=== PATIENT | female | born 1990 | race Caucasian/White ===

== ENCOUNTER 2022-01-14 00:55 | Emergency (ER) | payer BC, SELFPAY ==
[2022-01-14 01:13] VITALS: BP 129/81; PULSE 94; RESP 18; TEMP 36.3; O2SAT 99
--- NOTE | 2022-01-14 01:33 | ED_ITS ---
HPI - General Adult General Date Seen: 01/14/22 Chief complaint: Laceration/Wound Stated complaint: Infected incision post Time Seen by Provider: 01/14/22 01:17 Source: patient History of Present Illness HPI narrative: Patient is a 31-year-old woman who had a baby on December 31 at [facility]. She had a . She comes in because of concerns about her incision, which seems like it has been a little bit red on 1 and. She says it has been improving, she has been trying to take extra good care, but she wanted to make sure it looked okay. She also says that she had an IUD placed after her delivery, which she says came out when she was straining to have a bowel movement. She also has rash on her face. She also has had hives which are now improved. She also thinks the urinary catheter which was placed was removed without the balloon completely lowered because she has had urethral pain since it was removed. She denies symptoms of a bladder infection. She has not had fevers. Related Data Home Medications Medication Instructions Recorded Confirmed albuterol sulfate 90 mcg/actuation inhalation 01/14/22 aerosol inhaler (Ventolin HFA) bisacodyl 10 mg rectal suppository mg ME 01/14/22 Allergies Allergy/AdvReac Type Severity Reaction Status Date / Time Sulfa (Sulfonamide Allergy Verified 01/14/22 01:12 Antibiotics) Review of Systems Status of ROS: Reports: 10 or more systems reviewed and unremarkable except as noted in History and below [facility] Social History Smoking Status: Unknown if ever smoked Do you use any of these nicotine containing products: None Second hand tobacco smoke exposure: No Non-prescribed substance use: denies use Exam Narrative: Exam Narrative: Vital signs as noted above. In general, an alert, well-appearing patient. Head: Normocephalic, atraumatic. Eyes: Pupils are equal reactive. Extraocular movements are full. Conjunctivae are normal. ENT: Mucous membranes are moist. Throat is normal. Neck: Supple without lymphadenopathy. Heart: Regular rate and rhythm. No murmur or rub. Lungs: Clear bilaterally. No increased work of breathing, crackles or wheezes. Abdomen: Soft and nontender. scar is well healed. On the left end there is a small stitch abscess. No surrounding cellulitis. Extremities: Well perfused. No edema. No calf tenderness. Pulses intact. Neurologic: Patient is alert and oriented to person and place. Speech is fluent. Face is symmetric. Moves all extremities equally. Affect: Normal. Skin: Warm and dry. Well perfused. I do not see any hives at this time. On her face she has several scattered patches of erythematous and crusted lesions consistent with impetigo. Const: Vital Signs, click to edit/add: Vital Signs - 24 hr 01/14/22 01:13 Temperature 97.3 F L Pulse Rate [Right Pulse Oximeter] 94 Respiratory Rate 18 Blood Pressure [Le ft Upper Arm] 129/81 Pulse Oximetry 99 Oxygen Delivery Me thod Room Air Documenting provider has reviewed patient's vital signs: yes Course Course Hospital Course: She declines urinalysis today, she says her symptoms do not feel consistent with a urinary tract infection, she thinks it is related to the catheter. With regard to her IUD, I have asked her to follow that up with her OB Gyne. I think her incision looks fine, I think that the little stitch abscess looks like it is opened and healing fine. No evidence of other infection, seroma or other concerning findings with her incision. She does appear to have some impetigo on her face which we will treat with Keflex. Hives seem to have resolved. She has not previously been on antibiotics. Encouraged her to follow up with her Ob for care as planned, sooner for any worsening symptoms. Vital Signs Vital signs: Initial Vital Signs Temperature 97.3 F L 01/14/22 01:13 Temperature Source Temporal Artery Scan 01/14/22 01:13 Pulse Rate 94 01/14/22 01:13 Pulse Rhythm 01/14/22 01:13 Respiratory Rate 18 01/14/22 01:13 Blood Pressure 129/81 01/14/22 01:13 Blood Pressure Mean 97 01/14/22 01:13 Blood Pressure Position Semi-Fowlers 01/14/22 01:13 Pulse Oximetry 99 01/14/22 01:13 Oxygen Delivery Method 01/14/22 01:13 Vital Signs Temperature 97.3 F L 01/14/22 01:13 Pulse Rate 94 01/14/22 01:13 Respiratory Rate 18 01/14/22 01:13 Blood Pressure 129/81 01/14/22 01:13 Pulse Oximetry 99 01/14/22 01:13 Oxygen Delivery Method 01/14/22 01:13 Temperature 97.3 F L 01/14/22 01:13 Pulse Rate 94 01/14/22 01:13 Respiratory Rate 18 01/14/22 01:13 Blood Pressure 129/81 01/14/22 01:13 Pulse Oximetry 99 01/14/22 01:13 Oxygen Delivery Method 01/14/22 01:13 Discharge Plan Discharge Clinical Impression: Encounter for postoperative wound check, Impetigo Patient Disposition: Home, Self-Care Condition: Stable Instructions: Impetigo (ED) Additional Instructions: Antibiotic as prescribed for impetigo. Follow-up with your OB as planned for care. Concerns at that time. If you feel your incision is worsening in terms of redness, swelling, pain, follow up sooner. Prescriptions: No Action bisacodyl 10 mg suppository ME Label Comments: UNWRAP AND INSERT 1 SUPPOSITORY RECTALLY EVERY DAY NEEDED albuterol sulfate [Ventolin HFA] 90 mcg/actuation HFA aerosol inhaler INHALATION Label Comments: INHALE 2 PUFFS BY MOUTH EVERY 4 HOURS NEEDED FOR WHEEZING OR SHORTNESS OF BREATH Stand Alone Forms: [facility] Info Instructions
--- OUTSIDE RECORDS SUMMARY | 2022-01-14 01:41 | XMS_ITS | Encounter Summary ---
:1990 Author Organization [facility] Address [address] [place] [id number] Phone Care Team Providers Name Role Phone Pcp, No Primary Care Provider Unavailable Encounter Details Date Type Department Care Team Description 08/17/2019 Travel Social History Tobacco Use Types Packs/Day Years Used Date Smoking Tobacco: Never Alcohol Use Standard Drinks/Week Comments No 0 (1 standard drink = 0.6 oz pure alcoho l) 12/01/11 denies Sex Assigned at Date Recorded Not on file COVID-19 Exposure Response Date Recorded In the last month, have you been in contact Unable to assess 08/17/2019 3:06 PM CDT with someone who was confirmed or suspected to have Coronavirus / COVID-19? 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
--- OUTSIDE RECORDS SUMMARY | 2022-01-14 01:41 | XMS_ITS | Encounter Summary ---
:1990 Author Organization [facility] Address [address] [place] [address] Phone Care Team Providers Name Role Phone Pcp, No Primary Care Provider Unavailable Reason for Visit Auth/Cert (Routine) Specialty Diagnoses / Procedures Referred By Contact Refer red To Contact NURSE MIDWIFERY Neha Hodges MD Thread Tool Grinder Set Up Operator [id number] [place] [address] Phone: Fax: Referral ID Status Reason Start Date Expiration Date Visits Requ ested Visits Authorized [id number] 11/26/2021 1 1 Encounter Details Date Type Department Care Team Description 11/26/2021 - Hospital Encounter [facility] Neha Hodges MD [address] [id number] Antepartum 11/30/2021 701 Maria Del Carmen Steele MD [address] [id number] complication of [address] [place], [place] [address] Social History Tobacco Use Types Packs/Day Years Used Date Smoking Tobacco: Never Alcohol Use Standard Drinks/Week Comments No 0 (1 standard drink = 0.6 oz pure alcoho l) 12/01/11 denies Sex Assigned at Date Recorded Not on file documented as of this encounter Last Filed Vital Signs Vital Sign Reading Time Taken Comments Blood Pressure 118/67 11/30/2021 9:41 AM CDT Pulse 77 11/30/2021 9:42 AM CDT Temperature 36.4 ??C (97.5 ??F) 11/30/2021 9:41 AM CDT Respiratory Rate 18 11/30/2021 9:41 AM CDT Oxygen Saturation 98% 11/30/2021 9:42 AM CDT Inhaled Oxygen Concentration - - Weight - - Height - - Body Mass Index - - documented in this encounter Discharge Summaries Maria Del Carmen Bravo MD - 11/30/2021 2:38 PM CDT Images from the original note were not included. ANTEPARTUM DISCHARGE - PGY 4 Anjali Hoang : 1990 Sex: female Admit Date: 11/26/2021 Admit Provider: Neha Hodges MD Discharge Date: 11/30/21 Discharge Provider: Maria Del Carmen Bravo MD Admission Diagnosis: - IUP at 32w0d - Severe opiate use disorder - Hx prior x1 (high transverse) - Yeast vaginitis - MDD/EVAN - ADHD - Hx Hep C infection, resolved - Mild intermittent asthma, albuterol prn - GHTN, FGR in prior preg - H/o cerebral arterial malformation Discharge Diagnosis: - IUP at 32w4d - Gestational diabetes Procedures performed: - GCT - TDAP Admission History: Anjali Hoang is a 31 y.o. at 32w0d by LMP c/w 7w US who presents today for MAT. Her main complaints today include ongoing painful susi horses in her legs, fatigue and vaginal itching/discharge that seems like yeast. She has a longstanding h/o drug use starting at the age of 20. Her last use was 11/25. She has recently used herion, fentanyl which is sometimes laced with methamphetamines. She has previously been on MAT with [employer]. She is not currently having withdrawal symptoms but was told to come in today to start MAT. She was previously receiving care at [facility] and [facility], but was told there may be more support for her here at [facility]. She was last seen in clinic on 09/08/2021 by M at 20w5d who recommended delivery between 37 and 38 weeks via repeat CS. She is planning to have a BTL with this procedure. During this discussion, UDS at time of delivery and assessment of meconium for screening for baby was recommended and she agreed. G iven prior h/o ASD/PFO, echocardiogram was recommended as well. Discussed patient's history of cerebral arterial malformation and that it should not affect the . Her last delivery was 14 months ago at [facility]. She was admitted for Subutex reinitiation. Hospitalization Course: Anjali previously had severe precipitated withdrawal while starting Subutex therapy and hopes to avoid this. Her last use was the morning of her admission. This was discussed with addiction medicine, and decision was made to do a micro- induction in order to avoid precipitated withdrawal. Even so, Anjali was very hesitant to start Subutex out of fear of precipitated withdrawal, but eventually agreed to proceed. On HD#1 she was started on a 0.5 mg dose which was then increased to a 1 mg dose. She tolerated this well without symptoms of precipitated withdrawal. On HD#2 she was then transitioned to thestandard induction dose of 2 mg followed by 6 mg 30 minutes later, followed a second dose 8 mg laterthat night. On HD#3 she was continued on an 8mg BID dose. On HD#4 she was transitioned back to her home dose of 8 mg AM, 8 mg PM, and 2 mg qHS. She continued to have withdrawal symptoms at this dose and we discussed increasing the dose but she did not want to increase the dose. During her stay she was given standard adjuvant medications to help with withdrawal symptoms. She found gabapentin to be this most helpful medication. She was discharged with a 30 day supply of Gabapentin at the recommendation of addiction medicine. Her withdrawal symptoms gradually improved as her induction progressed. She will discharge to home with plans to restart treatment in her prior outpatient MAT treatment program in [facility]. During her stay she only rarely allowed monitoring. She completed a GCT which was elevated at 203 indicating a diagnosis of GDM. Blood glucoses were monitored in house. She was not interested in monitoring blood glucose levels at home. She stopped her Wellbutrin, Buspar, and Vyvanse when she started using again in the 2.5 weeks prior to admission. She was restarted on Wellbutrin and Buspar for MDD/EVAN. Her Vyvanse was not restarted. She has a history GHTN. Her HELLP labs were normal, and BP were normotensive. She was diagnosed with yeast on admit and was given Diflucan. She is considering having a tubal ligation after delivery. She signed FTP paperwork on 11/27. She plans to transfer her care to [facility] and was set up with this for discharge. Follow-Up: - She is to return to the [facility] clinic on 12/15/21 for a visit and a growth US - She will follow up with her MAT provider, Dr. Carroll, as scheduled She is to call or return to clinic immediately for temperature greater than 101 degrees F, vaginal bleeding, contractions, decreased movement and pain not controlled with prescribed medications. She was given prescriptions for Medication List START taking these medications * GABApentin 300 mg Capsule Commonly known as: NEURONTIN Take 1 capsule (300 mg) by mouth twice daily. * GABApentin 600 mg Tabs Commonly known as: NEURONTIN Take 1 tablet (600 mg) by mouth at bedtime. Senexon-S 8.6-50 mg tablet Generic drug: sennosides-docusate sodium Take 1-2 tablets by mouth twice daily as needed for Constipation. * This list has 2 medication(s) that are the same as other medications prescribed for you. Read thedirections carefully, and ask your doctor or other care provider to review them with you. CHANGE how you take these medications hydrOXYzine 25 mg tablet Commonly known as: ATARAX;VISTARIL Take 1-2 tablets (25-50 mg) by mouth every 6 hours as needed for Anxiety. What changed: medication strength how much to take how to take this when to take this reasons to take this STOP taking these medications cloNIDine 0.1 mg Tabs Commonly known as: CATAPRES Where to Get Your Medications These medications were sent to [facility] [place] [id number] Hours: 01/11 GABApentin 300 mg Capsule GABApentin 600 mg Tabs hydrOXYzine 25 mg tablet Senexon-S 8.6-50 mg tablet Attending for the discharge: Pace. Jose Gonzalze MD MPH STONE TRIMMER PGY-4 DISCHARGE FACULTY NOTE On the date of the resident's note, I personally participated in the final examination and review ofhospitalization and concur with the discharge plans and follow-up as outlined. I discussed with the resident and agree with the resident???s findings and plan documented in the resident???s note from above. Any revisions by me are documented. The discharge process has taken: greater than 30 minutes Maria Del Carmen Bravo MD, 12/09/2021 1:43 AM documented in this encounter Medications at Time of Discharge Medication Sig Dispensed Refills Start Date End Date sennosides-docusate Take 1-2 tablets by 60 tablet 3 022 sodium (STOOL mouth twice daily as SOFTENER/LAXATIVE) 8.6-50 needed for mg oral tablet Constipation. hydrOXYzine Take 1-2 tablets 120 tablet 0 11/30/2021 (ATARAX;VISTARIL) 25 mg (25-50 mg) by mouth oral tablet every 6 hours as needed for Anxiety. GABApentin (NEURONTIN) Take 1 capsule (300 120 capsule 2 300 mg oral capsule mg) by mouth twice daily. GABApentin (NEURONTIN) Take 1 tablet (600 105 tablet 2 11/30 600 mg oral TABS mg) by mouth at bedtime. documented as of this encounter Progress Notes Maria Del Carmen Bravo MD - 11/30/2021 2:38 PM CDT [facility] Antepartum Progress Note PGY-4 S: Irritable this morning, and really wants to be discharged. Is OK staying at her prior dose of buprenorphine. States she feels like her prior dose will keep her safe even though she relapsed on that dose before. Also wants nicotine replacement; her vape is out of solution. O: Patient Vitals for the past 24 hrs: BP Temp Temp src Pulse Resp SpO2 11/30/21 0942 -- -- -- 77 -- 98 % 11/30/21 0941 118/67 36.4 ??C (97.5 ??F) Tympanic -- 18 -- 11/30/21 0013 120/73 36.7 ??C (98.1 ??F) Tympanic 84 17 -- Gen: alert, appears mildly restless, NAD CV: regular rate Resp: non-labored breathing on room air Abd: gravid Ext: no edema, calves non-tender Declined monitoring today, last 11/26 BL 140, mod shayla, +accels, no decels, no ctx on toco A/P: Anjali Hoang is a 31 y.o. at 32w4d now HD#5 admitted for resumptions of MAT for OUD. notable for: Opioid use disorder restarting MAT, MDD, EVAN, ADHD, mild- intermittent asthma,class I obesity, hx HTCS, hx FGR in prior preg, scant PNC # Opioid use disorder - MAT therapy resumed this admission. S/p 2D of Subutex 8 mg BID > D#1 of 11/16, 2 qHS (home regimen). PM dose to be given at 1700 rather than 2000; which is what she takes at home.>D#2 11/16, 2Qhs - Continue COWS score q4h - Continue adjunctive agents for management of withdrawal symptoms including clonidine, Vistaril, gabapentin, Flexeril, Imodium, melatonin, Tylenol, antiemetics. - Gabapentin scheduled as this has been very helpful - current dose 300/300/400 (higher dose at night due to symptoms in early AM) - Has Subutex available at home for discharge - s/p addiction medicine consult. They will see her today. She plans to discharge to previous outpatient program. Of note, her partner with home she lives ([facility]) is currently using. - UDS on admission positive for Fentanyl, oxycodone, amphetamines - Infectious work up including HIV, Hep C PCR, Hep B negative # MDD # EVAN # ADHD - Continue BANDMILL OPERATOR Wellbutrin, Buspar - Holding BANDMILL OPERATOR Vyvanse # Mild intermittent asthma - Continue PRN albuterol # Chronic constipation - PRN Dulcolax 10 mg suppository daily-- this is patient's preferred method of constipation management. - Continue BANDMILL OPERATOR Senokot, milk of magnesia # Normocytic anemia - PO ferrous sulfate every other day; held inpatient due to general discomfort - Consider iron studies prior to discharge, or when patient more accepting of lab draws # Left carotid arterial malformation - s/p MFM, no intervention indicated and no affect on current # Hx FGR - Plan for growth US in third trimester # Hx GHTN - Baseline HELLP labs and UPC wnl. BPs wnl. # well being - FHT appropriate for gestational age when last assessed 11/26. - Continue TID monitoring when allowed by patient # PNC - Rh pos, GBS pos, other PNL wnl - GCT today - TDAP today # Delivery planning - Scheduled repeat section at 37 weeks given hx HTCS Ppx: SCDs for DVT ppx Maria Del Carmen Bravo MD, 11/30/2021 5:07 PM Judie Matos RN - 11/30/2021 2:36 PM CDT DISCHARGE NOTE D: Patient has been discharged. A: (As documented in the Discharge Planning Flowsheet) Discharge Instructions (AVS): AVS given Discharge clothing/valuables: has adequate clothing Discharge medications: patient received medications (including gabapentin) Home equipment status: no equipment needed Home equipment/supplies recommended: none Final discharge destination: Home or self care R: The patient understood the AVS. Patient felt safe to discharge and all questions were answered prior to leaving. P: Support patient if they call back with questions. Judie Matos RN, 11/30/2021 2:36 PM Neha Hodges MD - 11/29/2021 12:54 PM CDT [facility] Antepartum Progress Note PGY-4 S: Feeling a little better this morning. Still has muscle cramping; massage and baths have helped. Denies contractions, leaking fluid, vaginal bleeding. Endorses normal movement. O: Patient Vitals for the past 24 hrs: BP Temp Temp src Pulse Resp SpO2 11/29/21 0800 128/77 36.2 ??C (97.2 ??F) Tympanic 99 17 98 % 11/28/21 1955 123/89 36.7 ??C (98.1 ??F) -- 109 -- 100 % 11/28/21 1618 130/72 36.5 ??C (97.7 ??F) -- 97 -- 98 % Gen: alert, appears mildly restless, NAD CV: regular rate Resp: non-labored breathing on room air Abd: gravid Ext: no edema, calves non-tender Declined monitoring today, last 11/26 BL 140, mod shayla, +accels, no decels, no ctx on toco A/P: Anjali Hoang is a 31 y.o. at 32w3d now HD#4 admitted for resumptions of MAT for OUD. notable for: Opioid use disorder restarting MAT, MDD, EVAN, ADHD, mild- intermittent asthma,class I obesity, hx HTCS, hx FGR in prior preg, scant PNC # Opioid use disorder - MAT therapy resumed this admission. S/p 2D of Subutex 8 mg BID > D#1 of 11/16, 2 qHS (home regimen). PM dose to be given at 1700 rather than 2000; which is what she takes at home. - Continue COWS score q4h - Continue adjunctive agents for management of withdrawal symptoms including clonidine, Vistaril, gabapentin, Flexeril, Imodium, melatonin, Tylenol, antiemetics. - Gabapentin scheduled as this has been very helpful - current dose 300/300/400 (higher dose at night due to symptoms in early AM) - Has Subutex available at home for discharge - s/p addiction medicine consult. Will have them follow-up with her on Tuesday. She plans to discharge to previous outpatient program. Of note, her partner with home she lives (FOB) is currently using. - UDS on admission positive for Fentanyl, oxycodone, amphetamines - Infectious work up including HIV, Hep C PCR, Hep B negative # MDD # EVAN # ADHD - Continue BANDMILL OPERATOR Wellbutrin, Buspar - Holding BANDMILL OPERATOR Vyvanse # Mild intermittent asthma - Continue PRN albuterol # Chronic constipation - Begin PRN Dulcolax 10 mg suppository daily-- this is patient's preferred method of constipation management. - Continue BANDMILL OPERATOR Senokot, milk of magnesia # Normocytic anemia - PO ferrous sulfate every other day; held inpatient due to general discomfort - Consider iron studies prior to discharge, or when patient more accepting of lab draws # Left carotid arterial malformation - s/p MFM, no intervention indicated and no affect on current # Hx FGR - Plan for growth US in third trimester # Hx GHTN - Baseline HELLP labs and UPC wnl. BPs wnl. # well being - FHT appropriate for gestational age when last assessed 11/26. - Continue TID monitoring when allowed by patient # PNC - Rh pos, GBS pos, other PNL wnl - GCT today - TDAP today # Delivery planning - Scheduled repeat section at 37 weeks given hx HTCS Ppx: SCDs for DVT ppx Jose Gonzalez MD MPH STONE TRIMMER PGY-4 11/29/2021 12:54 FACULTY NOTE I saw and evaluated the patient with the resident on 11/29/2021. I discussed and agree with findings and plan documented in Dr. Gonzalez's note dated 11/29/2021. Any revisions by me are documented. Neha Hodges MD, 11/29/2021 2:27 PM Chela Barakat MD - 11/28/2021 11:16 AM CDT [facility] Antepartum Progress Note PGY-4 S: Reports generally feeling unwell without specific bothersome symptoms. Denies contractions, leaking fluid, vaginal bleeding. Endorses normal movement. Denies dysuria, cramping. O: Patient Vitals for the past 24 hrs: BP Temp Temp src Pulse Resp SpO2 11/28/21 0800 126/69 36.7 ??C (98.1 ??F) Tympanic 93 16 98 % 11/27/212020 124/78 37 ??C (98.6 ??F) Tympanic 97 18 98 % Gen: alert, appears mildly restless, NAD CV: regular rate Resp: non-labored breathing on room air Abd: gravid Ext: no edema, calves non-tender Membranes: Intact Declined monitoring today, last 11/26 BL 140, mod shayla, +accels, no decels, no ctx on toco A/P: Anjali Hoang is a 31 y.o. at 32w2d now HD#3 admitted for resumptions of MAT for OUD. notable for: Opioid use disorder restarting MAT, MDD, EVAN, ADHD, mild- intermittent asthma,class I obesity, hx HTCS, hx FGR in prior preg, scant PNC # Opioid use disorder - MAT therapy resumed this admission. Continue Subutex 8 mg BID. - Continue COWS score q4h - Continue adjunctive agents for management of withdrawal symptoms including clonidine, Vistaril, gabapentin, Flexeril, Imodium, melatonin, Tylenol, antiemetics - UDS on admission positive for Fentanyl, oxycodone, amphetamines - Infectious work up including HIV, Hep C PCR, Hep B negative # MDD # EVAN # ADHD - Continue BANDMILL OPERATOR Wellbutrin, Buspar - Holding BANDMILL OPERATOR Vyvanse # Mild intermittent asthma - Continue PRN albuterol # Chronic constipation - Begin PRN Dulcolax 10 mg suppository daily-- this is patient's preferred method of constipation management. - Continue BANDMILL OPERATOR Senokot, milk of magnesia # Normocytic anemia - Begin PO ferrous sulfate every other day - Consider iron studies prior to discharge, or when patient more accepting of lab draws # Left carotid arterial malformation - s/p MFM, no intervention indicated and no affect on current # Hx FGR - Plan for growth US in third trimester # Hx GHTN - Baseline HELLP labs and UPC wnl. BPs wnl. # well being - FHT appropriate for gestational age when last assessed 11/26 - Continue TID monitoring when allowed by patient # PNC - Rh pos, GBS pos, no GCT, other PNL wnl # Delivery planning - Scheduled repeat section at 37 weeks given hx HTCS Ppx: SCDs for DVT ppx Jamison Carcamo MD STONE TRIMMER Resident PGY-4 11/28/2021 11:38 FACULTY NOTE I saw and evaluated the patient Today, 11/28/2021. I discussed with the resident and agree with the resident???s findings and plan documented in the resident???s note from above. Any revisions by me aredocumented. Chela Barakat MD, 11/28/2021 5:07 PM Niesha Mcguire MD - 11/27/2021 1:22 PM CDT Antepartum Progress Note S: Patient feeling unwell today. She has complaints of feeling hot and back pain. She is very concernedabout going into precipitated withdrawal because this has happened to her in the past. Denies contractions, leakage of fluid or vaginal bleeding. She does not feel like she would be able to go home tomorrow as she thinks she won't be ready. She states that she needs more time. Does not feel like she would be able to tolerate a growth US today. Patient states she will likely go home at the time of discharge. She would need her boyfriend to pick her up. However, her boyfriend also uses drugs. He has previously been in MAT but is not currently. notable for: - Opioid use disorder, restarting MAT - MDD/EVAN, ADHD - H/o Hep C infection, resolved - Mild intermittent asthma - H/o gHTN in prior - H/o high transverse CS - H/o FGR in prior - BMI 31 - H/o cerebral arterial malformation O: Patient Vitals for the past 24 hrs: BP Temp Temp src Pulse Resp SpO2 11/27/21 0820 -- -- -- 78 -- -- 11/27/21 0400 111/57 36.7 ??C (98.1 ??F) -- 77 -- -- 11/27/21 0357 111/57 36.7 ??C (98.1 ??F) Tympanic 77 18 95 % 11/26/21 2357 118/72 36.8 ??C (98.3 ??F) Tympanic 65 18 97 % Gen: Resting comfortably, NAD CV: RR, well perfused PULM: Non-labored breathing on RA Abd: Gravid, nontender, non-distended Ext: Trace edema b/l FHT: Patient declines monitoring today. Labs: Lab Results Component Value Date/Time WBC 9.99 11/26/2021 1130 RBC 3.31 (L) 11/26/2021 1130 HGB 9.8 (L) 11/26/2021 1130 HCT 29.4 (L) 11/26/2021 1130 PLT 249 11/26/2021 1130 MCV 88.8 11/26/2021 1130 MCH 29.6 11/26/2021 1130 MCHC 33.3 11/26/2021 1130 RDW 12.9 11/26/2021 1130 MPV 10.4 11/26/2021 1130 Lab Results Component Value Date/Time NA 138 11/26/2021 1101 K 3.4 (L) 11/26/2021 1101 CHLORIDE 105 11/26/2021 1101 CO2 21 (L) 11/26/2021 1101 GLU 135 (H) 11/26/2021 1101 UN 8 11/26/2021 1101 CR 0.53 11/26/2021 1130 CA 8.9 11/26/2021 1101 Lab Results Component Value Date/Time ACETUR NEG 11/26/2021 1400 AMPHETAMINE POS (A) 11/26/2021 1400 BARBITURATE NEG 11/26/2021 1400 BENZUR NEG 11/26/2021 1400 COCAINEUR NEG 11/26/2021 1400 COMMENTUR 11/26/2021 1400 [id number], Amphetamine, Methamphetamine, Codeine, Fentanyl, Norfentanyl, Morphine, Tramadol, and Tramadol metabolite present. LSDUR NEG 11/26/2021 1400 METHUR NEG 11/26/2021 1400 OPIUR POS (A) 11/26/2021 1400 PCPUR NEG 11/26/2021 1400 PROPOX NEG 11/26/2021 1400 SALUR NEG 11/26/2021 1400 A/P: Anjali Hoang is a 31 y.o. at 32w1d by LMP c/w 7wk US, HD#2 admitted for antepartum concerns regarding MAT and opioid withdrawal. # Opioid use disorder - Previously on MAT with Subutex. Now undergoing microdosing induction. - COWS scoring Q4H. UDS positive fentanyl, oxycodone, opiate, amphetamine. - Infectious labs reassuring with HIV, Hep C PCR, Hep B sAg nonreactive. Hep B sAb reactive. - Addiction medicine consulted, appreciate recommendations. # MDD/EVAN, ADHD - BANDMILL OPERATOR wellbutrin, buspar restarted in house - Plan to discuss plans for Vyvanz in at a later time # H/o Hep C infection, resolved - PCR previously negative this - Repeat PCR in house negative and LFTs normal # Mild intermittent asthma - No issues currently, PRN albuterol # H/o gHTN in prior - Baseline HELLP labs today nl, UPC 0.12 - Serial BP monitoring # H/o cerebral arterial malformation # Headaches - Per MFM note, not currently impacting . - Tylenol PRN. # FWB - Previously category I, reactive and reassuring. Currently refusing additional monitoring. Pending course, will offer monitoring again later today. # PNC - Rh positive, antibody negative, rubella immune, GBS positive - Third trimester labs Hgb 9.8, RPR nonreactive - Previously agreeable to Tdap PTD, ordered. - HbA1c 5.3% in , GCT not yet performed - Infectious labs previously nonreactive; Ucx no growth - growth US to be ordered likely outpatient per prior MFM recommendation given patient's preference. - Contraception: Undecided but considering BTL, FTP to be signed while in house if possible. Delivery Plan: Given h/o high transverse CS, plans for repeat CS between 37 and 38 weeks gestation. Dispo: Possible discharge to home tomorrow pending course. Patient seen and care plan discussed with Dr. Mcguire. Gigi Ellis MD, MPH Criminal Psychologist PGY-2 11/27/2021 13:22 FACULTY NOTE I saw and evaluated the patient Today, 11/27/2021. I discussed with the resident and agree with the resident???s findings and plan documented in the resident???s note from above. Any revisions by me aredocumented. Niesha Mcguire MD, 11/27/2021 10:03 PM Dennis Barraza RN - 11/26/2021 12:30 PM CDT 0945 pt presents to triage to withdrawal in an inpatient setting. Pt reports that she is about 32 weeks , is an IV drug user (heroin that is often mixed with fentanyl and sometimes meth) and was previously on suboxone but had missed about 2 weeks of doses. She states she was prescribed 8mg BIDand 2mg HS. Pt states that the last time she had a relapse and restarted suboxone she went into an acute withdrawal and is hoping to avoid this this time. Pt reports feeling embarrassed and guilty for her use. RN provided support and reassurance to pt that she is doing the right thing by seeking treatment and that no one here is judging her or is here to make her feel guilty. Commended pt for seeking treatment. OB team notified of pt arrival. Pt also presented with her community living instructor-our SW was notified of pt and handoff completed. RN discussed resources available to pt including but not limited to mother baby program, [facility], [facility] and SW. Pt states interest in possible transferring care from [place]. 1115 NST completed. Pt reporting no s/s of withdrawal at this time. Will notify RN as needed. 1400 pt sleeping soundly Jazzy Montelongo LICSW - 11/26/2021 11:32 AM CDT Inpatient Social Work Note Patient Name: Anjali Hoang Date of : 1990 Age: 31 y.o. MR: [id number] Insurance: [facility] Summary: SW met with patient and patient's [facility] chemical health worker Charisma Mike. SW obtained RUDOLPH tospeak with [facility] and patient's on-going marriage and family social worker. Patient reports that she would like to detox here and then return home to her outpatient treatment. Patient is feeling guilt and shame around her relapse. Patient states that she has had CPS involvement in the past and that she has her oldest son, 8 years old, that is living with his grandparents. Patient reports that her younger son is being cared for right now by her boyfriends mom. Patient states that she and her boyfriend are on good terms and that the only support they would need is therapy and she can get that through [facility]. SW informed that she is here if patient needs/wants to talk more. Jazzy Montelongo LICSW, 11/26/2021 11:39 AM Jazzy Montelongo LICSW, 11/26/2021 11:32 AM documented in this encounter H&P Notes Fiest, Neha K, MD - 11/26/2021 10:31 AM CDT OB HISTORY AND PHYSICAL Anjali Hoang Date of : 1990 HPI: Anjali Hoang is a 31 y.o. at 32w0d by LMP c/w 7w US who presents today for MAT. She denies contractions, leaking fluid, vaginal bleeding. + movement. She also denies headaches, vision changes, SOB, chest pain, nausea/vomiting, fevers/chills, dysuria, and foul-odor discharge. Her main complaints today include ongoing painful susi horses in her legs, fatigue and vaginal itching/discharge that seems like yeast. notable for: - Opioid use disorder - MDD/EVAN, ADHD - H/o Hep C infection, resolved - Mild intermittent asthma - H/o gHTN in prior - H/o high transverse CS - H/o FGR in prior - BMI 31 - Desires permanent sterilization - H/o cerebral arterial malformation She has a longstanding h/o drug use starting at the age of 20. Her last use was 11/25. She has recently used herion, fentanyl which is sometimes laced with methamphetamines. She has previously been on MAT with [facility]. She is not currently having withdrawal symptoms but was told to come in today to start MAT. She was previously receiving care at [facility] and [facility], but was told there may be more support for her here at [facility]. She was last seen in clinic on 09/08/2021 by MFM at 20w5d who recommended delivery between 37 and 38 weeks via repeat CS. She is planning to have a BTL with this procedure. During this discussion, UDS at time of delivery and assessment of meconium for screening for baby was recommended and she agreed. Daniela mina prior h/o ASD/PFO, echocardiogram was recommended as well. Discussed patient's history of cerebral arterial malformation and that it should not affect the . Her last delivery was 14 months ago at [facility]. OBGYN History: - - Last Pap: Not on file, due PP - Sexually active: One partner Lab Results: Lab Results Component Value Date/Time ABORHG B POS 11/26/2021 1130 HCT 29.4 (L) 11/26/2021 1130 HGB 9.8 (L) 11/26/2021 1130 HBSAG Nonreactive 11/26/2021 1130 HIVANTIGABY Nonreactive 11/26/2021 1130 GLU 135 (H) 11/26/2021 1101 Patient Active Problem List Diagnosis Date Noted Antepartum complication of 11/26/2021 Opioid use disorder, moderate, dependence () 08/17/2019 HISTORY No past medical history on file. No past surgical history on file. No family history on file. Social History Tobacco Use Smoking status: Never Substance Use Topics Alcohol use: No Comment: 12/01/11 denies Drug use: Yes Types: Heroin Comment: 12/01/11 current heroin use Medications Prior to Admission Medication Sig Dispense Refill cloNIDine (CATAPRES) 0.1 mg oral tablet hydrOXYzine (ATARAX;VISTARIL) 50 mg oral tablet Allergies Allergen Reactions Sulfa Antibiotics Unknown REVIEW OF SYSTEMS: A 10 point review of systems was completed and was negative other than as noted in the HPI. PHYSICAL EXAM BP 123/78 Pulse 98 Temp 36.4 ??C (97.5 ??F) (Tympanic) LMP 04/16/2021 (Approximate) Gen: NAD CV: Regular rate, rhythm Lungs: CTAB, non-labored breathing Abd: Gravid, non-tender, non-distended Ext: Trace peripheral extremity edema FHT: Baseline 125 bpm; moderate variability; accels present; absent decelerations TOCO 0 contractions in 10 minutes Studies: T&S, CBC, BMP, RPR, HELLP labs, UPC, GC/Chlam/Trich, GBS, wet prep, HIV, Hep B sAg, HepB sAb, Hep C PCR, UDS Assessment & Plan: Anjali Hoang is a 31 y.o. at 32w0d by LMP c/w 7w US who presents today for MAT. # Opioid use disorder - Previously on MAT with Subutex. - Over last two weeks, not able to fill prescription and started using again. - Hoping to restart Subutex in controlled environment. - Planning to manage with [facility] protocol Opioid inpatient withdrawal Guidelines. - COWS scoring Q4H - Discusses case with addiction medicine who would be available to meet with patient tomorrow. Appreciate recommendations. 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 - Tylenol PRN. # FWB - Category I, reactive and reassuring # PNC - Reviewed outside records today. - Rh positive, antibody negative, rubella immune - HbA1c 5.3%, GCT not yet performed - Infectious labs previously nonreactive; Ucx no growth - Repeat labs ordered today including T&S, CBC, RPR, Hep B sAg, Hep C PCR, HIV - growth US to be ordered in house vs outpatient per prior MFM recommendation - MOD: Repeat CS at 37-38w - Contraception: Undecided but considering BTL, FTP to be signed while in house # FWB: Cat I tracing, no interventions at this time - TID Monitoring Patient seen and discussed with Dr. Hodges. Gigi Ellis MD, MPH STONE TRIMMER PGY-2 11/26/2021 18:03 FACULTY NOTE I saw and evaluated the patient on 11/26/2021. I discussed and agree with findings and plan documented in Dr. Ellis's note dated 11/26/2021. Any revisions by me are documented. Neha Hodges MD, 11/26/2021 9:06 PM documented in this encounter Consult Notes Nikki Schulz APRN, E/M ENGINEER - 11/27/2021 12:33 PM CDTAssociated Order(s): CONSULT TO ADDICTION MEDICINE PHYSICIAN/ADVANCED PRACTICE PROVIDER Addiction consult completed on 11/27/2021 Nikki Schulz APRN, E/M ENGINEER, 11/27/2021 12:33 PM documented in this encounter Miscellaneous Notes Restricted notes were excluded Addiction Medicine Consult - Yuni Barakat PA-C - 11/30/2021 12:52 PM CDT ADDICTION MEDICINE PROVIDER follow up Anjali Hoang : 1990 Sex: female DISCLOSURE OF THIS MATERIAL IS PROHIBITED BY LAW. Do not copy this information into the medical record. REASON FOR CONSULT: I was asked to see Anjali Hoang by Neha Hodges regarding Induction onto buprenorphine. S: Patient ready to discharge, has a follow up with her provider tomorrow, 12/01. She feels the subutex dose is going well and she thinks she will stay at this dose. She finds gabapentin helpful for back pain and is interested in continuing it. Addiction Medicine Problem List: Opioid use disorder, severe- Return to the use of fentanyl the last 2 weeks , 32 weeks Hx Mood disorders including MDD,/EVAN, ADHD Recommendations: Okay to send with 30-day prescription of gabapentin 300 mg bid plus 600 mg at bedtime. Bridge script of subutex at previously stable dose 8 BID and 2mg HS x 7 days sent to discharge pharmacy. Patient should follow up with Dr. Carroll for ongoing management. Physical Exam: BP 118/67 (Cuff Location: Right Arm) Pulse 77 Temp 36.4 ??C (97.5 ??F) (Tympanic) Resp 18 LMP 04/16/2021 (Approximate) SpO2 98% There is no height or weight on file to calculate BMI. Physical Exam Constitutional: General: She is sleeping. Appearance: Normal appearance. HENT: Head: Normocephalic. Eyes: Conjunctiva/sclera: Conjunctivae normal. Right eye: Right conjunctiva is not injected. Left eye: Left conjunctiva is not injected. Comments: Pupils moderately dilated Pulmonary: Effort: Pulmonary effort is normal. Abdominal: Comments: Visibly Skin: General: Skin is moist. Neurological: Mental Status: She is oriented to person, place, and time. Psychiatric: Mood and Affect: Mood normal. Speech: Speech normal. Behavior: Behavior normal. Thought Content: Thought content normal. Other Diagnostic Studies: Primary care physician: No PCP I have spent 15 minutes with this patient today in which greater than 50% of this time was spent incounseling/coordination of care regarding OUD. Yuni Barakat PA-C 11/30/2021 12:52 DISCLOSURE OF THIS MATERIAL IS PROHIBITED BY LAW. 42 CFR part 2 prohibits disclosure of these records. This section of the Code of Federal Regulation prohibits you from making disclosure of this information unless disclosure is expressly permitted by the written consent of the person to whom it pertains or has otherwise permitted by 42 CFR, Part 2. A general authorization for the release of medical or other information is NOT sufficient for this purpose. 42 CFR , Part 2 restricts any use of the information to criminally investigate or prosecute any alcohol and/or drug abuse by the client. Nursing Assessment - Judie Matos RN - 11/30/2021 10:19 AM CDT Nursing Assessment Head to Toe Head to Toe Assessment Shift Summary Shift Summary Patient is very irritable this afternoon and not easy to redirect. She has been calling out with call light saying she needs to go. Awaiting d/c orders to print paperwork and meds to arrive from pharmacy. Judie Matos RN, 11/30/2021 2:22 PM Neurologic/Cognitive Within Defined Limits HEENT Within Defined Limits Cardiac Within Defined Limits Respiratory Within defined limits Neurovascular Within Defined Limits Gastrointestinal Within Defined Limits Abdominal appearance: Comments: Currently 32+4 weeks . Denies any leaking fluid, bleeding or contractions. Endorses +FM. Genitourinary Within Defined Limits Musculoskeletal Within Defined Limits Integumentary Within Defined Limits Patient Lines/Drains/Airways Status Active LDAs None Psychosocial Within Defined Limits Comments: No visitors at bedside. Judie Matos RN, 11/30/2021 10:25 AM Nursing Assessment - Savana Mcdonald RN - 11/30/2021 1:02 AM CDT Nursing Assessment Head to Toe Head to Toe Assessment Shift Summary Shift Summary Neurologic/Cognitive Within Defined Limits HEENT Within Defined Limits Cardiac Within Defined Limits Respiratory Within defined limits Neurovascular Within Defined Limits Gastrointestinal Within Defined Limits Genitourinary Within Defined Limits Musculoskeletal Within Defined Limits Integumentary Within Defined Limits Patient Lines/Drains/Airways Status Active LDAs None Psychosocial Within Defined Limits Nursing Assessment - Evelia Rodriguez RN - 11/29/2021 5:06 PM CDT Nursing OB Assessment Head to Toe Head to Toe Shift Summary D: 32+3 week antepartum pt here for withdrawal management. COWS scores of 6 and 4, respectively. GCTcompleted. Complains mostly of tightness/achiness of hips and abdomen and generalized anxiety. Subutex and Gabapentin were very effective for her symptoms. Endorses movement. Denies contractions,vaginal bleeding, or LOF. Consents to EFM. A: Placed pt on monitor from 2039 to 2109. R: FHR baseline 135, moderate variability, accelerations present, no decelerations. No contractions noted. Paged Gigi Ellis, OB G2 to review strip. P: Continue current plan of care. Monitor TID. Evelia Rodriguez RN, 11/29/2021 10:03 PM Neurologic/Cognitive Within Defined Limits HEENT Within Defined Limits Cardiac Within Defined Limits Respiratory Within defined limits Neurovascular Within Defined Limits Gastrointestinal Assessment Within Defined Limits except for: Additional GI Signs/Symptoms: abdominal discomfort and constipation Genitourinary Within Defined Limits Reproductive Perineum Assessment: Within Defined Limits Breast Assessment: Within Defined Limits Nipples Assessment: Within Definied Limits Musculoskeletal Assessment Within Defined Limits except for: Comments: Generalized tightness/achiness Integumentary Within Defined Limits No annotated images are attached to the encounter. Psychosocial Within Defined Limits Nursing Assessment - Savana Pete RN - 11/29/2021 11:06 AM CDT Nursing OB Assessment Head to Toe Head to Toe Shift Summary Pt is 32w3d. VSS. Reports feeling baby move and no vaginal leakage. Experiencing aching in hips and having nausea. Feels most relief from gabapentin. Did not sleep well last night. RN massaged hips, lowered blinds, and reduced temp of room; pt appreciated comfort measures. As of this morning, she is unsure if she'd like to discharge today. Reinforced that her team wants her to stay as long as she needs to feel supported. 1330 - no plans to discharge today. Preferred PRN meds: gabapentin (see updated order in JUN), acetaminophen, hydroxyzine, ondansetron when nauseous. Requested to delay OGTT until dinner time. Declineduse of SCDs but agreed to flex/point feet in bed for thrombosis prevention. Started Aqua-K pad for hip pain relief AndSavana busby, RN, 11/29/2021 11:13 AM Within Defined Limits HEENT Within Defined Limits Cardiac Within Defined Limits Respiratory Within defined limits Neurovascular Within Defined Limits Gastrointestinal Within Defined Limits Abdominal appearance: Genitourinary Within Defined Limits Reproductive Perineum Assessment: Within Defined Limits Breast Assessment: Within Defined Limits Nipples Assessment: Within Definied Limits Musculoskeletal Within Defined Limits Integumentary Within Defined Limits No annotated images are attached to the encounter. Psychosocial Within Defined Limits Psychosocial Assessment: Observed Patient Behaviors: Flat affect and quiet/withdrawn Verbalized Emotional State: Acceptance Family Behavior: not present Nursing Assessment - Savana Mcdonald RN - 11/28/2021 11:54 PM CDT Nursing OB Assessment Head to Toe Head to Toe Shift Summary Shift Summary Neurologic/Cognitive Within Defined Limits HEENT Within Defined Limits Cardiac Within Defined Limits Respiratory Within defined limits Neurovascular Within Defined Limits Gastrointestinal Within Defined Limits Genitourinary Within Defined Limits Reproductive Reproductive Musculoskeletal Assessment Within Defined Limits except for: Comments: Back pain Integumentary Within Defined Limits No annotated images are attached to the encounter. Psychosocial Within Defined Limits Nursing Assessment - Jannet Taylor RN - 11/28/2021 5:25 PM CDT Nursing OB Assessment Head to Toe Head to Toe Shift Summary Shift Summary Shift: (1530_1700) Vital signs stable, room air. COWS score of 3, pt appears to be resting comfortably in bed. C/o ongoing low back pain 5/10, refused pain meds. Requested anti anxiety meds, hydroxyzine given. Wants Gabapentin at bedtime. Endorses movement, denies any contraction, leaking fluid or vaginal bleeding. Unable to do monitoring, pt wants to rest and wants to do it later. SCD in room, pt refused to wear. BP 130/72 Pulse 97 Temp 36.5 ??C (97.7 ??F) Resp 16 LMP 04/16/2021 (Approximate) SpO2 98% Neurologic/Cognitive Assessment Within Defined Limits except for: Neurologic/Cognitive Assessment: Mood/Behavior: Anxious and flat affect HEENT Within Defined Limits Cardiac Within Defined Limits Respiratory Within defined limits Neurovascular Within Defined Limits Gastrointestinal Within Defined Limits Genitourinary Within Defined Limits Reproductive Reproductive Musculoskeletal Within Defined Limits Integumentary Within Defined Limits No annotated images are attached to the encounter. Psychosocial Assessment Within Defined Limits except for: Psychosocial Assessment: Observed Patient Behaviors: Flat affect Family Behavior: not present Nursing Assessment - Savana Pete RN - 11/28/2021 9:57 AM CDT Nursing OB Assessment Head to Toe Head to Toe Shift Summary Pt is 32w2d. Admitted for medical detox. Her biggest concern today was that she swallowed her subutex last night (instead of taking sublingual) and that she will have withdrawal repercussions from that. RN offered hydroxyzine but pt declined. She expressed concern that she was being forced out of the hospital; RN let her know that we want her to stay here until she is comfortable discharging. She wasopen to vitals being measured and is open to FHR monitoring later today. Her face appeared moist with sweat and her feet were fidgeting but she was calm overall and cooperative with plan of care. Savana Pete RN, 11/28/2021 10:04 AM Neurologic/Cognitive Within Defined Limits HEENT Within Defined Limits Cardiac Within Defined Limits Respiratory Within defined limits Neurovascular Within Defined Limits Gastrointestinal Abdominal appearance: Comments: No BM during admission (~48 hours); pt not concerned and declined meds Genitourinary Within Defined Limits Voiding: Voiding without difficulty Reproductive Perineum Assessment: Within Defined Limits Breast Assessment: Within Defined Limits Nipples Assessment: Within Definied Limits Musculoskeletal Within Defined Limits Integumentary Skin Assessment Color/Characteristics - shiny Moisture - diaphoretic No annotated images are attached to the encounter. Psychosocial Within Defined Limits Psychosocial Assessment: Observed Patient Behaviors: Quiet/withdrawn and pleasant Verbalized Emotional State: Anxiety Family Behavior: not present Nursing Assessment - Savana Mcdonald RN - 11/27/2021 11:41 PM CDT Nursing OB Assessment Head to Toe Head to Toe Shift Summary Pt withdrawn, making needs known and requesting medication as needed. Pt did swallow subutex insteadof MD ANDREAS notified and pharmacist states no additional doses can be given. Pt has been intermittently sleeping, though has been restless in bed, reports back pain -offered heat/ice/pillows-declines. states gabapentin helpful. Pt verbally agreed to EFM this am but is now refusing. Neurologic/Cognitive Within Defined Limits HEENT Within Defined Limits Cardiac Within Defined Limits Respiratory Within defined limits Neurovascular Within Defined Limits Gastrointestinal Within Defined Limits Genitourinary Within Defined Limits Reproductive Reproductive Musculoskeletal Within Defined Limits Integumentary Within Defined Limits No annotated images are attached to the encounter. Psychosocial Assessment Within Defined Limits except for: Psychosocial Assessment: Observed Patient Behaviors: Flat affect, restless and quiet/withdrawn Verbalized Emotional State: Acceptance Addiction Medicine Consult - Nikki Schulz APRN, MIK - 11/27/2021 9:55 AM CDT ADDICTION MEDICINE PROVIDER CONSULT Anjali Hoang : 1990 Sex: female DISCLOSURE OF THIS MATERIAL IS PROHIBITED BY LAW. Do not copy this information into the medical record. REASON FOR CONSULT: I was asked to see Anjali Hoang by Neha Hodges regarding Induction onto buprenorphine. Addiction Medicine Problem List: Opioid use disorder, severe- Return to the use of fentanyl the last 2 weeks , 32 weeks Hx Mood disorders including MDD,/EVAN, ADHD Recommendations: Continue induction onto buprenorphine. Last COWS score of 10 indicates it is safe to start full induction. To induct the patient onto buprenorphine: Give 2mg /0.5mg buprenorphine-naloxone sublingual tablet x one when clinical opioid withdrawal scoreis 8 or more Make sure that precipitated withdrawal does not occur by monitoring for sudden worsening opioid withdrawal symptoms over 30 minutes (stomach cramps, nausea, muscle aches, yawning, stuffy nose) If opioid withdrawal remains the same or even improves slightly, give additional total 6 mg buprenorphine-naloxone sublingual (three 2mg/0.5 mg tablets) Prior to discharge can give a full 8mg of buprenophine. Hold for sedation While inpatient, medications for symptom management can include: On the first 1-2 days of induction onto buprenorphine, can continue these prn's Clonidine 0.1mg q4hr prn withdrawal symptoms, hold for systolic bp <100, pulse <65 Gabapentin 400mg-600mg q6 hr prn Consider olanzapine 5mg IV or 10mg PO q8hr prn Acetaminophen prn immodium for loose stools Antiemetics for nausea Bridge script of subutex at previously stable dose 8 BID and 2mg HS x 7 days sent to discharge pharmacy. Patient should follow up with Dr. Carroll for ongoing management. 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 Managed by Dr. Carroll previously on stable dose of buprenorphine mono product dose of 18mg. Last prescription written for two weeks on 10/16/2021. Also has short rx for 2mg buprenorphine on 11/10/2021 UDS positive for amphetamines and methamphetamines, fentanyl, oxycodone, and 6 acetyl-morphine consistent with heroin. HPI: Patient is a 31 y.o. female admitted on 11/26/2021 for medically supervised induction onto buprenorphine. Patient brought [place] [facility] yesterday and admitted to OB unit for supervised induction onto buprenorphine. 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 She has tried initiation of subutex at home and had precipitated wi thdrawals and returned to use of fentanyl. She is concerned about having precipitated withdrawals again and has hx of withdrawal seizure in the setting of benzodiazapine withdrawals. She reports using fentanyl, smoked, with last use 03/27/22 evening/night. On day of admission this writing spoke with OB team about options for induction onto buprenorphine and it was decided to start with a micro induction with 0.5mg buprenoprhine every 2hours x 4 and then 1mg buprenorphine every 2hour x 4 and then 2mgbuprenoprhine every 2 hours x 4. During this micro induction her COWS score has increased to 8 and 11 per nursing assessment. She has thus far had total of 6mg buprenorphine over the last 8 hours thus recommend starting standard initiation of buprenorphine. Patient received several PRN medications for agitation related to withdrawals this morning and declined to discuss full hx. She was arousable to voice but resting in bed with eyes closed DSM-5 criteria for substance use disorder: Meets at least 2 of the 11 criteria in the past 12 monthsincluding but not limited to Continuing to use substance despite consequences Unable to carry out major obligations due to use Recurrent use of substance in physically hazardous situations Continued use despite personal problems exacerbated substance use Tolerance Withdrawal Using greater amounts or longer than intended Desire or unsuccessful efforts to cut down use Time spent on activities related to use Reduction of activities due to substance use Use despite acknowledgment of physical or psychological difficulties from using substance Craving or a strong desire to use substance Substance-related Medications: Current: withdrawal management medications of gabapentin, hydroxyzine, clonidine, zofran Previous: subutex 18mg Review of systems: (1 = problem pertinent; 2-9 = extended; 10 or more = complete) Unable to obtain review of systems information from family/other source and the patient condition: mental status change. Medical/Surgical History: No past medical history on file. No past surgical history on file. Family History: No family history on file. Family history of seizures: unsure Family history of substance use disorders unknown COWS Resting Pulse: 1 pt: 81-100 Sweatin pts: flushed/observable moistness on face Restlessness: 0 pts: able to sit still Pupils: 2 pts: Moderately Dilated, Aches/pains: 1 pts: Mild diffuse discomfort Runny Nose/Tearin pts: Not Present GI upset last 1/2 hr: 0 pts: No GI symptoms Tremor Outstretched hands: 1 pts: Tremor can be felt, not observed Yawning (Observed): 0 pts: No Yawning Anxiety/Irritability: 1 pts: Patient reports increasing irritability or anxiousness Gooseflesh Skin: 0 pts: None, skin is smooth Total Score: 8 Mild Withdrawal Physical Exam: BP 111/57 Pulse 78 Comment: manual Temp 36.7 ??C (98.1 ??F) Resp 18 LMP 04/16/2021 (Approximate) SpO2 95% There is no height or weight on file to calculate BMI. Physical Exam Constitutional: General: She is sleeping. Appearance: Normal appearance. HENT: Head: Normocephalic. Eyes: Conjunctiva/sclera: Conjunctivae normal. Right eye: Right conjunctiva is not injected. Left eye: Left conjunctiva is not injected. Comments: Pupils moderately dilated Pulmonary: Effort: Pulmonary effort is normal. Abdominal: Comments: Visibly Skin: General: Skin is moist. Neurological: Mental Status: She is oriented to person, place, and time. Psychiatric: Mood and Affect: Mood normal. Speech: Speech normal. Behavior: Behavior normal. Thought Content: Thought content normal. Labs: I have reviewed the admission and today's laboratory results in the EPIC record. CMP Lab Results Component Value Date/Time NA 138 11/26/2021 1101 K 3.4 (L) 11/26/2021 1101 CHLORIDE 105 11/26/2021 1101 CO2 21 (L) 11/26/2021 1101 GLU 135 (H) 11/26/2021 1101 UN 8 11/26/2021 1101 CR 0.53 11/26/2021 1130 CA 8.9 11/26/2021 1101 ALT 25 11/26/2021 1130 AST 25 11/26/2021 1130 Urine Drug Screen Lab Results Component Value Date/Time ACETUR NEG 11/26/2021 1400 AMPHETAMINE POS (A) 11/26/2021 1400 BARBITURATE NEG 11/26/2021 1400 BENZUR NEG 11/26/2021 1400 COCAINEUR NEG 11/26/2021 1400 COMMENTUR 11/26/2021 1400 1-Mkhakd-Ackefbgl, Amphetamine, Methamphetamine, Codeine, Fentanyl, Norfentanyl, Morphine, Tramadol, and Tramadol metabolite present. LSDUR NEG 11/26/2021 1400 METHUR NEG 11/26/2021 1400 OPIUR POS (A) 11/26/2021 1400 OXYCODUR POS (A) 11/26/2021 1400 PCPUR NEG 11/26/2021 1400 PROPOX NEG 11/26/2021 1400 SALUR NEG 11/26/2021 1400 Other Diagnostic Studies: Primary care physician: No PCP Nikki Schulz APRN, MIK 11/27/2021 09:55 DISCLOSURE OF THIS MATERIAL IS PROHIBITED BY LAW. 42 CFR part 2 prohibits disclosure of these records. This section of the Code of Federal Regulation prohibits you from making disclosure of this information unless disclosure is expressly permitted by the written consent of the person to whom it pertains or has otherwise permitted by 42 CFR, Part 2. A general authorization for the release of medical or other information is NOT sufficient for this purpose. 42 CFR , Part 2 restricts any use of the information to criminally investigate or prosecute any alcohol and/or drug abuse by the client. Nursing Assessment - Dennis Barraza RN - 11/27/2021 8:25 AM CDT Nursing Assessment Head to Toe Head to Toe Assessment Shift Summary 0750 pt sleeping soundly 0810 pt awake and medication given. Pt reports feeling terrible but declines additional medication or interventions at this time. Does NOT want to increase subutex at this time. Knows it is an option. 0830 vistiril and clonidine given early-ok per dr. Mcguire. Pt requesting nausea meds and gabapentinas well (requested from pharmacy). Pt declines monitoring and VS. 0840 pt yelling out and irritable. RN offered pt additional comfort measures (fan, heating pad, hydrotherapy, ice packs etc), declines all at this time. Has beverages at bedside and knows she can ask for comfort measures/food/drinks etc as desired. Pharmacy called to expedite gabapentin. 904 G4 called to room. Pt states I can't do this when RN asked pt to clarify she stated I need to be knocked out. G4 [place] called to come discuss options with pt. Pt currently declining trazadone 1340 pt called out reporting that I am crawling out of my skin. Pt unable to state anything that may help. Pt reluctantly agrees to take the 6mg subutex at this time. Pt agitated and irritable, continues to be restless and report nausea. No longer sweating profusely. Pt continues to decline monitoring and VS (allows manual check of pulse). OB team updated. 1420 pt sleeping 1600 pt has not called out. RN has checked on pt frequently without waking patient. Has call light at bedside and can make needs known. 1845 pt appears to be sleeping soundly. Did not stir when RN opened the door to check on pt. RN did not wake pt at this time. Continue to monitor pt closely and provided medications and interventions as needed. Plan to continue with 8mg subutex this evening. 1930 pt reports she is doing alright continues to endorse withdrawal symptoms but coping ok at this time. Report to Savana CARTER. Neurologic/Cognitive Within Defined Limits HEENT Within Defined Limits Cardiac Within Defined Limits Respiratory Within defined limits Neurovascular Within Defined Limits Gastrointestinal Assessment Within Defined Limits except for: Abdominal appearance: Comments: 32weeks 1 day, reporting some nausea-declines interventions Genitourinary Within Defined Limits Musculoskeletal Within Defined Limits Integumentary Assessment Within Defined Limits except for: Patient Lines/Drains/Airways Status Active LDAs None Psychosocial Within Defined Limits Psychosocial Assessment: Observed Patient Behaviors: Irritable and frustrated Nursing Assessment - Jess King RN - 11/27/2021 12:35 AM CDT Nursing Assessment Head to Toe Head to Toe Assessment Shift Summary 6367 Pt's VSS in room air.Pt is cooperative with assessments and care at this time.Pt reported ongoing irritated.COWS score is 4 at this time.Positive movements,denies LOF,vaginal bleeding. 2357 Given Subutex 0.5 mg per order,called pharmacy to double checked with dose and more instructions before administration of dose. 0150 Given Subutex 0.5 mg and Buspar per order and mar.Pt is agreeable to collect urine sample,sample cup in BR. 0422 Pt called for pain medication and increased signs of withdrawal.Pt had chronic back rates 08/18. 0429 Given tylenol,Gabapentin 200 mg,Vistaril for pain and anxiety,Maalox for GI Upset.Will wait for40 minutes and give clonidine if symptom continue.COWS score is 8.Upon reassessment pt sleeping comfortable.Did not give Clonidine. 0551 Given Subutex 1 mg per new order. 06 Pt declined EFM.Notified to OB Resident at nurse's station. Jess King, RN, 11/27/2021 6:04 AM Neurologic/Cognitive Within Defined Limits HEENT Within Defined Limits Cardiac Within Defined Limits Respiratory Within defined limits Neurovascular Within Defined Limits Gastrointestinal Assessment Within Defined Limits except for: Abdominal appearance: Comments: 32weeks 1 day Genitourinary Within Defined Limits Musculoskeletal Within Defined Limits Integumentary Within Defined Limits Patient Lines/Drains/Airways Status Active LDAs None Psychosocial Within Defined Limits Psychosocial Assessment: Observed Patient Behaviors: Irritable and frustrated Interval Note Provider - Hali Miranda MD - 11/26/2021 11:21 PM CDT Brief progress note Went to assess patient per RN request. Anjali is feeling irritable and that we are doing nothing for her here. Her most bothersome symptom right now is anxiety, most helpful in the past has been has been valium. We reviewed that options foranxiety include vistaril, clonidine, gabapentin. Discussed teratogenic effects of benzodiazepines and highly addictive potential. I also offered to give another 0.5mg subutex at this time. She has chosen to proceed with micro-dosing protocol given concerns for precipitating withdrawal, but made it clear she can choose to switch to regular protocol at any time. She chooses to stick with micro-dosing protocol. She expresses concern for having a seizure given a prior seizure in the setting of withdrawal in 2016. On further discussion these were in the setting of withdrawal from alcohol and benzodiazepines. Reviewed that seizures are a known danger in withdrawing from these substances, but not in withdrawing from opiates. Encouraged her to notify her RN if she is having symptoms concerning for having seizureactivity, as she has been able to predict these in the past. She feels frustrated by poor management of her anxiety while here so far. If I were anywhere else, they would be giving me valium. I informed her that this is false, as starting benzodiazepines are contra-indicated in aside from treating seizures. She states I'm better off going and getting meds off the street. I encouraged her to stay in treatment and work with us on symptom control, but that she is here on her own free will. Patient did agree that ordering her home anxiety meds (buspar) may be helpful. She has not taken this or buproprion or vyvance in the past week. Plan: - will order her home buspar and buproprion; will defer vyvance for further discussion in AM - will continue with current micro-dosing protocol and PRN meds for withdrawal symptoms Hali Miranda MD MSc [employer] PGY-4 11/26/2021, 23:21 Interval Note Provider - Feng Gonzalez MD - 11/26/2021 6:48 PM CDT Brief Progress Note Patient previously on Subutex 8 mg AM, 8 mg PM, and 2 mg qHS. She has not been taking this for about2.5 weeks and wants to restart. During this time she has been using. Her last use was this morning around 0300. She has previously had severe precipitated withdrawal while starting Subutex therapy and hopes to avoid this. Spoke to addiction medicine Nikki Schulz, MSN, E/M ENGINEER about how to start treatment in light ofthe above and she recommends a micro-dose induction protocol, to begin before patient has symptoms of withdrawal, with goal of avoiding withdrawal symptoms. We discussed the micro-dose induction protocol with Anjali. Anjali does not want to start the protocol until she starts to have withdrawal symptoms. She is very concerned about going into precipitated withdrawal. She prefers to start the protocol when she begins to have withdrawal symptoms, and will let us know when these symptoms begin. We will follow the below protocol, with plan to have a formal addiction medicine consult tomorrow. 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 Subutex micro-dose protocol: - Start with 0.5 mg Subutex (quarter of 2 mg tab) SL every 2 hours x 4 - Then 1 mg Subutex (half of a 2 mg tab) SL every 2 hours x 4 - Then 2 mg Subutex (full tab) SL every 2 hours x 4 - Check COWS with each administration (every 2 hours). If at any point COWS is 8 or greater can switch over to the standard [facility] [place]ut[place] dosing orderset - 2 mg Subutex SL - Make sure that precipitate withdrawal does not occur by monitoring for sudden worsening opioid withdrawal symptoms over 30 minutes (stomach cramps, nausea, muscle aches, yawning, stuffy nose) - If opioid withdrawal remains the same or even improves slightly, take additional 6 mg Subutex tablets SL - The next day start total 8 mg - 12 mg Subutex daily in the AM - If patient begins to have severe precipitated withdrawal symptoms Subutex dosing can be increased The following adjuvant medications will be available as well for withdrawal symptoms: - Clonidine 0.1 mg PO q6h PRN for COWS score >5; Hold if BP <90/60 mmHg or HR <60 bpm - - Acetaminophen 650mg PO q4h PRN for Mild pain (use first); Max 4g daily - Loperamide 2mg PO QID PRN for loose stool, Max 16mg in 24 h period - Hydroxyzine 50 mg PO QID PRN for anxiety - Ondansetron 4 mg PO/ODT q6h PRN for nausea and vomiting - Gabapentin 200 mg PO TID PRN for anxiety, pain' - Trazadone 50 mg PO QHS PRN for insomnia - Melatonin 3 mg PO QHS PRN for insomnia Jose Gonzalez MD MPH [employer] PGY-4 11/26/2021 19:31 Nursing Assessment - Irma Mayer RN - 11/26/2021 3:24 PM CDT Nursing OB Assessment Head to Toe Head to Toe Shift Summary Shift Summary Neurologic/Cognitive Within Defined Limits HEENT Within Defined Limits Cardiac Within Defined Limits Respiratory Within defined limits Neurovascular Within Defined Limits Gastrointestinal Within Defined Limits Genitourinary Within Defined Limits Reproductive Reproductive Musculoskeletal Within Defined Limits Integumentary Within Defined Limits No annotated images are attached to the encounter. Psychosocial Within Defined Limits documented in this encounter Plan of Treatment Scheduled Orders Name Type Priority Associated Diagnoses Order S chedule OBTU ULTRASOUND OR OBTU Ultrasound Routine Opiate use Expected: WELLBEING Antepartum 12/15/2021, ASSESSMENT REQUEST complication of s: 09/30/2022 documented as of this encounter Procedures Procedure Name Priority Date/Time Associated Comments Diagnosis POC GLUCOSE Routine 11/30/2021 11:44 Results for this AM CDT procedure are i n the results section. POC GLUCOSE Routine 11/30/2021 6:26 AM Results f or this CDT procedure are i n the results section. PC GLUCOSE CHALLENGE Routine 11/29/2021 9:32 PM R esults for this TEST CDT procedure are i n the results section. POC GLUCOSE Routine 11/29/2021 9:16 PM Results f or this CDT procedure are i n the results section. CARE EVERYWHERE 11/27/2021 1:54 PM Result s for this AUTHORIZATION CDT procedure are in the results section. PC PROTEIN TOTAL Routine 11/26/2021 2:00 PM Resul ts for this CDT procedure are i n the results section. URINE DRUG SCREEN Routine 11/26/2021 2:00 PM Resu lts for this CDT procedure are i n the results section. PC HIV-1 AG W/HIV-1 & STAT 11/26/2021 11:30 Re sults for this HIV-2 AB AM CDT procedure are i n the results section. TC LAB BLOOD DRAW BY STAT 11/26/2021 11:30 Res ults for this VENIPUNCTURE AM CDT procedure are i n the results section. PC LAB HEPATITIS C PCR Routine 11/26/2021 11:30 R esults for this AM CDT procedure are i n the results section. HEPATITIS B SURFACE STAT 11/26/2021 11:30 Resu lts for this ANTIGEN AM CDT procedure are i n the results section. HEPATITIS B SURFACE Routine 11/26/2021 11:30 Resu lts for this ANTIBODY AM CDT procedure are i n the results section. CREATININE, SERUM Routine 11/26/2021 11:30 Result s for this AM CDT procedure are i n the results section. PC LAB CBC/PLT STAT 11/26/2021 11:30 Results f or this AM CDT procedure are i n the results section. AST (SGOT) Routine 11/26/2021 11:30 Results for this AM CDT procedure are i n the results section. PC ANTIBODY Routine 11/26/2021 11:30 Results for this SCREEN,RBC,EACH SERUM AM CDT proced ure are in TECHNIQUE the results section. ALT (SGPT) Routine 11/26/2021 11:30 Results for this AM CDT procedure are i n the results section. PC LAB RH TYPE GEL Routine 11/26/2021 11:30 Resul ts for this AM CDT procedure are i n the results section. PC LAB WET PREP Routine 11/26/2021 11:21 Results for this AM CDT procedure are i n the results section. PC NEISSERIA GONORRHEA Routine 11/26/2021 11:01 R esults for this AMPLIFIED PROBE AM CDT procedure ar e in TECHNIQUE the results section. PC LAB TRICHOMONAS Routine 11/26/2021 11:01 Resul ts for this VAGINALIS BY AMPLIFIES AM CDT proce dure are in DETECTION, GENITAL the resul ts SPECIMEN section. PANEL BASIC METABOLIC Routine 11/26/2021 11:01 Re sults for this (BMP) AM CDT procedure are i n the results section. PC LAB CERVICAL Routine 11/26/2021 11:01 Results for this CULTURE- B STREP AM CDT procedure a re in the results section. documented in this encounter Results (ABNORMAL) POC GLUCOSE (11/30/2021 11:44 AM CDT) P athologist Signature POC Glucose 101 (H) 70 - 100 [facility] mg/dL CAMPUS - POINT OF CARE Specimen (Source) Anatomical Collection Method Collection Time Re ceived Time Location / / Volume Laterality Blood 11/30/2021 11:44 AM CDT Neha Hodges MD LABORATORY Performing Organization Address City/State/ZIP Code Phon e Number [facility] - POINT OF CARE [address] [place] [address] POC GLUCOSE (11/30/2021 6:26 AM CDT) athologist Signature POC Glucose 97 70 - 100 [facility] mg/dL CAMPUS - POINT OF CARE Specimen (Source) Anatomical Collection Method Collection Time Re ceived Time Location / / Volume Laterality Blood 11/30/2021 6:26 AM CDT Neha Hodges MD LABORATORY Performing Organization Address City/[facility]/ZIP Code Phon e Number [facility] POINT OF [address] [address] (ABNORMAL) GLUCOSE CHALLENGE-1 HR (11/29/2021 9:32 PM CDT) athologist Signature GCT 1HR 203 (H) <=134 mg/dL [facility] Specimen Anatomical Collection Method Collection Time Receive d Time (Source) Location / / Volume Laterality Blood 11/29/2021 9:32 PM 2 CDT 10:04 PM CDT Narrative [facility] - 11/29/2021 10:28 PM CDT Was the glucose drink given in clinic? If so please put the time the drink was given in the question below.->No will be given inpatient Neha Hodges MD LABORATORY Performing Organization Address City/[facility]/ZIP Code Phon e Number [facility] [place] [address] (ABNORMAL) POC GLUCOSE (11/29/2021 9:16 PM CDT) athologist Signature POC Glucose 188 (H) 70 - 100 [facility] mg/dL CAMPUS - POINT OF CARE Specimen (Source) Anatomical Collection Method Collection Time Re ceived Time Location / / Volume Laterality Blood 11/29/2021 9:16 PM CDT Neha Hodges MD LABORATORY Performing Organization Address City/[facility]/ZIP Code Phon e Number [facility] POINT OF [address] [address] CARE EVERYWHERE AUTHORIZATION (11/27/2021 1:54 PM CDT) Narrative This result has an attachment that is no t available. Him Provider SCANNED CONSENTS (ABNORMAL) URINE DRUG SCREEN (11/26/2021 2:00 PM CDT) [facility] gist Method Time Signature Acetaminophen Ur NEG <=10 [facility] mcg/mL Amphetamine Ur POS (A) <=500 [facility] ng/mL Comment: Urine Amphetamine and Methamphetamine pr esent by Mass Spectrometry. Corrected from pending ng/mL [NA] on 18:50:44 CDT by Jarred Alex. Barbiturate Ur NEG <=200 ng/mL [facility] Benzodiazipine NEG <=100 ng/mL [facility] Buprenorphine Ur NEG <=5 ng/mL [facility] Cocaine Metab Ur NEG <=300 ng/mL [facility] Fentanyl, Urine POS (A) <=4 ng/mL [facility] LSD Ur NEG <=500 pg/mL [facility] Comment: Corrected from pending pg/mL [N A] on 11/26/21 18:50:44 CDT by Jarred Alex. Methadone Ur NEG <=300 ng/mL [facility] Opiate Ur POS (A) <=300 ng/mL [facility] Oxycodone Ur POS (A) <=100 ng/mL [facility] PCP Urine NEG <=25 ng/mL [facility] Propox Ur NEG <=300 ng/mL [facility] Salicylate Ur NEG <=10 mg/dL [facility] Creat Urine 254 >=20 mg/dL [facility] Mass Spectrometry Urine 3-[id number], Amphetami ne, Methamphetamine, Codeine, Fentanyl, Norfentanyl, Morphine, Tramadol, [facility] and Tramadol metabolite present. Specimen Anatomical Collection Method Collection Time Receive d Time (Source) Location / / Volume Laterality Urine 11/26/2021 2:00 PM 2 2:46 CDT PM CDT Neha Hodges MD LABORATORY Performing Organization Address City/State/ZIP Code Phon e Number [facility] [place], [place] [id number] [place] [address] (ABNORMAL) PROTEIN TO CREAT RATIO,URINE (11/26/2021 2:00 PM CDT) athologist Signature TPU 32 (H) 0 - 11 [facility] mg/dL Creat Urine 273 (H) 30 - 125 [facility] mg/dL Protein to 0.12 (H) 0.00 - [facility] Creat Ratio, 0.10 mg/mg Ur Specimen Anatomical Collection Method Collection Time Receive d Time (Source) Location / / Volume Laterality Urine 11/26/2021 2:00 PM 8:43 CDT AM CDT Neha Hodges MD LABORATORY Performing Organization Address City/[facility]/ZIP Code Phon e Number [facility] [place] [address] HEPATITIS B SURFACE ANTIBODY (11/26/2021 11:30 AM CDT) athologist Signature HBV Surface Reactive [facility] [place] Comment: Reactive implies immunity. Specimen Anatomical Collection Method Collection Time Receive d Time (Source) Location / / Volume Laterality Blood 11/26/2021 11:30 11/26/2021 AM CDT 12:09 PM CDT Neha Hodges MD LABORATORY Performing Organization Address [facility]/ZIP Code Phon e Number [facility] [place] [address] ALT (SGPT) (11/26/2021 11:30 AM CDT) athologist Signature ALT (SGPT) 25 <=33 IU/L [facility] Specimen Anatomical Collection Method Collection Time Receive d Time (Source) Location / / Volume Laterality Blood 11/26/2021 11:30 11/26/2021 AM CDT 12:10 PM CDT Neha Hodges MD LABORATORY Performing Organization Address City/[facility]/ZIP Code Phon e Number [facility] [place] [address] AST (SGOT) (11/26/2021 11:30 AM CDT) athologist Signature AST(SGOT) 25 5 - 40 IU/L [facility] Specimen Anatomical Collection Method Collection Time Receive d Time (Source) Location / / Volume Laterality Blood 11/26/2021 11:30 11/26/2021 AM CDT 12:10 PM CDT Neha Hodges MD LABORATORY Performing Organization Address City/[facility]/ZIP Code Phon e Number [facility] [place] [address] CREATININE, SERUM (11/26/2021 11:30 AM CDT) athologist Signature Creatinine 0.53 0.50 - 1.00 [facility] mg/dL eGFR, High >120 >=60 [facility] ml/min/1.73m 2 Comment: Calculated using CKD-EPI equati on eGFR, Low >120 >=60 ml/min/1.73m2 [facility] Comment: Calculated using CKD-EPI equati on Specimen Anatomical Collection Method Collection Time Receive d Time (Source) Location / / Volume Laterality Blood 11/26/2021 11:30 11/26/2021 AM CDT 12:10 PM CDT Neha Hodges MD LABORATORY Performing Organization Address City/[facility]/ZIP Code Phon e Number [facility] [place] [address] HEPATITIS B SURFACE ANTIGEN (11/26/2021 11:30 AM CDT) [facility] Method Time Signature HBV Surface Nonreactive Nonreactive [facility] Ag Specimen Anatomical Collection Method Collection Time Receive d Time (Source) Location / / Volume Laterality Blood 11/26/2021 11:30 11/26/2021 AM CDT 12:24 PM CDT Neha Hodges MD LABORATORY Performing Organization Address City/[facility]/ZIP Code Phon e Number [facility] [place] [address] HEPATITIS C PCR (11/26/2021 11:30 AM CDT) athologist Signature Hep C PCR Not Detected [facility] Comment: Assay methodology is FDA approv ed RT-PCR nucleic acid amplification using the Carine MARV 6800 HCV Test. Hep C PCR Qnt <15 IU/mL [facility] Comment: Linear range: 15 - 100,000,000 IU/mL Hep C PCR Log <1.18 [facility] Specimen Anatomical Collection Method Collection Time Receive d Time (Source) Location / / Volume Laterality Serum 11/26/2021 11:30 11/27/2021 7:33 AM CDT AM CDT Neha Hodges MD LABORATORY Performing Organization Address City/State/ZIP Code Phon e Number [facility] [place] [address] HIV COMBO (11/26/2021 11:30 AM CDT) Patholo gist Method Time Signature HIV Nonreactive Nonreactive [facility] Antigen-Antib alexa Comment: Performance characteristics hav e not been established with this test on patients less than 2 years of age. Specimen Anatomical Collection Method Collection Time Receive d Time (Source) Location / / Volume Laterality Blood 11/26/2021 11:30 11/26/2021 AM CDT 12:08 PM CDT Neha Hodges MD LABORATORY Performing Organization Address City/[facility]/ZIP Code Phon e Number [facility] [place] [address] RPR SYPHILIS SCREEN (11/26/2021 11:30 AM CDT) Analysis Performed At Patho logist Time Signature RPR Screen Non-Reactive Non-Reacti [facility] ve RPR Titer Not Reflexed [facility] Specimen Anatomical Collection Method Collection Time Receive d Time (Source) Location / / Volume Laterality Blood 11/26/2021 11:30 11/26/2021 AM CDT 12:24 PM CDT Neha Hodges MD LABORATORY Performing Organization Address City/[facility] Code Phon e Number [facility] [place] [address] (ABNORMAL) CBC WITH PLATELET (11/26/2021 11:30 AM CDT) P athologist Signature WBC 9.99 4.00 - [facility] 10.00 k/cmm RBC 3.31 (L) 3.90 - 5.20 [facility] m/cmm Hgb 9.8 (L) 11.5 - 15.7 [facility] g/dL Hematocrit 29.4 (L) 34.0 - 45.0 [facility] % MCV 88.8 80.0 - [facility] 100.0 fL MCH 29.6 25.0 - 32.0 [facility] pg MCHC 33.3 31.0 - 36.0 [facility] g/dL RDW 12.9 11.5 - 14.5 [facility] % Plt 249 150 - 400 [facility] k/cmm MPV 10.4 6.5 - 12.5 [facility] fL Specimen Anatomical Collection Method Collection Time Receive d Time (Source) Location / / Volume Laterality Blood 11/26/2021 11:30 11/26/2021 AM CDT 12:07 PM CDT Neha Hodges MD LABORATORY Performing Organization Address City/[facility]/ZIP Code Phon e Number [facility] [place] [address] ANTIBODY SCREEN (11/26/2021 11:30 AM CDT) P athologist Signature Florencia Screen Negative [facility] Specimen Anatomical Collection Method Collection Time Receive d Time (Source) Location / / Volume Laterality Blood 11/26/2021 11:30 11/26/2021 AM CDT 12:05 PM CDT Neha Hodges MD LAB TRANSFUSION SERVICES Performing Organization Address [facility]/ZIP Code Phon e Number [facility] [place] [address] BLOOD TYPING-ABO/RH (11/26/2021 11:30 AM CDT) athologist Signature ABORHG B POS [facility] Specimen Anatomical Collection Method Collection Time Receive d Time (Source) Location / / Volume Laterality Blood 11/26/2021 11:30 11/26/2021 AM CDT 12:05 PM CDT Neha Hodges MD LAB TRANSFUSION SERVICES Performing Organization Address City/[facility]/ZIP Code Phon e Number [facility] [place] [address] (ABNORMAL) WET PREP (11/26/2021 11:21 AM CDT) [facility] Method Time Signature Epithelial Present [facility] Cells WP WBC WP Present Absent [facility] Trichomonas WP Absent Absent [facility] Yeast WP Present (A) Absent [facility] Clue Cells WP Absent [facility] Wet Prep [facility] LAB Performed At Specimen Anatomical Collection Method Collection Time Receive d Time (Source) Location / / Volume Laterality Vaginal Spec 11/26/2021 11:21 11/26/2021 AM CDT 12:59 PM CDT Neha Hodges MD LABORATORY Performing Organization Address City/State/ZIP Code Phon e Number [facility] [place] [address] (ABNORMAL) PANEL BASIC METABOLIC (BMP) (11/26/2021 11:01 AM CDT) P athologist Signature Sodium 138 135 - 148 [facility] mEq/L Potassium 3.4 (L) 3.5 - 5.3 [facility] mEq/L Chloride 105 92 - 108 [facility] mEq/L CO2 21 (L) 22 - 30 [facility] mEq/L AnGap 12 8 - 16 [facility] mEq/L Glucose 135 (H) 70 - 100 [facility] mg/dL BUN 8 6 - 20 [facility] mg/dL Creatinine 0.53 0.50 - 1.00 [facility] mg/dL Calcium 8.9 8.6 - 10.0 [facility] mg/dL eGFR, High >120 >=60 [facility] ml/min/1.73 m2 Comment: Calculated using CKD-EPI equati on eGFR, Low >120 >=60 ml/min/1.73m2 [facility] Comment: Calculated using CKD-EPI equati on Specimen Anatomical Collection Method Collection Time Receive d Time (Source) Location / / Volume Laterality Blood 11/26/2021 11:01 11/26/2021 AM CDT 12:10 PM CDT Neha Hodges MD LABORATORY Performing Organization Address City/State/ZIP Code Phon e Number [facility] [place] [address] TRICHOMONAS VAGINALIS BY AMPLIFIED DETECTION-GENITAL SPECIMEN (11/26/2021 11:01 AM CDT) Patholo gist Method Time Signature Trichomonas Negative Negative [facility] Vaginalis Amp-Genital Comment: Test performed by gas system operator mediated amplification and is FDA approved for genital and urine specimens. ??The U.S. Food and Drug Administration has not cleared or approved the use of this assay for urine collections. The test is used for clinical purposes and should not be regarded as i nvestigational or for research. ??This assay has been validated for urines by the [facility]. ??The laboratory is certified under the Clinical Labor atory Improvement Amendments of 1988 as qualified to perform high complexity clinical laborat ory testing. Specimen Anatomical Collection Method Collection Time Receive d Time (Source) Location / / Volume Laterality Genital Spec 11/26/2021 11:01 11/26/2021 AM CDT 12:20 PM CDT Neha Hodges MD LABORATORY Performing Organization Address City/[facility]/ZIP Code Phon e Number [facility] [place] [address] GENITAL CHLAMYDIA AND NEISSERIAE GONORRHOEAE AMPLIFICATION (11/26/2021 11:01 AM CDT) [facility] [employer] Method Time Signature Chlamydia Negative Negative [facility] Amplification - Genital Comment: Test performed by gas system operator mediated amplification and is FDA approved for genital and urine specimens. N. Gonorrhea Amplification - Genital Negative Negative [facility] Comment: Test performed by gas system operator mediated amplification and is FDA approved for genital and urine specimens. Specimen Anatomical Collection Method Collection Time Receive d Time (Source) Location / / Volume Laterality Genital Spec 11/26/2021 11:01 11/26/2021 AM CDT 12:20 PM CDT Neha Hodges MD LABORATORY Performing Organization Address City/[facility]/ZIP Code Phon e Number [facility] [place] [address] (ABNORMAL) BETA STREP CULTURE, VAG/RECT (11/26/2021 11:01 AM CDT) [facility] [employer] Method Time Signature Genital B Group B beta [facility] Strep hemolytic Streptococcus isolated. (POS) Organism GROUP B BETA [facility] HEMOLYTIC STREPTOCOCCUS (POS) Specimen Anatomical Collection Method Collection Time Receive d Time (Source) Location / / Volume Laterality Swab 11/26/2021 11:01 11/26/2021 (Vaginal/Rectal) AM CDT 12:21 PM CD T Narrative [facility] - 11/27/2021 9:43 AM CDT Perform susceptibility testing due to al lergy to penicillin or cephalosporin: No Neha Hodges MD LAB MICROBIOLOGY Performing Organization Address City/[facility]/ZIP Code Phon e Number [facility] [place] [address] documented in this encounter Visit Diagnoses Diagnosis Opiate use - Primary Opioid abuse, unspecified Antepartum complication of Unspecified complication of , a ntepartum Opioid use disorder, moderate, dependenc e () documented in this encounter Administered Medications Inactive Administered Medications - up to 3 most recent administrations Medication Order MAR Action Action Date Dose Rate Site acetaminophen tablet 650 mg Given 11/29/2021 8:13 PM CDT 650 mg 650 mg, Oral, Q4H PRN, Starting on Tue11/26/21 at 1756, Until Tue11/30/21 at 1738, Temp > 38.6 C, Mild Pain (Use First) Given 11/29/2021 1:24 PM CDT 650 mg Given 11/29/2021 7:59 AM CDT 650 mg alum & mag hydroxide-simeth (MAALOX PLUS) Given 11/27/2021 4:29 AM CDT 30 mL suspension 30 mL 30 mL, Oral, TID PRN, Starting on Tue11/26/21 at 1756, Until Tue11/30/21 at 1738, GI Upset bisacodyl (DULCOLAX) suppository 10 mg 10 mg, Rectal, DAILY PRN, Starting on 11/28/21 at 1 139, Until Tue11/30/21 at 1738, Constipation (Use First) buprenorphine (SUBUTEX) sublingual 0.5mg = Given 11/27/2021 3:53 AM CDT 0.5 mg 1/4 of 2 mg tablet. 1 mg, Sublingual, Q2H, 4 doses, First dose on Tue11/26/21 at 2005, Last dose on Tue11/27/21 at 0205 Given 11/27/2021 1:50 AM CDT 0.5 mg Given 11/26/2021 11:57 PM CDT 0.5 mg buprenorphine (SUBUTEX) sublingual table t 1 mg Given 11/27/2021 10:11 AM CDT 1 mg 1 mg, Sublingual, Q2H, 4 doses, First dose on Tue11/27/21 at 0550, Last dose on Tue11/27/21 at 1150 Given 11/27/2021 8:10 AM CDT 1 mg Given 11/27/2021 5:51 AM CDT 1 mg buprenorphine (SUBUTEX) sublingual table t 2 mg Given 11/27/2021 12:17 PM CDT 2 mg 2 mg, Sublingual, Q2H, 4 doses, First dose on Tue11/27/21 at 1350, Last dose on Tue11/27/21 at 1950 buprenorphine (SUBUTEX) sublingual table t 2 mg Given 11/29/2021 9:05 PM CDT 2 mg 2 mg, Sublingual, BEDTIME, First dose on 11/29/21 at 2000, Until Discontinued buprenorphine (SUBUTEX) sublingual table t 6 mg Given 11/27/2021 1:41 PM CDT 6 mg 6 mg, Sublingual, ONE TIME, 1 dose, On Tue11/27/21 at 1250 buprenorphine (SUBUTEX) sublingual table t 8 mg Given 11/27/2021 8:01 PM CDT 8 mg 8 mg, Sublingual, ONE TIME, 1 dose, On Tue11/27/21 at 2000 buprenorphine (SUBUTEX) sublingual table t 8 mg Given 11/28/2021 8:04 AM CDT 8 mg 8 mg, Sublingual, ONE TIME, 1 dose, On 11/28/21 at 0800 buprenorphine (SUBUTEX) sublingual table t 8 mg Given 11/29/2021 8:10 AM CDT 8 mg 8 mg, Sublingual, BID, First dose on Tue11/29/21 at 0800, Until Discontinued buprenorphine (SUBUTEX) sublingual table t 8 mg Given 11/28/2021 7:54 PM CDT 8 mg 8 mg, Sublingual, ONE TIME, 1 dose, On 11/28/21 at 2000 buprenorphine (SUBUTEX) sublingual table t 8 mg Given 11/30/2021 8:43 AM CDT 8 mg 8 mg, Sublingual, BID, First dose (after last modification) on Tue11/29/21 at 1700, Until Discontinued Given 11/29/2021 4:56 PM CDT 8 mg buPROPion (WELLBUTRIN XL) XL tablet 150 mg Given 11/30/2021 8:43 AM CDT 150 mg 150 mg, Oral, DAILY, First dose on Tue11/27/21 at 0800, Until Discontinued Given 11/29/2021 7:58 AM CDT 150 mg Given 11/28/2021 8:04 AM CDT 150 mg busPIRone (BUSPAR) tablet 10 mg Given 11/30/2021 8:43 AM CDT 10 mg 10 mg, Oral, BID, First dose on Tue11/27/21 at 0000, Until Discontinued Given 11/29/2021 8:13 PM CDT 10 mg Given 11/29/2021 7:58 AM CDT 10 mg cloNIDine (CATAPRES) tablet 0.1 mg Given 11/27/2021 8:31 AM CDT 0.1 mg 0.1 mg, Oral, Q6H PRN, Starting on Tue11/26/21 at 1920, Until Tue11/27/21 at 1301, COWS score >5; Hold if BP <90/60 or HR <60 BPM cloNIDine (CATAPRES) tablet 0.1 mg Given 11/30/2021 5:25 AM CDT 0.1 mg 0.1 mg, Oral, Q4H PRN, Starting on Tue11/27/21 at 1305, Until Tue11/30/21 at 1738, COWS score >5; Hold if BP <90/60 or HR <60 BPM Given 11/29/2021 4:30 PM CDT 0.1 mg Given 11/29/2021 12:56 AM CDT 0.1 mg cyclobenzaprine (FLEXERIL) tablet 10 mg Given 11/27/2021 1:19 PM CDT 10 mg 10 mg, Oral, ONE TIME, 1 dose, On Tue11/27/21 at 1305 ferrous sulfate tablet 325 mg 325 mg, Oral, Q48 HOURS, First dose (after last modifi cation) on Tue11/29/21 at 0800, Until Discontinued flucONAZOLE (DIFLUCAN) tablet 100 mg Given 11/26/2021 9:50 PM CDT 100 mg 100 mg, Indication (Select One): Infection - Confirmed, SITE (Select all that apply): Genitourinary, Cultures Ordered? No, Oral, ONE TIME, 1 dose, On Tue11/26/21 at 2045 GABApentin (NEURONTIN) capsule 100 mg Given 11/30/2021 8:43 AM CDT 100 mg 100 mg, Oral, DAILY, First dose on Tue11/29/21 at 1800, Until Discontinued Given 11/29/2021 8:14 PM CDT 100 mg GABApentin (NEURONTIN) capsule 200 mg Given 11/27/2021 8:45 AM CDT 200 mg 200 mg, Oral, TID PRN, Starting on Tue11/26/21 at 1925, Until Tue11/27/21 at 1301, Anxiety, Pain Given 11/27/2021 4:29 AM CDT 200 mg GABApentin (NEURONTIN) capsule 300 mg Given 11/29/2021 10:04 AM CDT 300 mg 300 mg, Oral, TID PRN, Starting on Tue11/27/21 at 1259, Until Tue11/29/21 at 1202, Anxiety, Pain Given 11/29/2021 2:21 AM CDT 300 mg Given 11/28/2021 6:14 PM CDT 300 mg GABApentin (NEURONTIN) capsule 300 mg Given 11/30/2021 1:45 PM CDT 300 mg 300 mg, Oral, TID, First dose (after last modification) on Tue11/29/21 at 2000, Until Discontinued Given 11/29/2021 8:13 PM CDT 300 mg glucose tolerance test (GLUTOL) liquid 5 0 g Given 11/29/2021 8:13 PM CDT 50 g 50 g, Oral, ONE TIME, 1 dose, On Tue11/29/21 at 1200 hydrOXYzine (ATARAX;VISTARIL) tablet 50 mg Given 11/27/2021 8:31 AM CDT 50 mg 50 mg, Oral, QID PRN, Starting on Tue11/26/21 at 1923, Until Tue11/27/21 at 1301, Anxiety Given 11/27/2021 4:29 AM CDT 50 mg Given 11/26/2021 9:52 PM CDT 50 mg hydrOXYzine (ATARAX;VISTARIL) tablet 50 mg Given 11/30/2021 2:18 AM CDT 50 mg 50 mg, Oral, Q4H PRN, Starting on Tue11/27/21 at 1305, Until Tue11/30/21 at 1738, Anxiety Given 11/29/2021 8:13 PM CDT 50 mg Given 11/29/2021 1:24 PM CDT 50 mg insulin ASPART (NovoLOG) FlexPen Insulin Order Mode: Fixed Dose, PRIOR to Breakfast Dos e: 0, PRIOR to Noon meal dose: 0, PRIOR to Evening meal dose: 0, Glucose 130-15 0: 0, Glucose 151-200: 2 units, Glucose 201-250: 4 units, Glucose 251-300: 6 un its, Glucose 301-350: 8 units, Glucose 351-400: 10 units, Glucos e 401-500: 12 units, Glucose GREATER THAN 501: 14 units and call provider, Subcuta neous, TID AC, First dose on Tue11/30/21 at 0730, Until Discontinued insulin ASPART (NovoLOG) FlexPen Glucose 201-250: 0 units, Glucose 251-300: 0 units, Gl ucose 301 - 350: 0 units, Glucose 351 - 400: 6 units, Glucose 401 - 450: 8 units , Glucose 451 - 500: 10 units, Glucose GREATER THAN 501: 12 unit s and call provider, Subcutaneous, BEDTIME MAY REPEAT ONCE, First dose on Tue11/30/21 at 2100, Un til Discontinued loperamide (IMODIUM) capsule 2 mg 2 mg, Oral, QID PRN, Starting on Aniya 11/09 11/30 at 1921, Until Tue11/30/21 at 1738, Other (specify), Loose stool. Max 16 mg in 24H period melatonin tablet 3 mg Given 11/30/2021 2:18 AM CDT 3 mg 3 mg, Oral, BEDTIME PRN, Starting on Aniya 11/26/21 at 1929, Until Tue11/30/21 at 1738, Insomnia Given 11/29/2021 12:56 AM CDT 3 mg Given 11/28/2021 12:52 AM CDT 3 mg nicotine polacrilex (NICORELIEF) gum 2 m g 2 mg, Gum, Q1H PRN, Starting on 11/29/21 at 2138, U ntil Tue11/30/21 at 1738, Nicotine Craving (Use First) ondansetron (ZOFRAN) tablet 4 mg Given 11/29/2021 7:59 AM CDT 4 mg 4 mg, Oral, Q6H PRN, Starting on Aniya 11/26/21 at 1924, Until Tue11/30/21 at 1738, Nausea/Vomiting (Use First), Use if patient able to tolerate oral tablet. May substitute ODT Zofran. Given 11/27/2021 1:18 PM CDT 4 mg Given 11/27/2021 8:34 AM CDT 4 mg sennosides (SENOKOT) tablet 8.6 mg 8.6 mg, Oral, BID PRN, Starting on Sat at 1143, Until Tue11/30/21 at 1738, Constipation (Use Second) traZODone (DESYREL) tablet 50 mg 50 mg, Oral, BEDTIME PRN, Starting on Aniya 11/26/21 at 1 928, Until 11/30/21 at 1738, Insomnia VTE - Low Risk Low Risk Reason: Fully ambulatory, Does not apply, PRO TOCOL, Starting on Aniya 11/26/21 at 1756, Until 11/30/21 at 1738 documented in this encounter Active and Recently Administered Medications Times are shown in CDT. Scheduled Medication Order 11/28/2021 11/29/2021 11/30/2021 buprenorphine (SUBUTEX) sublingual tablet 2 mg 2104 (Given - Provider: Evelia Rodriguez RN) 2 mg, Sublingual, BEDTIME, First dose on 11/29/21 at 2000, Until Discontinued buprenorphine (SUBUTEX) sublingual tablet 8 mg (COMPLE STARR) 803 (Given - Provider: Savana Pete RN) 8 mg, Sublingual, ONE TIME, 1 dose, On 11/28/21 at 0800 buprenorphine (SUBUTEX) sublingual tablet 8 mg (CANCELED) 809 (Given - Provider: Savana Pete RN) 8 mg, Sublingual, BID, First dose on 11/29/21 at 0800, Until Discontinued buprenorphine (SUBUTEX) sublingual tablet 8 mg (COMPLE STARR) 1953 (Given - Provider: Savana Mcdonald RN) 8 mg, Sublingual, ONE TIME, 1 dose, On 11/28/21 at 2000 buprenorphine (SUBUTEX) sublingual tablet 8 mg 1655 (Given - Provider: Evelia Rodriguez RN) 0843 (Given - Provider: Branden Medina) 8 mg, Sublingual, BID, First dose (after last modification) on 11/29/21 at 1700, Until Discontinued buPROPion (WELLBUTRIN XL) XL tablet 150 mg 803 (Given - Provider: Savana Pete RN) 0758 (Given - Provider: Savana Pete RN) 0843 ( Given - Provider: Noelle Gregory RN) 150 mg, Oral, DAILY, First dose on Tue11/27/21 at 0800, Until Di scontinued busPIRone (BUSPAR) tablet 10 mg 08 (Given - Provider : Savana Pete RN)1953 (Given - Provider: Savana Mcdonald RN) 075 (Given - Provider: Savana Pete RN)2012 (Given - Provider: Evelia Rodriguez RN) 0843 (Given - Provider: Noelle Gregory RN) 10 mg, Oral, BID, First dose on Tue11/27/21 at 0000, Until Disco ntinued ferrous sulfate tablet 325 mg 0820 (Not Given (removes Due time) - Provider: Savana Pete RN - Reason: Held per nurse - Comment: pt has not had BM and has discomfort)0821 (Canceled Entry - Provider: Savana Pete RN - Comment: delaying as pt has not had BM) 325 mg, Oral, Q48 HOURS, First dose (aft er last modification) on 11/29/21 at 0800, Until Discontinued GABApentin (NEURONTIN) capsule 100 mg 20 14 (Given - Provider: Evelia Rodriguez RN) 08 (Given - Provider: Branden Medina) 100 mg, Oral, DAILY, First dose on 11/29/21 at 1800, Until Di scontinued GABApentin (NEURONTIN) capsule 200 mg 1100 (Due)1235 (Delayed (keeps Due time) - Provider: Judie Matos RN - Reason: Medication unavailable) 200 mg, Oral, ONE TIME, 1 dose, On 11/30/21 at 1100 GABApentin (NEURONTIN) capsule 300 mg 20 13 (Given - Provider: Evelia Rodriguez RN) 0800 (Due)1345 (Given - Provider: Judie Matos RN) 300 mg, Oral, TID, First dose (after las t modification) on 11/29/21 at 2000, Until Discontinued glucose tolerance test (GLUTOL) liquid 50 g (COMPLETED) 2012 (Given - Provider: Evelia Rodriguez RN) 50 g, Oral, ONE TIME, 1 dose, On 11/29/21 at 1200 insulin ASPART (NovoLOG) FlexPen 0718 (Not Given (removes Due time) - Provider: Judie Matos RN - Reason: Held per order)1227 (Not Given (removes Due time) - Provider: Judie Matos RN - Reason: Held per nurse) Insulin Order Mode: Fixed Dose, PRIOR to Breakfast Dose: 0, PRIOR to Noon meal dose: 0, PRIOR to Evening meal dose: 0, Glucose 130-150: 0, Glucose 151-200: 2 units, Glucose 201-250: 4 units, Glucose 251 -300: 6 units, Glucose 301-350: 8 units, Glucose 351-400: 10 units, Glucose 401- 500: 12 units, Glucose GREATER THAN 501: 14 units and call provider, Subcutaneous, TID AC, First dose on Tue11/30/21 at 0730, Until Discontinued insulin ASPART (NovoLOG) FlexPen Glucose 201-250: 0 units, Glucose 251-30 0: 0 units, Glucose 301 - 350: 0 units, Glucose 351 - 400: 6 units, Glucose 401 - 450: 8 units, Glucose 451 - 500: 10 units, Glucose GREATER THAN 501: 12 units an d call provider, Subcutaneous, BEDTIME M AY REPEAT ONCE, First dose on Tue11/30/21 at 2100, Until Discontinued VTE - Low Risk(Linked Group 1) Low Risk Reason: Fully ambulatory, Does not apply, PROTOCOL, Starting on Tue11/26/21 at 1756, Until Tue11/30/21 at 1738 PRN Medication Order 11/28/2021 11/29/2021 11/30/2021 acetaminophen tablet 650 mg 0048 (Given - Provider: Linda Mcdonald RN)1206 (Given - Provider: Savana Pete RN)1814 (Given - Provider: Jannet Taylor RN) 0056 (Given - Provider: Savana Mcdonald RN)0759 (Given - Provider: Savana Pete RN)1324 (Given - Provider: Savana Pete, RAUL)2013 (Given - Provider: Evelia Rodriguez RN) 0408 (Canceled Entry - Provider: Savana Mcdonald RN) 650 mg, Oral, Q4H PRN, Starting on Tue at 1756, Until Tue11/30/21 at 1738, Temp > 38.6 C, Mild Pain (Use First) alum & mag hydroxide-simeth (MAALOX PLUS) suspension 30 mL 30 mL, Oral, TID PRN, Starting on Tue at 1756, Until 11/30/21 at 1738, GI Upset bisacodyl (DULCOLAX) suppository 10 mg 1212 (Not Given (removes Due time) - Provider: Savana Pete RN - Reason: Patient refused) 10 mg, Rectal, DAILY PRN, Starting on Sa t 11/28/21 at 1139, Until 11/30/21 at 1738, Constipation (Use First) cloNIDine (CATAPRES) tablet 0.1 mg 0056 (Given - Provider: Savana Mcdonald RN)1630 (Given - Provider: Evelia Rodriguez, RN) 0525 (Given - Provider: Savana Mcdonald RN) 0.1 mg, Oral, Q4H PRN, Starting on Tue at 1305, Until 11/30/21 at 1738, COWS score >5; Hold if BP <90/60 or HR <60 BPM GABApentin (NEURONTIN) capsule 300 mg (CANCELED) 0543 (Given - Provider: Savana Mcdonald RN)1206 (Given - Provider: Savana Pete RN)1814 (Given - Provider: Jannet Taylro, RAUL) 0221 (Given - Provider: Savana Mcdonald RN)1004 (Given - Provider: Savana Pete RN) 300 mg, Oral, TID PRN, Starting on Tue at 1259, Until Tue11/29/21 at 1202, Anxiety, Pain hydrOXYzine (ATARAX;VISTARIL) tablet 50 mg 0048 (Given - Provider: Savana Mcdonald RN)0800 (Not Given (removes Due time) - Provider: Savana Pete RN - Reason: Patient refused)1206 (Given - Provider: Savana Pete RN)1615 (Given - Provider: Jannet Taylor RN) 0056 (Given - Provider: Savana Mcdonald RN)0758 (Given - Provider: Savana Pete RN)1324 (Given - Provider: Savana Pete RN)2012 (Given - Provider: Evelia Rodriguez, RAUL) 0218 (Given - Provider: Savana Mcdonald RN)0626 (Canceled Entry - Provider: Savana Mcdonald RN - Comment: pt sleeping) 50 mg, Oral, Q4H PRN, Starting on Tue at 1305, Until Tue11/30/21 at 1738, Anxiety loperamide (IMODIUM) capsule 2 mg 2 mg, Oral, QID PRN, Starting on Aniya 11/09 11/30 at 1921, Until Tue11/30/21 at 1738, Other (specify), Loose stool. Max 16 mg in 24H period melatonin tablet 3 mg 0052 (Given - Provider: Savana Mcdonald RN) 0056 (Given - Provider: Savana Mcdonald RN) 0218 (Given - Provider: Savana Mcdonald RN) 3 mg, Oral, BEDTIME PRN, Starting on Aniya 11/26/21 at 1929, Until Tue11/30/21 at 1738, Insomnia milk of magnesia 400 mg/5 mL suspension 30 mL 30 mL, Oral, DAILY PRN, Starting on Aniya 11/26/21 at 1756, Until Tue11/30/21 at 1738, Other (specify), As Needed for Constipation. Use if senna not effective, or for patient preference nicotine polacrilex (NICORELIEF) gum 2 mg 2 mg, Gum, Q1H PRN, Starting on 11/29 at 2138, Until Tue11/30/21 at 1738, Nicotine Craving (Use First) ondansetron (ZOFRAN) tablet 4 mg 0759 (G iven - Provider: Savana Pete RN) 4 mg, Oral, Q6H PRN, Starting on Aniya 11/09 11/30 at 1924, Until Tue11/30/21 at 1738, Nausea/Vomiting (Use First), Use if patient able to tolerate oral tablet. May substitute ODT Zofran. sennosides (SENOKOT) tablet 8.6 mg 8.6 mg, Oral, BID PRN, Starting on Sat at 1143, Until 11/30/21 at 1738, Constipation (Use Second) traZODone (DESYREL) tablet 50 mg 53 (Due) 50 mg, Oral, BEDTIME PRN, Starting on Th u 11/26/21 at 1928, Until 11/30/21 at 1738, Insomnia Linked Groups Order Group 1: VTE - Low RiskJump to med Low Risk Reason: Fully ambulatory
Souza s not apply, PROTOCOL, Starting on Aniya 11/26/21 at 1756, Until 11/30/21 at 1738 And VTE - Low Risk Communication (CANCELED) ONCE, On Aniya 11/26/21 at 1800, For 1 occu rrence
Low Risk Reason: Fully ambulatory
Patient at low risk for VTE; neither mechanical nor chemical prophylaxis is required documented in this encounter Care Teams Control Electrician Relationship Specialty Start Date End Date Pcp, No PCP - General 01/04/12 [facility] [place] [id number] documented as of this encounter
--- OUTSIDE RECORDS SUMMARY | 2022-01-14 01:41 | XMS_ITS | Encounter Summary ---
:1990 Author Organization [facility] Address [address] [place] [address] Phone Care Team Providers Name Role Phone Pcp, No Primary Care Provider Unavailable Reason for Visit Reason Onset Date Comments Prior Authorization For Medications 03/24/2020 Subo xone Film Encounter Details Date Type Department Care Team Description 03/24/2020 Pharmacy Prior [facility] Kesha, Authorization [address] Lynn Ervin MD [id number] [address] [place], [place] [address] [address] [place] [address] Social History Tobacco Use Types Packs/Day Years Used Date Smoking Tobacco: Never Alcohol Use Standard Drinks/Week Comments No 0 (1 standard drink = 0.6 oz pure alcoho l) 12/01/11 denies Sex Assigned at Date Recorded Not on file COVID-19 Exposure Response Date Recorded In the last month, have you been in contact Unable to assess 03/05/2020 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 documented as of this encounter Progress Notes Hallie Anne - 03/24/2020 1:49 PM CST Prior authorization request: Suboxone Film Per Kourtney, patient picked up the brand Suboxone Film on 03/19/2020 with a co pay of $3. No further action is required. 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
--- OUTSIDE RECORDS SUMMARY | 2022-01-14 01:41 | XMS_ITS | Encounter Summary ---
:1990 Author Organization [facility] Address [address] [place] [address] Phone Care Team Providers Name Role Phone Pcp, No Primary Care Provider Unavailable Encounter Details Date Type Department Care Team Description 08/04/2020 Orders Only [facility] Shawn Austin MD [place] [address] [facility] [address] [place] [address] [place], [place] [address] [phone] Social History Tobacco Use Types Packs/Day Years Used Date Smoking Tobacco: Never Alcohol Use Standard Drinks/Week Comments No 0 (1 standard drink = 0.6 oz pure alcoho l) 12/01/11 denies Sex Assigned at Date Recorded Not on file documented as of this encounter Plan of Treatment Not on filedocumented as of this encounter Visit Diagnoses Not on filedocumented in this encounter Care Teams Mechanical Ordnance Assembler Relationship Specialty Start Date End Date Pcp, No PCP - General 01/04/12 [facility] [place] [address] documented as of this encounter
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
--- OUTSIDE RECORDS SUMMARY | 2022-01-14 01:41 | XMS_ITS | Encounter Summary ---
:1990 Author Organization [facility] Address [address] [place] [address] Phone Care Team Providers Name Role Phone Pcp, No Primary Care Provider Unavailable Encounter Details Date Type Department Care Team Description 08/20/2019 Travel Social History Tobacco Use Types Packs/Day Years Used Date Smoking Tobacco: Never Alcohol Use Standard Drinks/Week Comments No 0 (1 standard drink = 0.6 oz pure alcoho l) 12/01/11 denies Sex Assigned at Date Recorded Not on file COVID-19 Exposure Response Date Recorded In the last month, have you been in contact Unable to assess 08/20/2019 9:35 AM CDT with someone who was confirmed or suspected to have Coronavirus / COVID-19? documented as of this encounter Plan of Treatment Not on filedocumented as of this encounter Visit Diagnoses Not on filedocumented in this encounter Care Teams Commercial Production Editor Relationship Specialty Start Date End Date Pcp, No PCP - General 01/04/12 [facility] [place] [address] documented as of this encounter
--- OUTSIDE RECORDS SUMMARY | 2022-01-14 01:41 | XMS_ITS | Encounter Summary ---
:1990 Author Organization [facility] Address [address] [place] [id number] Phone Care Team Providers Name Role Phone Pcp, No Primary Care Provider Unavailable Encounter Details Date Type Department Care Team Description 09/11/2019 Travel Social History Tobacco Use Types Packs/Day Years Used Date Smoking Tobacco: Never Alcohol Use Standard Drinks/Week Comments No 0 (1 standard drink = 0.6 oz pure alcoho l) 12/01/11 denies Sex Assigned at Date Recorded Not on file COVID-19 Exposure Response Date Recorded In the last month, have you been in contact Unable to assess 09/11/2019 2:02 PM CDT with someone who was confirmed or suspected to have Coronavirus / COVID-19? documented as of this encounter Plan of Treatment Not on filedocumented as of this encounter Visit Diagnoses Not on filedocumented in this encounter Care Teams Engrosser Relationship Specialty Start Date End Date Pcp, No PCP - General 01/04/12 [facility] [place] [address] documented as of this encounter
--- OUTSIDE RECORDS SUMMARY | 2022-01-14 01:41 | XMS_ITS | Encounter Summary ---
:1990 Author Organization [facility] Address [address] [place] [phone] Phone Care Team Providers Name Role Phone Pcp, No Primary Care Provider Unavailable Encounter Details Date Type Department Care Team Description 12/20/2019 Travel Social History Tobacco Use Types Packs/Day Years Used Date Smoking Tobacco: Never Alcohol Use Standard Drinks/Week Comments No 0 (1 standard drink = 0.6 oz pure alcoho l) 12/01/11 denies Sex Assigned at Date Recorded Not on file COVID-19 Exposure Response Date Recorded In the last month, have you been in contact with No / Unsure 12/20/2019 2:29 PM CDT someone who was confirmed or suspected to have Coronavirus / COVID-19? documented as of this encounter Plan of Treatment Not on filedocumented as of this encounter Visit Diagnoses Not on filedocumented in this encounter Care Teams Nuclear Engineering Technician Relationship Specialty Start Date End Date Pcp, No PCP - General 01/04/12 [facility] [place] [address] documented as of this encounter
--- OUTSIDE RECORDS SUMMARY | 2022-01-14 01:41 | XMS_ITS | Encounter Summary ---
:1990 Author Organization [facility] Address [address] [place] [phone] Phone Care Team Providers Name Role Phone Pcp, No Primary Care Provider Unavailable Encounter Details Date Type Department Care Team Description 01/15/2020 Travel Social History Tobacco Use Types Packs/Day Years Used Date Smoking Tobacco: Never Alcohol Use Standard Drinks/Week Comments No 0 (1 standard drink = 0.6 oz pure alcoho l) 12/01/11 denies Sex Assigned at Date Recorded Not on file COVID-19 Exposure Response Date Recorded In the last month, have you been in contact Unable to assess 01/15/2020 1:40 PM CDT with someone who was confirmed or suspected to have Coronavirus / COVID-19? documented as of this encounter Plan of Treatment Not on filedocumented as of this encounter Visit Diagnoses Not on filedocumented in this encounter Care Teams Fire Boss Relationship Specialty Start Date End Date Pcp, No PCP - General 01/04/12 [facility] [place] [address] documented as of this encounter
--- OUTSIDE RECORDS SUMMARY | 2022-01-14 01:41 | XMS_ITS | Encounter Summary ---
:1990 Author Organization [facility] Address [address] [place] [phone] Phone Care Team Providers Name Role Phone Pcp, No Primary Care Provider Unavailable Encounter Details Date Type Department Care Team Description 08/13/2019 Travel Social History Tobacco Use Types Packs/Day [...] on filedocumented in this encounter Care Teams Funeral Car Driver Relationship Specialty Start Date End Date Pcp, No PCP - General 01/04/12 [facility] [place] [address] documented as of this encounter
--- OUTSIDE RECORDS SUMMARY | 2022-01-14 01:41 | XMS_ITS | Encounter Summary ---
:1990 Author Organization [facility] Address [address] [place] [phone] Phone Care Team Providers Name Role Phone Pcp, No Primary Care Provider Unavailable Encounter Details Date Type Department Care Team Description 10/29/2019 Travel Social History Tobacco Use Types Packs/Day Years Used Date Smoking Tobacco: Never Alcohol Use Standard Drinks/Week Comments No 0 (1 standard drink = 0.6 oz pure alcoho l) 12/01/11 denies Sex Assigned at Date Recorded Not on file COVID-19 Exposure Response Date Recorded In the last month, have you been in contact Unable to assess 10/29/2019 12:44 PM CDT with someone who was confirmed or suspected to have Coronavirus / COVID-19? documented as of this encounter Plan of Treatment Not on filedocumented as of this encounter Visit Diagnoses Not on filedocumented in this encounter Care Teams Street Light Lamp Cleaner Relationship Specialty Start Date End Date Pcp, No PCP - General 01/04/12 [facility] [place] [address] documented as of this encounter
--- OUTSIDE RECORDS SUMMARY | 2022-01-14 01:41 | XMS_ITS | Encounter Summary ---
:[address] [facility] Address [address] [place] [phone] Phone Care Team Providers Name Role Phone Pcp, No Primary Care Provider Unavailable Encounter Details Date Type Department Care Team Description 08/24/2019 Travel Social History Tobacco Use Types Packs/Day Years Used Date Smoking Tobacco: Never Alcohol Use Standard Drinks/Week Comments No 0 (1 standard drink = 0.6 oz pure alcoho l) 12/01/11 denies Sex Assigned at Date Recorded Not on file COVID-19 Exposure Response Date Recorded In the last month, have you been in contact with No / Unsure 08/24/2019 4:25 PM CDT someone who was confirmed or suspected to have Coronavirus / COVID-19? documented as of this encounter Plan of Treatment Not on filedocumented as of this encounter Visit Diagnoses Not on filedocumented in this encounter Care Teams Pile Driver Operator Helper Relationship Specialty Start Date End Date Pcp, No PCP - General 01/04/12 [facility] [place] [address] documented as of this encounter
--- OUTSIDE RECORDS SUMMARY | 2022-01-14 01:41 | XMS_ITS | Encounter Summary ---
:1990 Author Organization [facility] Address [address] [place] [address] Phone Care Team Providers Name Role Phone Pcp, No Primary Care Provider Unavailable Encounter Details Date Type Department Care Team Description 03/05/2020 Travel Social History Tobacco Use Types Packs/Day Years Used Date Smoking Tobacco: Never Alcohol Use Standard Drinks/Week Comments No 0 (1 standard drink = 0.6 oz pure alcoho l) 12/01/11 denies Sex Assigned at Date Recorded Not on file COVID-19 Exposure Response Date Recorded In the last month, have you been in contact Unable to assess 03/05/2020 2:47 PM IT SUPPORT SPECIALIST with someone who was confirmed or suspected to have Coronavirus / COVID-19? documented as of this encounter Plan of Treatment Not on filedocumented as of this encounter Visit Diagnoses Not on filedocumented in this encounter Care Teams Clinical Pharmacy Specialist Relationship Specialty Start Date End Date Pcp, No PCP - General 01/04/12 [facility] [place] [address] documented as of this encounter
--- OUTSIDE RECORDS SUMMARY | 2022-01-14 01:41 | XMS_ITS | Clinical Summary ---
:1990 Author Organization [employer] Address [address] [place], [place] [address], [place] [address] Phone Care Team Providers Name Role Phone Pcp, No Primary Care Provider Unavailable Source Comments [employer] is fully rolled out on [employer]. Last update 09/13/08[facility] Allergies Active Allergy Reactions Severity Noted Date Comments Sulfa Antibiotics Unknown 12/02/2011 Medications Be aware that medications may not be up to date as of this document. Always verify current medications with patient. Medication Sig Dispensed Refills Start Date End Date Status sennosides-docusate Take 1-2 tablets 60 tablet 3 11/30/2021 Active sodium (STOOL by mouth twice SOFTENER/LAXATIVE) daily as needed 8.6-50 mg oral tablet for Constipation. hydrOXYzine Take 1-2 tablets 120 tablet 0 11/30/2021 Active (ATARAX;VISTARIL) 25 (25-50 mg) by mg oral tablet mouth every 6 hours as needed for Anxiety. GABApentin Take 1 capsule 120 capsule 2 11/30/2021 A ctive (NEURONTIN) 300 mg (300 mg) by mouth oral capsule twice daily. GABApentin Take 1 tablet 105 tablet 2 11/30/2021 Act nadia (NEURONTIN) 600 mg (600 mg) by mouth oral TABS at bedtime. Active Problems Problem Noted Date Antepartum complication of 11/26/2021 Opioid use disorder, moderate, dependence 08/17/2019 Estimated Date of Delivery Comments Yes 01/21/2022 Based on last menstr ual period of 04/16/2021 (Approximate) Encounters Date Type Specialty Care Team Description 11/26/2021 - Hospital Encounter CARDIOLOGY SPECIALIST Neha Hodges Antepar jose 11/30/2021 MD Jody complication of Maria Del Carmen Bravo MD Anabel 11/26/2021 Emergency EMERGENCY MEDICINE from Last 3 Months Immunizations Name Administration Dates Next Due Tetanus Toxoid, Reduced Diphtheroid Toxoid Acellular 022, 12/02/2011 Pertussis Social History Tobacco Use Types Packs/Day Years Used Date Smoking Tobacco: Never Alcohol Use Standard Drinks/Week Comments No 0 (1 standard drink = 0.6 oz pure alcoho l) 12/01/11 denies Estimated Date of Delivery Comments Yes 01/21/2022 Based on last menstr ual period of 04/16/2021 (Approximate) Sex Assigned at Date Recorded Not on file Last Filed Vital Signs Vital Sign Reading Time Taken Comments Blood Pressure 118/67 11/30/2021 9:41 AM CDT Pulse 77 11/30/2021 9:42 AM CDT Temperature 36.4 ??C (97.5 ??F) 11/30/2021 9:41 AM CDT Respiratory Rate 18 11/30/2021 9:41 AM CDT Oxygen Saturation 98% 11/30/2021 9:42 AM CDT Inhaled Oxygen Concentration - - Weight - - Height - - Body Mass Index - - Plan of Treatment Health Maintenance Due Date Last Done Comments Dental Oral Exam 1989 Dental Prophylaxis 1989 Dental X-Ray: Bitewings 1989 Depression Management 1989 COVID-19 Vaccine (#1) 1989 Periodontal Maintenance 2003 PREVENTATIVE VISIT 2007 HEALTH MAINTENANCE PROTOCOL 2008 INFLUENZA VACCINE 12/10/2021 04/27/2021, 06/17/2018, 05/26/2012, Additional history exists Cervical Cancer Screening 12/21/2021 Age 30-65 TD/TDAP ADULTS 11/30/2031 11/29/2021, 07/10/2020, 07/22/2019, Additional history exists HIV Screening Completed 11/26/2021 HIB Aged Out No longer deena daniels based on patient 's age to complete this topic Procedures Procedure Name Priority Date/Time Associated Comments [...] CDT procedure are in the results section. URINE DRUG SCREEN Routine 11/26/2021 2:00 PM Resu lts for this CDT procedure are i n the results section. PC PROTEIN TOTAL Routine 11/26/2021 2:00 PM Resul ts for this CDT procedure are i n the results section. PC LAB HEPATITIS C PCR Routine 11/26/2021 11:30 R esults for this AM CDT procedure are i n the results section. HEPATITIS B SURFACE Routine 11/26/2021 11:30 Resu lts for this ANTIBODY AM CDT procedure are i n the results section. ALT (SGPT) Routine 11/26/2021 [...] ure are in TECHNIQUE the results section. PC LAB RH TYPE GEL Routine 11/26/2021 11:30 Resul ts for this AM CDT procedure are i n the results section. PC LAB WET PREP Routine 11/26/2021 11:21 Results for this AM CDT procedure are i n the results section. PC LAB TRICHOMONAS Routine 11/26/2021 11:01 Resul ts for this VAGINALIS BY AMPLIFIES AM CDT proce dure are in DETECTION, GENITAL the resul ts SPECIMEN section. PC NEISSERIA GONORRHEA Routine 11/26/2021 11:01 R esults for this AMPLIFIED PROBE AM CDT procedure ar e in TECHNIQUE the results section. PC LAB CERVICAL Routine 11/26/2021 11:01 Results for this CULTURE- B STREP AM CDT procedure a re in the results section. PANEL BASIC METABOLIC Routine 11/26/2021 11:01 Re sults for this (BMP) AM CDT procedure are i n the results section. from Last 3 Months Results (ABNORMAL) POC GLUCOSE (11/30/2021 11:44 AM CDT)Only the most recent of3 results within the time period is included. athologist Signature POC Glucose 101 (H) 70 - 100 [facility] mg/dL CAMPUS - POINT OF CARE Specimen (Source) Anatomical Collection Method Collection Time Re ceived Time Location / / Volume Laterality Blood 11/30/2021 11:44 AM CDT Neha Hodges MD LABORATORY Performing Organization Address City/[facility]/ZIP Code Phon e Number [facility] - POINT OF CARE [address] [place] [id number] (ABNORMAL) GLUCOSE CHALLENGE-1 HR (11/29/2021 9:32 PM CDT) athologist Signature GCT 1HR 203 (H) <=134 mg/dL [facility] Specimen Anatomical Collection Method Collection Time Receive d Time (Source) Location / / Volume Laterality Blood 11/29/2021 9:32 PM 2 CDT 10:04 PM CDT Narrative [facility] - 11/29/2021 10:28 PM CDT Was the glucose drink given in clinic? If so please put the time the drink was given in the question below.->No will be given inpatient Neha Hodges MD LABORATORY Performing Organization Address City/[facility]/ZIP Code Phon e Number [facility] [place] [address] CARE EVERYWHERE AUTHORIZATION (11/27/2021 1:54 PM CDT) Narrative This result has an attachment that is no t available. Him Provider SCANNED CONSENTS (ABNORMAL) PROTEIN TO CREAT RATIO,URINE (11/26/2021 2:00 PM CDT) athologist Signature TPU 32 (H) 0 - 11 [facility] mg/dL Creat Urine 273 (H) 30 - 125 [facility] mg/dL Protein to 0.12 (H) 0.00 - [facility] Creat Ratio, 0.10 mg/mg Ur Specimen Anatomical Collection Method Collection Time Receive d Time (Source) Location / / Volume Laterality Urine 11/26/2021 2:00 PM 8:43 CDT AM CDT Neha Hodges MD LABORATORY Performing Organization Address City/State/ZIP Code Phon e Number [facility] [place] [address] (ABNORMAL) URINE DRUG SCREEN (11/26/2021 2:00 PM CDT) [facility] gist Method Time Signature Acetaminophen Ur NEG <=10 [facility] mcg/mL Amphetamine Ur POS (A) <=500 [facility] ng/mL Comment: Urine Amphetamine and Methamphetamine pr esent by Mass Spectrometry. Corrected from pending ng/mL [NA] on 18:50:44 CDT by Jarred Alex. Barbiturate Ur NEG <=200 ng/mL [facility] Benzodiazipine NEG <=100 ng/mL [facility] Buprenorphine Ur NEG <=5 ng/mL [facility] Cocaine Metab Ur NEG <=300 ng/mL [facility] Fentanyl, Urine POS (A) <=4 ng/mL [facility] LSD Ur NEG <=500 pg/mL [facility] Comment: Corrected from pending pg/mL [N A] on 11/26/21 18:50:44 CDT by Jarred Alex. Methadone Ur NEG <=300 ng/mL [facility] Opiate Ur POS (A) <=300 ng/mL [facility] Oxycodone Ur POS (A) <=100 ng/mL [facility] PCP Urine NEG <=25 ng/mL [facility] Propox Ur NEG <=300 ng/mL [facility] Salicylate Ur NEG <=10 mg/dL [facility] Creat Urine 254 >=20 mg/dL [facility] Mass Spectrometry Urine 2-[id number], Amphetami ne, Methamphetamine, Codeine, Fentanyl, Norfentanyl, Morphine, Tramadol, [facility] and Tramadol metabolite present. Specimen Anatomical Collection Method Collection Time Receive d Time (Source) Location / / Volume Laterality Urine 11/26/2021 2:00 PM 2:46 CDT PM CDT Neha Hodges MD LABORATORY Performing Organization Address City/[facility]/ZIP Code Phon e Number [facility] [place] [address] HIV COMBO (11/26/2021 11:30 AM CDT) Patholo gist Method Time Signature HIV Nonreactive Nonreactive [facility] Antigen-Antib alexa Comment: Performance characteristics hav e not been established with this test on patients less than 2 years of age. Specimen Anatomical Collection Method Collection Time Receive d Time (Source) Location / / Volume Laterality Blood 11/26/2021 11:30 11/26/2021 AM CDT 12:08 PM CDT Neha Hodges MD LABORATORY Performing Organization Address City/[facility]/ZIP Code Phon e Number [facility] [place] [address] RPR SYPHILIS SCREEN (11/26/2021 11:30 AM CDT) Analysis Performed At Patho logist Time Signature RPR Screen Non-Reactive Non-Reacti [facility] ve RPR Titer Not Reflexed [facility] Specimen Anatomical Collection Method Collection Time Receive d Time (Source) Location / / Volume Laterality Blood 11/26/2021 11:30 11/26/2021 AM CDT 12:24 PM CDT Neha Hodges MD LABORATORY Performing Organization Address City/[facility]/ZIP Code Phon e Number [facility] [place] [address] HEPATITIS C PCR (11/26/2021 11:30 AM CDT) P athologist Signature Hep C PCR Not Detected [facility] Comment: Assay methodology is FDA approv ed RT-PCR nucleic acid amplification using the Carine MARV 6800 HCV Test. Hep C PCR Qnt <15 IU/mL [facility] Comment: Linear range: 15 - 100,000,000 IU/mL Hep C PCR Log <1.18 [facility] Specimen Anatomical Collection Method Collection Time Receive d Time (Source) Location / / Volume Laterality Serum 11/26/2021 11:30 11/27/2021 7:33 AM CDT AM CDT Neha Hodges MD LABORATORY Performing Organization Address City/[facility] Code Phon e Number [facility] [place] [address] HEPATITIS B SURFACE ANTIGEN (11/26/2021 11:30 AM CDT) Patholo gist Method Time Signature HBV Surface Nonreactive Nonreactive [facility] Ag Specimen Anatomical Collection Method Collection Time Receive d Time (Source) Location / / Volume Laterality Blood 11/26/2021 11:30 11/26/2021 AM CDT 12:24 PM CDT Neha Hodges MD LABORATORY Performing Organization Address City/[facility] Code Phon e Number [facility] [place] [address] HEPATITIS B SURFACE ANTIBODY (11/26/2021 11:30 AM CDT) P athologist Signature HBV Surface Reactive [facility] [place] Comment: Reactive implies immunity. Specimen Anatomical Collection Method Collection Time Receive d Time (Source) Location / / Volume Laterality Blood 11/26/2021 11:30 11/26/2021 AM CDT 12:09 PM CDT Neha Hodges MD LABORATORY Performing Organization Address [facility] Phon e Number [facility] [place] [address] CREATININE, SERUM (11/26/2021 11:30 AM CDT) P athologist Signature Creatinine 0.53 0.50 - 1.00 [facility] mg/dL eGFR, High >120 >=60 [facility] ml/min/1.73m 2 Comment: Calculated using CKD-EPI equati on eGFR, Low >120 >=60 ml/min/1.73m2 [facility] Comment: Calculated using CKD-EPI equati on Specimen Anatomical Collection Method Collection Time Receive d Time (Source) Location / / Volume Laterality Blood 11/26/2021 11:30 11/26/2021 AM CDT 12:10 PM CDT Neha Hodges MD LABORATORY Performing Organization Address City/State/ZIP Code Phon e Number [facility] [place] [address] (ABNORMAL) CBC WITH PLATELET (11/26/2021 11:30 AM CDT) athologist Signature WBC 9.99 4.00 - [facility] 10.00 k/cmm RBC 3.31 (L) 3.90 - 5.20 [facility] m/cmm Hgb 9.8 (L) 11.5 - 15.7 [facility] g/dL Hematocrit 29.4 (L) 34.0 - 45.0 [facility] % MCV 88.8 80.0 - [facility] 100.0 fL MCH 29.6 25.0 - 32.0 [facility] pg MCHC 33.3 31.0 - 36.0 [facility] g/dL RDW 12.9 11.5 - 14.5 [facility] % Plt 249 150 - 400 [facility] k/cmm MPV 10.4 6.5 - 12.5 [facility] fL Specimen Anatomical Collection Method Collection Time Receive d Time (Source) Location / / Volume Laterality Blood 11/26/2021 11:30 11/26/2021 AM CDT 12:07 PM CDT Neha Hodges MD LABORATORY Performing Organization Address City/State/ZIP Code Phon e Number [facility] [place] [address] AST (SGOT) (11/26/2021 11:30 AM CDT) athologist Signature AST(SGOT) 25 5 - 40 IU/L [facility] Specimen Anatomical Collection Method Collection Time Receive d Time (Source) Location / / Volume Laterality Blood 11/26/2021 11:30 11/26/2021 AM CDT 12:10 PM CDT Neha Hodges MD LABORATORY Performing Organization Address City/State/ZIP Code Phon e Number [facility] [place] [address] ANTIBODY SCREEN (11/26/2021 11:30 AM CDT) athologist Signature Florencia Screen Negative [facility] Specimen Anatomical Collection Method Collection Time Receive d Time (Source) Location / / Volume Laterality Blood 11/26/2021 11:30 11/26/2021 AM CDT 12:05 PM CDT Neha Hodges MD LAB TRANSFUSION SERVICES Performing Organization Address City/[facility]/ZIP Code Phon e Number [facility] [place] [address] ALT (SGPT) (11/26/2021 11:30 AM CDT) athologist Signature ALT (SGPT) 25 <=33 IU/L [facility] Specimen Anatomical Collection Method Collection Time Receive d Time (Source) Location / / Volume Laterality Blood 11/26/2021 11:30 11/26/2021 AM CDT 12:10 PM CDT Neha Hodges MD LABORATORY Performing Organization Address City/[facility]/ZIP Code Phon e Number [facility] [place] [address] BLOOD TYPING-ABO/RH (11/26/2021 11:30 AM CDT) athologist Signature ABORHG B POS [facility] Specimen Anatomical Collection Method Collection Time Receive d Time (Source) Location / / Volume Laterality Blood 11/26/2021 11:30 11/26/2021 AM CDT 12:05 PM CDT Neha Hodges MD LAB TRANSFUSION SERVICES Performing Organization Address City/[facility]/ZIP Code Phon e Number [facility] [place] [address] (ABNORMAL) WET PREP (11/26/2021 11:21 AM CDT) [facility] gist Method Time Signature Epithelial Present [facility] Cells WP WBC WP Present Absent [facility] Trichomonas WP Absent Absent [facility] Yeast WP Present (A) Absent [facility] Clue Cells WP Absent [facility] Wet [facility] Specimen Anatomical Collection Method Collection Time Receive d Time (Source) Location / / Volume Laterality Vaginal Spec 11/26/2021 11:21 11/26/2021 AM CDT 12:59 PM CDT Neha Hodges MD LABORATORY Performing Organization Address City/[facility]/ZIP Code Phon e Number [facility] [place] [address] GENITAL CHLAMYDIA AND NEISSERIAE GONORRHOEAE AMPLIFICATION (11/26/2021 11:01 AM CDT) [facility] Method Time Signature Chlamydia Negative Negative [facility] Amplification - Genital Comment: Test performed by layboy operator mediated amplification and is FDA approved for genital and urine specimens. N. Gonorrhea Amplification - Genital Negative Negative [facility] Comment: Test performed by layboy operator mediated amplification and is FDA approved for genital and urine specimens. Specimen Anatomical Collection Method Collection Time Receive d Time (Source) Location / / Volume Laterality Genital Spec 11/26/2021 11:01 11/26/2021 AM CDT 12:20 PM CDT Neha Hodges MD LABORATORY Performing Organization Address City/[facility]/ZIP Code Phon e Number [facility] [place] [address] TRICHOMONAS VAGINALIS BY AMPLIFIED DETECTION-GENITAL SPECIMEN (11/26/2021 11:01 AM CDT) [employer] Method Time Signature Trichomonas Negative Negative [facility] Vaginalis Amp-Genital Comment: Test performed by layboy operator mediated amplification and is FDA approved for genital and urine specimens. ??The U.S. Food and Drug Administration has not cleared or approved the use of this assay for urine collections. The test is used for clinical purposes and should not be regarded as i nvestigational or for research. ??This assay has been validated for urines by the [facility]. ??The laboratory is certified under the Clinical Labor atory Improvement Amendments of 1988 as qualified to perform high complexity clinical laborat ory testing. Specimen Anatomical Collection Method Collection Time Receive d Time (Source) Location / / Volume Laterality Genital Spec 11/26/2021 11:01 11/26/2021 AM CDT 12:20 PM CDT Neha Hodges MD LABORATORY Performing Organization Address City/[facility]/ZIP Code Phon e Number [facility] [place] [address] (ABNORMAL) PANEL BASIC METABOLIC (BMP) (11/26/2021 11:01 AM CDT) P athologist Signature Sodium 138 135 - 148 [facility] mEq/L Potassium 3.4 (L) 3.5 - 5.3 [facility] mEq/L Chloride 105 92 - 108 [facility] mEq/L CO2 21 (L) 22 - 30 [facility] mEq/L AnGap 12 8 - 16 [facility] mEq/L Glucose 135 (H) 70 - 100 [facility] mg/dL BUN 8 6 - 20 [facility] mg/dL Creatinine 0.53 0.50 - 1.00 [facility] mg/dL Calcium 8.9 8.6 - 10.0 [facility] mg/dL eGFR, High >120 >=60 [facility] ml/min/1.73 m2 Comment: Calculated using CKD-EPI equati on eGFR, Low >120 >=60 ml/min/1.73m2 [facility] Comment: Calculated using CKD-EPI equati on Specimen Anatomical Collection Method Collection Time Receive d Time (Source) Location / / Volume Laterality Blood 11/26/2021 11:01 11/26/2021 AM CDT 12:10 PM CDT Neha Hodges MD LABORATORY Performing Organization Address City/[facility]/ZIP Code Phon e Number [facility] [place] [address] (ABNORMAL) BETA STREP CULTURE, VAG/RECT (11/26/2021 11:01 AM CDT) Patholo gist Method Time Signature Genital B Group B beta [facility] Strep hemolytic Streptococcus isolated. (POS) Organism GROUP B BETA [facility] HEMOLYTIC STREPTOCOCCUS (POS) Specimen Anatomical Collection Method Collection Time Receive d Time (Source) Location / / Volume Laterality Swab 11/26/2021 11:01 11/26/2021 (Vaginal/Rectal) AM CDT 12:21 PM CD T Narrative [facility] - 11/27/2021 9:43 AM CDT Perform susceptibility testing due to al lergy to penicillin or cephalosporin: No Neha Hodges MD LAB MICROBIOLOGY Performing Organization Address City/[facility]/ZIP Code Phon e Number [facility] [place], [place] [phone] [place] [address] from Last 3 Months Insurance Payer Benefit Plan Subscriber ID Effective Dates Phone Address Type / Group BLUE CROSS BCBS BLUE [id number] 2019-Presen [address] [address] [place] [facility] [place] [place] [address] [address] Debbie (Home) [address] [place] [address] CORPORATE, Corporate Other 04/11/2006 none karene shakir [employer] (Home) [place] [address] Advance Directives For more information, please contact: [phone] Latest Code Status on FileFull Code Date Activated Date Inactivated Comments 11/26/2021 5:57 PM 11/30/2021 5:38 PM Question Answer Comments Does the Patient have preferences regarding life sustaining No measures (these options only apply when the patient has a pulse): Discussed Code Status With Whom? Not discussed Care Teams Senior Systems Developer Relationship Specialty Start Date End Date Pcp, No PCP - General 01/04/12 [facility] [place] [address]
--- OUTSIDE RECORDS SUMMARY | 2022-01-14 01:41 | XMS_ITS | Encounter Summary ---
:1990 Author Organization [facility] Address [address] [place] [id number] Phone Care Team Providers Name Role Phone Pcp, No Primary Care Provider Unavailable Encounter Details Date Type Department Care Team Description 09/12/2019 Travel Social History Tobacco Use Types Packs/Day Years Used Date Smoking Tobacco: Never Alcohol Use Standard Drinks/Week Comments No 0 (1 standard drink = 0.6 oz pure alcoho l) 12/01/11 denies Sex Assigned at Date Recorded Not on file COVID-19 Exposure Response Date Recorded In the last month, have you been in contact with No / Unsure 09/12/2019 8:34 AM CDT someone who was confirmed or suspected to have Coronavirus / COVID-19? documented as of this encounter Plan of Treatment Not on filedocumented as of this encounter Visit Diagnoses Not on filedocumented in this encounter Care Teams Meat Press Operator Relationship Specialty Start Date End Date Pcp, No PCP - General 01/04/12 [facility] [place] [address] documented as of this encounter
--- OUTSIDE RECORDS SUMMARY | 2022-01-14 01:41 | XMS_ITS | Encounter Summary ---
:1990 Author Organization [facility] Address [address] [facility], [place] [address] Phone Care Team Providers Name Role Phone Pcp, No Primary Care Provider Unavailable Reason for Visit Reason Comments Engagement Call Unable to reach member by ph one for Welcome Call no phone number listed Encounter Details Date Type Department Care Team Description 02/29/2012 Telephone [facility] Radha Anderson Engagement Call (Unable [employer] [address] SU[address] to reach member by [address], [facility] phone for [facility] [address] [facility] [facility] Call no phone number [place] [address] [place] listed) [phone] (Wo rk) Social History Tobacco Use Types Packs/Day Years Used Date Smoking Tobacco: Never Alcohol Use Standard Drinks/Week Comments No 0 (1 standard drink = 0.6 oz pure alcoho l) 12/01/11 denies Sex Assigned at Date Recorded Not on file documented as of this encounter Miscellaneous Notes Telephone Encounter - Radha Anderson - 02/29/2012 1:22 PM CST Unable to reach member by phone for Welcome Call no phone number listed TRAILER FILLER documented in this encounter Plan of Treatment Not on filedocumented as of this encounter Visit Diagnoses Not on filedocumented in this encounter Care Teams Supervisor Asphalt Paving Relationship Specialty Start Date End Date Pcp, No PCP - General 01/04/12 [facility] [place] [address] documented as of this encounter
--- OUTSIDE RECORDS SUMMARY | 2022-01-14 01:41 | XMS_ITS | Encounter Summary ---
:1990 Author Organization [facility] Address [address] [place] [address] Phone Care Team Providers Name Role Phone Pcp, No Primary Care Provider Unavailable Reason for Visit Auth/Cert (Routine) Specialty Diagnoses / Procedures Referred By Contact Refer red To Contact NURSE [place] Neha Hodges MD Package Dyeing Machine Operator [address] [facility] [address] [place], [place] [address] 5 [address] [place] [address] Phone: Fax: Referral ID Status Reason Start Date Expiration Date Visits Requ ested Visits Authorized [id number] 11/26/2021 1 1 Encounter Details Date Type Department Care Team Description 11/26/2021 Emergency [facility] Emergency Depar tment [address] [facility] [address] [place], [place] [address] Social History Tobacco Use Types Packs/Day Years Used Date Smoking Tobacco: Never Alcohol Use Standard Drinks/Week Comments No 0 (1 standard drink = 0.6 oz pure alcoho l) 12/01/11 denies Sex Assigned at Date Recorded Not on file documented as of this encounter Medications at Time of Discharge Medication Sig Dispensed Refills Start Date End Date sennosides-docusate Take 1-2 tablets by 60 tablet 3 022 sodium (STOOL mouth twice daily SOFTENER/LAXATIVE) as needed for 8.6-50 mg oral tablet Constipation. hydrOXYzine Take 1-2 [...] oral TABS mg) by mouth at bedtime. cloNIDine (CATAPRES) 0.1 0 11/30/2021 mg oral tablet hydrOXYzine 0 11/30/2021 (ATARAX;VISTARIL) 50 mg oral tablet documented as of this encounter ED Notes Farheen Iraheta RN - 11/26/2021 9:38 AM CDT Pt dismissed to L and D documented in this encounter Plan of Treatment Not on filedocumented as of this encounter Visit Diagnoses Not on filedocumented in this encounter Care Teams Innersole Maker Relationship Specialty Start Date End Date Pcp, No PCP - General 01/04/12 [facility] [place] [address] documented as of this encounter
--- OUTSIDE RECORDS SUMMARY | 2022-01-14 01:42 | XMS_ITS | Encounter Summary ---
:1990 Author Organization [facility] Address [address] [place] [address] Phone Care Team Providers Name Role Phone Unavailable Primary Care Provider Unavailable Reason for Visit Reason Comments Legal Blood Draw Encounter Details Date Type Department Care Team Description 12/02/2011 Hospital Encounter Legal Evidence Uday Hess legal e vidence Collection W, collection [place] Social History Tobacco Use Types Packs/Day Years Used Date Smoking Tobacco: Never Alcohol Use Standard Drinks/Week Comments No 0 (1 standard drink = 0.6 oz pure alcoho l) 12/01/11 denies Sex Assigned at Date Recorded Not on file documented as of this encounter Plan of Treatment Not on filedocumented as of this encounter Visit Diagnoses Diagnosis Examination for medicolegal reason - Bonita person documented in this encounter
--- OUTSIDE RECORDS SUMMARY | 2022-01-14 01:42 | XMS_ITS | Encounter Summary ---
:1990 Author Organization [facility] Address [address] [place] [address] Care Team Providers Name Role Phone None, Pcp Primary Care Provider Unavailable Reason for Visit Reason Onset Date Comments [id number] Results 06/30/2021 Encounter Details Date Type Department Care Team Description 06/30/2021 Telephone [facility] Pia Delgado MD [id number] Results [facility] Ob /Small Products I Assembler [address] [facility] [address] [place] [address] [place], [place] [phone] ( rk) Social History Tobacco Use Types Packs/Day Years Used Date Former Smoker Cigarettes 1 Quit: 03/2020 Smokeless Tobacco: Never Used Alcohol Use Standard Drinks/Week Comments Not Currently 0 (1 standard drink = 0.6 oz pure alcoho l) Sober since 2014 Alcohol Habits Answer Date Recorded How often do you have a drink containing alcohol? Monthly or less 05/26/2021 How many drinks containing alcohol do you have on a 1 or 2 05/26/2021 typical day when you are drinking? How often do you have six or more drinks on one Never 05/26/2021 occasion? Comment: Sober since 201403/21/2020 Social Isolation Answer Date Recorded In a typical week, how many times do you talk on Not asked 03/21/2020 the phone with family, friends, or neighbors? How often do you get together with friends or Not asked 03/21/2020 relatives? How often do you attend rastafarian or adventism Not asked 03/21/2020 services? Do you belong to any clubs or organizations such as Argelia schilling 03/21/2020 rastafarian groups, unions, fraternal or athletic groups, or school groups? How often do you attend meetings of the clubs or Not asked 03/21/2020 organizations you belong to? Are you now , , , , Living wi partner 05/26/2021 never or living with a partner? Physical Activity Answer Date Recorded On average, how many days per week do you engage in moderate to 4 days 05/26/2021 strenuous exercise (like walking fast, running, jogging, dancing, swimming, biking, or other activities that cause a light or heavy sweat)? On average, how many minutes do you engage in exercise at is 20 min 05/26/2021 level? Stress Answer Date Recorded Do you feel stress - tense, restless, nervous, or anxious, N ot at all 05/26/2021 or unable to sleep at night because your mind is troubled all the time - these days? Financial Resource Strain Answer Date Recorded How hard is it for you to pay for the very basics like Not v shahida hard 05/26/2021 food, housing, medical care, and heating? Intimate Partner Violence Answer Date Recorded Within the last year, have you been afraid of your partner o r No 05/26/2021 ex-partner? Within the last year, have you been humiliated or emotionall y No 05/26/2021 abused in other ways by your partner or ex-partner? Within the last year, have you been kicked, hit, slapped, or No 05/26/2021 otherwise physically hurt by your partner or ex-partner? Within the last year, have you been raped or forced to have any No 05/26/2021 kind of sexual activity by your partner or ex-partner? Food Insecurity Answer Date Recorded Within the past 12 months, you worried that your food would Never true 07/10/2020 run out before you got money to buy more. Within the past 12 months, the food you bought just didn't N ever true 07/10/2020 last and you didn't have money to get more. Transportation Needs Answer Date Recorded In the past 12 months, has lack of transportation kept you f rom No 05/26/2021 medical appointments or from getting medications? In the past 12 months, has lack of transportation kept you f rom No 05/26/2021 meetings, work, or getting things needed for daily living? Housing Stability Answer Date Recorded In the last 12 months, was there a time when you were not ab le No 05/26/2021 to pay the mortgage or rent on time? In the last 12 months, how many places have you lived? 3 05/26/2021 In the last 12 months, was there a time when you did not hav e a No 05/26/[address] or slept in a usp (including now)? Education Answer Date Recorded What is the highest level of school you have High school gra duate 03/21/2020 completed or the highest degree you have received? Sex Assigned at Date Recorded Not on file documented as of this encounter Miscellaneous Notes Telephone Encounter - Jolanta Manjarrez RN - 06/30/2021 8:02 AM CDT [id number] results given. Gender requested, given. No further questions or concerns. documented in this encounter Plan of Treatment Not on filedocumented as of this encounter Goals Goal Patient Goal Associated Recent Patient-Stated? Author Type Problems Progress secure housing General Yes Melissa Coronado, DNP, SPLICING MACHINE OPERATOR, ASSISTANT HEAD CASHIER Note: Formatting of this note might be d ifferent from the original. - has applied for several housing lists; waiting to hear back, wants to be near family Quit using tobacco (cigarettes, Tobacco Use No Melissa Coronado, DNP, SPLICING MACHINE OPERATOR, smokeless, etc) ASSISTANT HEAD CASHIER Note: Formatting of this note might be d ifferent from the original. Will use nicorette gum in case of breakt hrough craving. Will find some candy or suckers to use d uring group to occupy her hands/oral fixation documented as of this encounter Visit Diagnoses Not on filedocumented in this encounter Care Teams Fortune Cookie Maker Relationship Specialty Start Date End Date None, Pcp PCP - General Stoneworking Sander 02/06/19 [address] [place] [address] documented as of this encounter
--- OUTSIDE RECORDS SUMMARY | 2022-01-14 01:42 | XMS_ITS | Encounter Summary ---
:1990 Author Organization [facility] Address [address] [place] [address] Care Team Providers Name Role Phone None, Pcp Primary Care Provider Unavailable Encounter Details Date Type Department Care Team Description 08/24/2021 Lab [facility] 18 weeks gestation of pregna ncy; [address] Supervision of high risk pre gnancy, [place] [address] Social History Tobacco Use Types Packs/Day Years [...] 03/21/2020 relatives? How often do you attend anabaptist or latter day Not asked 03/21/2020 services? Do you belong to any clubs or organizations such as Argelia schilling 03/21/2020 anabaptist groups, unions, fraternal or athletic groups, or school groups? How often do you attend meetings of the clubs or Not asked 03/21/2020 organizations you belong to? Are you now , , , , Living wi th partner 05/26/2021 never or living with a [...] place to sleep or slept in a long term (including now)? Education Answer Date Recorded What [...] secure housing General Yes Melissa Coronado, DNP, PIGMENT PUSHER, FISH SEINER Note: Formatting of this note might be d ifferent from the original. - has applied for several housing lists; waiting to hear back, wants to be near family Quit using tobacco (cigarettes, Tobacco Use No Melissa Coronado, JUAN DIEGO, PIGMENT PUSHER, smokeless, etc) FISH SEINER Note: Formatting of this note might be d ifferent from the original. Will use nicorette gum in case of breakt hrough craving. Will find some candy or suckers to use d uring group to occupy her hands/oral fixation documented as of this encounter Procedures Procedure Name Priority Date/Time Associated Comments Diagnosis BUPRENORPHINE Routine 08/24/2021 4:09 PM 18 weeks gestation Re sults for this CONFIRMATION CDT of procedure are in [facility] lts risk , section. antepartum RAPID DRUG SCREEN, Routine 08/24/2021 4:09 PM 18 weeks gestati on Results for this URINE CDT of procedure are in Supervision of [facility] lts risk , section. antepartum documented in this encounter Results Buprenorphine conf. (08/24/2021 4:09 PM CDT) [facility] gist Method Time Signature Buprenorphine see below 09/07/2021 [facility] 11:17 AM CDT LABORATORIES Comment: See scanned [facility] Report. Specimen Anatomical Collection Method Collection Time Receive d Time (Source) Location / / Volume Laterality 08/24/2021 4:09 PM 2 4:35 CDT PM CDT Lisa Prasad MD LAB URINE ORDERABLES Performing Organization Address City/State/ZIP Code Phon e Number [facility] [address] [place] [address] (ABNORMAL) Rapid drug screen, urine (lab staff release/collect) (08/24/2021 4:09 PM CDT) P athologist Signature Rapid Urine ----- 08/24/2021 [facility] Drug Screen 4:09 PM T CENTER LAB[facility]ORY Comment: This is a screening test. ??Positive res ults should be considered presumptive and are sent to [facility] for confirmation. This test is not for legal purposes - on medical. Tetrahydrocannabinol NOT DETECTED Not Detected 08/24/2021 4: 54 [facility] Phencyclidine, Mec NOT DETECTED Not Detected 08/24/2021 4:54 [facility] Cocaine NOT DETECTED Not Detected 08/24/2021 4:54 [facility] Methamphetamine NOT DETECTED Not Detected 08/24/2021 4:54 [facility] Opiates NOT DETECTED Not Detected 08/24/2021 4:54 [facility] Amphetamines NOT DETECTED Not Detected 08/24/2021 4:54 [facility] Benzodiazepines NOT DETECTED Not Detected 08/24/2021 4:54 [facility] TCA, Urine NOT DETECTED Not Detected 08/24/2021 4:54 [facility] Methadone NOT DETECTED Not Detected 08/24/2021 4:54 [facility] Barbiturates NOT DETECTED Not Detected 08/24/2021 4:54 [facility] Oxycodone NOT DETECTED Not Detected 08/24/2021 4:54 [facility] Propoxyphene NOT DETECTED Not Detected 08/24/2021 4:54 [facility] Buprenorphine DETECTED (A) Not Detected 08/24/2021 4:54 [facility] Comment: [facility]. Detectable Levels ----- 08/24/2021 4:09 PM CDT [facility] Comment: Amphetamines ?500 ng/ mL Barbiturates ?200 ng/ mL Buprenorphine ? 10 ??ng/ ml Benzodiazepines ? 150 ng/mL Cocaine ? 150 n g/mL Methamphetamine ? 500 ng/mL Methadone ? 200 ng /mL Opiates ? 100 n g/mL Oxycodone ? 100 ng /mL Phencyclidine ? 25 ng/mL Propoxyphene ?300 ng/ mL Tetrahydrocannabinol ?50 ng/mL Tricyclic Antidepressant ??300 ng/mL Specimen Anatomical Collection Method Collection Time Receive d Time (Source) Location / / Volume Laterality Urine (Urine, 08/24/2021 4:09 PM 08/25/19 4:35 Clean Catch) CDT PM CDT Lisa Prasad MD LAB URINE ORDERABLES Performing Organization Address City/State/ZIP Code Phon e Number [facility] [address] [place] [address] documented in this encounter Visit Diagnoses Diagnosis 18 weeks gestation of Supervision of high risk , ante documented in this encounter Care Teams Assistant Center Manager Relationship Specialty Start Date End Date None, Pcp PCP - General Sampler And Test Preparer 02/06/[address] [place] [address] documented as of this encounter
--- OUTSIDE RECORDS SUMMARY | 2022-01-14 01:42 | XMS_ITS | Encounter Summary ---
:1990 Author Organization [facility] Address [address] [place] [address] Care Team Providers Name Role Phone None, Pcp Primary Care Provider Unavailable Reason for Visit Reason Onset Date Comments resched CAITLIN/US 11/03/2021 Encounter Details Date Type Department Care Team Description 11/03/2021 Telephone [facility] Sonia Valencia , CANINE SERVICE INSTRUCTOR TRAINER, resched [facility] Hospital Glass Cutter Hand DIAMOND SORTER [address] [facility] [address] [place] [address] [place], [place] [phone] (Wo rk) Social History Tobacco Use Types [...] 03/21/2020 relatives? How often do you attend cheondoism or restorationism Not asked 03/21/2020 services? Do you belong to any clubs or organizations such as Argelia schilling 03/21/2020 cheondoism groups, unions, fraternal or athletic groups, or [...] place to sleep or slept in a fdc (including now)? Education Answer Date Recorded What is the highest level of school you have High school gra duate 03/21/2020 completed or the highest degree you have received? Sex Assigned at Date Recorded Not on file documented as of this encounter Miscellaneous Notes Telephone Encounter - Maria Del Carmen Ellis - 11/06/2021 8:38 AM CDT LMTRC Telephone Encounter - Maria Del Carmen Ellis - 11/05/2021 8:25 AM CDT [facility]TR[facility] Telephone Encounter - Maria Del Carmen Ellis - 11/04/2021 8:15 AM CDT [facility] Telephone Encounter - Maria Del Carmen Ellis - 11/04/2021 7:00 AM CDT Pt missed tummy check with MDs. No US missed/no order placed. Telephone Encounter - Majo Cates - 11/03/2021 5:27 PM CDT Reschedule CAITLIN and US documented in this encounter Plan of Treatment Not on filedocumented as of this encounter Goals Goal Patient Goal Associated Recent Patient-Stated? Author Type Problems Progress secure housing General Yes Melissa Coronado, JUAN DIEGO, CANINE SERVICE INSTRUCTOR TRAINER, DIAMOND SORTER Note: Formatting of this note might be d ifferent from the original. - has applied for several housing lists; waiting to hear back, wants to be near family Quit using tobacco (cigarettes, Tobacco Use No Melissa Coronado, JUAN DIEGO, CANINE SERVICE INSTRUCTOR TRAINER, smokeless, etc) DIAMOND SORTER Note: Formatting of this note might be d ifferent from the original. Will use nicorette gum in case of breakt hrough craving. Will find some candy or suckers to use d uring group to occupy her hands/oral fixation documented as of this encounter Visit Diagnoses Not on filedocumented in this encounter Care Teams Ironworker Apprentice Relationship Specialty Start Date End Date None, Pcp PCP - General Floor Molder 02/06/19 [address] [place] [address] documented as of this encounter
--- OUTSIDE RECORDS SUMMARY | 2022-01-14 01:42 | XMS_ITS | Encounter Summary ---
:1990 Author Organization [facility] Address [address] [place] [address] Care Team Providers Name Role Phone None, Pcp Primary Care Provider Unavailable Encounter Details Date Type Department Care Team Description 09/30/2021 Telephone [facility] Women's Health Molly Esparza MD [facility] Fiberglass Boat Assembly Supervisor [address] [facility] [address] [place] [phone] [place], [place] [address] [phone] Social History Tobacco Use Types Packs/Day Years [...] 03/21/2020 relatives? How often do you attend gnosticist or sabianism Not asked 03/21/2020 services? Do you belong to any clubs or organizations such as Argelia schilling 03/21/2020 gnosticist groups, unions, fraternal or athletic groups, or [...] place to sleep or slept in a fpc (including now)? Education Answer Date Recorded What is the highest level of school you have High school gra dumohamud 03/21/2020 completed or the highest degree you have received? Sex Assigned at Date Recorded Not on file documented as of this encounter Miscellaneous Notes Telephone Encounter - Pinky Edmond RN - 10/14/2021 9:47 AM CDT Patient is scheduled today for a tummy check with notify nurse. Telephone Encounter - Pinky Edmond RN - 10/09/2021 1:29 PM CDT LMTCB Telephone Encounter - Karla Davila - 10/09/2021 9:53 AM CDT LMTRC Telephone Encounter - Pinky Edmond RN - 10/07/2021 9:14 AM CDT LMTCB Telephone Encounter - Pinky Edmond RN - 10/06/2021 9:41 AM CDT Nurse tried calling the patient and her partner answered he will relay the message to have Anjali call [facility] back. Telephone Encounter - Karla Davila - 10/02/2021 9:07 AM CDT LMTRC Telephone Encounter - Pinky Edmond RN - 09/30/2021 2:51 PM CDT Patient was supposed to have a echo today and no showed her appointment. [facility] staff called over to let nursing know she has until 4 pm on 10/01 to call back to reschedule otherwise a new order will need to be placed. Nurse attempted to call the patient and left a message to call back. The patient has an upcoming appointment on 10/05. documented in this encounter Plan of Treatment Not on filedocumented as of this encounter Goals Goal Patient Goal Associated Recent Patient-Stated? Author Type Problems Progress secure housing General Yes Melissa Coronado, DNP, CARTON FORMING MACHINE TENDER, RICE DRYER MECHANIC Note: Formatting of this note might be d ifferent from the original. - has applied for several housing lists; waiting to hear back, wants to be near family Quit using tobacco (cigarettes, Tobacco Use No Melissa Coronado, DNP, CARTON FORMING MACHINE TENDER, smokeless, etc) RICE DRYER MECHANIC Note: Formatting of this note might be d ifferent from the original. Will use nicorette gum in case of breakt hrough craving. Will find some candy or suckers to use d uring group to occupy her hands/oral fixation documented as of this encounter Visit Diagnoses Not on filedocumented in this encounter Care Teams Vacuum Cleaner Repairer Relationship Specialty Start Date End Date None, Pcp PCP - General Corporate Recruiter 02/06/[address] [place] [phone] documented as of this encounter
--- OUTSIDE RECORDS SUMMARY | 2022-01-14 01:42 | XMS_ITS | Clinical Summary ---
:1990 Author Organization [facility] Address [address] [place] [address] Care Team Providers Name Role Phone None, Pcp Primary Care Provider Unavailable Allergies Active Allergy Reactions Severity Noted Date Comments Dog Epithelium Allergy Other (see comments) 12/13/2015 Watering eyes Skin Test Dust Mite Extract Other (see comments) 12/29/2011 Wa tering eyes, sneezing Ragweed Other (see comments) 12/13/2015 Water e yes, sneezing Sulfa Antibiotics Other (see comments) 04/12/2013 Medications Medication Sig Dispensed Refills Start Date End Date Status acetaminophen Take 1,000 mg by 0 Active (TYLENOL) 500 MG mouth every 6 tablet (six) hours if needed for mild pain aspirin EC 81 MG EC Take 81 mg by 0 06/20/2020 Active tablet mouth daily bisacodyl INSERT ONE 30 suppository 3 05/06/2021 Act nadia (DULCOLAX) 10 MG SUPPOSITORY INTO suppositoryIndicati THE RECTUM ONCE ons: Other DAILY PRN constipation albuterol HFA Inhale 2 puffs 18 g 1 05/14/2021 Active (Ventolin HFA) 108 every 4 (four) (90 Base) MCG/ACT hours if needed inhalerIndications: for wheezing or Cough shortness of breath Additional Information Patient not taking. Reported on 05/26/2021 Vit-Fe Fumarate-FA (KP Take by mouth 0 Active MULTIVITAMINS PO) DULoxetine (CYMBALTA) [address] Take 40 mg by mouth 1 (one) 0 Active capsule time each day Do not crush or chew. Vyvanse 30 MG capsule Take by mouth 1 (one) time 0 0 05/20/2021 Active each day buprenorphine (SUBUTEX) 8 MG 16 mg 0 05/20/2021 Active buPROPion XL (WELLBUTRIN XL) 150 Take 150 mg by mouth 1 0 07/20/2021 Active MG 24 hr tablet (one) time each day busPIRone (BUSPAR) 10 MG tablet Take 10 mg by mouth 2 (two) 0 07/20/2021 Active times a day buprenorphine (SUBUTEX) [address] 2 mg under the tongue 0 08/12/2021 Active once folic acid (FOLVITE) 400 MCG Take 800 mcg by mouth 1 0 Active tablet (one) time each day Active Problems Problem Noted Date History of poor growth 08/24/2021 Overview: @ end of 2nd growth plateau -- > but not SGA Plan 30 and 36 week growth. Unwanted fertility 08/24/2021 Overview: Desires sterilization Episode of recurrent major depressive disorder 022 Overview: 07-27-2021: Currently on multiple medicat ions. Currently stable and under the care of an outside psychiatrist (records requested). [facility] Attention deficit hyperactivity disorder (ADHD), combi ellis type 07/29/2021 Overview: 07-27-2021: Currently under medical treat ment. [facility] History of section, classical 10/02/2020 Overview: 09/08/2021 MFM I reviewed with the patient that with a prior section with extension, she is not a candidate for trial of labor after . She has an anterior placenta but it appears normal without eviden ce of accreta. She will need to have a d elivery between 37 and 0 and 38 and 0. She is wanting to wait as long as possible. I stated we can use cervical dilation and contraction frequency around the time of the planned delivery to help guide h er in this window. Family history of congenital anomaly of cardiovascular system 07/10/2020 Overview: Formatting of this note is dif ferent from the original. First child - with complex cardiac defec t, no surgeries or meds for this. 2nd child was fine. [ ] 24 week echo Patient TORRES ([facility]) 06/19/2020: Final Impressions 1. Normal cardiac valves. ??Trileaflet a ortic valve. 2. Normal left ventricular chamber size. ??Calculated ejection fraction 62%. 3. No regional wall motion abnormalities . 4. Normal left ventricular diastolic fun ction. 5. Normal right ventricular chamber size and systolic function. 6. Estimated right ventricular systolic pressure 28 mmHg (systolic blood pressure 120 mmHg). 7. Normal ascending aorta diameter. 8. No pericardial effusion. History of gestational hypertension 06/20/2020 Overview: @ end of first Opioid use disorder, moderate, in early remission, on maintenance therapy 04/17/2020 Overview: Sober since fall, last use 01/2021. Rela pse with depression prescriber - Tone Carroll - [facility]. subutex - 8 in Am, 8 in evening, has a 2 for if needed. 09.08.21 MFM 09.08.21 MFM Drug dependence, opioid use disorder in early remission ADD On maintenance therapy HPI: Longstanding drug use since age 20. Drugs of choice- methamphetamines heroin and cocaine. Positive history of IV drug use. last use February 2020 then a few weeks after last delivery. No w on buprenorphine/Subutex 18 mg daily, prescribed by addiction physician at [facility]. No involuntary termination of parental rights. On Vyvanse. Last Assessment & Plan: It was a pleasure to visit with Ms. Teddy thompson. She is maintained at stable dose of 20 mg Subutex daily. She delivered a healthy baby boy via and is adjusting to life with the again. Concerns: nicotine dependence; emotional health, relationship with child's father Last UDS results: as expected Today's Plan: Continue Subutex 20 mg trisha ly with follow-up in 4 weeks , supervision, high-risk, third trimester 02/2020 Overview: Formatting of this note is dif ferent from the original. 03.20.20 triage intake Last menstrual period: no idea, I have very irregular periods. I had an ultrasound at [facility] - unknown Positive test date: 02/09/2020 Does the patient have nausea or vomiting ? 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 Had been smoking cigarettes. Per [facility] Monthly Prescribing Reference Buprenorphine Sublingual Tablets Warning s/Precautions: Abuse potential (monitor). Risk of signi ficant respiratory depression; monitor. Compromised respiratory function (eg, COPD, cor pulmonale, decreased respiratory reserve, hypoxia, hypercapnia, pre-existi ng respiratory depression). Sleep-relate d breathing disorders (including central sleep apnea (CSA), sleep-related hypoxemia); consider dose reduction if CSA develops. Accidental exposure may cause fatal overdose (tracee. in children). Adrenal in sufficiency. Obtain LFTs at baseline then monitor periodically; evaluate if hepatic event is suspected. Opioid- na??ve. Elevated CSF pressure (eg, head injury, int racranial lesions). Biliary tract dysfun ction. Acute abdomen. ACCOUNT CONSULTANT depression. Moderate and severe hepatic impairment. Drug abusers. Reevaluate periodically. Avoid abrupt cessation. Elderly. Labor & delivery: may need additional analgesia. /: may need dose adjustments; monitor closely for withdrawal. Potential opioid withdrawal syndrome during prolonged use. 1.16.20 [facility] RPR- Rubella i HIV ?? -/- HepB sAg- Hgb 12.6 g/dL Plt 282K B+ Ab- RUDS Buprenorphine, U+ UCx mixed lisa Pap HPV- wnl GC/Chlam -/- 12.17.20 [id number] wnl XX 28 Week Labs Lab Results Component Value Date HGB 11.6 (L) 07/10/2020 PLT 300 07/10/2020 GLUT1 112 07/10/2020 RPR NON-REACTIVE 07/10/2020 09/08/2021 MFM ?? Weight gain should be determined by p repregnancy BMI (usually up to 15 lbs). ?? Perform an early assessment for GDM a nd repeat glucola at 28 weeks. ?? US for growth at 30-32 weeks ?? No need for antepartum surveillance f or the indication of opioid dependence on maintenance therapy unless currently using ?? Ongoing drug screening per protocol a nd maternal drug screening and meconium screening at delivery ?? Patient may continue ADD medicines if she feels the benefits outweigh the risks ?? echo for history of CHD prior b enio ?? 09/30/2021 Patient was supposed to hav e a echo today and no showed her appointment. ?? Plan section at 37 and 0 thr ough 38 and 0 ?? with tubal ligation ?? sign tubal papers later in ?? Follow for peripartum mood disorder ?? At risk for relapse after delivery gi linnette history ?? Follow asthma, headaches though these are not current issues ?? Patient is made aware of increased ce sarean risk. ?? If is needed, consider incre ased doses (cefazolin 3 grams for women ?120 kg) and/or broad spectrum antibiotics (addition of azithromycin 500 mg if in labor) ?? Recommend SCDs and consider prophylac tic heparin until discharge --Consider anesthesia consult in third t as pain management can be difficult --Patient is aware that risk of abstinence is present and may require transfer of care to [facility] NICU Alteration in parenting 03/21/2020 Overview: 02.25.20 NOB @[facility] Patient is engaged and has a 5yo son who resides with his paternal grandmother. She feels he is safe. Patient resides with grandparents, father, sister, and sister's girlfriend. Thursday March 26, 2020 12w4d States she and her son's FOB have frequent contact with him. Irritable bowel syndrome with constipation 08/01/2019 Overview: Long-standing Has taken amitiza No stool unless uses a suppository or an enema. 09/08/2021 [facility] IBS symptoms Constipation predominant and dependent u edd Dulcolax suppositories for bowel movements since childhood; not been seen yet by GI medicine due to Covid -->still ongoing; her eval was cancelled due to covid; will pursue pp Disorder of arteries and arterioles 02/01/2019 Overview: Formatting of this note is dif ferent from the original. 04.23.19 entry Patient also was admitted to [place] with strokelike symptoms February 01 and . 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 Has been maintained on aspirin. No further symptoms. 02.01.19 [facility] Result Impression 1. No acute intracranial findings. 2. 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 Other Result Information This result has an attachment that is no t available. Result Narrative EXAM: CT HEAD WITHOUT IV CONTRAST, CT HE AD NECK ANGIOGRAM WITH IV CONTRAST COMPARISON: None FINDINGS: HEAD CT: No acute intracranial hemorrhag e, mass effect, extra-axial fluid collection, or acute infarction. Paranas al sinuses and mastoid air cells are well aerated. Deviated nasal septum. HEAD/NECK CTA: Conventional anatomy of t he aortic arch. Thin smooth membrane-like intraluminal filling defec t on the posterior wall of the left carotid bulb (series 7, image [id number]). Findings are consistent with a carotid web. The remainder of the bilateral carotid arteries are patent. Vertebral arteries are patent without hemodynamically sign ificant stenosis, occlusion, or dissecti on. Conventional anatomy of the patent [place] of [place] and vertebrobasilar system without hemodynamically significant stenosis, occlusion, or aneurysm. Major dural venous sinuses are patent. Findings discussed with Dr. Mirza (pa michelle [id number]) at 4:30 AM on 02/01/2019. 04.26.19 Neuro Anjali Hoang is a 29 y.o. female refe rred by Dr. 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 In January 2019, the patient began to ex perience left face/jaw pain. In the course of her work-up, she was found to have a left carotid artery web (vs less likely dissection), which is an incidental fin ding. An MRI brain and MRA head/neck did not find any abnormalities. It was determined that her pain was likely due to poor dentition, and it was recommended that she see a dentist for the pain. For com pleteness' sake, the [facility] recommended repeat CTA imaging of the neck after 3 months to confirm the diagnosis of carotid web. The patient reports that her pain in the face is significantly improved. She has not yet gone to the dentist. ?? Circulatory ?? Carotid artery disorder (HCC) - Prima ry ?? Relevant Orders ?? CT neck angio ?? CTA of the neck has been ordered, per [facility]'s recommendations. If this shows continued evidence of carotid web, her aspirin can be discontinued. No follow-up will be scheduled at this leena e; I will contact her with the results b y telephone. She has a copy of my business card if needed. She has no further questions or concerns, and is pleased with this plan. ?? History of hepatitis C virus infection 06/24/2017 Overview: Formatting of this note is dif ferent from the original. Spontaneously resolved Lab Results Component Value Date HAV see below 03/26/2019 HEPBCAB see below 03/26/2019 HEPCAB REACTIVE (AA) 03/26/2020 Component Latest Ref Rng & Units 06/25/2021 HCV RNA Detect/Quant, S Undetected IU/mL Undetected Lab Results Component Value Date ALT 19 03/26/2020 AST 36 03/26/2020 ALKPHOS 85 04/18/2019 BILITOT <0.7 04/18/2019 Anxiety 12/27/2014 Overview: wellbutrin and buspar doing very well. NO longer on cymbalta Mild intermittent asthma 07/01/2014 Overview: Never using inhaler No h/o hospitalization Nicotine dependence 04/02/2011 Overview: vaping Estimated Date of Delivery Comments Yes 01/21/2022 Based on last menstr ual period of 04/16/2021 (Within Days) Resolved Problems Problem Noted Date Resolved Date Encounter for care and examination of lactating mother 10/0308/24/2021 Drug dependence affecting , childbirth, or 06/21/1911/21/2020 [place] Weight gain 04/25/2020 08/24/2021 Overview: 04/25/20 Pain at 16-week visit. Patient noted an increase in weight gain when she became and also quit using drugs. We will continue to monitor closely to see if this is an ongoing trend.-MSR Other constipation 04/23/2020 04/23/2020 Overview: 04/23/20 Chronic issue. Was supposed to have scop es prior to cancelled due to COVID-19. Daily suppositories-MSR Unsure of last menstrual period as reason for ultrasound sca n 03/21/2020 04/14/2020 Overview: Dating by 02.25.20 8+2 -> EDC 10.04.20 @ [facility] Combined drug dependence, continuous abuse 02/25/2020 11/21/2020 Overview: Formatting of this note is dif ferent from the original. As of 04.23.19 [facility] Per 02.25.20 NOB @[facility]: ? ? Drug use: Yes Types: Methamphetamines, Heroin, Cocaine Comment: Last use yesterday 01/30/2020 ( Tuesday) heroin, methamphetamin (Tuesday01/29/2020) 02.25.20 RUDS - Buprenorphine, U+ only #2 Dependence Polysubstance Continuous ( HCC) The patient is followed by her addiction physician, Dr. Anthony Rebolledo ([phone]) and has an appointment with him scheduled on Tuesday. Of note, she would like to enroll in inpatient rehabilitati on through [facility] ([phone]) and we will address this later this week. A urine drug screen will be obtained today, and the patient has been counseled regarding the risks associated with drug use during the . 03.21.20 [facility] NO[facility] Phone Call RN completed NOB phone call. MODERATE-HI GH RISK: (Pt answered 'yes' to Past, 'yes' to , and/or 'yes' to > 2 Ps): The patient was given the 4 Ps screening tool and the score placed the patien t into the moderate-high risk zone of us e. The positive screening result was forwarded to the provider. Patient reports heroin use up until 03/01/20. Currently on Subutex. Anjali is currently in treatme nt at [facility] and pl ans to be there for another 45 days. She has been sober for about three weeks for now. LOPEZ is currently in senior living and they are both working on themselves right now and not together. He has a history of drug and alcohol use as well. Both of Anjali's parents and grandparents also have had drug and alcohol abuse issues. She hopes to be accepted into [facility] upon release from her current inpatient program. [place] , amphetamines and heroin, t he latter her DOC. 2.3.21 [facility] Drug dependence, opioid use disorder in early remission On maintenance therapy HPI: Longstanding drug use since age 20. Drugs of choice- methamphetamines heroin and cocaine. Positive history of IV drug use. last use February 2020. Now on buprenorphine/Subutex 20 mg daily, prescrib ed by addiction physician at [facility]. In [facility] at [place] [facility] --> recent [facility] to [facility] [place]. In intensiv e therapy 5 days a week. Father of the b enio incarcerated/history of drug and alcohol use but plans to reunite under 1 roof. No involuntary termination of parental r ights. 07/07/20 Referred to [facility] given use of S uboxone and possibility of ERIS in [facility] consult with Ultrasound at [facility] on - Delivery planned at [facility], but would li ke to continue care at [facility] until 36 weeks, then transfer over. Opioid dependence in remission 08/01/2019 0 Peripheral vascular disease 04/26/2019 03/21/2020 Migraine headache 05/18/2017 11/21/2020 Overview: WITH aura, Vision starts going, tunnel vision. Unspecified viral hepatitis C without hepatic coma 8 08/29/2020 Chronic pain syndrome 05/31/2016 03/21/2020 Other [facility] (current) drug therapy 04/05/2016 0 08/24/2021 Overview: Formatting of this note might be differe nt from the original. Buprenorphine for history of opioid use disorder. Encounters Date Type Specialty Care Team Description 11/03/2021 Routine Obstetrics and Sonia Ashley, Preg[place] cy, supervision, high-risk, third trimester (Primary Dx); Gynecology SUBSTANCE ABUSE NURSE, CLASSROOM INSTRUCTIONAL AIDE 28 weeks gestat ion of ; 30 weeks gestat ion of 11/03/2021 Telephone Obstetrics and Sonia Ashley, resched CAITLIN /US Gynecology SUBSTANCE ABUSE NURSE, CLASSROOM INSTRUCTIONAL AIDE 10/14/2021 Routine Obstetrics and Monica Delgado on deficit Gynecology MD Junior hyperactivity d isorder (ADHD), combine d type (Primary Dx) from Last 3 Months Immunizations Name Administration Dates Next Due Influenza 6mo-49yrs Quad Preservative Free IM 04/27/2021, Influenza TIV (IM) 05/26/2012, 01/17/2012 Pneumococcal Polysaccharide 05/27/2012 TD Preservative Free 07/22/2019 Tdap 07/10/2020, 06/26/2013 Family History Medical History Relation Comments Alcohol abuse Brother Alcohol abuse Father Drug abuse Father Alcohol abuse Maternal Grandfather Cancer Maternal Grandfather Drug abuse Maternal Grandfather Alcohol abuse Maternal Grandmother Drug abuse Maternal Grandmother Heart disease Maternal Grandmother Alcohol abuse Mother Drug abuse Mother Alcohol abuse Paternal Grandfather Diabetes Paternal Grandfather Heart disease Paternal Grandfather Arthritis Paternal Grandmother Alcohol abuse Sister Drug abuse Sister Migraines Sister Heart defect Son Relation Status Comments Brother Father Maternal Grandfather Maternal Grandmother Mother Paternal Grandfather Paternal Grandmother Sister Son Social History Tobacco Use Types Packs/Day Years [...] 03/21/2020 relatives? How often do you attend denominational or religion Not asked 03/21/2020 services? Do you belong to any clubs or organizations such as Argelia schilling 03/21/2020 denominational groups, unions, fraternal or athletic groups, or [...] minutes do you engage in exercise at th is 20 min 05/26/2021 level? Stress Answer [...] place to sleep or slept in a custodial (including now)? Education Answer Date Recorded What is the highest level of school you have High school [employer] 03/21/2020 completed or the highest degree you have received? Estimated Date of Delivery Comments Yes 01/21/2022 Based on last menstr ual period of 04/16/2021 (Within Days) Sex Assigned at Date Recorded Not on file Last Filed Vital Signs Vital Sign Reading Time Taken Comments Blood Pressure 118/68 09/08/2021 1:48 PM CDT Pulse 102 05/06/2021 4:33 PM ELEMENTARY SCHOOL TEACHER'S AIDE Temperature 37.3 ??C (99.2 ??F) 05/06/2021 4:33 PM ELEMENTARY SCHOOL TEACHER'S AIDE Respiratory Rate 16 05/06/2021 4:33 PM ELEMENTARY SCHOOL TEACHER'S AIDE Oxygen Saturation 99% 10/27/2020 3:32 PM CDT Inhaled Oxygen Concentration - - Weight 85.3 kg (188 lb 1.6 oz) 09/08/2021 1:48 PM CDT Height 165 cm (5' 4.96) 05/26/2021 12:43 PM ELEMENTARY SCHOOL TEACHER'S AIDE Body Mass Index 31.34 05/26/2021 12:43 PM ELEMENTARY SCHOOL TEACHER'S AIDE Plan of Treatment Health Maintenance Due Date Last Done Comments Pap Smear 1989 COVID-19 Vaccine (#1) 1989 Asthma Action Plan 1994 Asthma Control Test 05/06/2022 05/06/2021 Pneumococcal Vaccine: Pediatrics Aged Out 05/27/2012 No longer eligible based on (0 to 5 Years) and At-Risk patie nt's age to complete Patients (6 to 64 Years) this to pic HPV Vaccines Aged Out No longer eligib le based on patient's age to complete this topic Goals Goal Patient Goal Associated Recent Patient-Stated? Author Type Problems Progress secure housing General Yes Melissa Coronado, [place], SUBSTANCE ABUSE NURSE, CLASSROOM INSTRUCTIONAL AIDE Note: Formatting of this note might be d ifferent from the original. - has applied for several housing lists; waiting to hear back, wants to be near family Quit using tobacco (cigarettes, Tobacco Use No Melissa Coronado, [place], SUBSTANCE ABUSE NURSE, smokeless, etc) CLASSROOM INSTRUCTIONAL AIDE Note: Formatting of this note might be d ifferent from the original. Will use nicorette gum in case of breakt hrough craving. Will find some candy or suckers to use d uring group to occupy her hands/oral fixation Insurance Payer Benefit Plan / Subscriber ID Effective Dates Phone Addre ss Type Group BCBS [place] [facility] [id number] 2018-Present [address] [address] [place] [address] Care Teams Concrete Journeyman Relationship Specialty Start Date End Date None, Pcp PCP - General Pit Slagman 02/06/19 [address] [place] [address]
--- OUTSIDE RECORDS SUMMARY | 2022-01-14 01:42 | XMS_ITS | Encounter Summary ---
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 Do you belong [...] on file documented as of this encounter Patient Instructions Patient InstructionsWicho Escoto LPN - 10/14/2021 11:56 AM CDT OB25 GCT Glucose Challenge Test We will check for gestational diabetes at your next visit. Please plan to be at this appointment forat least one hour. When you check in for your appointment, staff will give you a bottle of Glucola (a sugary drink). You can eat normally BEFORE your appointment, however eating sugary foods just before the testing isn't a good idea. You will not be able to drink, eat, or chew gum once you drink the Glucola, until after your blood is drawn. You should rest quietly in the lab area during the test. [facility] will call you at the correct time to have your blood drawn, one hour after drinking the Glucola. If your result is not normal, a nurse will call you about more testing. OB10 Results IF you had lab tests today, or an ultrasound, we will talk about your results with you at your next routine OB visit and/or they will be sent to you on [employer]. We will let you know if any of the results are abnormal, or more testing is needed. Who to Call Please call the OBGYN department at [phone] if you have vaginal bleeding, vaginal spotting, abnormal vaginal discharge, or have any questions/concerns. OB Concerns [facility] Center: [phone]. Because of COVID19, you MUST call before coming to the Center. CALL - When you have painful, regular contractions every 5 minutes for at least 1 hour without stopping. You may have been given instructions on when you should call based on how often you are having contractions. In general, we are looking for contractions that are every 3-4 minutes, from the start of one contraction to the start of the next contraction. They will usually last 45-60 seconds. CALL - If your bag of water breaks. Sometimes there is a big gush of fluid, and sometimes it is sophia little bit that comes out constantly. Don't wait for contractions to start before you call. CALL - If you have vaginal bleeding that is continuous and as heavy as a period. It is normal to pass some blood with mucus before you go into labor. This is called bloody show orthe mucus plug. You do not need to call for this. CALL - If your baby moves much less one day than it did the day before. Before you call, try eating something or drinking something sweet, like fruit juice. You should lie on your left side and count each movement for 1 hour. Call if there are less than 4 movements in 1 hour. CALL - If you are having bad abdominal pain. Kick Counts You should begin performing regular kick counts starting at 28 weeks. Take 1 hour out of the day when your baby is normally moving and concentrate on your baby's movement. You should feel at least 4 movements in one hour. Movements can include a kick, rub, hiccup, push, tap, or position change. If you don't feel at least 4 movements, try eating something or drinking something sweet, like fruitjuice. Lie on your left side and feel for your baby again. If you still don't feel at least 4 movements in that hour, please contact the OBGYN clinic at [phone] during business hours (Tuesday-Tuesday, 8-5pm) or the Center at [phone] after business hours. Classes and Preparation -- Classes fill up fast! We suggest that you register around 24 weeks of . [place] online for in-person group classes: https://www.CrayonPixeled.org/classes-events/search-results/?[email or web address] --One-to-one classes, instruction with only you, your partner or family member or members, and the educator, are available. If you are interested, please ask your provider about ordering this for you. -- [employer] offers anytime, anywhere, parent education designed to give you convenient access to valuable, research-based information on care, labor and , care, , and care, including lots of videos! [employer] can also provide you with unique tools like a kick counter, contraction timer, personal journal, and more. How to get access to [employer]: [place] for the program by going to: [email or web address]/[email or web address] HospitalProNerveOhioHealth Van Wert HospitalMaternityApp _[email or web address] You will then receive an email from [email or web address] providing you with your login and password information. Please note: The email will come from [facility] and not [facility]. If you do not receive a confirmation, be sure to check your email's [employer] folder. After you have created your account, you can access [employer] in 2 ways: Download the free mobile talia from your talia store. Search ???[employer].?? or Login on the [employer] website: [email or web address]. --In-person Center tours are on hold due to the pandemic. Here is a link to a short YouTube video tour of our beautiful Center: [email or web address]://[email or web address]/[email or web address] Get the COVID-19 vaccine! COVID in can cause serious, even life-threatening, complications for you and your . Millions of people have now been vaccinated, and there's no sign of danger to people or to their babies. When you, your partner, and other family members get the vaccine, you are protecting not only yourselves, but the baby as well. In October 2020, The [employer] (ACOG) released recommendations that ALL eligible persons, including people and people who are breast feeding, receive a COVID-19 vaccine or vaccine series: https://www.acog.org/womens-health/faqs/yfegpmfkelf-dmikh-21-hizvzhqrf-osl-uiauw tfeeding?utm_source=redirect&utm_medium=web&utm_campaign=int For more technical information on that recommendation: https://www.acog.org/clinical/clinical-guidance/practice-advisory/articles//uqzmy-17-pbfkjbmbjsd-rxfsvalxqdtnxc-liv-yekczlkyy-gynecologic-care Looking for even more information on the COVID vaccine in ?: [employer] https://www.Medical Referral Source/?mc_cid=[id number]&mc_eid=544m9c9811 [facility] YouTOonair Channel https://[email or web address]-[email or web address] The [facility] https://www.cdc.gov/coronavirus/2019-ncov/vaccines/recommendations/.htm l The Society for Maternal Medicine https://www.highriskpregnancyinfo.org/covid-19 [facility] COVID-19 Vaccine Information https://www.olmmed.org/autqx-70-ssdzejownje/qencm-17-kvcyoiu-information - For information on other COVID vaccination options in [facility]: Https://www.[facility]/covid/vaccine GENERAL COVID-19 RECOMMENDATIONS Wear a surgical mask. Masks should be worn inside in public places. Wash your hands often with soap and water for at least 20 seconds. If you can't use soap and water, please use alcohol-based hand digital performance analyst, like Purell. Cough into your elbow, NOT your hands. Avoid touching your eyes, nose, and mouth. Avoid being around people who are sick. If you are sick, please stay home from school, work, and other activities. If you are sick or have had contact with a person who has COVID-19: Call the LOG LOADER HELPER Nurse Triage line at [phone] during normal clinic hours. If need immediate emergency care (for example: shortness of breath) after clinic hours: Use the [facility] Emergency Room. COVID Testing Starting 05.11.21 ALL patients will be screened for COVID-19. Testing will usually happen around 38 weeks gestation - about 2 weeks before your due date. The only patients who do not need this testing are those who have had COVID in the last 3 months. COVID testing may occur earlier if we are planning an earlier delivery. COVID testing for planned sections will happen 3-5 days before delivery. VISITOR POLICY for manager life Patients Your visitors/support people cannot be currently in quarantine or isolation. This is defined by the CDC guidelines COVID-19 Quarantine and Isolation CDC https://www.cdc.gov/coronavirus/2019-ncov/your-health/quarantine-isolation.html BirthCenter TWO adults may be with you for your stay on Labor and Delivery. These two people MUST be the SAME two people all through your stay. The names of these two people will be given to Center security so that they can be checked in and out by them. After you deliver, ONE person may stay with you overnight on the BirthCenter after visiting hours are over. Your second person is welcome to return during visiting hours. A Certified Accounting Systems Manager may also be with you during your labor and delivery on the Center, however they must leave after the delivery. Clinic visits TWO people may come with you for your clinic appointments. ONE adult may come with you for your anatomy ultrasound at around 20 weeks of . NO children under 12 years old permitted at clinic visits. Your baby can come with you to appointments in the clinic with the [] consultants. Up to TWO adults may come with you for one-to-one classes. Instructions for your Clinic Visits: If you have a fever, cough, body aches, a hard time catching your breath, or have been around someone who has COVID-19, and have not yet been COVID tested: Call us before you come to the clinic at [phone]. DO NOT COME to the clinic until you call, even if you have an appointment. Surgical masks must be worn while inside the [facility]. If you don't have one, don't worry! We'll give you one at the door. If you have tested positive for COVID: Call us before you come to the clinic at [phone]. Please understand that we may reschedule your clinic visit to another time. Instructions for your BirthCenter (Labor and Delivery) Care: Call us first before coming to the hospital - [phone]. DO NOT come to the BirthCenter without calling. IF you have COVID and need to come to the Center: Remind staff of your positive COVID-19 test when you call before you come. Come in the [facility] doors, like you do for appointments. DO NOT come into the building through the Emergency Room. Both you and the people who come with you are required to wear a surgical face mask when you come [facility]. It is a requirement to wear a surgical mask outside of your Center room. All of the people in your room are required to wear a surgical mask whenever staff are present. BRING everything with you when you come in, including: Your infant car seat. [place] for meals for the people who come with you, and for other needs. Personal items. Your inhaler, like Albuterol/Ventolin/Proventil, if you use one for asthma or allergies. Please note: Per [facility] policy, we do not allow videotaping of deliveries or resuscitations. documented in this encounter Plan of Treatment Not on filedocumented as of this encounter Goals Goal Patient Goal Associated Recent Patient-Stated? Author Type Problems Progress secure housing General Yes Melissa Coronado, DNP, COCKTAIL SERVER, TESTING DIRECTOR Note: Formatting of this note might be d ifferent from the original. - has applied for several housing lists; waiting to hear back, wants to be near family Quit using tobacco (cigarettes, Tobacco Use No Melissa Coronado, JUAN [place]IEGO, COCKTAIL SERVER, smokeless, etc) TESTING DIRECTOR Note: Formatting of this note might be d ifferent from the original. Will use nicorette gum in case of breakt hrough craving. Will find some candy or suckers to use d uring group to occupy her hands/oral fixation documented as of this encounter Visit Diagnoses Diagnosis Attention deficit hyperactivity disorder (ADHD), combined type - Primary documented in this encounter Care Teams Instructional Support Technician Relationship Specialty Start Date End Date None, Pcp PCP - General Green Ware Caster [birth year][address] [place] [id number] documented as of this encounter
--- OUTSIDE RECORDS SUMMARY | 2022-01-14 01:42 | XMS_ITS | Encounter Summary ---
:1990 Author Organization [facility] Address [address] [place] [address] Care Team Providers Name Role Phone None, Pcp Primary Care Provider Unavailable Encounter Details Date Type Department Care Team Description 06/25/2021 Lab [facility] 10 weeks gestation of pregna ncy; [address] Supervision of high risk pre gnancy, antepartum; [place] [address] History of hepatitis C; [phone] Opioid use diso rder, moderate, in early remission, on maintenance therapy (HCC) Social History Tobacco Use Types Packs/Day Years [...] 03/21/2020 relatives? How often do you attend voodoo or islam Not asked 03/21/2020 services? Do you belong to any clubs or organizations such as Argelia schilling 03/21/2020 voodoo groups, unions, fraternal or athletic groups, or [...] place to sleep or slept in a care home (including now)? Education Answer Date Recorded What is the highest level of school you have High school gra [employer] 03/21/2020 completed or the highest degree you have received? Sex Assigned at Date Recorded Not on file COVID-19 Exposure Response Date Recorded In the last month, have you been in contact with No / Unsure 05/26/2021 1:11 PM FEED MANAGEMENT ADVISOR someone who was confirmed or suspected to have Coronavirus / COVID-19? documented as of this encounter Plan of Treatment Not on filedocumented as of this encounter Goals Goal Patient Goal Associated Recent Patient-Stated? Author Type Problems Progress secure housing General Yes Melissa Coronado, DNP, MENTAL HEALTH PRACTITIONER, LOAN ASSISTANT Note: Formatting of this note might be d ifferent from the original. - has applied for several housing lists; waiting to hear back, wants to be near family Quit using tobacco (cigarettes, Tobacco Use No Melissa Coronado, DNP, MENTAL HEALTH PRACTITIONER, smokeless, etc) LOAN ASSISTANT Note: Formatting of this note might be d ifferent from the original. Will use nicorette gum in case of breakt hrough craving. Will find some candy or suckers to use d uring group to occupy her hands/oral fixation documented as of this encounter Procedures Procedure Name Priority Date/Time Associated Comments Diagnosis BUPRENORPHINE Routine 06/25/2021 4:05 PM Opioid use Results for this CONFIRMATION CDT disorder, moderate, procedur e are in in early remission, the resu lts on maintenance section. therapy (HCC) AMPHETAMINE CONF Routine 06/25/2021 4:05 PM Opioid use Resul ts for this CDT disorder, moderate, procedur e are in in early remission, the resu lts on maintenance section. therapy (HCC) URINE SCREEN Routine 06/25/2021 4:05 PM 10 weeks gestation Res ults for this CDT of procedure are i n the results section. RAPID DRUG SCREEN, Routine 06/25/2021 4:05 PM Opioid use Res ults for this URINE CDT disorder, moderate, procedur e are in in early remission, the resu lts on maintenance section. therapy (HCC) ANTIBODY SCREEN (GEL) Routine 06/25/2021 3:54 PM 10 weeks gest ation Results for this CDT of procedure are i n the results section. [id number] Routine 06/25/2021 3:54 PM 10 weeks gestation Res ults for this CDT of procedure are in Supervision of high the resu lts risk , section. antepartum HCV RNA DETECT/QUANT, Routine 06/25/2021 3:54 PM 10 weeks gest ation Results for this S CDT of procedure are in History of the results hepatitis C section. RUBELLA ANTIBODY, IGG Routine 06/25/2021 3:54 PM 10 weeks gest ation Results for this CDT of procedure are i n the results section. RPR Routine 06/25/2021 3:54 PM 10 weeks gestation Res ults for this CDT of procedure are i n the results section. HIV-1 AND HIV-2 Routine 06/25/2021 3:54 PM 10 weeks gestation Results for this ANTIBODIES CDT of procedure are i n the results section. HEPATITIS B SURFACE Routine 06/25/2021 3:54 PM 10 weeks gestat ion Results for this ANTIGEN CDT of procedure are i n the results section. CBC Routine 06/25/2021 3:54 PM 10 weeks gestation Res ults for this CDT of procedure are i n the results section. HEMOGLOBIN A1C Routine 06/25/2021 3:54 PM 10 weeks gestation R esults for this CDT of procedure are i n the results section. documented in this encounter Results Buprenorphine conf. (06/25/2021 4:05 PM CDT) [facility] gist Method Time Signature Buprenorphine see below 07/06/2021 [facility] 1:55 PM [facility] Comment: See scanned [facility] Report. Specimen Anatomical Collection Method Collection Time Receive d Time (Source) Location / / Volume Laterality 06/25/2021 4:05 PM 5:05 CDT PM CDT Emmanuel Damon MD LAB URINE ORDERABLES Performing Organization Address City/State/ZIP Code Phon e Number [facility] [address] [place] [address] Amphetamine Conf (06/25/2021 4:05 PM CDT) Patholo gist Method Time Signature Amphetamine see below 07/06/2021 [facility] Conf 1:55 PM [facility] Comment: See scanned [facility] Report. Specimen Anatomical Collection Method Collection Time Receive d Time (Source) Location / / Volume Laterality 06/25/2021 4:05 PM 5:05 CDT PM CDT Emmanuel Damon MD LAB URINE ORDERABLES Performing Organization Address City/State/ZIP Code Phon e Number [facility] [address] [place] [address] Urine Screen (06/25/2021 4:05 PM CDT) Analysis Performed At Patho logist Time Signature Urine Screen No Growth 06/27/2021 [facility] 6:23 AM [facility] Specimen Anatomical Collection Method Collection Time Receive d Time (Source) Location / / Volume Laterality Urine (Urine, 06/25/2021 4:05 PM 06/26/19 22 5:05 Clean Catch) CDT PM CDT Comment: Urine Screen Narrative [facility] - 06/09 6:23 AM CDT Patient does not have an Amoxicillin or PCN allergy Emmanuel Damon MD LAB MICROBIOLOGY - GENERAL O RDERABLES Performing Organization Address City/State/ZIP Code Phon e Number [facility] [address] [place] [address] (ABNORMAL) Rapid drug screen, urine (lab staff release/collect) (06/25/2021 4:05 PM CDT) athologist Signature Rapid Urine ----- 06/25/2021 [facility] Drug Screen 4:08 PM [facility]T [facility] Comment: This is a screening test. ??Positive res ults should be considered presumptive and [facility]. This test is not for legal purposes - on medical. Tetrahydrocannabinol NOT DETECTED Not Detected 06/25/2021 7: 10 [facility]T [facility] Phencyclidine, Mec NOT DETECTED Not Detected 06/25/2021 7:10 [facility] Cocaine NOT DETECTED Not Detected 06/25/2021 7:10 [facility] Methamphetamine NOT DETECTED Not Detected 06/25/2021 7:10 [facility] Opiates NOT DETECTED Not Detected 06/25/2021 7:10 [facility] Amphetamines DETECTED (A) Not Detected 06/25/2021 7:10 [facility] Comment: Sent to [facility] for GC/MS confirmation. Benzodiazepines NOT DETECTED Not Detected 06/25/2021 7:10 PM [facility] TCA, Urine NOT DETECTED Not Detected 06/25/2021 7:10 PM [facility] Methadone NOT DETECTED Not Detected 06/25/2021 7:10 PM [facility] Barbiturates NOT DETECTED Not Detected 06/25/2021 7:10 PM [facility] Oxycodone NOT DETECTED Not Detected 06/25/2021 7:10 PM [facility] Propoxyphene NOT DETECTED Not Detected 06/25/2021 7:10 PM [facility] Buprenorphine DETECTED (A) Not Detected 06/25/2021 7:10 PM [facility] Comment: Sent to [facility] for GC/MS confirmation. Detectable Levels ----- 06/25/2021 4:08 PM [facility] Comment: Amphetamines ?500 ng/ mL Barbiturates [...] Location / / Volume Laterality Urine (Urine, 06/25/2021 4:05 PM 06/26/19 22 5:05 Clean Catch) CDT PM CDT Emmanuel Damon MD LAB URINE ORDERABLES Performing Organization Address City/[facility]/ZIP Code Phon e Number [facility] [address] [place] [phone] Antibody Screen (Gel) (06/25/2021 3:54 PM CDT) P athologist Signature Antibody NEG 06/25/2021 [facility] Screen 6:23 PM CDT [facility] Specimen Anatomical Collection Method Collection Time Receive d Time (Source) Location / / Volume Laterality Blood (Blood, 06/25/2021 3:54 PM 06/26/19 22 5:05 Venous) CDT PM CDT Emmanuel Damon MD LAB BLOOD BANK TEST ORDERABL ES Performing Organization Address City/State/ZIP Code Phon e Number [facility] [address] [place] [phone] CBC ([facility]) (06/25/2021 3:54 PM CDT) P athologist Signature WBC 5.6 3.5 - 10.5 06/25/2021 [facility] K/uL 5:57 PM CDT [facility] RBC 4.37 3.90 - 06/25/2021 [facility] 5.00 M/uL 5:57 PM [facility] Hemoglobin 12.6 12.0 - 06/25/2021 [facility] 15.5 g/dL 5:57 PM [facility] Hematocrit 38.0 35.0 - 06/25/2021 [facility] 44.0 % 5:57 PM [facility] Platelets 242 150 - 450 06/25/2021 [facility] K/uL 5:57 PM [facility] MCV 87.0 81.6 - 06/25/2021 [facility] 98.3 fL 5:57 PM [facility]T [facility] MCH 28.8 26.0 - 06/25/2021 [facility] 32.0 pg 5:57 PM CDT [facility] MCHC 33.2 32.0 - 06/25/2021 [facility] 36.0 g/dL 5:57 PM [facility] RDW 13.2 11.9 - 06/25/2021 [facility] 15.5 % 5:57 PM [facility] NRBC %, 0 % 06/25/2021 [facility] Automated 5:57 PM [facility] Comment: . NRBC Absolute, Autmated 0.00 06/25/2021 5:57 PM CDT [facility] Comment: 0-4 Days Ref Range ?? 0.01 -0.02 K/uL >=5 Days Ref Range ?? 0.00 K/uL Specimen Anatomical Collection Method Collection Time Receive d Time (Source) Location / / Volume Laterality Blood (Blood, 06/25/2021 3:54 PM 06/26/19 22 5:05 Venous) CDT PM CDT Emmanuel Damon MD LAB BLOOD ORDERABLES Performing Organization Address City/State/ZIP Code Phon e Number [facility] [address] [place] [phone] Rubella antibody, IgG (06/25/2021 3:54 PM CDT) P athologist Signature Rubella IgG REACTIVE SEE BELOW 06/25/2021 [facility] 7:24 PM [facility] Comment: A reactive result indicates either prior exposure to the virus or response to vaccination. The presence of rubella IgG suggests immunity against rubella. The results from this or any other diagn ostic test should be used and interpreted only in the context of the overall clinical picture. Heterophilic antibodies in serum or plas ma samples may cause interference in immunoassays. ??Exposure to animal antigens, either in the environment or as part of treatment or imaging procedures, may have circulating anti-an imal antibodies present. These antibodies may interfere with the assay reagents to produce unreliable results. ??Results which are inconsistent with clinical observations indicate the need for additional testing. Specimen Anatomical Collection Method Collection Time Receive d Time (Source) Location / / Volume Laterality Blood (Blood, 06/25/2021 3:54 PM 06/26/19 22 5:05 Venous) CDT PM CDT Emmanuel Damon MD LAB BLOOD ORDERABLES Performing Organization Address City/State/ZIP Code Phon e Number [facility] [address] [place] [address] RPR (06/25/2021 3:54 PM CDT) athologist Signature RPR NON-REACTI Non-reacti 06/25/2021 [facility] VE ve 6:36 PM CDT [facility] Specimen Anatomical Collection Method Collection Time Receive d Time (Source) Location / / Volume Laterality Blood (Blood, 06/25/2021 3:54 PM 06/26/19 22 5:05 Venous) CDT PM CDT Emmanuel Damon MD LAB BLOOD ORDERABLES Performing Organization Address City/[facility] Code Phon e Number [facility] [address] [place] [address] HIV-1 and HIV-2 antibodies (06/25/2021 3:54 PM CDT) athologist Signature HIV-1/HIV-2 NON-REACTI Non-Reacti 06/25/2021 [facility] VE ve 7:24 PM CDT [facility] Comment: The results from this or any other diagn ostic test should be used and interpreted only in the context of the overall clinical picture. Heterophilic antibodies in serum or plas ma samples may cause interference in immunoassays. ??Exposure to animal antigens, either in the environment or as part of treatment or imaging procedures, may have circulating anti-an imal antibodies present. These antibodies may interfere with the assay reagents to produce unreliable results. ??Results which are inconsistent with clinical observations indicate the need for additional testing. Specimen Anatomical Collection Method Collection Time Receive d Time (Source) Location / / Volume Laterality Blood (Blood, 06/25/2021 3:54 PM 06/26/19 22 5:05 Venous) CDT PM CDT Emmanuel Damon MD LAB BLOOD ORDERABLES Performing Organization Address City/[facility]/ZIP Code Phon e Number [facility] [address] [place] [address] Hepatitis B surface antigen (06/25/2021 3:54 PM CDT) Patholo gist Method Time Signature Hep. Bs NON-REACTI Non-Reacti 06/25/2021 [facility] Antigen VE ve 7:24 PM CDT [facility] (HBsAg) [facility] Comment: The results from this or any other diagn ostic test should be used and interpreted only in the context of the overall clinical picture. Heterophilic antibodies in serum or plas ma samples may cause interference in immunoassays. ??Exposure to animal antigens, either in the environment or as part of treatment or imaging procedures, may have circulating anti-an imal antibodies present. These antibodies may interfere with the assay reagents to produce unreliable results. ??Results which are inconsistent with clinical observations indicate the need for additional testing. Specimen Anatomical Collection Method Collection Time Receive d Time (Source) Location / / Volume Laterality Blood 06/25/2021 3:54 PM 5:05 CDT PM CDT Emmanuel Damon MD LAB BLOOD ORDERABLES Performing Organization Address City/State/ZIP Code Phon e Number [facility] [address] [place] [address] Hemoglobin A1c (06/25/2021 3:54 PM CDT) P athologist Signature Hemoglobin A1C 5.3 4.0 - 5.6 06/25/2021 [facility] % A1C 6:27 PM CDT [facility] Comment: Reference Range 4.0-5.6% is for non-preg nant adults >=18 yrs <5.6% ? Non-Diabetic 5.7-6.4% ??Increased risk of Diabetes >=6.5% ?Indicative of Diabetes <7.0% ? ADA goal for glycemic contro l Methodology may not detect all hemoglobi n variants which can affect A1c results. Method certified by National Glycohemoglobin Standardization Program. Specimen Anatomical Collection Method Collection Time Receive d Time (Source) Location / / Volume Laterality Blood (Blood, 06/25/2021 3:54 PM 06/26/19 5:05 Venous) CDT PM CDT Emmanuel Damon MD LAB BLOOD ORDERABLES Performing Organization Address City/State/ZIP Code Phon e Number [facility] [address] [place] [address] HCV RNA detect/quant, serum (06/25/2021 3:54 PM CDT) [facility] gist Method Time Signature HCV RNA Undetected Undetected 06/26/2021 [facility] Detect/Quant IU/mL 7:51 PM [facility]T [facility] , S Comment: Result in log IU/mL is Undetected. ADDITIONAL INFORMATIO N The quantification range of this assay i s 15 to 100,000,000 IU/mL (1.18 log to 8.00 log IU/mL). Test ing was performed using the seth HCV test ([employer] with the seth 6800 System. Test Performed by: [facility] [address] [place] [address] Office Support Associate: Benigno Selby M.D. Ph. D.; CLIA# [id number] Specimen Anatomical Collection Method Collection Time Receive d Time (Source) Location / / Volume Laterality Blood (Blood, 06/25/2021 3:54 PM 06/26/19 22 8:37 Venous) CDT PM CDT Emmanuel Damon MD LAB BLOOD ORDERABLES Performing Organization Address [facility]/ZIP Code Phon e Number [facility] see result attachment for specific address [id number] (06/25/2021 3:54 PM CDT) athologist Signature [id number] see below 06/30/2021 [facility] 12:26 AM CDT [facility] Comment: ? See scanned report Specimen Anatomical Collection Method Collection Time Receive d Time (Source) Location / / Volume Laterality Blood (Blood, 06/25/2021 3:54 PM 06/26/19 22 5:05 Venous) CDT PM CDT Emmanuel Damon MD LAB BLOOD ORDERABLES Performing Organization Address City/[facility]/ZIP Code Phon e Number [facility] [address] [place] [address] documented in this encounter Visit Diagnoses Diagnosis 10 weeks gestation of Supervision of high risk , ante History of hepatitis C Personal history of other infectious and parasitic disease Opioid use disorder, moderate, in early remission, on maintenance therapy (HCC) documented in this encounter Care Teams Table Tender Relationship Specialty Start Date End Date None, Pcp PCP - General Correctional Supervisor 02/06/19 [address] [place] [address] documented as of this encounter
--- OUTSIDE RECORDS SUMMARY | 2022-01-14 01:42 | XMS_ITS | Encounter Summary ---
:1990 Author Organization [facility] Address [address] [place] [id number] Care Team Providers Name Role Phone None, Pcp Primary Care Provider Unavailable Reason for Visit Reason Comments Routine Visit Encounter Details Date Type Department Care Team Description 07/23/2021 Routine [facility] Emmanuel Damon, 14 weeks gestation of [facility] (Primary Test Tech [address]) [address] [place] [address] [place], [place] [phone] [id number] Social History Tobacco Use Types Packs/Day Years [...] 03/21/2020 relatives? How often do you attend orthodox or jewish Not asked 03/21/2020 services? Do you belong to any clubs or organizations such as Argelia schilling 03/21/2020 orthodox groups, unions, fraternal or athletic groups, or [...] place to sleep or slept in a skilled nursing (including now)? Education Answer Date Recorded What is the highest level of school you have High school gra duate 03/21/2020 completed or the highest degree you have received? Sex Assigned at Date Recorded Not on file documented as of this encounter Patient Instructions Patient InstructionsChristie Avery LPN - 07/23/2021 2:00 PM CDT OB14 Results IF you had lab tests today, or an ultrasound, we will talk about your results with you at your next routine OB visit and/or they will be sent to you on [employer]. We will let you know if any of the results are abnormal, or more testing is needed. Who to Call Please call the OBGYN department at [phone] if you have vaginal bleeding, vaginal spotting, abnormal vaginal discharge, or have any questions/concerns. OB Concerns [facility] [place]: [phone]. Because of COVID19, you MUST call before [...] hour, please contact the OBGYN clinic at [phone] during business hours (Tuesday-Tuesday, 8-5pm) or the Center at [phone] after business hours. Classes and Preparation -- Classes fill up fast! We suggest that you register around 24 weeks of . [place] online for in-person group classes: [email or web address]/search-[email or web address] --One-to-one classes, instruction with only you, your partner or family member or members, and the educator, are available. If you are interested, please ask your provider about ordering this for you. -- Beat[employer] offers anytime, anywhere, parent education designed to give you convenient access to valuable, research-based information on care, labor and , care, , and care, including lots of videos! Beat[employer] can also provide you with unique tools like a kick counter, contraction timer, personal journal, and more. How to get access to Beat[employer]: [place] for the program by going to: [email or web address] [email or web address] [email or web address] _[email or web address] You will then receive an email from [email or web address] providing you with your login and password information. Please note: The email will come from [employer] and not [facility]. If you do not receive a confirmation, be sure to check your email's [employer] folder. After you have created your account, you can access Beat[employer] in 2 ways: Download the free mobile talia from your talia store. Search ???Beatrobo.?? or Login on the Beat[employer] website: [email or web address]. --In-person Center tours are on hold due to the pandemic. Here is a link to a short YouTube video tour of our beautiful Center: Https://www.youDocDoc.com/watch?v=[email or web address] ??? Get the COVID-19 vaccine! - COVID in can cause serious, even life-threatening, complications for you and your infant. - Millions of people have now been vaccinated, and there's no sign of danger to people or to their babies. - When you, your partner, and other family members get the vaccine, you are protecting not only yourselves, but the baby as well. - In October 2020, The [employer] College of Obstetricians and Gynecologists (ACOG) released recommendations that ALL eligible persons, including people and people who are breast feeding, receive aCOVID-19 vaccine or vaccine series: - https://www.acog.org/womens-health/faqs/cqqwjlxupyn-qtpyb-94-wjokkthtc-cxu-hwfea tfeeding?utm_source=redirect&utm_medium=web&utm_campaign=int - For more technical information on that recommendation: - https://www.acog.org/clinical/clinical-guidance/practice-advisory/articles//aoduc-11-txbhaofmkmn-aqyszglovxktla-igj-sncmscwze-gynecologic-care - Looking for even more information on the COVID vaccine in ?: - [place] ? ? https://www.TapDog.[employer]/?mc_cid=[email or web address]&mc_eid=[email or web address] - [facility] YouTube Channel ??? https://Busy Moosu.be/XC-bxarLQek - The [facility] ??? https://www.cdc.gov/coronavirus/2019-ncov/vaccines/recommendations/.htm l - The Society for Maternal Medicine ??? https://www.highriskpregnancyinfo.org/covid-19 - [facility] COVID-19 Vaccine Information ??? https://www.[facility].org/hfmyo-60-dcxdrwbcqxg/kltyg-03-fybeqog-information - For information on other COVID vaccination options in [facility]: ??? Https://www.[facility]/covid/vaccine ??? GENERAL COVID-19 RECOMMENDATIONS - Wear a surgical mask. Masks should be worn inside in public places. - Wash your hands often with soap and water for at least 20 seconds. If you can't use soap and water, please use alcohol-based hand wrapper off, like Purell. - Cough into your elbow, NOT your hands. - Avoid touching your eyes, nose, and mouth. - Avoid being around people who are sick. - If you are sick, please stay home from school, work, and other activities. - If you are sick or have had contact with a person who has COVID-19: - Call the HOTEL MANAGER Nurse Triage line at [phone] during normal clinic hours. - If need immediate emergency care (for example: shortness of breath) after clinic hours: - Use the [facility] Emergency Room. ??? COVID Testing - Starting 05.11.21 ALL patients will be screened for COVID-19. - Testing will usually happen around 38 weeks gestation - about 2 weeks before your due date. ??? The only patients who do not need this testing are those who have had COVID in the last 3 months. - COVID testing may occur earlier if we are planning an earlier delivery. - COVID testing for planned sections will happen 3-5 days before delivery. ??? VISITOR POLICY for billing customer service representative Patients - Your visitors/support people cannot be currently in quarantine or isolation. - This is defined by the CDC guidelines ??? COVID-19 Quarantine and Isolation CDC https://www.cdc.gov/coronavirus/2019-ncov/your-health/quarantine-isolation.html - BirthCenter - TWO adults may be with you for your stay on Labor and Delivery. - These two people MUST be the SAME two people all through your stay. - The names of these two people will be given to Center security so that they can be checked in and out by them. - After you deliver, ONE person may stay with you overnight on the BirthCenter after visiting hours are over. ??? Your second person is welcome to return during visiting hours. - A Certified Advertising Solicitor may also be with you during your labor and delivery on the Center, howeverthey must leave after the delivery. - Clinic visits - TWO people may come with you for your clinic appointments. - ONE adult may come with you for your anatomy ultrasound at around 20 weeks of . - NO children under 12 years old permitted at clinic visits. - Your baby can come with you to appointments in the clinic with the [] consultants. - Up to TWO adults may come with you for one-to-one classes. ??? Instructions for your Clinic Visits: - If you have a fever, cough, body aches, a hard time catching your breath, or have been around someone who has COVID-19, and have not yet been COVID tested: - Call us before you come to the clinic at [phone]. - DO NOT COME to the clinic until you call, even if you have an appointment. - Surgical masks must be worn while inside the [facility]. If you don't have one, don'tworry! We'll give you one at the door. - If you have tested positive for COVID: - Call us before you come to the clinic at [phone]. - Please understand that we may reschedule your clinic visit to another time. ??? Instructions for your BirthCenter (Labor and Delivery) Care: - Call us first before coming to the hospital - [phone]. - DO NOT come to the BirthCenter without calling. - IF you have COVID and need to come to the Center: - Remind staff of your positive COVID-19 test when you call before you come. - Come in the [facility] doors, like you do for appointments. - DO NOT come into the building through the Emergency Room. - Both you and the people who come with you are required to wear a surgical face mask when you come to the hospital. - It is a requirement to wear a surgical mask outside of your Center room. - All of the people in your room are required to wear a surgical mask whenever staff are present. - BRING everything with you when you come in, including: - Your infant car seat. - [place] for meals for the people who come with you, and for other needs. - Personal items. - Your inhaler, like Albuterol/Ventolin/Proventil, if you use one for asthma or allergies. documented in this encounter Plan of Treatment Not on filedocumented as of this encounter Goals Goal Patient Goal Associated Recent Patient-Stated? Author Type Problems Progress secure housing General Yes Melissa Coronado, DNP, SUPERVISOR ASBESTOS REMOVAL, ASSISTANT CROSS COUNTRY COACH Note: Formatting of this note might be d ifferent from the original. - has applied for several housing lists; waiting to hear back, wants to be near family Quit using tobacco (cigarettes, Tobacco Use No Melissa Coronado, DNP, SUPERVISOR ASBESTOS REMOVAL, smokeless, etc) ASSISTANT CROSS COUNTRY COACH Note: Formatting of this note might be d ifferent from the original. Will use nicorette gum in case of breakt hrough craving. Will find some candy or suckers to use d uring group to occupy her hands/oral fixation documented as of this encounter Visit Diagnoses Diagnosis 14 weeks gestation of - Primar y documented in this encounter Care Teams Oracle Identity Management Consultant Relationship Specialty Start Date End Date None, Pcp PCP - General Communication Electronic Technician 02/06/19 [address] [place] [address] documented as of this encounter
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
--- OUTSIDE RECORDS SUMMARY | 2022-01-14 01:42 | XMS_ITS | Encounter Summary ---
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 How often do you attend druze or holiness Not asked 03/21/2020 services? 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 We will let you know if any of the results are abnormal, or more testing is needed. Who to Call Please call the OBGYN department at [phone] if you have vaginal bleeding, vaginal spotting, abnormal vaginal discharge, or have any questions/concerns. OB Concerns [facility] Center: [phone]. Because of COVID19, you MUST call before [...] hour, please contact the OBGYN clinic at [phone] during business hours (Tuesday-Tuesday, 8-5pm) or the Center at [phone] after business hours. Classes and Preparation -- Classes fill up fast! We suggest that you register around 24 weeks of . Howard online for in-person group classes: [email or web address].Carmineed.org/classes-events/search-results/?[email or web address] --One-to-one classes, instruction with only you, your partner or family member or members, and the educator, are available. If you are interested, please ask your provider about ordering this for you. -- [employer] offers anytime, anywhere, parent education designed to give you convenient access to valuable, research-based information on care, labor and , care, , and care, including lots of videos! [employer] can also provide you with unique tools like a kick counter, contraction timer, personal journal, and more. How to get access to [employer]: Howard for the program by going to: [email or web address] [email or web address] [email or web address] _[email or web address] You will then receive an email from [email or web address] providing you with your login and password information. Please note: The email will come from [employer] and not [facility]. If you do not receive a confirmation, be sure to check your email's Prim Laundry folder. After you have created your account, you can access [employer] in 2 ways: Download the free mobile talia from your talia store. Search ???[employer]?? or Login on the [employer] website: [email or web address]. --In-person Center tours are on hold due to the pandemic. Here is a link to a short YouTube video tour of our beautiful Center: Https://www.youYoomlyube.com/watch?v=[email or web address] ??? Get the COVID-19 vaccine! - COVID [...] as well. - In October 2020, The [place] College [employer]st[employer] and Gynecologists (ACOG) released recommendations that ALL eligible persons, including people and people who are breast feeding, receive aCOVID-19 vaccine or vaccine series: - https://www.acog.org/womens-health/faqs/nohwzpbgwgj-fqyrg-83-ideisqjqu-xfc-tbyxl tfeeding?utm_source=redirect&utm_medium=web&rim_campaign=int - For more technical information on that recommendation: - https://www.acog.org/clinical/clinical-guidance/practice-advisory/articles//okcma-57-rhtkvjtbvzz-fqkimpakgdqpml-dfz-vrlbtvrnh-gynecologic-care - Looking for even more information on the COVID vaccine in ?: - Netshow.me ? ? https://www.Simmery/?mc_cid=189319oe99&mc_eid=011n8y8936 - [facility] [facility] ??? https://Cleartrip/XC-bxarLQek - The [facility] ??? https://www.cdc.gov/coronavirus/2019-ncov/vaccines/recommendations/.htm l - The Society for Maternal Medicine ??? https://www.highriskpregnancyinfo.org/covid-19 - [facility] COVID-19 Vaccine Information ??? https://www.oled.org/wtsso-34-oblztehajbd/pvklt-43-llryhbw-information - For information on other COVID vaccination options in [facility]: ??? Https://www.[facility].gov/covid/vaccine ??? GENERAL COVID-19 RECOMMENDATIONS - Wear a surgical mask. Masks should be worn inside in public places. - Wash your hands often with soap and water for at least 20 seconds. If you can't use soap and water, please use alcohol-based hand front sight attacher, like Purell. - Cough into your elbow, NOT your hands. - Avoid touching your eyes, nose, and mouth. - Avoid being around people who are sick. - If you are sick, please stay home from school, work, and other activities. - If you are sick or have had contact with a person who has COVID-19: - Call the [facility] Nurse Triage line at [phone] during normal clinic hours. - If need immediate emergency care (for example: shortness of breath) after clinic hours: - Use the [facility] Emergency Room. ??? COVID Testing - Starting [...] days before delivery. ??? VISITOR POLICY for credit resolution representative Patients - Your visitors/support people cannot be currently in quarantine or isolation. - This is defined by the CDC guidelines ??? COVID-19 Quarantine and Isolation [facility] https://www.cdc.gov/coronavirus/2019-ncov/your-health/quarantine-isolation.html - BirthCenter - TWO adults may [...] return during visiting hours. - A Certified Flower Grower may also be with you during your [...] before you come to the clinic at [phone]. - DO NOT COME to the clinic until you call, even if you have an appointment. - Surgical masks must be worn while inside the [facility]. If you don't have one, don'tworry! We'll give you one at the door. - If you have tested positive for COVID: - Call us before you come to the clinic at [phone]. - Please understand that we may reschedule your clinic visit to another time. ??? Instructions for your BirthCenter (Labor and Delivery) Care: - Call us first before coming to the hospital - [phone]. - DO NOT come to the BirthCenter [...] for asthma or allergies. Please note: Per [facility] policy, we do not allow videotaping of deliveries or resuscitations. I completed your Workforce form recommending that you should not be required to work or seek employment during the time frame. documented in this encounter Progress Notes Joseph Hernandez DO - 07/27/2021 4:45 PM CDT 14w4d Patient's complicated history is reviewed. A proof of letter is provided. A letter to her psychiatrist is provided allowing her to continue her complicated medication regimen. Perinatology (Dr. Shea) is scheduled. Patient asked to be excused from Workforce given the complexity of her , and other complicated medical issues. The excuse is provided. Patient will continue all her current medications for opoid addiction, ADHD and depression. She is actively under the care of a psychiatrist. Bedside US confirms a viable IUP. documented in this encounter Plan of Treatment Not on filedocumented as of this encounter Goals Goal Patient Goal Associated Recent Patient-Stated? Author Type Problems Progress secure housing General Yes Melissa Coronado, JUAN DIEGO, DESIGN PRINTING MACHINE SET UP OPERATOR, MANAGER SERVICES Note: Formatting of this note might be d ifferent from the original. - has applied for several housing lists; waiting to hear back, wants to be near family Quit using tobacco (cigarettes, Tobacco Use No Melissa Coronado, JUAN DIEGO, DESIGN PRINTING MACHINE SET UP OPERATOR, smokeless, etc) MANAGER SERVICES Note: Formatting of this note might be d ifferent from the original. Will use nicorette gum in case of breakt hrough craving. 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
--- OUTSIDE RECORDS SUMMARY | 2022-01-14 01:42 | XMS_ITS | Encounter Summary ---
:1990 Author Organization [facility] Address [address] [place] [address] Care Team Providers Name Role Phone None, Pcp Primary Care Provider Unavailable Reason for Visit Reason Onset Date Comments +MEDTOX 09/02/2021 Encounter Details Date Type Department Care Team Description 09/02/2021 Telephone [facility] Lisa Martinez MD +[facility] It Administrator [address] [facility] [address] [place] [address] [place] [address] [phone] Social History Tobacco Use Types Packs/Day Years [...] 03/21/2020 relatives? How often do you attend spiritism or baptism Not asked 03/21/2020 services? Do you belong to any clubs or organizations such as Argelia schilling 03/21/2020 spiritism groups, unions, fraternal or athletic groups, or [...] place to sleep or slept in a correction (including now)? Education Answer Date Recorded What is the highest level of school you have High school gra duate 03/21/2020 completed or the highest degree you have received? Sex Assigned at Date Recorded Not on file documented as of this encounter Miscellaneous Notes Telephone Encounter - Vanessa Yeager RN - 09/02/2021 12:58 PM CDT +Medtox confirmation for Buprenorphine and norbuprenorphine. Called [facility] child protection andreported to best worker Jana. Patient had positive medtox for Amphetamine, Buprenorphine, and Norbuprenorphine on 06/25/2021. Both reports were faxed to [facility] at [phone] Attn: Jana. No further concerns. documented in this encounter Plan of Treatment Not on filedocumented as of this encounter Goals Goal Patient Goal Associated Recent Patient-Stated? Author Type Problems Progress secure housing General Yes Melissa Coronado, DNP, PADDED PRODUCTS FINISHER, CLINICAL STATISTICS MANAGER Note: Formatting of this note might be d ifferent from the original. - has applied for several housing lists; waiting to hear back, wants to be near family Quit using tobacco (cigarettes, Tobacco Use No Melissa Coronado, DNP, PADDED PRODUCTS FINISHER, smokeless, etc) CLINICAL STATISTICS MANAGER Note: Formatting of this note might be d ifferent from the original. Will use nicorette gum in case of breakt hrough craving. Will find some candy or suckers to use d uring group to occupy her hands/oral fixation documented as of this encounter Visit Diagnoses Not on filedocumented in this encounter Care Teams Director Of Brand Marketing Relationship Specialty Start Date End Date None, Pcp PCP - General Medical Staff Manager 02/06/19 [address] [place] [address] documented as of this encounter
--- OUTSIDE RECORDS SUMMARY | 2022-01-14 01:42 | XMS_ITS | Encounter Summary ---
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 How often do you attend baptist or latter-day Not asked 03/21/2020 services? Do you belong to any clubs or organizations such as Argelia schilling 03/21/2020 baptist groups, unions, fraternal or athletic groups, or [...] place to sleep or slept in a senior care (including now)? Education Answer Date Recorded What [...] secure housing General Yes Melissa Coronado, DNP, DELINQUENCY PREVENTION SOCIAL WORKER, REJECTOR Note: Formatting of this note might be d ifferent from the original. - has applied for several housing lists; waiting to hear back, wants to be near family Quit using tobacco (cigarettes, Tobacco Use No Melissa Coronado, DNP, DELINQUENCY PREVENTION SOCIAL WORKER, smokeless, etc) REJECTOR Note: Formatting of this note might be d ifferent from the original. Will use nicorette gum in case of breakt hrough craving. Will find some candy or suckers to use d uring group to occupy her hands/oral fixation documented as of this encounter Procedures Procedure Name Priority Date/Time Associated Diagnosis Comme nts US OB DETAIL Routine 09/08/2021 1:22 PM Opioid use disor agustin, Results for this ANATOMY SINGLE OR CDT moderate, in early proc edure are in FIRST GESTATION remission, on the results maintenance therapy section. (HCC) Family history of congenital anomaly of cardiovascular system documented in this encounter Results OB US, detailed anatomy (09/08/2021 1:22 PM CDT) Anatomical Region Laterality Modality Body Ultrasound Specimen (Source) Anatomical Collection Method Collection Time Re ceived Time Location / / Volume Laterality 09/08/2021 1:22 PM CDT Impressions 09/29/2021 1:23 PM CDT IMPRESSION: Single viable intrauterine at 20 weeks and 5 days with best HAZEL January 21, 2022.. ??No apparent abnorma lities on comprehensive anatomic survey. ??Size equals dates. ??400 g. ?? 67%. ??Amniotic fluid is normal. ?? Placenta is anterior without previa. FINDINGS: Best HAZEL: 01/21/2022 Gestational age: 20w5d BIOMETRY FETUS 1 Position: Variable EFW: 400 grams ? EFW percentile by b est HAZEL: ??67 Amniotic fluid: Normal Heart Rate: 147 bpm BPD: 4.66 cm ?? 20w1d ?? 24 percent HC: 18.70 cm ?? 21w1d ?? 55 percent AC: 17.20 cm ?? 22w2d ?? 86 Percent FL: 3.20 cm ?? 20w0d ?? 18 Percent Cerebellum: 1.97 cm Cisterna Magna: 6.10 mm Nuchal Fold: 5.00 mm Lateral ventricle: 7 mm IOD: 1.51 cm OOD: 3.53 cm ??22w4d Humerus: 3.25 cm ?? 21w0d ?? 55 percent Radius: 2.94 cm ?? , Ulna: 3.02 cm 21w2d ?? 47 Percent Tibia: 2.97 cm ?57 Percent Fibula: 2.96 cm Overall composite biometry: 21w0d The following structures were seen and w ere within normal limits: Cerebellum, choroid plexus, lateral vent ricle, falx, profile, cisterna magna, nuchal fold, upper lip, CSP, orbi ts/lens, 4 chamber heart, apex left, RVOT, LVOT, 3VV, 3VTV, AO, stomach , kidneys, bladder, umbilical cord insertion, 3 vessel cord, diaphragm, dominique al arteries, cervical spine, thoracic spine, lumbar spine, sacrum, le gs, arms, hands, feet, cervix, left adnexa, and right adnexa. Gender: Male Narrative 09/29/2021 1:23 PM CDT INDICATION: Opioid use, family history of congenital anomaly EXAM DESCRIPTION: US OB ANATOMY COMPLETE TECHNIQUE: IMAGING: Transabdominal QUALITY: Satisfactory PRINCIPAL TECHNICAL WRITER: Sandy Procedure Note Molly Shea MD - 09/29/2021Formattin g of this note might be different from the original. INDICATION: Opioid use, family history of congenital anomaly EXAM DESCRIPTION: US OB ANATOMY COMPLETE TECHNIQUE: IMAGING: Transabdominal QUALITY: Satisfactory PRINCIPAL TECHNICAL WRITER: Sandy IMPRESSION: Single viable intrauterine at 20 weeks and 5 days with best HAZEL January 21, 2022.. No apparent abnormali ties on comprehensive anatomic survey. Size equals dates. 400 g. 67%. A mniotic fluid is normal. Placenta is anterior without previa. FINDINGS: Best HAZEL: 01/21/2022 Gestational age: 20w5d BIOMETRY FETUS 1 Position: Variable EFW: 400 grams EFW percentile by best ED D: 67 Amniotic fluid: Normal Heart Rate: 147 bpm BPD: 4.66 cm 20w1d 24 percent HC: 18.70 cm 21w1d 55 percent AC: 17.20 cm 22w2d 86 Percent FL: 3.20 cm 20w0d 18 Percent Cerebellum: 1.97 cm Cisterna Magna: 6.10 mm Nuchal Fold: 5.00 mm Lateral ventricle: 7 mm IOD: 1.51 cm OOD: 3.53 cm 22w4d Humerus: 3.25 cm 21w0d 55 percent Radius: 2.94 cm , Ulna: 3.02 cm 21w2d 47 Percent Tibia: 2.97 cm 57 Percent Fibula: 2.96 cm Overall composite biometry: 21w0d The following structures were seen and w ere within normal limits: Cerebellum, choroid plexus, lateral vent ricle, falx, profile, cisterna magna, nuchal fold, upper lip, CSP, orbi ts/lens, 4 chamber heart, apex left, RVOT, LVOT, 3VV, 3VTV, AO, stomach , kidneys, bladder, umbilical cord insertion, 3 vessel cord, diaphragm, dominique al arteries, cervical spine, thoracic spine, lumbar spine, sacrum, le gs, arms, hands, feet, cervix, left adnexa, and right adnexa. Gender: Male Molly Shea MD IMG OB US PROCEDURES documented in this encounter Visit Diagnoses Diagnosis Opioid use disorder, moderate, in early remission, on maintenance therapy (HCC) - Primary Family history of congenital anomaly of cardiovascular system documented in this encounter Care Teams Electric Meter Repairer Relationship Specialty Start Date End Date None, Pcp PCP - General Bmx Rider 02/06/[address] [place] [phone] documented as of this encounter
--- OUTSIDE RECORDS SUMMARY | 2022-01-14 01:42 | XMS_ITS | Encounter Summary ---
:1990 Author Organization [facility] Address [address] [place] [address] Care Team Providers Name Role Phone None, Pcp Primary Care Provider Unavailable Reason for Visit Reason Comments Routine Visit Encounter Details Date Type Department Care Team Description 08/24/2021 Routine [facility], Super vision of high risk , antepartum (Primary Dx); [facility] MD Lisa 18 weeks gestation of ; Hearing And Speech Assistant 1649 Family history of congenital anomaly of cardiovascular system; [address] [facility] History of section, classical; [place] [address] [place] History of hepatitis C virus infection; [phone] History of gestational hypertension; [phone] History of poor growth; (Work) Opioid use disorder, moderate, in early remission, on maintenance therapy (HCC); [phone] Mild intermitte nt asthma without complication; (Fax) Nicotine depend ence, uncomplicated, unspecified nicotine product type; Anxiety; Attention defic it hyperactivity disorder (ADHD), combined type; 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 Do you belong [...] place to sleep or slept in a mcc (including now)? Education Answer Date Recorded What is the highest level of school you have High school [employer] 03/21/2020 completed or the highest degree you have received? Sex Assigned at Date Recorded Not on file documented as of this encounter Last Filed Vital Signs Vital Sign Reading Time Taken Comments Blood Pressure 114/60 08/24/2021 3:11 PM CDT Pulse - - Temperature - - Respiratory Rate - - Oxygen Saturation - - Inhaled Oxygen Concentration - - Weight 85.4 kg (188 lb 3.2 oz) 08/24/2021 3:11 PM CDT Height - - Body Mass Index 31.36 05/26/2021 12:43 PM RUBBER OFF documented in this encounter Patient Instructions Patient InstructionsKristen Welch LPN - 08/24/2021 3:10 PM CDT OB18 Your Anatomy Ultrasound Your ultrasound will be performed in the Department of Radiology. Please make sure to come to this appointment 15 minutes before your scheduled time, and to have a full bladder when you come. You may have one adult come with you to your appointment. No children are allowed in the ultrasound room. Results IF you had lab tests today, or an ultrasound, we will talk about your results with you at your next routine OB visit and/or they will be sent to you on Oct[place]. We will let you know if any of the results are abnormal, or more testing is needed. Who to Call Please call the OBGYN department at [phone] if you have vaginal bleeding, vaginal spotting, abnormal vaginal discharge, or have any questions/concerns. OB Concerns [facility] Center: [phone]. Because of COVID19, you MUST call before [...] hour, please contact the OBGYN clinic at [phone] during business hours (Tuesday-Tuesday, 8-5pm) or the Center at [phone] after business hours. Classes and Preparation -- Classes fill up fast! We suggest that you register around 24 weeks of . [place] online for in-person group classes: https://www.Superfeedr/classes-events/search-results/?TermId=[email or web address]- [email or web address] --One-to-one classes, instruction with only you, your partner or family member or members, and the educator, are available. If you are interested, please ask your provider about ordering this for you. -- Me[employer]imei offers anytime, anywhere, parent education designed to give you convenient access to valuable, research-based information on care, labor and , care, , and care, including lots of videos! Me[employer] can also provide you with unique tools like a kick counter, contraction timer, personal journal, and more. How to get access to [employer]: [place] for the program by going to: [email or web address]/Q[facility]xt[facility] samaritan hospitalMaternityApp _[phone] You will then receive an email from [email or web address] providing you with your login and password information. Please note: The email will come from [facility] and not [facility]. If you do not receive a confirmation, be sure to check your email's Circle Plus [employer]ments folder. After you have created your account, you can access Meil[employer]i in 2 ways: Download the free mobile talia from your talia store. Search ???Meilimei.?? or Login on the Me[employer] website: [email or web address] --In-person Center tours are on hold due to the pandemic. Here is a link to a short YouTube video tour of our beautiful Center: Https://www.youMiyowa.com/watch?v=[email or web address] Get the COVID-19 vaccine! COVID in can cause serious, even life-threatening, complications for you and your infant. Millions of people have now been vaccinated, and there's no sign of danger to people or to their babies. When you, your partner, and other family members get the vaccine, you are protecting not only yourselves, but the baby as well. In October 2020, The [place] College of Obstetricians and Gynecologists (ACOG) released recommendations that ALL eligible persons, including people and people who are breast feeding, receive a COVID-19 vaccine or vaccine series: https://www.acog.org/womens-health/faqs/lbhpjxkngkn-obcxt-43-hblojpyzd-try-oxawj tfeeding?utm_source=redirect&utm_medium=web&utm_campaign=int For more technical information on that recommendation: https://www.acog.org/clinical/clinical-guidance/practice-advisory/articles//frfup-09-hkvlnewdawx-zpwrkzkxornfrj-mln-mnmzgndew-gynecologic-care Looking for even more information on the COVID vaccine in ?: [employer] https://www.RotaryView/?mc_cid=[email or web address]&mc_eid=[email or web address] [facility] YouTube Channel [email or web address]://[email or web address]-[email or web address] The CDC https://www.cdc.gov/coronavirus/2019-ncov/vaccines/recommendations/.htm l The Society for Maternal Medicine https://www.highriskpregnancyinfo.org/covid-19 [facility] COVID-19 Vaccine Information https://www.olmmed.org/krjhs-56-dquefayajrr/llbeb-96-pirtubq-information - For information on other COVID vaccination options in [facility]: Https://www.[facility]/covid/vaccine GENERAL COVID-19 RECOMMENDATIONS Wear a surgical mask. Masks should be worn inside in public places. Wash your hands often with soap and water for at least 20 seconds. If you can't use soap and water, please use alcohol-based hand rotary shear worker helper, like Purell. Cough into your elbow, NOT your hands. Avoid touching your eyes, nose, and mouth. Avoid being around people who are sick. If you are sick, please stay home from school, work, and other activities. If you are sick or have had contact with a person who has COVID-19: Call the [facility] Nurse Triage line at [phone] during normal clinic hours. If need immediate emergency care (for example: shortness of breath) after clinic hours: Use the [facility] Emergency Room. COVID Testing Starting 05.11.21 ALL [...] 3-5 days before delivery. VISITOR POLICY for field artillery targeting technician Patients Your visitors/support people cannot be currently [...] to return during visiting hours. A Certified Supervisor [employer] may also be with you during your [...] before you come to the clinic at [phone]. DO NOT COME to the clinic until you call, even if you have an appointment. Surgical masks must be worn while inside the [facility]. If you don't have one, don't worry! We'll give you one at the door. If you have tested positive for COVID: Call us before you come to the clinic at [phone]. Please understand that we may reschedule your clinic visit to another time. Instructions for your BirthCenter (Labor and Delivery) Care: Call us first before coming to the hospital - [phone]. DO NOT come to the BirthCenter without calling. IF you have COVID and need to come to the Center: Remind staff of your positive COVID-19 test when you call before you come. Come in the [facility] doors, like you do for appointments. DO NOT come into the building through the Emergency Room. Both you and the people who come with you are required to wear a surgical face mask when you come [facility]. It is a requirement to wear a surgical mask outside of your Center room. All of the people in your room are required to wear a surgical mask whenever staff are present. BRING everything with you when you come in, including: Your car seat. [place] for meals for the people who come with you, and for other needs. Personal items. Your inhaler, like Albuterol/Ventolin/Proventil, if you use one for asthma or allergies. Please note: Per [facility] policy, we do not allow videotaping of deliveries or resuscitations. documented in this encounter Progress Notes Lisa Prasad MD - 08/24/2021 3:00 PM CDT 18w4d White appointment upcoming 09/08/21 Problem list updated Patient unfortunately not a TOLAC candidate - high transverse incision noted on operative note. Patient was not aware of this so is appropriately saddened. 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 Plan had been to repeat a CTA. Clearly can't happen as . Will defer to Monse lott a referral to neurology is warranted given imaging wont be possible documented in this encounter Plan of Treatment Not on filedocumented as of this encounter Goals Goal Patient Goal Associated Recent Patient-Stated? Author Type Problems Progress secure housing General Yes Melissa Coronado, DNP, CORPORATE TRAVEL EXPERT, SHOE PATTERNMAKER Note: Formatting of this note might be d ifferent from the original. - has applied for several housing lists; waiting to hear back, wants to be near family Quit using tobacco (cigarettes, Tobacco Use No Melissa Coronado, DNP, CORPORATE TRAVEL EXPERT, smokeless, etc) SHOE PATTERNMAKER Note: Formatting of this note might be d ifferent from the original. Will use nicorette gum in case of breakt hrough craving. Will find some candy or suckers to use d uring group to occupy her hands/oral fixation documented as of this encounter Results (ABNORMAL) Rapid drug screen, urine (lab staff release/collect) (08/24/2021 4:09 PM CDT) athologist Signature Rapid Urine ----- 08/24/2021 [facility] Drug Screen 4:09 PM CDT [facility] Comment: This is a screening test. ??Positive res ults should be considered presumptive and [facility]. This test is not for legal purposes - on medical. Tetrahydrocannabinol NOT DETECTED Not Detected 08/24/2021 4: 54 [facility] CDT [facility] Phencyclidine, Mec NOT DETECTED Not Detected 08/24/2021 4:54 [facility] Cocaine NOT DETECTED Not Detected 08/24/2021 4:54 [facility] Methamphetamine NOT DETECTED Not Detected 08/24/2021 4:54 [facility] Opiates NOT DETECTED Not Detected 08/24/2021 4:54 [facility] Amphetamines NOT DETECTED Not Detected 08/24/2021 4:54 [facility] Benzodiazepines NOT DETECTED Not Detected 08/24/2021 4:[facility] TCA, Urine NOT DETECTED Not Detected 08/24/2021 4:54 [facility] Methadone NOT DETECTED Not Detected 08/24/2021 4:54 [facility] Barbiturates NOT DETECTED Not Detected 08/24/2021 4:54 [facility] Oxycodone NOT DETECTED Not Detected 08/24/2021 4:54 [facility] Propoxyphene NOT DETECTED Not Detected 08/24/2021 4:54 [facility] Buprenorphine DETECTED (A) Not Detected 08/24/2021 4:54 [facility] Comment: Sent to [employer]er[employer]aver[employer] for GC/MS confirmation. Detectable Levels ----- 08/24/2021 4:09 [facility] Comment: Amphetamines ?500 ng/ mL [...] Organization Address City/State/ZIP Code Phon e Number [facility] [address] [place] [address] documented in this encounter Visit Diagnoses Diagnosis Supervision of high risk , ante - Primary 18 weeks gestation of Family history of congenital anomaly of cardiovascular system History of section, classical Other postprocedural status History of hepatitis C virus infection History of gestational hypertension History of poor growth Opioid use disorder, moderate, in early remission, on maintenance therapy (HCC) Mild intermittent asthma without complic ation Nicotine dependence, uncomplicated, unsp ecified nicotine product type Anxiety Anxiety state, unspecified Attention deficit hyperactivity disorder (ADHD), combined type Disorder of arteries and arterioles (HCC ) Unspecified disorders of arteries and ar terioles documented in this encounter Care Teams Wafer Fabrication Operator Relationship Specialty Start Date End Date None, Pcp PCP - General Re Etcher [birth year][address] [place] [address] documented as of this encounter
--- OUTSIDE RECORDS SUMMARY | 2022-01-14 01:42 | XMS_ITS | Encounter Summary ---
:1990 Author Organization [facility] Address [address] [place] [id number] Care Team Providers Name Role Phone None, Pcp Primary Care Provider Unavailable Reason for Visit Reason Comments Routine Visit Encounter Details Date Type Department Care Team Description 11/03/2021 Routine [facility] Women's Health Sonia Ashley, Pascual gnancy, supervision, high-risk, third trimester (Primary Dx); [facility] COOPERATIVE EDUCATION DIRECTOR, [facility] 28 weeks gestation of ; Stock Patcher [address] 30 weeks gestation of pregna ncy [address] [place] [address] [place], [place] [phone] [id number] Social History Tobacco Use Types Packs/Day Years [...] 03/21/2020 relatives? How often do you attend jewish or jainism Not asked 03/21/2020 services? Do you belong to any clubs or organizations such as Not chinmay d 03/21/2020 jewish groups, unions, fraternal or athletic groups, or [...] place to sleep or slept in a longterm (including now)? Education Answer Date Recorded What is the highest level of school you have High school gra duate 03/21/2020 completed or the highest degree you have received? Sex Assigned at Date Recorded Not on file documented as of this encounter Patient Instructions Patient Jose Flowers LPN - 11/03/2021 1:20 PM CDT OB28 Results IF you had lab tests today, or an ultrasound, we will talk about your results with you at your next routine OB visit and/or they will be sent to you on GigsWiz. We will let you know if any of the results are abnormal, or more testing is needed. Who to Call Please call the OBGYN department at [phone] if you have vaginal bleeding, vaginal spotting, abnormal vaginal discharge, or have any questions/concerns. OB Concerns [facility] Center: [phone]. Because of COVID19, you MUST call before [...] hour, please contact the OBGYN clinic at [phone] during business hours (Tuesday-Tuesday, 8-5pm) or the Center at [phone] after business hours. Classes and Preparation -- Classes fill up fast! We suggest that you register around 24 weeks of . [place] online for in-person group classes: https://www.Aseptia/classes-events/search-results/?TermId=[email or web address] --One-to-one classes, instruction with only you, your partner or family member or members, and the educator, are available. If you are interested, please ask your provider about ordering this for you. -- [employer] offers anytime, anywhere, parent education designed to give you convenient access to valuable, research-based information on care, labor and , care, , and care, including lots of videos! [employer] can also provide you with unique tools like a kick counter, contraction timer, personal journal, and more. How to get access to [employer]: [place] for the program by going to: [email or web address].Morningside Analytics/[facility] HospitalMaternityApp _[phone] You will then receive an email from [email or web address] providing you with your login and password information. Please note: The email will come from [facility] and not [facility]. If you do not receive a confirmation, be sure to check your email's [place] [employer] folder. After you have created your account, you can access [employer] in 2 ways: Download the free mobile talia from your talia store. Search ???[employer].?? or Login on the [employer] website: [email or web address]. --In-person Center tours are on hold due to the pandemic. Here is a link to a short YouTube video tour of our beautiful Center: Https://www.Altia.com/watch?v=qnkDH3c1qHD Get the COVID-19 vaccine! COVID in can cause serious, even life-threatening, complications for you and your infant. Millions of people have now been vaccinated, and there's no sign of danger to people or to their babies. When you, your partner, and other family members get the vaccine, you are protecting not only yourselves, but the baby as well. Since October 2020, The [place] College of Obstetricians and Gynecologists (ACOG) has recommended thatALL eligible persons, including people and people who are breast feeding, receive the COVID-19 vaccine series: https://www.acog.org/womens-health/faqs/uqjhidrtsad-ufqkk-41-cuwgdweck-olo-yuqyt tfeeding?utm_source=redirect&utm_medium=web&utm_campaign=int Looking for even more information on the COVID vaccine in ?: ACOG The [employer] College of Obstetricians and Gynecologists https://www.acog.org/womens-health/faqs/nbyxyooopyq-tjund-93-injmuodzo-dkr-kfhtv tfeeding?utm_source=redirect&utm_medium=web&utm_campaign=int [employer]ives https://www.MarketBrief.Kismet/?mc_cid=[email or web address]&mc_eid=[email or web address] [facility] YouTube Channel https://[email or web address]/XC-[email or web address] The [facility] https://www.cdc.gov/coronavirus/2019-ncov/vaccines/recommendations/.htm [facility] COVID-19 Vaccine Information https://www.[facility].org/bsxqn-17-ipvsnfwhkxk/ For information on other COVID vaccination options in [facility]: Https://www.[facility]/covid/vaccine GENERAL COVID-19 RECOMMENDATIONS Wear a surgical mask. Masks should be worn inside in public places. Wash your hands often with soap and water for at least 20 seconds. If you can't use soap and water, please use alcohol-based hand pediatrician managing partner, like Purell. Cough into your elbow, NOT your hands. Avoid touching your eyes, nose, and mouth. Avoid being around people who are sick. If you are sick, please stay home from school, work, and other activities. If you are sick or have had contact with a person who has COVID-19: Call the [facility] Nurse Triage line at [phone] during normal clinic hours. If need immediate emergency care (for example: shortness of breath) after clinic hours: Use the [facility] Emergency Room. COVID Testing Starting 05.11.21 ALL patients are being screened for COVID-19. Testing will usually happen around 38 weeks gestation - about 2 weeks before your due date. The only patients who do not need this testing are those who have had COVID in the last 3 months. IFYOU HAVE A POSITIVE COVID TEST AT HOME, you must be tested here at [place] so that we have a record of that positive. Go to https://www.[facility].org/qpjli-77-ujngdmiwysq/ to get information on how to get tested. COVID testing may occur earlier if we are planning an earlier delivery. COVID testing for planned sections will happen 3-5 days before delivery. VISITOR POLICY for pelt grader Patients Your visitors/support people cannot be currently in quarantine or isolation. This is defined by the CDC guidelines. Go to the following web site to figure out who should be in quarantine or isolation, and for how long: COVID-19 Quarantine and Isolation [facility] https://www.cdc.gov/coronavirus/2019-ncov/your-health/quarantine-isolation.html BirthCenter - Visitor Update Your support person, the person who is given your wristband with your patient information on it after delivery, may stay throughout your stay. You may have two visitors, during normal visiting hours of 6:00 AM - 9:00 PM. You may have one overnight visitor, who stays after normal visiting hours have ended at 9:00 PM. Only brothers and sisters ages 5 - 12 of the baby may visit. They must have an adult with them who is not the patient. A Certified Top And Trim Worker may also be with you during your labor and delivery on the Center, however they must leave after the delivery. The main nursery area is off limits to visitors. Parents and grandparents only of babies in the individual Nursery I and Nursery II rooms may visit, two at a time. Clinic visits TWO people may come with [...] before you come to the clinic at [phone]. DO NOT COME to the clinic until you call, even if you have an appointment. Surgical masks must be worn while inside the [facility] Pavilion. If you don't have one, don't worry! We'll give you one at the door. If you have tested positive for COVID: Call us before you come to the clinic at [phone]. Please understand that we may reschedule your clinic visit to another time. Instructions for your BirthCenter (Labor and Delivery) Care: Call us first before coming to the hospital - [phone]. DO NOT come to the BirthCenter without [...] a surgical face mask when you come [facility]. It is a requirement to wear [...] for asthma or allergies. Please note: Per [facility] policy, we do not allow videotaping of deliveries or resuscitations. documented in this encounter Progress Notes Sonia Ashley APRN, CNP - 11/03/2021 1:20 PM CDT Pt did not show for visit 11/03/2021. documented in this encounter Plan of Treatment Not on filedocumented as of this encounter Goals Goal Patient Goal Associated Recent Patient-Stated? Author Type Problems Progress secure housing General Yes Melissa Coronado DNP, COOPERATIVE EDUCATION DIRECTOR, EMPLOYMENT EVALUATOR/CASE MANAGER Note: Formatting of this note might be d ifferent from the original. - has applied for several housing lists; waiting to hear back, wants to be near family Quit using tobacco (cigarettes, Tobacco Use No Melissa Coronado DNP, COOPERATIVE EDUCATION DIRECTOR, smokeless, etc) EMPLOYMENT EVALUATOR/CASE MANAGER Note: Formatting of this note might be d ifferent from the original. Will use nicorette gum in case of breakt hrough craving. Will find some candy or suckers to use d uring group to occupy her hands/oral fixation documented as of this encounter Visit Diagnoses Diagnosis , supervision, high-risk, third trimester - Primary 28 weeks gestation of 30 weeks gestation of documented in this encounter Care Teams Data Control Clerk Relationship Specialty Start Date End Date None, Pcp PCP - General Product Engineer 02/06/[birth year] [address] [place] [address] documented as of this encounter
--- OUTSIDE RECORDS SUMMARY | 2022-01-14 01:42 | XMS_ITS | Encounter Summary ---
:1990 Author Organization [facility] Address [address] [place] [id number] Care Team Providers Name Role Phone None, Pcp Primary Care Provider Unavailable Reason for Referral Consultation (Routine) - Authorized Specialty Diagnoses / Procedures Referred By Contact Refer red To Contact Diagnoses Family history of congenital anomaly of cardiovascular system Molly Shea MD [facility] [address] [place], [place] [address] [address] [place] [address] Fax: Referral ID Status Reason Start Date Expiration Date Visits V isits Requested Authorized [id number] Authorized 09/08/2021 09/09/2022 1 1 Scheduling Instructions hazel 01/21/22 Reason for Visit Reason Comments Consult Perinatology Consultation (Routine) - Authorized Specialty Diagnoses / Procedures Referred By Contact Refer red To Contact Perinatology Diagnoses Supervision of high risk , antepartum Opioid use disorder, moderate, in early remission, on maintenance therapy (HCC) Family history of congenital anomaly of cardiovascular system Emmanuel Damon MD [facility] Perinatology [address] [place] [address] [place] [address] Referral ID Status Reason Start Expiration Visits Visits Date Date Requested Authorized [id number] Authorized Specialty 06/25/2021 06/25/2022 1 1 Services Required Encounter Details Date Type Department Care Team Description 09/08/2021 Consult [facility] Molly Shea MD Family history of congenital anomaly of cardiovascular system (Primary Dx); Perinatology [address] Nicotine dependence, uncompl icated, unspecified nicotine product type; [address] Disorder of arteries and arterioles (HCC ); [place] [address] [place] Irritable bowel syndrome wit h constipation; [phone] Unwanted fertility; [phone] History of cesa rean section, classical; (Work) History of poor growth; History o f gestational hypertension; Opioid use diso rder, moderate, in early remission, on maintenance therapy (HCC); Attention defic it hyperactivity disorder (ADHD), combined type Social History Tobacco Use Types Packs/Day Years [...] 03/21/2020 relatives? How often do you attend anglican or mormonism Not asked 03/21/2020 services? Do you belong to any clubs or organizations such as Argelia schilling 03/21/2020 anglican groups, unions, fraternal or athletic groups, or [...] place to sleep or slept in a prison (including now)? Education Answer Date Recorded What is the highest level of school you have High school [employer] 03/21/2020 completed or the highest degree you have received? 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 We will let you know if any of the results are abnormal, or more testing is needed. Who to Call Please call the OBGYN department at [phone] if you have vaginal bleeding, vaginal spotting, abnormal vaginal discharge, or have any questions/concerns. OB Concerns [facility] [place]: [phone]. Because of COVID19, you MUST call before [...] hour, please contact the OBGYN clinic at [phone] during business hours (Tuesday-Tuesday, 8-5pm) or the Center at [phone] after business hours. Classes and Preparation -- Classes fill up fast! We suggest that you register around 24 weeks of . [place] online for in-person group classes: [email or web address]/classes-[email or web address]/search-[email or web address]/?[email or web address] --One-to-one classes, instruction with only you, your partner or family member or members, and the educator, are available. If you are interested, please ask your provider about ordering this for you. -- [employer] offers anytime, anywhere, parent education designed to give you convenient access to valuable, research-based information on care, labor and , care, , and care, including lots of videos! [employer] can also provide you with unique tools like a kick counter, contraction timer, personal journal, and more. How to get access to [employer]: [place] for the program by going to: [email or web address] You will then receive an email from [email or web address] providing you with your login and password information. Please note: The email will come from [facility] and not [facility]. If you do not receive a confirmation, be sure to check your email's Orions Systems folder. After you have created your account, you can access [employer] in 2 ways: Download the free mobile talia from your talia store. Search ???Wokup.?? or Login on the [employer] website: [email or web address] --In-person Center tours are on hold due to the pandemic. Here is a link to a short YouTube video tour of our beautiful Center: Https://[email or web address]/watch?v=[email or web address] Get the COVID-19 vaccine! COVID in can cause serious, even life-threatening, complications for you and your infant. Millions of people have now been vaccinated, and there's no sign of danger to people or to their babies. When you, your partner, and other family members get the vaccine, you are protecting not only yourselves, but the baby as well. In October 2020, The [employer] College of Obstetricians and Gynecologists (ACOG) released recommendations that ALL eligible persons, including people and people who are breast feeding, receive a COVID-19 vaccine or vaccine series: https://www.acog.org/womens-health/faqs/lodnzgdelyh-iiuhv-34-pplushjai-pzh-xwfky tfeeding?utm_source=redirect&utm_medium=web&utm_campaign=int For more technical information on that recommendation: https://www.acog.org/clinical/clinical-guidance/practice-advisory/articles//ashgq-30-bekcmilxirl-rfdqcjlyejiijm-hbw-feuvzemtq-gynecologic-care Looking for even more information on the COVID vaccine in ?: Plazes https://www.VoxPop Network [employer].Qgiv/?mc_cid=[email or web address]&mc_eid=422b1q8462 [facility] YouTube Channel [email or web address]://[email or web address] The CDC https://www.cdc.gov/coronavirus/2019-ncov/vaccines/recommendations/.htm l The Society for Maternal Medicine https://www.highriskpregnancyinfo.org/covid-19 [facility] COVID-19 Vaccine Information https://www.olmmed.org/hlpbf-41-akmpfvlslck/wfitd-88-ozbltei-information - For information on other COVID vaccination options in [facility]: Https://www.[facility]/covid/vaccine GENERAL COVID-19 RECOMMENDATIONS Wear a surgical mask. Masks should be worn inside in public places. Wash your hands often with soap and water for at least 20 seconds. If you can't use soap and water, please use alcohol-based hand brass molder helper, like Purell. Cough into your elbow, NOT your hands. Avoid touching your eyes, nose, and mouth. Avoid being around people who are sick. If you are sick, please stay home from school, work, and other activities. If you are sick or have had contact with a person who has COVID-19: Call the INDUSTRIAL PRODUCTION MANAGER Nurse Triage line at [phone] during normal clinic hours. If need immediate emergency care (for example: shortness of breath) after clinic hours: Use the [facility] Emergency Room. COVID Testing Starting 05.11.21 ALL [...] 3-5 days before delivery. VISITOR POLICY for architectural sales consultant Patients Your visitors/support people cannot be currently [...] to return during visiting hours. A Certified Office Assistant Receptionist may also be with you during your [...] before you come to the clinic at [phone]. DO NOT COME to the clinic until you call, even if you have an appointment. Surgical masks must be worn while inside the [facility]. If you don't have one, don't worry! We'll give you one at the door. If you have tested positive for COVID: Call us before you come to the clinic at [phone]. Please understand that we may reschedule your clinic visit to another time. Instructions for your BirthCenter (Labor and Delivery) Care: Call us first before coming to the hospital - [phone]. DO NOT come to the BirthCenter without calling. IF you have COVID and need to come to the Center: Remind staff of your positive COVID-19 test when you call before you come. Come in the Women's [facility] doors, like you do for appointments. DO NOT come into the building through the Emergency Room. Both you and the people who come with you are required to wear a surgical face mask when you come [facility]. It is a requirement to wear a [...] or allergies. Please note: Per [facility] policy, we do not allow videotaping of deliveries or resuscitations. documented in this encounter Progress Notes Molly Shea MD - 09/08/2021 1:00 PM CDT Perinatology Consult Referring Provider: Emmanuel Damon MD Indication for consult Patient Active Problem List Diagnosis ??? Disorder of arteries and arterioles (HCC) ??? Anxiety ??? History of hepatitis C virus infection ??? Irritable bowel syndrome with constipation ??? Mild intermittent asthma ??? Nicotine dependence ??? Supervision of high risk , antepartum ??? Alteration in parenting ??? Opioid use disorder, moderate, in early remission, on maintenance therapy (HCC) ??? Family history of congenital anomaly of cardiovascular system ??? History of gestational hypertension ??? History of section, classical ??? Episode of recurrent major depressive disorder (HCC) ??? Attention deficit hyperactivity disorder (ADHD), combined type ??? History of poor growth ??? Unwanted fertility HPI 31 y.o. at 20w5d with best Estimated Date of Delivery: 01/21/22 by L = 7 We met Anjali in a prior . Prior child with congenital heart defect ASD/PFO no surgery in first pregancy Got echo last time - she would like one again Drug dependence, opioid use disorder in early remission ADD On maintenance therapy HPI: Longstanding drug use since age 20. Drugs of choice- methamphetamines heroin and cocaine. Positive history of IV drug use. last use February 2020 then a few weeks after last delivery. Now on buprenorphine/Subutex 18 mg daily, prescribed by addiction physician at [facility] clinic. No involuntary termination of parental rights. On Vyvanse. 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 IBS symptoms Constipation predominant and dependent upon Dulcolax suppositories for bowel movements since childhood; not been seen yet by GI medicine due to Covid -->still ongoing; her eval was cancelled due to covid; will pursue pp Hepatitis C infection - resolved Prior infection with no ongoing viral load in 2017 Unwanted fertility H/o 10/03/20 high transverse incision Plans repeat at 37/0 -38/0 Wants BTL Obesity, class 1 bmi 33--> 31 Routine PNC Rh pos Glucola Labs Tdap Flu GBS PPBC Review of Systems: No bleeding, no pain, no leakage of fluid Past Medical History: Diagnosis Date ??? Anxiety 12/27/2014 ??? Chronic pain syndrome 05/31/2016 ??? Combined drug dependence, continuous abuse (HCC) 02/25/2020 As of 04.23.19 [place] [employer] Per 02.25.20 NOB @[facility]: ??? Drug use: Yes Types: Methamphetamines, Heroin, Cocaine Comment: Last use yesterday 01/30/2020 heroin, methamphetamin (Tuesday01/29/2020) 02.25.20 RUDS - Buprenorphine, U+ only #2 Dependence Polysubstance Continuous (HCC) Thepatient is followed by her addiction physician, Dr. Anthony Rebolledo ([phone]) and has an ??? Disorder of arteries and arterioles (HCC) 02/01/201904.23. entry Patient also was admitted to [place] with strokelike symptoms February 01 and . 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 Has been maintained on aspirin. No further symptoms. 02.01.19 [facility] Result Impression 1. No acute intracranial findings. 2. 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 Other Result Information Result ??? Drug dependence affecting , childbirth, or puerperium 06/20/2020 ??? History of hepatitis C virus infection 06/24/2017 ??? Migraine headache 05/18/2017 ??? Mild intermittent asthma 07/01/2014 ??? Nicotine dependence 04/02/2011 ??? Peripheral vascular disease (HCC) 04/26/2019 ??? Unspecified viral hepatitis C without hepatic coma 05/18/2017 ??? Unsure of last menstrual period as reason for ultrasound scan 03/21/2020 Dating by 02.25.20 8+2 -> EDC 6 @ [facility] Past Surgical History: Procedure Laterality Date ??? SECTION, LOW TRANSVERSE ??? TONSILLECTOMY ??? WRIST SURGERY Right Cyst removal OB History Para Term AB Living 4 2 2 1 2 SAB IAB Ectopic Multiple Live Births 1 2 # Outcome Date GA Lbr Tavon/2nd Weight Sex Delivery Anes PTL Lv 4 Current 3 Term 10/03/20 39w6d 2780 g (98.1 oz) M CS-LTranv EPI GAY Complications: Intolerance 2 SAB 11/2018 1 Term 09/04/13 39w4d 3118 g (110 oz) M Vag-Spont N GAY Comments: NOT parenting. With her grandparent. Social History Tobacco Use ??? Smoking status: Former Smoker Packs/day: 1.00 Types: Cigarettes Quit date: 03/2020 Years since quittin.4 ??? Smokeless tobacco: Never Used Vaping Use ??? Vaping Use: Every day ??? Start date: 04/25/2020 ??? Substances: Nicotine Substance Use Topics ??? Alcohol use: Not Currently Comment: Sober since 2014 ??? Drug use: Not Currently Types: Amphetamines, Heroin, Marijuana, Cocaine, MDMA (ecstacy) Comment: Last used Heroin 01/29/21 (Heroin is drug of choice per Anjali) Genetic and Family History Genetic screen for aneuploidy: normal MT21 No history of recurrent stillbirth, structural anomaly, intellectual disability in her or her partner's family Current Outpatient Medications on File Prior to Visit Medication Sig Dispense Refill ??? acetaminophen (TYLENOL) 500 MG tablet Take 1,000 mg by mouth every 6 (six) hours if needed for mild pain ??? albuterol HFA (Ventolin HFA) 108 (90 Base) MCG/ACT inhaler Inhale 2 puffs every 4 (four) hours if needed for wheezing or shortness of breath (Patient not taking: Reported on 05/26/2021) 18 g 1 ??? aspirin EC 81 MG EC tablet Take 81 mg by mouth daily (Patient not taking: No sig reported) ??? bisacodyl (DULCOLAX) 10 MG suppository INSERT ONE SUPPOSITORY INTO THE RECTUM ONCE DAILY PRN 30 suppository 3 ??? buprenorphine (SUBUTEX) [address] 2 mg under the tongue once ??? buprenorphine (SUBUTEX) 8 MG 16 mg ??? buPROPion XL (WELLBUTRIN XL) 150 MG 24 hr tablet Take 150 mg by mouth 1 (one) time each day ??? busPIRone (BUSPAR) 10 MG tablet Take 10 mg by mouth 2 (two) times a day ??? DULoxetine (CYMBALTA) [address] capsule Take 40 mg by mouth 1 (one) time each day Do not crush orchew. (Patient not taking: No sig reported) ??? folic acid (FOLVITE) 400 MCG tablet Take 800 mcg by mouth 1 (one) time each day ??? Vit-Fe Fumarate-FA ( MULTIVITAMINS PO) Take by mouth (Patient not taking: Reported on 08/24/2021) ??? Vyvanse 30 MG capsule Take by mouth 1 (one) time each day No current facility-administered medications on file prior to visit. Allergies Dog epithelium allergy skin test, Dust mite extract, Ragweed, and Sulfa antibiotics Blood pressure 118/68, weight 85.3 kg (188 lb 1.6 oz), last menstrual period 04/16/2021, unknown if currently . Ultrasound: SLIUP normal tiara including heart; ant plac appears normal 400g 67% Assessment: Intrauterine at 20w5d Problem List Items Addressed This Visit Cardiac and Vasculature Disorder of arteries and arterioles (HCC) Chromosomal and Congenital Family history of congenital anomaly of cardiovascular system - Primary Relevant Orders Ambulatory External Referral Gastrointestinal and Abdominal Irritable bowel syndrome with constipation Genitourinary and Reproductive Unwanted fertility Gravid and History of gestational hypertension History of section, classical History of poor growth Mental Health Opioid use disorder, moderate, in early remission, on maintenance therapy (HCC) Attention deficit hyperactivity disorder (ADHD), combined type Tobacco Nicotine dependence Plan I reviewed with the patient and her partner that today's ultrasound shows normal anatomy and appropriate growth that matches her stated HAZEL. We reviewed the difference between a comprehensive anatomic survey and a routine anatomic survey, discussed all the structures we examined today and provided herwith pictures. I reviewed with the patient that with a prior section with extension, she is not a candidate for trial of labor after . She has an anterior placenta but it appears normal without evidence of accreta. She will need to have a delivery between 37 and 0 and 38 and 0. She is wanting to wait as long as possible. I stated we can use cervical dilation and contraction frequency around the time of the planned delivery to help guide her in this window. The patient has undesired fertility and would like a tubal ligation. We discussed that this procedure confers minimal additional risk if she is undergoing section. They will consider all options but at this time she would like to proceed with a tubal ligation and sign paperwork if necessary. Medication assisted treatment of an opioid substance use disorder with an opioid agonist or antagonist has been shown to be more effective than abstinence based treatment for many patients. Buprenorphine is safe and effective and may reduce abstinence syndrome compared with methadone. Continued use rather than weaning is recommended as outcomes are better. We do not prescribe this drug out of the OB clinic at [facility], and she will need to continue getting it from her mental health provider/addiction management provider. It is not associated with any structural defects. Use is not an indication for antepartum testing on its own. If the patient has a relapse then third trimester antepartum testing would be indicated. I recommend a growth ultrasound between 30 and 32 weeks gestation. I recommend anesthesia consultation in the third trimester as pain control can be an issue. We did discuss abstinence syndrome. This occurs more often with opioid- containing medications. It is hard to predict how many days to weeks this might require hospitalization, but theminimum period of inpatient hospitalization is 4 days. We reviewed the limitations of hospitalization at [facility] and if the baby requires ongoing pharmacologic treatment it would require transfer to [facility]. [facility] is in the process of establishing protocols to manage ERIS at this location, but these are no in effect as of now. She will have drug testing at delivery as well as meconiumscreening for the baby. is a high risk time for recurrent use due to hormone changes, discomforts and increased psychosocial stressors. I encouraged her to let us know if she was having thoughts of use. Cardiac malformations are among the most common defects, affecting approximately three per thousand live-born babies. Isolated cardiac defects are usually multifactorial in etiology; however, occasionally a cardiac anomaly may, in a given family, appear to result from a single gene. Recurrence risks for specific defects have been reported and the risk to a couple who has had a previously affected child is approximately 2-3%. This risk is up to 10% of first-degree relatives of people with bicuspid aortic valve. Heart defects, which occur with other malformations, may have a higher recurrence risk and should be evaluated more thoroughly. echocardiography is available for detection of cardiac malformations and will detect 75-80% of all major cardiac anomalies. Today's ultrasoundexamination of detailed heart views is within normal limits. 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 She was offered a echocardiogram referral to [facility] and accepted. Intrauterine exposure to medications for ADD/HD has been associated with a possible increased risk for cardiac malformations for women using methylphenidate. Studies have not demonstrated adverse impact on growth. In general due to concerns for abstinence syndrome, women are advised to discontinue or decrease dose if possible. If this negatively impacts quality of life then medication can be continued in . Nicotine abuse is associated with delivery and growth problems in the fetus. Growth problemsare particularly significant when patients are smoking/vaping more than 7 cigarettes a day. We discussed decreasing her tobacco use and ideally cessation. She is not interested in further information on tobacco cessation at this time. Constipation is a common complaint in . We discussed safe bowel regimens including avoidinglaxatives and using Colace, fiber, and MiraLAX as needed. She will pursue more evaluation . Her headaches and history of arterial malformation should not impact and are not currentlymuch of an issue. She also states her asthma symptoms are really nonexistent. Noted is a prior hepatitis C infection which has cleared. Information was given about associations between Class I obesity (or BMI > 30) and increased risks in over normal weight individuals including gestational diabetes; preeclampsia; congenital anomalies (NTD, clefting, cardiac, anorectal atresia, limb reduction); stillbirth; labor dysfunction / section; macrosomia; and complications of surgery - blood loss, anesthesia issues, infection, venous thromboembolism, etc. There is a decreased risk of idiopathic delivery, but moreindicated deliveries due to the above. Offspring risks include obesity, metabolic syndrome, asthma, and autism. Stillbirth risk is managed with antepartum testing and offering planned delivery. We discussed the patient???s personal risk assessment and the way we manage these risks. I recommended the following: - Weight gain should be determined by prepregnancy BMI (usually up to 15 lbs). - Perform an early assessment for GDM and repeat glucola at 28 weeks. - US for growth at 30-32 weeks - No need for antepartum surveillance for the indication of opioid dependence on maintenance therapyunless currently using - Ongoing drug screening per protocol and maternal drug screening and meconium screening at delivery - Patient may continue ADD medicines if she feels the benefits outweigh the risks - echo for history of CHD prior baby - Plan section at 37 and 0 through 38 and 0 - with tubal ligation - sign tubal papers later in - Follow for peripartum mood disorder - At risk for relapse after delivery given history - Follow asthma, headaches though these are not current issues - Patient is made aware of increased risk. - If is needed, consider increased doses (cefazolin 3 grams for women ?120 kg) and/or broadspectrum antibiotics (addition of azithromycin 500 mg if in labor) - Recommend SCDs and consider prophylactic heparin until discharge --Consider anesthesia consult in third trimester as pain management can be difficult --Patient is aware that risk of abstinence is present and may require [facility] This visit lasted 60 minutes which was spent preparing to see the patient by reviewing clinical notes and test results, reviewing ultrasound images, reviewing past medical history obtained by ancillarystaff, counseling extensively about the issues addressed above and documentation of the visit. This consult required 45 minutes of [id number] counseling about the above. documented in this encounter Plan of Treatment Scheduled Referrals Name Type Priority Associated Diagnoses Order S chedule Ambulatory External Outpatient Referral Routine Family history of Ordered: Referral congenital anomaly of 2021 cardiovascular system documented as of this encounter Goals Goal Patient Goal Associated Recent Patient-Stated? Author Type Problems Progress secure housing General Yes Melissa Coronado, JUAN DIEGO, COMMUNITY NURSE, MANAGER BUSINESS INTELLIGENCE Note: Formatting of this note might be d ifferent from the original. - has applied for several housing lists; waiting to hear back, wants to be near family Quit using tobacco (cigarettes, Tobacco Use No Melissa Coronado, DNP, COMMUNITY NURSE, smokeless, etc) MANAGER BUSINESS INTELLIGENCE Note: Formatting of this note might be d ifferent from the original. Will use nicorette gum in case of breakt hrough craving. Will find some candy or suckers to use d uring group to occupy her hands/oral fixation documented as of this encounter Visit Diagnoses Diagnosis Family history of congenital anomaly of cardiovascular system - Primary Nicotine dependence, uncomplicated, unsp ecified nicotine product type Disorder of arteries and arterioles (HCC ) Unspecified disorders of arteries and ar terioles Irritable bowel syndrome with constipati on Irritable bowel syndrome Unwanted fertility History of section, classical Other postprocedural status History of poor growth History of gestational hypertension Opioid use disorder, moderate, in early remission, on maintenance therapy (HCC) Attention deficit hyperactivity disorder (ADHD), combined type documented in this encounter Care Teams Escalator Attendant Relationship Specialty Start Date End Date None, Pcp PCP - General Checker Loader 02/06/19 [address] [place] [address] documented as of this encounter
--- OUTSIDE RECORDS SUMMARY | 2022-01-14 01:42 | XMS_ITS | Encounter Summary ---
:1990 Author Organization [facility] Address [address] [place] [id number] Phone Care Team Providers Name Role Phone Pcp, No Primary Care Provider Unavailable Encounter Details Date Type Department Care Team Description 12/02/2011 Documentation Only Unspecified Departme nt Unknown, Provider [place] Social History Tobacco Use Types Packs/Day Years Used Date Smoking Tobacco: Never Alcohol Use Standard Drinks/Week Comments No 0 (1 standard drink = 0.6 oz pure alcoho l) 12/01/11 denies Sex Assigned at Date Recorded Not on file documented as of this encounter Procedure Notes Unknown, Provider - 12/03/2011 2:04 PM CDTAssociated Order(s): LEGAL documented in this encounter Plan of Treatment Not on filedocumented as of this encounter Procedures Procedure Name Priority Date/Time Associated Diagnosis Comme nts LEGAL 12/03/2011 2:04 PM Results f or this CDT procedure are i n the results section . documented in this encounter Results LEGAL (12/03/2011 2:04 PM CDT) Narrative 12/03/2011 2:04 PM CDT Procedure Note Unknown, Provider - 12/03/2011 2:04 PM C DT Provider Unknown SCANNED CONSENTS documented in this encounter Visit Diagnoses Not on filedocumented in this encounter Care Teams District Court Judge Relationship Specialty Start Date End Date Pcp, No PCP - General 01/04/12 [facility] [place] [address] documented as of this encounter
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
--- OUTSIDE RECORDS SUMMARY | 2022-01-14 01:42 | XMS_ITS | Encounter Summary ---
:1990 Author Organization [facility] Address [address] [place] [address] Care Team Providers Name Role Phone None, Pcp Primary Care Provider Unavailable Encounter Details Date Type Department Care Team Description 09/08/2021 Hospital Encounter [facility] [address] [place] [address] Social History Tobacco Use Types Packs/Day Years [...] 03/21/2020 relatives? How often do you attend buddhist or voodoo Not asked 03/21/2020 services? Do you belong to any clubs or organizations such as Not chinmay schilling 03/21/2020 buddhist groups, unions, fraternal or athletic groups, or [...] to sleep or slept in a senior living (including now)? Education Answer Date Recorded What is the highest level of school you have High school gra [employer] 03/21/2020 completed or the highest degree you have received? Sex Assigned at Date Recorded Not on file documented as of this encounter Medications at Time of Discharge Medication Sig Dispensed Refills Start Date End Date acetaminophen Take 1,000 mg by 0 (TYLENOL) 500 MG mouth every 6 (six) tablet hours if needed for mild pain aspirin EC 81 MG EC Take 81 mg by mouth 0 021 tablet daily bisacodyl (DULCOLAX) INSERT ONE 30 suppository 3 05/06/2021 10 MG SUPPOSITORY INTO THE suppositoryIndications RECTUM ONCE DAILY : Other constipation PRN buprenorphine Place 2 mg under the 0 08/12/2021 (SUBUTEX) 2 MG tongue once buprenorphine 16 mg 0 05/20/2021 (SUBUTEX) 8 MG buPROPion XL Take 150 mg by mouth 0 07/20/2021 (WELLBUTRIN XL) 150 MG 1 (one) time each 24 hr tablet day busPIRone (BUSPAR) 10 Take 10 mg by mouth 0 07/20 MG tablet 2 (two) times a day DULoxetine (CYMBALTA) Take 40 mg by mouth [address] capsule 1 (one) time each day Do not crush or chew. folic acid (FOLVITE) Take 800 mcg by 0 400 MCG tablet mouth 1 (one) time each day Vit-Fe Take by mouth 0 Fumarate-FA (KP MULTIVITAMINS PO) Vyvanse 30 MG capsule Take by mouth 1 0 2 (one) time each day documented as of this encounter Plan of Treatment Not on filedocumented as of this encounter Goals Goal Patient Goal Associated Recent Patient-Stated? Author Type Problems Progress secure housing General Yes Melissa Coronado, JUAN DIEGO, LNA, FLATWORK FOLDER Note: Formatting of this note might be d ifferent from the original. - has applied for several housing lists; waiting to hear back, wants to be near family Quit using tobacco (cigarettes, Tobacco Use No Melissa Coronado, DNP, LNA, smokeless, etc) FLATWORK FOLDER Note: Formatting of this note might be [...] Placenta is anterior without previa. FINDINGS: Best HAEZL: 01/21/2022 Gestational age: 20w5d BIOMETRY FETUS 1 [...] ANATOMY COMPLETE TECHNIQUE: IMAGING: Transabdominal QUALITY: Satisfactory ELECTRICAL LINEWORKER: Sandy Procedure Note Molly Shea MD - 09/29/2021Formattin g of this note might be different from the original. INDICATION: Opioid use, family history of congenital anomaly EXAM DESCRIPTION: US OB ANATOMY COMPLETE TECHNIQUE: IMAGING: Transabdominal QUALITY: Satisfactory ELECTRICAL LINEWORKER: Sandy IMPRESSION: Single viable intrauterine at 19 [...] PROCEDURES documented in this encounter Visit Diagnoses Not on filedocumented in this encounter Care Teams Advisory Services Associate Relationship Specialty Start Date End Date None, Pcp PCP - General Hr Operations Advisor 02/06/[address] [place] [phone] documented as of this encounter
--- OUTSIDE RECORDS SUMMARY | 2022-01-14 01:43 | XMS_ITS | Encounter Summary ---
:1990 Author Organization [facility] Address [address] [place] [address] Care Team Providers Name Role Phone None, Pcp Primary Care Provider Unavailable Encounter Details Date Type Department Care Team Description 05/26/2021 Travel Social History Tobacco Use Types Packs/Day [...] 03/21/2020 relatives? How often do you attend methodist or scientologist Not asked 03/21/2020 services? Do you belong to any clubs or organizations such as Not chinmay schilling 03/21/2020 methodist groups, unions, fraternal or athletic groups, or [...] place to sleep or slept in a assisted (including now)? Education Answer Date Recorded What is the highest level of school you have High school [employer] 03/21/2020 completed or the highest degree you have received? Sex Assigned at Date Recorded Not on file COVID-19 Exposure Response Date Recorded In the last month, have you been in contact with No / Unsure 05/26/2021 1:11 PM METAL WINDOW FRAME MAKER someone who was confirmed or suspected to have Coronavirus / COVID-19? documented as of this encounter Plan of Treatment Not on filedocumented as of this encounter Goals Goal Patient Goal Associated Recent Patient-Stated? Author Type Problems Progress secure housing General Yes Melissa Coronado, DNP, CONTAINER CRANE OPERATOR, THERAPY MANAGER Note: Formatting of this note might be d ifferent from the original. - has applied for several housing lists; waiting to hear back, wants to be near family Quit using tobacco (cigarettes, Tobacco Use No Melissa Coronado, DNP, CONTAINER CRANE OPERATOR, smokeless, etc) THERAPY MANAGER Note: Formatting of this note might be d ifferent from the original. Will use nicorette gum in case of breakt hrough craving. Will find some candy or suckers to use d uring group to occupy her hands/oral fixation documented as of this encounter Visit Diagnoses Not on filedocumented in this encounter Care Teams Foreign Correspondent Relationship Specialty Start Date End Date None, Pcp PCP - General Compliance Nurse 02/06/19 [address] [place] [phone] documented as of this encounter
--- OUTSIDE RECORDS SUMMARY | 2022-01-14 01:43 | XMS_ITS | Encounter Summary ---
:1990 Author Organization [facility] Address [address] [place] [address] Care Team Providers Name Role Phone None, Pcp Primary Care Provider Unavailable Reason for Visit Reason Onset Date Comments Med PA 10/28/2020 buprenorphine (SUBUT EX) 8 MG Encounter Details Date Type Department Care Team Description 10/28/2020 Telephone SE MEDICATION ASSISTED Melissa Coronado , Med PA (buprenorphine TREATMENT DNP, COIL MACHINE SUPERVISOR, BOOK AUTHOR (SUBUTEX) 8 MG ) [address] [facility] [address] [place] [address] [place] [address] [phone] Social History Tobacco Use Types Packs/Day Years [...] 03/21/2020 relatives? How often do you attend episcopal or oriental orthodox Not asked 03/21/2020 services? Do you belong to any clubs or organizations such as Argelia schilling 03/21/2020 episcopal groups, unions, fraternal or athletic groups, or [...] place to sleep or slept in a [facility] (including now)? Education Answer Date Recorded What is the highest level of school you have High school gra duate 03/21/2020 completed or the highest degree you have received? Sex Assigned at Date Recorded Not on file documented as of this encounter Miscellaneous Notes Telephone Encounter - Rupinder Carrillo LPN - 10/28/2020 2:09 PM CDT Yes, this was sent to [facility], sorry about that! Faxed Approval to correct pharmacy as we,, Telephone Encounter - Rupinder Carrillo LPN - 10/28/2020 12:26 PM CDT NISHA approved from 10/09/20-04/30/21, Case# [id number] Faxed to pharmacy Telephone Encounter - Rupinder Carrillo LPN - 10/28/2020 8:56 AM CDT buprenorphine (SUBUTEX) 8 MG PA completed per CM, sent to insurance plan as urgent request [place]: [id number] [employer] at [phone]. ID: [id number] documented in this encounter Plan of Treatment Not on filedocumented as of this encounter Goals Goal Patient Goal Associated Recent Patient-Stated? Author Type Problems Progress secure housing General Yes Melissa Coronado, DNP, COIL MACHINE SUPERVISOR, BOOK AUTHOR Note: Formatting of this note might be d ifferent from the original. - has applied for several housing lists; waiting to hear back, wants to be near family Quit using tobacco (cigarettes, Tobacco Use No Melissa Coronado, JUAN DIEGO, COIL MACHINE SUPERVISOR, smokeless, etc) BOOK AUTHOR Note: Formatting of this note might be d ifferent from the original. Will use nicorette gum in case of breakt hrough craving. Will find some candy or suckers to use d uring group to occupy her hands/oral fixation documented as of this encounter Visit Diagnoses Not on filedocumented in this encounter Care Teams Brush Head Maker Relationship Specialty Start Date End Date None, Pcp PCP - General Law Firm Receptionist 02/06/[address] [place] [phone] documented as of this encounter
--- OUTSIDE RECORDS SUMMARY | 2022-01-14 01:43 | XMS_ITS | Encounter Summary ---
:1990 Author Organization [facility] Address [address] [place] [address] Care Team Providers Name Role Phone None, Pcp Primary Care Provider Unavailable Reason for Visit Reason Onset Date Comments Follow Up Appt 10/24/2020 Encounter Details Date Type Department Care Team Description 10/24/2020 Telephone SE MEDICATION ASSISTED Gayla Estrada, Follow Up Appt TREATMENT AGENT TELEGRAPHER [address] [facility] [address] [place] [address] [place], [place] [phone] Social History Tobacco Use Types Packs/Day Years [...] 03/21/2020 relatives? How often do you attend orthodoxy or advent Not asked 03/21/2020 services? Do you belong to any clubs or organizations such as Argelia schilling 03/21/2020 orthodoxy groups, unions, fraternal or athletic groups, or [...] this encounter Miscellaneous Notes Telephone Encounter - Gayla Estrada LPN - 10/24/2020 12:33 PM CDT Patient contacts the [facility] Clinic explaining that she is in need of rescheduling her follow up appt from today til Tuesday d/t childcare issues. Patient explains [facility] Patient was rescheduled to Tuesday at 3pm with lab prior. documented in this encounter Plan of Treatment Not on filedocumented as of this encounter Goals Goal Patient Goal Associated Recent Patient-Stated? Author Type Problems Progress secure housing General Yes Melissa Coronado, DNP, AUTOMOTIVE GENERAL SALES MANAGER, TANK FARM ATTENDANT Note: Formatting of this note might be d ifferent from the original. - has applied for several housing lists; waiting to hear back, wants to be near family Quit using tobacco (cigarettes, Tobacco Use No Melissa Coronado, DNP, AUTOMOTIVE GENERAL SALES MANAGER, smokeless, etc) TANK FARM ATTENDANT Note: Formatting of this note might be d ifferent from the original. Will use nicorette gum in case of breakt hrough craving. Will find some candy or suckers to use d uring group to occupy her hands/oral fixation documented as of this encounter Visit Diagnoses Not on filedocumented in this encounter Care Teams Director Of Retail Marketing Relationship Specialty Start Date End Date None, Pcp PCP - General Mica Spreader [birth year][address] [place] [phone] documented as of this encounter
--- OUTSIDE RECORDS SUMMARY | 2022-01-14 01:43 | XMS_ITS | Encounter Summary ---
:1990 Author Organization [facility] Address [address] [place] [address] Care Team Providers Name Role Phone None, Pcp Primary Care Provider Unavailable Reason for Visit Reason Comments MAT Clinic Follow Up Encounter Details Date Type Department Care Team Description 09/26/2020 Office Visit SE MEDICATION ASSISTED Omid Morales, Sol oid use disorder, TREATMENT PA-C moderate, in early [address] [place] remission[place] [address] [place], [place] maintenance therapy [phone] ([facility]) Social History Tobacco Use Types Packs/Day Years [...] 03/21/2020 relatives? How often do you attend congregational or shinto Not asked 03/21/2020 services? Do you belong to any clubs or organizations such as Not chinmay schilling 03/21/2020 congregational groups, unions, fraternal or athletic groups, or [...] Sign Reading Time Taken Comments Blood Pressure 126/75 09/26/2020 12:25 PM CDT other Pulse 79 09/26/2020 12:25 PM CDT Temperature 36.6 ??C (97.8 ??F) 09/26/2020 12:25 PM CDT Respiratory Rate - - Oxygen Saturation 98% 09/26/2020 12:25 PM CDT Inhaled Oxygen Concentration - - Weight - - Height - - Body Mass Index - - documented in this encounter Patient Instructions Patient InstructionsOmid Morales PA-C - 09/26/2020 1:00 PM CDT Continue Subutex 8 mg and 2 mg twice daily. Follow up on Tuesday with Omid Morales on 10/24/2020 with lab prior. Call MAT clinic at [phone] with any questions or concerns. documented in this encounter Progress Notes Omid Morales PA-C - 09/26/2020 1:00 PM CDT MAT Clinic Follow Up Note Discussion Date: 09/26/2020 1:02 PM CHIEF COMPLAINT: Anjali presents for MAT Clinic follow up visit for management of opioid use disorder. Last visit: 08/29/2020 She has been taking Suboxone as prescribed: Yes Current total daily dose is 20 mg Suboxone film/tab count is within range: Yes Stores Suboxone securely: Yes Used any mood altering drugs since last visit: No Cravings for narcotics: No Suboxone side effects: No (although had to take suboxone vs subutex and did have some edema) Urine Toxicology: Expected results Pt is a 30 yo female who presents for buprenorphine follow-up. Stable with 10 mg twice daily Subutex. No cravings, no use. Currently 38W6d with best Estimated Date of Delivery: 10/04/20 by 8-week ultrasound. She is following with [facility] and has met with anesthesia for delivery planning. She is still vaping nicotine, but less so. She relates she has moved into a new apartment and will be living by herself for now. [employer] Mood: good, excited Sleep: not discussed Appetite: normal, no concerns Employment status changes: not discussed Housing: new apartment Current life stressors: not discussed Libido: not discussed Daily Functioning/ADLs: no concerns or changes Social Support: not discussed Recovery Activities: none at this time [employer] Her leisure activities include... not discussed Her current coping skills/methods... not discussed Meaningful spiritual practices or beliefs... not discussed ASSESSMENT: Problem List Items Addressed This Visit Other Opioid use disorder, moderate, in early remission, on maintenance therapy (HCC) Overview 04/23/20 RUDS at each visit, negative 04/23/2020.-MSR Last UDS negative 05/22/2020 Transfer of care to the MAT clinic for ongoing buprenorphine therapy 04/17/2020 Currently on 20 mg Subutex daily Plan made to deliver at [place] for visits until 36 weeks, then transfered to [facility] on08/29/2020. Relevant Medications buprenorphine (SUBUTEX) 2 MG buprenorphine (SUBUTEX) 8 MG Other Relevant Orders Controlled Substance Monitoring Panel, Urine Orders Placed This Encounter Procedures ??? Controlled Substance Monitoring Panel, Urine MAT Clinic Standing Status: Future Standing Expiration Date: 09/26/2021 PLAN: Continue with MAT Clinic Treatment Program and plan of care. Patient will follow up in 4 week(s) Patient Instructions Continue Subutex 8 mg and 2 mg twice daily. Follow up on Tuesday with Omid Morales on 10/24/2020 with lab prior. Call MAT clinic at [phone] with any questions or concerns. Omid Morales PA-C documented in this encounter Plan of Treatment Not on filedocumented as of this encounter Goals Goal Patient Goal Associated Recent Patient-Stated? Author Type Problems Progress secure housing General Yes Melissa Coronado, DNP, LATHE SET UP PERSON, GLASS LATHE OPERATOR Note: Formatting of this note might be d ifferent from the original. - has applied for several housing lists; waiting to hear back, wants to be near family Quit using tobacco (cigarettes, Tobacco Use No Melissa Coronado, DNP, LATHE SET UP PERSON, smokeless, etc) GLASS LATHE OPERATOR Note: Formatting of this note might be d ifferent from the original. Will use nicorette gum in case of breakt hrough craving. Will find some candy or suckers to use d uring group to occupy her hands/oral fixation documented as of this encounter Results (ABNORMAL) Controlled Substance Monitoring Panel, Urine (10/27/2020 3:26 PM CDT) Component Value Ref Test Analysis Performed At [facility] Range Method Time Signature Barbiturates Negative Cutoff: 10/30/2020 [facility] 200 1:34 PM CDT LABORATORIES ng/mL Cocaine Negative Cutoff: 10/30/2020 [facility] 150 1:34 PM CDT LABORATORIES ng/mL Tetrahydrocannabinol Negative Cutoff: 10/30/2020 [facility] 50 ng/mL 1:34 PM CDT LABORATORIES Comment: ADDITIONAL INFORMATIO N This report is intended for use in clini iwlfred monitoring or management of patients. ??It is not inte nded for use in employment-related testing. Codeine Not Detected Cutoff: 25 ng/mL 10/30/2020 1:34 PM [facility] CDT LABORATORIES Comment: Tylenol 3 Fcqheep-6-diam-glucuronide Not Detected Cutoff: 100 10/31/19 21 [facility] ng/mL 1:34 PM CDT LABORATORIES Comment: Metabolite of codeine Morphine Urine Not Detected Cutoff: 25 10/30/2020 1:34 PM [facility] ng/mL CDT LABORATORIES Comment: Emilia Perry, MS Contin; Also a minor metabolite (10%) of codeine and can be seen in low concentra tions (<2,000 ng/mL) with poppy seed ingestion. Eeqwrvyd-0-pbsq-glucuronide Not Detected Cutoff: 100 021 [facility] ng/mL 1:34 PM CDT LABORATORIES Comment: Metabolite of morphine 6-monoacetylmorphine Not Detected Cutoff: 25 10/30/2020 1:34 [facility] ng/mL PM CDT LABORATORIES Comment: Metabolite of heroin Hydrocodone Not Detected Cutoff: 25 ng/mL 10/30/2020 1:34 PM [facility] CDT LABORATORIES Comment: Lortab, Gaffney, Vicodin; Also a very phoenix r metabolite of codeine and impurity (<1%) of oxycodone. Norhydrocodone Not Detected Cutoff: 10/30/2020 1:34 PM [facility] ng/mL CDT LABORATORIES Comment: Metabolite of hydrocodone Dihydrocodeine Not Detected Cutoff: 10/30/2020 1:34 PM [facility] ng/mL CDT LABORATORIES Comment: Metabolite of hydrocodone Hydromorphone Not Detected Cutoff: 25 ng/mL 10/30/2020 1:34 PM [facility] CDT LABORATORIES Comment: Dilaudid, Exalgo; Also a metabolite of h ydrocodone and a minor (<5%) metabolite of morphine. Nwicjgdgvyhww-5-dvdu-glucuronide Not Cutoff: 021 [facility] Detected 100 ng/mL 1:34 PM CDT LABORATORIES Comment: Metabolite of hydromorphone Oxycodone Not Detected Cutoff: 25 ng/mL 10/30/2020 1:34 PM [facility] CDT LABORATORIES Comment: Endocet, Percocet, Oxycontin Noroxycodone Not Detected Cutoff: 25 ng/mL 10/30/2020 1:34 [facility] CDT LABORATORIES Comment: Metabolite of oxycodone Oxymorphone Not Detected Cutoff: 25 ng/mL 10/30/2020 1:34 PM [facility] CDT LABORATORIES Comment: Numorphan, Opana; Also a metabolite of o xycodone. Bxpghjsveit-7-xuzz-glucuronide Not Detected Cutoff: 2020 [facility] 100 ng/mL 1:34 PM CDT LABORATORIES Comment: Metabolite of oxymorphone and/or naloxon e (nornaloxone) Noroxymorphone Not Detected Cutoff: 25 10/30/2020 1:34 PM [facility] ng/mL CDT LABORATORIES Comment: Metabolite of oxymorphone and/or naloxon e (nornaloxone) Fentanyl Not Detected Cutoff: 2 ng/mL 10/30/2020 1:34 PM [facility] CDT LABORATORIES Comment: Actiq, Duragesic, Fentora Norfentanyl Not Detected Cutoff: 2 ng/mL 10/30/2020 1:34 PM [facility] CDT LABORATORIES Comment: Metabolite of fentanyl Meperidine Not Detected Cutoff: 25 ng/mL 10/30/2020 1:34 PM [facility] CDT LABORATORIES Comment: Demerol Normeperidine Not Detected Cutoff: 25 ng/mL 10/30/2020 1:34 PM [facility] CDT LABORATORIES Comment: Metabolite of meperidine Naloxone Not Detected Cutoff: 25 ng/mL 10/30/2020 1:34 PM [facility] CDT LABORATORIES Comment: Narcan Suimokrv-8-fqfh-glucuronide Present (A) Cutoff: 100 10/31/19 21 [facility] ng/mL 1:34 PM CDT LABORATORIES Comment: Metabolite of naloxone Methadone Not Detected Cutoff: 25 ng/mL 10/30/2020 1:34 PM [facility] CDT LABORATORIES Comment: Dolophine EDDP Not Detected Cutoff: 25 ng/mL 10/30/2020 1:34 PM [facility] LAB[facility] Comment: Metabolite of methadone Propoxyphene Not Detected Cutoff: 25 ng/mL 10/30/2020 1:34 [facility] CDT LABORATORIES Comment: Darvon, Darvocet Norpropoxyphene Not Detected Cutoff: 25 10/30/2020 1:34 PM [facility] ng/mL CDT LABORATORIES Comment: Metabolite of propoxyphene Tramadol Not Detected Cutoff: 25 ng/mL 10/30/2020 1:34 PM [facility] CDT LABORATORIES Comment: Tradol, Ultram, Ultracet O-desmethyltramadol Not Detected Cutoff: 25 10/30/2020 1:34 [facility] ng/mL PM CDT LABORATORIES Comment: Metabolite of tramadol Tapentadol Not Detected Cutoff: 25 ng/mL 10/30/2020 1:34 PM [facility] CDT LABORATORIES Comment: Nucynta N-desmethyltapentadol Not Detected Cutoff: 50 10/30/2020 1:3 4 [facility] ng/mL PM CDT LABORATORIES Comment: Metabolite of tapentadol Piszckqote-iuwl-zbninjkuedg Not Detected Cutoff: 100 021 [facility] ng/mL 1:34 PM CDT LABORATORIES Comment: Metabolite of tapentadol Buprenorphine Present (A) Cutoff: 5 ng/mL 10/30/2020 1:34 PM [facility] CDT LABORATORIES Comment: Buprenex, Suboxone Norbuprenorphine Present (A) Cutoff: 5 ng/mL 10/30/2020 1:34 PM [facility] CDT LABORATORIES Comment: Metabolite of buprenorphine Norbuprenorphine Present (A) Cutoff: 20 10/30/2020 1:34 [facility] glucuronide ng/mL PM CDT LABORATORIES Comment: Metabolite of buprenorphine Opioid Interpretation - 10/30/2020 1:34 PM CDT [facility]ATORIES Comment: Test detected the presence of buprenorph ine and its metabolites (norbuprenorphine and norbup renorphine glucuronide) along with naloxone metabol ite (pqcryyck-9-dueg-glucuronide). Suspect u se of buprenorphine with naloxone (e.g. Suboxone) within the past three days. ADDITIONAL INFORMATIO N This test was developed and its performa nce characteristics determined by [facility] in a manner co nsistent with CLIA requirements. This test has not been madeleine ared or approved by the U.S. Food and Drug Administration. Creatinine, Urine 53.5 mg/dL 10/30/2020 1:34 [facility] PM CDT LABORATORIES Specific [place], 1.013 10/30/2020 1:34 [facility] Urine PM CDT LABORATORIES pH, Urine 6.2 10/30/2020 1:34 [facility] CDT LABORATORIES Oxidants Negative Cutoff: 200 10/30/2020 1:34 [facility] mg/L PM CDT LABORATORIES Comment Normal 10/30/2020 1:34 [facility] CDT LABORATORIES Alprazolam Not Detected Cutoff: 10 10/30/2020 1:34 [facility] ng/mL PM CDT LABORATORIES Comment: Xanax Alpha-Hydroxyalprazolam UR Not Detected Cutoff: [facility] ng/mL 1:34 PM CDT LABORATORIES Comment: Metabolite of Alprazolam Alpha-Hydroxyalprazolam Not Detected Cutoff: 50 10/30/2020 [facility] Glucuron[facility] ng/mL 1:34 PM CDT LABORATORIES Comment: Metabolite of Alprazolam Chlordiazepoxide Not Detected Cutoff: 10/30/2020 1:34 [facility] ng/mL PM CDT LAB[facility] Comment: Librium Clobazam Not Detected Cutoff: 10 ng/mL 10/30/2020 1:34 PM [facility] CDT LABORATORIES Comment: Frisium, Onfi N-Desmethylclobazam Not Detected Cutoff: 10/30/2020 1:34 [facility] ng/mL PM CDT LABORATORIES Comment: Metabolite of Clobazam Clonazepam Lvl Not Detected Cutoff: 10/30/2020 1:34 PM [facility] ng/mL CDT [facility] Comment: Klonopin, Rivotril 7-Aminoclonazepam Not Detected Cutoff: 10/30/2020 1:34 [facility] ng/mL PM CDT LAB[facility] Comment: Metabolite of Clonazepam Diazepam UR Not Detected Cutoff: 10/30/2020 1:34 PM [facility] Quant ng/mL CDT LABORATORIES Comment: Valium Nordiazepam Not Detected Cutoff: 10 ng/mL 10/30/2020 1:34 PM [facility] CDT LABORATORIES Comment: Metabolite of Chlordiazepoxide, Diazepam , or Prazepam. Flunitrazepam Not Detected Cutoff: 10 ng/mL 10/30/2020 1:34 PM [facility] CDT LABORATORIES Comment: Rohypnol 7-Aminoflunitrazepam Not Detected Cutoff: 10/30/2020 1:34 [facility] ng/mL PM CDT LABORATORIES Comment: Metabolite of Flunitrazepam Flurazepam Not Detected Cutoff: 10 ng/mL 10/30/2020 1:34 PM [facility] CDT LABORATORIES Comment: Dalmane 2- hydroxy ethyl Not Detected Cutoff: 10/30/2020 1:34 [facility] flurazepam ng/mL PM CDT LABORATORIES Comment: Metabolite of Flurazepam Lorazepam Not Detected Cutoff: 10 ng/mL 10/30/2020 1:34 PM [facility] CDT LABOR[facility]IES Comment: Ativan Lorazepam Not Detected Cutoff: 50 10/30/2020 1:34 [facility] Glucuronide ng/mL PM CDT LABORATORIES Comment: Metabolite of Lorazepam Midazolam Not Detected Cutoff: 10 ng/mL 10/30/2020 1:34 PM [facility] CDT LABORATORIES Comment: Versed Alpha-Hydroxy Not Detected Cutoff: 10 10/30/2020 1:34 [facility] Midazolam ng/mL PM CDT LABORATORIES Comment: Metabolite of Midazolam Oxazepam Not Detected Cutoff: 10 ng/mL 10/30/2020 1:34 PM [facility] CDT LABORATORIES Comment: Serax; Also a metabolite of Chlordiazepo xide, Diazepam, or Temazepam. Oxazepam Not Detected Cutoff: 50 10/30/2020 1:34 [facility] Glucuronide ng/mL PM CDT LABORATORIES Comment: Metabolite of Oxazepam Prazepam, urine Not Detected Cutoff: 10/30/2020 1:34 PM [facility] ng/mL CDT LABORATORIES Comment: Centrax Temazepam Not Detected Cutoff: 10 ng/mL 10/30/2020 1:34 PM [facility] CDT LABORATORIES Comment: Restoril; Also a metabolite of Diazepam. Temazepam Not Detected Cutoff: 50 10/30/2020 1:34 [facility] Glucuronide ng/mL PM CDT LABORATORIES Comment: Metabolite of Temazepam Triazolam Not Detected Cutoff: 10 ng/mL 10/30/2020 1:34 PM [facility] CDT LABORATORIES Comment: Halcion Alpha-Hydroxy Not Detected Cutoff: 10/30/2020 1:34 [facility] Triazolam ng/mL PM CDT LABORATORIES Comment: Metabolite of Triazolam Zolpidem Not Detected Cutoff: 10 ng/mL 10/30/2020 1:34 PM [facility] CDT LABORATORIES Comment: Ambien Zolpidem Not Detected Cutoff: 10/30/2020 1:34 [facility] Hmepxr-3-Eoyiigtdac acid ng/mL PM CDT LABOR ATORIES Comment: Metabolite of Zolpidem Benzodiazepine, Interp - 10/30/2020 1:34 P M CDT [facility]ATORIES Comment: No benzodiazepines were detected. The ab sence of expected drug(s) and/or drug metabolite(s) may in dicate non-compliance, altered pharmacokinetics , inappropriate timing of specimen collection relative t o drug administration, diluted/adulterated urin e, or limitations of testing. ADDITIONAL INFORMATIO N This test was developed and its performa nce characteristics determined by [facility] in a manner co nsistent with CLIA requirements. This test has not been madeleine ared or approved by the U.S. Food and Drug Administration. Methamphetamine Not Detected Cutoff: 100 10/30/2020 1:34 PM [facility] ng/mL CDT LABORATORIES Comment: Desoxyn Amphetamines Not Detected Cutoff: 10/30/2020 1:34 PM [facility] ng/mL CDT LAB[facility] Comment: Dyanavel XR, Adzenys ER, Adderall, Vyvan se; Also a metabolite of methamphetamine 3,4 Not Cutoff: 10/30/2020 [facility] Methylenedioxymethamphetamine Detected 100 ng/mL 1:34 PM CD T LABORATORIES 3,4 Not Cutoff: 10/30/2020 [facility] Hgjabfmsosdkdk-R-eymxhmrwfalajot Detected 100 ng/mL 1:34 PM CDT LABORATORIES e (MDEA) 3,4 Methylenedioxyamphetamine Not Cutoff: 10/30/2020 [facility] Detected 100 ng/mL 1:34 PM CDT LABORATORIES Comment: Also a metabolite of MDMA and/or MDEA Ephedrines Not Detected Cutoff: 100 10/30/2020 1:34 [facility] ng/mL PM CDT LABORATORIES Psuedoephederine Not Detected Cutoff: 10/30/2020 1:34 [facility] ng/mL PM CDT LABORATORIES Comment: Sudafed Phentermine Not Detected Cutoff: 100 10/30/2020 1:34 PM [facility] ng/mL CDT LABORATORIES Comment: Adipex-P, Lomaira, Qsymia Phencyclicine (PCP) Not Detected Cutoff: 10/30/2020 1:34 [facility] ng/mL PM CDT LABORATORIES Methylphenidate Not Detected Cutoff: 10/30/2020 1:34 [facility] ng/mL PM CDT LABORATORIES Comment: Ritalin, Concerta Ritalinic Acid Not Detected Cutoff: 10/30/2020 1:34 PM [facility] ng/mL CDT LABORATORIES Comment: Metabolite of methylphenidate Stimulant Interpretation - 10/30/2020 1:34 PM CDT [facility] Comment: No stimulants were detected. The absence of expected drug(s) and/or drug metabolite(s) may in dicate non-compliance, altered pharmacokinetics , inappropriate timing of specimen collection relative t o drug administration, diluted/adulterated urin e, or limitations of testing. ADDITIONAL INFORMATIO N This test was developed and its performa nce characteristics determined by [facility] in a manner co nsistent with CLIA requirements. This test has not been madeleine ared or approved by the U.S. Food and Drug Administration. Test Performed by: [facility] [address] [place] [address] 51 Customer Care Associate: Benigno Selby M.D. Ph. D.; CLIA# [id number] List patient's Not provided 10/30/2020 1:34 PM CDT [facility] LABORATORIES Comment: ADDITIONAL INFORMATIO N Accuracy and completeness of declared me dications on reports solely dependent on information submitted by client. Specimen Anatomical Collection Method Collection Time Receive d Time (Source) Location / / Volume Laterality Urine 10/27/2020 3:26 PM 3:50 CDT PM CDT Omid Morales PA-C LAB URINE ORDERABLES Performing Organization Address City/State/ZIP Code Phon e Number [facility] see result attachment for specific address documented in this encounter Visit Diagnoses Diagnosis Opioid use disorder, moderate, in early remission, on maintenance therapy (HCC) documented in this encounter Care Teams Business Development Agent Relationship Specialty Start Date End Date None, Pcp PCP - General Compressed Yeast Supervisor 02/06/19 [address] [place] [phone] documented as of this encounter
--- OUTSIDE RECORDS SUMMARY | 2022-01-14 01:43 | XMS_ITS | Encounter Summary ---
:1990 Author Organization [facility] Address [address] [place] [id number] Care Team Providers Name Role Phone None, Pcp Primary Care Provider Unavailable Reason for Visit Reason Comments NOB Phone Call Telephone Visit Encounter Details Date Type Department Care Team Description 05/26/2021 Office Visit [facility] Previous section [facility] (Primary Dx) [address] [place] [address] [id number] Social History Tobacco Use Types Packs/Day Years [...] 03/21/2020 relatives? How often do you attend jehovah's witness or jain Not asked 03/21/2020 services? Do you belong to any clubs or organizations such as Not chinmay schilling 03/21/2020 jehovah's witness groups, unions, fraternal or athletic groups, or [...] place to sleep or slept in a intermediate (including now)? Education Answer Date Recorded What is the highest level of school you have High school gra tono 03/21/2020 completed or the highest degree you have received? Sex Assigned at Date Recorded Not on file COVID-19 Exposure Response Date Recorded In the last month, have you been in contact with No / Unsure 05/26/2021 1:11 PM MECHANICAL EXPERT someone who was confirmed or suspected to have Coronavirus / COVID-19? documented as of this encounter Last Filed Vital Signs Vital Sign Reading Time Taken Comments Blood Pressure - - Pulse - - Temperature - - Respiratory Rate - - Oxygen Saturation - - Inhaled Oxygen Concentration - - Weight 90.6 kg (199 lb 11.8 oz) 05/26/2021 12:43 PM MECHANICAL EXPERT Height 165 cm (5' 4.96) 05/26/2021 12:43 PM MECHANICAL EXPERT Body Mass Index 33.28 05/26/2021 12:43 PM MECHANICAL EXPERT documented in this encounter Patient Instructions Patient InstructionsJAMEE Davison - 05/26/2021 1:00 PM CST RN completed NOB phone call. Congratulations and thank you for choosing [facility] to provide care to you and your growing family! We wanted to send you out some basic information we would like you to know before your upcoming appointments. If you experience vaginal spotting or bleeding, pain, or other urgent concerns, please call us at [phone]- DO NOT send a Tenroxhart messageas these can take 24 hours (normal business days) to get a response. Things to plan for in the coming weeks: 1. Your nurse phone call. We will go through your history, family history and screening forms. This helps get your chart ready for when you will see your OB provider! 2. Your initial new OB appointment with your provider. Start to meet your healthcare team, have a physical exam, receive education about , and plan of care and lab work. At this appointment you may also be able to hear your little one's heartbeat! 3. Here is the web address for our online education platform called [email or web address]: please use this to findfurther information: [email or web address] _[email or web address] Fish and Seafood Information Fish and seafood are great sources of healthy fats, such as [place] 3's and a lean protein. Some fish and seafood can contain higher levels of mercury, which can be harmful in large amounts. Please see the following link information for amounts and types of fish and seafood to eat during . https://extension.[facility].edu/anxzfhxuii-cuk-dsgfvhaty/otzrdw-znhudpja-fuogcvmts-fis h Listeria Listeria is a food borne illness that can be harmful for you and baby. It is typically found in foods like deli meats, uncooked hot dogs, unpasteurized milk and cheeses, baker' and salads made at the grocery store. You can still have these products, making sure your milks and cheeses have been pasteurized, hot dogs and deli meats cooked until steaming and hot, baker' and salads made at home. Please seethe following link for more information. https://www.cdc.gov/listeria/risk-groups/-women.html Toxoplasmosis: Toxoplasmosis is a parasitic infection that can cause illness in moms and their unborn babies. It is spread through contact with contaminated soil, cat litter and unwashed fruits and vegetables. Ways to prevent infection include having someone else change / clean the litter box, wearing gloves when working with soil or gardening, washing hands before eating or washing your face, and washing fruits and vegetables before eating, cutting or cooking. Please see the following link for further information: https://www.cdc.gov/parasites/toxoplasmosis/gen_info/.html Blve-hlk-Glpwwgo Medications Symptom Generic Medication Brand Name Examples Comments Headache/Fever/ Chills Acetaminophen Tylenol Do not take ibuprofen, aspirin, naprosyn Nasal/Sinus Congestion Oxymetazoline HCL Afrin Nasal [place]ix ? ? Avoid use > 3 days ??? Saline [place] Charlevoix Pseudoephedrine HCL Sudafed ??? Take immediate release product Cough Cough Drops Robitussin Guaifenesin Robitussin Guaifenesin/Dextromethorpan Robitussin DM Indigestion/ Heartburn Calcium Carbonate Maalox Tablets, Tums, Rolaids ??? Short acting - provides immediate relief ??? Magnesium Hydroxide Maalox Liquid Aluminum Hydroxide Mylanta Liquid Simethicone Gas-X Famotidine Pepcid AC ??? Long acting - provides ferry terminal agent relief ??? Cimetidine Tagamet Omeprazole Prilosec Constipation Magnesium Hydroxide Milk of Magnesia Psyllium Metamucil Fibercon Allergies Chlorpheniramine Maleate Chlor - Trimeton Diphenhydramine Benadryl Loratadine Claritin/Alavert Vaginal Yeast Infections Clotrimazole Mycelex Miconazole Nitrate Monistat Skin Itching/Hives Calamine Calamine Colloidal Oatmeal Aveeno Pramoxine HCL/Calamine Caladryl 1% Hydrocortizone cream or ointment ? ? Short term use, < 14 days ??? Vanicream Hemorrhoids Pramoxine HCL/Balsam Anusol Preparation H Stool Softener Docusate Sodium Colace Sleep Aids Doxylamine Unisom tablet Diphenhydramine Benadryl Acetaminophen and Diphenhydramine Tylenol PM Nausea Information: Many women experience nausea during their . Growing a baby is hard work! Please know that we are here to help answer questions as well, but these are some great ideas to get you feeling better. We do have a few other ideas about what you can do when you are feeling sick to your stomach during : 1. Evangelina flavored candy (like Preggie Pops), evangelina snap cookies, or evangelina antwan. 2. Quease EASE - This is a stick with essential oils in it that you smell. 3. Sea Band - A bracelet with a bead in it that presses in a special area on your wrist. 4. Vitamin B6 25mg four times a day with Unisom SLEEPTABS [doxylamine succinate], not SLEEPGELS [diphenhydramine, which is Benadryl, which won't hurt but might not help as much]: 50mg at bedtime 5. Try frequent, healthy snacking throughout the day. 6. Avoid spicy, greasy, and heavy foods. 7. Take your vitamin at the time of day when you don't feel sick to your stomach. 8. Keep dry cereal/crackers next to your bed and try those if you are feeling sick. If you are unable to keep down foods or fluids for over 24 hours, have been urinating less and the urine is dark in color you need to seek immediate medical attention. ANICAL EXPERT documented in this encounter Progress Notes JAMEE Davison - 05/26/2021 1:00 PM CST New OB Intake Phone Call Patient's last menstrual period was 04/16/2021 (within days). Positive test date: 05/22/21 Does the patient have nausea or vomiting? Yes and offered patient education Nutrition consult offered? No OB History Para Term AB Living 4 [...] GAY Comments: NOT parenting. With her grandparent. History of previous (s): Yes, location: [place] History of loss - 2nd trimester or later: No Protocol initiated: Orders Placed This Encounter Procedures ??? OB US limited Past Medical History: Thyroid Disorder: No Diabetes: No High Blood Pressure: No Low Weight: No Past Medical History: Diagnosis Date ??? Anxiety 12/27/2014 ??? Chronic pain syndrome 05/31/2016 ??? Combined drug dependence, continuous abuse (HCC) 02/25/2020 As of 04.23.19 [place] [facility] Per 02.25.20 NOB @[facility]: ??? Drug use: Yes Types: Methamphetamines, Heroin, Cocaine Comment: Last use yesterday 01/30/2020 heroin, methamphetamin (Tuesday01/29/2020) 02.25.20 RUDS - Buprenorphine, U+ only #2 Dependence Polysubstance Continuous (HCC) Thepatient is followed by her addiction physician, Dr. Anthony Rebolledo ([phone]) and has an ??? Disorder of arteries and arterioles (HCC) 02/01/2019 04.23.19 entry Patient also was admitted to [facility] with strokelike symptoms February 01 and . 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 Has been maintained on aspirin. No further symptoms. 02.01.19 [facility] Result Impression 1. No acute intracranial findings. [...] 03/21/2020 Dating by 02.25.20 8+2 -> EDC 10.04.20 @ [facility] Social History: Tobacco use: Current, vaping and declined smoking cessation referral. Alcohol use, after positive test: No. Drug use (including marijuana): No. History of substance abuse: History of cocaine, marijuana, ecstacy, and heroin use. Reports relapsing after the of her last child but has now been sober since 01/29/21. 4 Ps Questionnaire Yes No Did any of your parents have a problem with alcohol or other drug use? X Does your partner have a problem with alcohol or drug use? X In the past, have you had difficulties in your life because of alcohol or other drugs, including prescription medications? X In the past month, have you drunk any alcohol or used other drugs? X Patient risk score based on 4 Ps responses: MODERATE-HIGH RISK: (Pt answered 'yes' to Past, 'yes' toPregnancy, and/or 'yes' to >2 Ps): The patient was given the 4 Ps screening tool and the score placed them into the moderate-high risk zone of use. The positive screening result was forwarded to theprovider. Patient reports History of cocaine, marijuana, ecstacy, and heroin use. Reports relapsing after the of her last child but has now been sober since 01/29/21.Currently on Subutex. . Social History Socioeconomic History ??? Marital status: Single Spouse name: None ??? Number of children: 2 ??? Years of education: None ??? Highest education level: High school graduate Occupational History ??? Occupation: Unemployed Tobacco Use ??? Smoking status: Former Smoker Packs/day: 1.00 Types: Cigarettes Quit date: 03/2020 Years since quittin.2 ??? Smokeless tobacco: Never Used Vaping Use ??? Vaping Use: Every day ??? Start date: 04/25/2020 ??? Substances: Nicotine Substance and Sexual Activity ??? Alcohol use: Not Currently Comment: Sober since 2014 ??? Drug use: Not Currently Types: Amphetamines, Heroin, Marijuana, Cocaine, MDMA (ecstacy) Comment: Last used Heroin 01/29/21 (Heroin is drug of choice per Anjali) ??? Sexual activity: Yes Partners: Male Other Topics Concern ??? None Social History Narrative Anjali lives with her boyfriend/fob, Jonathan Ch, and their seven month old son. Her oldest son lives with his paternal grandmother and has lived there for several years now. Social Determinants of Health Financial Resource Strain: Low Risk ??? Difficulty of Paying Living Expenses: Not very hard Food Insecurity: No Food Insecurity ??? Worried About Running Out of Food in the Last Year: Never true ??? Ran Out of Food in the Last Year: Never true Transportation Needs: No Transportation Needs ??? Lack of Transportation (Medical): No ??? Lack of Transportation (Non-Medical): No Physical Activity: Insufficiently Active ??? Days of Exercise per Week: 4 days ??? Minutes of Exercise per Session: 20 min Stress: No Stress Concern Present ??? Feeling of Stress : Not at all Social Connections: Unknown ??? Frequency of Communication with Friends and Family: Not on file ??? Frequency of Social Gatherings with Friends and Family: Not on file ??? Attends Protestant Services: Not on file ??? Active Member of Clubs or Organizations: Not on file ??? Attends Club or Organization Meetings: Not on file ??? Marital Status: Living with partner Intimate Partner Violence: Not At Risk ??? Fear of Current or Ex-Partner: No ??? Emotionally Abused: No ??? Physically Abused: No ??? Sexually Abused: No Housing Stability: High Risk ??? Unable to Pay for Housing in the Last Year: No ??? Number of Places Lived in the Last Year: 3 ??? Unstable Housing in the Last Year: No Surgical History: Past Surgical History: Procedure Laterality Date ??? SECTION, LOW TRANSVERSE ??? TONSILLECTOMY ??? WRIST SURGERY Right Cyst removal Current medications Current Outpatient Medications on File Prior to Visit Medication Sig ??? acetaminophen (TYLENOL) 500 MG tablet Take 1,000 mg by mouth every 6 (six) hours if needed for mild pain ??? buprenorphine (SUBUTEX) 8 MG 16 mg ??? DULoxetine (CYMBALTA) [address] capsule Take 40 mg by mouth 1 (one) time each day Do not crush orchew. ??? Vit-Fe Fumarate-FA (KP MULTIVITAMINS PO) Take by mouth ??? Vyvanse 30 MG capsule Take by mouth 1 (one) time each day ??? albuterol HFA (Ventolin HFA) 108 (90 Base) MCG/ACT inhaler Inhale 2 puffs every 4 (four) hours if needed for wheezing or shortness of breath (Patient not taking: Reported on 05/26/2021) ??? aspirin EC 81 MG EC tablet Take 81 mg by mouth daily (Patient not taking: Reported on 05/26/2021) ??? bisacodyl (DULCOLAX) 10 MG suppository INSERT ONE SUPPOSITORY INTO THE RECTUM ONCE DAILY PRN (Patient not taking: Reported on 05/26/2021) ??? ibuprofen (ADVIL) 200 MG tablet Take 600 mg by mouth every 6 hours (Patient not taking: Reportedon 05/26/2021) ??? norethindrone-ethinyl estradiol (Loestrin 04/30, ,) 1-20 MG-MCG per tablet Take 1 tablet by mouth 1 (one) time each day (Patient not taking: Reported on 05/26/2021) ??? Suboxone 8-2 MG per SL film DISSOLVE 1 FILM UNDER THE TONGUE TWICE DAILY No current facility-administered medications on file prior to visit. Vitamins: Yes Allergies Allergies Allergen Reactions ??? Dog Epithelium Allergy Skin Test Other (see comments) Watering eyes ??? Dust Mite Extract Other (see comments) Watering eyes, sneezing ??? Ragweed Other (see comments) Water eyes, sneezing ??? Sulfa Antibiotics Other (see comments) Height: 1.65 m (5' 4.96) Weight: 90.6 kg (199 lb 11.8 oz) Body mass index is 33.28 kg/m??. Health concerns: History of , History of substance abuse, Currently on Subutex, History of Hepatitis C, Anxiety, Vaping Substance Anticipates delivery at [facility]: unknown; Anjali is unsure if she will delivery at [facility] or [facility]. May transfer care later for baby to have access to a NICU. Established [place] care in the past: Yes Preferred Provider: OB Services New OB Intake completed Next scheduled appointment at [facility] MILL PLATFORM SUPERVISOR: 06/25/2021 New OB transfer from another organization: No Has patient previously given at [facility]? No Authorizing NOB protocol provider: Dr. Gauri Bergman invitation sent: Yes * Message forwarded to OB provider on-call: Anjali scored in the high risk category on her 4 P's Questionnaire. Please advise if you would like to see her sooner than 10 weeks to discuss her current medications in . Thank you! * ANICAL EXPERT documented in this encounter Plan of Treatment Not on filedocumented as of this encounter Goals Goal Patient Goal Associated Recent Patient-Stated? Author Type Problems Progress secure housing General Yes Melissa Coronado, JUAN DIEGO, TILE TRIMMER, SHIP CAPTAIN Note: Formatting of this note might be d ifferent from the original. - has applied for several housing lists; waiting to hear back, wants to be near family Quit using tobacco (cigarettes, Tobacco Use No Melissa Coronado, JUAN DIEGO, TILE TRIMMER, smokeless, etc) SHIP CAPTAIN Note: Formatting of this note might be d ifferent from the original. Will use nicorette gum in case of breakt hrough craving. Will find some candy or suckers to use d uring group to occupy her hands/oral fixation documented as of this encounter Procedures Procedure Name Priority Date/Time Associated Comments Diagnosis US OB LESS THAN 14 Routine 06/11/2021 3:16 PM Previous cesarea n Results for this WEEKS INCLUDING MECHANICAL EXPERT section procedure ar e in TRANSVAGINAL the results section. documented in this encounter Results Ultrasound OB less than 14 weeks including transvaginal (06/11/2021 3:16 PM MECHANICAL EXPERT) Anatomical Region Laterality Modality Body Ultrasound Specimen (Source) Anatomical Collection Method Collection Time Re ceived Time Location / / Volume Laterality 06/11/2021 3:16 PM MECHANICAL EXPERT Impressions 06/11/2021 3:26 PM MECHANICAL EXPERT IMPRESSION: There is a single live ??7w6d intrauteri ne gestation as described above. Narrative 06/11/2021 3:26 PM MECHANICAL EXPERT INDICATION: History of COMPARISON: None available. FINDINGS: There is a single live intrauterine gest ation with crown-rump length of 1.50 cm 7w6d and heart rate of 150 bpm. Ultrasound HAZEL is 01/22/2022. Bilaterally the ovaries show no abnormal ity. No adnexal mass or free pelvic fluid. Uterus size: 7.9 cm x 5.5 cm x 7.5 cm Procedure Note Farheen Lou, DO - 06/11/2021F ormatting of this note might be different from the original. INDICATION: History of COMPARISON: None available. FINDINGS: There is a single live intrauterine gest ation with crown-rump length of 1.50 cm 7w6d and heart rate of 150 bpm. Ultrasound HAZEL is 01/22/2022. Bilaterally the ovaries show no abnormal ity. No adnexal mass or free pelvic fluid. Uterus size: 7.9 cm x 5.5 cm x 7.5 cm IMPRESSION: There is a single live 7w6d intrauterine gestation as described above. Pooja Astorga MD IMG OB US PROCEDURES documented in this encounter Visit Diagnoses Diagnosis Previous section - Primary Other postprocedural status documented in this encounter Care Teams Psychiatric Specialist Relationship Specialty Start Date End Date None, Pcp PCP - General [place] 02/06/[address] [place] [phone] documented as of this encounter
--- OUTSIDE RECORDS SUMMARY | 2022-01-14 01:43 | XMS_ITS | Encounter Summary ---
:1990 Author Organization [facility] Address [address] [place] [address] Care Team Providers Name Role Phone None, Pcp Primary Care Provider Unavailable Encounter Details Date Type Department Care Team Description 05/14/2021 Orders Only SE Asthma & Allergy Boby Byrne MD Cough (Primary Dx) [address] [facility] [address] [place] [address] [place], [place] [phone] (Wo rk) Social History Tobacco Use Types [...] 03/21/2020 relatives? How often do you attend muslim or baptism Not asked 03/21/2020 services? Do you belong to any clubs or organizations such as Argelia schilling 03/21/2020 muslim groups, unions, fraternal or athletic groups, or [...] housing General Yes Melissa Coronado, JUAN DIEGO, POLICYHOLDER INFORMATION CLERK, PROCESSING ARCHIVIST Note: Formatting of this note might be d ifferent from the original. - has applied for several housing lists; waiting to hear back, wants to be near family Quit using tobacco (cigarettes, Tobacco Use No Melissa Coronado, JUAN DIEGO, POLICYHOLDER INFORMATION CLERK, smokeless, etc) PROCESSING ARCHIVIST Note: Formatting of this note might be d ifferent from the original. Will use nicorette gum in case of breakt hrough craving. Will find some candy or suckers to use d uring group to occupy her hands/oral fixation documented as of this encounter Visit Diagnoses Diagnosis Cough - Primary documented in this encounter Care Teams Olive Grader Relationship Specialty Start Date End Date None, Pcp PCP - General Mechanical Engineering Technician 02/06/19 [address] [place] [phone] documented as of this encounter
--- OUTSIDE RECORDS SUMMARY | 2022-01-14 01:43 | XMS_ITS | Encounter Summary ---
:[address] [facility] Address [address] [place] [address] Care Team Providers Name Role Phone None, Pcp Primary Care Provider Unavailable Reason for Visit Reason Onset Date Comments Reschedule Appointment 10/06/2020 Encounter Details Date Type Department Care Team Description 10/06/2020 Telephone SE MEDICATION ASSISTED Gayla Estrada Reschedule Appointment TREATMENT SVanessa, ANODIZING LINE OPERATOR [address] [address] [place] [address] [place], [place] [phone] Social History Tobacco Use Types Packs/Day [...] 03/21/2020 relatives? How often do you attend oriental orthodox or anglican Not asked 03/21/2020 services? Do you belong to any clubs or organizations such as Argelia schilling 03/21/2020 oriental orthodox groups, unions, fraternal or athletic groups, [...] Telephone Encounter - Gayla Estrada LPN - 10/06/2020 12:59 PM CDT OB Resident at [place] caring for patient following her and delivery of healthy [facility] about [facility] planning for patient. Currently patient is taking dilaudid and will also be discharged home with this medication in order to control pain from her . OBResident requests we reach out to patient to plan a much sooner follow up visit with patient than her current scheduled appointment on 10/24. Attempted a call to patient, LMTCB. documented in this encounter Plan of Treatment Not on filedocumented as of this encounter Goals Goal Patient Goal Associated Recent Patient-Stated? Author Type Problems Progress secure housing General Yes Melissa Coronado, JUAN DIEGO, COIL SPRING ASSEMBLER, FOUNDER PRESIDENT AND CEO Note: Formatting of this note might be d ifferent from the original. - has applied for several housing lists; waiting to hear back, wants to be near family Quit using tobacco (cigarettes, Tobacco Use No Melissa Coronado, DNP, COIL SPRING ASSEMBLER, smokeless, etc) FOUNDER PRESIDENT AND CEO Note: Formatting of this note might be d ifferent from the original. Will use nicorette gum in case of breakt hrough craving. Will find some candy or suckers to use d uring group to occupy her hands/oral fixation documented as of this encounter Visit Diagnoses Not on filedocumented in this encounter Care Teams Seismology Technical Officer Relationship Specialty Start Date End Date None, Pcp PCP - General Dairy Manager 02/06/19 [address] [place] [phone] documented as of this encounter
--- OUTSIDE RECORDS SUMMARY | 2022-01-14 01:43 | XMS_ITS | Encounter Summary ---
:1990 Author Organization [facility] Address [address] [place] [address] Care Team Providers Name Role Phone None, Pcp Primary Care Provider Unavailable Reason for Visit Reason Onset Date Comments Missed appt 11/21/2020 Encounter Details Date Type Department Care Team Description 11/21/2020 Telephone SE MEDICATION ASSISTED Gayla Estrada, Missed appt TREATMENT HEADLIGHT ASSEMBLER [address] [facility] [address] [place] [address] [place] [address] Social History Tobacco Use Types Packs/Day [...] 03/21/2020 relatives? How often do you attend anabaptism or anabaptist Not asked 03/21/2020 services? Do you belong to any clubs or organizations such as Argelia schilling 03/21/2020 anabaptism groups, unions, fraternal or athletic groups, or [...] Telephone Encounter - Gayla Estrada LPN - 11/25/2020 12:12 PM CDT Patient returned a call to the [facility] regarding her missed appointment from 11/21. Patient explains that her and her family have been suffering from illness and did have COVID testing completed thatreturned as positive through the district clinic via [facility]. Nurse explained to patientthe process of video visits along with the required UDS completion prior, if she is able to activateher MyChart. Patient is currently under quarantine, so an extension on the UDS completion was granted until next week. Patient was given the 'Activation Code' and will return a call to our office to schedule a MyChart visit for tomorrow morning once able. Patient is out of medication at this time. Telephone Encounter - Gayla Estrada LPN - 11/21/2020 4:01 PM CDT Attempted a call to patient today regarding her missed follow up appt. LMTCB; explained the option of setting up MyChart for video visits for convenience per her provider, Melissa Coronado. Will wait fora return call to reschedule or assist in the video visit set up. documented in this encounter Plan of Treatment Not on filedocumented as of this encounter Goals Goal Patient Goal Associated Recent Patient-Stated? Author Type Problems Progress secure housing General Yes Melissa Coronado, JUAN DIEGO, LAND SURVEYOR, GEOGRAPHIC INFORMATION SYSTEMS MANAGER Note: Formatting of this note might be d ifferent from the original. - has applied for several housing lists; waiting to hear back, wants to be near family Quit using tobacco (cigarettes, Tobacco Use No Melissa Coronado, JUAN DIEGO, LAND SURVEYOR, smokeless, etc) GEOGRAPHIC INFORMATION SYSTEMS MANAGER Note: Formatting of this note might be d ifferent from the original. Will use nicorette gum in case of breakt hrough craving. Will find some candy or suckers to use d uring group to occupy her hands/oral fixation documented as of this encounter Visit Diagnoses Not on filedocumented in this encounter Care Teams Chicken Boner Relationship Specialty Start Date End Date None, Pcp PCP - General Gear Milling Machine Set Up Operator 02/06/19 [address] [place] [address] documented as of this encounter
--- OUTSIDE RECORDS SUMMARY | 2022-01-14 01:43 | XMS_ITS | Encounter Summary ---
:1990 Author Organization [facility] Address [address] [place] [address] Care Team Providers Name Role Phone None, Pcp Primary Care Provider Unavailable Encounter Details Date Type Department Care Team Description 09/26/2020 Lab SE Lab Opioid use disorder, moderat e, [address] in early remission, [place] [address] maintenance therapy ([facility]) [phone] Social History Tobacco Use Types Packs/Day Years [...] 03/21/2020 relatives? How often do you attend shinto or yazidi Not asked 03/21/2020 services? Do you belong to any clubs or organizations such as Not askbreanne schilling 03/21/2020 shinto groups, unions, fraternal or athletic groups, or [...] Type Problems Progress secure housing General Yes Meilssa Coronado, DNP, RUBBING BED OPERATOR, WASHER REPAIRMAN Note: Formatting of this note might be d ifferent from the original. - has applied for several housing lists; waiting to hear back, wants to be near family Quit using tobacco (cigarettes, Tobacco Use No Melissa Coronado, DNP, RUBBING BED OPERATOR, smokeless, etc) WASHER REPAIRMAN Note: Formatting of this note might be d ifferent from the original. Will use nicorette gum in case of breakt hrough craving. Will find some candy or suckers to use d uring group to occupy her hands/oral fixation documented as of this encounter Procedures Procedure Name Priority Date/Time Associated Diagnosis Comme [facility] CONTROLLED Routine 09/26/2020 12:18 Opioid use disorder, Res ults for this SUBSTANCES PM CDT moderate, in early procedure are in MONITORING PANEL, remission, on the [facility] URINE maintenance therapy section. (HCC) documented in this encounter Results (ABNORMAL) Controlled Substance Monitoring Panel, Urine (09/26/2020 12:18 PM CDT) Component Value Ref Test Analysis Performed At [facility] Range Method Time Signature Barbiturates Negative Cutoff: 09/30/2020 [facility] 200 6:20 AM CDT LABORATORIES ng/mL Cocaine Negative Cutoff: 09/30/2020 [facility] 150 6:20 AM CDT LABORATORIES ng/mL Tetrahydrocannabinol Negative Cutoff: 09/30/2020 [facility] 50 ng/mL 6:20 AM CDT LABORATORIES Comment: ADDITIONAL INFORMATIO N This report is intended for use in clini wilfred monitoring or management of patients. ??It is not inte nded for use in employment-related testing. Codeine Not Detected Cutoff: 25 ng/mL 09/30/2020 6:20 AM [facility] [employer] CDT LABORATORIES Comment: Tylenol 3 Eekcesm-8-ysqr-glucuronide Not Detected Cutoff: 100 10/01/19 21 [facility] ng/mL 6:20 AM CDT LABORATORIES Comment: Metabolite of codeine Morphine Urine Not Detected Cutoff: 25 09/30/2020 6:20 AM [facility] ng/mL CDT LABORATORIES Comment: Emilia Perry, MS Contin; Also a minor metabolite (10%) of codeine and can be seen in low concentra tions (<2,000 ng/mL) with poppy seed ingestion. Lvegrdsc-1-ihtf-glucuronide Not Detected Cutoff: 100 021 [facility] ng/mL 6:20 AM CDT LABORATORIES Comment: Metabolite of morphine 6-monoacetylmorphine Not Detected Cutoff: 25 09/30/2020 6:20 [facility] ng/mL AM CDT LABORATORIES Comment: Metabolite of heroin Hydrocodone Not Detected Cutoff: 25 ng/mL 09/30/2020 6:20 AM [facility] CDT LABORATORIES Comment: Lortab, [place], Vicodin; Also a very phoenix r metabolite of codeine and impurity (<1%) of oxycodone. Norhydrocodone Not Detected Cutoff: 25 09/30/2020 6:20 AM [facility] ng/mL CDT LABORATORIES Comment: Metabolite of hydrocodone Dihydrocodeine Not Detected Cutoff: 25 09/30/2020 6:20 AM [facility] ng/mL CDT LABORATORIES Comment: Metabolite of hydrocodone Hydromorphone Not Detected Cutoff: 25 ng/mL 09/30/2020 6:20 AM [facility] CDT LABORATORIES Comment: Dilaudid, Exalgo; Also a metabolite of h ydrocodone and a minor (<5%) metabolite of morphine. Epxsmijmsknsd-6-mflj-glucuronide Not Cutoff: 021 [facility] Detected 100 ng/mL 6:20 AM CDT LABORATORIES Comment: Metabolite of hydromorphone Oxycodone Not Detected Cutoff: 25 ng/mL 09/30/2020 6:20 AM [facility] CDT LABORATORIES Comment: Endocet, Percocet, Oxycontin Noroxycodone Not Detected Cutoff: 25 ng/mL 09/30/2020 6:20 A M [facility] CDT LABORATORIES Comment: Metabolite of oxycodone Oxymorphone Not Detected Cutoff: 25 ng/mL 09/30/2020 6:20 AM [facility] CDT LABORATORIES Comment: Numorphan, Opana; Also a metabolite of o xycodone. Xgskiefadfo-7-cjrf-glucuronide Not Detected Cutoff: 2020 [facility] 100 ng/mL 6:20 AM CDT LABORATORIES Comment: Metabolite of oxymorphone and/or naloxon e (nornaloxone) Noroxymorphone Not Detected Cutoff: 25 09/30/2020 6:20 AM [facility] ng/mL CDT LABORATORIES Comment: Metabolite of oxymorphone and/or naloxon e (nornaloxone) Fentanyl Not Detected Cutoff: 2 ng/mL 09/30/2020 6:20 AM [facility] CDT LABORATORIES Comment: Actiq, Duragesic, Fentora Norfentanyl Not Detected Cutoff: 2 ng/mL 09/30/2020 6:20 AM [facility] CDT LABORATORIES Comment: Metabolite of fentanyl Meperidine Not Detected Cutoff: 25 ng/mL 09/30/2020 6:20 AM [facility] CDT LABORATORIES Comment: Demerol Normeperidine Not Detected Cutoff: 25 ng/mL 09/30/2020 6:20 AM [facility] CDT LABORATORIES Comment: Metabolite of meperidine Naloxone Not Detected Cutoff: 25 ng/mL 09/30/2020 6:20 AM [facility] CDT LABORATORIES Comment: Narcan Fwlsgabe-0-hnyg-glucuronide Not Detected Cutoff: 100 021 [facility] ng/mL 6:20 AM CDT LABORATORIES Comment: Metabolite of naloxone Methadone Not Detected Cutoff: 25 ng/mL 09/30/2020 6:20 AM [facility] CDT LABORATORIES Comment: Dolophine EDDP Not Detected Cutoff: 25 ng/mL 09/30/2020 6:20 AM C [facility] LABORATORIES Comment: Metabolite of methadone Propoxyphene Not Detected Cutoff: 25 ng/mL 09/30/2020 6:20 A M [facility] CDT LABORATORIES Comment: Darvon, Darvocet Norpropoxyphene Not Detected Cutoff: 25 09/30/2020 6:20 AM [facility] ng/mL CDT LABORATORIES Comment: Metabolite of propoxyphene Tramadol Not Detected Cutoff: 25 ng/mL 09/30/2020 6:20 AM [facility] CDT LABORATORIES Comment: Tradol, Ultram, Ultracet O-desmethyltramadol Not Detected Cutoff: 25 09/30/2020 6:20 [facility] ng/mL AM CDT LABORATORIES Comment: Metabolite of tramadol Tapentadol Not Detected Cutoff: 25 ng/mL 09/30/2020 6:20 AM [facility] CDT LABORATORIES Comment: Nucynta N-desmethyltapentadol Not Detected Cutoff: 50 09/30/2020 6:2 0 [facility] ng/mL AM CDT LABORATORIES Comment: Metabolite of tapentadol Fzysczolkv-vpvr-ffkzhzviwxk Not Detected Cutoff: 100 021 [facility] ng/mL 6:20 AM CDT LABORATORIES Comment: Metabolite of tapentadol Buprenorphine Present (A) Cutoff: 5 ng/mL 09/30/2020 6:20 AM [facility] CDT LABORATORIES Comment: Buprenex, Suboxone Norbuprenorphine Present (A) Cutoff: 5 ng/mL 09/30/2020 6:20 AM [facility] CDT LABORATORIES Comment: Metabolite of buprenorphine Norbuprenorphine Present (A) Cutoff: 20 09/30/2020 6:20 [facility] glucuronide ng/mL AM CDT LABORATORIES Comment: Metabolite of buprenorphine Opioid Interpretation - 09/30/2020 6:20 AM CDT [facility] Comment: Test detected the presence of buprenorph ine and its metabolites (norbuprenorphine, norbupren orphine glucuronide). Suspect use of buprenorphi ne within the past three days. ADDITIONAL INFORMATIO N This test was developed and its performa nce characteristics determined by [facility] in a manner co nsistent with CLIA requirements. This test has not been madeleine ared or approved by the U.S. Food and Drug Administration. Creatinine, Urine 124.1 mg/dL 09/30/2020 6:20 [facility] AM CDT LABORATORIES Specific [place], 1.016 09/30/2020 6:20 [facility] Urine AM CDT LABORATORIES pH, Urine 6.0 09/30/2020 6:20 [facility] AM CDT LABORATORIES Oxidants Negative Cutoff: 200 09/30/2020 6:20 [facility] mg/L AM CDT LABORATORIES Comment Normal 09/30/2020 6:20 [facility] AM CDT LABORATORIES Alprazolam Not Detected Cutoff: 10 09/30/2020 6:20 [facility] ng/mL AM CDT LABORATORIES Comment: Xanax Alpha-Hydroxyalprazolam UR Not Detected Cutoff: 10 [facility] ng/mL 6:20 AM CDT LABORATORIES Comment: Metabolite of Alprazolam Alpha-Hydroxyalprazolam Not Detected Cutoff: 50 09/30/2020 [facility] Glucuronide ng/mL 6:20 AM CDT LABORATORIES Comment: Metabolite of Alprazolam Chlordiazepoxide Not Detected Cutoff: 10 09/30/2020 6:20 [facility] ng/mL AM CDT LABORATORIES Comment: Librium Clobazam Not Detected Cutoff: 10 ng/mL 09/30/2020 6:20 AM [facility] CDT LABORATORIES Comment: Frisium, Onfi N-Desmethylclobazam Not Detected Cutoff: 200 09/30/2020 6:20 [facility] ng/mL AM CDT LABORATORIES Comment: Metabolite of Clobazam Clonazepam Lvl Not Detected Cutoff: 09/30/2020 6:20 AM [facility] ng/mL [facility]T [facility] Comment: Klonopin, Rivotril 7-Aminoclonazepam Not Detected Cutoff: 10 09/30/2020 6:20 [facility] ng/mL AM CDT LAB[facility] Comment: Metabolite of Clonazepam Diazepam UR Not Detected Cutoff: 10 09/30/2020 6:20 AM [facility] Quant ng/mL CDT LABORATORIES Comment: Valium Nordiazepam Not Detected Cutoff: 10 ng/mL 09/30/2020 6:20 AM [facility] CDT LABORATORIES Comment: Metabolite of Chlordiazepoxide, Diazepam , or Prazepam. Flunitrazepam Not Detected Cutoff: 10 ng/mL 09/30/2020 6:20 AM [facility] CDT LABORATORIES Comment: Rohypnol 7-Aminoflunitrazepam Not Detected Cutoff: 10 09/30/2020 6:20 [facility] ng/mL AM CDT LAB[facility]IES Comment: Metabolite of Flunitrazepam Flurazepam Not Detected Cutoff: 10 ng/mL 09/30/2020 6:20 AM [facility] CDT LABORATORIES Comment: Dalmane 2- hydroxy ethyl Not Detected Cutoff: 10 09/30/2020 6:20 [facility] flurazepam ng/mL AM CDT LABORATORIES Comment: Metabolite of Flurazepam Lorazepam Not Detected Cutoff: 10 ng/mL 09/30/2020 6:20 AM [facility] CDT LABORATORIES Comment: Ativan Lorazepam Not Detected Cutoff: 50 09/30/2020 6:20 [facility] Glucuronide ng/mL AM CDT LABORATORIES Comment: Metabolite of Lorazepam Midazolam Not Detected Cutoff: 10 ng/mL 09/30/2020 6:20 AM [facility] CDT LABORATORIES Comment: Versed Alpha-Hydroxy Not Detected Cutoff: 10 09/30/2020 6:20 [facility] Midazolam ng/mL AM CDT LABORATORIES Comment: Metabolite of Midazolam Oxazepam Not Detected Cutoff: 10 ng/mL 09/30/2020 6:20 AM [facility] CDT LABORATORIES Comment: Serax; Also a metabolite of Chlordiazepo xide, Diazepam, or Temazepam. Oxazepam Not Detected Cutoff: 50 09/30/2020 6:20 [facility] Glucuronide ng/mL AM CDT LABORATORIES Comment: Metabolite of Oxazepam Prazepam, urine Not Detected Cutoff: 10 09/30/2020 6:20 AM [facility] ng/mL CDT LABORATORIES Comment: Centrax Temazepam Not Detected Cutoff: 10 ng/mL 09/30/2020 6:20 AM [facility] CDT LABORATORIES Comment: Restoril; Also a metabolite of Diazepam. Temazepam Not Detected Cutoff: 50 09/30/2020 6:20 [facility] Glucuronide ng/mL AM CDT LABORATORIES Comment: Metabolite of Temazepam Triazolam Not Detected Cutoff: 10 ng/mL 09/30/2020 6:20 AM [facility] CDT LABORATORIES Comment: Halcion Alpha-Hydroxy Not Detected Cutoff: 10 09/30/2020 6:20 [facility] Triazolam ng/mL AM CDT LABORATORIES Comment: Metabolite of Triazolam Zolpidem Not Detected Cutoff: 10 ng/mL 09/30/2020 6:20 AM [facility] CDT [facility] Comment: Bryanna Zolpidem Not Detected Cutoff: 10 09/30/2020 6:20 [facility] Flmtrv-5-Orllrvvdbk acid ng/mL AM CDT LABOR ATORIES Comment: Metabolite of Zolpidem Benzodiazepine, Interp - 09/30/2020 6:20 A M CDT [facility] Comment: No benzodiazepines were detected. The ab sence of expected drug(s) and/or drug metabolite(s) may in dicate non-compliance, altered pharmacokinetics , inappropriate timing of specimen collection relative t o drug administration, diluted/adulterated urin e, or limitations of testing. ADDITIONAL INFORMATIO N This test was developed and its performa nce characteristics determined by [facility] in a manner co nsistent with CLIA requirements. This test has not been madeleine ared or approved by the U.S. Food and Drug Administration. Methamphetamine Not Detected Cutoff: 100 09/30/2020 6:20 AM [facility] ng/mL CDT LABORATORIES Comment: Desoxyn Amphetamines Not Detected Cutoff: 100 09/30/2020 6:20 AM [facility] ng/mL CDT LAB[facility] Comment: Dyanavel XR, Adzenys ER, Adderall, Vyvan se; Also a metabolite of methamphetamine 3,4 Not Cutoff: 09/30/2020 [facility] Methylenedioxymethamphetamine Detected 100 ng/mL 6:20 AM CD T LABORATORIES 3,4 Not Cutoff: 09/30/2020 [facility] Yherfdrgqcysmt-E-atoaakqmwgxpdda Detected 100 ng/mL 6:20 AM CDT LABORATORIES e (MDEA) 3,4 Methylenedioxyamphetamine Not Cutoff: 09/30/2020 [facility] Detected 100 ng/mL 6:20 AM CDT LABORATORIES Comment: Also a metabolite of MDMA and/or MDEA Ephedrines Not Detected Cutoff: 100 09/30/2020 6:20 [facility] ng/mL AM CDT LAB[facility]IES Psuedoephederine Not Detected Cutoff: 100 09/30/2020 6:20 [facility] ng/mL AM CDT LABORATORIES Comment: Sudafed Phentermine Not Detected Cutoff: 100 09/30/2020 6:20 AM [facility] ng/mL CDT LAB[facility]ATORIES Comment: Adipex-P, Lomaira, Qsymia Phencyclicine (PCP) Not Detected Cutoff: 20 09/30/2020 6:20 [facility] ng/mL AM CDT LABORATORIES Methylphenidate Not Detected Cutoff: 20 09/30/2020 6:20 [facility] ng/mL AM CDT LABORATORIES Comment: Ritalin, Concerta Ritalinic Acid Not Detected Cutoff: 100 09/30/2020 6:20 AM [facility] ng/mL CDT LABORATORIES Comment: Metabolite of methylphenidate Stimulant Interpretation - 09/30/2020 6:20 AM CDT [facility] Comment: No stimulants were detected. The absence of expected drug(s) and/or drug metabolite(s) may in dicate non-compliance, altered pharmacokinetics , inappropriate timing of specimen collection relative t o drug administration, diluted/adulterated urin e, or limitations of testing. ADDITIONAL INFORMATIO N This test was developed and its performa nce characteristics determined by [facility] in a manner co nsistent with CLIA requirements. This test has not been madeleine ared or approved by the U.S. Food and Drug Administration. Test Performed by: [place] [address] Line Crew Supervisor: Benigno Selby M.D. Ph. D.; CLIA# [id number] List patient's Not provided 09/30/2020 6:20 AM CDT [facility] LABORATORIES Comment: ADDITIONAL INFORMATIO N Accuracy and completeness of declared me dications on reports solely dependent on information submitted by client. Specimen Anatomical Collection Method Collection Time Receive d Time (Source) Location / / Volume Laterality Urine 09/26/2020 12:18 09/26/2020 3:40 PM CDT PM CDT Melissa Coronado DNP, RUBBING BED OPERATOR, WASHER REPAIRMAN LAB URINE ORDERABLES Performing Organization Address City/State/ZIP Code Phon e Number [facility] see result attachment for specific address documented in this encounter Visit Diagnoses Diagnosis Opioid use disorder, moderate, in early remission, on maintenance therapy (HCC) documented in this encounter Care Teams Bench Mechanic Relationship Specialty Start Date End Date None, Pcp PCP - General Senior Patrol Agent 02/06/19 [address] [place] [address] documented as of this encounter
--- OUTSIDE RECORDS SUMMARY | 2022-01-14 01:43 | XMS_ITS | Encounter Summary ---
:1990 Author Organization [facility] Address [address] [place] [address] Care Team Providers Name Role Phone None, Pcp Primary Care Provider Unavailable Reason for Visit Reason Onset Date Comments NOB phone call 05/26/2021 Telephone Visit Encounter Details Date Type Department Care Team Description 05/26/2021 Telephone [facility] Ame Hoyt NOB ph one call [facility] BSN (Telephone Visit) Marriage Counselor [address] [address] [place], [place] [phone] [address] Social History Tobacco Use Types Packs/Day Years [...] 03/21/2020 relatives? How often do you attend hindu or congregation Not asked 03/21/2020 services? Do you belong to any clubs or organizations such as Argelia schilling 03/21/2020 hindu groups, unions, fraternal or athletic groups, or [...] place to sleep or slept in a jail (including now)? Education Answer Date Recorded What is the highest level of school you have High school gra duate 03/21/2020 completed or the highest degree you have received? Sex Assigned at Date Recorded Not on file COVID-19 Exposure Response Date Recorded In the last month, have you been in contact with No / Unsure 05/26/2021 1:11 PM CERTIFIED MAINTENANCE WELDER someone who was confirmed or suspected to have Coronavirus / COVID-19? documented as of this encounter Miscellaneous Notes Telephone Encounter - Pooja Astorga MD - 06/02/2021 4:56 PM CST Based on what I am seeing, she is on Subutex. She has not been using drugs for quite some time. As long as patient is asymptomatic from her hepatitis C, it should be reasonable at this time to wait until her 10-week visit. IFIED MAINTENANCE WELDER Telephone Encounter - JAMEE Davison - 05/26/2021 1:30 PM CST New OB Intake Phone Call [...] grandparent. History of previous (s): Yes, location: [place] History of loss - 2nd trimester or [...] [place] [employer] [place] Per 02.25.20 NOB @[facility] [place]: ??? Drug use: Yes Types: Methamphetamines, Heroin, Cocaine Comment: Last use yesterday 01/30/2020 heroin, methamphetamin (Tuesday01/29/2020) 02.25.20 RUDS - Buprenorphine, U+ only #2 Dependence Polysubstance Continuous (HCC) Thepatient is followed by her addiction physician, Dr. Anthony Rebolledo ([phone]) and has an ??? Disorder of arteries and arterioles (HCC) 02/01/2019 04.23.19 entry Patient also was admitted to [facility] with strokelike symptoms February 01 and . 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 Has been maintained on aspirin. No further symptoms. 02.01.19 [facility] [place] Result Impression 1. No acute intracranial findings. [...] 03/21/2020 Dating by 02.25.20 8+2 -> EDC 6..21 @ [facility] [place] Social History: Tobacco use: Current, vaping and [...] and Family: Not on file ??? Attends Faith Services: Not on file ??? Active Member [...] C, Anxiety, Vaping Substance Anticipates delivery at [facility]: unknown; Anjali is unsure if she will delivery at [facility] or [place]. May transfer care later for baby to have access to a NICU. Established Marriage Counselor care in the past: Yes Preferred Provider: OB Services New OB Intake completed Next scheduled appointment at [facility] TECHNICAL MGR: 06/25/2021 New OB transfer from another organization: No Has patient previously given at [facility]? No Authorizing NOB protocol provider: Dr. Gauri Bergman invitation sent: Yes * Message forwarded to OB provider on-call: Anjali scored in the high risk category on her 4 P's Questionnaire. Please advise if you would like to see her sooner than 10 weeks to discuss her current medications in . Thank you! * IFIED MAINTENANCE WELDER documented in this encounter Plan of Treatment Not on filedocumented as of this encounter Goals Goal Patient Goal Associated Recent Patient-Stated? Author Type Problems Progress secure housing General Yes Melissa Coronado, JUAN DIEGO, WAIST CUTTER, ABSTRACT SEARCHER Note: Formatting of this note might be d ifferent from the original. - has applied for several housing lists; waiting to hear back, wants to be near family Quit using tobacco (cigarettes, Tobacco Use No Melissa Coronado, JUAN DIEGO, WAIST CUTTER, smokeless, etc) ABSTRACT SEARCHER Note: Formatting of this note might be d ifferent from the original. Will use nicorette gum in case of breakt hrough craving. Will find some candy or suckers to use d uring group to occupy her hands/oral fixation documented as of this encounter Visit Diagnoses Not on filedocumented in this encounter Care Teams Us Customs And Border Officer Relationship Specialty Start Date End Date None, Pcp PCP - General Transfer Station Operator 02/06/19 [address] [place] [address] documented as of this encounter
--- OUTSIDE RECORDS SUMMARY | 2022-01-14 01:43 | XMS_ITS | Encounter Summary ---
:1990 Author Organization [facility] Address [address] [place] [address] Care Team Providers Name Role Phone None, Pcp Primary Care Provider Unavailable Encounter Details Date Type Department Care Team Description 06/11/2021 Hospital Encounter [facility] Ul[facility]ound [address] [place] [address] Social History Tobacco Use Types Packs/Day Years [...] 03/21/2020 relatives? How often do you attend religion or rastafarian Not asked 03/21/2020 services? Do you belong to any clubs or organizations such as Not chinmay schilling 03/21/2020 religion groups, unions, fraternal or athletic groups, or [...] place to sleep or slept in a residential (including now)? Education Answer Date Recorded What is the highest level of school you have High school [employer]zmoham[employer] 03/21/2020 completed or the highest degree you have received? Sex Assigned at Date Recorded Not on file COVID-19 Exposure Response Date Recorded In the last month, have you been in contact with No / Unsure 05/26/2021 1:11 PM CLEANER AND POLISHER someone who was confirmed or suspected to have Coronavirus / COVID-19? documented as of this encounter Medications at Time of Discharge Medication Sig Dispensed Refills Start Date End Date acetaminophen Take 1,000 mg by 0 (TYLENOL) 500 MG mouth every 6 (six) tablet hours if needed for mild pain albuterol HFA Inhale 2 puffs 18 g 1 05/14/2021 (Ventolin HFA) 108 every 4 (four) (90 Base) MCG/ACT hours if needed for inhalerIndications: wheezing or Cough shortness of breath aspirin EC 81 MG EC Take 81 mg by mouth 0 021 tablet daily bisacodyl (DULCOLAX) INSERT ONE 30 suppository 3 05/06/2021 10 MG SUPPOSITORY INTO suppositoryIndication THE RECTUM ONCE s: Other constipation DAILY PRN buprenorphine 16 mg 0 05/20/2021 (SUBUTEX) 8 MG DULoxetine (CYMBALTA) Take 40 mg by mouth [address] capsule 1 (one) time each day Do not crush or chew. Vit-Fe Take by mouth 0 Fumarate-FA ( MULTIVITAMINS PO) Vyvanse 30 MG capsule Take by mouth 1 0 2 (one) time each day ibuprofen (ADVIL) 200 Take 600 mg by 0 10/06/2020 06/25/2021 MG tablet mouth every 6 hours mirtazapine (REMERON) Take 7.5 mg by 0 05/20/2021 06/25/2021 7.5 MG tablet mouth at night if needed for sleep modafinil (PROVIGIL) Take 50 mg by mouth 0 202006/25/2021 100 MG tablet 1 (one) time each day norethindrone-ethinyl Take 1 tablet by 21 tablet 12 05/06/19 22 06/25/2021 estradiol (Loestrin mouth 1 (one) time 04/30, ,) 1-20 each day MG-MCG per tabletIndications: Unwanted fertility Suboxone 8-2 MG per DISSOLVE 1 FILM 0 03/31/2021 06/25/2021 SL film UNDER THE TONGUE TWICE DAILY documented as of this encounter Plan of Treatment Not on filedocumented as of this encounter Goals Goal Patient Goal Associated Recent Patient-Stated? Author Type Problems Progress secure housing General Yes Melissa Coronado, DNP, DUPLICATING MACHINE OPERATOR, MECHANICAL ESTIMATOR Note: Formatting of this note might be d ifferent from the original. - has applied for several housing lists; waiting to hear back, wants to be near family Quit using tobacco (cigarettes, Tobacco Use No Melissa Coronado, DNP, DUPLICATING MACHINE OPERATOR, smokeless, etc) MECHANICAL ESTIMATOR Note: Formatting of this note might be [...] cesarea n Results for this WEEKS INCLUDING CLEANER AND POLISHER section procedure ar e in TRANSVAGINAL the results section. documented in this encounter Results Ultrasound OB less than 14 weeks including transvaginal (06/11/2021 3:16 PM CLEANER AND POLISHER) Anatomical Region Laterality Modality Body Ultrasound Specimen (Source) Anatomical Collection Method Collection Time Re ceived Time Location / / Volume Laterality 06/11/2021 3:16 PM CLE[employer]ER AND POLISHER Impressions 06/11/2021 3:26 PM CLEANER AND POLISHER IMPRESSION: There is a single live ??7w6d intrauteri ne gestation as described above. Narrative 06/11/2021 3:26 PM CLEANER AND POLISHER INDICATION: History of COMPARISON: None available. FINDINGS: [...] filedocumented in this encounter Care Teams Foreign Car Mechanic Relationship Specialty Start Date End Date None, Pcp PCP - General Shellfish Checker 02/06/[address] [place] [phone] documented as of this encounter
--- OUTSIDE RECORDS SUMMARY | 2022-01-14 01:43 | XMS_ITS | Encounter Summary ---
:1990 Author Organization [facility] Address [address] [place] [address] Care Team Providers Name Role Phone None, Pcp Primary Care Provider Unavailable Reason for Referral Consultation (Routine) - Authorized Specialty Diagnoses / Procedures Referred By Contact Refer red To Contact Diagnoses Constipation, unspecified constipation type Boby Byrne MD [place] - Referrals [address] [facility] [address] [place] [address] [place] [address] Fax: Referral ID Status Reason Start Date Expiration Date Visits V isits Requested Authorized [id number] Authorized 05/06/2021 05/06/2022 1 1 EXTRACTOR Reason for Visit Reason Comments Med Management Encounter Details Date Type Department Care Team Description 05/06/2021 Office Visit [facility] Boby Byrne MD Constipation, unspecified constipation t ype (Primary Dx); [address] [facility] Other constipation; [place] [address] SE Unwanted fertility [phone] [place] [address] Social History Tobacco Use Types [...] 03/21/2020 relatives? How often do you attend lutheran or quaker Not asked 03/21/2020 services? Do you belong to any clubs or organizations such as Argelia schilling 03/21/2020 lutheran groups, unions, fraternal or athletic groups, or [...] pay for the very basics like Not quirino pinedo hard 05/26/2021 food, housing, medical care, and [...] Sign Reading Time Taken Comments Blood Pressure 127/85 05/06/2021 4:34 PM WORT EXTRACTOR Pulse 102 05/06/2021 4:33 PM WORT EXTRACTOR Temperature 37.3 ??C (99.2 ??F) 05/06/2021 4:33 PM WORT EXTRACTOR Respiratory Rate 16 05/06/2021 4:33 PM WORT EXTRACTOR Oxygen Saturation - - Inhaled Oxygen Concentration - - Weight 90.6 kg (199 lb 11.8 oz) 05/06/2021 4:33 PM WORT EXTRACTOR Height 165 cm (5' 4.96) 05/06/2021 4:33 PM WORT EXTRACTOR Body Mass Index 33.28 05/06/2021 4:33 PM WORT EXTRACTOR documented in this encounter Progress Notes Boby Byrne MD - 05/06/2021 4:20 PM CST Estab Patient Visit Subjective Patient ID: Anjali Hoang is a 31 y.o. female. Chief Complaint Patient presents with ??? Med Management History of Present Illness HPI History chronic constipation. Requesting gastroenterology referral. States had referral and couple of years ago just prior to the pandemic. Appointment canceled. Patient also requesting refill of Dulcolax suppositories. In addition patient requesting prescription for control. Requesting low estrogen. Review of Systems Review of Systems Per the history of present illness. The patient denied any other active medical problems or concerns. Allergies Dog epithelium allergy skin test, Dust mite extract, Ragweed, and Sulfa antibiotics Medications Current Outpatient Medications: ??? acetaminophen (TYLENOL) 500 MG tablet, Take 1,000 mg by mouth every 6 (six) hours if needed for mild pain, Disp: , Rfl: ??? aspirin EC 81 MG EC tablet, Take 81 mg by mouth daily, Disp: , Rfl: ??? bisacodyl (DULCOLAX) 10 MG suppository, INSERT ONE SUPPOSITORY INTO THE RECTUM ONCE DAILY PRN, Disp: 30 suppository, Rfl: 3 ??? ibuprofen (ADVIL) 200 MG tablet, Take 600 mg by mouth every 6 hours, Disp: , Rfl: ??? norethindrone-ethinyl estradiol (Loestrin 04/30, 21,) 1-20 MG-MCG per tablet, Take 1 tablet by mouth 1 (one) time each day, Disp: 21 tablet, Rfl: 12 The following portions of the patient's chart were reviewed in this encounter and updated as appropriate: Tobacco Allergies Meds Problems Med Hx Surg Hx Fam Hx Objective Physical Exam Vital signs are as per the chart Physical examination in general patient pleasant no apparent distress Assessment/Plan Diagnoses and all orders for this visit: Constipation, unspecified constipation type - Ambulatory External Referral Other constipation - bisacodyl (DULCOLAX) 10 MG suppository; INSERT ONE SUPPOSITORY INTO THE RECTUM ONCE DAILY PRN Unwanted fertility - norethindrone-ethinyl estradiol (Loestrin 04/30, 21,) 1-20 MG-MCG per tablet; Take 1 tablet by mouth 1 (one) time each day Plans as above. EXTRACTOR documented in this encounter Plan of Treatment Scheduled Referrals Name Type Priority Associated Diagnoses Order S chedule Ambulatory External Outpatient Referral Routine Constipation, Ordered: Referral unspecified 05/06/2021 constipation type documented as of this encounter Goals Goal Patient Goal Associated Recent Patient-Stated? Author Type Problems Progress secure housing General Yes Melissa Coronado, JUAN [place]IEGO, WORKERS' COMPENSATION MEDIATOR, COMMISSARY CLERK Note: Formatting of this note might be d ifferent from the original. - has applied for several housing lists; waiting to hear back, wants to be near family Quit using tobacco (cigarettes, Tobacco Use No Melissa Coronado, JUAN [place]IEGO, WORKERS' COMPENSATION MEDIATOR, smokeless, etc) COMMISSARY CLERK Note: Formatting of this note might be d ifferent from the original. Will use nicorette gum in case of breakt hrough craving. Will find some candy or suckers to use d uring group to occupy her hands/oral fixation documented as of this encounter Visit Diagnoses Diagnosis Constipation, unspecified constipation t ype - Primary Unwanted fertility documented in this encounter Care Teams Rocket Test Fire Worker Relationship Specialty Start Date End Date None, Pcp PCP - General Military Analyst 02/06/[address] [place] [phone] documented as of this encounter
--- OUTSIDE RECORDS SUMMARY | 2022-01-14 01:43 | XMS_ITS | Encounter Summary ---
:1990 Author Organization [facility] Address [address] [place] [address] Care Team Providers Name Role Phone None, Pcp Primary Care Provider Unavailable Reason for Referral Consultation (Routine) - Authorized Specialty Diagnoses / Procedures Referred By Contact Refer red To Contact Perinatology Diagnoses Supervision of high risk , antepartum Opioid use disorder, moderate, in early remission, on maintenance therapy (HCC) Family history of congenital anomaly of cardiovascular system Emmanuel Damon MD [facility] Perinatology [address] [place] [address] [place] [address] Referral ID Status Reason Start Expiration Visits Visits Date Date Requested Authorized [id number] Authorized Specialty 06/25/2021 06/25/2022 1 1 Services Required Scheduling Instructions Please call the Perinatology Department at [phone] to obtain an appointment. Reason for Visit Reason Comments Initial Visit Encounter Details Date Type Department Care Team Description 06/25/2021 Initial [facility]'s [facility] Corry Damon ea, MD [place]: 10w0d [facility] Ob /Clinical Manager [address] [place] [address] [place] [address] (Wo rk) Social History Tobacco Use Types [...] 03/21/2020 relatives? How often do you attend worship or mandaen Not asked 03/21/2020 services? 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 We will let you know if any of the results are abnormal, or more testing is needed. Who to Call Please call the OBGYN department at [phone] if you have vaginal bleeding, vaginal spotting, abnormal vaginal discharge, or have any questions/concerns. OB Concerns [facility] Center: [phone]. Because of COVID19, you MUST call before [...] hour, please contact the OBGYN clinic at [phone] during business hours (Tuesday-Tuesday, 8-5pm) or the Center at [phone] after business hours. Classes and Preparation -- Classes fill up fast! We suggest that you register around 24 weeks of . Bigler online for in-person group classes: https://www.Azure Power/classes-events/search-results/?[email or web address] --One-to-one classes, instruction with only you, your partner or family member or members, and the educator, are available. If you are interested, please ask your provider about ordering this for you. -- [employer] offers anytime, anywhere, parent education designed to give you convenient access to valuable, research-based information on care, labor and , care, , and care, including lots of videos! [employer] can also provide you with unique tools like a kick counter, contraction timer, personal journal, and more. How to get access to [employer]: Bigler for the program by going to: [email or web address]/[email or web address] health atrium medical [email or web address] You will then receive an email from [email or web address] providing you with your login and password information. Please note: The email will come from [employer] and not [facility]. If you do not receive a confirmation, be sure to check your email's Zenverge folder. After you have created your account, you can access [employer] in 2 ways: Download the free mobile talia from your talia store. Search ???[employer].?? or Login on the [employer] website: [email or web address]. --In-person Center tours are on hold due to the pandemic. Here is a link to a short YouTube video tour of our beautiful Center: [email or web address]://www.youtube.com/watch?v=[email or web address] ??? Get the COVID-19 vaccine! - COVID [...] as well. - In October 2020, The [place] College of Obstetricians and Gynecologists (ACOG) released recommendations that ALL eligible persons, including people and people who are breast feeding, receive aCOVID-19 vaccine or vaccine series: - https://www.acog.org/womens-health/faqs/tcoiwhfvsmx-irjjt-05-izuiyikzc-tfh-bthcb tfeeding?utm_source=redirect&utm_medium=web&utm_campaign=int - For more technical information on that recommendation: - https://www.acog.org/clinical/clinical-guidance/practice-advisory/articles//mrcwc-63-bechbwftfel-zyjtpvgpvxlmvd-gfm-gplumvghi-gynecologic-care - Looking for even more information on the COVID vaccine in ?: - [employer] ? ? https://www.Droplet Technology/?mc_cid=097855uo10&mc_eid=673u7w9937 - [facility] Agentrunube Channel ??? https://U-Play Studios.AdTotum/XC-bxarLQek - The [facility] ??? https://www.cdc.gov/coronavirus/2019-ncov/vaccines/recommendations/.htm l - The Society for Maternal Medicine ??? https://www.highriskpregnancyinfo.org/covid-19 - [facility] COVID-19 Vaccine Information ??? https://www.olmmed.org/aixxu-15-yjwrnpypbza/xsqqd-28-hpsrwob-information - For information on other COVID vaccination options in [facility]: ??? Https://www.[facility]/covid/vaccine ??? GENERAL COVID-19 RECOMMENDATIONS - Wear a surgical mask. Masks should be worn inside in public places. - Wash your hands often with soap and water for at least 20 seconds. If you can't use soap and water, please use alcohol-based hand design intern, like Purell. - Cough into your elbow, NOT your hands. - Avoid touching your eyes, nose, and mouth. - Avoid being around people who are sick. - If you are sick, please stay home from school, work, and other activities. - If you are sick or have had contact with a person who has COVID-19: - Call the [employer] Nurse Triage line at [phone] during normal clinic hours. - If need immediate emergency care (for example: shortness of breath) after clinic hours: - Use the [facility] Emergency Room. ??? COVID Testing - Starting [...] days before delivery. ??? 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 - A Certified [employer] may also be with you during your [...] before you come to the clinic at [phone]. - DO NOT COME to the clinic until you call, even if you have an appointment. - Surgical masks must be worn while inside the [facility]. If you don't have one, don'tworry! We'll give you one at the door. - If you have tested positive for COVID: - Call us before you come to the clinic at [phone]. - Please understand that we may reschedule your clinic visit to another time. ??? Instructions for your BirthCenter (Labor and Delivery) Care: - Call us first before coming to the hospital - [phone]. - DO NOT come to the BirthCenter without calling. - IF you have COVID and need to come to the Center: - Remind staff of your positive COVID-19 test when you call before you come. - Come in the [facility] doors, like you do for appointments. - [...] when you come in, including: - Your car seat. - Larson for meals for the people who come with you, and for other needs. - Personal items. - Your inhaler, like Albuterol/Ventolin/Proventil, if you use one for asthma or allergies. documented in this encounter Progress Notes Emmanuel Damon MD - 06/25/2021 2:30 PM CDT Initial visit Anjali Hoang is a 31 y.o. at 10w0d by LMP, consistent with 7-week ultrasound, who presents for an initial visit. - Current symptoms: Exhausted, nausea. No h/o rx for nausea. - obstetric history reviewed: OB History Para Term AB Living 4 2 2 0 1 2 SAB IAB Ectopic Multiple Live Births 1 0 0 0 2 # Outcome Date GA Lbr Tavon/2nd Weight Sex Delivery Anes PTL Lv 4 Current 3 Term 10/03/20 39w6d 2780 g (98.1 oz) M CS-LTranv EPI GAY Complications: Intolerance Name: MOISE MITCHELL Apgar1: 9 Apgar5: 9 2 SAB 11/2018 1 Term 09/04/13 39w4d 3118 g (110 oz) M Vag-Spont N GAY Comments: NOT parenting. With her grandparent. - medical history reviewed: notable for ADHD, hepatitis C, depression, opiate use disorder - genetic history reviewed: notable for other child with congenital heart disease - social history reviewed: - tobacco use: no - alcohol use: no, sober from alcohol since 2014 - illicit/recreational drug use? yes, early remission, last use 01/29/2021, herion is drug of choice, polysubstance use with amphatamines cocaine mdma cannabis heroin - medications reviewed: - taking pnv? yes - other meds? yes Current Outpatient Medications: ??? acetaminophen (TYLENOL) 500 MG tablet, Take 1,000 mg by mouth every 6 (six) hours if needed for mild pain, Disp: , Rfl: ??? bisacodyl (DULCOLAX) 10 MG suppository, INSERT ONE SUPPOSITORY INTO THE RECTUM ONCE DAILY PRN, Disp: 30 suppository, Rfl: 3 ??? buprenorphine (SUBUTEX) 8 MG, 16 mg , Disp: , Rfl: ??? Vit-Fe Fumarate-FA ( MULTIVITAMINS PO), Take by mouth, Disp: , Rfl: ??? Vyvanse 30 MG capsule, Take by mouth 1 (one) time each day, Disp: , Rfl: ??? albuterol HFA (Ventolin HFA) 108 (90 Base) MCG/ACT inhaler, Inhale 2 puffs every 4 (four) hours if needed for wheezing or shortness of breath (Patient not taking: Reported on 05/26/2021), Disp: 18 g, Rfl: 1 ??? aspirin EC 81 MG EC tablet, Take 81 mg by mouth daily (Patient not taking: Reported on 05/26/2021), Disp: , Rfl: ??? DULoxetine (CYMBALTA) [address] capsule, Take 40 mg by mouth 1 (one) time each day Do not crush or chew. (Patient not taking: Reported on 06/25/2021), Disp: , Rfl: - physical exam performed, see physical tab - Unable to auscultate FHR with doppler. Difficulty visualizing with bedside transabdominal ultrasound. Dr. Cabrera assisted with bedside transvaginal ultrasound noting reynolds IUP, FHR estimated 168, limb movement noted. - Discussed: - Schedule of visits discussed - NOB teaching packet given - Recommended perinatology consultation for history of child with congenital heart disease, anticipate referral for echo. Pt also with opiate use disorder, in remission on Subutex. History of ADHD, current therapy with Vyvanse. History of Hep C infection, last HCV RNA quant negative, no historyof treatment- prior infection cleared without evidence subsequently of chronic infection. Updated HCV RNA quant ordered today. History of depression treated with duloxetine, NOT currently on any antidepressant therapy. - Genetic screening: discussed and [id number] collected - NOB labs: ordered - HAZEL estimate: ultrasound done previously - Pap: last done 02/2020, up to date RTC 4 weeks. documented in this encounter Plan of Treatment Scheduled Referrals Name Type Priority Associated Diagnoses [facility] Outpatient Routine Supervision of high O rdered: to Perinatology Referral risk , 2 antepartum Opioid use disorder, moderate, in early remission, on maintenance therapy (HCC) Family history of congenital anomaly of cardiovascular system documented as of this encounter Goals Goal Patient Goal Associated Recent Patient-Stated? Author Type Problems Progress secure housing General Yes Melissa Coronado, DNP, FORMING ACID DUMPER, BANQUET DIRECTOR Note: Formatting of this note might be d ifferent from the original. - has applied for several housing lists; waiting to hear back, wants to be near family Quit using tobacco (cigarettes, Tobacco Use No Melissa Coronado, JUAN DIEGO, FORMING ACID DUMPER, smokeless, etc) BANQUET DIRECTOR Note: Formatting of this note might be d ifferent from the original. Will use nicorette gum in case of breakt hrough craving. Will find some candy or suckers to use d uring group to occupy her hands/oral fixation documented as of this encounter Results (ABNORMAL) Rapid drug screen, urine (lab staff release/collect) (06/25/2021 4:05 PM CDT) athologist Signature Rapid Urine ----- 06/25/2021 [facility] Drug Screen 4:08 PM [facility] Comment: This is a screening test. ??Positive res ults should be considered presumptive and are [facility] for confirmation. This test is not for legal purposes - on [employer]. Tetrahydrocannabinol NOT DETECTED Not Detected 06/25/2021 7: 10 [facility] Phencyclidine, Mec NOT DETECTED Not Detected 06/25/2021 7:10 [facility] Cocaine NOT DETECTED Not Detected 06/25/2021 7:10 [facility] Methamphetamine NOT DETECTED Not Detected 06/25/2021 7[facility] Opiates NOT DETECTED Not Detected 06/25/2021 7:10 [facility] Amphetamines DETECTED (A) Not Detected 06/25/2021 7:10 [facility] Comment: Sent to [employer] for GC/MS confirmation. Benzodiazepines NOT DETECTED Not Detected 06/25/2021 7:10 PM [facility] TCA, Urine NOT DETECTED Not Detected 06/25/2021 7:10 PM [facility] Methadone NOT DETECTED Not Detected 06/25/2021 7:10 PM [facility] Barbiturates NOT DETECTED Not Detected 06/25/2021 7:10 PM [facility] Oxycodone NOT DETECTED Not Detected 06/25/2021 7:10 PM [facility] Propoxyphene NOT DETECTED Not Detected 06/25/2021 7:10 PM [facility] Buprenorphine DETECTED (A) Not Detected 06/25/2021 7:10 PM O [facility] Comment: Sent to [employer] for GC/MS confirmation. Detectable Levels ----- 06/25/2021 4:08 PM CDT [facility] Comment: Amphetamines ?500 ng/ mL Barbiturates [...] Laterality Urine (Urine, 06/25/2021 4:05 PM 06/26/19 5:05 Clean Catch) CDT PM CDT Emmanuel Damon MD LAB URINE ORDERABLES Performing Organization Address City/State/ZIP Code Phon e Number [facility] [address] [place] [address] Urine Screen (06/25/2021 4:05 PM CDT) Analysis Performed At [facility] logist Time Signature Urine Screen No Growth 06/27/2021 [place] 6:23 AM [facility] Specimen Anatomical Collection Method Collection Time Receive d Time (Source) Location / / Volume Laterality Urine (Urine, 06/25/2021 4:05 PM 06/26/19 22 5:05 Clean Catch) CDT PM CDT Comment: Urine Screen Narrative [facility] - 06/09 6:23 AM CDT Patient does not have an Amoxicillin or PCN allergy Emmanuel Damon MD LAB MICROBIOLOGY - GENERAL O RDERABLES Performing Organization Address City/[facility]/ZIP Code Phon e Number [facility] [address] [place] [address] [id number] (06/25/2021 3:54 PM CDT) athologist [facility] [id number] see below 06/30/2021 [facility] 12:26 AM [facility] Comment: ? See scanned report Specimen Anatomical Collection Method Collection Time Receive d Time (Source) Location / / Volume Laterality Blood (Blood, 06/25/2021 3:54 PM 06/26/19 5:05 Venous) CDT PM CDT Emmanuel Damon MD LAB BLOOD ORDERABLES Performing Organization Address City/[facility]/ZIP Code Phon e Number [facility] [address] [place] [address] HCV RNA detect/quant, serum (06/25/2021 3:54 PM CDT) [facility] gist Method Time Signature HCV RNA Undetected Undetected 06/26/2021 [facility] Detect/Quant IU/mL 7:51 PM CDT LABORATORIES , S Comment: Result in log IU/mL is Undetected. ADDITIONAL INFORMATIO N The quantification range of this assay i s 15 to 100,000,000 IU/mL (1.18 log to 8.00 log IU/mL). Test ing was performed using the seth HCV test ([employer] with the seth 6800 System. Test Performed by: [facility] [address] [place], [place] [address] Sample Preparation Supervisor: Benigno Selby M.D. Ph. D.; IA# [id number] Specimen Anatomical Collection Method Collection Time Receive d Time (Source) Location / / Volume Laterality Blood (Blood, 06/25/2021 3:54 PM 06/26/19 22 8:37 Venous) CDT PM CDT Emmanuel Damon MD LAB BLOOD ORDERABLES Performing Organization Address City/State/ZIP Code Phon e Number [facility] see result attachment for specific address Hemoglobin A1c (06/25/2021 3:54 PM CDT) P athologist Signature Hemoglobin A1C 5.3 4.0 - 5.6 06/25/2021 [facility] L % A1C 6:27 PM CDT CENTER [...] Organization Address City/State/ZIP Code Phon e Number [facility] [address] [place] [address] Hepatitis B surface antigen (06/25/2021 3:54 PM CDT) Patholo gist Method Time Signature Hep. Bs NON-REACTI Non-Reacti 06/25/2021 MICHAEL Antigen VE ve 7:24 PM CDT [facility] (HBsAg[facility] Comment: The results from this [...] MD LAB BLOOD ORDERABLES Performing Organization Address [facility] Phon e Number [facility] [address] [place] [address] HIV-1 and HIV-2 antibodies (06/25/2021 3:54 PM CDT) athologist Signature HIV-1/HIV-2 NON-REACTI Non-Reacti 06/25/2021 [place] VE ve 7:24 PM CDT [facility] Comment: The results from this or [...] MD LAB BLOOD ORDERABLES Performing Organization Address City/[facility] Phon e Number [facility] [address] [place] [address] RPR (06/25/2021 3:54 PM CDT) athologist Signature RPR NON-REACTI Non-reacti 06/25/2021 [facility] VE ve 6:36 PM CDT [facility]ENTER [facility] Specimen Anatomical Collection Method Collection Time Receive d Time (Source) Location / / Volume Laterality Blood (Blood, 06/25/2021 3:54 PM 06/26/19 22 5:05 Venous) CDT PM CDT Emmanuel Damon MD LAB BLOOD ORDERABLES Performing Organization Address [facility] Phon e Number [facility] [address] [place] [phone] Rubella antibody, IgG (06/25/2021 3:54 PM CDT) athologist Signature Rubella IgG REACTIVE SEE BELOW 06/25/2021 [facility] 7:24 PM CDT [facility] Comment: A [...] MD LAB BLOOD ORDERABLES Performing Organization Address City/[facility] Code Phon e Number [facility] [address] [place] [address] CBC ([employer]) (06/25/2021 3:54 PM CDT) athologist Signature WBC 5.6 3.5 - 10.5 06/25/2021 [facility] K/uL 5:57 PM CDT [facility] RBC 4.37 3.90 - 06/25/2021 [facility] 5.00 M/uL 5:57 PM CDT [facility] Hemoglobin 12.6 12.0 - 06/25/2021 [facility] 15.5 g/dL 5:57 PM CDT [facility] Hematocrit 38.0 35.0 - 06/25/2021 [facility] 44.0 % 5:57 PM CDT [facility] Platelets 242 150 - 450 06/25/2021 [facility] K/uL 5:57 PM CDT [facility] MCV 87.0 81.6 - 06/25/2021 [facility] 98.3 fL 5:57 PM CDT [facility] MCH 28.8 26.0 - 06/25/2021 [facility] 32.0 pg 5:57 PM CDT [facility] MCHC 33.2 32.0 - 06/25/2021 [facility] 36.0 g/dL 5:57 PM CDT [facility] RDW 13.2 11.9 - 06/25/2021 [facility] 15.5 % 5:57 PM CDT [facility] NRBC %, 0 % 06/25/2021 [facility] Automated 5:57 PM CDT [facility] Comment: . NRBC Absolute, Autmated 0.00 06/25/2021 5:57 PM CDT [facility] Comment: 0-4 Days Ref Range ?? 0.01 -0.02 K/uL >=5 Days Ref Range ?? 0.00 K/uL Specimen Anatomical Collection Method Collection Time Receive d Time (Source) Location / / Volume Laterality Blood (Blood, 06/25/2021 3:54 PM 06/26/19 5:05 Venous) CDT PM CDT Emmanuel Damon MD LAB BLOOD ORDERABLES Performing Organization Address City/[facility]/ZIP Code Phon e Number [facility] [address] [place] [address] Antibody Screen (Gel) (06/25/2021 3:54 PM CDT) P athologist Signature Antibody NEG 06/25/2021 [facility] Screen 6:23 PM CDT [facility] Specimen Anatomical Collection Method Collection Time Receive d Time (Source) Location / / Volume Laterality Blood (Blood, 06/25/2021 3:54 PM 06/26/19 22 5:05 Venous) CDT PM CDT Emmanuel Damon MD LAB BLOOD BANK TEST ORDERABL ES Performing Organization Address City/[facility]/ZIP Code Phon e Number [facility] [address] [place] [address] documented in this encounter Visit Diagnoses Diagnosis 10 weeks gestation of - Primar y Supervision of high risk , ante Opioid use disorder, moderate, in early remission, on maintenance therapy (HCC) History of hepatitis C Personal history of other infectious and parasitic disease Family history of congenital anomaly of cardiovascular system 10 weeks gestation of Supervision of high risk , ante History of hepatitis C Personal history of other infectious and parasitic disease Opioid use disorder, moderate, in early remission, on maintenance therapy (HCC) documented in this encounter Care Teams Manager Intelligence Relationship Specialty Start Date End Date None, Pcp PCP - General Vegetable Vendor 02/06/19 [address] [place] [address] documented as of this encounter
--- OUTSIDE RECORDS SUMMARY | 2022-01-14 01:43 | XMS_ITS | Encounter Summary ---
:1990 Author Organization [facility] Address [address] [place] [address] Care Team Providers Name Role Phone None, Pcp Primary Care Provider Unavailable Encounter Details Date Type Department Care Team Description 11/26/2020 Telemedicine SE MEDICATION ASSISTED Omid Morales, Opi oid use disorder, TREATMENT PA-C moderate, in early [address] remission, [place] [address] [place], [place] maintenance therapy [phone] (HCC) (Primary Dx) Social History Tobacco Use Types Packs/Day Years [...] 03/21/2020 relatives? How often do you attend episcopalian or shinto Not asked 03/21/2020 services? Do you belong to any clubs or organizations such as Argelia schilling 03/21/2020 episcopalian groups, unions, fraternal or athletic groups, or [...] as of this encounter Patient Instructions Patient InstructionsOmid Morales PA-C - 11/26/2020 8:30 AM CDT Continue Subutex 8 mg and 2 mg twice daily. Submit urine drug screen. Follow up on 12/24/2020 or beforewith lab prior. Call MAT clinic at [phone] with any questions or concerns. documented in this encounter Progress Notes Omid Morales PA-C - 11/26/2020 8:30 AM CDT MAT Clinic Follow Up Note This visit was conducted with the use of interactive audio and video telecommunications via [employer] that permits real time communication between the patient and the clinician. Patient consented for virtual visit. Discussion Date: 11/26/2020 9:07 AM CHIEF COMPLAINT: Anjali presents for MAT Clinic follow up visit for management of opioid use disorder. Last visit: 10/27/2020 She has been taking Suboxone as prescribed: Yes Current total daily dose is 20 mg Suboxone film/tab count is within range: N/A Stores Suboxone securely: Yes Used any mood altering drugs since last visit: No Cravings for narcotics: No Suboxone side effects: No Urine Toxicology: Expected results lab pending. Pt is a 30 yo female who presents for buprenorphine follow-up. Stable with 10 mg twice daily Subutex. No cravings, no use. She tested positive for COVID-19 on 11/02/2020. She is recovered form infectionand has had return of her taste and smell. She is coping with the stress of a and reports her child was sick as well but has recovered. She did stop vaping nicotine during COVID infection but did resume after. [employer] Mood: good, excited Sleep: good last evening but poor most nights due to Appetite: normal, no concerns Employment status changes: not discussed Housing: new apartment Current life stressors: not discussed Libido: not discussed Daily Functioning/ADLs: no concerns or changes Social Support: not discussed Recovery Activities: none at this time [employer] Her leisure activities include... Too busy with the right now Her current coping skills/methods... Staying busy, supporting others Meaningful spiritual practices or beliefs... Worship, finds hope and strength in her casper Tobacco Allergies Meds Problems Med Hx Surg Hx Fam Hx were reviewed ASSESSMENT: Problem List Items Addressed This Visit Other Opioid use disorder, moderate, in early remission, on maintenance therapy (HCC) - Primary Overview 04/23/20 RUDS at each visit, negative 04/23/2020.-MSR Last UDS negative 05/22/2020 Transfer of care to the MAT clinic for ongoing buprenorphine therapy 04/17/2020 Currently on 20 mg Subutex daily Relevant Medications buprenorphine (SUBUTEX) 2 MG buprenorphine (SUBUTEX) 8 MG Other Relevant Orders Controlled Substance Monitoring Panel, Urine PLAN: Continue with MAT Clinic Treatment Program and plan of care. Patient will follow up in 4 week(s) There are no Patient Instructions on file for this visit. Omid Morales PA-C documented in this encounter Plan of Treatment Not on filedocumented as of this encounter Goals Goal Patient Goal Associated Recent Patient-Stated? Author Type Problems Progress secure housing General Yes Melissa Coronado, JUAN DIEGO, JAIL OFFICER, SUPERVISOR TANK HOUSE Note: Formatting of this note might be d ifferent from the original. - has applied for several housing lists; waiting to hear back, wants to be near family Quit using tobacco (cigarettes, Tobacco Use No Melissa Coronado, JUAN DIEGO, JAIL OFFICER, smokeless, etc) SUPERVISOR TANK HOUSE Note: Formatting of this note might be d ifferent from the original. Will use nicorette gum in case of breakt hrough craving. Will find some candy or suckers to use d uring group to occupy her hands/oral fixation documented as of this encounter Visit Diagnoses Diagnosis Opioid use disorder, moderate, in early remission, on maintenance therapy (HCC) - Primary documented in this encounter Care Teams Supervisor Jewelry Department Relationship Specialty Start Date End Date None, Pcp PCP - General Production Or Plant Engineer 02/06/19 [address] [place] [address] documented as of this encounter
--- OUTSIDE RECORDS SUMMARY | 2022-01-14 01:43 | XMS_ITS | Encounter Summary ---
:1990 Author Organization [facility] Address [address] [place] [address] Care Team Providers Name Role Phone None, Pcp Primary Care Provider Unavailable Reason for Visit Reason Onset Date Comments medicaiton prior auth 09/29/2020 Buprenorphine HCl 2MG sublingual tablets Encounter Details Date Type Department Care Team Description 09/29/2020 Telephone SE MEDICATION ASSISTED Omid Morales, med icaiton prior auth TREATMENT PA-C (Buprenorphine HCl 2MG [address] sublingual tablets) [place] [address] [place], [place] [phone] Social History Tobacco Use Types Packs/Day Years [...] 03/21/2020 relatives? How often do you attend faith or voodoo Not asked 03/21/2020 services? Do you belong to any clubs or organizations such as Argelia schilling 03/21/2020 faith groups, unions, fraternal or athletic groups, or [...] place to sleep or slept in a alf (including now)? Education Answer Date Recorded What is the highest level of school you have High school gra duate 03/21/2020 completed or the highest degree you have received? Sex Assigned at Date Recorded Not on file documented as of this encounter Miscellaneous Notes Telephone Encounter - Sandy Leonardo MA - 09/29/2020 8:53 AM CDT PA is approved from 09/20/2020 - 03/31/2021. NISHA# [id number] Pharmacy was notified. Telephone Encounter - Sandy Leonardo MA - 09/29/2020 7:39 AM CDT Buprenorphine HCl 2MG sublingual tablets BIN: [id number] PC[id number] GROUP: [id number] PL[place] Medicaid PHONE: [phone] ID: [id number] PA has been completed via CMM sent to plan. Neely: [id number] documented in this encounter Plan of Treatment Not on filedocumented as of this encounter Goals Goal Patient Goal Associated Recent Patient-Stated? Author Type Problems Progress secure housing General Yes Melissa Coronado DNP, PROOF TECHNICIAN HELPER, SCIENTIST/ENGINEER Note: Formatting of this note might be d ifferent from the original. - has applied for several housing lists; waiting to hear back, wants to be near family Quit using tobacco (cigarettes, Tobacco Use No Melissa Coronado, JUAN DIEGO, PROOF TECHNICIAN HELPER, smokeless, etc) SCIENTIST/ENGINEER Note: Formatting of this note might be d ifferent from the original. Will use nicorette gum in case of breakt hrough craving. Will find some candy or suckers to use d uring group to occupy her hands/oral fixation documented as of this encounter Visit Diagnoses Not on filedocumented in this encounter Care Teams Bottom Wheeler Relationship Specialty Start Date End Date None, Pcp PCP - General Automotive Professional 02/06/19 [address] [place] [address] documented as of this encounter
--- OUTSIDE RECORDS SUMMARY | 2022-01-14 01:43 | XMS_ITS | Encounter Summary ---
:1990 Author Organization [facility] Address [address] [place] [address] Care Team Providers Name Role Phone None, Pcp Primary Care Provider Unavailable Encounter Details Date Type Department Care Team Description 10/27/2020 Lab SE Lab Opioid use disorder, moderat e, [address] in early remission, [place] [address] maintenance therapy ([facility]) [phone] Social History Tobacco Use Types Packs/Day Years [...] 03/21/2020 relatives? How often do you attend roman catholic or moravian Not asked 03/21/2020 services? Do you belong to any clubs or organizations such as Not askbreanne schilling 03/21/2020 roman catholic groups, unions, fraternal or athletic groups, or [...] secure housing General Yes Melissa Coronado, DNP, DATA CAPTURE SPECIALIST, STRUCTURAL WELDER Note: Formatting of this note might be d ifferent from the original. - has applied for several housing lists; waiting to hear back, wants to be near family Quit using tobacco (cigarettes, Tobacco Use No Melissa Coronado, DNP, DATA CAPTURE SPECIALIST, smokeless, etc) STRUCTURAL WELDER Note: Formatting of this note might be d ifferent from the original. Will use nicorette gum in case of breakt hrough craving. Will find some candy or suckers to use d uring group to occupy her hands/oral fixation documented as of this encounter Procedures Procedure Name Priority Date/Time Associated Diagnosis Comme [facility] CONTROLLED Routine 10/27/2020 3:26 PM Opioid use disorder, R esults for this SUBSTANCES CDT moderate, in early procedure are in MONITORING PANEL, remission, on the resul URINE maintenance therapy section. (HCC) documented in this encounter Results (ABNORMAL) Controlled Substance Monitoring Panel, Urine (10/27/2020 3:26 PM CDT) Component Value Ref Test Analysis Performed At [facility] Range Method Time Signature Barbiturates Negative Cutoff: 10/30/2020 [facility] 200 1:34 PM CDT LABORATORIES ng/mL Cocaine Negative Cutoff: 10/30/2020 [facility] 150 1:34 PM CDT LABORATORIES ng/mL Tetrahydrocannabinol Negative Cutoff: 10/30/2020 [facility] 50 ng/mL 1:34 PM CDT LABORATORIES Comment: ADDITIONAL INFORMATIO N This report is intended for use in clini wilfred monitoring or management of patients. ??It is not inte nded for use in employment-related testing. Codeine Not Detected Cutoff: 25 ng/mL 10/30/2020 1:34 PM [facility] CDT LABORATORIES Comment: Tylenol 3 Fyqzvjg-9-bfxj-glucuronide Not Detected Cutoff: 100 10/31/19 21 [facility] ng/mL 1:34 PM CDT LABORATORIES Comment: Metabolite of codeine Morphine Urine Not Detected Cutoff: 10/30/2020 1:34 PM [facility] ng/mL CDT LABORATORIES Comment: Emilia Perry, MS Contin; Also a minor metabolite (10%) of codeine and can be seen in low concentra tions (<2,000 ng/mL) with poppy seed ingestion. Dhtsjcor-6-sqmf-glucuronide Not Detected Cutoff: 100 021 [facility] ng/mL 1:34 PM CDT LABORATORIES Comment: Metabolite of morphine 6-monoacetylmorphine Not Detected Cutoff: 25 10/30/2020 1:34 [facility] ng/mL PM CDT LABORATORIES Comment: Metabolite of heroin Hydrocodone Not Detected Cutoff: 25 ng/mL 10/30/2020 1:34 PM [facility] CDT LABORATORIES Comment: Lortab, [place], Vicodin; Also a very pho[place] r metabolite of codeine and impurity (<1%) of oxycodone. Norhydrocodone Not Detected Cutoff: 10/30/2020 1:34 PM [facility] ng/mL CDT LABORATORIES Comment: Metabolite of hydrocodone Dihydrocodeine Not Detected Cutoff: 25 10/30/2020 1:34 PM [facility] ng/mL CDT LABORATORIES Comment: Metabolite of hydrocodone Hydromorphone Not Detected Cutoff: 25 ng/mL 10/30/2020 1:34 PM [facility] CDT [facility] Comment: Dilaudid, Exalgo; Also a metabolite of h ydrocodone and a minor (<5%) metabolite of morphine. Ggyrtbxijutso-8-kzxh-glucuronide Not Cutoff: 021 [facility] Detected 100 ng/mL 1:34 PM CDT LABORATORIES Comment: Metabolite of hydromorphone Oxycodone Not Detected Cutoff: 25 ng/mL 10/30/2020 1:34 PM [facility] CDT [facility] Comment: Endocet, Percocet, Oxycontin Noroxycodone Not Detected Cutoff: 25 ng/mL 10/30/2020 1:34 [facility] Comment: Metabolite of oxycodone Oxymorphone Not Detected Cutoff: 25 ng/mL 10/30/2020 1:34 PM [facility] CDT LABORATORIES Comment: Numorphan, Opana; Also a metabolite of o xycodone. Kicfodkkean-1-hmag-glucuronide Not Detected Cutoff: 2020 [facility] 100 ng/mL 1:34 PM CDT LABORATORIES Comment: Metabolite of oxymorphone and/or naloxon e (nornaloxone) Noroxymorphone Not Detected Cutoff: 25 10/30/2020 1:34 PM [facility] ng/mL CDT LABORATORIES Comment: Metabolite of oxymorphone and/or naloxon e (nornaloxone) Fentanyl Not Detected Cutoff: 2 ng/mL 10/30/2020 1:34 PM [facility] CDT LABORATORIES Comment: Actiq, Duragesic, Fentora Norfentanyl Not Detected Cutoff: 2 ng/mL 10/30/2020 1:34 PM [facility] CDT LABORATORIES Comment: Metabolite of fentanyl Meperidine Not Detected Cutoff: 25 ng/mL 10/30/2020 1:34 PM [facility] CDT LABORATORIES Comment: Demerol Normeperidine Not Detected Cutoff: 25 ng/mL 10/30/2020 1:34 PM [facility] CDT LABORATORIES Comment: Metabolite of meperidine Naloxone Not Detected Cutoff: 25 ng/mL 10/30/2020 1:34 PM [facility] CDT LABORATORIES Comment: Narcan Wgirkdxj-7-vxfg-glucuronide Present (A) Cutoff: 100 10/31/19 [facility] ng/mL 1:34 PM CDT LABORATORIES Comment: Metabolite of naloxone Methadone Not Detected Cutoff: 25 ng/mL 10/30/2020 1:34 PM [facility] CDT LABORATORIES Comment: Dolophine EDDP Not Detected Cutoff: 25 ng/mL 10/30/2020 1:34 PM [facility] LAB[facility]ATORIES Comment: Metabolite of methadone Propoxyphene Not Detected Cutoff: 25 ng/mL 10/30/2020 1:34 [facility] CDT [facility] Comment: Darvon, Darvocet Norpropoxyphene Not Detected Cutoff: 25 10/30/2020 1:34 PM [facility] ng/mL CDT LABORATORIES Comment: Metabolite of propoxyphene Tramadol Not Detected Cutoff: 25 ng/mL 10/30/2020 1:34 PM [facility] CDT LABORATORIES Comment: Tradol, Ultram, Ultracet O-desmethyltramadol Not Detected Cutoff: 25 10/30/2020 1:34 [facility] ng/mL PM CDT LABORATORIES Comment: Metabolite of tramadol Tapentadol Not Detected Cutoff: 25 ng/mL 10/30/2020 1:34 PM [facility] CDT LABORATORIES Comment: Nucynta N-desmethyltapentadol Not Detected Cutoff: 50 10/30/2020 1:3 4 [facility] ng/mL PM CDT LABORATORIES Comment: Metabolite of tapentadol Vaobgzyzbn-xifn-ubjllruvjpo Not Detected Cutoff: 100 021 [facility] ng/mL 1:34 PM CDT LABORATORIES Comment: Metabolite of tapentadol Buprenorphine Present (A) Cutoff: 5 ng/mL 10/30/2020 1:34 PM [facility] CDT LABORATORIES Comment: Buprenex, Suboxone Norbuprenorphine Present (A) Cutoff: 5 ng/mL 10/30/2020 1:34 PM [facility] CDT LABORATORIES Comment: Metabolite of buprenorphine Norbuprenorphine Present (A) Cutoff: 20 10/30/2020 1:34 [facility] glucuronide ng/mL PM CDT LABORATORIES Comment: Metabolite of buprenorphine Opioid Interpretation - 10/30/2020 1:34 PM CDT [facility] Comment: Test detected the presence of buprenorph ine and its metabolites (norbuprenorphine and norbup renorphine glucuronide) along with naloxone metabol ite (byeqdmde-7-borh-glucuronide). Suspect u se of buprenorphine with naloxone (e.g. Suboxone) within the past three days. ADDITIONAL INFORMATIO N This test was developed and its performa nce characteristics determined by [facility] in a manner co nsistent with CLIA requirements. This test has not been madeleine ared or approved by the U.S. Food and Drug Administration. Creatinine, Urine 53.5 mg/dL 10/30/2020 1:34 [facility] PM CDT LABORATORIES Specific [place], 1.013 10/30/2020 1:34 [facility] Urine PM CDT LABORATORIES pH, Urine 6.2 10/30/2020 1:34 [facility] PM CDT LABORATORIES Oxidants Negative Cutoff: 200 10/30/2020 1:34 [facility] mg/L PM CDT LABORATORIES Comment Normal 10/30/2020 1:34 [facility] PM CDT LABORATORIES Alprazolam Not Detected Cutoff: 10/30/2020 1:34 [facility] ng/mL PM CDT LABORATORIES Comment: Xanax Alpha-Hydroxyalprazolam UR Not Detected Cutoff: [facility] ng/mL 1:34 PM CDT LABORATORIES Comment: Metabolite of Alprazolam Alpha-Hydroxyalprazolam Not Detected Cutoff: 50 10/30/2020 [facility] Glucuronide ng/mL 1:34 PM CDT LABORATORIES Comment: Metabolite of Alprazolam Chlordiazepoxide Not Detected Cutoff: 10/30/2020 1:34 [facility] ng/mL PM CDT LABORATORIES Comment: Librium Clobazam Not Detected Cutoff: 10 ng/mL 10/30/2020 1:34 PM [facility] CDT LAB[facility] Comment: Eli Onheather N-Desmethylclobazam Not Detected Cutoff: 200 10/30/2020 1:34 [facility] ng/mL PM CDT LABORATORIES Comment: Metabolite of Clobazam Clonazepam Lvl Not Detected Cutoff: 10/30/2020 1:34 PM [facility] ng/mL CDT [facility] Comment: Klonopin, Rivotril 7-Aminoclonazepam Not Detected Cutoff: 10/30/2020 1:34 [facility] ng/mL PM CDT LAB[facility] Comment: Metabolite of Clonazepam Diazepam UR Not Detected Cutoff: 10/30/2020 1:34 PM [facility] Quant ng/mL CDT LABORATORIES Comment: Valium Nordiazepam Not Detected Cutoff: 10 ng/mL 10/30/2020 1:34 PM [facility] CDT LABORATORIES Comment: Metabolite of Chlordiazepoxide, Diazepam , or Prazepam. Flunitrazepam Not Detected Cutoff: 10 ng/mL 10/30/2020 1:34 PM [facility] CDT LABORATORIES Comment: Rohypnol 7-Aminoflunitrazepam Not Detected Cutoff: 10 10/30/2020 1:34 [facility] ng/mL PM CDT LABORATORIES Comment: Metabolite of Flunitrazepam Flurazepam Not Detected Cutoff: 10 ng/mL 10/30/2020 1:34 PM [facility] CDT LABORATORIES Comment: Dalmane 2- hydroxy ethyl Not Detected Cutoff: 10/30/2020 1:34 [facility] flurazepam ng/mL PM CDT LABORATORIES Comment: Metabolite of Flurazepam Lorazepam Not Detected Cutoff: 10 ng/mL 10/30/2020 1:34 PM [facility] CDT LABORATORIES Comment: Ativan Lorazepam Not Detected Cutoff: 50 10/30/2020 1:34 [facility] Glucuronide ng/mL PM CDT LABORATORIES Comment: Metabolite of Lorazepam Midazolam Not Detected Cutoff: 10 ng/mL 10/30/2020 1:34 PM [facility] CDT LAB[facility] Comment: Versed Alpha-Hydroxy Not Detected Cutoff: 10/30/2020 1:34 [facility] Midazolam ng/mL PM CDT LABORATORIES Comment: Metabolite of Midazolam Oxazepam Not Detected Cutoff: 10 ng/mL 10/30/2020 1:34 PM [facility] CDT LABOR[facility]IES Comment: Serax; Also a metabolite of Chlordiazepo xide, Diazepam, or Temazepam. Oxazepam Not Detected Cutoff: 50 10/30/2020 1:34 [facility] Glucuronide ng/mL PM CDT LABORATORIES Comment: Metabolite of Oxazepam Prazepam, urine Not Detected Cutoff: 10/30/2020 1:34 PM [facility] ng/mL CDT LABORATORIES Comment: Centrax Temazepam Not Detected Cutoff: 10 ng/mL 10/30/2020 1:34 PM [facility] CDT LABORATORIES Comment: Restoril; Also a metabolite of Diazepam. Temazepam Not Detected Cutoff: 50 10/30/2020 1:34 [facility] Glucuronide ng/mL PM CDT LABORATORIES Comment: Metabolite of Temazepam Triazolam Not Detected Cutoff: 10 ng/mL 10/30/2020 1:34 PM [facility] CDT LAB[facility]IES Comment: Halcion Alpha-Hydroxy Not Detected Cutoff: 10/30/2020 1:34 [facility] Triazolam ng/mL PM CDT LABORATORIES Comment: Metabolite of Triazolam Zolpidem Not Detected Cutoff: 10 ng/mL 10/30/2020 1:34 PM [facility] CDT [facility] Comment: Ambien Zolpidem Not Detected Cutoff: 10 10/30/2020 1:34 [facility] Kdyprw-8-Yeyffjuzbp acid ng/mL PM CDT LABOR ATORIES Comment: Metabolite of Zolpidem Benzodiazepine, Interp - 10/30/2020 1:34 P M CDT [facility] Comment: No benzodiazepines were detected. The ab sence of expected drug(s) and/or drug metabolite(s) may in dicate non-compliance, altered pharmacokinetics , inappropriate timing of specimen collection relative t o drug administration, diluted/adulterated urin e, or limitations of testing. ADDITIONAL INFORMATIO N This test was developed and its performa nce characteristics determined by [facility] in a manner co nsistent with CLIA requirements. This test has not been madeleine ared or approved by the U.S. Food and Drug Administration. Methamphetamine Not Detected Cutoff: 100 10/30/2020 1:34 PM [facility] ng/mL CDT LABORATORIES Comment: Desoxyn Amphetamines Not Detected Cutoff: 100 10/30/2020 1:34 PM [facility] ng/mL CDT [facility] Comment: Dyanavel XR, Adzenys ER, Adderall, Vyvan se; Also a metabolite of methamphetamine 3,4 Not Cutoff: 10/30/2020 [facility] Methylenedioxymethamphetamine Detected 100 ng/mL 1:34 PM CD T LABORATORIES 3,4 Not Cutoff: 10/30/2020 [facility] Jwzssigbzssynw-D-kkypfxrejsepfqc Detected 100 ng/mL 1:34 PM CDT LABORATORIES e (MDEA) 3,4 Methylenedioxyamphetamine Not Cutoff: 10/30/2020 [facility] Detected 100 ng/mL 1:34 PM CDT LABORATORIES Comment: Also a metabolite of MDMA and/or MDEA Ephedrines Not Detected Cutoff: 100 10/30/2020 1:34 [facility] ng/mL PM CDT LABORATORIES Psuedoephederine Not Detected Cutoff: 100 10/30/2020 1:34 [facility] ng/mL PM CDT LAB[facility] Comment: Sudafed Phentermine Not Detected Cutoff: 10/30/2020 1:34 PM [facility] ng/mL CDT LAB[facility]ATORIES Comment: Adipex-P, Lomaira, Qsymia Phencyclicine (PCP) Not Detected Cutoff: 10/30/2020 1:34 [facility] ng/mL PM CDT LABORATORIES Methylphenidate Not Detected Cutoff: 10/30/2020 1:34 [facility] ng/mL PM CDT LABORATORIES Comment: Ritalin, Concerta Ritalinic Acid Not Detected Cutoff: 10/30/2020 1:34 PM [facility] ng/mL CDT LAB[facility]ATORIES Comment: Metabolite of methylphenidate Stimulant Interpretation - 10/30/2020 1:34 PM CDT [facility] Comment: No stimulants were detected. The absence of expected drug(s) and/or drug metabolite(s) may in dicate non-compliance, altered pharmacokinetics , inappropriate timing of specimen collection relative t o drug administration, diluted/adulterated urin e, or limitations of testing. ADDITIONAL INFORMATIO N This test was developed and its performa nce characteristics determined by [facility] in a manner co nsistent with CLIA requirements. This test has not been madeleine ared or approved by the U.S. Food and Drug Administration. Test Performed by: [place] [id number] [employer] Supervisor: Benigno Selby M.D. Ph. D.; CLIA# [id number] List patient's Not provided 10/30/2020 1:34 PM CDT [facility] LABORATORIES Comment: ADDITIONAL INFORMATIO N Accuracy and completeness of declared me dications on reports solely dependent on information submitted by client. Specimen Anatomical Collection Method Collection Time Receive d Time (Source) Location / / Volume Laterality Urine 10/27/2020 3:26 PM 07/19/202 1 3:50 CDT PM CDT Omid Morales PA-C LAB URINE ORDERABLES Performing Organization Address City/State/ZIP Code Phon e Number [facility] see result attachment for specific address documented in this encounter Visit Diagnoses Diagnosis Opioid use disorder, moderate, in early remission, on maintenance therapy (HCC) documented in this encounter Care Teams Acct Exec Relationship Specialty Start Date End Date None, Pcp PCP - General Bell Cleaner 02/06/19 [address] [place] [address] documented as of this encounter
--- OUTSIDE RECORDS SUMMARY | 2022-01-14 01:43 | XMS_ITS | Encounter Summary ---
:1990 Author Organization [facility] Address [address] [place] [address] Care Team Providers Name Role Phone None, Pcp Primary Care Provider Unavailable Reason for Visit Reason Onset Date Comments Prior auth approval 10/28/2020 Encounter Details Date Type Department Care Team Description 10/28/2020 Telephone SE MEDICATION ASSISTED Savana Morton RN Prior auth approval [facility] [address] [facility] [place] [address] [place] [id number] Social History Tobacco Use Types Packs/Day Years [...] 03/21/2020 relatives? How often do you attend restorationism or latter day Not asked 03/21/2020 services? Do you belong to any clubs or organizations such as Argelia schilling 03/21/2020 restorationism groups, unions, fraternal or athletic groups, or [...] this encounter Miscellaneous Notes Telephone Encounter - Savana Morton RN - 10/28/2020 12:51 PM CDT Called and left message regarding PA approval and new script sent to [facility] in [facility] for pickup today. Directed her to call if any further issues. documented in this encounter Plan of Treatment Not on filedocumented as of this encounter Goals Goal Patient Goal Associated Recent Patient-Stated? Author Type Problems Progress secure housing General Yes Melissa Coronado, DNP, APPLE SORTER, HELP DESK SUPPORT Note: Formatting of this note might be d ifferent from the original. - has applied for several housing lists; waiting to hear back, wants to be near family Quit using tobacco (cigarettes, Tobacco Use No Melissa Coronado, DNP, APPLE SORTER, smokeless, etc) HELP DESK SUPPORT Note: Formatting of this note might be d ifferent from the original. Will use nicorette gum in case of breakt hrough craving. Will find some candy or suckers to use d uring group to occupy her hands/oral fixation documented as of this encounter Visit Diagnoses Not on filedocumented in this encounter Care Teams Stud Beef Cattle Farmer Relationship Specialty Start Date End Date None, Pcp PCP - General Superintendent Laundry 02/06/19 [address] [place] [address] documented as of this encounter
--- OUTSIDE RECORDS SUMMARY | 2022-01-14 01:43 | XMS_ITS | Encounter Summary ---
:1990 Author Organization [facility] Address [address] [place] [address] Care Team Providers Name Role Phone None, Pcp Primary Care Provider Unavailable Reason for Visit Reason Onset Date Comments Missed Appointment 12/25/2020 Encounter Details Date Type Department Care Team Description 12/25/2020 Telephone SE Internal Medicine Gayla Estrada Missed Appointment [address] [place] [address] [address] [facility] [phone] [place] [address] Social History Tobacco Use Types [...] How often do you attend orthodox or catholic Not asked 03/21/2020 services? Do you belong [...] Telephone Encounter - Gayla Estrada LPN - 12/25/2020 3:49 PM CDT Attempted a call to patient regarding her missed follow up appointment today; LMTCB. documented in this encounter Plan of Treatment Not on filedocumented as of this encounter Goals Goal Patient Goal Associated Recent Patient-Stated? Author Type Problems Progress secure housing General Yes Melissa Coronado, DNP, SITE SUPERVISING TECHNICAL OPERATOR, LOAN ANALYST Note: Formatting of this note might be d ifferent from the original. - has applied for several housing lists; waiting to hear back, wants to be near family Quit using tobacco (cigarettes, Tobacco Use No Melissa Coronado, DNP, SITE SUPERVISING TECHNICAL OPERATOR, smokeless, etc) LOAN ANALYST Note: Formatting of this note might be d ifferent from the original. Will use nicorette gum in case of breakt hrough craving. Will find some candy or suckers to use d uring group to occupy her hands/oral fixation documented as of this encounter Visit Diagnoses Not on filedocumented in this encounter Care Teams Java Lead Developer Relationship Specialty Start Date End Date None, Pcp PCP - General Field Checker 02/06/19 [address] [place] [address] documented as of this encounter
--- OUTSIDE RECORDS SUMMARY | 2022-01-14 01:43 | XMS_ITS | Encounter Summary ---
:1990 Author Organization [facility] Address [address] [place] [address] Care Team Providers Name Role Phone None, Pcp Primary Care Provider Unavailable Reason for Visit Reason Comments MAT Clinic Follow Up Encounter Details Date Type Department Care Team Description 10/27/2020 Office Visit SE MEDICATION Ivonne, Melissa Opioid use disorder, ASSISTED TREATMENT K., DNP, LACEMAKER, SENIOR PROJECT COORDINATOR moderate, in early [address], [place] [address] [place] maintenance therapy [phone] (HCC) (Primary Dx) Social History Tobacco Use [...] 03/21/2020 relatives? How often do you attend jain or amish Not asked 03/21/2020 services? Do you belong to any clubs or organizations such as Argelia schilling 03/21/2020 jain groups, unions, fraternal or athletic groups, or [...] place to sleep or slept in a halfway (including now)? Education Answer Date Recorded What is the highest level of school you have High school gra duate 03/21/2020 completed or the highest degree you have received? Sex Assigned at Date Recorded Not on file documented as of this encounter Last Filed Vital Signs Vital Sign Reading Time Taken Comments Blood Pressure 130/78 10/27/2020 3:32 PM CDT Pulse 82 10/27/2020 3:32 PM CDT Temperature 36.6 ??C (97.8 ??F) 10/27/2020 3:32 PM CDT Respiratory Rate - - Oxygen Saturation 99% 10/27/2020 3:32 PM CDT Inhaled Oxygen Concentration - - Weight - - Height - - Body Mass Index - - documented in this encounter Patient Instructions Patient InstructionsMelissa Coronado DNP, APRN, IMK - 10/27/2020 3:00 PM CDT Continue Subutex 8 mg and 2 mg twice daily. Follow up on 11/24/2020 with lab prior. Call MAT clinic at [phone] with any questions or concerns. documented in this encounter Progress Notes Melissa Coronado DNP, APRN, MIK - 10/27/2020 3:00 PM CDT MAT Clinic Follow Up Note Discussion Date: 10/27/2020 4:57 PM CHIEF COMPLAINT: Anjali presents for MAT Clinic follow up visit for management of opioid use disorder. Last visit: 09/26/2020 She has been taking Suboxone as prescribed: Yes Current total daily dose is 20 mg Suboxone film/tab count is within range: Yes Stores Suboxone securely: Yes Used any mood altering drugs since last visit: No Cravings for narcotics: No Suboxone side effects: No Urine Toxicology: Expected results Pt is a 30 yo female who presents for buprenorphine follow-up. Stable with 10 mg twice daily Subutex. No cravings, no use. Delivered healthy baby boy on October 03. She has been nursing, but recently reports that her milk supply is dwindling fast. She worries that she may have plugged ducts, and that the baby may be withdrawing due to not having regular Subutex through the breastmilk. She notes he hasbeen more irritable, but has also been adjusting to formula. He wants to eat all the time but has somuch gas. Discussed it is difficult to determine how much bioavailable Subutex he is actually getting; irritability may be more to do with adjusting to formula. [facility] In terms of her recovery, she is doing amazingly well. She feels stable and has been a rock for others who are struggling. She is still in a relationship with Martin's father, and this is going well. Her boyfriend is still in treatment but they were able to spend the weekends together. She finds a lot of encouragement through attending jain. She is still vaping nicotine, but less so. She relates she has moved into a new apartment in [place], [place]. She is having some issues with her insurance and a delay in the prior authorization for Subutex 8 mg tablets. Provider spent considerable amount of time speaking to prior author team at [facility] to obtain PA. FUNCTIONAL HEALTH Mood: good, excited Sleep: not [...] supporting others Meaningful spiritual practices or beliefs... Christianity, finds hope and strength in her casper ASSESSMENT: Problem List Items Addressed This Visit Other Opioid use disorder, moderate, in early remission, on maintenance therapy (HCC) - Primary Overview 04/23/20 RUDS at each visit, negative 04/23/2020.-MSR Last UDS negative 05/22/2020 Transfer of care to the MAT clinic for ongoing buprenorphine therapy 04/17/2020 Currently on 20 mg Subutex daily Current Assessment & Plan It was a pleasure to visit with Ms. Hoang. She is maintained at stable dose of 20 mg Subutex daily. She delivered a healthy baby boy via and is adjusting to life with the again. Concerns: nicotine dependence; emotional health, relationship with child's father Last UDS results: as expected Today's Plan: Continue Subutex 20 mg daily with follow-up in 4 weeks Relevant Medications buprenorphine (SUBUTEX) 8 MG buprenorphine (SUBUTEX) 2 MG Other Relevant Orders Controlled Substance Monitoring Panel, Urine Orders Placed This Encounter Procedures ??? Controlled Substance Monitoring Panel, Urine MAT Clinic Standing Status: Future Standing Expiration Date: 10/27/2021 PLAN: Continue with MAT Clinic Treatment Program and plan of care. Patient will follow up in 4 week(s) Patient Instructions Continue Subutex 8 mg and 2 mg twice daily. Follow up on 11/24/2020 with lab prior. Call MAT clinic at [phone] with any questions or concerns. Melissa Coronado DNP, NICHOLAS, SENIOR PROJECT COORDINATOR documented in this encounter Miscellaneous Notes Assessment & Plan Note - Melissa Coronado DNP, APRN, MIK - 10/27/2020 4:56 PM CDTAssociated Problem(s): Opioid use disorder, moderate, in early remission, on maintenance therapy (HCC) It was a pleasure to visit with Ms. Hoang. She is maintained at stable dose of 20 mg Subutex daily. She delivered a healthy baby boy via and is adjusting to life with the again. Concerns: nicotine dependence; emotional health, relationship with child's father Last UDS results: as expected Today's Plan: Continue Subutex 20 mg daily with follow-up in 4 weeks Addendum Note - Melissa Coronado DNP, APRN, MIK - 10/27/2020 3:00 PM CDT Addended by: MELISSA CORONADO on: 10/28/2020 12:47 PM Modules accepted: Orders documented in this encounter Plan of Treatment Not on filedocumented as of this encounter Goals Goal Patient Goal Associated Recent Patient-Stated? Author Type Problems Progress secure housing General Yes Melissa Coronado DNP, NICHOLAS, MIK Note: Formatting of this note might be d ifferent from the original. - has applied for several housing lists; waiting to hear back, wants to be near family Quit using tobacco (cigarettes, Tobacco Use No Melissa Coronado, JUAN DIEGO, NICHOLAS, smokeless, etc) SENIOR PROJECT COORDINATOR Note: Formatting of this note might be [...] Primary documented in this encounter Care Teams Air Crew Member Relationship Specialty Start Date End Date None, Pcp PCP - General Grape Pruner 02/06/[address] [place] [phone] documented as of this encounter
--- OUTSIDE RECORDS SUMMARY | 2022-01-14 01:44 | XMS_ITS | Encounter Summary ---
:1990 Author Organization [facility] Address [address] [place] [address] Care Team Providers Name Role Phone None, Pcp Primary Care Provider Unavailable Encounter Details Date Type Department Care Team Description 07/29/2020 Hospital Encounter [facility] Ul[facility]ound [address] [place] [address] Social History Tobacco Use Types Packs/Day Years [...] 03/21/2020 relatives? How often do you attend zoroastrianism or jainism Not asked 03/21/2020 services? Do you belong to any clubs or organizations such as Not chinmay schilling 03/21/2020 zoroastrianism groups, unions, fraternal or athletic groups, or [...] place to sleep or slept in a long-term (including now)? Education Answer Date Recorded What is the highest level of school you have High school thony rodriguezmohamud 03/21/2020 completed or the highest degree you have received? Sex Assigned at Date Recorded Not on file documented as of this encounter Medications at Time of Discharge Medication Sig Dispensed Refills Start Date End Date acetaminophen (TYLENOL) Take 1,000 mg by 0 500 MG tablet mouth every 6 (six) hours if needed for mild pain aspirin EC 81 MG EC Take 81 mg by 0 06/20/2020 tablet mouth daily albuterol HFA (Ventolin Inhale 2 puffs 18 g 1 04/01/20 20 05/06/2021 HFA) 108 (90 Base) every 4 (four) MCG/ACT hours if needed inhalerIndications: for wheezing or Mild intermittent shortness of asthma without breath complication amoxicillin (AMOXIL) TAKE ONE CAPSULE 0 1 10/27/2020 500 MG capsule BY MOUTH EVERY 8 HOURS bisacodyl (DULCOLAX) 10 INSERT ONE 28 suppository 0 07/23/19 21 05/06/2021 MG SUPPOSITORY INTO suppositoryIndications: THE RECTUM ONCE Other constipation DAILY FOR 28 DAYS buprenorphine (SUBUTEX) Take one tablet in 56 tablet 0 06/1007/31/2020 2 MGIndications: Opioid the morning (with use disorder, moderate, 8 mg tablet) and in early remission, on one tablet in the maintenance therapy evening (with 8 mg (HCC) tablet). Total daily dose 20 mg. buprenorphine (SUBUTEX) Take 1 tablet in 56 tablet 0 202007/31/2020 8 MGIndications: Opioid the am (with 2 mg use disorder, moderate, tablet) and 1 in early remission, on tablet in the pm maintenance therapy (with 2 mg (HCC) tablet). Total daily dose 20 mg. doxylamine (UNISON) 25 Take 1 tablet (25 30 tablet 3 202010/27/2020 MG tabletIndications: mg total) by mouth Supervision of high at night if needed risk , for sleep Take 1 antepartum, Insomnia, tablet at bedtime unspecified type as needed for nausea. nicotine polacrilex Chew 1 each (4 mg 100 each 0 1 08/29/2020 (Nicorette) 4 MG total) if needed gumIndications: Opioid for smoking use disorder, moderate, cessation in early remission, on maintenance therapy (HCC) omeprazole (PriLOSEC) Take 1 capsule (20 90 capsule 3 202005/06/[address] mg total) by mouth capsuleIndications: 1 (one) time each Gastroesophageal reflux day Do not crush disease, unspecified or chew. whether esophagitis present MV-Min-Fe Take 1 tablet by 90 capsule 3 04/22/2020 10/27/2020 Fum-FA-DHA ( 1) mouth 1 (one) time 30-0.975-200 MG each day capsuleIndications: test positive Vit-Fe Take by mouth 0 2020 Fumarate-FA ( MULTIVITAMINS PO) pyridoxine (B-6) 50 MG Take 50 mg by 0 02/25/2020 10/27/2020 tablet mouth 2 times daily documented as of this encounter Plan of Treatment Not on filedocumented as of this encounter Goals Goal Patient Goal Associated Recent Patient-Stated? Author Type Problems Progress secure housing General Yes Melissa Coronado, DNP, ORNAMENTAL METAL WORKER, CENTERLESS GRINDING MACHINE ADJUSTER Note: Formatting of this note might be d ifferent from the original. - has applied for several housing lists; waiting to hear back, wants to be near family Quit using tobacco (cigarettes, Tobacco Use No Melissa Coronado, JUAN DIEGO, ORNAMENTAL METAL WORKER, smokeless, etc) CENTERLESS GRINDING MACHINE ADJUSTER Note: Formatting of this note might be d ifferent from the original. Will use nicorette gum in case of breakt hrough craving. Will find some candy or suckers to use d uring group to occupy her hands/oral fixation documented as of this encounter Procedures Procedure Name Priority Date/Time Associated Comments Diagnosis US OB FOLLOW UP Routine 07/29/2020 3:02 PM Combined drug Resul ts for this TRANSABDOMINAL APPROACH CDT dependence, proc edure are in continuous abuse the results (HCC) section. documented in this encounter Results Ultrasound OB follow-up transabdominal approach (07/29/2020 3:02 PM CDT) Anatomical Region Laterality Modality Body Ultrasound Specimen (Source) Anatomical Collection Method Collection Time Re ceived Time Location / / Volume Laterality 07/29/2020 3:02 PM CDT Impressions 08/11/2020 9:52 AM CDT IMPRESSION: Single viable intrauterine at 30 weeks and 3 days with best HAZEL 10/04/2020. ??Size equals dates. ??1414 g. ??14th percentile. ??AC 24th percentile. ??Isolated short femur noted at 4 percentile. ??Normal cardiac activity and no apparent abnorma lities on limited survey. ??Fetus is cephalic. ??Amniotic fluid is normal with an YEVGENIY of 14.9 cm. ??Placenta is posterior without previa. FINDINGS: Best HAZEL: October 04, 2020 BIOMETRY Fetus 1: Position: Cephalic EFW: 1414 grams EFW percentile by best E DD: 14 percent Amniotic Fluid index: 14.91 cm BPD: 7.70 cm, 31w0d, 54 percent Head Circumference: 28.40 cm, 31w2d, 34 percent Abdominal Circumference: 25.50 cm, 29w5d , 24 Percent Femur length: 5.40 cm, 28w5d, 4 Percent Heart Rate: 134 bpm Overall composite biometry: 30w2d The following anatomic structures were s een and were within normal limits. ?? Profile, four-chamber heart, RVOT, LVOT, three-vessel trachea view, aortic arch, ductal arch, stomach, kidneys, roberto dder, diaphragm. Narrative 08/11/2020 9:52 AM CDT INDICATION: drug dependence EXAM DESCRIPTION: Follow-up ultrasound for growth TECHNIQUE: IMAGING: Transabdominal QUALITY: Satisfactory CONCRETE PIPE PLANT SUPERVISOR: Sandy Procedure Note Molly Shea MD - 08/11/2020Formattin g of this note might be different from the original. INDICATION: drug dependence EXAM DESCRIPTION: Follow-up ultrasound for growth TECHNIQUE: IMAGING: Transabdominal QUALITY: Satisfactory CONCRETE PIPE PLANT SUPERVISOR: Sandy IMPRESSION: Single viable intrauterine at 30 weeks and 3 days with best HAZEL 10/04/2020. Size equals dates. 1414 g. 1 4th percentile. AC 24th percentile. Isolated short femur noted a t 4 percentile. Normal cardiac activity and no apparent abnorma lities on limited survey. Fetus is cephalic. Amniotic fluid is normal wi th an YEVGENIY of 14.9 cm. Placenta is posterior without previa. FINDINGS: Best HAZEL: October 04, 2020 BIOMETRY Fetus 1: Position: Cephalic EFW: 1414 grams EFW percentile by best E DD: 14 percent Amniotic Fluid index: 14.91 cm BPD: 7.70 cm, 31w0d, 54 percent Head Circumference: 28.40 cm, 31w2d, 34 percent Abdominal Circumference: 25.50 cm, 29w5d , 24 Percent Femur length: 5.40 cm, 28w5d, 4 Percent Heart Rate: 134 bpm Overall composite biometry: 30w2d The following anatomic structures were s een and were within normal limits. Profile, four-chamber heart, RVOT, LVOT, three-vessel trachea view, aortic arch, ductal arch, stomach, kidneys, roberto dder, diaphragm. Molly Shea MD IMG OB US PROCEDURES documented in this encounter Visit Diagnoses Not on filedocumented in this encounter Care Teams Station Mechanic Helper Relationship Specialty Start Date End Date None, Pcp PCP - General Supervisor Billposting 02/06/[address] [place] [phone] documented as of this encounter
--- OUTSIDE RECORDS SUMMARY | 2022-01-14 01:44 | XMS_ITS | Encounter Summary ---
:1990 Author Organization [facility] Address [address] [place] [address] Care Team Providers Name Role Phone None, Pcp Primary Care Provider Unavailable Encounter Details Date Type Department Care Team Description 07/31/2020 Lab SE Lab Opioid use disorder, moderat e, [address] in early remission, [place] [address] maintenance therapy ([facility] [phone] Social History Tobacco Use Types Packs/Day Years [...] 03/21/2020 relatives? How often do you attend baptism or scientology Not asked 03/21/2020 services? Do you belong to any clubs or organizations such as Not askbreanne schilling 03/21/2020 baptism groups, unions, fraternal or athletic groups, or [...] documented as of this encounter Miscellaneous Notes Result Encounter Note - Melissa Coronado DNP, APRN, MIK - 07/31/2020 1:00 PM CDT As expected, compliant with Subutex, no illicit substances. documented in this encounter Plan of Treatment [...] (cigarettes, Tobacco Use No Melissa Coronado DNP, NICHOLAS, smokeless, etc) DOGGER Note: Formatting of this note might be d ifferent from the original. Will use nicorette gum in case of breakt hrough craving. Will find some candy or suckers to use d uring group to occupy her hands/oral fixation documented as of this encounter Procedures Procedure Name Priority Date/Time Associated Diagnosis Comme nts CONTROLLED Routine 07/31/2020 1:25 PM Opioid use disorder, R esults for this SUBSTANCES CDT moderate, in early procedure are in MONITORING PANEL, remission, on the resul URINE maintenance therapy section. (HCC) documented in this encounter Results (ABNORMAL) Controlled Substance Monitoring Panel, Urine (07/31/2020 1:25 PM CDT) Component Value Ref Test Analysis Performed At [facility] Range Method Time Signature Barbiturates Negative Cutoff: 08/02/2020 [facility] 200 2:42 PM CDT [facility] ng/mL Cocaine Negative Cutoff: 08/02/2020 [facility] 150 2:42 PM [facility]T [facility] ng/mL Tetrahydrocannabinol Negative Cutoff: 08/02/2020 [facility] 50 ng/mL 2:42 PM CDT LAB[facility]ATORIES Comment: ADDITIONAL INFORMATIO N This report is intended for use in clini wilfred monitoring or management of patients. ??It is not inte nded for use in employment-related testing. Codeine Not Detected Cutoff: 25 ng/mL 08/02/2020 2:42 PM [facility] Comment: Tylenol 3 Rvbdwjt-7-hlng-glucuronide Not Detected Cutoff: 100 08/03/19 21 [facility] ng/mL 2:42 PM [facility]T [facility] Comment: Metabolite of codeine Morphine Urine Not Detected Cutoff: 08/02/2020 2:42 PM [facility] ng/mL [facility]T [facility] Comment: Emilia Perry, MS Contin; Also a minor metabolite (10%) of codeine and can be seen in low concentra tions (<2,000 ng/mL) with poppy seed ingestion. Kvtnmejt-2-oufy-glucuronide Not Detected Cutoff: 100 021 [facility] ng/mL 2:42 PM [facility]T [facility] Comment: Metabolite of morphine 6-monoacetylmorphine Not Detected Cutoff: 25 08/02/2020 2:42 [facility] ng/mL PM CDT [facility] Comment: Metabolite of heroin Hydrocodone Not Detected Cutoff: 25 ng/mL 08/02/2020 2:42 PM [facility] CDT [facility] Comment: Lortab, [place], Vicodin; Also a very [place] r metabolite of codeine and impurity (<1%) of oxycodone. Norhydrocodone Not Detected Cutoff: 08/02/2020 2:42 PM [facility] ng/mL [facility]T [facility] Comment: Metabolite of hydrocodone Dihydrocodeine Not Detected Cutoff: 08/02/2020 2:42 PM [facility] ng/mL [facility] Comment: Metabolite of hydrocodone Hydromorphone Not Detected Cutoff: 25 ng/mL 08/02/2020 2:42 PM [facility] Comment: Dilaudid, Exalgo; Also a metabolite of h ydrocodone and a minor (<5%) metabolite of morphine. Nkgfdtzcuirxa-6-ycbz-glucuronide Not Cutoff: 021 [facility] Detected 100 ng/mL 2:42 PM CDT LAB[facility]ATORIES Comment: Metabolite of hydromorphone Oxycodone Not Detected Cutoff: 25 ng/mL 08/02/2020 2:[address] [facility] CDT LAB[facility]IES Comment: Endocet, Percocet, Oxycontin Noroxycodone Not Detected Cutoff: 25 ng/mL 08/02/2020 2:42 P [facility] CDT LAB[facility]ATORIES Comment: Metabolite of oxycodone Oxymorphone Not Detected Cutoff: 25 ng/mL 08/02/2020 2:42 PM [facility] CDT [facility] Comment: Numorphan, Opana; Also a metabolite of o xycodone. Llfbcvndngr-0-gbow-glucuronide Not Detected Cutoff: 2020 [facility] 100 ng/mL 2:42 PM CDT LAB[facility]ATORIES Comment: Metabolite of oxymorphone and/or naloxon e (nornaloxone) Noroxymorphone Not Detected Cutoff: 25 08/02/2020 2:42 PM [facility] ng/mL CDT LAB[facility]IES Comment: Metabolite of oxymorphone and/or naloxon e (nornaloxone) Fentanyl Not Detected Cutoff: 2 ng/mL 08/02/2020 2:42 PM [facility] CDT [facility] Comment: Actiq, Duragesic, Fentora Norfentanyl Not Detected Cutoff: 2 ng/mL 08/02/2020 2:42 PM [facility] CDT [facility] Comment: Metabolite of fentanyl Meperidine Not Detected Cutoff: 25 ng/mL 08/02/2020 2:42 PM [facility] CDT [facility] Comment: Demerol Normeperidine Not Detected Cutoff: 25 ng/mL 08/02/2020 2:42 PM [facility] CDT [facility] Comment: Metabolite of meperidine Naloxone Not Detected Cutoff: 25 ng/mL 08/02/2020 2:[address] [facility] CDT LAB[facility] Comment: Narcan Krobhdzp-6-eyyo-glucuronide Not Detected Cutoff: 100 021 [facility] ng/mL 2:42 PM CDT LAB[facility]IES Comment: Metabolite of naloxone Methadone Not Detected Cutoff: 25 ng/mL 08/02/2020 2:[address] [facility] CDT [facility] Comment: Dolophine EDDP Not Detected Cutoff: 25 ng/mL 08/02/2020 2:42 PM C DT [facility] Comment: Metabolite of methadone Propoxyphene Not Detected Cutoff: 25 ng/mL 08/02/2020 2:42 P [facility] CDT [facility] Comment: Darvon, Darvocet Norpropoxyphene Not Detected Cutoff: 25 08/02/2020 2:[address] [facility] ng/mL CDT LABORATORIES Comment: Metabolite of propoxyphene Tramadol Not Detected Cutoff: 25 ng/mL 08/02/2020 2:[address] [facility] CDT [facility] Comment: Tradol, Ultram, Ultracet O-desmethyltramadol Not Detected Cutoff: 25 08/02/2020 2:42 [facility] ng/mL PM CDT LABORATORIES Comment: Metabolite of tramadol Tapentadol Not Detected Cutoff: 25 ng/mL 08/02/2020 2:42 PM [facility] CDT [facility] Comment: Nucynta N-desmethyltapentadol Not Detected Cutoff: 50 08/02/2020 2:4 2 [facility] ng/mL PM CDT LABORATORIES Comment: Metabolite of tapentadol Bztbhipvgg-azjp-vuydbwdlluj Not Detected Cutoff: 100 021 [facility] ng/mL 2:42 PM CDT LAB[facility]IES Comment: Metabolite of tapentadol Buprenorphine Not Detected Cutoff: 5 ng/mL 08/02/2020 2:42 P [facility] CDT LAB[facility]IES Comment: Buprenex, Suboxone Norbuprenorphine Present (A) Cutoff: 5 ng/mL 08/02/2020 2:42 PM [facility] CDT LAB[facility] Comment: Metabolite of buprenorphine Norbuprenorphine Present (A) Cutoff: 20 08/02/2020 2:42 [facility] glucuronide ng/mL PM CDT LABORATORIES Comment: Metabolite of buprenorphine Opioid Interpretation - 08/02/2020 2:42 PM CDT [facility] Comment: Test detected the presence of norbupreno rphine and norbuprenorphine glucuronide which are m etabolites of buprenorphine. Suspect use of buprenorph ine within the past three days. ADDITIONAL INFORMATIO N This test was developed and its performa nce characteristics determined by [facility] in a manner co nsistent with CLIA requirements. This test has not been madeleine ared or approved by the U.S. Food and Drug Administration. Creatinine, Urine 78.5 mg/dL 08/02/2020 2:42 [facility] PM CDT LABORATORIES Specific [place], 1.011 08/02/2020 2:42 [facility] Urine PM CDT LABORATORIES pH, Urine 7.0 08/02/2020 2:42 [facility] PM CDT LAB[facility]IES Oxidants Negative Cutoff: 200 08/02/2020 2:42 [facility] mg/L PM CDT [facility] Comment Normal 08/02/2020 2:42 [facility] PM CDT LAB[facility]IES Alprazolam Not Detected Cutoff: 08/02/2020 2:42 [facility] ng/mL PM CDT LAB[facility]ATORIES Comment: Xanax Alpha-Hydroxyalprazolam UR Not Detected Cutoff: [facility] ng/mL 2:42 PM CDT LAB[facility] Comment: Metabolite of Alprazolam Alpha-Hydroxyalprazolam Not Detected Cutoff: 50 08/02/2020 [facility] Glucuronide ng/mL 2:42 PM CDT LABORATORIES Comment: Metabolite of Alprazolam Chlordiazepoxide Not Detected Cutoff: 08/02/2020 2:42 [facility] ng/mL PM CDT LAB[facility] Comment: Librium Clobazam Not Detected Cutoff: 10 ng/mL 08/02/2020 2:42 [facility] Comment: Frisium, Onfi N-Desmethylclobazam Not Detected Cutoff: 200 08/02/2020 2:42 [facility] ng/mL PM CDT [facility] Comment: Metabolite of Clobazam Clonazepam Lvl Not Detected Cutoff: 08/02/2020 2:42 PM [facility] ng/mL [facility]T [facility] Comment: Klonopin, Rivotril 7-Aminoclonazepam Not Detected Cutoff: 08/02/2020 2:42 [facility] ng/mL PM CDT [facility] Comment: Metabolite of Clonazepam Diazepam UR Not Detected Cutoff: 08/02/2020 2:42 PM [facility] Quant ng/mL CDT LAB[facility]ATORIES Comment: Valium Nordiazepam Not Detected Cutoff: 10 ng/mL 08/02/2020 2:42 PM [facility] CDT LAB[facility] Comment: Metabolite of Chlordiazepoxide, Diazepam , or Prazepam. Flunitrazepam Not Detected Cutoff: 10 ng/mL 08/02/2020 2:42 PM [facility] CDT [facility] Comment: Rohypnol 7-Aminoflunitrazepam Not Detected Cutoff: 10 08/02/2020 2:42 [facility] ng/mL PM CDT LAB[facility]IES Comment: Metabolite of Flunitrazepam Flurazepam Not Detected Cutoff: 10 ng/mL 08/02/2020 2:42 PM [facility] CDT [facility] Comment: Dalmane 2- hydroxy ethyl Not Detected Cutoff: 10 08/02/2020 2:42 [facility] flurazepam ng/mL PM CDT LABORATORIES Comment: Metabolite of Flurazepam Lorazepam Not Detected Cutoff: 10 ng/mL 08/02/2020 2:[address] [facility] CDT LAB[facility] Comment: Ativan Lorazepam Not Detected Cutoff: 50 08/02/2020 2:42 [facility] Glucuronide ng/mL PM CDT LABORATORIES Comment: Metabolite of Lorazepam Midazolam Not Detected Cutoff: 10 ng/mL 08/02/2020 2:[address] [facility] CDT [facility] Comment: Versed Alpha-Hydroxy Not Detected Cutoff: 10 08/02/2020 2:42 [facility] Midazolam ng/mL PM CDT LABORATORIES Comment: Metabolite of Midazolam Oxazepam Not Detected Cutoff: 10 ng/mL 08/02/2020 2:[address] [facility] CDT LAB[facility] Comment: Serax; Also a metabolite of Chlordiazepo xide, Diazepam, or Temazepam. Oxazepam Not Detected Cutoff: 50 08/02/2020 2:42 [facility] Glucuronide ng/mL PM CDT LABORATORIES Comment: Metabolite of Oxazepam Prazepam, urine Not Detected Cutoff: 10 08/02/2020 2:[address] [facility] ng/mL CDT LABORATORIES Comment: Centrax Temazepam Not Detected Cutoff: 10 ng/mL 08/02/2020 2:[address] [facility] CDT LAB[facility]IES Comment: Restoril; Also a metabolite of Diazepam. Temazepam Not Detected Cutoff: 50 08/02/2020 2:42 [facility] Glucuronide ng/mL PM CDT LABORATORIES Comment: Metabolite of Temazepam Triazolam Not Detected Cutoff: 10 ng/mL 08/02/2020 2:42 PM [facility] CDT [facility] Comment: Halcion Alpha-Hydroxy Not Detected Cutoff: 10 08/02/2020 2:42 [facility] Triazolam ng/mL PM CDT LABORATORIES Comment: Metabolite of Triazolam Zolpidem Not Detected Cutoff: 10 ng/mL 08/02/2020 2:42 PM [facility] CDT [facility] Comment: Ambien Zolpidem Not Detected Cutoff: 10 08/02/2020 2:42 [facility] Ihowkj-1-Fbtcbdopxs acid ng/mL PM CDT LABOR ATORIES Comment: Metabolite of Zolpidem Benzodiazepine, Interp - 08/02/2020 2:42 P M CDT [facility] Comment: No benzodiazepines were detected. The ab sence of expected drug(s) and/or drug metabolite(s) may in dicate non-compliance, altered pharmacokinetics , inappropriate timing of specimen collection relative t o drug administration, diluted/adulterated urin e, or limitations of testing. ADDITIONAL INFORMATIO N This test was developed and its performa nce characteristics determined by [facility] in a manner co nsistent with CLIA requirements. This test has not been madeleine ared or approved by the U.S. Food and Drug Administration. Methamphetamine Not Detected Cutoff: 100 08/02/2020 2:42 PM [facility] ng/mL CDT LAB[facility]ATORIES Comment: Desoxyn Amphetamines Not Detected Cutoff: 100 08/02/2020 2:42 PM [facility] ng/mL [facility]T [facility] Comment: Dyanavel XR, Adzenys ER, Adderall, Vyvan se; Also a metabolite of methamphetamine 3,4 Not Cutoff: 08/02/2020 [facility] Methylenedioxymethamphetamine Detected 100 ng/mL 2:42 PM CD T LABORATORIES 3,4 Not Cutoff: 08/02/2020 [facility] Ptxsapfknarufe-J-vwqkwdmyspjztag Detected 100 ng/mL 2:42 PM CDT LABORATORIES e (MDEA) 3,4 Methylenedioxyamphetamine Not Cutoff: 08/02/2020 [facility] Detected 100 ng/mL 2:42 PM CDT LABORATORIES Comment: Also a metabolite of MDMA and/or MDEA Ephedrines Not Detected Cutoff: 100 08/02/2020 2:42 [facility] ng/mL PM CDT LABORATORIES Psuedoephederine Not Detected Cutoff: 100 08/02/2020 2:42 [facility] ng/mL PM [facility]T [facility] Comment: Sudafed Phentermine Not Detected Cutoff: 100 08/02/2020 2:42 PM [facility] ng/mL CDT [facility] Comment: Adipex-P, Lomaira, Qsymia Phencyclicine (PCP) Not Detected Cutoff: 20 08/02/2020 2:42 [facility] ng/mL PM CDT LABORATORIES Methylphenidate Not Detected Cutoff: 20 08/02/2020 2:42 [facility] ng/mL PM CDT LABORATORIES Comment: Ritalin, Concerta Ritalinic Acid Not Detected Cutoff: 100 08/02/2020 2:42 [facility] ng/mL CDT [facility] Comment: Metabolite of methylphenidate Stimulant Interpretation - 08/02/2020 2:42 PM CDT [facility] Comment: No stimulants were detected. The absence of expected drug(s) and/or drug metabolite(s) may in dicate non-compliance, altered pharmacokinetics , inappropriate timing of specimen collection relative t o drug administration, diluted/adulterated urin e, or limitations of testing. ADDITIONAL INFORMATIO N This test was developed and its performa nce characteristics determined by [facility] in a manner co nsistent with CLIA requirements. This test has not been madeleine ared or approved by the U.S. Food and Drug Administration. Test Performed by: [facility] [place] [id number] Aide: Benigno Selby M.D. Ph. D.; CLIA# [id number] List patient's Not provided 08/02/2020 2:42 PM CDT [facility] current medicaton LABORATORIES Comment: ADDITIONAL INFORMATIO N Accuracy and completeness of declared me dications on reports solely dependent on information submitted by client. Specimen Anatomical Collection Method Collection Time Receive d Time (Source) Location / / Volume Laterality Urine 07/31/2020 1:25 PM 1:26 CDT PM CDT Melissa Coronado DNP, URBAN FORESTER, DOGGER LAB URINE ORDERABLES Performing Organization Address City/State/ZIP Code Phon e Number [facility] see result attachment for specific address documented in this encounter Visit Diagnoses Diagnosis Opioid use disorder, moderate, in early remission, on maintenance therapy (HCC) documented in this encounter Care Teams Class A Regional Drivers Relationship Specialty Start Date End Date None, Pcp PCP - General Debt Counselor 02/06/[address] [place] [phone] documented as of this encounter
--- OUTSIDE RECORDS SUMMARY | 2022-01-14 01:44 | XMS_ITS | Encounter Summary ---
:[address] [facility] Address [address] [place] [address] Care Team Providers Name Role Phone None, Pcp Primary Care Provider Unavailable Encounter Details Date Type Department Care Team Description 08/29/2020 Lab SE Lab Opioid use disorder, moderat e, [address] in early remission, [place] [address] maintenance therapy ([facility]) [phone] Social History Tobacco Use Types Packs/Day Years [...] How often do you attend religion or catholic Not asked 03/21/2020 services? Do you belong to any clubs or organizations such as Not askbreanne schilling 03/21/2020 religion groups, unions, fraternal or [...] housing General Yes Melissa Coronado, DNP, SUPERVISOR FINISH END, REGISTERED NURSE HH CASE MANAGER Note: Formatting of this note might be d ifferent from the original. - has applied for several housing lists; waiting to hear back, wants to be near family Quit using tobacco (cigarettes, Tobacco Use No Melissa Coronado, DNP, SUPERVISOR FINISH END, smokeless, etc) REGISTERED NURSE HH CASE MANAGER Note: Formatting of this note might be d ifferent from the original. Will use nicorette gum in case of breakt hrough craving. Will find some candy or suckers to use d uring group to occupy her hands/oral fixation documented as of this encounter Procedures Procedure Name Priority Date/Time Associated Diagnosis Comme nts CONTROLLED Routine 08/29/2020 10:40 Opioid use disorder, Res ults for this SUBSTANCES AM CDT moderate, in early procedure are in MONITORING PANEL, remission, on the [facility] URINE maintenance therapy section. (HCC) documented in this encounter Results (ABNORMAL) Controlled Substance Monitoring Panel, Urine (08/29/2020 10:40 AM CDT) Component Value Ref Test Analysis Performed At [facility] Range Method Time Signature Barbiturates Negative Cutoff: 09/02/2020 [facility] 200 1:39 PM CDT LABORATORIES ng/mL Cocaine Negative Cutoff: 09/02/2020 [facility] 150 1:39 PM CDT LABORATORIES ng/mL Tetrahydrocannabinol Negative Cutoff: 09/02/2020 [facility] 50 ng/mL 1:39 PM CDT LABORATORIES Comment: ADDITIONAL INFORMATIO N This report is intended for use in clini wilfred monitoring or management of patients. ??It is not inte nded for use in employment-related testing. Codeine Not Detected Cutoff: 25 ng/mL 09/02/2020 1:39 PM [facility] CDT LAB[facility] Comment: Tylenol 3 Jwywklf-4-cpvb-glucuronide Not Detected Cutoff: 100 09/03/19 21 [facility] ng/mL 1:39 PM CDT LABORATORIES Comment: Metabolite of codeine Morphine Urine Not Detected Cutoff: 09/02/2020 1:39 PM [facility] ng/mL CDT LABORATORIES Comment: Emilia Perry, MS Contin; Also a minor metabolite (10%) of codeine and can be seen in low concentra tions (<2,000 ng/mL) with poppy seed ingestion. Newaulhg-9-mfvz-glucuronide Not Detected Cutoff: 100 021 [facility] ng/mL 1:39 PM CDT LABORATORIES Comment: Metabolite of morphine 6-monoacetylmorphine Not Detected Cutoff: 09/02/2020 1:39 [facility] ng/mL PM CDT LABORATORIES Comment: Metabolite of heroin Hydrocodone Not Detected Cutoff: 25 ng/mL 09/02/2020 1:39 PM [facility] CDT LABORATORIES Comment: Lortab, [place], Vicodin; Also a very [place] r metabolite of codeine and impurity (<1%) of oxycodone. Norhydrocodone Not Detected Cutoff: 09/02/2020 1:39 PM [facility] ng/mL CDT LAB[facility] Comment: Metabolite of hydrocodone Dihydrocodeine Not Detected Cutoff: 09/02/2020 1:39 PM [facility] ng/mL CDT LABORATORIES Comment: Metabolite of hydrocodone Hydromorphone Not Detected Cutoff: 25 ng/mL 09/02/2020 1:39 PM [facility] Comment: Dilaudid, Exalgo; Also a metabolite of h ydrocodone and a minor (<5%) metabolite of morphine. Iynbebucugxea-4-stus-glucuronide Not Cutoff: 021 [facility] Detected 100 ng/mL 1:39 PM CDT LABORATORIES Comment: Metabolite of hydromorphone Oxycodone Not Detected Cutoff: 25 ng/mL 09/02/2020 1:39 PM [facility] Comment: Endocet, Percocet, Oxycontin Noroxycodone Not Detected Cutoff: 25 ng/mL 09/02/2020 1:39 P [facility] CDT LABORATORIES Comment: Metabolite of oxycodone Oxymorphone Not Detected Cutoff: 25 ng/mL 09/02/2020 1:39 PM [facility] CDT LABORATORIES Comment: Numorphan, Opana; Also a metabolite of o xycodone. Ihjmsnfdfiz-7-drpg-glucuronide Not Detected Cutoff: 2020 [facility] 100 ng/mL 1:39 PM CDT LABORATORIES Comment: Metabolite of oxymorphone and/or naloxon e (nornaloxone) Noroxymorphone Not Detected Cutoff: 25 09/02/2020 1:39 PM [facility] ng/mL CDT LABORATORIES Comment: Metabolite of oxymorphone and/or naloxon e (nornaloxone) Fentanyl Not Detected Cutoff: 2 ng/mL 09/02/2020 1:39 PM [facility] CDT LABORATORIES Comment: Actiq, Duragesic, Fentora Norfentanyl Not Detected Cutoff: 2 ng/mL 09/02/2020 1:39 PM [facility] CDT LAB[facility]IES Comment: Metabolite of fentanyl Meperidine Not Detected Cutoff: 25 ng/mL 09/02/2020 1:39 PM [facility] CDT LAB[facility]IES Comment: Demerol Normeperidine Not Detected Cutoff: 25 ng/mL 09/02/2020 1:39 PM [facility] CDT LABORATORIES Comment: Metabolite of meperidine Naloxone Not Detected Cutoff: 25 ng/mL 09/02/2020 1:39 PM [facility] CDT LABORATORIES Comment: Narcan Tlgkqugw-7-thqy-glucuronide Not Detected Cutoff: 100 021 [facility] ng/mL 1:39 PM CDT LABORATORIES Comment: Metabolite of naloxone Methadone Not Detected Cutoff: 25 ng/mL 09/02/2020 1:39 PM [facility] CDT LABORATORIES Comment: Dolophine EDDP Not Detected Cutoff: 25 ng/mL 09/02/2020 1:39 PM [facility] Comment: Metabolite of methadone Propoxyphene Not Detected Cutoff: 25 ng/mL 09/02/2020 1:39 P [facility] CDT LABORATORIES Comment: Darvon, Darvocet Norpropoxyphene Not Detected Cutoff: 25 09/02/2020 1:39 PM [facility] ng/mL CDT LAB[facility]IES Comment: Metabolite of propoxyphene Tramadol Not Detected Cutoff: 25 ng/mL 09/02/2020 1:39 PM [facility] CDT LABORATORIES Comment: Tradol, Ultram, Ultracet O-desmethyltramadol Not Detected Cutoff: 25 09/02/2020 1:39 [facility] ng/mL PM CDT LABORATORIES Comment: Metabolite of tramadol Tapentadol Not Detected Cutoff: 25 ng/mL 09/02/2020 1:39 PM [facility] CDT LABORATORIES Comment: Nucynta N-desmethyltapentadol Not Detected Cutoff: 50 09/02/2020 1:3 9 [facility] ng/mL CDT LABORATORIES Comment: Metabolite of tapentadol Zovvwcewnm-uxgj-psksgmtbati Not Detected Cutoff: 100 09/02/ 021 [facility] ng/mL 1:39 PM CDT LABORATORIES Comment: Metabolite of tapentadol Buprenorphine Not Detected Cutoff: 5 ng/mL 09/02/2020 1:39 P [facility] CDT LABORATORIES Comment: Buprenex, Suboxone Norbuprenorphine Present (A) Cutoff: 5 ng/mL 09/02/2020 1:39 PM [facility] CDT LABORATORIES Comment: Metabolite of buprenorphine Norbuprenorphine Present (A) Cutoff: 20 09/02/2020 1:39 [facility] glucuronide ng/mL PM CDT LABORATORIES Comment: Metabolite of buprenorphine Opioid Interpretation - 09/02/2020 1:39 PM CDT [facility] Comment: Test detected the presence of norbupreno rphine and norbuprenorphine glucuronide which are m etabolites of buprenorphine. Suspect use of buprenorph ine within the past three days. ADDITIONAL INFORMATIO N This test was developed and its performa nce characteristics determined by [facility] in a manner co nsistent with CLIA requirements. This test has not been madeleine ared or approved by the U.S. Food and Drug Administration. Creatinine, Urine 78.7 mg/dL 09/02/2020 1:39 [facility] CDT LABORATORIES Specific [place], 1.015 09/02/2020 1:39 [facility] Urine PM CDT LABORATORIES pH, Urine 6.6 09/02/2020 1:39 [facility] PM CDT LABORATORIES Oxidants Negative Cutoff: 200 09/02/2020 1:39 [facility] mg/L PM CDT LABORATORIES Comment Normal 09/02/2020 1:39 [facility] PM CDT LABORATORIES Alprazolam Not Detected Cutoff: 10 09/02/2020 1:39 [facility] ng/mL PM CDT LABORATORIES Comment: Xanax Alpha-Hydroxyalprazolam UR Not Detected Cutoff: [facility] ng/mL 1:39 PM CDT LABORATORIES Comment: Metabolite of Alprazolam Alpha-Hydroxyalprazolam Not Detected Cutoff: 50 09/02/2020 [facility] Glucuronide ng/mL 1:39 PM CDT LABORATORIES Comment: Metabolite of Alprazolam Chlordiazepoxide Not Detected Cutoff: 09/02/2020 1:39 [facility] ng/mL PM CDT LABORATORIES Comment: Librium Clobazam Not Detected Cutoff: 10 ng/mL 09/02/2020 1:39 PM [facility] CDT [facility] Comment: Frisium, Onfi N-Desmethylclobazam Not Detected Cutoff: 200 09/02/2020 1:39 [facility] ng/mL PM CDT LABORATORIES Comment: Metabolite of Clobazam Clonazepam Lvl Not Detected Cutoff: 09/02/2020 1:39 PM [facility] ng/mL [facility] Comment: Klonopin, Rivotril 7-Aminoclonazepam Not Detected Cutoff: 09/02/2020 1:39 [facility] ng/mL PM CDT [facility] Comment: Metabolite of Clonazepam Diazepam UR Not Detected Cutoff: 09/02/2020 1:39 PM [facility] Quant ng/mL CDT LABORATORIES Comment: Valium Nordiazepam Not Detected Cutoff: 10 ng/mL 09/02/2020 1:39 PM [facility] CDT LABORATORIES Comment: Metabolite of Chlordiazepoxide, Diazepam , or Prazepam. Flunitrazepam Not Detected Cutoff: 10 ng/mL 09/02/2020 1:39 PM [facility] CDT LABORATORIES Comment: Rohypnol 7-Aminoflunitrazepam Not Detected Cutoff: 10 09/02/2020 1:39 [facility] ng/mL PM CDT LAB[facility] Comment: Metabolite of Flunitrazepam Flurazepam Not Detected Cutoff: 10 ng/mL 09/02/2020 1:39 PM [facility] CDT LABOR[facility]IES Comment: Dalmane 2- hydroxy ethyl Not Detected Cutoff: 10 09/02/2020 1:39 [facility] flurazepam ng/mL PM CDT LABORATORIES Comment: Metabolite of Flurazepam Lorazepam Not Detected Cutoff: 10 ng/mL 09/02/2020 1:39 PM [facility] CDT LAB[facility] Comment: Ativan Lorazepam Not Detected Cutoff: 50 09/02/2020 1:39 [facility] Glucuronide ng/mL PM CDT LABORATORIES Comment: Metabolite of Lorazepam Midazolam Not Detected Cutoff: 10 ng/mL 09/02/2020 1:39 PM [facility] CDT LAB[facility] Comment: Versed Alpha-Hydroxy Not Detected Cutoff: 10 09/02/2020 1:39 [facility] Midazolam ng/mL PM CDT LABORATORIES Comment: Metabolite of Midazolam Oxazepam Not Detected Cutoff: 10 ng/mL 09/02/2020 1:39 PM [facility] CDT LABOR[facility] Comment: Serax; Also a metabolite of Chlordiazepo xide, Diazepam, or Temazepam. Oxazepam Not Detected Cutoff: 50 09/02/2020 1:39 [facility] Glucuronide ng/mL PM CDT LABORATORIES Comment: Metabolite of Oxazepam Prazepam, urine Not Detected Cutoff: 10 09/02/2020 1:39 PM [facility] ng/mL CDT LABORATORIES Comment: Centrax Temazepam Not Detected Cutoff: 10 ng/mL 09/02/2020 1:39 PM [facility] CDT LABORATORIES Comment: Restoril; Also a metabolite of Diazepam. Temazepam Not Detected Cutoff: 50 09/02/2020 1:39 [facility] Glucuronide ng/mL PM CDT LABORATORIES Comment: Metabolite of Temazepam Triazolam Not Detected Cutoff: 10 ng/mL 09/02/2020 1:39 PM [facility] CDT LAB[facility] Comment: Halcion Alpha-Hydroxy Not Detected Cutoff: 10 09/02/2020 1:39 [facility] Triazolam ng/mL PM CDT LABORATORIES Comment: Metabolite of Triazolam Zolpidem Not Detected Cutoff: 10 ng/mL 09/02/2020 1:39 PM [facility] Comment: Ambgunner Zolpidem Not Detected Cutoff: 10 09/02/2020 1:39 [facility] Ravknp-2-Shmasqbolm acid ng/mL PM CDT LABOR ATORIES Comment: Metabolite of Zolpidem Benzodiazepine, Interp - 09/02/2020 1:39 P M CDT [facility] Comment: No benzodiazepines were detected. The ab sence of expected drug(s) and/or drug metabolite(s) may in dicate non-compliance, altered pharmacokinetics , inappropriate timing of specimen collection relative t o drug administration, diluted/adulterated urin e, or limitations of testing. ADDITIONAL INFORMATIO N This test was developed and its performa nce characteristics determined by [facility] in a manner co nsistent with CLIA requirements. This test has not been madeleine ared or approved by the U.S. Food and Drug Administration. Methamphetamine Not Detected Cutoff: 100 09/02/2020 1:39 PM [facility] ng/mL CDT LABORATORIES Comment: Desoxyn Amphetamines Not Detected Cutoff: 100 09/02/2020 1:39 PM [facility] ng/mL [facility]T [facility] Comment: Dyanavel XR, Adzenys ER, Adderall, Vyvan se; Also a metabolite of methamphetamine 3,4 Not Cutoff: 09/02/2020 [facility] Methylenedioxymethamphetamine Detected 100 ng/mL 1:39 PM CD T LABORATORIES 3,4 Not Cutoff: 09/02/2020 [facility] Lijeatcvwvnidd-F-etqngizemdzjeah Detected 100 ng/mL 1:39 PM CDT LABORATORIES e (MDEA) 3,4 Methylenedioxyamphetamine Not Cutoff: 09/02/2020 [facility] Detected 100 ng/mL 1:39 PM CDT LABORATORIES Comment: Also a metabolite of MDMA and/or MDEA Ephedrines Not Detected Cutoff: 100 09/02/2020 1:39 [facility] ng/mL PM CDT LABORATORIES Psuedoephederine Not Detected Cutoff: 100 09/02/2020 1:39 [facility] ng/mL PM CDT LABORATORIES Comment: Sudafed Phentermine Not Detected Cutoff: 100 09/02/2020 1:39 PM [facility] ng/mL CDT LAB[facility]IES Comment: Adipex-P, Lomaira, Qsymia Phencyclicine (PCP) Not Detected Cutoff: 20 09/02/2020 1:39 [facility] ng/mL PM CDT LABORATORIES Methylphenidate Not Detected Cutoff: 20 09/02/2020 1:39 [facility] ng/mL PM CDT LABORATORIES Comment: Ritalin, Concerta Ritalinic Acid Not Detected Cutoff: 100 09/02/2020 1:39 PM [facility] ng/mL CDT [facility] Comment: Metabolite of methylphenidate Stimulant Interpretation - 09/02/2020 1:39 PM CDT [facility] Comment: No stimulants were detected. The absence of expected drug(s) and/or drug metabolite(s) may in dicate non-compliance, altered pharmacokinetics , inappropriate timing of specimen collection relative t o drug administration, diluted/adulterated urin e, or limitations of testing. ADDITIONAL INFORMATIO N This test was developed and its performa nce characteristics determined by [facility] in a manner co nsistent with CLIA requirements. This test has not been madeleine ared or approved by the U.S. Food and Drug Administration. Test Performed by: [place] [address] Recruiting Coordinator: Benigno Selby M.D. Ph. D.; CLIA# [id number] List patient's Not provided 09/02/2020 1:39 PM CDT [facility] LABORATORIES Comment: ADDITIONAL INFORMATIO N Accuracy and completeness of declared me dications on reports solely dependent on information submitted by client. Specimen Anatomical Collection Method Collection Time Receive d Time (Source) Location / / Volume Laterality Urine 08/29/2020 10:40 08/29/2020 1:14 AM CDT PM CDT Melissa K. Ivonne DNP, SUPERVISOR FINISH END, REGISTERED NURSE HH CASE MANAGER LAB URINE ORDERABLES Performing Organization Address City/State/ZIP Code Phon e Number [facility] see result attachment for specific address documented in this encounter Visit Diagnoses Diagnosis Opioid use disorder, moderate, in early remission, on maintenance therapy (HCC) documented in this encounter Care Teams Disaster Recovery Specialist Relationship Specialty Start Date End Date None, Pcp PCP - General Pricing Specialist 02/06/19 [address] [place] [id number] documented as of this encounter
--- OUTSIDE RECORDS SUMMARY | 2022-01-14 01:44 | XMS_ITS | Encounter Summary ---
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 Do [...] Sign Reading Time Taken Comments Blood Pressure 130/83 08/12/2020 3:10 PM CDT Pulse - - Temperature - - Respiratory Rate - - Oxygen Saturation - - Inhaled Oxygen Concentration - - Weight 92.9 kg (204 lb 14.4 oz) 08/12/2020 3:10 PM CDT Height - - Body Mass Index 34.56 04/10/2020 3:24 PM ASSISTANT EDITOR documented in this encounter Patient Instructions Patient InstructionsElizabeth Blum LPN - 08/12/2020 3:00 PM CDT OB32 Who to Call Please contact the OBGYN department at [phone] if you experience vaginal bleeding, vaginal spotting, abnormal vaginal discharge, or have any questions/concerns. OB Concerns [facility] Center: [phone]. Due to COVID19 restrictions, you MUST call before coming to the Center. CALL - When you have painful, regular contractions every 5 minutes for at least 1 hour without stopping. You may have been given instructions on when you should call based on how often you are having contractions. In general, we are looking for contractions that are every 3-4 minutes. They will usually last 45-60 seconds. CALL [...] hour. CALL - If you are having severe, continuous abdominal pain. Kick Counts You should begin [...] hour, please contact the OBGYN clinic at [phone] during business hours (Tuesday-Tuesday, 8-5pm) or the Center at [phone] after business hours. Classes Registration for most of the small-group Classes is now open again! [place] online at [email or web address] : Classes & Events [at the top] : and Childbirth. In-person Center tours are on hold due to the pandemic. Here is a link to a short YouTube video tour of our beautiful Center: https://www.ByRead.com/watch?v=zpgIG5l5yMO [facility] has a brand new digital education platform just for you! [employer] offers anytime, anywhere, parent education designed to give you convenient access to valuable, research-based information on care, labor and , care, , and care, including lots of videos! [employer] can also provide you with unique tools like a kick cou nter, contraction timer, personal journal, and more. How to get access to [employer] [place] for the program by going to: [email or web address] You will then receive an email from [email or web address] providing you with your login and password information. Please note: The email will come from [facility] and not [facility]. If you do not receive a confirmation, be sure to check your email's Track folder. After you have created your account, you can access [employer] in 2 ways: Download the free mobile talia from your talia store. Search ???[employer]?? or Login on the [email or web address] website: [email or web address]. COVID-19 To keep you and your family safe, we have the following recommendations: ??? Wear a mask. As of November 03, 2019, everyone in [place] must wear a mask in stores and other indoor gathering places. Wearing a mask slows the spread of the virus. Wearing a mask also helps people who may have the virus and don't know it from giving it to others. ??? Wash your hands often with soap and water for at least 20 seconds. If you can't use soap and water, please use alcohol-based hand board stacker, like Purell. ??? Cough into your elbow, NOT your hands. ??? Avoid touching your eyes, nose, and mouth. ??? Try to avoid being around people who are sick. ??? If you are sick, please stay home from school, work, and other activities. ??? If you are sick or have had contact with a person who has COVID-19: Call the MAKE UP OPERATOR Nurse Triage line at [phone] during normal clinic hours. After clinic hours, use the [facility] Emergency Room if you are ill and need care. ??? We encourage social distancing: Do NOT have get-togethers with friends or family. Do NOT go out into public areas unless necessary. If you DO go out, obey the location's social distancing rules. For example, if you have to go shopping, stay away from others, wear a mask, and wash your hands often. NEW VISITOR POLICY for research laboratory technician patients as of June 18, 2020 - TWO adults may be with you for your stay on Labor and Delivery. These two people MUST be the SAME two people all through your stay. The names of these two people will be given to Center security so that they can be checked in and out by them. - A Certified Rug Inspector Helper may also be with you during your labor and delivery on the Center, howeverthey must leave after the delivery. - After you deliver, ONE person may stay with you overnight on the Center after visiting hoursare over. Your second person is welcome to return the next day when visiting hours begin again. - TWO people may come with you for your clinic appointments; ONE adult for your ???OB?? or anatomy ultrasound at around 20 weeks of . No children under 12 years old permitted at clinic visits. - Your baby can come with you to appointments in the clinic with the [] consultants. - The parent or guardian of a young person less than 18 years old who is coming for an appointment in the clinic may come with them, as well as one other person. No children under 12 years old permitted. - Up to TWO adults may come with you for one-to-one classes. - If you are having surgery, our staff will let you know when your support people can be with you that day. Instructions for your Clinic Visits: - If you have a fever, cough, body aches, a hard time catching your breath, or have been around someone who has COVID-19: o DO NOT COME to the clinic until you call, even if you have an appointment. o Call us first at [phone]. - Masks must be worn while inside the [facility]. - TWO people may come with you for your clinic appointments; ONE adult for your ???OB?? or anatomy ultrasound at around 20 weeks of . No children under 12 years old permitted at clinic visits. - Your baby can come with you to appointments in the clinic with the [] consultants. - The parent or guardian of a young person less than 18 years old who is coming for an appointment in the clinic may come with them, as well as one other person. No children under 12 years old permitted. Infusion Therapy Instructions due to COVID-19: NO support person allowed to be with you. Instructions for your Center (Labor and Delivery) Care: - DO NOT come to the Center without calling us first - [phone]. - Come in the [facility] doors, like you do for appointments. DO NOT come into the building through the ER. - TWO adults may be with you for your stay on Labor and Delivery. These two people MUST be the same TWO people all through your stay. The names of these two people will be given to Center security so that they can be checked in and out by them. - A Certified Rug Inspector Helper may also be with you during your labor and delivery on the Center, howeverthey must leave after the delivery. - After you deliver, ONE person may stay with you overnight on the Center after visiting hoursare over. Your second person is welcome to return the next day when visiting hours begin again. - Both you and the people who come with you are required to wear a face mask when you come to the hospital. It is a requirement to wear a mask outside of your Center room. All of the people in your room are required to wear a mask in your room whenever staff are present. - BRING everything with you when you come in, including: Your car seat. [place] for meals for the people who come with you, and for other needs. Personal items. Your inhaler, like Albuterol/Ventolin/Proventil, if you use one for asthma or allergies. Looking for more information about COVID-19 in and ? https://www.acog.org/patient-resources/faqs//mpctqcvixpg-bnjywwiwi-woz- Looking for information specifically on the COVID vaccine in ? [facility] YouTRoyalCactus Channel https://Walltik.be/XC-bxarLQek The CDC https://www.cdc.gov/coronavirus/2019-ncov/vaccines/recommendations/.htm l The Society for Maternal Medicine https://www.highriskpregnancyinfo.org/covid-19 documented in this encounter Progress Notes Zainab Rm MD - 08/12/2020 3:00 PM CDT 32w3d Feeling more anxiety today. Declines meds. Not terrible. Requesting UDS, ordered. Plans to transfer to [place] at 36 weeks, visits already set up. No other concerns, good movement. RTC 2 weeks Zainab Rm MD documented in this encounter Plan of Treatment Not on filedocumented as of this encounter Goals Goal Patient Goal Associated Recent Patient-Stated? Author Type Problems Progress secure housing General Yes Melissa Coronado, DNP, QUALITY LIAISON, COBOL APPLICATION DEVELOPER Note: Formatting of this note might be d ifferent from the original. - has applied for several housing lists; waiting to hear back, wants to be near family Quit using tobacco (cigarettes, Tobacco Use No Melissa Coronado, DNP, QUALITY LIAISON, smokeless, etc) COBOL APPLICATION DEVELOPER Note: Formatting of this note might be d ifferent from the original. Will use nicorette gum in case of breakt hrough craving. Will find some candy or suckers to use d uring group to occupy her hands/oral fixation documented as of this encounter Results (ABNORMAL) Rapid drug screen, urine (08/12/2020 3:32 PM CDT) athologist Signature Rapid Urine ----- 08/12/2020 [facility] Drug Screen 3:32 PM CDT CENTER LABOR[facility]ORY Comment: This is a screening test. ??Positive res ults should be considered presumptive and [facility]. This test is not for legal purposes - on medical. Tetrahydrocannabinol NOT DETECTED Not Detected 08/12/2020 3: 57 [facility] CDT [facility] Phencyclidine, Mec NOT DETECTED Not Detected 08/12/2020 3:57 [facility] Cocaine NOT DETECTED Not Detected 08/12/2020 3:57 [facility] Methamphetamine NOT DETECTED Not Detected 08/12/2020 3:57 [facility]ENTER [facility] Opiates NOT DETECTED Not Detected 08/12/2020 3:57 [facility] Amphetamines NOT DETECTED Not Detected 08/12/2020 3:57 [facility] Benzodiazepines NOT DETECTED Not Detected 08/12/2020 [facility] TCA, Urine NOT DETECTED Not Detected 08/12/2020 3:[facility] Methadone NOT DETECTED Not Detected 08/12/2020 3:57 [facility] Barbiturates NOT DETECTED Not Detected 08/12/2020 [facility] Oxycodone NOT DETECTED Not Detected 08/12/2020 3:57 [facility] Propoxyphene NOT DETECTED Not Detected 08/12/2020 [facility] Buprenorphine DETECTED (A) Not Detected 08/12/2020 3:[facility] Comment: Sent to [facility] for GC/MS confirmation. Detectable Levels ----- 08/12/2020 3:32 PM T [facility] Comment: Amphetamines ?500 ng/ mL Barbiturates [...] Location / / Volume Laterality Urine (Urine, 08/12/2020 3:32 PM 08/13/19 3:37 Clean Catch) CDT PM CDT Zainab Rm MD LAB URINE ORDERABLES Performing Organization Address City/State/ZIP Code Phon e Number [facility] [address] [place] [address] documented in this encounter Visit Diagnoses Diagnosis Supervision of high risk , ante - Primary 32 weeks gestation of Family history of congenital anomaly of cardiovascular system Weight gain Other symptoms concerning nutrition, met abolism, and development Opioid use disorder, moderate, in early remission, on maintenance therapy (HCC) documented in this encounter Care Teams Atmospheric Technician Relationship Specialty Start Date End Date None, Pcp PCP - General Packing Machine Feeder 02/06/[address] [place] [address] documented as of this encounter
--- OUTSIDE RECORDS SUMMARY | 2022-01-14 01:44 | XMS_ITS | Encounter Summary ---
:1990 Author Organization [facility] Address [address] [place] [address] Care Team Providers Name Role Phone None, Pcp Primary Care Provider Unavailable Reason for Visit Reason Comments Consult Perinatology Encounter Details Date Type Department Care Team Description 07/29/2020 Consult [facility] Molly Shea MD Combined drug dependence, continuous abu se (HCC) (Primary Dx); Perinatology [address] Migraine without aura and wi thout status migrainosus, not intractable; [address] Nicotine dependence, uncomplicated, unsp ecified nicotine product type; [place] [address] [place] Opioid use disorder, moderat e, in early remission, on maintenance therapy ([facility]); [phone] [id number] Family history of congenital anomaly of cardiovascular system; [phone] Anxiety; (Work) Alteration in parenting Social History Tobacco Use Types Packs/Day Years [...] How often do you attend hindu or catholic Not asked 03/21/2020 services? Do [...] place to sleep or slept in a snf (including now)? Education Answer Date Recorded What is the highest level of school you have High school gra dumohamud 03/21/2020 completed or the highest degree you have received? Sex Assigned at Date Recorded Not on file documented as of this encounter Last Filed Vital Signs Vital Sign Reading Time Taken Comments Blood Pressure 102/60 07/29/2020 3:18 PM CDT Pulse - - Temperature - - Respiratory Rate - - Oxygen Saturation - - Inhaled Oxygen Concentration - - Weight - - Height - - Body Mass Index - - documented in this encounter Patient Instructions Patient InstructionsPinky Edmond RN - 07/29/2020 3:00 PM CDT OB30 Who to Call Please contact the OBGYN department at [phone] if you experience vaginal bleeding, vaginal spotting, abnormal vaginal discharge, or have any questions/concerns. OB Concerns [facility] Center: [phone]. Due to COVID19 restrictions, you MUST call [...] hour, please contact the OBGYN clinic at [phone] during business hours (Tuesday-Tuesday, 8-5pm) or the Center at [phone] after business hours. Classes Registration for most of the small-group Classes is now open again! [place] online at [email or web address] : Classes & Events [at the top] : and Childbirth. In-person Center tours are on hold due to the pandemic. Here is a link to a short YouTube video tour of our beautiful Center: [email or web address].youPureSenseube.com/watch?[email or web address]=[email or web address] [facility] has a brand new digital education platform just for you! Indexing offers anytime, anywhere, parent education designed to give you convenient access to valuable, research-based information on care, labor and , care, , and care, including lots of videos! Indexing can also provide you with unique tools like a kick cou nter, contraction timer, personal journal, and more. How to get access to Indexing: [place] for the program by going to: [email or web address] You will then receive an email from [email or web address] providing you with your login and password information. Please note: The email will come from [facility] and not [facility]. If you do not receive a confirmation, be sure to check your email's Public Good Software folder. After you have created your account, you can access Indexing in 2 ways: Download the free mobile talia from your talia store. Search ???Indexing.?? or Login on the Indexing website: [email or web address]. COVID-19 To keep you and your family safe, we have the following recommendations: ??? Wear a mask. As of November 03, 2019, everyone in [place] must wear a mask in stores and [...] soap and water, please use alcohol-based hand tents assembler, like Purell. ??? Cough into your elbow, NOT your hands. ??? Avoid touching your eyes, nose, and mouth. ??? Try to avoid being around people who are sick. ??? If you are sick, please stay home from school, work, and other activities. ??? If you are sick or have had contact with a person who has COVID-19: Call the DONOR SPECIALIST Nurse Triage line at [phone] during normal clinic hours. After clinic hours, use the [facility] Emergency Room if you are ill and [...] your hands often. NEW VISITOR POLICY for senior sous chef patients as of June 18, 2020 - TWO adults may be with you for your stay on Labor and Delivery. These two people MUST be the SAME two people all through your stay. The names of these two people will be given to Center security so that they can be checked in and out by them. - A Certified Appliance Adjuster may also be with you during your [...] an appointment. o Call us first at [phone]. - Masks must be worn while inside [...] the Center without calling us first - [phone]. - Come in the [facility] [...] and out by them. - A Certified Appliance Adjuster may also be with you during your [...] more information about COVID-19 in and ? https://www.acog.org/patient-resources/faqs//gbkqqxukebc-phrlgebxz-hgt- Looking for information specifically on the COVID vaccine in ? [facility] [employer] Channel https://eBooks in Motion.Event Park Pro/XC-bxarLQek The CDC https://www.cdc.gov/coronavirus/2019-ncov/vaccines/recommendations/.htm l The Society for Maternal Medicine https://www.highriskpregnancyinfo.org/covid-19 documented in this encounter Progress Notes Molly Shea MD - 07/29/2020 3:00 PM CDT Perinatology Consult Return Indication for consult Patient Active Problem List Diagnosis ??? Disorder of arteries and arterioles (HCC) ??? Anxiety ??? History of hepatitis C virus infection ??? Irritable bowel syndrome with constipation ??? Migraine headache ??? Mild intermittent asthma ??? Combined drug dependence, continuous abuse (HCC) ??? Nicotine dependence ??? Supervision of high risk , antepartum ??? Alteration in parenting ??? Opioid use disorder, moderate, in early remission, on maintenance therapy (HCC) ??? Weight gain ??? Family history of congenital anomaly of cardiovascular system HPI 30 y.o. G 3 P 1011 at 30w3d with best Estimated Date of Delivery: 10/04/20 by 8- week ultrasound Patient returns for growth ultrasound. In the meantime she has had her echo and that was negative. She has also met with MFM at [facility] and plans to transfer care there at 36 weeks. Prior child with congenital heart defect ASD/PFO no surgery echo this negative Drug dependence, opioid use disorder in early remission On maintenance therapy HPI: Longstanding drug use since age 20. Drugs of choice- methamphetamines heroin and cocaine. Positive history of IV drug use. last use February 2020. Now on buprenorphine/Subutex 20 mg daily, prescribed by addiction physician at [facility]. In treatment at [place] [facility] --> recent discharge to an outpatient rehab facility [facility] is happening in [place]. In intensive therapy 5 days a week. Father of the baby incarcerated/history of drug and alcohol use but plans to reunite under 1 roof. No involuntary termination of parental rights. Plan: She will continue care here until 36 weeks and then transferred to [place] since baby may need NICU care. 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 IBS symptoms Constipation predominant and dependent upon Dulcolax suppositories for bowel movements since childhood; not been seen yet by GI medicine due to Covid --> still terrible and laxative dependent and does not think going off Subutex will make a difference since lifelong Hepatitis C infection Prior infection with no ongoing viral load in 2018 Routine PNC Rh positive Glucola - done Labs - done Tdap - done GBS PPBC Review of Systems: No bleeding, no pain, no leakage of fluid + FM Current Outpatient Medications on File Prior to Visit Medication Sig Dispense Refill ??? acetaminophen (TYLENOL) 500 MG tablet Take 1,000 mg by mouth every 6 (six) hours if needed for mild pain ??? albuterol HFA (Ventolin HFA) 108 (90 Base) MCG/ACT inhaler Inhale 2 puffs every 4 (four) hours if needed for wheezing or shortness of breath 18 g 1 ??? amoxicillin (AMOXIL) 500 MG capsule TAKE ONE CAPSULE BY MOUTH EVERY 8 HOURS ??? aspirin EC 81 MG EC tablet Take 81 mg by mouth daily ??? bisacodyl (DULCOLAX) 10 MG suppository INSERT ONE SUPPOSITORY INTO THE RECTUM ONCE DAILY FOR 28 DAYS 28 suppository 0 ??? buprenorphine (SUBUTEX) 2 MG Take one tablet in the morning (with 8 mg tablet) and one tablet inthe evening (with 8 mg tablet). Total daily dose 20 mg. 56 tablet 0 ??? buprenorphine (SUBUTEX) 8 MG Take 1 tablet in the am (with 2 mg tablet) and 1 tablet in the pm (with 2 mg tablet). Total daily dose 20 mg. 56 tablet 0 ??? doxylamine (UNISON) 25 MG tablet Take 1 tablet (25 mg total) by mouth at night if needed for sleep Take 1 tablet at bedtime as needed for nausea. 30 tablet 3 ??? nicotine polacrilex (Nicorette) 4 MG gum Chew 1 each (4 mg total) if needed for smoking cessation 100 each 0 ??? omeprazole (PriLOSEC) [address] capsule Take 1 capsule (20 mg total) by mouth 1 (one) time each day Do not crush or chew. 90 capsule 3 ??? MV-Min-Fe Fum-FA-DHA ( 1) 30-0.975-200 MG capsule Take 1 tablet by mouth 1 (one) time each day 90 capsule 3 ??? Vit-Fe Fumarate-FA (KP MULTIVITAMINS PO) Take by mouth ??? pyridoxine (B-6) 50 MG tablet Take 50 mg by mouth 2 times daily No current facility-administered medications on file prior to visit. Allergies Sulfa antibiotics Blood pressure 102/60. Ultrasound: Single live intrauterine . 1414 g. 14th percentile. AC 24% Posterior placenta. Normal anatomy. Low lying plac RESOLVED Assessment: Intrauterine at 30w3d Problem List Items Addressed This Visit Nervous Migraine headache Combined drug dependence, continuous abuse (HCC) - Primary Nicotine dependence Other Anxiety Alteration in parenting Opioid use disorder, moderate, in early remission, on maintenance therapy (HCC) Family history of congenital anomaly of cardiovascular system Plan I reviewed with the patient that today's ultrasound shows normal and appropriate growth that matchesher stated HAZEL. We previously saw on ultrasound today a low-lying placenta, posterior. That has resolved. Medication assisted treatment of an opioid substance use disorder with an opioid agonist or antagonist has been shown to be more effective than abstinence based treatment for many patients. She returnstoday for a growth ultrasound which was normal. I recommended anesthesia consultation in the third trimester as pain control can be an issue. I am not sure this is the value however if she is NOT going to deliver here. I suggested she arrange for this at [place]. We reviewed abstinence syndrome. This occurs more often with opioid- containing medications.It is hard to predict how many days to weeks this might require hospitalization. We reviewed the limitations of hospitalization at [facility] and if the baby requires ongoing treatment it may require transfer to [facility]. She plans on transferring care at 36 weeks. She did have a consultation at [place] and they are aware of her transfer of care plan and she does have a follow up appointment already scheduled there. echo was within normal limits. She has laxative dependent constipation which is really unchanged in . It is overall very severe. Unfortunately when I suggested this might improve after she goes off of her Suboxone she states it has been a problem from even before her use. I recommended she pursue a GI evaluation after she delivers and she concurs. Other than that I think she is doing very well. She drives over an hour to come to these appointments and she has been compliant. She feels very tired. She does not have any other signs or symptoms that would suggest this is of a nefarious reason and I think it is just related fatigue. In summary I recommend the following. --Routine care through [facility] through 36 weeks --Transfer of care to [place] at 36 weeks --Patient is aware that all of her maintenance therapy will be prescribed through clinic other than [facility] OB clinic --Recommend anesthesia consult performed at [place] --Patient is aware that risk of abstinence --We will follow symptoms of constipation and suggest referral This visit lasted 35 minutes which was spent both preparing to see the patient by reviewing clinicalnotes and test results, reviewing ultrasound images, reviewing past medical history obtained by ancillary staff, and documenting the visit and [id number] with the patient reviewing the medical history for accuracy, counseling extensively about the issues addressed above, and managing the coordination of care. documented in this encounter Plan of Treatment Not on filedocumented as of this encounter Goals Goal Patient Goal Associated Recent Patient-Stated? Author Type Problems Progress secure housing General Yes Melissa Coronado, JUAN DIEGO, SWITCHING OPERATOR, SHIFT SUPERVISOR RN Note: Formatting of this note might be d ifferent from the original. - has applied for several housing lists; waiting to hear back, wants to be near family Quit using tobacco (cigarettes, Tobacco Use No Melissa Coronado, JUAN DIEGO, SWITCHING OPERATOR, smokeless, etc) SHIFT SUPERVISOR RN Note: Formatting of this note might be d ifferent from the original. Will use nicorette gum in case of breakt hrough craving. Will find some candy or suckers to use d uring group to occupy her hands/oral fixation documented as of this encounter Visit Diagnoses Diagnosis Combined drug dependence, continuous abu se (HCC) - Primary Migraine without aura and without status migrainosus, not intractable Nicotine dependence, uncomplicated, unsp ecified nicotine product type Opioid use disorder, moderate, in early remission, on maintenance therapy (HCC) Family history of congenital anomaly of cardiovascular system Anxiety Anxiety state, unspecified Alteration in parenting documented in this encounter Care Teams Housecalls Nurse Relationship Specialty Start Date End Date None, Pcp PCP - General Assistant Principal 02/06/19 [address] [place] [address] documented as of this encounter
--- OUTSIDE RECORDS SUMMARY | 2022-01-14 01:44 | XMS_ITS | Encounter Summary ---
:1990 Author Organization [facility] Address [address] [place] [address] Care Team Providers Name Role Phone None, Pcp Primary Care Provider Unavailable Reason for Visit Reason Comments Routine Visit Encounter Details Date Type Department Care Team Description 08/26/2020 Routine [facility] Women's [facility] Jeffrey Rapp history of congenital anomaly of cardiovascular system; [facility] MD Junior Weight gai n Milk Route Supervisor [address] [place], [place] [id number] Social History Tobacco Use Types Packs/Day Years [...] How often do you attend spiritism or jewish Not asked 03/21/2020 services? Do [...] Sign Reading Time Taken Comments Blood Pressure 128/79 08/26/2020 2:23 PM CDT Pulse - - Temperature - - Respiratory Rate - - Oxygen Saturation - - Inhaled Oxygen Concentration - - Weight 94.5 kg (208 lb 6.4 oz) 08/26/2020 2:23 PM CDT Height - - Body Mass Index 35.15 04/10/2020 3:24 PM STORAGE FACILITY HOUSEKEEPER documented in this encounter Patient Instructions Patient InstructionsFarheen Christian LPN - 08/26/2020 2:00 PM CDT OB34 Who to Call Please contact the OBGYN department at [phone] if you experience vaginal bleeding, vaginal spotting, abnormal vaginal discharge, or have any questions/concerns. OB Concerns [facility] Center: [phone]. Due to COVID19 restrictions, you MUST call [...] hour, please contact the OBGYN clinic at [phone] during business hours (Tuesday-Tuesday, 8-5pm) or the Center at [phone] after business hours. Classes Registration for most of the small-group Classes is now open again! [place] online at [employer] : Classes & Events [at the top] : and Childbirth. In-person Center tours are on hold due to the pandemic. Here is a link to a short YouTube video tour of our beautiful Center: [email or web address].[email or web address].com/watch?v=[email or web address] [facility] has a brand new digital education platform just for you! [employer] offers anytime, anywhere, parent education designed to give you convenient access to valuable, research-based information on care, labor and , care, , and care, including lots of videos! [employer] can also provide you with unique tools like a kick cou nter, contraction timer, personal journal, and more. How to get access to [employer]: [place] for the program by going to: [email or web address] You will then receive an email from [email or web address] providing you with your login and password information. Please note: The email will come from [facility] and not [facility]. If you do not receive a confirmation, be sure to check your email's Red Tricycle folder. After you have created your account, you can access [employer] in 2 ways: Download the free mobile talia from your talia store. Search ???[employer].?? or Login on the [employer] website: [email or web address]. COVID-19 To keep you and your family safe, we have the following recommendations: ??? Wear a mask. As of November 03, 2019, everyone in [place] must wear a mask in stores and [...] soap and water, please use alcohol-based hand enrollment management coordinator, like Purell. ??? Cough into your elbow, NOT your hands. ??? Avoid touching your eyes, nose, and mouth. ??? Try to avoid being around people who are sick. ??? If you are sick, please stay home from school, work, and other activities. ??? If you are sick or have had contact with a person who has COVID-19: Call the [facility] NURSE Nurse Triage line at [phone] during normal clinic hours. After clinic hours, use the [facility] Emergency Room if you are ill and [...] your hands often. NEW VISITOR POLICY for physiological chemist patients as of June 18, 2020 - TWO adults may be with you for your stay on Labor and Delivery. These two people MUST be the SAME two people all through your stay. The names of these two people will be given to [facility] security so that they can be checked in and out by them. - A Certified Supervisor Refractory Products may also be with you during your [...] an appointment. o Call us first at [phone]. - Masks must be worn while inside the [facility]. - TWO people may come with you [...] the Center without calling us first - [phone]. - Come in the [facility] doors, like you do for appointments. DO [...] and out by them. - A Certified Supervisor Refractory Products may also be with you during your [...] more information about COVID-19 in and ? https://www.acog.org/patient-resources/faqs//aurwfbvobit-jqscpetfk-iqf- Looking for information specifically on the COVID vaccine in ? [facility] YouTMay[employer] Channel https://Enel [email or web address].Continuent/XC-[email or web address] The CDC https://www.cdc.gov/coronavirus/2019-ncov/vaccines/recommendations/.htm l The Society for Maternal Medicine https://www.highriskpregnancyinfo.org/covid-19 documented in this encounter Progress Notes Jeffrey Rapp MD - 08/26/2020 2:00 PM CDT R: Expecting a boy and desires to have circ done Planning to breast feed. Switching to [facility] following this visit. Patient doesn't want to be from should baby require NICU documented in this encounter Plan of Treatment Not on filedocumented as of this encounter Goals Goal Patient Goal Associated Recent Patient-Stated? Author Type Problems Progress secure housing General Yes Melissa Coronado, JUAN DIEGO, SAFE AND VAULT MECHANIC, PULMONOLOGY TECHNICIAN Note: Formatting of this note might be d ifferent from the original. - has applied for several housing lists; waiting to hear back, wants to be near family Quit using tobacco (cigarettes, Tobacco Use No Melissa Coronado, JUAN DIEGO, SAFE AND VAULT MECHANIC, smokeless, etc) PULMONOLOGY TECHNICIAN Note: Formatting of this note might be [...] symptoms concerning nutrition, met abolism, and development documented in this encounter Care Teams Drapery Counselor Relationship Specialty Start Date End Date None, Pcp PCP - General Internal Medicine Physician 02/06/19 [address] [place] [address] documented as of this encounter
--- OUTSIDE RECORDS SUMMARY | 2022-01-14 01:44 | XMS_ITS | Encounter Summary ---
:1990 Author Organization [facility] Address [address] [place] [address] Care Team Providers Name Role Phone None, Pcp Primary Care Provider Unavailable Reason for Visit Reason Comments MAT Clinic Follow Up Encounter Details Date Type Department Care Team Description 07/31/2020 Office Visit SE MEDICATION Ivonne, Melissa Opioid use disorder, ASSISTED TREATMENT K., DNP, NETWORK ADMIN, MOLDING ASSOCIATE moderate, in early [address], [place] [address] [place] maintenance therapy [phone] (HCC) (Primary Dx) Social History Tobacco [...] 03/21/2020 relatives? How often do you attend zoroastrian or druze Not asked 03/21/2020 services? Do you belong to any clubs or organizations such as Argelia schilling 03/21/2020 zoroastrian groups, unions, fraternal or athletic groups, or [...] place to sleep or slept in a [place] [facility] [place] (including now)? Education Answer Date Recorded What is the highest level of school you have High school gra duate 03/21/2020 completed or the highest degree you have received? Sex Assigned at Date Recorded Not on file documented as of this encounter Last Filed Vital Signs Vital Sign Reading Time Taken Comments Blood Pressure 125/76 07/31/2020 1:30 PM CDT Pulse 84 07/31/2020 1:30 PM CDT Temperature 36.8 ??C (98.3 ??F) 07/31/2020 1:30 PM CDT Respiratory Rate - - Oxygen Saturation 98% 07/31/2020 1:30 PM CDT Inhaled Oxygen Concentration - - Weight - - Height - - Body Mass Index - - documented in this encounter Patient Instructions Patient InstructionsMelissa Coronado DNP, APRN, MIK - 07/31/2020 1:30 PM CDT Continue Subutex 8 mg and 2 mg twice daily. Follow up on 08/29/2020 with lab prior. Call MAT clinic at [phone] with any questions or concerns. documented in this encounter Progress Notes Melissa Coronado DNP, APRN, CNP - 07/31/2020 1:30 PM CDT MAT Clinic Follow Up Note Discussion Date: 07/31/2020 1:55 PM CHIEF COMPLAINT: Anjali presents for MAT Clinic follow up visit for management of opioid use disorder. Last visit: 07/03/2020 She has been taking Suboxone as prescribed: [...] follow-up. Stable with 10 mg twice daily Subutexand does not want to change until after delivery. No cravings, no use. Currently 30w5d with best Estimated Date of Delivery: 10/04/20 by 8-week ultrasound. She plans to transfer care to [facility] at 36 weeks due to possibly needing NICU care. The low lying posterior placenta has resolved. She is still vaping nicotine, but less so. She is no longer living at [facility], but is nowstaying with her grandparents, her sister, and her dad in [facility]. Her boyfriend was released to the [place] area and this is not a good environment for her or him, so she wants to stay near family. The couple will be attending counseling to try to make things work. FUNCTIONAL HEALTH Mood: Anxious Sleep: not discussed Appetite: normal, no concerns Employment status changes: not discussed Housing: currently living with grandparents Current life stressors: finding housing and working things out with her boyfriend Relationships: in relationship with child's father Libido: not discussed Daily Functioning/ADLs: no concerns [...] Subutex daily Plan made to deliver at [facility] for visits until 36 weeks, then transfer to [place] follow up visit already scheduled for 36w. Current Assessment & Plan It was a pleasure to visit with Ms. Hoang. She is maintained at stable dose of 20 mg Subutex daily. Patient is currently 30 weeks , experiencing heartburn, constipation, feeling baby movements regularly, has OB appointments every month at [facility] until transfer of care to [place] at 36 weeks. Concerns: nicotine dependence; emotional health, relationship with child's father Last UDS results: as expected Today's Plan: Continue Subutex 20 mg daily with follow-up in 4 weeks Relevant Medications buprenorphine (SUBUTEX) 8 MG buprenorphine (SUBUTEX) 2 MG Other Relevant Orders Controlled Substance Monitoring Panel, Urine Orders Placed This Encounter Procedures ??? Controlled Substance Monitoring Panel, Urine MAT Clinic Standing Status: Future Standing Expiration Date: 07/31/2021 PLAN: Continue with MAT Clinic Treatment Program and plan of care. Patient will follow up in 4 week(s) Patient Instructions Continue Subutex 8 mg and 2 mg twice daily. Follow up on 08/29/2020 with lab prior. Call MAT clinic at [phone] with any questions or concerns. Patient goals: Goals ??? Quit using tobacco (cigarettes, smokeless, etc) Will use nicorette gum in case of breakthrough craving. Will find some candy or suckers to use during group to occupy her hands/oral fixation ??? secure housing (pt-stated) - has applied for several housing lists; waiting to hear back, wants to be near family Melissa Coronado DNP, NICHOLAS, MIK documented in this encounter Miscellaneous Notes Assessment & Plan Note - Melissa Coronado DNP, APRN, CNP - 07/31/2020 1:02 PM CDTAssociated Problem(s): Opioid use disorder, moderate, in early remission, on maintenance therapy (HCC) It was a pleasure to visit with Ms. Hoang. She is maintained at stable dose of 20 mg Subutex daily. Patient is currently 30 weeks , experiencing heartburn, constipation, feeling baby movements regularly, has OB appointments every month at [facility] until transfer of care to [place] at 36 weeks. Concerns: nicotine dependence; emotional health, relationship with child's father Last UDS results: as expected Today's Plan: Continue Subutex 20 mg daily with follow-up in 4 weeks Electronically signed by Melissa Coronado, JUAN DIEGO, NETWORK ADMIN, MOLDING ASSOCIATE at 07/31/2020 1:04 PM CDT documented in this encounter Plan of Treatment Not on filedocumented as of this encounter Goals Goal Patient Goal Associated Recent Patient-Stated? Author Type Problems Progress secure housing General Yes Melissa Coronado, JUAN DIEGO, NETWORK ADMIN, MOLDING ASSOCIATE Note: Formatting of this note might be d ifferent from the original. - has applied for several housing lists; waiting to hear back, wants to be near family Quit using tobacco (cigarettes, Tobacco Use No Melissa Coronado, JUAN DIEGO, NETWORK ADMIN, smokeless, etc) MOLDING ASSOCIATE Note: Formatting of this note might be d ifferent from the original. Will use nicorette gum in case of breakt hrough craving. Will find some candy or suckers to use d uring group to occupy her hands/oral fixation documented as of this encounter Results (ABNORMAL) Controlled Substance Monitoring Panel, Urine (08/29/2020 10:40 AM CDT) Component Value Ref Test Analysis Performed At [facility] Range Method Time Signature Barbiturates Negative Cutoff: 09/02/2020 [facility] 200 1:39 PM CDT LABORATORIES ng/mL Cocaine Negative Cutoff: 09/02/2020 [facility] 150 1:39 PM CDT LABORATORIES ng/mL Tetrahydrocannabinol Negative Cutoff: 09/02/2020 [facility] 50 ng/mL 1:39 PM CDT LABORATORIES Comment: ADDITIONAL INFORMATIO N This report is intended for use in clini wilfred monitoring or management of patients. ??It is not inte nded for use in employment-related testing. Codeine Not Detected Cutoff: 25 ng/mL 09/02/2020 1:39 PM [facility] CDT LABORATORIES Comment: Tylenol 3 Fppljvw-0-vefx-glucuronide Not Detected Cutoff: 100 09/03/19 [facility] ng/mL 1:39 PM CDT LABORATORIES Comment: Metabolite of codeine Morphine Urine Not Detected Cutoff: 25 09/02/2020 1:39 PM [facility] ng/mL CDT LABORATORIES Comment: Emilia Perry, MS Contin; Also a minor metabolite (10%) of codeine and can be seen in low concentra tions (<2,000 ng/mL) with poppy seed ingestion. Gpshsbrx-2-ithx-glucuronide Not Detected Cutoff: 100 021 [facility] ng/mL 1:39 PM CDT LABORATORIES Comment: Metabolite of morphine 6-monoacetylmorphine Not Detected Cutoff: 25 09/02/2020 1:39 [facility] ng/mL PM CDT LABORATORIES Comment: Metabolite of heroin Hydrocodone Not Detected Cutoff: 25 ng/mL 09/02/2020 1:39 PM [facility] CDT LABORATORIES Comment: Lortab, [place], Vicodin; Also a very phoenix r metabolite of codeine and impurity (<1%) of oxycodone. Norhydrocodone Not Detected Cutoff: 09/02/2020 1:39 PM [facility] ng/mL CDT LABORATORIES Comment: Metabolite of hydrocodone Dihydrocodeine Not Detected Cutoff: 25 09/02/2020 1:39 PM [facility] ng/mL CDT LABORATORIES Comment: Metabolite of hydrocodone Hydromorphone Not Detected Cutoff: 25 ng/mL 09/02/2020 1:39 PM [facility] CDT LABORATORIES Comment: Dilaudid, Exalgo; Also a metabolite of h ydrocodone and a minor (<5%) metabolite of morphine. Juozwbezbqsst-0-amen-glucuronide Not Cutoff: 021 [facility] Detected 100 ng/mL 1:39 PM CDT LABORATORIES Comment: Metabolite of hydromorphone Oxycodone Not Detected Cutoff: 25 ng/mL 09/02/2020 1:39 PM [facility] CDT LABORATORIES Comment: Endocet, Percocet, Oxycontin Noroxycodone Not Detected Cutoff: 25 ng/mL 09/02/2020 1:39 P [facility] CDT LABORATORIES Comment: Metabolite of oxycodone Oxymorphone Not Detected Cutoff: 25 ng/mL 09/02/2020 1:39 PM [facility] CDT LABORATORIES Comment: Numorphan, Opana; Also a metabolite of o xycodone. Qnjrkmcddjj-5-sjyo-glucuronide Not Detected Cutoff: 2020 [facility] 100 ng/mL 1:39 PM CDT LABORATORIES Comment: Metabolite of oxymorphone and/or naloxon e (nornaloxone) Noroxymorphone Not Detected Cutoff: 25 09/02/2020 1:39 PM [facility] ng/mL CDT LABORATORIES Comment: Metabolite of oxymorphone and/or naloxon e (nornaloxone) Fentanyl Not Detected Cutoff: 2 ng/mL 09/02/2020 1:39 PM [facility] CDT LABORATORIES Comment: Actiq, Duragesic, Fentora Norfentanyl Not Detected Cutoff: 2 ng/mL 09/02/2020 1:39 PM [facility] CDT LABORATORIES Comment: Metabolite of fentanyl Meperidine Not Detected Cutoff: 25 ng/mL 09/02/2020 1:39 PM [facility] CDT [facility] Comment: Demerol Normeperidine Not Detected Cutoff: 25 ng/mL 09/02/2020 1:39 PM [facility] CDT LAB[facility]IES Comment: Metabolite of meperidine Naloxone Not Detected Cutoff: 25 ng/mL 09/02/2020 1:39 PM [facility] CDT LAB[facility]IES Comment: Narcan Omzbzwmz-8-ibew-glucuronide Not Detected Cutoff: 100 021 [facility] ng/mL 1:39 PM CDT LABORATORIES Comment: Metabolite of naloxone Methadone Not Detected Cutoff: 25 ng/mL 09/02/2020 1:39 PM [facility] CDT LAB[facility]ATORIES Comment: Dolophine EDDP Not Detected Cutoff: 25 ng/mL 09/02/2020 1:39 PM [facility] Comment: Metabolite of methadone Propoxyphene Not Detected Cutoff: 25 ng/mL 09/02/2020 1:39 P [facility] CDT LABORATORIES Comment: Darvon, Darvocet Norpropoxyphene Not Detected Cutoff: 25 09/02/2020 1:39 PM [facility] ng/mL CDT LABORATORIES Comment: Metabolite of propoxyphene Tramadol Not Detected Cutoff: 25 ng/mL 09/02/2020 1:39 PM [facility] CDT LAB[facility]IES Comment: Tradol, Ultram, Ultracet O-desmethyltramadol Not Detected Cutoff: 25 09/02/2020 1:39 [facility] ng/mL PM CDT LABORATORIES Comment: Metabolite of tramadol Tapentadol Not Detected Cutoff: 25 ng/mL 09/02/2020 1:39 PM [facility] CDT [facility] Comment: Nucynta N-desmethyltapentadol Not Detected Cutoff: 50 09/02/2020 1:3 9 [facility] ng/mL PM CDT LABORATORIES Comment: Metabolite of tapentadol Dijdyatopt-czgv-exskoykcuig Not Detected Cutoff: 100 021 [facility] ng/mL 1:39 PM CDT LABORATORIES Comment: Metabolite of tapentadol Buprenorphine Not Detected Cutoff: 5 ng/mL 09/02/2020 1:39 P M [facility] CDT LABORATORIES Comment: Buprenex, Suboxone Norbuprenorphine Present (A) Cutoff: 5 ng/mL 09/02/2020 1:39 PM [facility] CDT LABORATORIES Comment: Metabolite of buprenorphine Norbuprenorphine Present (A) Cutoff: 20 09/02/2020 1:39 [facility] glucuronide ng/mL PM CDT LABORATORIES Comment: Metabolite of buprenorphine Opioid Interpretation - 09/02/2020 1:39 PM CDT [facility] Comment: Test detected the presence of norbupreno rphine and norbuprenorphine glucuronide which are m etabolites of buprenorphine. Suspect use of buprenorph ine within the past three days. ADDITIONAL INFORMATIO N This test was developed and its performa nce characteristics determined by [facility] in a manner co nsistent with CLIA requirements. This test has not been madeleine ared or approved by the U.S. Food and Drug Administration. Creatinine, Urine 78.7 mg/dL 09/02/2020 1:39 [facility] PM CDT LABORATORIES Specific [place], 1.015 09/02/2020 1:39 [facility] Urine PM CDT LABORATORIES pH, Urine 6.6 09/02/2020 1:39 [facility] PM CDT LAB[facility]ATORIES Oxidants Negative Cutoff: 200 09/02/2020 1:39 [facility] mg/L PM CDT LABORATORIES Comment Normal 09/02/2020 1:39 [facility] CDT LAB[facility] Alprazolam Not Detected Cutoff: 10 09/02/2020 1:39 [facility] ng/mL PM CDT LABORATORIES Comment: Xanax Alpha-Hydroxyalprazolam UR Not Detected Cutoff: 10 [facility] ng/mL 1:39 PM CDT LABORATORIES Comment: Metabolite of Alprazolam Alpha-Hydroxyalprazolam Not Detected Cutoff: 50 09/02/2020 [facility] Glucuronide ng/mL 1:39 PM CDT LABORATORIES Comment: Metabolite of Alprazolam Chlordiazepoxide Not Detected Cutoff: 09/02/2020 1:39 [facility] ng/mL PM CDT LAB[facility] Comment: Librium Clobazam Not Detected Cutoff: 10 ng/mL 09/02/2020 1:39 PM [facility] CDT LABORATORIES Comment: Frisabinaum, Onfi N-Desmethylclobazam Not Detected Cutoff: 09/02/2020 1:39 [facility] ng/mL PM CDT LABORATORIES Comment: Metabolite of Clobazam Clonazepam Lvl Not Detected Cutoff: 09/02/2020 1:39 PM [facility] ng/mL CDT LAB[facility] Comment: Klonopin, Rivotril 7-Aminoclonazepam Not Detected Cutoff: 09/02/2020 1:39 [facility] ng/mL PM CDT LABORATORIES Comment: Metabolite of Clonazepam Diazepam UR Not Detected Cutoff: 09/02/2020 1:39 PM [facility] Quant ng/mL CDT LABORATORIES Comment: Valium Nordiazepam Not Detected Cutoff: 10 ng/mL 09/02/2020 1:39 PM [facility] CDT [facility] Comment: Metabolite of Chlordiazepoxide, Diazepam , or Prazepam. Flunitrazepam Not Detected Cutoff: 10 ng/mL 09/02/2020 1:39 PM [facility] CDT [facility] Comment: Rohypnol 7-Aminoflunitrazepam Not Detected Cutoff: 09/02/2020 1:39 [facility] ng/mL PM CDT LABORATORIES Comment: Metabolite of Flunitrazepam Flurazepam Not Detected Cutoff: 10 ng/mL 09/02/2020 1:39 PM [facility] CDT [facility] Comment: Dalmane 2- hydroxy ethyl Not Detected Cutoff: 09/02/2020 1:39 [facility] flurazepam ng/mL PM CDT LABORATORIES Comment: Metabolite of Flurazepam Lorazepam Not Detected Cutoff: 10 ng/mL 09/02/2020 1:39 PM [facility] CDT LAB[facility]IES Comment: Ativan Lorazepam Not Detected Cutoff: 50 09/02/2020 1:39 [facility] Glucuronide ng/mL PM CDT LABORATORIES Comment: Metabolite of Lorazepam Midazolam Not Detected Cutoff: 10 ng/mL 09/02/2020 1:39 PM [facility] CDT LAB[facility] Comment: Versed Alpha-Hydroxy Not Detected Cutoff: 10 09/02/2020 1:39 [facility] Midazolam ng/mL PM CDT LABORATORIES Comment: Metabolite of Midazolam Oxazepam Not Detected Cutoff: 10 ng/mL 09/02/2020 1:39 PM [facility] CDT LAB[facility] Comment: Serax; Also a metabolite of Chlordiazepo xide, Diazepam, or Temazepam. Oxazepam Not Detected Cutoff: 50 09/02/2020 1:39 [facility] Glucuronide ng/mL PM CDT LABORATORIES Comment: Metabolite of Oxazepam Prazepam, urine Not Detected Cutoff: 10 09/02/2020 1:39 PM [facility] ng/mL CDT LABORATORIES Comment: Centrax Temazepam Not Detected Cutoff: 10 ng/mL 09/02/2020 1:39 PM [facility] CDT LAB[facility]IES Comment: Restoril; Also a metabolite of Diazepam. Temazepam Not Detected Cutoff: 50 09/02/2020 1:39 [facility] Glucuronide ng/mL PM CDT LABORATORIES Comment: Metabolite of Temazepam Triazolam Not Detected Cutoff: 10 ng/mL 09/02/2020 1:39 PM [facility] CDT LAB[facility]IES Comment: Halcion Alpha-Hydroxy Not Detected Cutoff: 10 09/02/2020 1:39 [facility] Triazolam ng/mL PM CDT LABORATORIES Comment: Metabolite of Triazolam Zolpidem Not Detected Cutoff: 10 ng/mL 09/02/2020 1:39 PM [facility] CDT LAB[facility]IES Comment: Ambien Zolpidem Not Detected Cutoff: 10 09/02/2020 1:39 [facility] Utblyu-5-Inmpslzhcy acid ng/mL PM CDT LABOR ATORIES Comment: Metabolite of Zolpidem Benzodiazepine, Interp - 09/02/2020 1:39 P M CDT [facility] Comment: No benzodiazepines were detected. The ab sence of expected drug(s) and/or drug metabolite(s) may in dicate non-compliance, altered pharmacokinetics , inappropriate timing of specimen collection relative t o drug administration, diluted/adulterated urin e, or limitations of testing. ADDITIONAL INFORMATIO N This test was developed and its performa nce characteristics determined by [facility] in a manner co nsistent with CLIA requirements. This test has not been madeleine ared or approved by the U.S. Food and Drug Administration. Methamphetamine Not Detected Cutoff: 100 09/02/2020 1:39 PM [facility] ng/mL CDT LABORATORIES Comment: Desoxyn Amphetamines Not Detected Cutoff: 100 09/02/2020 1:39 PM [facility] ng/mL CDT LAB[facility] Comment: Dyanavel XR, Adzenys ER, Adderall, Vyvan se; Also a metabolite of methamphetamine 3,4 Not Cutoff: 09/02/2020 [facility] Methylenedioxymethamphetamine Detected 100 ng/mL 1:39 PM CD T LABORATORIES 3,4 Not Cutoff: 09/02/2020 [facility] Neehonlngwplny-P-suanxxxyelayozw Detected 100 ng/mL 1:39 PM CDT LABORATORIES e (MDEA) 3,4 Methylenedioxyamphetamine Not Cutoff: 09/02/2020 [facility] Detected 100 ng/mL 1:39 PM CDT LABORATORIES Comment: Also a metabolite of MDMA and/or MDEA Ephedrines Not Detected Cutoff: 100 09/02/2020 1:39 [facility] ng/mL PM CDT [facility] Psuedoephederine Not Detected Cutoff: 100 09/02/2020 1:39 [facility] ng/mL PM CDT LABORATORIES Comment: Sudafed Phentermine Not Detected Cutoff: 100 09/02/2020 1:39 PM [facility] ng/mL CDT LAB[facility]ATORIES Comment: Adipex-P, Lomaira, Qsymia Phencyclicine (PCP) Not Detected Cutoff: 20 09/02/2020 1:39 [facility] ng/mL PM CDT LABORATORIES Methylphenidate Not Detected Cutoff: 20 09/02/2020 1:39 [facility] ng/mL PM CDT LABORATORIES Comment: Ritalin, Concerta Ritalinic Acid Not Detected Cutoff: 100 09/02/2020 1:39 PM [facility] ng/mL CDT LABORATORIES Comment: Metabolite of methylphenidate Stimulant Interpretation - 09/02/2020 1:39 PM CDT [facility] Comment: No stimulants were detected. The absence of expected drug(s) and/or drug metabolite(s) may in dicate non-compliance, altered pharmacokinetics , inappropriate timing of specimen collection relative t o drug administration, diluted/adulterated urin e, or limitations of testing. ADDITIONAL INFORMATIO N This test was developed and its performa nce characteristics determined by [facility] in a manner co nsistent with CLIA requirements. This test has not been madeleine ared or approved by the U.S. Food and Drug Administration. Test Performed by: [facility] [address] [place] [address] [phone] Pointer: Benigno Selby M.D. Ph. D.; CLIA# [id number] List patient's Not provided 09/02/2020 1:39 PM CDT [facility] LABORATORIES Comment: ADDITIONAL INFORMATIO N Accuracy and completeness of declared me dications on reports solely dependent on information submitted by client. Specimen Anatomical Collection Method Collection Time Receive d Time (Source) Location / / Volume Laterality Urine 08/29/2020 10:40 08/29/2020 1:14 AM CDT PM CDT Melissa Coronado DNP, NETWORK ADMIN, MOLDING ASSOCIATE LAB URINE ORDERABLES Performing Organization Address City/State/ZIP Code Phon e Number [facility] see result attachment for specific address documented in this encounter Visit Diagnoses Diagnosis Opioid use disorder, moderate, in early remission, on maintenance therapy (HCC) - Primary documented in this encounter Care Teams Circulation Clerk Relationship Specialty Start Date End Date None, Pcp PCP - General Business Area Director 02/06/19 [address] [place] [address] documented as of this encounter
--- OUTSIDE RECORDS SUMMARY | 2022-01-14 01:44 | XMS_ITS | Encounter Summary ---
:1990 Author Organization [facility] Address [address] [place] [address] Care Team Providers Name Role Phone None, Pcp Primary Care Provider Unavailable Encounter Details Date Type Department Care Team Description 07/10/2020 Lab [facility] 28 weeks gestation of [address] [facility] [place] [address] Social History Tobacco Use Types Packs/Day Years [...] 03/21/2020 relatives? How often do you attend buddhism or quaker Not asked 03/21/2020 services? Do you belong to any clubs or organizations such as Not chinmay schilling 03/21/2020 buddhism groups, unions, fraternal or athletic groups, or [...] secure housing General Yes Melissa Coronado, DNP, GEOTHERMAL PLANT MANAGER, INSPECTOR BALL POINTS Note: Formatting of this note might be d ifferent from the original. - has applied for several housing lists; waiting to hear back, wants to be near family Quit using tobacco (cigarettes, Tobacco Use No Melissa Coronado, DNP, GEOTHERMAL PLANT MANAGER, smokeless, etc) INSPECTOR BALL POINTS Note: Formatting of this note might be d ifferent from the original. Will use nicorette gum in case of breakt hrough craving. Will find some candy or suckers to use d uring group to occupy her hands/oral fixation documented as of this encounter Procedures Procedure Name Priority Date/Time Associated Diagnosis Comme nts GLUCOSE TOLERANCE, Routine 07/10/2020 3:48 PM 28 weeks gestati on Results for this 1 HOUR CDT of procedure are i n the results section. RPR Routine 07/10/2020 3:48 PM 28 weeks gestation Res ults for this CDT of procedure are i n the results section. CBC Routine 07/10/2020 3:48 PM 28 weeks gestation Res ults for this CDT of procedure are i n the results section. documented in this encounter Results (ABNORMAL) CBC (Heme Group) (07/10/2020 3:48 PM CDT) P athologist Signature WBC 9.2 3.5 - 10.5 07/10/2020 [facility] K/uL 4:10 PM CDT [facility] RBC 3.78 (L) 3.90 - 07/10/2020 [facility] 5.00 M/uL 4:10 PM CDT [facility] Hemoglobin 11.6 (L) 12.0 - 07/10/2020 [facility] 15.5 g/dL 4:10 PM CDT [facility] Hematocrit 35.6 35.0 - 07/10/2020 [facility] 44.0 % 4:10 PM CDT [facility] Platelets 300 150 - 450 07/10/2020 [facility] K/uL 4:10 PM CDT [facility] MCV 94.2 81.6 - 07/10/2020 [facility] 98.3 fL 4:10 PM CDT [facility] MCH 30.7 26.0 - 07/10/2020 [facility] 32.0 pg 4:10 PM CDT [facility] MCHC 32.5 32.0 - 07/10/2020 [facility] 36.0 g/dL 4:10 PM CDT [facility] RDW 11.9 11.9 - 07/10/2020 [facility] 15.5 % 4:10 PM CDT [facility] Specimen Anatomical Collection Method Collection Time Receive d Time (Source) Location / / Volume Laterality Blood (Blood, 07/10/2020 3:48 PM 07/11/19 3:59 Venous) CDT PM CDT Sonia Ashley APRN, CNP LAB BLOOD ORDERABLES Performing Organization Address City/[facility] Code Phon e Number [facility] [address] [place], [place] [phone] RPR (07/10/2020 3:48 PM CDT) P athologist Signature RPR NON-REACTI Non-reacti 07/10/2020 [facility] VE ve 7:06 PM CDT [facility] Specimen Anatomical Collection Method Collection Time Receive d Time (Source) Location / / Volume Laterality Blood 07/10/2020 3:48 PM 4:01 CDT PM CDT Sonia Ashley APRN, CNP LAB BLOOD ORDERABLES Performing Organization Address City/[facility] Phon e Number [facility] [address] [place] [phone] 1 hour glucose (OB) (07/10/2020 3:48 PM CDT) P athologist Signature 1 Hr Glucose 112 70 - 139 07/10/2020 [facility] (OB) mg/dL 4:30 PM CDT [facility] Specimen Anatomical Collection Method Collection Time Receive d Time (Source) Location / / Volume Laterality Blood (Blood, 07/10/2020 3:48 PM 07/11/19 4:01 Venous) CDT PM CDT Sonia Ashley APRN, CNP LAB BLOOD ORDERABLES Performing Organization Address City/State/ZIP Code Phon e Number [facility] [address] [place] [address] documented in this encounter Visit Diagnoses Diagnosis 28 weeks gestation of documented in this encounter Care Teams Cake Puller Relationship Specialty Start Date End Date None, Pcp PCP - General Contact Finger Assembler 02/06/[address] [place] [address] documented as of this encounter
--- OUTSIDE RECORDS SUMMARY | 2022-01-14 01:44 | XMS_ITS | Encounter Summary ---
:1990 Author Organization [facility] Address [address] [place] [address] Care Team Providers Name Role Phone None, Pcp Primary Care Provider Unavailable Reason for Visit Reason Onset Date Comments [facility] report 08/19/2020 Encounter Details Date Type Department Care Team Description 08/19/2020 Telephone [facility] Yolanda Ware MD [facility] report Hospital Greenhouse Manager [address] [place] [address] Social History Tobacco Use Types Packs/Day Years [...] 03/21/2020 relatives? How often do you attend religious or amish Not asked 03/21/2020 services? Do you belong to any clubs or organizations such as Argelia schilling 03/21/2020 religious groups, unions, fraternal or athletic groups, or [...] this encounter Miscellaneous Notes Telephone Encounter - Farheen Liu RN - 08/19/2020 10:27 AM CDT Received [facility] report confirming- buprenorphine 531 ng/ml and nobuprenorphine 4896 ng/ml. Nurse called [facility] contact in [facility] and spoke with damper worker Alvin Gurrola. Form completed and faxed to [facility]. documented in this encounter Plan of Treatment Not on filedocumented as of this encounter Goals Goal Patient Goal Associated Recent Patient-Stated? Author Type Problems Progress secure housing General Yes Melissa Coronado, DNP, PARA PROFESSIONAL, MALTER OPERATOR Note: Formatting of this note might be d ifferent from the original. - has applied for several housing lists; waiting to hear back, wants to be near family Quit using tobacco (cigarettes, Tobacco Use No Melissa Coronado, DNP, PARA PROFESSIONAL, smokeless, etc) MALTER OPERATOR Note: Formatting of this note might be d ifferent from the original. Will use nicorette gum in case of breakt hrough craving. Will find some candy or suckers to use d uring group to occupy her hands/oral fixation documented as of this encounter Visit Diagnoses Not on filedocumented in this encounter Care Teams Grain Elevator Clerk Relationship Specialty Start Date End Date None, Pcp PCP - General Outside Machinist Supervisor 02/06/19 [address] [place] [address] documented as of this encounter
--- OUTSIDE RECORDS SUMMARY | 2022-01-14 01:44 | XMS_ITS | Encounter Summary ---
:1990 Author Organization [facility] Address [address] [place] [address] Care Team Providers Name Role Phone None, Pcp Primary Care Provider Unavailable Reason for Visit Reason Comments Med Refill Encounter Details Date Type Department Care Team Description 07/22/2020 Refill [facility] Zainab Rm MD Other constipation [facility] Ob /Reimbursement Consultant [address] [place] [id number] Social History Tobacco Use Types Packs/Day Years [...] 03/21/2020 relatives? How often do you attend adventist or synagogue Not asked 03/21/2020 services? Do you belong to any clubs or organizations such as Not chinmay schilling 03/21/2020 adventist groups, unions, fraternal or athletic groups, or [...] place to sleep or slept in a detention (including now)? Education Answer Date Recorded What is the highest level of school you have High school gra duate 03/21/2020 completed or the highest degree you have received? Sex Assigned at Date Recorded Not on file documented as of this encounter Miscellaneous Notes Telephone Encounter - Vanessa Yeager RN - 07/22/2020 2:42 PM CDT Patient returned call, states she is still using the suppositories on a daily basement and is unableto have a bowel movement without them. She is requesting the Rx be sent to [facility] pharmacy. Forwarding to provider. Telephone Encounter - Vanessa Yeager RN - 07/22/2020 2:19 PM CDT LMTRC Telephone Encounter - Rolanda Ramirez LPN - 07/22/2020 2:04 PM CDT Last visit in provider department: 07/10/2020 Last visit requested medication was discussed: 05/14/2020 Upcoming appointment with provider: 07/29/2020 with Molly Shea MD Last Rx: 05/28/2020 # 28 suppository, 0 refills () Requested Prescriptions Pending Prescriptions Disp Refills ??? bisacodyl (DULCOLAX) 10 MG suppository [Pharmacy Med Name: Bisacodyl 10 mg Rectal Suppository] 28 suppository 0 Sig: INSERT ONE SUPPOSITORY INTO THE RECTUM ONCE DAILY FOR 28 DAYS If you would like patient to continue taking this medication please update medication list and advise pharmacy. documented in this encounter Plan of Treatment Not on filedocumented as of this encounter Goals Goal Patient Goal Associated Recent Patient-Stated? Author Type Problems Progress secure housing General Yes Melissa Coronado, JUAN [place]IEGO, BULK SUGAR HANDLER, PROJECT MANAGER PROCESS DEVELOPMENT Note: Formatting of this note might be d ifferent from the original. - has applied for several housing lists; waiting to hear back, wants to be near family Quit using tobacco (cigarettes, Tobacco Use No Melissa Coronado, JUAN [place]GO, BULK SUGAR HANDLER, smokeless, etc) PROJECT MANAGER PROCESS DEVELOPMENT Note: Formatting of this note might be d ifferent from the original. Will use nicorette gum in case of breakt hrough craving. Will find some candy or suckers to use d uring group to occupy her hands/oral fixation documented as of this encounter Visit Diagnoses Diagnosis Other constipation documented in this encounter Care Teams Pricing Lead Relationship Specialty Start Date End Date None, Pcp PCP - General Trace Clerk 02/06/19 [address] [place] [address] documented as of this encounter
--- OUTSIDE RECORDS SUMMARY | 2022-01-14 01:44 | XMS_ITS | Encounter Summary ---
:1990 Author Organization [facility] Address [address] [place] [address] Care Team Providers Name Role Phone None, Pcp Primary Care Provider Unavailable Reason for Visit Reason Comments Routine Visit Encounter Details Date Type Department Care Team Description 07/10/2020 Routine [facility] Women's Health Sonia Ashley, 28 weeks gestation of (Primary Dx); [facility] LICENSE INSPECTOR, MACHINE CONTAINER WASHER Weight gain; Programs Manager [address] Opioid use disorder, moderat e, in early remission, on maintenance therapy (HCC); [address] [facility] Encounter for supervision of other miguel ángel l in third [place] [address] [place], [place] [phone] Social History Tobacco Use Types Packs/Day Years [...] 03/21/2020 relatives? How often do you attend islam or jainism Not asked 03/21/2020 services? Do you belong to any clubs or organizations such as Argelia schilling 03/21/2020 islam groups, unions, fraternal or athletic groups, or [...] Sign Reading Time Taken Comments Blood Pressure 124/82 07/10/2020 2:44 PM CDT Pulse - - Temperature - - Respiratory Rate - - Oxygen Saturation - - Inhaled Oxygen Concentration - - Weight 88.9 kg (196 lb) 07/10/2020 2:44 PM CDT Height - - Body Mass Index 33.06 04/10/2020 3:24 PM MIDDLE SCHOOL COACH documented in this encounter Patient Instructions Patient InstructionsStrekha Urbina LPN - 07/10/2020 2:40 PM CDT OB27 GCT Glucose Challenge Test We will check [...] in the lab area during the test. [employer] will call you at the correct time to have your blood drawn, one hour after drinking the Glucola. If your result is not normal, a nurse will call you about more testing. Who to Call Please contact the OBGYN department at [phone] if you experience vaginal bleeding, vaginal spotting, abnormal vaginal discharge, or have any questions/concerns. OB Concerns [facility] Center: [phone]. Due to COVID19 restrictions, you MUST call [...] hour, please contact the OBGYN clinic at [phone] during business hours (Tuesday-Tuesday, 8-5pm) or the Center at [phone] after business hours. Classes Group Classes and Center Tours ARE NOT BEING OFFERED CURRENTLY due to the Coronaviruspandemic. Here is a link to a short YouTube video tour of our beautiful Center: https://www.Dreamiseube.com/watch?v=[email or web address] [facility] has a brand new digital education platform just for you! [employer] offers anytime, anywhere, parent education designed to give you convenient access to valuable, research-based information on care, labor and , care, , and care, including lots of videos! [employer] can also provide you with unique tools like a kick cou nter, contraction timer, personal journal, and more. How to get access to [employer]: [place] for the program by going to: [email or web address] CenterMaternityApp [email or web address] You will then receive an email from [email or web address] providing you with your login and password information. Please note: The email will come from [employer] and not [facility]. If you do not receive a confirmation, be sure to check your email's Mailpile folder. After you have created your account, you can access [employer] in 2 ways: Download the free mobile talia from your talia store. Search ???[employer].?? or Login on the [employer] website: [email or web address]. COVID-19 To keep you and your family safe, we have the following recommendations: ??? Wear a mask. As of November 03, 2019, everyone in [place] must wear a mask in stores and [...] soap and water, please use alcohol-based hand marketing developer, like Purell. ??? Cough into your elbow, NOT your hands. ??? Avoid touching your eyes, nose, and mouth. ??? Try to avoid being around people who are sick. ??? If you are sick, please stay home from school, work, and other activities. ??? If you are sick or have had contact with a person who has COVID-19: Call the [facility] Nurse Triage line at [phone] during normal clinic hours. After clinic hours, use the [facility] Emergency Room if you are ill and [...] your hands often. NEW VISITOR POLICY for patient care technician instructor patients as of June 18, 2020 - TWO adults may be with you for your stay on Labor and Delivery. These two people MUST be the SAME two people all through your stay. The names of these two people will be given to Center security so that they can be checked in and out by them. - A Certified Ruffling Hemmer Automatic may also be with you during your [...] an appointment. o Call us first at [phone]. - Masks must be worn while inside [...] the Center without calling us first - [phone]. - Come in the [facility] [...] and out by them. - A Certified Ruffling Hemmer Automatic may also be with you during your [...] more information about COVID-19 in and ? https://www.acog.org/patient-resources/faqs//rpzjgczynpi-iebiwsccz-cao- Looking for information specifically on the COVID vaccine in ? [facility] You[employer] Channel https://youITeamu.be/XC-bxarLQek The CDC https://www.cdc.gov/coronavirus/2019-ncov/vaccines/recommendations/.htm l The Society for Maternal Medicine https://www.highriskpregnancyinfo.org/covid-19 documented in this encounter Progress Notes Sonia Ashley APRN, MIK - 07/10/2020 2:40 PM CDT Patient presents alone. 1. Feels okay. Some BH contractions. Denies vaginal bleeding, contractions, leaking fluid or decreased movement. 2. Perinatology visit scheduled 07/29/2020. 3. Anesthesia consult ordered and patient agrees with plan. 4. Reviewed COVID-19 precautions and updates. 5. Continues in outpatient treatment and remains sober. 6. Considering leaving [facility]OB. Has a counselor through treatment program. 7. Patient planning referral to [facility] at 36 weeks. Sonia Ashley APRN, CNP - 07/10/2020 2:40 PM CDT 8. Patient states she had echo for herself and fetus recently. [facility] reports reviewed and added the problem list. documented in this encounter Miscellaneous Notes Addendum Note - Gordy Urbina LPN - 07/10/2020 2:40 PM CDT Addended by: GORDY URBINA on: 07/10/2020 03:54 PM Modules accepted: Orders documented in this encounter Plan of Treatment Not on filedocumented as of this encounter Goals Goal Patient Goal Associated Recent Patient-Stated? Author Type Problems Progress secure housing General Yes Melissa Coronado, JUAN DIEGO, LICENSE INSPECTOR, MACHINE CONTAINER WASHER Note: Formatting of this note might be d ifferent from the original. - has applied for several housing lists; waiting to hear back, wants to be near family Quit using tobacco (cigarettes, Tobacco Use No Melissa Coronado, JUAN DIEGO, LICENSE INSPECTOR, smokeless, etc) MACHINE CONTAINER WASHER Note: Formatting of this note might be d ifferent from the original. Will use nicorette gum in case of breakt hrough craving. Will find some candy or suckers to use d uring group to occupy her hands/oral fixation documented as of this encounter Results (ABNORMAL) CBC (Heme Group) (07/10/2020 3:48 PM CDT) athologist Signature WBC 9.2 3.5 - 10.5 07/10/2020 [facility] K/uL 4:10 PM CDT [facility] RBC 3.78 (L) 3.90 - 07/10/2020 [facility] 5.00 M/uL 4:10 PM CDT [facility] Hemoglobin 11.6 (L) 12.0 - 07/10/2020 [facility] 15.5 g/dL 4:10 PM CDT [facility] Hematocrit 35.6 35.0 - 07/10/2020 [facility] 44.0 % 4:10 PM CDT [facility] Platelets 300 150 - 450 07/10/2020 [facility] K/uL 4:10 PM CDT [facility] MCV 94.2 81.6 - 07/10/2020 [facility] 98.3 fL 4:10 PM CDT [facility] MCH 30.7 26.0 - 07/10/2020 [facility] 32.0 pg 4:10 PM CDT [facility] MCHC 32.5 32.0 - 07/10/2020 [facility] 36.0 g/dL 4:10 PM CDT [facility] RDW 11.9 11.9 - 07/10/2020 [facility] 15.5 % 4:10 PM CDT [facility] Specimen Anatomical Collection Method Collection Time Receive d Time (Source) Location / / Volume Laterality Blood (Blood, 07/10/2020 3:48 PM 07/11/19 21 3:59 Venous) CDT PM CDT Sonia Ashley APRN, MACHINE CONTAINER WASHER LAB BLOOD ORDERABLES Performing Organization Address City/State/ZIP Code Phon e Number [facility] [address] [place] [address] RPR (07/10/2020 3:48 PM CDT) athologist Signature RPR NON-REACTI Non-reacti 07/10/2020 [facility] VE ve 7:06 PM CDT [facility] Specimen Anatomical Collection Method Collection Time Receive d Time (Source) Location / / Volume Laterality Blood 07/10/2020 3:48 PM 4:01 CDT PM CDT Sonia Ashley APRN, CNP LAB BLOOD ORDERABLES Performing Organization Address City/[facility]/ZIP Code Phon e Number [facility] [address] [place] [phone] 1 hour glucose (OB) (07/10/2020 3:48 PM CDT) athologist Signature 1 Hr Glucose 112 70 - 139 07/10/2020 [facility] (OB) mg/dL 4:30 PM CDT [facility] Specimen Anatomical Collection Method Collection Time Receive d Time (Source) Location / / Volume Laterality Blood (Blood, 07/10/2020 3:48 PM 07/11/19 4:01 Venous) CDT PM CDT Sonia Ashley APRN, CNP LAB BLOOD ORDERABLES Performing Organization Address City/[facility]/ZIP [facility] Phon e Number [facility] [address] [place] [phone] documented in this encounter Visit Diagnoses Diagnosis 28 weeks gestation of - Primar y Weight gain Other symptoms concerning nutrition, met abolism, and development Opioid use disorder, moderate, in early remission, on maintenance therapy (HCC) Encounter for supervision of other miguel ángel l in third trimester documented in this encounter Care Teams Bearing Machine Operator Relationship Specialty Start Date End Date None, Pcp PCP - General Computer Graphics Illustrator 02/06/19 [address] [place] [address] documented as of this encounter
--- OUTSIDE RECORDS SUMMARY | 2022-01-14 01:44 | XMS_ITS | Encounter Summary ---
:1990 Author Organization [facility] Address [address] [place], [place] [id number] Care Team Providers Name Role Phone None, Pcp Primary Care Provider Unavailable Encounter Details Date Type Department Care Team Description 07/10/2020 Orders Only [facility] Women's Health Sonia Valencia , RETAIL CASHIER ASSOCIATE, [facility] Production Bow Maker TAP GRINDER [address] [facility] [address] [place] [address] [place] [phone] (Wo rk) Social History Tobacco Use Types [...] How often do you attend adventist or roman catholic Not asked 03/21/2020 services? Do you belong to any clubs or organizations such as Argelia schilling 03/21/2020 adventist groups, unions, fraternal or [...] secure housing General Yes Melissa Coronado, DNP, RETAIL CASHIER ASSOCIATE, TAP GRINDER Note: Formatting of this note might be d ifferent from the original. - has applied for several housing lists; waiting to hear back, wants to be near family Quit using tobacco (cigarettes, Tobacco Use No Melissa Coronado, JUAN DIEGO, RETAIL CASHIER ASSOCIATE, smokeless, etc) TAP GRINDER Note: Formatting of this note might be d ifferent from the original. Will use nicorette gum in case of breakt hrough craving. Will find some candy or suckers to use d uring group to occupy her hands/oral fixation documented as of this encounter Visit Diagnoses Not on filedocumented in this encounter Care Teams Teacher Of The Sight Impaired Relationship Specialty Start Date End Date None, Pcp PCP - General Interlocking And Signal Mechanic 02/06/[address] [place] [phone] documented as of this encounter
--- OUTSIDE RECORDS SUMMARY | 2022-01-14 01:44 | XMS_ITS | Encounter Summary ---
:1990 Author Organization [facility] Address [address] [place] [address] Care Team Providers Name Role Phone None, Pcp Primary Care Provider Unavailable Reason for Visit Reason Comments MAT Clinic Follow Up Encounter Details Date Type Department Care Team Description 08/29/2020 Office Visit SE MEDICATION Melissa Coronado Opioid use disorder, moderate, in early remission, on maintenance therapy (HCC) (Primary Dx); ASSISTED TREATMENT Jody., DNP, CHIN STRAP SEWER, DECK HAND Cigarette nicotine dependence without co mplication [address] [facility] [address] [place] [address] [place] [phone] [id number] Social History Tobacco Use Types Packs/Day Years [...] 03/21/2020 relatives? How often do you attend hoahaoism or protestant Not asked 03/21/2020 services? Do you belong to any clubs or organizations such as Argelia schilling 03/21/2020 hoahaoism groups, unions, fraternal or athletic groups, or [...] Sign Reading Time Taken Comments Blood Pressure 127/72 08/29/2020 10:58 AM CDT Pulse 81 08/29/2020 10:58 AM CDT Temperature 36.8 ??C (98.3 ??F) 08/29/2020 10:58 AM CDT Respiratory Rate - - Oxygen Saturation 98% 08/29/2020 10:58 AM CDT Inhaled Oxygen Concentration - - Weight - - Height - - Body Mass Index - - documented in this encounter Patient Instructions Patient InstructionsMelissa Coronado DNP, APRN, MIK - 08/29/2020 11:00 AM CDT Continue Subutex 8 mg and 2 mg twice daily. Follow up on Tuesday with Omid Morales on 09/26/2020 with lab prior. Call MAT clinic at [phone] with any questions or concerns. documented in this encounter Progress Notes Melissa Coronado DNP, APRN, MIK - 08/29/2020 11:00 AM CDT Images from the original note were not included. MAT Clinic Follow Up Note Discussion Date: 08/29/2020 12:20 PM CHIEF COMPLAINT: Anjali presents for MAT Clinic follow up visit for management of opioid use disorder. Last visit: 07/31/2020 She has been taking Suboxone as prescribed: [...] after delivery. No cravings, no use. Currently 34w6d with best Estimated Date of Delivery: 10/04/20 by 8-week ultrasound. She had her first appointments at [facility] today since transferring her care there. She is still vaping nicotine, but less so. She is still stayingwith her grandparents, her sister, and her dad in [facility]. Her boyfriend was released to the [place] area and will be attending the ultrasound today with her at [facility]. Things are going well in their relationship. FUNCTIONAL HEALTH Mood: Anxious Sleep: not discussed Appetite: normal, no concerns Employment status changes: not discussed Housing: currently living with grandparents but looking for apartment now that legal charge has beendropped Current life stressors: finding housing and working [...] ASSESSMENT: Problem List Items Addressed This Visit Nervous Nicotine dependence Overview 11.16.20 Smokes half pack daily and declines smoking cessation aides. 12.9.20 QUIT, mandatory on entry to [place] [facility]. 05.14.20 [facility] Tobacco Now vaping nicotine/smoking approximately 1 to 2 cigarettes/day Relevant Medications nicotine polacrilex (Nicorette) 4 MG gum Other Opioid use disorder, moderate, in early remission, on maintenance therapy (HCC) - Primary Overview 04/23/20 RUDS at each visit, negative 04/23/2020.-MSR Last UDS negative 05/22/2020 Transfer of care to the MAT clinic for ongoing buprenorphine therapy 04/17/2020 Currently on 20 mg Subutex daily Plan made to deliver at [facility] for visits until 36 weeks, then transfered to [facility] on08/29/2020. Current Assessment & Plan It was a pleasure to visit with Ms. Hoang. She is maintained at stable dose of 20 mg Subutex daily. Patient is currently 36 weeks , experiencing heartburn, constipation, feeling baby movements regularly, transfered care to [facility] today. Concerns: nicotine dependence; emotional health, relationship with child's father Last UDS results: as expected Today's Plan: Continue Subutex 20 mg daily with follow-up in 4 weeks Relevant Medications nicotine polacrilex (Nicorette) 4 MG gum buprenorphine (SUBUTEX) 2 MG buprenorphine (SUBUTEX) 8 MG No orders of the defined types were placed in this encounter. PLAN: Continue with MAT Clinic Treatment Program and plan of care. Patient will follow up in 4 week(s) Patient Instructions Continue Subutex 8 mg and 2 mg twice daily. Follow up on Tuesday with Omid Morales on 09/26/2020 with lab prior. Call MAT clinic at [phone] with any questions or concerns. Patient goals: Goals ??? Quit using tobacco (cigarettes, smokeless, etc) Will use nicorette gum in case of breakthrough craving. Will find some candy or suckers to use during group to occupy her hands/oral fixation ??? secure housing (pt-stated) - has applied for several housing lists; waiting to hear back, wants to be near family Melissa Coronado DNP, CHIN STRAP SEWER, DECK HAND documented in this encounter Miscellaneous Notes Assessment & Plan Note - Melissa Coronado DNP, CHIN STRAP SEWER, DECK HAND - 08/29/2020 9:13 AM CDTAssociated Problem(s): Opioid use disorder, moderate, in early remission, on maintenance therapy (HCC) It was a pleasure to visit with Ms. Hoang. She is maintained at stable dose of 20 mg Subutex daily. Patient is currently 36 weeks , experiencing heartburn, constipation, feeling baby movements regularly, transfered care to [facility] today. Concerns: nicotine dependence; emotional health, relationship with child's father Last UDS results: as expected Today's Plan: Continue Subutex 20 mg daily with follow-up in 4 weeks documented in this encounter Plan of Treatment Not on filedocumented as of this encounter Goals Goal Patient Goal Associated Recent Patient-Stated? Author Type Problems Progress secure housing General Yes Melissa Coronado, [place], CHIN STRAP SEWER, DECK HAND Note: Formatting of this note might be d ifferent from the original. - has applied for several housing lists; waiting to hear back, wants to be near family Quit using tobacco (cigarettes, Tobacco Use No Melissa Coronado, [place], CHIN STRAP SEWER, smokeless, etc) DECK HAND Note: Formatting of this note might be d ifferent from the original. Will use nicorette gum in case of breakt hrough craving. Will find some candy or suckers to use d uring group to occupy her hands/oral fixation documented as of this encounter Results (ABNORMAL) Controlled Substance Monitoring Panel, Urine (09/26/2020 12:18 PM CDT) Component Value Ref Test Analysis Performed At [facility] Range Method Time Signature Barbiturates Negative Cutoff: 09/30/2020 [facility] 200 6:20 AM CDT LABORATORIES ng/mL Cocaine Negative Cutoff: 09/30/2020 [facility] 150 6:20 AM CDT LABORATORIES ng/mL Tetrahydrocannabinol Negative Cutoff: 09/30/2020 [facility] 50 ng/mL 6:20 AM CDT LABORATORIES Comment: ADDITIONAL INFORMATIO N This report is intended for use in clini wilfred monitoring or management of patients. ??It is not inte nded for use in employment-related testing. Codeine Not Detected Cutoff: 25 ng/mL 09/30/2020 6:20 AM [facility] CDT LABORATORIES Comment: Tylenol 3 Ehdsaua-4-ujoe-glucuronide Not Detected Cutoff: 100 10/01/19 [facility] ng/mL 6:20 AM CDT LABORATORIES Comment: Metabolite of codeine Morphine Urine Not Detected Cutoff: 25 09/30/2020 6:20 AM [facility] ng/mL CDT [facility] Comment: Emilia Perry, MS Contin; Also a minor metabolite (10%) of codeine and can be seen in low concentra tions (<2,000 ng/mL) with poppy seed ingestion. Chbefbon-1-tivu-glucuronide Not Detected Cutoff: 100 021 [facility] ng/mL 6:20 AM CDT LABORATORIES Comment: Metabolite of morphine 6-monoacetylmorphine Not Detected Cutoff: 25 09/30/2020 6:20 [facility] ng/mL AM CDT LABORATORIES Comment: Metabolite of heroin Hydrocodone Not Detected Cutoff: 25 ng/mL 09/30/2020 6:20 AM [facility] CDT LABORATORIES Comment: Lortab, [place], Vicodin; Also a very phoenix r metabolite of codeine and impurity (<1%) of oxycodone. Norhydrocodone Not Detected Cutoff: 09/30/2020 6:20 AM [facility] ng/mL CDT [facility] Comment: Metabolite of hydrocodone Dihydrocodeine Not Detected Cutoff: 25 09/30/2020 6:20 AM [facility] ng/mL CDT [facility] Comment: Metabolite of hydrocodone Hydromorphone Not Detected Cutoff: 25 ng/mL 09/30/2020 6:20 AM [facility] CDT LABORATORIES Comment: Dilaudid, Exalgo; Also a metabolite of h ydrocodone and a minor (<5%) metabolite of morphine. Qkjzalxywwgos-7-xrto-glucuronide Not Cutoff: [facility] Detected 100 ng/mL 6:20 AM CDT LABORATORIES Comment: Metabolite of hydromorphone Oxycodone Not Detected Cutoff: 25 ng/mL 09/30/2020 6:20 AM [facility] CDT LABORATORIES Comment: Endocet, Percocet, Oxycontin Noroxycodone Not Detected Cutoff: 25 ng/mL 09/30/2020 6:20 A M [facility] CDT LABORATORIES Comment: Metabolite of oxycodone Oxymorphone Not Detected Cutoff: 25 ng/mL 09/30/2020 6:20 AM [facility] CDT LABORATORIES Comment: Numorphan, Opana; Also a metabolite of o xycodone. Lbyjakpfzgd-6-jplc-glucuronide Not Detected Cutoff: 2020 [facility] 100 ng/mL 6:20 AM CDT LABORATORIES Comment: Metabolite of oxymorphone and/or naloxon e (nornaloxone) Noroxymorphone Not Detected Cutoff: 25 09/30/2020 6:20 AM [facility] ng/mL CDT LABORATORIES Comment: Metabolite of oxymorphone and/or naloxon e (nornaloxone) Fentanyl Not Detected Cutoff: 2 ng/mL 09/30/2020 6:20 AM [facility] CDT LABORATORIES Comment: Actiq, Duragesic, Fentora Norfentanyl Not Detected Cutoff: 2 ng/mL 09/30/2020 6:20 AM [facility] CDT LABORATORIES Comment: Metabolite of fentanyl Meperidine Not Detected Cutoff: 25 ng/mL 09/30/2020 6:20 AM [facility] CDT [facility] Comment: Demerol Normeperidine Not Detected Cutoff: 25 ng/mL 09/30/2020 6:20 AM [facility] CDT LAB[facility]IES Comment: Metabolite of meperidine Naloxone Not Detected Cutoff: 25 ng/mL 09/30/2020 6:20 AM [facility] CDT LABORATORIES Comment: Narcan Jczkiamz-7-vfmg-glucuronide Not Detected Cutoff: 100 021 [facility] ng/mL 6:20 AM CDT LABORATORIES Comment: Metabolite of naloxone Methadone Not Detected Cutoff: 25 ng/mL 09/30/2020 6:20 AM [facility] CDT LABORATORIES Comment: Dolophine EDDP Not Detected Cutoff: 25 ng/mL 09/30/2020 6:20 AM [facility] Comment: Metabolite of methadone Propoxyphene Not Detected Cutoff: 25 ng/mL 09/30/2020 6:20 A M [facility] CDT LABORATORIES Comment: Darvon, Darvocet Norpropoxyphene Not Detected Cutoff: 25 09/30/2020 6:20 AM [facility] ng/mL CDT LABORATORIES Comment: Metabolite of propoxyphene Tramadol Not Detected Cutoff: 25 ng/mL 09/30/2020 6:20 AM [facility] CDT LABORATORIES Comment: Tradol, Ultram, Ultracet O-desmethyltramadol Not Detected Cutoff: 25 09/30/2020 6:20 [facility] ng/mL AM CDT LABORATORIES Comment: Metabolite of tramadol Tapentadol Not Detected Cutoff: 25 ng/mL 09/30/2020 6:20 AM [facility] CDT LAB[facility]IES Comment: Nucynta N-desmethyltapentadol Not Detected Cutoff: 50 09/30/2020 6:2 0 [facility] ng/mL AM CDT LABORATORIES Comment: Metabolite of tapentadol Oeddzreqnw-qzzj-bcncmmnzhlm Not Detected Cutoff: 100 021 [facility] ng/mL 6:20 AM CDT LABORATORIES Comment: Metabolite of tapentadol Buprenorphine Present (A) Cutoff: 5 ng/mL 09/30/2020 6:20 AM [facility] CDT LABORATORIES Comment: Buprenex, Suboxone Norbuprenorphine Present (A) Cutoff: 5 ng/mL 09/30/2020 6:20 AM [facility] CDT LABORATORIES Comment: Metabolite of buprenorphine Norbuprenorphine Present (A) Cutoff: 20 09/30/2020 6:20 [facility] glucuronide ng/mL AM CDT LABORATORIES Comment: Metabolite of buprenorphine Opioid Interpretation - 09/30/2020 6:20 AM CDT [facility] Comment: Test detected the presence of buprenorph ine and its metabolites (norbuprenorphine, norbupren orphine glucuronide). Suspect use of buprenorphi ne within the past three days. ADDITIONAL INFORMATIO N This test was developed and its performa nce characteristics determined by [facility] in a manner co nsistent with CLIA requirements. This test has not been madeleine ared or approved by the U.S. Food and Drug Administration. Creatinine, Urine 124.1 mg/dL 09/30/2020 6:20 [facility] AM CDT LABORATORIES Specific Piru, 1.016 09/30/2020 6:20 [facility] Urine AM CDT LABORATORIES pH, Urine 6.0 09/30/2020 6:20 [facility] CDT LABORATORIES Oxidants Negative Cutoff: 200 09/30/2020 6:20 [facility] mg/L AM CDT LABORATORIES Comment Normal 09/30/2020 6:20 [facility] CDT LAB[facility]IES Alprazolam Not Detected Cutoff: 10 09/30/2020 6:20 [facility] ng/mL AM CDT LABORATORIES Comment: Xanax Alpha-Hydroxyalprazolam UR Not Detected Cutoff: 10 [facility] ng/mL 6:20 AM CDT LABORATORIES Comment: Metabolite of Alprazolam Alpha-Hydroxyalprazolam Not Detected Cutoff: 50 09/30/2020 [facility] Glucuronide ng/mL 6:20 AM CDT LABORATORIES Comment: Metabolite of Alprazolam Chlordiazepoxide Not Detected Cutoff: 10 09/30/2020 6:20 [facility] ng/mL AM CDT [facility] Comment: Librium Clobazam Not Detected Cutoff: 10 ng/mL 09/30/2020 6:20 AM [facility] CDT LAB[facility] Comment: Frisabinaum, Onfi N-Desmethylclobazam Not Detected Cutoff: 200 09/30/2020 6:20 [facility] ng/mL AM CDT LAB[facility]ATORIES Comment: Metabolite of Clobazam Clonazepam Lvl Not Detected Cutoff: 09/30/2020 6:20 AM [facility] ng/mL CDT [facility] Comment: Klonopin, Rivotril 7-Aminoclonazepam Not Detected Cutoff: 10 09/30/2020 6:20 [facility] ng/mL AM CDT [facility] Comment: Metabolite of Clonazepam Diazepam UR Not Detected Cutoff: 09/30/2020 6:20 AM [facility] Quant ng/mL CDT LABORATORIES Comment: Valium Nordiazepam Not Detected Cutoff: 10 ng/mL 09/30/2020 6:20 AM [facility] CDT LAB[facility] Comment: Metabolite of Chlordiazepoxide, Diazepam , or Prazepam. Flunitrazepam Not Detected Cutoff: 10 ng/mL 09/30/2020 6:20 AM [facility] CDT [facility] Comment: Rohypnol 7-Aminoflunitrazepam Not Detected Cutoff: 10 09/30/2020 6:20 [facility] ng/mL AM CDT LAB[facility] Comment: Metabolite of Flunitrazepam Flurazepam Not Detected Cutoff: 10 ng/mL 09/30/2020 6:20 AM [facility] CDT [facility] Comment: Dalmane 2- hydroxy ethyl Not Detected Cutoff: 10 09/30/2020 6:20 [facility] flurazepam ng/mL AM CDT LABORATORIES Comment: Metabolite of Flurazepam Lorazepam Not Detected Cutoff: 10 ng/mL 09/30/2020 6:20 AM [facility] CDT LAB[facility] Comment: Ativan Lorazepam Not Detected Cutoff: 50 09/30/2020 6:20 [facility] Glucuronide ng/mL AM CDT LABORATORIES Comment: Metabolite of Lorazepam Midazolam Not Detected Cutoff: 10 ng/mL 09/30/2020 6:20 AM [facility] CDT [facility] Comment: Versed Alpha-Hydroxy Not Detected Cutoff: 10 09/30/2020 6:20 [facility] Midazolam ng/mL AM CDT LABORATORIES Comment: Metabolite of Midazolam Oxazepam Not Detected Cutoff: 10 ng/mL 09/30/2020 6:20 AM [facility] CDT LAB[facility] Comment: Serax; Also a metabolite of Chlordiazepo xide, Diazepam, or Temazepam. Oxazepam Not Detected Cutoff: 50 09/30/2020 6:20 [facility] Glucuronide ng/mL AM CDT LABORATORIES Comment: Metabolite of Oxazepam Prazepam, urine Not Detected Cutoff: 10 09/30/2020 6:20 AM [facility] ng/mL CDT LABORATORIES Comment: Centrax Temazepam Not Detected Cutoff: 10 ng/mL 09/30/2020 6:20 AM [facility] CDT LAB[facility] Comment: Restoril; Also a metabolite of Diazepam. Temazepam Not Detected Cutoff: 50 09/30/2020 6:20 [facility] Glucuronide ng/mL AM CDT LABORATORIES Comment: Metabolite of Temazepam Triazolam Not Detected Cutoff: 10 ng/mL 09/30/2020 6:20 AM [facility] CDT LAB[facility] Comment: Halcion Alpha-Hydroxy Not Detected Cutoff: 10 09/30/2020 6:20 [facility] Triazolam ng/mL AM CDT LABORATORIES Comment: Metabolite of Triazolam Zolpidem Not Detected Cutoff: 10 ng/mL 09/30/2020 6:20 AM [facility] CDT LAB[facility]IES Comment: Ambien Zolpidem Not Detected Cutoff: 10 09/30/2020 6:20 [facility] Chngtb-7-Eyxuwnbofk acid ng/mL AM CDT LABOR ATORIES Comment: Metabolite of Zolpidem Benzodiazepine, Interp - 09/30/2020 6:20 A M CDT [facility] Comment: No benzodiazepines were detected. The ab sence of expected drug(s) and/or drug metabolite(s) may in dicate non-compliance, altered pharmacokinetics , inappropriate timing of specimen collection relative t o drug administration, diluted/adulterated urin e, or limitations of testing. ADDITIONAL INFORMATIO N This test was developed and its performa nce characteristics determined by [facility] in a manner co nsistent with CLIA requirements. This test has not been madeleine ared or approved by the U.S. Food and Drug Administration. Methamphetamine Not Detected Cutoff: 100 09/30/2020 6:20 AM [facility] ng/mL CDT LABORATORIES Comment: Desoxyn Amphetamines Not Detected Cutoff: 100 09/30/2020 6:20 AM [facility] ng/mL CDT [facility] Comment: Dyanavel XR, Adzenys ER, Adderall, Vyvan se; Also a metabolite of methamphetamine 3,4 Not Cutoff: 09/30/2020 [facility] Methylenedioxymethamphetamine Detected 100 ng/mL 6:20 AM CD T LABORATORIES 3,4 Not Cutoff: 09/30/2020 [facility] Spnyhlrwgsojrw-B-yozkuwxdpxiqork Detected 100 ng/mL 6:20 AM CDT LABORATORIES e (MDEA) 3,4 Methylenedioxyamphetamine Not Cutoff: 09/30/2020 [facility] Detected 100 ng/mL 6:20 AM CDT LABORATORIES Comment: Also a metabolite of MDMA and/or MDEA Ephedrines Not Detected Cutoff: 100 09/30/2020 6:20 [facility] ng/mL AM CDT [facility] Psuedoephederine Not Detected Cutoff: 100 09/30/2020 6:20 [facility] ng/mL AM CDT [facility] Comment: Sudafed Phentermine Not Detected Cutoff: 100 09/30/2020 6:20 AM [facility] ng/mL CDT LAB[facility]IES Comment: Adipex-P, Lomaira, Qsymia Phencyclicine (PCP) Not Detected Cutoff: 20 09/30/2020 6:20 [facility] ng/mL AM CDT LABORATORIES Methylphenidate Not Detected Cutoff: 09/30/2020 6:20 [facility] ng/mL AM CDT LABORATORIES Comment: Ritalin, Concerta Ritalinic Acid Not Detected Cutoff: 100 09/30/2020 6:20 AM [facility] ng/mL CDT LAB[facility]ATOR[facility] Comment: Metabolite of methylphenidate Stimulant Interpretation - 09/30/2020 6:20 AM CDT [facility] Comment: No stimulants were detected. The absence of expected drug(s) and/or drug metabolite(s) may in dicate non-compliance, altered pharmacokinetics , inappropriate timing of specimen collection relative t o drug administration, diluted/adulterated urin e, or limitations of testing. ADDITIONAL INFORMATIO N This test was developed and its performa nce characteristics determined by [facility] in a manner co nsistent with CLIA requirements. This test has not been madeleine ared or approved by the U.S. Food and Drug Administration. Test Performed by: [facility] [address] [place] [address] [address] Beer Runner: Benigno Selby M.D. Ph. D.; CLIA# [id number] List patient's Not provided 09/30/2020 6:20 AM CDT [facility] LABORATORIES Comment: ADDITIONAL INFORMATIO N Accuracy and completeness of declared me dications on reports solely dependent on information submitted by client. Specimen Anatomical Collection Method Collection Time Receive d Time (Source) Location / / Volume Laterality Urine 09/26/2020 12:18 09/26/2020 3:40 PM CDT PM CDT Melissa Coronado DNP, CHIN STRAP SEWER, DECK HAND LAB URINE ORDERABLES Performing Organization Address City/State/ZIP Code Phon e Number [facility] see result attachment for specific address documented in this encounter Visit Diagnoses Diagnosis Opioid use disorder, moderate, in early remission, on maintenance therapy (HCC) - Primary Cigarette nicotine dependence without co mplication documented in this encounter Care Teams Bilingual Research Interviewer Relationship Specialty Start Date End Date None, Pcp PCP - General Tower Loader Operator 02/06/[address] [place] [phone] documented as of this encounter
--- OUTSIDE RECORDS SUMMARY | 2022-01-14 01:44 | XMS_ITS | Encounter Summary ---
:1990 Author Organization [facility] Address [address] [place] [address] Care Team Providers Name Role Phone None, Pcp Primary Care Provider Unavailable Encounter Details Date Type Department Care Team Description 08/12/2020 [facility] Opioid use disorder, moderat e, [address] [facility] in early remission, [place] [address] maintenance therapy ([facility]) [phone] Social History Tobacco Use Types Packs/Day Years [...] 03/21/2020 relatives? How often do you attend holiness or buddhist Not asked 03/21/2020 services? Do you belong to any clubs or organizations such as Argelia schilling 03/21/2020 holiness groups, unions, fraternal or athletic groups, or [...] secure housing General Yes Melissa Coronado, DNP, PIT TANNER, TECHNICAL STENOGRAPHER Note: Formatting of this note might be d ifferent from the original. - has applied for several housing lists; waiting to hear back, wants to be near family Quit using tobacco (cigarettes, Tobacco Use No Melissa Coronado, DNP, PIT TANNER, smokeless, etc) TECHNICAL STENOGRAPHER Note: Formatting of this note might be d ifferent from the original. Will use nicorette gum in case of breakt hrough craving. Will find some candy or suckers to use d uring group to occupy her hands/oral fixation documented as of this encounter Procedures Procedure Name Priority Date/Time Associated Comments Diagnosis BUPRENORPHINE Routine 08/12/2020 3:32 PM Opioid use Results for this CONFIRMATION CDT disorder, moderate, procedur e are in in early remission, the resu lts on maintenance section. therapy (HCC) RAPID DRUG SCREEN, Routine 08/12/2020 3:32 PM Opioid use Res ults for this URINE CDT disorder, moderate, procedur e are in in early remission, the resu lts on maintenance section. therapy (HCC) documented in this encounter Results Buprenorphine conf. (08/12/2020 3:32 PM CDT) [facility] Method Time Signature Buprenorphine see below 08/18/2020 [facility] 5:18 PM CDT LABORATORIES Comment: See scanned [facility] Report. Specimen Anatomical Collection Method Collection Time Receive d Time (Source) Location / / Volume Laterality 08/12/2020 3:32 PM 3:37 CDT PM CDT Zainab Rm MD LAB URINE ORDERABLES Performing Organization Address City/State/ZIP Code Phon e Number [facility] [address] [place] [address] (ABNORMAL) Rapid drug screen, urine (08/12/2020 3:32 PM CDT) athologist Signature Rapid Urine ----- 08/12/2020 [facility] Drug Screen 3:32 PM [facility]ENTER [facility] Comment: This is a screening test. ??Positive res ults should be considered presumptive and are sent to [facility] for confirmation. This test is not for legal purposes - on medical. Tetrahydrocannabinol NOT DETECTED Not Detected 08/12/2020 3: 57 [facility] Phencyclidine, Mec NOT DETECTED Not Detected 08/12/2020 3:57 [facility] Cocaine NOT DETECTED Not Detected 08/12/2020 3:57 [facility] Methamphetamine NOT DETECTED Not Detected 08/12/2020 3:57 [facility] Opiates NOT DETECTED Not Detected 08/12/2020 3:57 [facility] Amphetamines NOT DETECTED Not Detected 08/12/2020 3:57 [facility] Benzodiazepines NOT DETECTED Not Detected 08/12/2020 3:57 [facility] TCA, Urine NOT DETECTED Not Detected 08/12/2020 3:57 [facility] Methadone NOT DETECTED Not Detected 08/12/2020 3:57 [facility] Barbiturates NOT DETECTED Not Detected 08/12/2020 3:57 [facility] Oxycodone NOT DETECTED Not Detected 08/12/2020 3:57 [facility] Propoxyphene NOT DETECTED Not Detected 08/12/2020 3:57 [facility] Buprenorphine DETECTED (A) Not Detected 08/12/2020 3:57 [facility] Comment: Sent to [facility] for GC/MS confirmation. Detectable Levels ----- 08/12/2020 3:32 PM CDT [facility] Comment: Amphetamines ?500 ng/ mL [...] Organization Address City/State/ZIP Code Phon e Number [facility] [address] [place] [address] documented in this encounter Visit Diagnoses Diagnosis Opioid use disorder, moderate, in early remission, on maintenance therapy (HCC) documented in this encounter Care Teams Mechanical Project Engineer Relationship Specialty Start Date End Date None, Pcp PCP - General Plant And Equipment Worker 02/06/[address] [place] [address] documented as of this encounter
--- OUTSIDE RECORDS SUMMARY | 2022-01-14 01:45 | XMS_ITS | Encounter Summary ---
:1990 Author Organization [facility] Address [address] [place] [address] Care Team Providers Name Role Phone None, Pcp Primary Care Provider Unavailable Encounter Details Date Type Department Care Team Description 06/04/2020 Lab [facility] Lab Opioid use disorder, moderat e, [address] in early remission, [place] [address] maintenance therapy ([facility] [phone] Social History Tobacco Use Types Packs/Day Years [...] How often do you attend baptism or temple Not asked 03/21/2020 services? Do you belong [...] Result Encounter Note - Melissa Coronado DNP, NICHOLAS, MIK - 06/04/2020 11:00 AM CST Results as expected, no illicit use, compliant with Suboxone therapy RMATION SYSTEMS ADMINISTRATOR documented in this encounter Plan of Treatment Not on filedocumented as of this encounter Goals Goal Patient Goal Associated Recent Patient-Stated? Author Type Problems Progress secure housing General Yes Melissa Coronado DNP, PRIVATE EQUITY ASSOCIATE, MIK Note: Formatting of this note might be d ifferent from the original. - has applied for several housing lists; waiting to hear back, wants to be near family Quit using tobacco (cigarettes, Tobacco Use No Melissa Coronado DNP, NICHOLAS, smokeless, etc) BALLAST CLEANING OPERATOR Note: Formatting of this note might be d ifferent from the original. Will use nicorette gum in case of breakt hrough craving. Will find some candy or suckers to use d uring group to occupy her hands/oral fixation documented as of this encounter Procedures Procedure Name Priority Date/Time Associated Diagnosis Comme nts CONTROLLED Routine 06/04/2020 11:39 Opioid use disorder, Res ults for this SUBSTANCES AM INFORMATION SYSTEMS ADMINISTRATOR moderate, in early procedure are in MONITORING PANEL, remission, on the [facility] URINE maintenance therapy section. (HCC) documented in this encounter Results (ABNORMAL) Controlled Substance Monitoring Panel, Urine (06/04/2020 11:39 AM INFORMATION SYSTEMS ADMINISTRATOR) Component Value Ref Test Analysis Performed At [facility] Range Method Time Signature Amphetamines Negative Cutoff: 06/07/2020 [facility] 500 11:45 AM LABORATORIES ng/mL INFORMATION SYSTEMS ADMINISTRATOR Barbiturates Negative Cutoff: 06/07/2020 [facility] 200 11:45 AM LABORATORIES ng/mL INFORMATION SYSTEMS ADMINISTRATOR Cocaine Negative Cutoff: 06/07/2020 [facility] 150 11:45 AM LABORATORIES ng/mL INFORMATION SYSTEMS ADMINISTRATOR Phencyclidine, Mec Negative Cutoff: 06/07/2020 [facility] 25 ng/mL 11:45 AM LABORATORIES INFORMATION SYSTEMS ADMINISTRATOR Tetrahydrocannabinol Negative Cutoff: 06/07/2020 [facility] 50 ng/mL 11:45 AM LABORATORIES INFORMATION SYSTEMS ADMINISTRATOR Comment: ADDITIONAL INFORMATIO N This report is intended for use in clini wilfred monitoring or management of patients. ??It is not inte nded for use in employment-related testing. Codeine Not Detected Cutoff: 25 ng/mL 06/07/2020 11:45 AM [facility] Comment: Tylenol 3 Zgcxrbi-6-mamy-glucuronide Not Detected Cutoff: 100 06/07/19 21 [facility] ng/mL 11:45 AM INFORMATION SYSTEMS ADMINISTRATOR LABORATORIES Comment: Metabolite of codeine Morphine Urine Not Detected Cutoff: 25 06/07/2020 11:45 [facility] ng/mL AM INFORMATION SYSTEMS ADMINISTRATOR LABORATORIES Comment: Emilia Perry, MS Contin; Also a minor metabolite (10%) of codeine and can be seen in low concentra tions (<2,000 ng/mL) with poppy seed ingestion. Dbvqzwdh-6-ijjf-glucuronide Not Detected Cutoff: 100 021 [facility] ng/mL 11:45 AM INFORMATION SYSTEMS ADMINISTRATOR LABORATORIES Comment: Metabolite of morphine 6-monoacetylmorphine Not Detected Cutoff: 25 06/07/2020 11:4 5 [facility] ng/mL AM INFORMATION SYSTEMS ADMINISTRATOR LAB[facility]ATORIES Comment: Metabolite of heroin Hydrocodone Not Detected Cutoff: 25 ng/mL 06/07/2020 11:45 A M [facility] Comment: Lortab, Rousseau, Vicodin; Also a very phoenix r metabolite of codeine and impurity (<1%) of oxycodone. Norhydrocodone Not Detected Cutoff: 06/07/2020 11:45 [facility] ng/mL AM INFORMATION SYSTEMS ADMINISTRATOR LAB[facility]ATORIES Comment: Metabolite of hydrocodone Dihydrocodeine Not Detected Cutoff: 25 06/07/2020 11:45 [facility] ng/mL AM INFORMATION SYSTEMS ADMINISTRATOR LABORATORIES Comment: Metabolite of hydrocodone Hydromorphone Not Detected Cutoff: 25 ng/mL 06/07/2020 11:45 [facility] AM INFORMATION SYSTEMS ADMINISTRATOR LABORATORIES Comment: Dilaudid, Exalgo; Also a metabolite of h ydrocodone and a minor (<5%) metabolite of morphine. Hgnrvtpaqmawy-5-quav-glucuronide Not Cutoff: 021 [facility] Detected 100 ng/mL 11:45 AM INFORMATION SYSTEMS ADMINISTRATOR LABORATORIES Comment: Metabolite of hydromorphone Oxycodone Not Detected Cutoff: 25 ng/mL 06/07/2020 11:45 AM [facility] INFORMATION SYSTEMS ADMINISTRATOR LABORATORIES Comment: Endocet, Percocet, Oxycontin Noroxycodone Not Detected Cutoff: 25 ng/mL 06/07/2020 11:45 AM [facility] INFORMATION SYSTEMS ADMINISTRATOR LABORATORIES Comment: Metabolite of oxycodone Oxymorphone Not Detected Cutoff: 25 ng/mL 06/07/2020 11:45 A M [facility] INFORMATION SYSTEMS ADMINISTRATOR LABORATORIES Comment: Numorphan, Opana; Also a metabolite of o xycodone. Qghaplbkane-6-bfqz-glucuronide Not Detected Cutoff: 2020 [facility] 100 ng/mL 11:45 AM INFORMATION SYSTEMS ADMINISTRATOR LABORATORIES Comment: Metabolite of oxymorphone and/or naloxon e (nornaloxone) Noroxymorphone Not Detected Cutoff: 25 06/07/2020 11:45 [facility] ng/mL AM INFORMATION SYSTEMS ADMINISTRATOR LABORATORIES Comment: Metabolite of oxymorphone and/or naloxon e (nornaloxone) Fentanyl Not Detected Cutoff: 2 ng/mL 06/07/2020 11:45 AM [facility] INFORMATION SYSTEMS ADMINISTRATOR LABORATORIES Comment: Actiq, Duragesic, Fentora Norfentanyl Not Detected Cutoff: 2 ng/mL 06/07/2020 11:45 AM [facility] INFORMATION SYSTEMS ADMINISTRATOR LABORATORIES Comment: Metabolite of fentanyl Meperidine Not Detected Cutoff: 25 ng/mL 06/07/2020 11:45 AM [facility] INFORMATION SYSTEMS ADMINISTRATOR LABORATORIES Comment: Demerol Normeperidine Not Detected Cutoff: 25 ng/mL 06/07/2020 11:45 [facility] INFORMATION SYSTEMS ADMINISTRATOR LABORATORIES Comment: Metabolite of meperidine Naloxone Not Detected Cutoff: 25 ng/mL 06/07/2020 11:45 AM [facility] INFORMATION SYSTEMS ADMINISTRATOR LABORATORIES Comment: Narcan Zhshfagt-0-olxz-glucuronide Present (A) Cutoff: 100 06/07/19 21 [facility] ng/mL 11:45 AM INFORMATION SYSTEMS ADMINISTRATOR LABORATORIES Comment: Metabolite of naloxone Methadone Not Detected Cutoff: 25 ng/mL 06/07/2020 11:45 AM [facility] INFORMATION SYSTEMS ADMINISTRATOR LABORATORIES Comment: Dolophine EDDP Not Detected Cutoff: 25 ng/mL 06/07/2020 11:45 AM [facility] Comment: Metabolite of methadone Propoxyphene Not Detected Cutoff: 25 ng/mL 06/07/2020 11:45 AM [facility] Comment: Darvon, Darvocet Norpropoxyphene Not Detected Cutoff: 25 06/07/2020 11:45 [facility] ng/mL AM INFORMATION SYSTEMS ADMINISTRATOR LABORATORIES Comment: Metabolite of propoxyphene Tramadol Not Detected Cutoff: 25 ng/mL 06/07/2020 11:45 AM [facility] Comment: Tradol, Ultram, Ultracet O-desmethyltramadol Not Detected Cutoff: 25 06/07/2020 11:45 [facility] ng/mL AM INFORMATION SYSTEMS ADMINISTRATOR LABORATORIES Comment: Metabolite of tramadol Tapentadol Not Detected Cutoff: 25 ng/mL 06/07/2020 11:45 AM [facility] Comment: Nucynta N-desmethyltapentadol Not Detected Cutoff: 50 06/07/2020 11: 45 [facility] ng/mL AM INFORMATION SYSTEMS ADMINISTRATOR LABORATORIES Comment: Metabolite of tapentadol Gqkbvnfqut-rssf-aynwxbwvlft Not Detected Cutoff: 100 021 [facility] ng/mL 11:45 AM INFORMATION SYSTEMS ADMINISTRATOR LABORATORIES Comment: Metabolite of tapentadol Buprenorphine Not Detected Cutoff: 5 ng/mL 06/07/2020 11:45 [facility] Comment: Buprenex, Suboxone Norbuprenorphine Present (A) Cutoff: 5 ng/mL 06/07/2020 11:4 5 [facility] INFORMATION SYSTEMS ADMINISTRATOR LABORATORIES Comment: Metabolite of buprenorphine Norbuprenorphine Present (A) Cutoff: 20 06/07/2020 11:45 [facility] glucuronide ng/mL AM INFORMATION SYSTEMS ADMINISTRATOR LABORATORIES Comment: Metabolite of buprenorphine Opioid Interpretation - 06/07/2020 11:45 A [facility] Comment: Test detected the presence of buprenorph ine metabolites (norbuprenorphine and norbuprenorphine g lucuronide) along with naloxone metabolite (esymqykr-6-yme a-glucuronide). Suspect use of buprenorphine with naloxo ne (e.g. Suboxone) within the past three days. ADDITIONAL INFORMATIO N This test was developed and its performa nce characteristics determined by [facility] in a manner co nsistent with CLIA requirements. This test has not been madeleine ared or approved by the U.S. Food and Drug Administration. Creatinine, Urine 15.4 mg/dL 06/07/2020 11:45 [facility] AM INFORMATION SYSTEMS ADMINISTRATOR LABORATORIES Specific [place], 1.003 06/07/2020 11:45 [facility] Urine AM INFORMATION SYSTEMS ADMINISTRATOR LABORATORIES pH, Urine 6.3 06/07/2020 11:45 [facility] AM INFORMATION SYSTEMS ADMINISTRATOR LABORATORIES Oxidants Negative Cutoff: 200 06/07/2020 11:45 [facility] mg/L AM INFORMATION SYSTEMS ADMINISTRATOR LABORATORIES Comment Normal 06/07/2020 11:45 [facility] INFORMATION SYSTEMS ADMINISTRATOR LABORATORIES Alprazolam Not Detected Cutoff: 10 06/07/2020 11:45 [facility] ng/mL AM INFORMATION SYSTEMS ADMINISTRATOR LAB[facility]IES Comment: Xanax Alpha-Hydroxyalprazolam UR Not Detected Cutoff: 10 [facility] ng/mL 11:45 AM INFORMATION SYSTEMS ADMINISTRATOR LAB[facility]IES Comment: Metabolite of Alprazolam Alpha-Hydroxyalprazolam Not Detected Cutoff: 50 06/07/2020 [facility] Glucuronide ng/mL 11:45 AM INFORMATION SYSTEMS ADMINISTRATOR LAB[facility]IES Comment: Metabolite of Alprazolam Chlordiazepoxide Not Detected Cutoff: 10 06/07/2020 11:45 [facility] ng/mL AM INFORMATION SYSTEMS ADMINISTRATOR LAB[facility]IES Comment: Librium Clobazam Not Detected Cutoff: 10 ng/mL 06/07/2020 11:45 AM [facility] INFORMATION SYSTEMS ADMINISTRATOR LABORATORIES Comment: Frisium, Onfi N-Desmethylclobazam Not Detected Cutoff: 200 06/07/2020 11:4 5 [facility] ng/mL AM INFORMATION SYSTEMS ADMINISTRATOR [facility]IES Comment: Metabolite of Clobazam Clonazepam Lvl Not Detected Cutoff: 10 06/07/2020 11:45 [facility] ng/mL AM INFORMATION SYSTEMS ADMINISTRATOR [facility] Comment: Klonopin, Rivotril 7-Aminoclonazepam Not Detected Cutoff: 10 06/07/2020 11:45 [facility] ng/mL AM INFORMATION SYSTEMS ADMINISTRATOR [facility]IES Comment: Metabolite of Clonazepam Diazepam UR Not Detected Cutoff: 10 06/07/2020 11:45 [facility] Quant ng/mL AM INFORMATION SYSTEMS ADMINISTRATOR [facility]IES Comment: Valium Nordiazepam Not Detected Cutoff: 10 ng/mL 06/07/2020 11:45 A M [facility] INFORMATION SYSTEMS ADMINISTRATOR LAB[facility]ATORIES Comment: Metabolite of Chlordiazepoxide, Diazepam , or Prazepam. Flunitrazepam Not Detected Cutoff: 10 ng/mL 06/07/2020 11:45 [facility] AM INFORMATION SYSTEMS ADMINISTRATOR LAB[facility]IES Comment: Rohypnol 7-Aminoflunitrazepam Not Detected Cutoff: 10 06/07/2020 11:4 5 [facility] ng/mL AM INFORMATION SYSTEMS ADMINISTRATOR [facility] Comment: Metabolite of Flunitrazepam Flurazepam Not Detected Cutoff: 10 ng/mL 06/07/2020 11:45 AM [facility] INFORMATION SYSTEMS ADMINISTRATOR LAB[facility]IES Comment: Dalmane 2- hydroxy ethyl Not Detected Cutoff: 10 06/07/2020 11:45 [facility] flurazepam ng/mL AM INFORMATION SYSTEMS ADMINISTRATOR LAB[facility]IES Comment: Metabolite of Flurazepam Lorazepam Not Detected Cutoff: 10 ng/mL 06/07/2020 11:45 AM [facility] INFORMATION SYSTEMS ADMINISTRATOR LAB[facility]IES Comment: Ativan Lorazepam Not Detected Cutoff: 50 06/07/2020 11:45 [facility] Glucuronide ng/mL AM INFORMATION SYSTEMS ADMINISTRATOR LAB[facility]IES Comment: Metabolite of Lorazepam Midazolam Not Detected Cutoff: 10 ng/mL 06/07/2020 11:45 AM [facility] INFORMATION SYSTEMS ADMINISTRATOR LAB[facility]IES Comment: Versed Alpha-Hydroxy Not Detected Cutoff: 10 06/07/2020 11:45 [facility] Midazolam ng/mL AM INFORMATION SYSTEMS ADMINISTRATOR LAB[facility]IES Comment: Metabolite of Midazolam Oxazepam Not Detected Cutoff: 10 ng/mL 06/07/2020 11:45 AM [facility] INFORMATION SYSTEMS ADMINISTRATOR LAB[facility]IES Comment: Serax; Also a metabolite of Chlordiazepo xide, Diazepam, or Temazepam. Oxazepam Not Detected Cutoff: 50 06/07/2020 11:45 [facility] Glucuronide ng/mL AM INFORMATION SYSTEMS ADMINISTRATOR LAB[facility]IES Comment: Metabolite of Oxazepam Prazepam, urine Not Detected Cutoff: 10 06/07/2020 11:45 [facility] ng/mL AM INFORMATION SYSTEMS ADMINISTRATOR LAB[facility]IES Comment: Centrax Temazepam Not Detected Cutoff: 10 ng/mL 06/07/2020 11:45 AM [facility] INFORMATION SYSTEMS ADMINISTRATOR LABORATORIES Comment: Restoril; Also a metabolite of Diazepam. Temazepam Not Detected Cutoff: 50 06/07/2020 11:45 [facility] Glucuronide ng/mL AM INFORMATION SYSTEMS ADMINISTRATOR LAB[facility] Comment: Metabolite of Temazepam Triazolam Not Detected Cutoff: 10 ng/mL 06/07/2020 11:45 AM [facility] Comment: Halcion Alpha-Hydroxy Not Detected Cutoff: 10 06/07/2020 11:45 [facility] Triazolam ng/mL AM INFORMATION SYSTEMS ADMINISTRATOR LAB[facility]IES Comment: Metabolite of Triazolam Zolpidem Not Detected Cutoff: 10 ng/mL 06/07/2020 11:45 AM [facility] Comment: Ambien Zolpidem Not Detected Cutoff: 10 06/07/2020 [facility] Jghhhs-8-Mdhfffvado acid ng/mL 11:45 AM INFORMATION SYSTEMS ADMINISTRATOR [facility] Comment: Metabolite of Zolpidem Benzodiazepine, Interp - 06/07/2020 11:45 AM INFORMATION SYSTEMS ADMINISTRATOR [facility] Comment: No benzodiazepines were detected. The ab sence of expected drug(s) and/or drug metabolite(s) may in dicate non-compliance, altered pharmacokinetics , inappropriate timing of specimen collection relative t o drug administration, diluted/adulterated urin e, or limitations of testing. ADDITIONAL INFORMATIO N This test was developed and its performa nce characteristics determined by [facility] in a manner co nsistent with CLIA requirements. This test has not been madeleine ared or approved by the U.S. Food and Drug Administration. Test Performed by: [place] [id number] Web Site Administrator: Benigno Selby M.D. Ph. D.; CLIA# [id number] List patient's Not provided 06/07/2020 11:45 AM [facility] medicaton INFORMATION SYSTEMS ADMINISTRATOR LABORATORIES Comment: ADDITIONAL INFORMATIO N Accuracy and completeness of declared me dications on reports solely dependent on information submitted by client. Specimen Anatomical Collection Method Collection Time Receive d Time (Source) Location / / Volume Laterality Urine 06/04/2020 11:39 06/04/2020 AM INFORMATION SYSTEMS ADMINISTRATOR 12:20 PM INFORMATION SYSTEMS ADMINISTRATOR Melissa Coronado DNP, PRIVATE EQUITY ASSOCIATE, BALLAST CLEANING OPERATOR LAB URINE ORDERABLES Performing Organization Address City/State/ZIP Code Phon e Number [facility] see result attachment for specific address documented in this encounter Visit Diagnoses Diagnosis Opioid use disorder, moderate, in early remission, on maintenance therapy (HCC) documented in this encounter Care Teams Emergency Services Director Relationship Specialty Start Date End Date None, Pcp PCP - General Life Insurance Actuary 02/06/19 [address] [place] [address] documented as of this encounter
--- OUTSIDE RECORDS SUMMARY | 2022-01-14 01:45 | XMS_ITS | Encounter Summary ---
:1990 Author Organization [facility] Address [address] [place] [address] Care Team Providers Name Role Phone None, Pcp Primary Care Provider Unavailable Encounter Details Date Type Department Care Team Description 05/22/2020 Lab SE Lab Opioid use disorder, moderat e, [address] in early remission, [place] [address] maintenance therapy ([facility]) [phone] Social History Tobacco Use Types Packs/Day Years [...] How often do you attend worship or christian Not asked 03/21/2020 services? Do you belong to any clubs or organizations such as Not askbreanne schilling 03/21/2020 worship groups, unions, fraternal or [...] secure housing General Yes Melissa Coronado, DNP, STAMPING PRESS OPERATOR, DOUGH MACHINE OPERATOR Note: Formatting of this note might be d ifferent from the original. - has applied for several housing lists; waiting to hear back, wants to be near family Quit using tobacco (cigarettes, Tobacco Use No Melissa Coronado, DNP, STAMPING PRESS OPERATOR, smokeless, etc) DOUGH MACHINE OPERATOR Note: Formatting of this note might be d ifferent from the original. Will use nicorette gum in case of breakt hrough craving. Will find some candy or suckers to use d uring group to occupy her hands/oral fixation documented as of this encounter Procedures Procedure Name Priority Date/Time Associated Diagnosis Comme nts CONTROLLED Routine 05/22/2020 1:39 PM Opioid use disorder, R esults for this SUBSTANCES TRIM INSTALLER moderate, in early procedure are in MONITORING PANEL, remission, on the resul URINE maintenance therapy section. (HCC) documented in this encounter Results (ABNORMAL) Controlled Substance Monitoring Panel, Urine (05/22/2020 1:39 PM TRIM INSTALLER) Component Value Ref Test Analysis Performed At [facility] Range Method Time Signature Amphetamines Negative Cutoff: 05/24/2020 [facility] 500 1:22 PM [facility] ng/mL Barbiturates Negative Cutoff: 05/24/2020 [facility] 200 1:22 PM [facility] ng/mL Cocaine Negative Cutoff: 05/24/2020 [facility] 150 1:22 PM [facility] ng/mL Phencyclidine, Mec Negative Cutoff: 05/24/2020 [facility] 25 ng/mL 1:22 PM [facility] Tetrahydrocannabinol Negative Cutoff: 05/24/2020 [facility] 50 ng/mL 1:22 PM [facility] Comment: ADDITIONAL INFORMATIO N This report is intended for use in clini wilfred monitoring or management of patients. ??It is not inte nded for use in employment-related testing. Codeine Not Detected Cutoff: 25 ng/mL 05/24/2020 1:22 PM [facility] Comment: Tylenol 3 Emmibol-3-ijmi-glucuronide Not Detected Cutoff: 100 05/24/19 21 [facility] ng/mL 1:22 PM [facility] Comment: Metabolite of codeine Morphine Urine Not Detected Cutoff: 25 05/24/2020 1:22 PM [facility] ng/mL [facility] Comment: Emilia Perry, MS Contin; Also a minor metabolite (10%) of codeine and can be seen in low concentra tions (<2,000 ng/mL) with poppy seed ingestion. Etbrxpoq-7-rotr-glucuronide Not Detected Cutoff: 100 021 [facility] ng/mL 1:22 PM [facility] Comment: Metabolite of morphine 6-monoacetylmorphine Not Detected Cutoff: 25 05/24/2020 1:22 [facility] ng/mL PM [facility] Comment: Metabolite of heroin Hydrocodone Not Detected Cutoff: 25 ng/mL 05/24/2020 1:22 PM [facility] Comment: Lortab, [place], Vicodin; Also a very phoenix r metabolite of codeine and impurity (<1%) of oxycodone. Norhydrocodone Not Detected Cutoff: 25 05/24/2020 1:22 PM [facility] ng/mL [facility] Comment: Metabolite of hydrocodone Dihydrocodeine Not Detected Cutoff: 25 05/24/2020 1:22 PM [facility] ng/mL [facility] Comment: Metabolite of hydrocodone Hydromorphone Not Detected Cutoff: 25 ng/mL 05/24/2020 1:22 PM [facility] Comment: Dilaudid, Exalgo; Also a metabolite of h ydrocodone and a minor (<5%) metabolite of morphine. Nbzbjttxhmumn-0-qntx-glucuronide Not Cutoff: 021 [facility] Detected 100 ng/mL 1:22 PM [facility] Comment: Metabolite of hydromorphone Oxycodone Not Detected Cutoff: 25 ng/mL 05/24/2020 1:22 PM [facility] Comment: Endocet, Percocet, Oxycontin Noroxycodone Not Detected Cutoff: 25 ng/mL 05/24/2020 1:22 P [facility] Comment: Metabolite of oxycodone Oxymorphone Not Detected Cutoff: 25 ng/mL 05/24/2020 1:22 PM [facility] Comment: Numorphan, Opana; Also a metabolite of o xycodone. Letawdurhlx-8-yerg-glucuronide Not Detected Cutoff: 2020 [facility] 100 ng/mL 1:22 PM [facility] Comment: Metabolite of oxymorphone and/or naloxon e (nornaloxone) Noroxymorphone Not Detected Cutoff: 25 05/24/2020 1:22 PM [facility] ng/mL [facility] Comment: Metabolite of oxymorphone and/or naloxon e (nornaloxone) Fentanyl Not Detected Cutoff: 2 ng/mL 05/24/2020 1:22 PM [facility] Comment: Actiq, Duragesic, Fentora Norfentanyl Not Detected Cutoff: 2 ng/mL 05/24/2020 1:22 PM [facility] Comment: Metabolite of fentanyl Meperidine Not Detected Cutoff: 25 ng/mL 05/24/2020 1:22 PM [facility] Comment: Demerol Normeperidine Not Detected Cutoff: 25 ng/mL 05/24/2020 1:22 PM [facility] Comment: Metabolite of meperidine Naloxone Not Detected Cutoff: 25 ng/mL 05/24/2020 1:22 PM [facility] Comment: Narcan Twidqwlj-4-yrii-glucuronide Not Detected Cutoff: 100 021 [facility] ng/mL 1:22 PM [facility] Comment: Metabolite of naloxone Methadone Not Detected Cutoff: 25 ng/mL 05/24/2020 1:22 [facility] Comment: Dolophine EDDP Not Detected Cutoff: 25 ng/mL 05/24/2020 1:[address] [facility] Comment: Metabolite of methadone Propoxyphene Not Detected Cutoff: 25 ng/mL 05/24/2020 1:22 P M [facility] Comment: Darvon, Darvocet Norpropoxyphene Not Detected Cutoff: 25 05/24/2020 1:22 PM [facility] ng/mL [facility] Comment: Metabolite of propoxyphene Tramadol Not Detected Cutoff: 25 ng/mL 05/24/2020 1:22 PM [facility] Comment: Tradol, Ultram, Ultracet O-desmethyltramadol Not Detected Cutoff: 25 05/24/2020 1:22 [facility] ng/mL PM [facility] Comment: Metabolite of tramadol Tapentadol Not Detected Cutoff: 25 ng/mL 05/24/2020 1:22 PM [facility] Comment: Nucynta N-desmethyltapentadol Not Detected Cutoff: 50 05/24/2020 1:2 2 [facility] ng/mL PM [facility] Comment: Metabolite of tapentadol Xxfhudyfnn-tihy-wnspxaqhwdr Not Detected Cutoff: 100 021 [facility] ng/mL 1:22 PM [facility] Comment: Metabolite of tapentadol Buprenorphine Not Detected Cutoff: 5 ng/mL 05/24/2020 1:22 P [facility] Comment: Buprenex, Suboxone Norbuprenorphine Present (A) Cutoff: 5 ng/mL 05/24/2020 1:22 PM [facility] Comment: Metabolite of buprenorphine Norbuprenorphine Present (A) Cutoff: 20 05/24/2020 1:22 [facility] glucuronide ng/mL PM [facility] Comment: Metabolite of buprenorphine Opioid Interpretation - 05/24/2020 1:22 PM TRIM INSTALLER [facility] Comment: Test detected the presence of norbupreno rphine and norbuprenorphine glucuronide which are m etabolites of buprenorphine. Suspect use of buprenorph ine within the past three days. ADDITIONAL INFORMATIO N This test was developed and its performa nce characteristics determined by [facility] in a manner co nsistent with CLIA requirements. This test has not been madeleine ared or approved by the U.S. Food and Drug Administration. Creatinine, Urine 84.1 mg/dL 05/24/2020 1:22 [facility] PM [facility] Specific [place], 1.013 05/24/2020 1:22 [facility] Urine PM [facility] pH, Urine 7.0 05/24/2020 1:22 [facility] PM [facility] Oxidants Negative Cutoff: 200 05/24/2020 1:22 [facility] mg/L PM [facility] Comment Normal 05/24/2020 1:22 [facility] PM [facility] Alprazolam Not Detected Cutoff: 10 05/24/2020 1:22 [facility] ng/mL PM [facility] Comment: Xanax Alpha-Hydroxyalprazolam UR Not Detected Cutoff: 10 [facility] ng/mL 1:22 PM [facility] Comment: Metabolite of Alprazolam Alpha-Hydroxyalprazolam Not Detected Cutoff: 50 05/24/2020 [facility] Glucuron[facility] ng/mL 1:22 PM [facility] Comment: Metabolite of Alprazolam Chlordiazepoxide Not Detected Cutoff: 05/24/2020 1:22 [facility] ng/mL PM [facility] Comment: Librium Clobazam Not Detected Cutoff: 10 ng/mL 05/24/2020 1:22 PM [facility] Comment: Frisium, Onfi N-Desmethylclobazam Not Detected Cutoff: 200 05/24/2020 1:22 [facility] ng/mL PM [facility] Comment: Metabolite of Clobazam Clonazepam Lvl Not Detected Cutoff: 05/24/2020 1:22 PM [facility] ng/mL [facility] Comment: Klonopin, Rivotril 7-Aminoclonazepam Not Detected Cutoff: 05/24/2020 1:22 [facility] ng/mL PM [facility] Comment: Metabolite of Clonazepam Diazepam UR Not Detected Cutoff: 05/24/2020 1:22 PM [facility] Quant ng/mL [facility] Comment: Valium Nordiazepam Not Detected Cutoff: 10 ng/mL 05/24/2020 1:22 PM [facility] Comment: Metabolite of Chlordiazepoxide, Diazepam , or Prazepam. Flunitrazepam Not Detected Cutoff: 10 ng/mL 05/24/2020 1:22 PM [facility] Comment: Rohypnol 7-Aminoflunitrazepam Not Detected Cutoff: 10 05/24/2020 1:22 [facility] ng/mL PM [facility] Comment: Metabolite of Flunitrazepam Flurazepam Not Detected Cutoff: 10 ng/mL 05/24/2020 1:22 PM [facility] Comment: Dalmane 2- hydroxy ethyl Not Detected Cutoff: 10 05/24/2020 1:22 [facility] flurazepam ng/mL PM [facility] Comment: Metabolite of Flurazepam Lorazepam Not Detected Cutoff: 10 ng/mL 05/24/2020 1:22 PM [facility] Comment: Ativan Lorazepam Not Detected Cutoff: 50 05/24/2020 1:22 [facility] Glucuronide ng/mL PM [facility] Comment: Metabolite of Lorazepam Midazolam Not Detected Cutoff: 10 ng/mL 05/24/2020 1:22 PM [facility] Comment: Versed Alpha-Hydroxy Not Detected Cutoff: 10 05/24/2020 1:22 [facility] Midazolam ng/mL PM [facility] Comment: Metabolite of Midazolam Oxazepam Not Detected Cutoff: 10 ng/mL 05/24/2020 1:22 PM [facility] Comment: Serax; Also a metabolite of Chlordiazepo xide, Diazepam, or Temazepam. Oxazepam Not Detected Cutoff: 50 05/24/2020 1:22 [facility] Glucuronide ng/mL PM [facility] Comment: Metabolite of Oxazepam Prazepam, urine Not Detected Cutoff: 10 05/24/2020 1:22 PM [facility] ng/mL [facility] Comment: Centrax Temazepam Not Detected Cutoff: 10 ng/mL 05/24/2020 1:22 PM [facility] Comment: Restoril; Also a metabolite of Diazepam. Temazepam Not Detected Cutoff: 50 05/24/2020 1:22 [facility] Glucuronide ng/mL PM [facility] Comment: Metabolite of Temazepam Triazolam Not Detected Cutoff: 10 ng/mL 05/24/2020 1:22 PM [facility] Comment: Halcion Alpha-Hydroxy Not Detected Cutoff: 10 05/24/2020 1:22 [facility] Triazolam ng/mL PM [facility] Comment: Metabolite of Triazolam Zolpidem Not Detected Cutoff: 10 ng/mL 05/24/2020 1:22 PM [facility] Comment: Ambgunner Zolpidem Not Detected Cutoff: 10 05/24/2020 1:22 [facility] Bzussy-0-Sjviuiraun acid ng/mL PM [facility]ST[facility] Comment: Metabolite of Zolpidem Benzodiazepine, Interp - 05/24/2020 1:22 P M [facility] Comment: No benzodiazepines were detected. The ab sence of expected drug(s) and/or drug metabolite(s) may in dicate non-compliance, altered pharmacokinetics , inappropriate timing of specimen collection relative t o drug administration, diluted/adulterated urin e, or limitations of testing. ADDITIONAL INFORMATIO N This test was developed and its performa nce characteristics determined by [facility] in a manner co nsistent with CLIA requirements. This test has not been madeleine ared or approved by the U.S. Food and Drug Administration. Test Performed by: [place] [id number] [phone] Product Evangelist: Benigno Selby M.D. Ph. D.; CLIA# [id number] List patient's Not provided 05/24/2020 1:22 PM [facility] Comment: ADDITIONAL INFORMATIO N Accuracy and completeness of declared me dications on reports solely dependent on information submitted by client. Specimen Anatomical Collection Method Collection Time Receive d Time (Source) Location / / Volume Laterality Urine 05/22/2020 1:39 PM 1 1:50 TRIM INSTALLER PM TRIM INSTALLER Melissa Coronado DNP, STAMPING PRESS OPERATOR, DOUGH MACHINE OPERATOR LAB URINE ORDERABLES Performing Organization Address City/State/ZIP Code Phon e Number [facility] see result attachment for specific address documented in this encounter Visit Diagnoses Diagnosis Opioid use disorder, moderate, in early remission, on maintenance therapy (HCC) documented in this encounter Care Teams Mba Intern Relationship Specialty Start Date End Date None, Pcp PCP - General Community Organizer 02/06/19 [address] [place] [address] documented as of this encounter
--- OUTSIDE RECORDS SUMMARY | 2022-01-14 01:45 | XMS_ITS | Encounter Summary ---
:1990 Author Organization [facility] Address [address] [place] [address] Care Team Providers Name Role Phone None, Pcp Primary Care Provider Unavailable Encounter Details Date Type Department Care Team Description 06/11/2020 Lab [facility] Opioid use disorder, moderat e, [address] [facility] in early remission, [place] [address] maintenance therapy ([facility]) [phone] Social History Tobacco Use Types Packs/Day Years [...] 03/21/2020 relatives? How often do you attend samaritan or taoism Not asked 03/21/2020 services? Do you belong to any clubs or organizations such as rAgelia schilling 03/21/2020 samaritan groups, unions, fraternal or athletic groups, or [...] secure housing General Yes Melissa Coronado, DNP, CONTINUOUS IMPROVEMENT LEAD, EVENT TECHNICIAN Note: Formatting of this note might be d ifferent from the original. - has applied for several housing lists; waiting to hear back, wants to be near family Quit using tobacco (cigarettes, Tobacco Use No Melissa Coronado, DNP, CONTINUOUS IMPROVEMENT LEAD, smokeless, etc) EVENT TECHNICIAN Note: Formatting of this note might be d ifferent from the original. Will use nicorette gum in case of breakt hrough craving. Will find some candy or suckers to use d uring group to occupy her hands/oral fixation documented as of this encounter Procedures Procedure Name Priority Date/Time Associated Comments Diagnosis BUPRENORPHINE Routine 06/11/2020 3:00 PM Opioid use Results for this CONFIRMATION MANUFACTURING SUPPORT ENGINEER disorder, moderate, procedur e are in in early remission, the resu lts on maintenance section. therapy (HCC) RAPID DRUG SCREEN, Routine 06/11/2020 3:00 PM Opioid use Res ults for this URINE MANUFACTURING SUPPORT ENGINEER disorder, moderate, procedur e are in in early remission, the resu lts on maintenance section. therapy (HCC) documented in this encounter Results Buprenorphine conf. (06/11/2020 3:00 PM MANUFACTURING SUPPORT ENGINEER) [facility] gist Method Time Signature Buprenorphine see below 06/16/2020 [facility] 9:46 PM MANUFACTURING SUPPORT ENGINEER [facility] Comment: See scanned [facility] Report. Specimen Anatomical Collection Method Collection Time Receive d Time (Source) Location / / Volume Laterality 06/11/2020 3:00 PM 4:04 MANUFACTURING SUPPORT ENGINEER PM MANUFACTURING SUPPORT ENGINEER Zainab Rm MD LAB URINE ORDERABLES Performing Organization Address City/State/ZIP Code Phon e Number [facility] [address] [place] [address] (ABNORMAL) Rapid drug screen, urine (06/11/2020 3:00 PM [facility]) athologist Signature Rapid Urine ----- 06/11/2020 [facility] Drug Screen 3:34 PM MANUFACTURING SUPPORT ENGINEER [facility]ENTER [facility] Comment: This is a screening test. ??Positive res ults should be considered presumptive and are sent to [facility] for confirmation. This test is not for legal purposes - on medical. Tetrahydrocannabinol NOT DETECTED Not Detected 06/11/2020 6: 38 [facility] Phencyclidine, Mec NOT DETECTED Not Detected 06/11/2020 6:38 [facility] Cocaine NOT DETECTED Not Detected 06/11/2020 6:38 [facility] MANUFACTURING SUPPORT ENGINEER [facility] Methamphetamine NOT DETECTED Not Detected 06/11/2020 6:38 [facility] MANUFA[facility]URING SUPPORT [facility] Opiates NOT DETECTED Not Detected 06/11/2020 6:38 [facility] MANUFACTURING SUPPORT ENGINEER [facility]ENTER [facility] Amphetamines NOT DETECTED Not Detected 06/11/2020 6:38 [facility] MANUFACTURING SUPPORT ENGINEER [facility] Benzodiazepines NOT DETECTED Not Detected 06/11/2020 6:38 [facility] TCA, Urine NOT DETECTED Not Detected 06/11/2020 6:38 [facility] MANUFACTURING SUPPORT ENGINEER [facility] Methadone NOT DETECTED Not Detected 06/11/2020 6:38 [facility] Barbiturates NOT DETECTED Not Detected 06/11/2020 6:38 [facility] MANUFACTURING SUPPORT ENGINEER [facility] Oxycodone NOT DETECTED Not Detected 06/11/2020 6:38 [facility] Propoxyphene NOT DETECTED Not Detected 06/11/2020 6:38 [facility] MANUFACTURING SUPPORT ENGINEER [facility]ENTER [facility] Buprenorphine DETECTED (A) Not Detected 06/11/2020 6:38 [facility] MANUFACTURING SUPPORT ENGINEER [facility]ENTER [facility] Comment: Sent to [facility] for GC/MS confirmation. Detectable Levels ----- 06/11/2020 3:34 PM MANUFACTURING SUPPORT ENGINEER [facility] Comment: Amphetamines ?500 ng/ mL [...] Location / / Volume Laterality Urine (Urine, 06/11/2020 3:00 PM 06/12/19 21 4:04 Clean Catch) MANUFACTURING SUPPORT ENGINEER PM MANUFACTURING SUPPORT ENGINEER Zainab Rm MD LAB URINE ORDERABLES Performing Organization Address City/State/ZIP Code Phon e Number [facility] [address] [place] [phone] documented in this encounter Visit Diagnoses Diagnosis Opioid use disorder, moderate, in early remission, on maintenance therapy (HCC) documented in this encounter Care Teams Peoplesoft Crm Developer Relationship Specialty Start Date End Date None, Pcp PCP - General Paid Intern 02/06/19 [address] [place] [address] documented as of this encounter
--- OUTSIDE RECORDS SUMMARY | 2022-01-14 01:45 | XMS_ITS | Encounter Summary ---
:1990 Author Organization [facility] Address [address] [place] [address] Care Team Providers Name Role Phone None, Pcp Primary Care Provider Unavailable Reason for Visit Reason Comments MAT Clinic Follow Up Encounter Details Date Type Department Care Team Description 05/22/2020 Office Visit SE MEDICATION Melissa Coronado Opioid use disorder, moderate, in early remission, on maintenance therapy (HCC) (Primary Dx); ASSISTED TREATMENT Jody., DNP, FLAVORING OIL FILTERER, VOLUNTEER RECRUITER Cigarette nicotine dependence without co mplication [address] [facility] [address] [place] [address] [place], [place] [phone] Social History Tobacco Use Types Packs/Day Years [...] How often do you attend holiness or protestant Not asked 03/21/2020 services? Do [...] Sign Reading Time Taken Comments Blood Pressure 129/69 05/22/2020 1:43 PM EMR SPECIALIST Pulse 82 05/22/2020 1:43 PM EMR SPECIALIST Temperature 36.6 ??C (97.9 ??F) 05/22/2020 1:43 PM EMR SPECIALIST Respiratory Rate - - Oxygen Saturation 99% 05/22/2020 1:43 PM EMR SPECIALIST Inhaled Oxygen Concentration - - Weight - - Height - - Body Mass Index - - documented in this encounter Patient Instructions Patient InstructionsMelissa Coronado DNP, APRN, MIK - 05/22/2020 1:30 PM EMR SPECIALIST Continue Subutex 8 mg and 2 mg twice daily. Start buproprion and quit vapinig Follow up with Melissa on , 06/05/2020, with lab prior. SPECIALIST documented in this encounter Progress Notes Melissa Coronado DNP, APRN, MIK - 05/22/2020 1:30 PM CST MAT Clinic Follow Up Note Discussion Date: 05/22/2020 2:44 PM CHIEF COMPLAINT: Anjali presents for MAT Clinic follow up visit for management of opioid use disorder. Last visit: 05/08/2020, 20 gm daily going well She has been taking Suboxone as prescribed: Yes Current total daily dose is 20 mg Suboxone film/tab count is within range: Yes Stores Suboxone securely: Yes, has lock box Used any mood altering drugs since last visit: No Cravings for narcotics: No Suboxone side effects: No Urine Toxicology: awaiting results Ms. Anjali Hoang is a 30-year-old female, G 3 P 1011 at 20w1d with best Estimated Date of Delivery: 10/04/20, who presents to the MAT clinic for Subutex follow-up. Last OB appointment was 04/23 [address]Dr. Astorga. Perinatologist consultation completed 05/[address] Shea revealed low-lying placenta, will reassess to see if it self corrects. If not, may need planned due to increased risk of bleeding with vaginal delivery. Patient has been taking 10 mg Subutex twice a day which has been going well. She denies any illicit drug use. Last visit she requested nicotine gum to help her with smoking cessation, however this has not been helping. She is continuing to use nicotine via vaping all day. Together we reviewed ACOG's 2017 recommendations for nicotine cessation during and discussed the risks and benefits of continued nicotine use versus pharmacologic aids for smoking cessation. Discussed risks to the fetus with ongoing vaping versus potential risks of bupropion. Systematic literature reviews of 18 studies indicate no associated risks in terms of low birthweight, premature , or malformation/anomaly. Additionally, bupropion during has shown no ill effects. She would like to try bupropion and her efforts to abstain from vaping. She will also discuss this with her OB team. She is currently residing at [facility]. She has her own car and is free to come and go. She is allowed visitation with her 6-year-old son who currently resides with her grandmother. She is considering breaking it off with her babies father who she says is not in a good place and is not demonstrating any change. This is a difficult decision, but one she feels would be best for her. She is very motivated and fully engaged in her recovery programming at [facility]. She enjoysher counselor and is excited to learn every day. We also discussed her previous experience with depression which led to her eventual relapse on substances. She understands the period is a very vulnerable time for her and she is taking steps to mentally and emotionally prepare for this. She has a therapist lined up already and may even start to see her prior to delivery, which I encouraged her to do. Overall, she is doing very well, and continues to establish a healthy support system for herself. [facility] Pain: none Mood: Hopeful and excited to move into sober living, looking forward to spending the weekend with her son, anxiety is high but she uses healthy distractions Sleep: fair Appetite: normal, no concerns Employment status changes: not working now, in residential treatment Housing: lives [facility]; [facility] tomorrow [facility] [address] [facility] with [facility]. Current life stressors: Considering breaking it off with her child's father Daily Functioning/ADLs: no concerns or changes Relationships/Social Support: friends, family Recovery Activities: in residential treatment currently ASSESSMENT AND FOLLOW UP PLAN: Opioid use disorder, moderate, in early remission, on maintenance therapy (HCC) It was a pleasure to visit with Ms. Hoang. She is maintained at stable dose of 20 mg Subutex daily. Cravings have subsided with the dose increase. Patient is currently 20 weeks , experiencing heartburn, feeling baby movements regularly, has OB appointments every month. Concerns: nicotine dependence; emotional health Last UDS results: as expected Today's Plan: Continue Subutex 20 mg daily with follow-up in 2 weeks Continue with MAT Clinic Treatment Program and plan of care. Patient Instructions Continue Subutex 8 mg and 2 mg twice daily. Start buproprion and quit vapinig Follow up with Melissa on , 06/05/2020, with lab prior. NOTE: Pharmacy called stating she had exceeded her limit for 2-0.5 mg films. Only 1 week of the 2-0.5 mg films was provided. Patient will need another week supply before her appointment on 06/05. Patient goals: Goals ??? Quit using tobacco (cigarettes, smokeless, etc) Started bupropion 05/22, with plans to discontinue vaping. Will use nicorette gum in case of breakthrough craving. Will find some candy or suckers to use during group to occupy her hands/oral fixation ??? secure housing (pt-stated) - would like to apply for [facility] in the future to secure permament housing for her and her child Total time spent with patient was 28 minutes, greater than 50% of which was counseling/coordination of care, which included review of symptoms, education on medications and side effects, and treatment planning. Melissa Coronado DNP, APRN, MIK SPECIALIST documented in this encounter Miscellaneous Notes Assessment & Plan Note - Melissa Coronado DNP, APRN, CNP - 05/22/2020 1:44 PM CSTAssociated Problem(s): Opioid use disorder, moderate, in early remission, on maintenance therapy (HCC) It was a pleasure to visit with Ms. Hoang. She is maintained at stable dose of 20 mg Subutex daily. Cravings have subsided with the dose increase. Patient is currently 20 weeks , experiencing heartburn, feeling baby movements regularly, has OB appointments every month. Concerns: nicotine dependence; emotional health Last UDS results: as expected Today's Plan: Continue Subutex 20 mg daily with follow-up in 2 weeks SPECIALIST documented in this encounter Plan of Treatment Not on filedocumented as of this encounter Goals Goal Patient Goal Associated Recent Patient-Stated? Author Type Problems Progress secure housing General Yes Melissa Coronado DNP, APRN, MIK Note: Formatting of this note might be d ifferent from the original. - has applied for several housing lists; waiting to hear back, wants to be near family Quit using tobacco (cigarettes, Tobacco Use No Melissa Coronado DNP, APRN, smokeless, etc) MIK Note: Formatting of this note might be d ifferent from the original. Will use nicorette gum in case of breakt hrough craving. Will find some candy or suckers to use d uring group to occupy her hands/oral fixation documented as of this encounter Results (ABNORMAL) Controlled Substance Monitoring Panel, Urine (06/04/2020 11:39 AM EMR SPECIALIST) Component Value Ref Test Analysis Performed At [facility] Method Time Signature Amphetamines Negative Cutoff: 06/07/2020 [facility] 500 11:45 AM LABORATORIES ng/mL EMR SPECIALIST Barbiturates Negative Cutoff: 06/07/2020 [facility] 200 11:45 AM LABORATORIES ng/mL EMR SPECIALIST Cocaine Negative Cutoff: 06/07/2020 [facility] 150 11:45 AM LABORATORIES ng/mL EMR SPECIALIST Phencyclidine, Mec Negative Cutoff: 06/07/2020 [facility] 25 ng/mL 11:45 AM LABORATORIES EMR SPECIALIST Tetrahydrocannabinol Negative Cutoff: 06/07/2020 [facility] 50 ng/mL 11:45 AM LABORATORIES EMR SPECIALIST Comment: ADDITIONAL INFORMATIO N This report is intended for use in clini wilfred monitoring or management of patients. ??It is not inte nded for use in employment-related testing. Codeine Not Detected Cutoff: 25 ng/mL 06/07/2020 11:45 AM [facility] Comment: Tylenol 3 Hsvcsle-5-vomn-glucuronide Not Detected Cutoff: 100 06/07/19 21 [facility] ng/mL 11:45 AM EMR SPECIALIST LABORATORIES Comment: Metabolite of codeine Morphine Urine Not Detected Cutoff: 25 06/07/2020 11:45 [facility] ng/mL AM EMR SPECIALIST [facility] Comment: Emilia Perry, MS Contin; Also a minor metabolite (10%) of codeine and can be seen in low concentra tions (<2,000 ng/mL) with poppy seed ingestion. Uxngupcd-9-fczv-glucuronide Not Detected Cutoff: 100 021 [facility] ng/mL 11:45 AM [facility] Comment: Metabolite of morphine 6-monoacetylmorphine Not Detected Cutoff: 25 06/07/2020 11:4 5 [facility] ng/mL AM [facility] Comment: Metabolite of heroin Hydrocodone Not Detected Cutoff: 25 ng/mL 06/07/2020 11:45 A M [facility] Comment: Lortab, Selma, Vicodin; Also a very phoenix r metabolite of codeine and impurity (<1%) of oxycodone. Norhydrocodone Not Detected Cutoff: 25 06/07/2020 11:45 [facility] ng/mL AM E[facility] SPECIALIST [facility] Comment: Metabolite of hydrocodone Dihydrocodeine Not Detected Cutoff: 25 06/07/2020 11:45 [facility] ng/mL AM E[facility] SPECIALIST [facility] Comment: Metabolite of hydrocodone Hydromorphone Not Detected Cutoff: 25 ng/mL 06/07/2020 11:45 [facility] Comment: Dilaudid, Exalgo; Also a metabolite of h ydrocodone and a minor (<5%) metabolite of morphine. Dkevvyesmqfah-8-bexn-glucuronide Not Cutoff: 021 [facility] Detected 100 ng/mL 11:45 AM [facility] Comment: Metabolite of hydromorphone Oxycodone Not Detected Cutoff: 25 ng/mL 06/07/2020 11:45 AM [facility] SPECIAL[facility] Comment: Endocet, Percocet, Oxycontin Noroxycodone Not Detected Cutoff: 25 ng/mL 06/07/2020 11:45 AM [facility] SPECIAL[facility] Comment: Metabolite of oxycodone Oxymorphone Not Detected Cutoff: 25 ng/mL 06/07/2020 11:45 A M [facility] Comment: Numorphan, Opana; Also a metabolite of o xycodone. Vdvdqotaeth-9-orbe-glucuronide Not Detected Cutoff: 2020 [facility] 100 ng/mL 11:45 AM EMR SPECIALIST LAB[facility]IES Comment: Metabolite of oxymorphone and/or naloxon e (nornaloxone) Noroxymorphone Not Detected Cutoff: 25 06/07/2020 11:45 [facility] ng/mL AM E[facility] SPECIALIST [facility] Comment: Metabolite of oxymorphone and/or naloxon e (nornaloxone) Fentanyl Not Detected Cutoff: 2 ng/mL 06/07/2020 11:45 AM [facility] EMR SPECIALIST LABORATORIES Comment: Actiq, Duragesic, Fentora Norfentanyl Not Detected Cutoff: 2 ng/mL 06/07/2020 11:45 AM [facility] EMR SPECIAL[facility] Comment: Metabolite of fentanyl Meperidine Not Detected Cutoff: 25 ng/mL 06/07/2020 11:45 AM [facility] Comment: Demerol Normeperidine Not Detected Cutoff: 25 ng/mL 06/07/2020 11:45 [facility] Comment: Metabolite of meperidine Naloxone Not Detected Cutoff: 25 ng/mL 06/07/2020 11:45 AM [facility] SPECIAL[facility] Comment: Narcan Foyxbaow-2-cvwk-glucuronide Present (A) Cutoff: 100 06/07/19 21 [facility] ng/mL 11:45 AM E[facility] SPECIAL[facility] Comment: Metabolite of naloxone Methadone Not Detected Cutoff: 25 ng/mL 06/07/2020 11:45 AM [facility] Comment: Dolophine EDDP Not Detected Cutoff: 25 ng/mL 06/07/2020 11:45 AM [facility] Comment: Metabolite of methadone Propoxyphene Not Detected Cutoff: 25 ng/mL 06/07/2020 11:45 AM [facility] Comment: Darvon, Darvocet Norpropoxyphene Not Detected Cutoff: 25 06/07/2020 11:45 [facility] ng/mL AM [facility] Comment: Metabolite of propoxyphene Tramadol Not Detected Cutoff: 25 ng/mL 06/07/2020 11:45 AM [facility] Comment: Tradol, Ultram, Ultracet O-desmethyltramadol Not Detected Cutoff: 25 06/07/2020 11:45 [facility] ng/mL AM E[facility] Comment: Metabolite of tramadol Tapentadol Not Detected Cutoff: 25 ng/mL 06/07/2020 11:45 AM [facility] Comment: Nucynta N-desmethyltapentadol Not Detected Cutoff: 50 06/07/2020 11: 45 [facility] ng/mL AM EMR SPECIALIST [facility] Comment: Metabolite of tapentadol Vlkksiehvj-czrn-dldmoltmafz Not Detected Cutoff: 100 021 [facility] ng/mL 11:45 AM EMR SPECIALIST LAB[facility] Comment: Metabolite of tapentadol Buprenorphine Not Detected Cutoff: 5 ng/mL 06/07/2020 11:45 [facility] Comment: Buprenex, Suboxone Norbuprenorphine Present (A) Cutoff: 5 ng/mL 06/07/2020 11:4 5 [facility] SPECIAL[facility] Comment: Metabolite of buprenorphine Norbuprenorphine Present (A) Cutoff: 20 06/07/2020 11:45 [facility] glucuronide ng/mL AM EMR SPECIALIST LAB[facility]IES Comment: Metabolite of buprenorphine Opioid Interpretation - 06/07/2020 11:45 A [facility] Comment: Test detected the presence of buprenorph ine metabolites (norbuprenorphine and norbuprenorphine g lucuronide) along with naloxone metabolite (ufommoqj-4-zsu a-glucuronide). Suspect use of buprenorphine with naloxo ne (e.g. Suboxone) within the past three days. ADDITIONAL INFORMATIO N This test was developed and its performa nce characteristics determined by [facility] in a manner co nsistent with CLIA requirements. This test has not been madeleine ared or approved by the U.S. Food and Drug Administration. Creatinine, Urine 15.4 mg/dL 06/07/2020 11:45 [facility] AM EMR SPECIALIST LABORATORIES Specific [place], 1.003 06/07/2020 11:45 [facility] Urine AM EMR SPECIALIST LAB[facility]ATORIES pH, Urine 6.3 06/07/2020 11:45 [facility] Oxidants Negative Cutoff: 200 06/07/2020 11:45 [facility] mg/L AM [facility] Comment Normal 06/07/2020 11:45 [facility] Alprazolam Not Detected Cutoff: 10 06/07/2020 11:45 [facility] ng/mL AM [facility] Comment: Xanax Alpha-Hydroxyalprazolam UR Not Detected Cutoff: 10 [facility] ng/mL 11:45 AM [facility] Comment: Metabolite of Alprazolam Alpha-Hydroxyalprazolam Not Detected Cutoff: 50 06/07/2020 [facility] Glucuronide ng/mL 11:45 AM [facility] Comment: Metabolite of Alprazolam Chlordiazepoxide Not Detected Cutoff: 10 06/07/2020 11:45 [facility] ng/mL AM [facility] Comment: Librium Clobazam Not Detected Cutoff: 10 ng/mL 06/07/2020 11:45 AM [facility] Comment: Frisabinaum, Onfi N-Desmethylclobazam Not Detected Cutoff: 200 06/07/2020 11:4 5 [facility] ng/mL AM [facility] Comment: Metabolite of Clobazam Clonazepam Lvl Not Detected Cutoff: 10 06/07/2020 11:45 [facility] ng/mL AM [facility] Comment: Klonopin, Rivotril 7-Aminoclonazepam Not Detected Cutoff: 10 06/07/2020 11:45 [facility] ng/mL AM [facility] Comment: Metabolite of Clonazepam Diazepam UR Not Detected Cutoff: 10 06/07/2020 11:45 [facility] Quant ng/mL AM [facility] Comment: Valium Nordiazepam Not Detected Cutoff: 10 ng/mL 06/07/2020 11:45 A M [facility] Comment: Metabolite of Chlordiazepoxide, Diazepam , or Prazepam. Flunitrazepam Not Detected Cutoff: 10 ng/mL 06/07/2020 11:45 [facility] AM [facility] Comment: Rohypnol 7-Aminoflunitrazepam Not Detected Cutoff: 10 06/07/2020 11:4 5 [facility] ng/mL AM [facility] Comment: Metabolite of Flunitrazepam Flurazepam Not Detected Cutoff: 10 ng/mL 06/07/2020 11:45 AM [facility] Comment: Dalmane 2- hydroxy ethyl Not Detected Cutoff: 10 06/07/2020 11:45 [facility] flurazepam ng/mL AM [facility] Comment: Metabolite of Flurazepam Lorazepam Not Detected Cutoff: 10 ng/mL 06/07/2020 11:45 AM [facility] Comment: Ativan Lorazepam Not Detected Cutoff: 50 06/07/2020 11:45 [facility] Glucuronide ng/mL AM [facility] Comment: Metabolite of Lorazepam Midazolam Not Detected Cutoff: 10 ng/mL 06/07/2020 11:45 AM [facility] Comment: Versed Alpha-Hydroxy Not Detected Cutoff: 10 06/07/2020 11:45 [facility] Midazolam ng/mL AM [facility] Comment: Metabolite of Midazolam Oxazepam Not Detected Cutoff: 10 ng/mL 06/07/2020 11:45 AM [facility] Comment: Serax; Also a metabolite of Chlordiazepo xide, Diazepam, or Temazepam. Oxazepam Not Detected Cutoff: 50 06/07/2020 11:45 [facility] Glucuron[facility] ng/mL AM [facility] Comment: Metabolite of Oxazepam Prazepam, urine Not Detected Cutoff: 10 06/07/2020 11:45 [facility] ng/mL AM [facility] Comment: Centrax Temazepam Not Detected Cutoff: 10 ng/mL 06/07/2020 11:45 AM [facility] Comment: Restoril; Also a metabolite of Diazepam. Temazepam Not Detected Cutoff: 50 06/07/2020 11:45 [facility] Glucuronide ng/mL AM [facility] Comment: Metabolite of Temazepam Triazolam Not Detected Cutoff: 10 ng/mL 06/07/2020 11:45 AM [facility] Comment: Halcion Alpha-Hydroxy Not Detected Cutoff: 10 06/07/2020 11:45 [facility] Triazolam ng/mL AM [facility] Comment: Metabolite of Triazolam Zolpidem Not Detected Cutoff: 10 ng/mL 06/07/2020 11:45 AM [facility] Comment: Ambien Zolpidem Not Detected Cutoff: 10 06/07/2020 [facility] Dfnvyh-3-Tirgtzdtzi acid ng/mL 11:45 AM EMR SPECIALIST [facility] Comment: Metabolite of Zolpidem Benzodiazepine, Interp - 06/07/2020 11:45 AM EMR SPECIALIST [facility] Comment: No benzodiazepines were detected. The ab sence of expected drug(s) and/or drug metabolite(s) may in dicate non-compliance, altered pharmacokinetics , inappropriate timing of specimen collection relative t o drug administration, diluted/adulterated urin e, or limitations of testing. ADDITIONAL INFORMATIO N This test was developed and its performa nce characteristics determined by [facility] in a manner co nsistent with CLIA requirements. This test has not been madeleine ared or approved by the U.S. Food and Drug Administration. Test Performed by: [place] [id number]: Benigno Selby M.D. Ph. D.; CLIA# [id number] List patient's Not provided 06/07/2020 11:45 AM [facility] Comment: ADDITIONAL INFORMATIO N Accuracy and completeness of declared me dications on reports solely dependent on information submitted by client. Specimen Anatomical Collection Method Collection Time Receive d Time (Source) Location / / Volume Laterality Urine 06/04/2020 11:39 06/04/2020 AM EMR SPECIALIST 12:20 PM EMR SPECIALIST Melissa Coronado DNP, FLAVORING OIL FILTERER, VOLUNTEER RECRUITER LAB URINE ORDERABLES Performing Organization Address City/State/ZIP Code Phon e Number [facility] see result attachment for specific address documented in this encounter Visit Diagnoses Diagnosis Opioid use disorder, moderate, in early remission, on maintenance therapy (HCC) - Primary Cigarette nicotine dependence without co mplication documented in this encounter Care Teams T[employer] And L[employer] Technician Relationship Specialty Start Date End Date None, Pcp PCP - General Director Workforce Management 02/06/19 [address] [place] [address] documented as of this encounter
--- OUTSIDE RECORDS SUMMARY | 2022-01-14 01:45 | XMS_ITS | Encounter Summary ---
:1990 Author Organization [facility] Address [address] [place] [address] Care Team Providers Name Role Phone None, Pcp Primary Care Provider Unavailable Reason for Referral Consultation (Routine) - Closed Specialty Diagnoses / Procedures Referred By Contact Refer red To Contact Diagnoses Opioid use disorder, moderate, in early remission, on maintenance therapy (HCC) Leandro Humphries MD Fisher - Referrals [address] [place] [address] [place] [address] Phone: Fax: Referral ID Status Reason Start Date Expiration Date Visits Requ ested Visits Authorized [id number] Closed 06/11/2020 06/11/2021 1 1 CTOR SECURITY MANAGEMENT Reason for Visit Reason Comments Routine Visit Encounter Details Date Type Department Care Team Description 06/11/2020 Routine [facility] Women's Health Leandro Humphries 23 weeks gestation of (Primary Dx); [facility] MD Opioid use disorder, moderate, in early remission, on maintenance therapy (HCC); Multimedia Services Manager Supervision of high risk pre gnancy, antepartum; [address] Insomnia, unspecified type; [place], [place] Gastroesophage al reflux disease, unspecified whether esophagitis present [id number] Social History Tobacco Use Types Packs/Day [...] 03/21/2020 relatives? How often do you attend uatsdin or mosque Not asked 03/21/2020 services? Do you belong to any clubs or organizations such as Argelia schilling 03/21/2020 uatsdin groups, unions, fraternal or athletic groups, or [...] Sign Reading Time Taken Comments Blood Pressure 110/68 06/11/2020 3:00 PM DIRECTOR SECURITY MANAGEMENT Pulse - - Temperature - - Respiratory Rate - - Oxygen Saturation - - Inhaled Oxygen Concentration - - Weight 86 kg (189 lb 9.5 oz) 06/11/2020 3:00 PM DIRECTOR SECURITY MANAGEMENT Height - - Body Mass Index 31.97 04/10/2020 3:24 PM DIRECTOR SECURITY MANAGEMENT documented in this encounter Patient Instructions Patient Jose Flowers LPN - 06/11/2020 3:00 PM CST OB23 Who to Call Please contact the OBGYN department at [phone] if you experience vaginal bleeding, vaginal spotting, abnormal vaginal discharge, or have any questions/concerns. OB Concerns [facility] Birthcenter: [phone]. Due to Amaya virus, you MUST call before coming to the [...] left side and count each movement for one hour. Call if there is less than 4 movements in this hour. CALL - If you are having severe, continuous abdominal pain. Classes Group Classes and Center Tours ARE NOT BEING OFFERED CURRENTLY due to the Coronaviruspandemic. Here is a link to a short YouTube video tour of our beautiful Center: [email or web address].[email or web address]=[email or web address] [facility] has a brand new digital education platform just for you! HaileeSwogo?? offers anytime, anywhere, parent education designed to give you convenient access to valuable, research-based information on care, labor and , care, , and care, including lots of videos! Pacheco?? can also provide you with unique tools like a kick counter, contraction timer, personal journal, and more. How to get access to [email or web address]??: 1. [place] for the program by going to: [email or web address] and filling out the form. ??? After you have completed the registration, Plays.IO will send you an email from [email or web address] providing you with your login and password information. ??? Please note: the email will come from [employer] and not [facility]. If you do not receive a confirmation, be sure to check your email's Wego folder. 2. After you have created your account, you can access Plays.IO in two ways: 1. Download the free mobile talia from your talia store. Search ???Plays.IO.?? 2. Login on the [email or web address] website: [email or web address]. COVID-19 (Coronavirus) We understand your concern about COVID-19 (Coronavirus). PLEASE READ. You are responsible for this information. To keep you and your family safe, we have the following recommendations: ??? Wash your hands often with soap and water for at least 20 seconds. ??? If you can't use soap and water, please use alcohol-based hand it security administrator, like Purell. ??? Cough into your elbow, NOT your hands. ??? Avoid touching your eyes, nose, and mouth. ??? Try to avoid being around people who are sick. ??? If you are sick, please stay home from school, work, and other activities. ??? If you are sick or have had contact with a person who has COVID-19: ??? Call the [facility] Nurse Triage line at [phone] during normal clinic hours. ??? After clinic hours, use the [facility] Emergency Room if you are ill and need care. ??? We encourage social distancing: ??? Do NOT have get-togethers with friends or family. ??? Do NOT go out into public areas unless necessary. ??? If you DO go out, obey the location's social distancing rules. ??? For example, if you have to go shopping, stay away from others, wear a mask, and wash your handsoften. ??? Please wear a face covering in public settings: ??? As of November 03 2019, everyone in [place] must wear a face covering in stores and indoor gathering places. ??? Using even a simple cloth face covering can slow the spread of the virus and help people who mayhave the virus and do not know it from giving it to others. As of March 05, 2020, [facility] has implemented a ???No Visitor?? policy for the most part. These restrictions are in place to protect everyone - patients, visitors and staff - from COVID-19. [facility] patients may have another person with them ONLY for the following situations: ?? ONE other adult may come with you for your clinic appointments and for your ???OB?? or anatomy ultrasound at around 20 weeks of . ?? ONE support person may stay with you during your whole stay on the Center when you deliver. ?? A Certified Manager Completions may also be with you when you deliver, however they must leave after the delivery. ?? Your baby can come with you to appointments in the clinic with the [] consultants. ?? The parent or guardian of a young person less than 18 years old who is coming for an appointment may come with them. ?? Your support person may come with you for one-to-one classes. ?? In surgery. Our staff will let you know when your support person can be with you that day. Instructions for your Clinic Visits: If you have a fever, cough, body aches, a hard time catching your breath, or have been around someone who has COVID-19: o DO NOT COME to the clinic until you call, even if you have an appointment. o Call us first at [phone]. ??? You must wear a mask while inside the [facility]. ??? Do NOT bring anyone with you to your appointment, INCLUDING your baby, unless you are coming to see for help, or are the parent or guardian of a young person less than 18 years old who is coming for an appointment. Infusion Therapy Instructions due to COVID-19: ??? NO support person allowed to be with you. Instructions for your Center (Labor and Delivery) Care: ??? DO NOT come to the Center without calling us first - [phone]. ??? Come in the [facility] doors, like you do for appointments. ??? DO NOT come into the building through the ER. ??? Both you and your support person are required to wear a cloth or surgical face mask when you come to the hospital. ??? It is a requirement to wear a mask outside of your Center room. ??? You and your support person are required to wear a mask in your room whenever staff are present. ??? BRING everything with you when you come in, including: ??? Your car seat ??? Larson for meals for the person who comes with you, and for other needs. ??? Any personal items. ??? Your inhaler, like Albuterol/Ventolin/Proventil, if you use one for asthma or allergies. ??? ONE support person. If you may be staying in the hospital, including to deliver, this person will be the one that you want with you the whole time. No other person will be with you during your stayin the hospital. Your support person will receive a hospital band on arrival that shows that they will be with you throughout your stay with us. It is safest for you, your baby and the Center staff for your support person NOT to leave the hospital during your stay, however we understand that this person may have to leave the hospital briefly to attend to urgent needs from time to time, for example, to care for other children, however, these trips out should be as short as possible, and that person should avoid contact with other people as much as they can when they are outside of the hospital. Looking for more information about COVID-19 in and ? https://www.acog.org/patient-resources/faqs//yvqvqefsfjf-lcmnlxuxl-ftu- OB23 Who to Call Please contact the OBGYN department at [phone] if you experience vaginal bleeding, vaginal spotting, abnormal vaginal discharge, or have any questions/concerns. OB Concerns [facility] Birthcenter: [phone]. Due to Amaya virus, you MUST call before coming to the [...] left side and count each movement for one hour. Call if there is less than 4 movements in this hour. CALL - If you are having severe, continuous abdominal pain. Classes Group Classes and Center Tours ARE NOT BEING OFFERED CURRENTLY due to the Coronaviruspandemic. Here is a link to a short YouTube video tour of our beautiful Center: https://www.Synovex.com/watch?[email or web address]=[email or web address] [facility] has a brand new digital education platform just for you! Plays.IO?? offers anytime, anywhere, parent education designed to give you convenient access to valuable, research-based information on care, labor and , care, , and care, including lots of videos! [employer]?? can also provide you with unique tools like a kick counter, contraction timer, personal journal, and more. How to get access to Plays.IO??: 3. [place] for the program by going to: [email or web address] [email or web address] _[email or web address] and filling out the form. ??? After you have completed the registration, Plays.IO will send you an email from [email or web address] providing you with your login and password information. ??? Please note: the email will come from [facility] and not [facility]. If you do not receive a confirmation, be sure to check your email's Wego folder. 4. After you have created your account, you can access Plays.IO in two ways: 1. Download the free mobile talia from your talia store. Search ???Plays.IO.?? 2. Login on the Plays.IO website: [email or web address]. COVID-19 (Coronavirus) We understand your concern about COVID-19 (Coronavirus). PLEASE READ. You are responsible for this information. To keep you and your family safe, we have the following recommendations: ??? Wash your hands often with soap and water for at least 20 seconds. ??? If you can't use soap and water, please use alcohol-based hand it security administrator, like Purell. ??? Cough into your elbow, NOT your hands. ??? Avoid touching your eyes, nose, and mouth. ??? Try to avoid being around people who are sick. ??? If you are sick, please stay home from school, work, and other activities. ??? If you are sick or have had contact with a person who has COVID-19: ??? Call the [facility] Nurse Triage line at [phone] during normal clinic hours. ??? After clinic hours, use the [facility] Emergency Room if you are ill and need care. ??? We encourage social distancing: ??? Do NOT have get-togethers with friends or family. ??? Do NOT go out into public areas unless necessary. ??? If you DO go out, obey the location's social distancing rules. ??? For example, if you have to go shopping, stay away from others, wear a mask, and wash your handsoften. ??? Please wear a face covering in public settings: ??? As of November 03 2019, everyone in [place] must wear a face covering in stores and indoor gathering places. ??? Using even a simple cloth face covering can slow the spread of the virus and help people who mayhave the virus and do not know it from giving it to others. As of March 05, 2020, [facility] has implemented a ???No Visitor?? policy for the most part. These restrictions are in place to protect everyone - patients, visitors and staff - from COVID-19. [facility] patients may have another person with them ONLY for the following situations: ?? ONE other adult may come with you for your clinic appointments and for your ???OB?? or anatomy ultrasound at around 20 weeks of . ?? ONE support person may stay with you during your whole stay on the Center when you deliver. ?? A Certified Manager Completions may also be with you when you deliver, however they must leave after the delivery. ?? Your baby can come with you to appointments in the clinic with the [] consultants. ?? The parent or guardian of a young person less than 18 years old who is coming for an appointment may come with them. ?? Your support person may come with you for one-to-one classes. ?? In surgery. Our staff will let you know when your support person can be with you that day. Instructions for your Clinic Visits: If you have a fever, cough, body aches, a hard time catching your breath, or have been around someone who has COVID-19: o DO NOT COME to the clinic until you call, even if you have an appointment. o Call us first at [phone]. ??? You must wear a mask while inside the [facility]. ??? Do NOT bring anyone with you to your appointment, INCLUDING your baby, unless you are coming to see for help, or are the parent or guardian of a young person less than 18 years old who is coming for an appointment. Infusion Therapy Instructions due to COVID-19: ??? NO support person allowed to be with you. Instructions for your Center (Labor and Delivery) Care: ??? DO NOT come to the Center without calling us first - [phone]. ??? [facility] doors, like you do for appointments. ??? DO NOT come into the building through the ER. ??? Both you and your support person are required to wear a cloth or surgical face mask when you come to the hospital. ??? It is a requirement to wear a mask outside of your Center room. ??? You and your support person are required to wear a mask in your room whenever staff are present. ??? BRING everything with you when you come in, including: ??? Your car seat ??? Larson for meals for the person who comes with you, and for other needs. ??? Any personal items. ??? Your inhaler, like Albuterol/Ventolin/Proventil, if you use one for asthma or allergies. ??? ONE support person. If you may be staying in the hospital, including to deliver, this person will be the one that you want with you the whole time. No other person will be with you during your stayin the hospital. Your support person will receive a hospital band on arrival that shows that they will be with you throughout your stay with us. It is safest for you, your baby and the Center staff for your support person NOT to leave the hospital during your stay, however we understand that this person may have to leave the hospital briefly to attend to urgent needs from time to time, for example, to care for other children, however, these trips out should be as short as possible, and that person should avoid contact with other people as much as they can when they are outside of the hospital. Looking for more information about COVID-19 in and ? https://www.acog.org/patient-resources/faqs//kqrywkcbbzd-vckkhwfqb-zrn- [facility]OR SECURITY MANAGEMENT documented in this encounter Progress Notes Leandro Humphries MD - 06/11/2020 3:00 PM CST [id number] Doing well. No cramping. Some back pain. RUDS today. Discussed at length logistics of care transfer if baby needs to go to NICU after delivery. Reviewed there is a ~50% chance baby may need transfer. Reviewed this is up to her -- we could care for her during her , with the understanding that baby may need transfer. She is considering transfer at 28 weeks. Referral sent today. Will make appointment and consider this. RUDS today -- patient requesting such. All questions answered. Leandro Humphries MD CTOR SECURITY MANAGEMENT documented in this encounter Miscellaneous Notes Addendum Note - Leandro Humphries MD - 06/11/2020 3:00 PM DIRECTOR SECURITY MANAGEMENT Addended by: LEANDRO HUMPHRIES on: 06/11/2020 03:22 PM Modules accepted: Orders CTOR SECURITY MANAGEMENT documented in this encounter Plan of Treatment Scheduled Referrals Name Type Priority Associated Diagnoses Order S chedule Ambulatory External Outpatient Referral Routine Opioid use dis order, Ordered: Referral moderate, in early remission, on maintenance therapy (HCC) documented as of this encounter Goals Goal Patient Goal Associated Recent Patient-Stated? Author Type Problems Progress secure housing General Yes Melissa Coronado, JUAN DIEGO, COMBINE MECHANIC, OCEANOLOGY TEACHER Note: Formatting of this note might be d ifferent from the original. - has applied for several housing lists; waiting to hear back, wants to be near family Quit using tobacco (cigarettes, Tobacco Use No Melissa Coronado, JUAN DIEGO, COMBINE MECHANIC, smokeless, etc) OCEANOLOGY TEACHER Note: Formatting of this note might be d ifferent from the original. Will use nicorette gum in case of breakt hrough craving. Will find some candy or suckers to use d uring group to occupy her hands/oral fixation documented as of this encounter Results (ABNORMAL) Rapid drug screen, urine (06/11/2020 3:00 PM DIRECTOR SECURITY MANAGEMENT) athologist Signature Rapid Urine ----- 06/11/2020 [facility] Drug Screen 3:34 PM DIRECTOR SECURITY MANAGEMENT [facility] Comment: This is a screening test. ??Positive res ults should be considered presumptive and are sent to edtox for confirmation. This test is not for legal purposes - on medical. Tetrahydrocannabinol NOT DETECTED Not Detected 06/11/2020 6: 38 [facility] DIRECTOR SECURITY MANAGEMENT CENTER LABORAT[facility] Phencyclidine, Mec NOT DETECTED Not Detected 06/11/2020 6:38 [facility] DIRECTOR SECURITY MANAGEMENT [facility] Cocaine NOT DETECTED Not Detected 06/11/2020 6:38 [facility] DIRECTOR [facility] MANA[facility]EMENT [facility] Methamphetamine NOT DETECTED Not Detected 06/11/2020 6:38 [facility] DIRECTOR SECURITY MANAGEMENT [facility] Opiates NOT DETECTED Not Detected 06/11/2020 6:38 [facility] DIRECTOR SECURITY MANAGEMENT [facility] Amphetamines NOT DETECTED Not Detected 06/11/2020 6:38 [facility] DIRECTOR SECURITY MANAGEMENT [facility] Benzodiazepines NOT DETECTED Not Detected 06/11/2020 6:38 [facility] DIRECTOR SECURITY MANAGEMENT [facility] TCA, Urine NOT DETECTED Not Detected 06/11/2020 6:38 [facility] DIRECTOR SECURITY MANAGEMENT [facility] Methadone NOT DETECTED Not Detected 06/11/2020 6:38 [facility] DIRECTOR SECURITY MANAGEMENT [facility] Barbiturates NOT DETECTED Not Detected 06/11/2020 6:38 [facility] DIRECTOR SECURITY MANAGEMENT [facility] Oxycodone NOT DETECTED Not Detected 06/11/2020 6:38 [facility] DIRECTOR SECUR[facility] MANA[facility]EMENT [facility] Propoxyphene NOT DETECTED Not Detected 06/11/2020 6:38 [facility] DIRECTOR SECURITY MANAGEMENT [facility] Buprenorphine DETECTED (A) Not Detected 06/11/2020 6:38 [facility] DIRECTOR SECURITY MANAGEMENT [facility]ENTER [facility] Comment: Sent to StartMe for GC/MS confirmation. Detectable Levels ----- 06/11/2020 3:34 PM DIRECTOR SECURITY MANAGEMENT [facility] Comment: Amphetamines ?500 ng/ mL [...] 3:00 PM 06/12/19 21 4:04 Clean Catch) DIRECTOR SECURITY MANAGEMENT PM DIRECTOR SECURITY MANAGEMENT Leandro Humphries MD LAB URINE ORDERABLES Performing Organization Address City/State/ZIP Code Phon e Number [facility] [address] [place] [address] documented in this encounter Visit Diagnoses Diagnosis 23 weeks gestation of - Primar y Opioid use disorder, moderate, in early remission, on maintenance therapy (HCC) Supervision of high risk , ante Insomnia, unspecified type Gastroesophageal reflux disease, unspeci fied whether esophagitis present documented in this encounter Care Teams Mexican Food Maker Hand Relationship Specialty Start Date End Date None, Pcp PCP - General Component Inspector 02/06/19 [address] [place] [address] documented as of this encounter
--- OUTSIDE RECORDS SUMMARY | 2022-01-14 01:45 | XMS_ITS | Encounter Summary ---
:1990 Author Organization [facility] Address [address] [place] [address] Care Team Providers Name Role Phone None, Pcp Primary Care Provider Unavailable Reason for Visit Reason Onset Date Comments MedTox confirmation results 06/17/2020 Encounter Details Date Type Department Care Team Description 06/17/2020 Telephone [facility] Zainab Rm Ny dTox confirmation [facility] results Predatory Animal Trapper [address] [place], [place] [id number] Social History Tobacco Use Types Packs/Day Years [...] How often do you attend lutheran or alevism Not asked 03/21/2020 services? Do you belong [...] Telephone Encounter - Vanessa Yeager RN - 06/17/2020 9:43 AM CST MedTox confirmatory results received. Buprenorphine 116 ng/mL Norbuprenorphine 2204 ng/mL Upon review of medications: buprenorphine (SUBUTEX) 2 MG Sig: Take one tablet in the morning (with 8 mg tablet) and one tablet in the evening (with 8 mg tablet). Total daily dose 20 mg. Prescribed on 06/11/2020 SIFYING MACHINE OPERATOR documented in this encounter Plan of Treatment Not on filedocumented as of this encounter Goals Goal Patient Goal Associated Recent Patient-Stated? Author Type Problems Progress secure housing General Yes Melissa Coronado, DNP, FOOD ORDER EXPEDITER, PORTABLE SAWYER Note: Formatting of this note might be d ifferent from the original. - has applied for several housing lists; waiting to hear back, wants to be near family Quit using tobacco (cigarettes, Tobacco Use No Melissa Coronado, DNP, FOOD ORDER EXPEDITER, smokeless, etc) PORTABLE SAWYER Note: Formatting of this note might be d ifferent from the original. Will use nicorette gum in case of breakt hrough craving. Will find some candy or suckers to use d uring group to occupy her hands/oral fixation documented as of this encounter Visit Diagnoses Not on filedocumented in this encounter Care Teams Manager Quantitative Relationship Specialty Start Date End Date None, Pcp PCP - General Personal Property Assessor 02/06/19 [address] [place] [address] documented as of this encounter
--- OUTSIDE RECORDS SUMMARY | 2022-01-14 01:45 | XMS_ITS | Encounter Summary ---
:1990 Author Organization [facility] Address [address] [place] [address] Care Team Providers Name Role Phone None, Pcp Primary Care Provider Unavailable Reason for Visit Reason Comments MAT Clinic Follow Up Encounter Details Date Type Department Care Team Description 07/03/2020 Office Visit SE MEDICATION Ivonne, Melissa Opioid use disorder, ASSISTED TREATMENT K., DNP, HOOP COILING MACHINE OPERATOR, JOURNEYMAN WELDER moderate, in early [address], [place] [address] [place] maintenance therapy [phone] (HCC) (Primary Dx) Social History Tobacco [...] How often do you attend rastafarian or muslim Not asked 03/21/2020 services? Do you belong [...] Sign Reading Time Taken Comments Blood Pressure 124/67 07/03/2020 1:34 PM CDT Pulse 96 07/03/2020 1:34 PM CDT Temperature 36.6 ??C (97.8 ??F) 07/03/2020 1:34 PM CDT Respiratory Rate - - Oxygen Saturation 97% 07/03/2020 1:34 PM CDT Inhaled Oxygen Concentration - - Weight - - Height - - Body Mass Index - - documented in this encounter Patient Instructions Patient InstructionsMelissa Coronado DNP, NICHOLAS, MIK - 07/03/2020 1:30 PM CDT Continue Subutex 8 mg and 2 mg twice daily. Follow up on 07/31/2020 with lab prior. documented in this encounter Progress Notes Melissa Coronado DNP, APRN, MIK - 07/03/2020 1:30 PM CDT MAT Clinic Follow Up Note Discussion Date: 07/03/2020 2:24 PM CHIEF COMPLAINT: Anjali presents for MAT Clinic follow up visit for management of opioid use disorder. Last visit: 06/04/2020 She has been taking Suboxone as prescribed: [...] yo female who presents for buprenorphine follow-up. No cravings, no use. Currently 27 weeks and ready to be done. She is still vaping nicotine, but less so. Asked if she was interested in decreasing her dose slightly as her delivery date nears; she is not interested in doing that as she feels her current dose is barely doing the job as it is. She still lives at [facility] andis trying to work things out with her boyfriend who gets out of intermediate in July. He will be going toa [facility] house also. [facility] Mood: Anxious Sleep: not discussed Appetite: normal, no concerns Employment status changes: not discussed Housing: currently at [facility] housing, but leaving soon because of giving (due August) Current life stressors: housing Relationships: in relationship with child's father who is getting released soon Libido: not discussed Daily Functioning/ADLs: no concerns or changes Social Support: not discussed Recovery Activities: IOP at [facility] Her leisure activities include... not discussed Her [...] with the dose increase. Patient is currently 27 weeks , experiencing heartburn, feeling baby movements regularly, has OB appointments every month. Concerns: nicotine dependence; emotional health Last UDS results: as expected Today's Plan: Continue Subutex 20 mg daily with follow-up in 4 weeks Relevant Medications buprenorphine (SUBUTEX) 2 MG buprenorphine (SUBUTEX) 8 MG Other Relevant Orders Controlled Substance Monitoring Panel, Urine Orders Placed This Encounter Procedures ??? Controlled Substance Monitoring Panel, Urine MAT Clinic Standing Status: Future Standing Expiration Date: 07/03/2021 PLAN: Continue with [facility] Clinic Treatment Program and plan of care. Patient will follow up in 4 week(s) Patient Instructions Continue Subutex 8 mg and 2 mg twice daily. Follow up on 07/31/2020 with lab prior. Patient goals: Goals ??? Quit using tobacco (cigarettes, smokeless, etc) Started bupropion 05/22, with plans to discontinue vaping. Will use nicorette gum in case of breakthrough craving. Will find some candy or suckers to use during group to occupy her hands/oral fixation ??? secure housing (pt-stated) - would like to apply for [facility] in the future to secure permament housing for her and her child Melissa Coronado DNP, APRN, MIK documented in this encounter Miscellaneous Notes Assessment & Plan Note - Melissa Coronado DNP, APRN, CNP - 07/03/2020 1:39 PM CDTAssociated Problem(s): Opioid use disorder, moderate, in early remission, on maintenance therapy (HCC) It was a pleasure to visit with Ms. Hoang. She is maintained at stable dose of 20 mg Subutex daily. Cravings have subsided with the dose increase. Patient is currently 27 weeks , experiencing heartburn, feeling baby movements [...] Quit using tobacco (cigarettes, Tobacco Use No Ivonne, Melissa K., DNP, HOOP COILING MACHINE OPERATOR, smokeless, etc) JOURNEYMAN WELDER Note: Formatting of this note might be d ifferent from the original. Will use nicorette gum in case of breakt hrough craving. Will find some candy or suckers to use d uring group to occupy her hands/oral fixation documented as of this encounter Results (ABNORMAL) Controlled Substance Monitoring Panel, Urine (07/31/2020 1:25 PM CDT) Component Value Ref Test Analysis Performed At [facility] Range Method Time Signature Barbiturates Negative Cutoff: 08/02/2020 [facility] 200 2:42 PM CDT LABORATORIES ng/mL Cocaine Negative Cutoff: 08/02/2020 [facility] 150 2:42 PM CDT LABORATORIES ng/mL Tetrahydrocannabinol Negative Cutoff: 08/02/2020 [facility] 50 ng/mL 2:42 PM CDT LABORATORIES Comment: ADDITIONAL INFORMATIO N This report is intended for use in clini wilfred monitoring or management of patients. ??It is not inte nded for use in employment-related testing. Codeine Not Detected Cutoff: 25 ng/mL 08/02/2020 2:42 PM [facility] CDT LABORATORIES Comment: Tylenol 3 Tbgxrsi-9-kifk-glucuronide Not Detected Cutoff: 100 08/03/19 21 [facility] ng/mL 2:42 PM CDT LABORATORIES Comment: Metabolite of codeine Morphine Urine Not Detected Cutoff: 08/02/2020 2:42 PM [facility] ng/mL CDT LABORATORIES Comment: Emilia Perry, MS Contin; Also a minor metabolite (10%) of codeine and can be seen in low concentra tions (<2,000 ng/mL) with poppy seed ingestion. Xwtejjzs-9-qogr-glucuronide Not Detected Cutoff: 100 021 [facility] ng/mL 2:42 PM CDT LABORATORIES Comment: Metabolite of morphine 6-monoacetylmorphine Not Detected Cutoff: 25 08/02/2020 2:42 [facility] ng/mL PM CDT LABORATORIES Comment: Metabolite of heroin Hydrocodone Not Detected Cutoff: 25 ng/mL 08/02/2020 2:42 PM [facility] CDT LABORATORIES Comment: Lortab, [place], Vicodin; Also a very phoenix r metabolite of codeine and impurity (<1%) of oxycodone. Norhydrocodone Not Detected Cutoff: 25 08/02/2020 2:42 PM [facility] ng/mL CDT LABORATORIES Comment: Metabolite of hydrocodone Dihydrocodeine Not Detected Cutoff: 25 08/02/2020 2:42 PM [facility] ng/mL CDT LABORATORIES Comment: Metabolite of hydrocodone Hydromorphone Not Detected Cutoff: 25 ng/mL 08/02/2020 2:42 PM [facility] CDT LABORATORIES Comment: Dilaudid, Exalgo; Also a metabolite of h ydrocodone and a minor (<5%) metabolite of morphine. Dfnsumlbtgxqo-4-abax-glucuronide Not Cutoff: [facility] Detected 100 ng/mL 2:42 PM CDT LABORATORIES Comment: Metabolite of hydromorphone Oxycodone Not Detected Cutoff: 25 ng/mL 08/02/2020 2:42 PM [facility] CDT LABORATORIES Comment: Endocet, Percocet, Oxycontin Noroxycodone Not Detected Cutoff: 25 ng/mL 08/02/2020 2:42 P [facility] CDT LABORATORIES Comment: Metabolite of oxycodone Oxymorphone Not Detected Cutoff: 25 ng/mL 08/02/2020 2:42 PM [facility] CDT LABORATORIES Comment: Numorphan, Opana; Also a metabolite of o xycodone. Gfbllbfrxvt-7-veme-glucuronide Not Detected Cutoff: 2020 [facility] 100 ng/mL 2:42 PM CDT LABORATORIES Comment: Metabolite of oxymorphone and/or naloxon e (nornaloxone) Noroxymorphone Not Detected Cutoff: 25 08/02/2020 2:42 PM [facility] ng/mL CDT LABORATORIES Comment: Metabolite of oxymorphone and/or naloxon e (nornaloxone) Fentanyl Not Detected Cutoff: 2 ng/mL 08/02/2020 2:42 PM [facility] CDT LAB[facility]IES Comment: Actiq, Duragesic, Fentora Norfentanyl Not Detected Cutoff: 2 ng/mL 08/02/2020 2:42 PM [facility] CDT LABORATORIES Comment: Metabolite of fentanyl Meperidine Not Detected Cutoff: 25 ng/mL 08/02/2020 2:42 PM [facility] CDT LABORATORIES Comment: Demerol Normeperidine Not Detected Cutoff: 25 ng/mL 08/02/2020 2:42 PM [facility] CDT LABORATORIES Comment: Metabolite of meperidine Naloxone Not Detected Cutoff: 25 ng/mL 08/02/2020 2:42 PM [facility] CDT LABORATORIES Comment: Narcan Ulujydlp-4-usku-glucuronide Not Detected Cutoff: 100 021 [facility] ng/mL 2:42 PM CDT LABORATORIES Comment: Metabolite of naloxone Methadone Not Detected Cutoff: 25 ng/mL 08/02/2020 2:42 PM [facility] CDT LABORATORIES Comment: Dolophine EDDP Not Detected Cutoff: 25 ng/mL 08/02/2020 2:42 PM [facility] Comment: Metabolite of methadone Propoxyphene Not Detected Cutoff: 25 ng/mL 08/02/2020 2:42 P M [facility] CDT LABORATORIES Comment: Darvon, Darvocet Norpropoxyphene Not Detected Cutoff: 25 08/02/2020 2:42 PM [facility] ng/mL CDT LABORATORIES Comment: Metabolite of propoxyphene Tramadol Not Detected Cutoff: 25 ng/mL 08/02/2020 2:42 PM [facility] CDT LABOR[facility]IES Comment: Tradol, Ultram, Ultracet O-desmethyltramadol Not Detected Cutoff: 25 08/02/2020 2:42 [facility] ng/mL PM CDT LABORATORIES Comment: Metabolite of tramadol Tapentadol Not Detected Cutoff: 25 ng/mL 08/02/2020 2:42 PM [facility] CDT LABORATORIES Comment: Nucynta N-desmethyltapentadol Not Detected Cutoff: 50 08/02/2020 2:4 2 [facility] ng/mL PM CDT LABORATORIES Comment: Metabolite of tapentadol Oerdaubomx-oqnn-fxcckgjzevy Not Detected Cutoff: 100 021 [facility] ng/mL 2:42 PM CDT LABORATORIES Comment: Metabolite of tapentadol Buprenorphine Not Detected Cutoff: 5 ng/mL 08/02/2020 2:42 P M [facility] CDT LABORATORIES Comment: Buprenex, Suboxone Norbuprenorphine Present (A) Cutoff: 5 ng/mL 08/02/2020 2:42 PM [facility] CDT LABORATORIES Comment: Metabolite of buprenorphine Norbuprenorphine Present (A) Cutoff: 20 08/02/2020 2:42 [facility] glucuronide ng/mL PM CDT LABORATORIES Comment: Metabolite of buprenorphine Opioid Interpretation - 08/02/2020 2:42 PM CDT [facility] Comment: Test detected the presence of norbupreno rphine and norbuprenorphine glucuronide which are m etabolites of buprenorphine. Suspect use of buprenorph ine within the past three days. ADDITIONAL INFORMATIO N This test was developed and its performa nce characteristics determined by [facility] in a manner co nsistent with CLIA requirements. This test has not been madeleine ared or approved by the U.S. Food and Drug Administration. Creatinine, Urine 78.5 mg/dL 08/02/2020 2:42 [facility] PM CDT [facility]IES Specific Snow, 1.011 08/02/2020 2:42 [facility] Urine PM CDT LABORATORIES pH, Urine 7.0 08/02/2020 2:42 [facility] PM CDT LABORATORIES Oxidants Negative Cutoff: 200 08/02/2020 2:42 [facility] mg/L PM CDT LABORATORIES Comment Normal 08/02/2020 2:42 [facility] Alprazolam Not Detected Cutoff: 10 08/02/2020 2:42 [facility] ng/mL PM CDT LABORATORIES Comment: Xanax Alpha-Hydroxyalprazolam UR Not Detected Cutoff: [facility] ng/mL 2:42 PM CDT LABORATORIES Comment: Metabolite of Alprazolam Alpha-Hydroxyalprazolam Not Detected Cutoff: 50 08/02/2020 [facility] Glucuron[facility] ng/mL 2:42 PM CDT LABORATORIES Comment: Metabolite of Alprazolam Chlordiazepoxide Not Detected Cutoff: 08/02/2020 2:42 [facility] ng/mL PM CDT [facility] Comment: Librium Clobazam Not Detected Cutoff: 10 ng/mL 08/02/2020 2:42 PM [facility] CDT [facility] Comment: Frisium, Onfi N-Desmethylclobazam Not Detected Cutoff: 200 08/02/2020 2:42 [facility] ng/mL PM CDT LAB[facility] Comment: Metabolite of Clobazam Clonazepam Lvl Not Detected Cutoff: 10 08/02/2020 2:42 PM [facility] ng/mL CDT LABORATORIES Comment: Klonopin, Rivotril 7-Aminoclonazepam Not Detected Cutoff: 10 08/02/2020 2:42 [facility] ng/mL PM CDT LABORATORIES Comment: Metabolite of Clonazepam Diazepam UR Not Detected Cutoff: 10 08/02/2020 2:42 PM [facility] Quant ng/mL CDT LABORATORIES Comment: Valium Nordiazepam Not Detected Cutoff: 10 ng/mL 08/02/2020 2:42 PM [facility] CDT LAB[facility]IES Comment: Metabolite of Chlordiazepoxide, Diazepam , or Prazepam. Flunitrazepam Not Detected Cutoff: 10 ng/mL 08/02/2020 2:42 PM [facility] CDT LAB[facility]IES Comment: Rohypnol 7-Aminoflunitrazepam Not Detected Cutoff: 10 08/02/2020 2:42 [facility] ng/mL PM CDT LABORATORIES Comment: Metabolite of Flunitrazepam Flurazepam Not Detected Cutoff: 10 ng/mL 08/02/2020 2:42 PM [facility] CDT LABORATORIES Comment: Dalmane 2- hydroxy ethyl Not Detected Cutoff: 10 08/02/2020 2:42 [facility] flurazepam ng/mL PM CDT LABORATORIES Comment: Metabolite of Flurazepam Lorazepam Not Detected Cutoff: 10 ng/mL 08/02/2020 2:42 PM [facility] CDT [facility] Comment: Ativan Lorazepam Not Detected Cutoff: 50 08/02/2020 2:42 [facility] Glucuronide ng/mL PM CDT LABORATORIES Comment: Metabolite of Lorazepam Midazolam Not Detected Cutoff: 10 ng/mL 08/02/2020 2:42 PM [facility] CDT [facility] Comment: Versed Alpha-Hydroxy Not Detected Cutoff: 10 08/02/2020 2:42 [facility] Midazolam ng/mL PM CDT LABORATORIES Comment: Metabolite of Midazolam Oxazepam Not Detected Cutoff: 10 ng/mL 08/02/2020 2:42 PM [facility] CDT [facility] Comment: Serax; Also a metabolite of Chlordiazepo xide, Diazepam, or Temazepam. Oxazepam Not Detected Cutoff: 50 08/02/2020 2:42 [facility] Glucuronide ng/mL PM CDT LABORATORIES Comment: Metabolite of Oxazepam Prazepam, urine Not Detected Cutoff: 10 08/02/2020 2:[address] [facility] ng/mL CDT LABORATORIES Comment: Centrax Temazepam Not Detected Cutoff: 10 ng/mL 08/02/2020 2:[address] [facility] CDT LAB[facility] Comment: Restoril; Also a metabolite of Diazepam. Temazepam Not Detected Cutoff: 50 08/02/2020 2:42 [facility] Glucuronide ng/mL PM CDT LABORATORIES Comment: Metabolite of Temazepam Triazolam Not Detected Cutoff: 10 ng/mL 08/02/2020 2:42 PM [facility] CDT [facility] Comment: Halcion Alpha-Hydroxy Not Detected Cutoff: 10 08/02/2020 2:42 [facility] Triazolam ng/mL PM CDT LABORATORIES Comment: Metabolite of Triazolam Zolpidem Not Detected Cutoff: 10 ng/mL 08/02/2020 2:42 PM [facility] CD[facility] Comment: Ambien Zolpidem Not Detected Cutoff: 10 08/02/2020 2:42 [facility] Calntw-7-Ilnwpxwfus acid ng/mL PM CDT LABOR ATORIES Comment: Metabolite of Zolpidem Benzodiazepine, Interp - 08/02/2020 2:42 P M CDT [facility] Comment: No benzodiazepines were detected. The ab sence of expected drug(s) and/or drug metabolite(s) may in dicate non-compliance, altered pharmacokinetics , inappropriate timing of specimen collection relative t o drug administration, diluted/adulterated urin e, or limitations of testing. ADDITIONAL INFORMATIO N This test was developed and its performa nce characteristics determined by [facility] in a manner co nsistent with CLIA requirements. This test has not been madeleine ared or approved by the U.S. Food and Drug Administration. Methamphetamine Not Detected Cutoff: 100 08/02/2020 2:42 PM [facility] ng/mL CDT LABORATORIES Comment: Desoxyn Amphetamines Not Detected Cutoff: 100 08/02/2020 2:42 PM [facility] ng/mL CDT [facility] Comment: Dyanavel XR, Adzenys ER, Adderall, Vyvan se; Also a metabolite of methamphetamine 3,4 Not Cutoff: 08/02/2020 [facility] Methylenedioxymethamphetamine Detected 100 ng/mL 2:42 PM CD T LABORATORIES 3,4 Not Cutoff: 08/02/2020 [facility] Ovgprisnijmskc-D-yjhrbjojhpwnjbp Detected 100 ng/mL 2:42 PM CDT LABORATORIES e (MDEA) 3,4 Methylenedioxyamphetamine Not Cutoff: 08/02/2020 [facility] Detected 100 ng/mL 2:42 PM CDT LABORATORIES Comment: Also a metabolite of MDMA and/or MDEA Ephedrines Not Detected Cutoff: 100 08/02/2020 2:42 [facility] ng/mL PM CDT LABORATORIES Psuedoephederine Not Detected Cutoff: 100 08/02/2020 2:42 [facility] ng/mL PM CDT LABORATORIES Comment: Sudafed Phentermine Not Detected Cutoff: 100 08/02/2020 2:42 PM [facility] ng/mL CDT LAB[facility]ATORIES Comment: Adipex-P, Lomaira, Qsymia Phencyclicine (PCP) Not Detected Cutoff: 20 08/02/2020 2:42 [facility] ng/mL PM CDT LABORATORIES Methylphenidate Not Detected Cutoff: 20 08/02/2020 2:42 [facility] ng/mL PM CDT LABORATORIES Comment: Ritalin, Concerta Ritalinic Acid Not Detected Cutoff: 100 08/02/2020 2:42 PM [facility] ng/mL CDT LAB[facility]ATORIES Comment: Metabolite of methylphenidate Stimulant Interpretation - 08/02/2020 2:42 PM CDT [facility] Comment: No stimulants were detected. The absence of expected drug(s) and/or drug metabolite(s) may in dicate non-compliance, altered pharmacokinetics , inappropriate timing of specimen collection relative t o drug administration, diluted/adulterated urin e, or limitations of testing. ADDITIONAL INFORMATIO N This test was developed and its performa nce characteristics determined by [facility] in a manner co nsistent with CLIA requirements. This test has not been madeleine ared or approved by the U.S. Food and Drug Administration. Test Performed by: [facility] - [facility] [address] [address] [address] Marine Engine Mechanic: Benigno Selby M.D. Ph. D.; CLIA# [id number] List patient's Not provided 08/02/2020 2:42 PM CDT [facility] LAB[facility]ATORIES Comment: ADDITIONAL INFORMATIO N Accuracy and completeness of declared me dications on reports solely dependent on information submitted by client. Specimen Anatomical Collection Method Collection Time Receive d Time (Source) Location / / Volume Laterality Urine 07/31/2020 1:25 PM 1:26 CDT PM CDT Melissa Coronado DNP, HOOP COILING MACHINE OPERATOR, JOURNEYMAN WELDER LAB URINE ORDERABLES Performing Organization Address City/State/ZIP Code Phon e Number [facility] see result attachment for specific address documented in this encounter Visit Diagnoses Diagnosis Opioid use disorder, moderate, in early remission, on maintenance therapy (HCC) - Primary documented in this encounter Care Teams Package Line Relief Operator Relationship Specialty Start Date End Date None, Pcp PCP - General Corporate Safety Coordinator 02/06/19 [address] [place] [address] documented as of this encounter
--- OUTSIDE RECORDS SUMMARY | 2022-01-14 01:45 | XMS_ITS | Encounter Summary ---
:1990 Author Organization Address [address] [place] [address] Care Team Providers Name Role Phone None, Pcp Primary Care Provider Unavailable Reason for Visit Reason Onset Date Comments Med PA 05/23/2020 Buprenorphine HCl 2M G sublingual tablets Encounter Details Date Type Department Care Team Description 05/23/2020 Telephone SE MEDICATION ASSISTED Melissa Coronado , Med PA (Buprenorphine TREATMENT DNP, EXAMINER RATING CLERK, DEPARTMENT STORE MANAGER HCl 2MG sublingual [address] tablets) [place] [address] [place] [address] [phone] Social History Tobacco Use Types Packs/Day Years [...] 03/21/2020 relatives? How often do you attend judaism or buddhist Not asked 03/21/2020 services? Do you belong to any clubs or organizations such as Not chinmay schilling 03/21/2020 judaism groups, unions, fraternal or athletic groups, or [...] place to sleep or slept in a retirement (including now)? Education Answer Date Recorded What is the highest level of school you have High school gra duate 03/21/2020 completed or the highest degree you have received? Sex Assigned at Date Recorded Not on file documented as of this encounter Miscellaneous Notes Telephone Encounter - Melissa Coronado DNP, APRN, MIK - 06/02/2020 4:22 PM UI APPLICATION DEVELOPER Thank you very much, appreciate all your effort on this! APPLICATION DEVELOPER Telephone Encounter - Jael Baer MA - 06/02/2020 3:17 PM CST Per ins. There is an authorization already on file for this medication good until 10/08/2020, calledpharmacy to verify, this is now going through pharmacy for #14 per 7 days. Will check back and make sure it works in 7 days time. APPLICATION DEVELOPER Addendum Note - Melissa Coronado DNP, APRN, MIK - 05/30/2020 12:36 PM UI APPLICATION DEVELOPER Addended by: MELISSA CORONADO on: 05/30/2020 12:36 PM Modules accepted: Orders APPLICATION DEVELOPER Telephone Encounter - Jael Baer MA - 05/30/2020 12:33 PM CST Received call from pharmacy that the 2mg is rejecting, called ins. To complete QL for both 2mg and 8mg dosages, completed as alpesh, should have answer by Tuesday06/02/2020. APPLICATION DEVELOPER Telephone Encounter - Melissa Coronado DNP, NICHOLAS, MIK - 05/30/2020 12:31 PM CST In the meantime, will send script for Suboxone 4-1 mg film that she can cut in half and take with her 8mg Subutex tablets. Patient takes Subutex 10 mg (8mg and 2mg tablets) twice daily. Patient has appointment with Dr. Barrett on 06/04/20. Prior auth team is working on this and should know by Tuesday. Hopefully Dr. Barrett should be able to resume medication regimen as usual by her next appointment. APPLICATION DEVELOPER Telephone Encounter - Sandy Leonardo MA - 05/26/2020 5:15 AM CST Per insurance there is currently an authorization in place for this medication effective from 12/21/2019 - 09/19/2020. Case # [id number]. Pharmacy was notified. APPLICATION DEVELOPER Telephone Encounter - Rupinder Carrillo LPN - 05/23/2020 12:55 PM CST Buprenorphine HCl 2MG sublingual tablets PA completed per [facility], sent to insurance plan [place]: [id number] [facility] Care ID: [id number] APPLICATION DEVELOPER documented in this encounter Plan of Treatment [...] (cigarettes, Tobacco Use No Melissa Coronado, DNP, EXAMINER RATING CLERK, smokeless, etc) DEPARTMENT STORE MANAGER Note: Formatting of this note might [...] Primary documented in this encounter Care Teams Process Area Supervisor Relationship Specialty Start Date End Date None, Pcp PCP - General Customer Data Technician 02/06/19 [address] [place] [address] documented as of this encounter
--- OUTSIDE RECORDS SUMMARY | 2022-01-14 01:45 | XMS_ITS | Encounter Summary ---
:1990 Author Organization [facility] Address [address] [place] [address] Care Team Providers Name Role Phone None, Pcp Primary Care Provider Unavailable Reason for Visit Reason Comments MAT Clinic Follow Up Encounter Details Date Type Department Care Team Description 06/04/2020 Office Visit SE MEDICATION ASSISTED Rajendra Barrett O pioid use disorder, TREATMENT MD corona, in early remission, [place] [address] maintenance therapy [phone] ([facility]) Social History Tobacco Use Types Packs/Day Years [...] How often do you attend zoroastrianism or scientologist Not asked 03/21/2020 services? Do [...] Sign Reading Time Taken Comments Blood Pressure 110/69 06/04/2020 11:43 AM SOCIAL ORGANIZATION PROFESSOR Pulse 90 06/04/2020 11:43 AM SOCIAL ORGANIZATION PROFESSOR Temperature 36.4 ??C (97.6 ??F) 06/04/2020 11:43 AM SOCIAL ORGANIZATION PROFESSOR Respiratory Rate - - Oxygen Saturation 98% 06/04/2020 11:43 AM SOCIAL ORGANIZATION PROFESSOR Inhaled Oxygen Concentration - - Weight - - Height - - Body Mass Index - - documented in this encounter Patient Instructions Patient InstructionsRajendra Barrett MD - 06/04/2020 11:30 AM CST Continue Subutex 8 mg and 2 mg twice daily. Follow up with Melissa in 4 weeks around 07/02/2020 with lab prior. AL ORGANIZATION PROFESSOR documented in this encounter Progress Notes Rajendra Barrett MD - 06/04/2020 11:30 AM CST MAT Clinic Follow Up Note Discussion Date: 06/04/2020 11:54 AM CHIEF COMPLAINT: Anjali presents for MAT Clinic follow up visit for management of opioid use disorder. Last visit: 05/22/2020 She has been taking Suboxone as prescribed: [...] for buprenorphine follow-up. No cravings, no use. Swelling from even the minimal suboxone she used. Issue with insurance limiting subutex, but trying to get this sorted out. Currently . Stressed, so vaping a lot. Tried wellbutrin but didn't tolerate. Using gum. Doesn't think she can quit at this time. FUNCTIONAL HEALTH Mood: Anxious Sleep: not discussed Appetite: normal, no concerns Employment status changes: not discussed Housing: currently at [employer] housing, but leaving soon because of giving (due August) Current life stressors: housing Relationships: not discussed Libido: not discussed Daily Functioning/ADLs: no concerns or changes Social Support: not discussed Recovery Activities: IOP at [facility] Her leisure activities include... not discussed Her [...] ??? Controlled Substance Monitoring Panel, Urine MAT clinic Standing Status: Future Standing Expiration Date: 06/04/2021 PLAN: Continue with MAT Clinic Treatment Program and plan of care. Patient will follow up in 4 week(s) (Of note, issues with insurance so could only dispense 1 week supply of patient's medication, but after the visit was able to get this sorted out, so in 1 week, will send remaining supply of medicationuntil pt's follow-up visit that she scheduled on 07/03/2020) Patient Instructions Continue Subutex 8 mg and 2 mg twice daily. Follow up with Melissa in 4 weeks around 07/02/2020 with lab prior. Patient goals: Goals ??? Quit using tobacco (cigarettes, smokeless, etc) Started bupropion 05/22, with plans to discontinue vaping. Will use nicorette gum in case of breakthrough craving. Will find some candy or suckers to use during group to occupy her hands/oral fixation ??? secure housing (pt-stated) - would like to apply for [facility] in the future to secure permament housing for her and her child Rajendra Barrett MD AL ORGANIZATION PROFESSOR documented in this encounter Plan of Treatment Not on filedocumented as of this encounter Goals Goal Patient Goal Associated Recent Patient-Stated? Author Type Problems Progress secure housing General Yes Melissa Coronado, DNP, LINING CLEANER, WASHER REPAIRMAN Note: Formatting of this note might be d ifferent from the original. - has applied for several housing lists; waiting to hear back, wants to be near family Quit using tobacco (cigarettes, Tobacco Use No Melissa Coronado, DNP, LINING CLEANER, smokeless, etc) WASHER REPAIRMAN Note: Formatting of this note might be d ifferent from the original. Will use nicorette gum in case of breakt hrough craving. Will find some candy or suckers to use d uring group to occupy her hands/oral fixation documented as of this encounter Results (ABNORMAL) Controlled Substance Monitoring Panel, Urine (07/03/2020 1:30 PM CDT) Component Value Ref Test Analysis Performed At [facility] Range Method Time Signature Barbiturates Negative Cutoff: 07/06/2020 [facility] 200 10:14 AM LABORATORIES ng/mL CDT Cocaine Negative Cutoff: 07/06/2020 [facility] 150 10:14 AM LABORATORIES ng/mL CDT Tetrahydrocannabinol Negative Cutoff: 07/06/2020 [facility] 50 ng/mL 10:14 AM LABORATORIES CDT Comment: ADDITIONAL INFORMATIO N This report is intended for use in clini wilfred monitoring or management of patients. ??It is not inte nded for use in employment-related testing. Codeine Not Detected Cutoff: 25 ng/mL 07/06/2020 10:14 AM [facility] CDT LABORATORIES Comment: Tylenol 3 Fkjtpcm-1-gjol-glucuronide Not Detected Cutoff: 100 07/07/19 21 [facility] ng/mL 10:14 AM CDT LABORATORIES Comment: Metabolite of codeine Morphine Urine Not Detected Cutoff: 25 07/06/2020 10:14 [facility] ng/mL AM CDT LABORATORIES Comment: Emilia Perry, MS Contin; Also a minor metabolite (10%) of codeine and can be seen in low concentra tions (<2,000 ng/mL) with poppy seed ingestion. Kemiewnx-5-btoj-glucuronide Not Detected Cutoff: 100 021 [facility] ng/mL 10:14 AM CDT LABORATORIES Comment: Metabolite of morphine 6-monoacetylmorphine Not Detected Cutoff: 25 07/06/2020 10:1 4 [facility] ng/mL AM CDT LABORATORIES Comment: Metabolite of heroin Hydrocodone Not Detected Cutoff: 25 ng/mL 07/06/2020 10:14 A M [facility] CDT LABORATORIES Comment: Lortab, [place], Vicodin; Also a very phoenix r metabolite of codeine and impurity (<1%) of oxycodone. Norhydrocodone Not Detected Cutoff: 25 07/06/2020 10:14 [facility] ng/mL AM CDT LABORATORIES Comment: Metabolite of hydrocodone Dihydrocodeine Not Detected Cutoff: 25 07/06/2020 10:14 [facility] ng/mL AM CDT LABORATORIES Comment: Metabolite of hydrocodone Hydromorphone Not Detected Cutoff: 25 ng/mL 07/06/2020 10:14 [facility] AM CDT LABORATORIES Comment: Dilaudid, Exalgo; Also a metabolite of h ydrocodone and a minor (<5%) metabolite of morphine. Hmfovhyjtspyb-8-ngzr-glucuronide Not Cutoff: 021 [facility] Detected 100 ng/mL 10:14 AM CDT LABORATORIES Comment: Metabolite of hydromorphone Oxycodone Not Detected Cutoff: 25 ng/mL 07/06/2020 10:14 AM [facility] CDT LABORATORIES Comment: Endocet, Percocet, Oxycontin Noroxycodone Not Detected Cutoff: 25 ng/mL 07/06/2020 10:14 AM [facility] CDT LABORATORIES Comment: Metabolite of oxycodone Oxymorphone Not Detected Cutoff: 25 ng/mL 07/06/2020 10:14 A M [facility] CDT LABORATORIES Comment: Numorphan, Opana; Also a metabolite of o xycodone. Futtetvpdhi-4-cdgn-glucuronide Not Detected Cutoff: 2020 [facility] 100 ng/mL 10:14 AM CDT LABORATORIES Comment: Metabolite of oxymorphone and/or naloxon e (nornaloxone) Noroxymorphone Not Detected Cutoff: 25 07/06/2020 10:14 [facility] ng/mL CDT LABORATORIES Comment: Metabolite of oxymorphone and/or naloxon e (nornaloxone) Fentanyl Not Detected Cutoff: 2 ng/mL 07/06/2020 10:14 AM [facility] CDT LABORATORIES Comment: Actiq, Duragesic, Fentora Norfentanyl Not Detected Cutoff: 2 ng/mL 07/06/2020 10:14 AM [facility] CDT LABORATORIES Comment: Metabolite of fentanyl Meperidine Not Detected Cutoff: 25 ng/mL 07/06/2020 10:14 AM [facility] CDT LABORATORIES Comment: Demerol Normeperidine Not Detected Cutoff: 25 ng/mL 07/06/2020 10:14 [facility] CDT LABORATORIES Comment: Metabolite of meperidine Naloxone Not Detected Cutoff: 25 ng/mL 07/06/2020 10:14 AM [facility] CDT LABORATORIES Comment: Narcan Gxfeuija-1-hudz-glucuronide Not Detected Cutoff: 100 021 [facility] ng/mL 10:14 AM CDT LABORATORIES Comment: Metabolite of naloxone Methadone Not Detected Cutoff: 25 ng/mL 07/06/2020 10:14 AM [facility] CDT LABORATORIES Comment: Dolophine EDDP Not Detected Cutoff: 25 ng/mL 07/06/2020 10:14 AM [facility] CDT LABORATORIES Comment: Metabolite of methadone Propoxyphene Not Detected Cutoff: 25 ng/mL 07/06/2020 10:14 AM [facility] CDT LABORATORIES Comment: Darvon, Darvocet Norpropoxyphene Not Detected Cutoff: 25 07/06/2020 10:14 [facility] ng/mL AM CDT LABORATORIES Comment: Metabolite of propoxyphene Tramadol Not Detected Cutoff: 25 ng/mL 07/06/2020 10:14 AM [facility] CDT LABORATORIES Comment: Tradol, Ultram, Ultracet O-desmethyltramadol Not Detected Cutoff: 25 07/06/2020 10:14 [facility] ng/mL AM CDT LABORATORIES Comment: Metabolite of tramadol Tapentadol Not Detected Cutoff: 25 ng/mL 07/06/2020 10:14 AM [facility] CDT LABORATORIES Comment: Nucynta N-desmethyltapentadol Not Detected Cutoff: 50 07/06/2020 10: 14 [facility] ng/mL AM CDT LABORATORIES Comment: Metabolite of tapentadol Mtjotyvibq-nhso-brbrnxnwtcg Not Detected Cutoff: 100 07/06/ 021 [facility] ng/mL 10:14 AM CDT LABORATORIES Comment: Metabolite of tapentadol Buprenorphine Present (A) Cutoff: 5 ng/mL 07/06/2020 10:14 A M [facility] CDT LABORATORIES Comment: Buprenex, Suboxone Norbuprenorphine Present (A) Cutoff: 5 ng/mL 07/06/2020 10:1 4 [facility] AM CDT LABORATORIES Comment: Metabolite of buprenorphine Norbuprenorphine Present (A) Cutoff: 20 07/06/2020 10:14 [facility] glucuronide ng/mL AM CDT LABORATORIES Comment: Metabolite of buprenorphine Opioid Interpretation - 07/06/2020 10:14 A M CDT [facility] LABORATORIES Comment: Test detected the presence of buprenorph ine and its metabolites (norbuprenorphine, norbupren orphine glucuronide). Suspect use of buprenorphi ne within the past three days. ADDITIONAL INFORMATIO N This test was developed and its performa nce characteristics determined by [facility] in a manner co nsistent with CLIA requirements. This test has not been madeleine ared or approved by the U.S. Food and Drug Administration. Creatinine, Urine 123.5 mg/dL 07/06/2020 10:14 [facility] CDT LABORATORIES Specific [place], 1.021 07/06/2020 10:14 [facility] Urine AM CDT LABORATORIES pH, Urine 5.7 07/06/2020 10:14 [facility] CDT LABORATORIES Oxidants Negative Cutoff: 200 07/06/2020 10:14 [facility] mg/L AM CDT LAB[facility]ATORIES Comment Normal 07/06/2020 10:14 [facility] CDT LABORATORIES Alprazolam Not Detected Cutoff: 10 07/06/2020 10:14 [facility] ng/mL AM CDT LABORATORIES Comment: Xanax Alpha-Hydroxyalprazolam UR Not Detected Cutoff: 10 [facility] ng/mL 10:14 AM CDT LABORATORIES Comment: Metabolite of Alprazolam Alpha-Hydroxyalprazolam Not Detected Cutoff: 50 07/06/2020 [facility] Glucuronide ng/mL 10:14 AM CDT LABORATORIES Comment: Metabolite of Alprazolam Chlordiazepoxide Not Detected Cutoff: 10 07/06/2020 10:14 [facility] ng/mL AM CDT LABORATORIES Comment: Librium Clobazam Not Detected Cutoff: 10 ng/mL 07/06/2020 10:14 AM [facility] CDT LABORATORIES Comment: Frisium, Onfi N-Desmethylclobazam Not Detected Cutoff: 200 07/06/2020 10:1 4 [facility] ng/mL AM CDT LABORATORIES Comment: Metabolite of Clobazam Clonazepam Lvl Not Detected Cutoff: 10 07/06/2020 10:14 [facility] ng/mL AM CDT LABORATORIES Comment: Klonopin, Rivotril 7-Aminoclonazepam Not Detected Cutoff: 10 07/06/2020 10:14 M [facility] ng/mL AM CDT LABORATORIES Comment: Metabolite of Clonazepam Diazepam UR Not Detected Cutoff: 10 07/06/2020 10:14 [facility] Quant ng/mL AM CDT LABORATORIES Comment: Valium Nordiazepam Not Detected Cutoff: 10 ng/mL 07/06/2020 10:14 A [facility] CDT LABORATORIES Comment: Metabolite of Chlordiazepoxide, Diazepam , or Prazepam. Flunitrazepam Not Detected Cutoff: 10 ng/mL 07/06/2020 10:14 [facility] AM CDT LABORATORIES Comment: Rohypnol 7-Aminoflunitrazepam Not Detected Cutoff: 10 07/06/2020 10:1 4 [facility] ng/mL AM CDT LABORATORIES Comment: Metabolite of Flunitrazepam Flurazepam Not Detected Cutoff: 10 ng/mL 07/06/2020 10:14 AM [facility] CDT LABORATORIES Comment: Dalmane 2- hydroxy ethyl Not Detected Cutoff: 10 07/06/2020 10:14 [facility] flurazepam ng/mL AM CDT LABORATORIES Comment: Metabolite of Flurazepam Lorazepam Not Detected Cutoff: 10 ng/mL 07/06/2020 10:14 AM [facility] CDT LAB[facility]ATORIES Comment: Ativan Lorazepam Not Detected Cutoff: 50 07/06/2020 10:14 [facility] Glucuronide ng/mL AM CDT LABORATORIES Comment: Metabolite of Lorazepam Midazolam Not Detected Cutoff: 10 ng/mL 07/06/2020 10:14 AM [facility] CDT LAB[facility]ATORIES Comment: Versed Alpha-Hydroxy Not Detected Cutoff: 10 07/06/2020 10:14 [facility] Midazolam ng/mL AM CDT LABORATORIES Comment: Metabolite of Midazolam Oxazepam Not Detected Cutoff: 10 ng/mL 07/06/2020 10:14 AM [facility] CDT LABORATORIES Comment: Serax; Also a metabolite of Chlordiazepo xide, Diazepam, or Temazepam. Oxazepam Not Detected Cutoff: 50 07/06/2020 10:14 [facility] Glucuronide ng/mL AM CDT LABORATORIES Comment: Metabolite of Oxazepam Prazepam, urine Not Detected Cutoff: 10 07/06/2020 10:14 [facility] ng/mL AM CDT LAB[facility]ATORIES Comment: Centrax Temazepam Not Detected Cutoff: 10 ng/mL 07/06/2020 10:14 AM [facility] CDT LABORATORIES Comment: Restoril; Also a metabolite of Diazepam. Temazepam Not Detected Cutoff: 50 07/06/2020 10:14 [facility] Glucuronide ng/mL AM CDT LABORATORIES Comment: Metabolite of Temazepam Triazolam Not Detected Cutoff: 10 ng/mL 07/06/2020 10:14 AM [facility] CDT LABORATORIES Comment: Halcion Alpha-Hydroxy Not Detected Cutoff: 10 07/06/2020 10:14 [facility] Triazolam ng/mL AM CDT LABORATORIES Comment: Metabolite of Triazolam Zolpidem Not Detected Cutoff: 10 ng/mL 07/06/2020 10:14 AM [facility] CDT LABORATORIES Comment: Ambien Zolpidem Not Detected Cutoff: 10 07/06/2020 [facility] Kgjixg-1-Ecqembcyft acid ng/mL 10:14 AM CDT [place] [facility] Comment: Metabolite of Zolpidem Benzodiazepine, Interp - 07/06/2020 10:14 AM CDT [facility] Comment: No benzodiazepines were detected. The ab sence of expected drug(s) and/or drug metabolite(s) may in dicate non-compliance, altered pharmacokinetics , inappropriate timing of specimen collection relative t o drug administration, diluted/adulterated urin e, or limitations of testing. ADDITIONAL INFORMATIO N This test was developed and its performa nce characteristics determined by [facility] in a manner co nsistent with CLIA requirements. This test has not been madeleine ared or approved by the U.S. Food and Drug Administration. Methamphetamine Not Detected Cutoff: 100 07/06/2020 10:14 [facility] ng/mL AM CDT LABORATORIES Comment: Desoxyn Amphetamines Not Detected Cutoff: 100 07/06/2020 10:14 [facility] ng/mL [facility]T [facility] Comment: Dyanavel XR, Adzenys ER, Adderall, Vyvan se; Also a metabolite of methamphetamine 3,4 Not Cutoff: 07/06/2020 [facility] Methylenedioxymethamphetamine Detected 100 ng/mL 10:14 AM C DT LABORATORIES 3,4 Not Cutoff: 07/06/2020 [facility] Gvzreihcccorug-B-hezjawmpeeautgm Detected 100 ng/mL 10:14 A M CDT LABORATORIES e (MDEA) 3,4 Methylenedioxyamphetamine Not Cutoff: 07/06/2020 [facility] Detected 100 ng/mL 10:14 AM CDT LABORATORIES Comment: Also a metabolite of MDMA and/or MDEA Ephedrines Not Detected Cutoff: 100 07/06/2020 10:14 [facility] ng/mL AM CDT LABORATORIES Psuedoephederine Not Detected Cutoff: 100 07/06/2020 10:14 [facility] ng/mL AM CDT LABORATORIES Comment: Sudafed Phentermine Not Detected Cutoff: 100 07/06/2020 10:14 [facility] ng/mL [facility]T LAB[facility] Comment: Adipex-P, Lomaira, Qsymia Phencyclicine (PCP) Not Detected Cutoff: 20 07/06/2020 10:14 [facility] ng/mL AM CDT LABORATORIES Methylphenidate Not Detected Cutoff: 20 07/06/2020 10:14 [facility] ng/mL AM CDT LAB[facility]ATORIES Comment: Ritalin, Concerta Ritalinic Acid Not Detected Cutoff: 100 07/06/2020 10:14 [facility] ng/mL AM CDT LAB[facility]ATORIES Comment: Metabolite of methylphenidate Stimulant Interpretation - 07/06/2020 10:1 4 AM CDT [facility] Comment: No stimulants were detected. The absence of expected drug(s) and/or drug metabolite(s) may in dicate non-compliance, altered pharmacokinetics , inappropriate timing of specimen collection relative t o drug administration, diluted/adulterated urin e, or limitations of testing. ADDITIONAL INFORMATIO N This test was developed and its performa nce characteristics determined by [facility] in a manner co nsistent with CLIA requirements. This test has not been madeleine ared or approved by the U.S. Food and Drug Administration. Test Performed by: [facility] [address] [place] [address] 16 [place]. Senator: Benigno Selby M.D. Ph. D.; CLIA# [id number] List patient's Not provided 07/06/2020 10:14 AM [facility] CDT LABORATORIES Comment: ADDITIONAL INFORMATIO N Accuracy and completeness of declared me dications on reports solely dependent on information submitted by client. Specimen Anatomical Collection Method Collection Time Receive d Time (Source) Location / / Volume Laterality Urine 07/03/2020 1:30 PM 3:23 CDT PM CDT Rajendra Barrett MD LAB URINE ORDERABLES Performing Organization Address City/State/ZIP Code Phon e Number [facility] see result attachment for specific address documented in this encounter Visit Diagnoses Diagnosis Opioid use disorder, moderate, in early remission, on maintenance therapy (HCC) documented in this encounter Care Teams Garnisher Relationship Specialty Start Date End Date None, Pcp PCP - General Food Preservation Scientist 02/06/19 [address] [place] [address] documented as of this encounter
--- OUTSIDE RECORDS SUMMARY | 2022-01-14 01:45 | XMS_ITS | Encounter Summary ---
:1990 Author Organization [facility] Address [address] [place] [id number] Care Team Providers Name Role Phone None, Pcp Primary Care Provider Unavailable Reason for Visit Reason Onset Date Comments medication question 05/28/2020 Encounter Details Date Type Department Care Team Description 05/28/2020 Telephone [facility] Zainab Rm, oh dication question [facility] Ob /Audio Visual Arts Director MD [address] [place] [address] Social History Tobacco Use Types Packs/Day Years [...] How often do you attend lutheran or synagogue Not asked 03/21/2020 services? Do you belong to any clubs or organizations such as Not askbreanne schilling 03/21/2020 lutheran groups, unions, fraternal or [...] Telephone Encounter - Vanessa Yeager RN - 05/28/2020 3:02 PM CST Patient notified, no further questions or concerns. ONAL VAN OWNER OPERATOR Telephone Encounter - Zainab Rm MD - 05/28/2020 12:54 PM CST Amoxicillin is fine. Commonly used in . risk cannot be ruled out is unfortunately the case with most medications. No toradol. Will sign Rx. Thanks - CM ONAL VAN OWNER OPERATOR Telephone Encounter - Vanessa Yeager RN - 05/28/2020 11:40 AM CST Phone call from patient states she has a tooth abscess and was prescribed Toradol and Amoxicillin until she can have it removed. Advised patient to not take Toradol. Upon review of micromedex for Amoxicillin risk cannot be ruled out. Also, patient is wondering if she can have a new Rx for the suppositories sent to [facility] pharmacy. Rx pended. Will forward to provider to review and advise on the Amoxicillin and suppository. ONAL VAN OWNER OPERATOR documented in this encounter Plan of Treatment Not on filedocumented as of this encounter Goals Goal Patient Goal Associated Recent Patient-Stated? Author Type Problems Progress secure housing General Yes Melissa Coronado, DNP, OCCUPATIONAL HEALTH AND SAFETY ADVISER, BOOT LINER MAKER Note: Formatting of this note might be d ifferent from the original. - has applied for several housing lists; waiting to hear back, wants to be near family Quit using tobacco (cigarettes, Tobacco Use Melissa Bucio, DNP, OCCUPATIONAL HEALTH AND SAFETY ADVISER, smokeless, etc) BOOT LINER MAKER Note: Formatting of this note might be d ifferent from the original. Will use nicorette gum in case of breakt hrough craving. Will find some candy or suckers to use d uring group to occupy her hands/oral fixation documented as of this encounter Visit Diagnoses Diagnosis Other constipation - Primary documented in this encounter Care Teams Coke Worker Relationship Specialty Start Date End Date None, Pcp PCP - General Almond Grinder 02/06/19 [address] [place] [address] documented as of this encounter
--- OUTSIDE RECORDS SUMMARY | 2022-01-14 01:45 | XMS_ITS | Encounter Summary ---
:1990 Author Organization [facility] Address [address] [place] [address] Care Team Providers Name Role Phone None, Pcp Primary Care Provider Unavailable Encounter Details Date Type Department Care Team Description 07/03/2020 Lab SE Lab Opioid use disorder, moderat e, [address] in early remission, [place] [address] maintenance therapy ([facility]) [phone] Social History Tobacco Use Types Packs/Day Years [...] How often do you attend congregational or christian Not asked 03/21/2020 services? Do you belong to any clubs or organizations such as Not askbreanne schilling 03/21/2020 congregational groups, unions, fraternal or [...] place to sleep or slept in a nursing home (including now)? Education Answer Date Recorded [...] secure housing General Yes Melissa Coronado, DNP, HERBICIDE SPRAYER, PRODUCTION CONTROL COORDINATOR Note: Formatting of this note might be d ifferent from the original. - has applied for several housing lists; waiting to hear back, wants to be near family Quit using tobacco (cigarettes, Tobacco Use No Melissa Coronado, DNP, HERBICIDE SPRAYER, smokeless, etc) PRODUCTION CONTROL COORDINATOR Note: Formatting of this note might be d ifferent from the original. Will use nicorette gum in case of breakt hrough craving. Will find some candy or suckers to use d uring group to occupy her hands/oral fixation documented as of this encounter Procedures Procedure Name Priority Date/Time Associated Diagnosis Comme nts CONTROLLED Routine 07/03/2020 1:30 PM Opioid use disorder, R esults for this SUBSTANCES CDT moderate, in early procedure are in MONITORING PANEL, remission, on the resul URINE maintenance therapy section. (HCC) documented in this encounter Results (ABNORMAL) Controlled Substance Monitoring Panel, Urine (07/03/2020 1:30 PM CDT) Component Value Ref Test Analysis Performed At [facility] Range Method Time Signature Barbiturates Negative Cutoff: 07/06/2020 [facility] 200 10:14 AM LABORATORIES ng/mL CDT Cocaine Negative Cutoff: 07/06/2020 [facility] 150 10:14 AM LABORATORIES ng/mL CDT Tetrahydrocannabinol Negative Cutoff: 07/06/2020 [facility] 50 ng/mL 10:14 AM LABORATORIES CDT Comment: ADDITIONAL INFORMATIO N This report is intended for use in clini wilfred monitoring or management of patients. ??It is not inte nded for use in employment-related testing. Codeine Not Detected Cutoff: 25 ng/mL 07/06/2020 10:14 AM [facility] CDT LABORATORIES Comment: Tylenol 3 Ixcoftb-2-pafr-glucuronide Not Detected Cutoff: 100 07/07/19 21 [facility] ng/mL 10:14 AM CDT LABORATORIES Comment: Metabolite of codeine Morphine Urine Not Detected Cutoff: 25 07/06/2020 10:14 [facility] ng/mL AM CDT LABORATORIES Comment: Emilia Perry, MS Contin; Also a minor metabolite (10%) of codeine and can be seen in low concentra tions (<2,000 ng/mL) with poppy seed ingestion. Jdulvuqk-8-jdhx-glucuronide Not Detected Cutoff: 100 021 [facility] ng/mL 10:14 AM CDT LABORATORIES Comment: Metabolite of morphine 6-monoacetylmorphine Not Detected Cutoff: 25 07/06/2020 10:1 4 [facility] ng/mL AM CDT LABORATORIES Comment: Metabolite of heroin Hydrocodone Not Detected Cutoff: 25 ng/mL 07/06/2020 10:14 A M [facility] CDT LABORATORIES Comment: Lortab, [place], Vicodin; Also a very [place] r metabolite of codeine and impurity (<1%) of oxycodone. Norhydrocodone Not Detected Cutoff: 07/06/2020 10:14 [facility] ng/mL AM CDT LABORATORIES Comment: Metabolite of hydrocodone Dihydrocodeine Not Detected Cutoff: 25 07/06/2020 10:14 [facility] ng/mL AM CDT LABORATORIES Comment: Metabolite of hydrocodone Hydromorphone Not Detected Cutoff: 25 ng/mL 07/06/2020 10:14 [facility] AM CDT LABORATORIES Comment: Dilaudid, Exalgo; Also a metabolite of h ydrocodone and a minor (<5%) metabolite of morphine. Pmgeogbfwhgwt-6-gyyu-glucuronide Not Cutoff: 021 [facility] Detected 100 ng/mL 10:14 AM CDT LABORATORIES Comment: Metabolite of hydromorphone Oxycodone Not Detected Cutoff: 25 ng/mL 07/06/2020 10:14 AM [facility] CDT LABORATORIES Comment: Endocet, Percocet, Oxycontin Noroxycodone Not Detected Cutoff: 25 ng/mL 07/06/2020 10:14 AM [facility] CDT LABORATORIES Comment: Metabolite of oxycodone Oxymorphone Not Detected Cutoff: 25 ng/mL 07/06/2020 10:14 A M [facility] CDT LABORATORIES Comment: Numorphan, Opana; Also a metabolite of o xycodone. Ognaduuibsq-8-ncsu-glucuronide Not Detected Cutoff: 2020 [facility] 100 ng/mL 10:14 AM CDT LABORATORIES Comment: Metabolite of oxymorphone and/or naloxon e (nornaloxone) Noroxymorphone Not Detected Cutoff: 25 07/06/2020 10:14 [facility] ng/mL AM CDT LABORATORIES Comment: Metabolite of oxymorphone and/or naloxon e (nornaloxone) Fentanyl Not Detected Cutoff: 2 ng/mL 07/06/2020 10:14 AM [facility] CDT LABORATORIES Comment: Actiq, Duragesic, Fentora Norfentanyl Not Detected Cutoff: 2 ng/mL 07/06/2020 10:14 AM [facility] CDT LABORATORIES Comment: Metabolite of fentanyl Meperidine Not Detected Cutoff: 25 ng/mL 07/06/2020 10:14 AM [facility] CDT LABORATORIES Comment: Demerol Normeperidine Not Detected Cutoff: 25 ng/mL 07/06/2020 10:14 [facility] CDT LABORATORIES Comment: Metabolite of meperidine Naloxone Not Detected Cutoff: 25 ng/mL 07/06/2020 10:14 AM [facility] CDT LABORATORIES Comment: Narcan Zetbiiqg-0-iydu-glucuronide Not Detected Cutoff: 100 021 [facility] ng/mL 10:14 AM CDT LABORATORIES Comment: Metabolite of naloxone Methadone Not Detected Cutoff: 25 ng/mL 07/06/2020 10:14 AM [facility] CDT LABORATORIES Comment: Dolophine EDDP Not Detected Cutoff: 25 ng/mL 07/06/2020 10:14 AM [facility] CDT LABORATORIES Comment: Metabolite of methadone Propoxyphene Not Detected Cutoff: 25 ng/mL 07/06/2020 10:14 AM [facility] CDT LABORATORIES Comment: Darvon, Darvocet Norpropoxyphene Not Detected Cutoff: 25 07/06/2020 10:14 [facility] ng/mL AM CDT LAB[facility]ATOR[facility] Comment: Metabolite of propoxyphene Tramadol Not Detected Cutoff: 25 ng/mL 07/06/2020 10:14 AM [facility] CDT LABORATORIES Comment: Tradol, Ultram, Ultracet O-desmethyltramadol Not Detected Cutoff: 25 07/06/2020 10:14 [facility] ng/mL AM CDT LABORATORIES Comment: Metabolite of tramadol Tapentadol Not Detected Cutoff: 25 ng/mL 07/06/2020 10:14 AM [facility] CDT LABORATORIES Comment: Nucynta N-desmethyltapentadol Not Detected Cutoff: 50 07/06/2020 10: 14 [facility] ng/mL AM CDT LABORATORIES Comment: Metabolite of tapentadol Fgeukeagrv-sylh-atijfbzttcl Not Detected Cutoff: 100 021 [facility] ng/mL 10:14 AM CDT LABORATORIES Comment: Metabolite of tapentadol Buprenorphine Present (A) Cutoff: 5 ng/mL 07/06/2020 10:14 A M [facility] CDT LABORATORIES Comment: Buprenex, Suboxone Norbuprenorphine Present (A) Cutoff: 5 ng/mL 07/06/2020 10:1 4 [facility] CDT LABORATORIES Comment: Metabolite of buprenorphine Norbuprenorphine Present (A) Cutoff: 20 07/06/2020 10:14 [facility] glucuronide ng/mL AM CDT LABORATORIES Comment: Metabolite of buprenorphine Opioid Interpretation - 07/06/2020 10:14 [facility] Comment: Test detected the presence of buprenorph ine and its metabolites (norbuprenorphine, norbupren orphine glucuronide). Suspect use of buprenorphi ne within the past three days. ADDITIONAL INFORMATIO N This test was developed and its performa nce characteristics determined by [facility] in a manner co nsistent with CLIA requirements. This test has not been madeleine ared or approved by the U.S. Food and Drug Administration. Creatinine, Urine 123.5 mg/dL 07/06/2020 10:14 [facility] AM CDT LABORATORIES Specific [place], 1.021 07/06/2020 10:14 [facility] Urine AM CDT LABORATORIES pH, Urine 5.7 07/06/2020 10:14 [facility] AM CDT LABORATORIES Oxidants Negative Cutoff: 200 07/06/2020 10:14 [facility] mg/L AM CDT LAB[facility]ATORIES Comment Normal 07/06/2020 10:14 [facility] AM CDT LABORATORIES Alprazolam Not Detected Cutoff: 10 07/06/2020 10:14 [facility] ng/mL AM CDT LABORATORIES Comment: Xanax Alpha-Hydroxyalprazolam UR Not Detected Cutoff: 10 [facility] ng/mL 10:14 AM CDT LABORATORIES Comment: Metabolite of Alprazolam Alpha-Hydroxyalprazolam Not Detected Cutoff: 50 07/06/2020 [facility] Glucuronide ng/mL 10:14 AM CDT LABORATORIES Comment: Metabolite of Alprazolam Chlordiazepoxide Not Detected Cutoff: 10 07/06/2020 10:14 [facility] ng/mL AM CDT LABORATORIES Comment: Librium Clobazam Not Detected Cutoff: 10 ng/mL 07/06/2020 10:14 AM [facility] CDT LABORATORIES Comment: Frisium, Onfi N-Desmethylclobazam Not Detected Cutoff: 200 07/06/2020 10:1 4 [facility] ng/mL AM CDT LABORATORIES Comment: Metabolite of Clobazam Clonazepam Lvl Not Detected Cutoff: 10 07/06/2020 10:14 [facility] ng/mL AM CDT LABORATORIES Comment: Klonopin, Rivotril 7-Aminoclonazepam Not Detected Cutoff: 10 07/06/2020 10:14 [facility] ng/mL AM CDT LABORATORIES Comment: Metabolite of Clonazepam Diazepam UR Not Detected Cutoff: 10 07/06/2020 10:14 [facility] Quant ng/mL AM CDT LABORATORIES Comment: Valium Nordiazepam Not Detected Cutoff: 10 ng/mL 07/06/2020 10:14 A M [facility] CDT LABORATORIES Comment: Metabolite of Chlordiazepoxide, Diazepam , or Prazepam. Flunitrazepam Not Detected Cutoff: 10 ng/mL 07/06/2020 10:14 [facility] AM CDT LABORATORIES Comment: Rohypnol 7-Aminoflunitrazepam Not Detected Cutoff: 10 07/06/2020 10:1 4 [facility] ng/mL AM CDT LABORATORIES Comment: Metabolite of Flunitrazepam Flurazepam Not Detected Cutoff: 10 ng/mL 07/06/2020 10:14 AM [facility] CDT LABORATORIES Comment: Dalmane 2- hydroxy ethyl Not Detected Cutoff: 10 07/06/2020 10:14 [facility] flurazepam ng/mL AM CDT LABORATORIES Comment: Metabolite of Flurazepam Lorazepam Not Detected Cutoff: 10 ng/mL 07/06/2020 10:14 AM [facility] CDT LABORATORIES Comment: Ativan Lorazepam Not Detected Cutoff: 50 07/06/2020 10:14 [facility] Glucuronide ng/mL AM CDT LABORATORIES Comment: Metabolite of Lorazepam Midazolam Not Detected Cutoff: 10 ng/mL 07/06/2020 10:14 AM [facility] CDT LABORATORIES Comment: Versed Alpha-Hydroxy Not Detected Cutoff: 10 07/06/2020 10:14 [facility] Midazolam ng/mL AM CDT LABORATORIES Comment: Metabolite of Midazolam Oxazepam Not Detected Cutoff: 10 ng/mL 07/06/2020 10:14 AM [facility] CDT LABORATORIES Comment: Serax; Also a metabolite of Chlordiazepo xide, Diazepam, or Temazepam. Oxazepam Not Detected Cutoff: 50 07/06/2020 10:14 [facility] Glucuronide ng/mL AM CDT LABORATORIES Comment: Metabolite of Oxazepam Prazepam, urine Not Detected Cutoff: 10 07/06/2020 10:14 [facility] ng/mL AM CDT LABORATORIES Comment: Centrax Temazepam Not Detected Cutoff: 10 ng/mL 07/06/2020 10:14 AM [facility] CDT LABORATORIES Comment: Restoril; Also a metabolite of Diazepam. Temazepam Not Detected Cutoff: 50 07/06/2020 10:14 [facility] Glucuronide ng/mL AM CDT LABORATORIES Comment: Metabolite of Temazepam Triazolam Not Detected Cutoff: 10 ng/mL 07/06/2020 10:14 AM [facility] CDT LABORATORIES Comment: Halcion Alpha-Hydroxy Not Detected Cutoff: 10 07/06/2020 10:14 [facility] Triazolam ng/mL AM CDT LABORATORIES Comment: Metabolite of Triazolam Zolpidem Not Detected Cutoff: 10 ng/mL 07/06/2020 10:14 AM [facility] CDT LABORATORIES Comment: Ambien Zolpidem Not Detected Cutoff: 10 07/06/2020 [facility] Bhgeqh-7-Kswzzkdycj acid ng/mL 10:14 AM CDT [facility] Comment: Metabolite of Zolpidem Benzodiazepine, Interp - 07/06/2020 10:14 AM CDT [facility] LABORATORIES Comment: No benzodiazepines were detected. The ab sence of expected drug(s) and/or drug metabolite(s) may in dicate non-compliance, altered pharmacokinetics , inappropriate timing of specimen collection relative t o drug administration, diluted/adulterated urin e, or limitations of testing. ADDITIONAL INFORMATIO N This test was developed and its performa nce characteristics determined by [facility] in a manner co nsistent with CLIA [...] metabolite of methamphetamine 3,4 Not Cutoff: 07/06/2020 [facility] Methylenedioxymethamphetamine Detected 100 ng/mL 10:14 AM C DT LABORATORIES 3,4 Not Cutoff: 07/06/2020 [facility] Soozvpiwawfwms-B-yohbovasdinefxy Detected 100 ng/mL 10:14 A M CDT LABORATORIES e (MDEA) 3,4 Methylenedioxyamphetamine Not Cutoff: 07/06/2020 [facility] Detected 100 ng/mL 10:14 AM CDT LABORATORIES Comment: Also a metabolite of MDMA and/or [facility] Ephedrines Not Detected Cutoff: 100 07/06/2020 10:14 [facility] ng/mL AM CDT LABORATORIES Psuedoephederine Not Detected Cutoff: 100 07/06/2020 10:14 [facility] ng/mL AM CDT LABORATORIES Comment: Sudafed Phentermine Not Detected Cutoff: 100 07/06/2020 10:14 [facility] ng/mL CDT LAB[facility] Comment: Adipex-P, Lomaira, Qsymia Phencyclicine (PCP) Not Detected Cutoff: 20 07/06/2020 10:14 [facility] ng/mL AM CDT LABORATORIES Methylphenidate Not Detected Cutoff: 20 07/06/2020 10:14 [facility] ng/mL AM CDT LABORATORIES Comment: Ritalin, Concerta Ritalinic Acid Not Detected Cutoff: 100 07/06/2020 10:14 [facility] ng/mL AM CDT LAB[facility]ATORIES Comment: Metabolite of methylphenidate Stimulant Interpretation - 07/06/2020 10:1 4 AM CDT [facility] Comment: No stimulants were detected. The absence of expected drug(s) and/or drug metabolite(s) may in dicate non-compliance, altered pharmacokinetics , inappropriate timing of specimen collection relative t o drug administration, diluted/adulterated urin e, or limitations of testing. ADDITIONAL INFORMATIO N This test was developed and its performa nce characteristics determined by [facility] in a manner co nsistent with CLIA requirements. This test has not been madeleine ared or approved by the U.S. Food and Drug Administration. Test Performed by: [place] [address] Ceramic Chemist: Benigno Selby M.D. Ph. D.; CLIA# [id number] List patient's Not provided 07/06/2020 10:14 AM [facility] CDT LABORATORIES Comment: ADDITIONAL INFORMATIO N Accuracy and completeness of declared me dications on reports solely dependent on information submitted by client. Specimen Anatomical Collection Method Collection Time Receive d Time (Source) Location / / Volume Laterality Urine 07/03/2020 1:30 PM 3:23 CDT PM CDT Rajendra Barrett MD LAB URINE ORDERABLES Performing Organization Address City/State/ZIP Code Phon e Number [facility] see result attachment for specific address documented in this encounter Visit Diagnoses Diagnosis Opioid use disorder, moderate, in early remission, on maintenance therapy (HCC) documented in this encounter Care Teams Probate Lawyer Relationship Specialty Start Date End Date None, Pcp PCP - General Trimming Machine Set Up Operator 02/06/19 [address] [place] [phone] documented as of this encounter
--- OUTSIDE RECORDS SUMMARY | 2022-01-14 01:45 | XMS_ITS | Encounter Summary ---
:1990 Author Organization [facility] Address [address] [place] [id number] Care Team Providers Name Role Phone None, Pcp Primary Care Provider Unavailable Encounter Details Date Type Department Care Team Description 05/14/2020 Orders Only [facility] Women's Health Monica Crowder MD [facility] Canal Driver [address] [facility] [address] [place] [phone] (Wo rk) Social History Tobacco Use Types [...] How often do you attend anabaptist or methodist Not asked 03/21/2020 services? Do you belong [...] place to sleep or slept in a penitentiary (including now)? Education Answer Date Recorded What [...] secure housing General Yes Melissa Coronado, DNP, FISH FARMER, CRYPTOANALYSIS TEACHER Note: Formatting of this note might be d ifferent from the original. - has applied for several housing lists; waiting to hear back, wants to be near family documented as of this encounter Visit Diagnoses Not on filedocumented in this encounter Care Teams Acoustical Engineer Relationship Specialty Start Date End Date None, Pcp PCP - General Sharepoint Trainer 02/06/19 [address] [place] [address] documented as of this encounter
--- OUTSIDE RECORDS SUMMARY | 2022-01-14 01:45 | XMS_ITS | Encounter Summary ---
:1990 Author Organization [facility] Address [address] [place] [address] Care Team Providers Name Role Phone None, Pcp Primary Care Provider Unavailable Encounter Details Date Type Department Care Team Description 06/11/2020 Orders Only [facility] Rajendra Barrett, O pioid use disorder, - Jane Gutierrez MD moderate, in early [address] maintenance therapy [place], [place] ([facility]) [phone] Social History Tobacco Use Types Packs/Day Years [...] How often do you attend samaritan or restorationism Not asked 03/21/2020 services? Do you belong to any clubs or organizations such as Not askbreanne schilling 03/21/2020 samaritan groups, unions, fraternal or [...] on file documented as of this encounter Progress Notes Rajendra Barrett MD - 06/11/2020 7:05 AM CST Due to issue with insurance, only able to fill 1 week on 06/04/2020. Sent remainder of prescription today until 07/03 follow-up appt. Rajendra Barrett MD NEERING TECHNOLOGIST documented in this encounter Plan of Treatment Not on filedocumented as of this encounter Goals Goal Patient Goal Associated Recent Patient-Stated? Author Type Problems Progress secure housing General Yes Melissa Coronado, DNP, DIRECTOR OF MARKETING ANALYTICS, LINEMAN A CLASS Note: Formatting of this note might be d ifferent from the original. - has applied for several housing lists; waiting to hear back, wants to be near family Quit using tobacco (cigarettes, Tobacco Use No Melissa Coronado, DNP, DIRECTOR OF MARKETING ANALYTICS, smokeless, etc) [employer] Note: Formatting of this note might be d ifferent from the original. Will use nicorette gum in case of breakt hrough craving. Will find some candy or suckers to use d uring group to occupy her hands/oral fixation documented as of this encounter Visit Diagnoses Diagnosis Opioid use disorder, moderate, in early remission, on maintenance therapy (HCC) documented in this encounter Care Teams Home Therapy Teacher Relationship Specialty Start Date End Date None, Pcp PCP - General Nutrition Internship 02/06/[address] [place] [phone] documented as of this encounter
--- OUTSIDE RECORDS SUMMARY | 2022-01-14 01:46 | XMS_ITS | Encounter Summary ---
:1990 Author Organization [facility] Address [address] [place] [address] Care Team Providers Name Role Phone None, Pcp Primary Care Provider Unavailable Encounter Details Date Type Department Care Team Description 04/24/2020 Orders Only [facility] [place] Pooja Diaz MD [facility] Family Consumer Scientist [address] [facility] [place] [address] [place] [phone] (Wo rk) Social History Tobacco Use Types [...] 03/21/2020 relatives? How often do you attend tenriism or mosque Not asked 03/21/2020 services? Do you belong to any clubs or organizations such as Argelia schilling 03/21/2020 tenriism groups, unions, fraternal or athletic groups, or [...] been in contact with No / Unsure 04/01/2020 8:38 PM FULL STACK NET DEVELOPER someone who was confirmed or suspected to have Coronavirus / COVID-19? documented as of this encounter Plan of Treatment Not on filedocumented as of this encounter Goals Goal Patient Goal Associated Recent Patient-Stated? Author Type Problems Progress secure housing General Yes Melissa Coronado, DNP, GUN SEALING MACHINE OPERATOR, ORGANIZATIONAL RESEARCH CONSULTANT Note: Formatting of this note might be d ifferent from the original. - has applied for several housing lists; waiting to hear back, wants to be near family documented as of this encounter Visit Diagnoses Not on filedocumented in this encounter Care Teams Pan Dumper Relationship Specialty Start Date End Date None, Pcp PCP - General Operator Electronic Warfare 02/06/19 [address] [place] [phone] documented as of this encounter
--- OUTSIDE RECORDS SUMMARY | 2022-01-14 01:46 | XMS_ITS | Encounter Summary ---
:1990 Author Organization [facility] Address [address] [place] [id number] Care Team Providers Name Role Phone None, Pcp Primary Care Provider Unavailable Encounter Details Date Type Department Care Team Description 05/01/2020 Telephone [facility] Pet Store Merchandiser Mona Bee, [facility] [address] [place] [address] [address] [place] [address] [place] [address] Social History Tobacco Use Types [...] How often do you attend rastafarian or zoroastrian Not asked 03/21/2020 services? Do you belong to any clubs or organizations such as Not chinmay schilling 03/21/2020 rastafarian groups, unions, fraternal or [...] with No / Unsure 04/01/2020 8:38 PM ELECTRONIC INTELLIGENCE OFFICER someone who was confirmed or suspected to have Coronavirus / COVID-19? documented as of this encounter Miscellaneous Notes Telephone Encounter - Melissa Coronado DNP, NICHOLAS, MIK - 05/02/2020 10:14 AM CST Thanks Mona! TRONIC INTELLIGENCE OFFICER Telephone Encounter - RUSSELL Carranza, YARD RIGGER - 05/01/2020 2:19 PM ELECTRONIC INTELLIGENCE OFFICER Casino Slot Supervisor met with pt on this date. She was pleasant and engaged well in conversation. She states she has moved into a sober house through [facility] and likes it there. She goes to intensive outpatient rehab through [facility] several times/week. Her 6-year-old son is currently living with his yolanda greenfield but pt states she is able to have him come and stay with her at the sober house and she was going to see if she could have him over the weekend. LOPEZ is currently in residential but will be released in July. Pt says they plan on remaining together but she isn't sure what that will look like once he is out. She has a worker through the [employer] program who has assisted her in getting the necessary supports and services set up and will help her to get supplies for the baby as well. She receives EBT and MFIP and plans on signing up for [place]. She is working on getting her medical assistance transferred from [facility] to [facility]. She states she has a co-pay on some medications that can range from $1.0 0-$3.00 but she is able to afford this. She will be receiving straight MA beginning in June so she is hopeful she won't have co-pays anymore. Pt remains motivated to stay sober, stating her son and baby on the way are 2 of her biggest reasons. She also states her family remains supportive of her. Casino Slot Supervisor encouraged sobriety and for her to continue to reach out to her supports for resources and/or services that she may need. All questions and concerns addressed. No further [facility] follow-up required at this time. TRONIC INTELLIGENCE OFFICER documented in this encounter Plan of Treatment Not on filedocumented as of this encounter Goals Goal Patient Goal Associated Recent Patient-Stated? Author Type Problems Progress secure housing General Yes Melissa Coronado, DNP, LIGHT OIL OPERATOR, ROD MACHINE OPERATOR Note: Formatting of this note might be d ifferent from the original. - has applied for several housing lists; waiting to hear back, wants to be near family Quit using tobacco (cigarettes, Tobacco Use No Melissa Coronado, DNP, LIGHT OIL OPERATOR, smokeless, etc) ROD MACHINE OPERATOR Note: Formatting of this note might be d ifferent from the original. Will use nicorette gum in case of breakt hrough craving. Will find some candy or suckers to use d uring group to occupy her hands/oral fixation documented as of this encounter Visit Diagnoses Not on filedocumented in this encounter Care Teams Administrative Liaison Relationship Specialty Start Date End Date None, Pcp PCP - General Sample Mounter 02/06/[address] [place] [id number] documented as of this encounter
--- OUTSIDE RECORDS SUMMARY | 2022-01-14 01:46 | XMS_ITS | Encounter Summary ---
:1990 Author Organization [facility] Address [address] [place] [address] Care Team Providers Name Role Phone None, Pcp Primary Care Provider Unavailable Reason for Visit Reason Onset Date Comments Med Refill 05/08/2020 Encounter Details Date Type Department Care Team Description 05/08/2020 Telephone SE MEDICATION ASSISTED Gayla Estrada, Med Refill TREATMENT RANGE SCIENTIST [address] [address] [place] [address] [place] [address] Social History Tobacco Use Types [...] 03/21/2020 relatives? How often do you attend advent or amish Not asked 03/21/2020 services? Do you belong to any clubs or organizations such as Argelia schilling 03/21/2020 advent groups, unions, fraternal or athletic groups, or [...] Telephone Encounter - Farheen Liu RN - 05/08/2020 12:13 PM MARSHMALLOW MACHINE OPERATOR Patient notified HMALLOW MACHINE OPERATOR Telephone Encounter - Jenn Little MD - 05/08/2020 12:07 PM CST Sent. Thanks, Jenn Little MD HMALLOW MACHINE OPERATOR Telephone Encounter - Vanessa Yeager RN - 05/08/2020 9:57 AM CST Forwarding to provider to prescribe. HMALLOW MACHINE OPERATOR Telephone Encounter - Gayla Estrada LPN - 05/08/2020 9:45 AM MARSHMALLOW MACHINE OPERATOR Patient described during her visit today that she is in need of a refill for her Vitamin B-6. 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 Thanks! HMALLOW MACHINE OPERATOR documented in this encounter Plan of Treatment Not on filedocumented as of this encounter Goals Goal Patient Goal Associated Recent Patient-Stated? Author Type Problems Progress secure housing General Yes Melissa Coronado, DNP, SOLAR PHOTOVOLTAIC ELECTRICIAN, POOL NURSE Note: Formatting of this note might be d ifferent from the original. - has applied for several housing lists; waiting to hear back, wants to be near family Quit using tobacco (cigarettes, Tobacco Use Melissa Bucio, DNP, SOLAR PHOTOVOLTAIC ELECTRICIAN, smokeless, etc) POOL NURSE Note: Formatting of this note might be d ifferent from the original. Will use nicorette gum in case of breakt hrough craving. Will find some candy or suckers to use d uring group to occupy her hands/oral fixation documented as of this encounter Visit Diagnoses Not on filedocumented in this encounter Care Teams Deli Cook Relationship Specialty Start Date End Date None, Pcp PCP - General Spray Gun Striper 02/06/19 [address] [place] [address] documented as of this encounter
--- OUTSIDE RECORDS SUMMARY | 2022-01-14 01:46 | XMS_ITS | Encounter Summary ---
:1990 Author Organization [facility] Address [address] [place] [id number] Care Team Providers Name Role Phone None, Pcp Primary Care Provider Unavailable Reason for Referral Consultation (Routine) - Closed Specialty Diagnoses / Procedures Referred By Contact Refer red To Contact Diagnoses FH: congenital heart problem Molly Shea MD [facility] [address] [place] [address] [address] [place] [address] [place] [address] Phone: Fax: Referral ID Status Reason Start Date Expiration Date Visits Requ ested Visits Authorized [id number] Closed 05/14/2020 05/15/2021 1 1 Scheduling Instructions hazel 10/04/20 HEALTH TRAVEL OT Reason for Visit Reason Comments Consult Perinatology Consultation (Routine) - Closed Specialty Diagnoses / Procedures Referred By Contact Refer red To Contact Perinatology Diagnoses Combined drug dependence, continuous abuse (HCC) Monica Delgado MD [facility] Perinatology [address] [facility] [address] [place] [address] [phone] Referral ID Status Reason Start Date Expiration Date Visits V isits Requested Authorized [id number] Closed Specialty 03/21/2020 03/21/2021 1 1 Services Required Encounter Details Date Type Department Care Team Description 05/14/2020 Consult [facility] Molly Shea MD Combined drug dependence, continuous abu se ([facility]) (Primary Dx); Perinatology [address] History of hepatitis C virus infection; [address] FH: congenital heart problem; [place] [address] [place] Supervision of high risk pre gnancy, antepartum; [phone] Opioid dependence in remission (HCC); [phone] (Wo rk) Opioid use disorder, moderate, in early remission, on maintenance therapy (HCC); Anxiety; Irritable bowel syndrome with constipation; Mild intermitte nt asthma without complication; Migraine withou t aura and without status migrainosus, not intractable Social History Tobacco Use Types Packs/Day Years [...] 03/21/2020 relatives? How often do you attend mandaen or yazdanism Not asked 03/21/2020 services? Do you belong to any clubs or organizations such as Argelia schilling 03/21/2020 mandaen groups, unions, fraternal or athletic groups, or [...] Sign Reading Time Taken Comments Blood Pressure 134/68 05/14/2020 10:58 AM HOME HEALTH TRAVEL OT Pulse - - Temperature - - Respiratory Rate - - Oxygen Saturation - - Inhaled Oxygen Concentration - - Weight 82.9 kg (182 lb 12.8 oz) 05/14/2020 10:58 AM HOME HEALTH TRAVEL OT Height - - Body Mass Index 30.83 04/10/2020 3:24 PM HOME HEALTH TRAVEL OT documented in this encounter Patient Instructions Patient InstructionsPinky Edmond LPN - 05/14/2020 10:00 AM HOME HEALTH TRAVEL OT OB19 Who to Call Please contact the OBGYN department at [phone] if you experience vaginal bleeding, vaginal spotting, abnormal vaginal discharge, or have any questions/concerns. Classes Group Classes and Center Tours ARE NOT BEING OFFERED CURRENTLY due to the Coronaviruspandemic. Here is a link to a short YouTube video tour of our beautiful Center: [email or web address].youtube.com/watch?[email or web address] [facility] has a brand new digital education platform just for you! Pacheco?? offers anytime, anywhere, parent education designed to give you convenient access to valuable, research-based information on care, labor and , care, , and care, including lots of videos! Pahceco?? can also provide you with unique tools like a kick counter, contraction timer, personal journal, and more. How to get access to OMGPOP??: 1. [place] for the program by going to: [email or web address] and filling out the form. ??? After you have completed the registration, [facility] will send you an email from [email or web address] providing you with your login and password information. ??? Please note: the email will come from OM[facility] and not [facility]. If you do not receive a confirmation, be sure to check your email's spam folder. 2. After you have created your account, you can access [facility] in two ways: 1. Download the free mobile talia from your talia store. Search ???OMGP[facility].?? 2. Login on the OM[facility] website: [email or web address]. COVID-19 (Coronavirus) We understand your concern about COVID-19 (Coronavirus). PLEASE READ. You are responsible for this information. To keep you and your family safe, we have the following recommendations: ??? Wash your hands often with soap and water for at least 20 seconds. ??? If you can't use soap and water, please use alcohol-based hand meal attendant, like Purell. ??? Cough into your elbow, NOT your hands. ??? Avoid touching your eyes, nose, and mouth. ??? Try to avoid being around people who are sick. ??? If you are sick, please stay home from school, work, and other activities. ??? If you are sick or have had contact with a person who has COVID-19: ??? Call the [facility] Nurse Triage line at [phone] during normal clinic hours. ??? After clinic hours, use the [facility] Emergency Room if you are ill and [...] As of November 03 2019, everyone in [place] must wear a face covering in stores and indoor gathering places. ??? Using even a simple cloth face covering can slow the spread of the virus and help people who mayhave the virus and do not know it from giving it to others. As of March 05, 2020, [facility] has implemented a ???No Visitor?? policy for the most part. These restrictions are in place to protect everyone - patients, visitors and staff - from COVID-19. RELATION[facility]IP ASSOCIATE patients may have another person with them ONLY for the following situations: ?? ONE other adult may come with you for your ???OB?? or anatomy ultrasound at around 20 weeks of . ?? ONE support person may stay with you during your whole stay on the Center when you deliver. ?? A Certified Deputy Sheriff may also be with you when you [...] come with you for one-to-one classes. ?? The same person should drop you off for your surgery, then pick you up when you are ready to go. That person may not come in the building with you. Instructions for your Clinic Visits: If you have a fever, cough, body aches, a hard time catching your breath, or have been around someone who has COVID-19: o DO NOT COME to the clinic until you call, even if you have an appointment. o Call us first at [phone]. ??? You must wear a mask while inside the [facility]. ??? Do NOT bring anyone with [...] the Center without calling us first - [phone]. ??? Come in the [facility] doors, like you do for appointments. ??? [...] when you come in, including: ??? Your infant car seat ??? [place] for meals for [...] more information about COVID-19 in and ? https://www.acog.org/patient-resources/faqs//usvkutesrvj-amlflgbbg-rui- HEALTH TRAVEL OT documented in this encounter Progress Notes Molly Shea MD - 05/14/2020 10:00 AM CST Perinatology Consult Referring Provider: Monica Delgado MD Indication for consult Patient Active Problem [...] on maintenance therapy (HCC) ??? Weight gain HPI 30 y.o. G 3 P 1011 at 19w4d with best Estimated Date of Delivery: 10/04/20 by 8- week ultrasound Prior child with congenital heart defect ASD/PFO no surgery Drug dependence, opioid use disorder in early remission On maintenance therapy HPI: Longstanding drug use since age 20. Drugs of choice- methamphetamines heroin and cocaine. Positive history of IV drug use. last use February 2020. Now on buprenorphine/Subutex 20 mg daily, prescribed by addiction physician at [facility] clinic. [facility] [place] [facility] --> recent discharge to an outpatient [facility] facility [facility] [place]. In intensive therapy 5 days a week. Father of the baby incarcerated/history of drug and alcohol use but plans to reunite under 1 roof. No involuntary termination of parental rights. 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 IBS symptoms Constipation predominant and dependent upon Dulcolax suppositories for bowel movements since childhood; not been seen yet by GI medicine due to Covid Hepatitis C infection Prior infection with no ongoing viral load in 2018 Routine PNC Rh positive Glucola Labs Tdap Flu GBS PPBC Review of Systems: No bleeding, no pain, no leakage of fluid Past Medical History: Diagnosis Date ??? Anxiety 12/27/2014 ??? Chronic pain syndrome 05/31/2016 ??? Combined drug dependence, continuous abuse (HCC) 02/25/2020 As of 04.23.19 [facility] Per 02.25.20 NOB @[facility]: ??? Drug use: Yes Types: Methamphetamines, Heroin, Cocaine Comment: Last use yesterday 01/30/2020 heroin, methamphetamin (Tuesday01/29/2020) 02.24. RUDS - Buprenorphine, U+ only #2 Dependence Polysubstance Continuous (HCC) Thepatient is followed by her addiction physician, Dr. Anthony Rebolledo ([phone]) and has an ??? Disorder of arteries and arterioles (HCC) 02/01/201904.23. entry Patient also was admitted to [facility] with strokelike symptoms February 01 and . 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 Has been maintained on aspirin. No further symptoms. 02.01.19 [facility] Result Impression 1. No acute intracranial findings. 2. 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 Other Result Information Result ??? History of hepatitis C virus infection 06/24/2017 ??? Migraine headache 05/18/2017 ??? Mild intermittent asthma 07/01/2014 ??? Nicotine dependence 04/02/2011 ??? Peripheral vascular disease (HCC) 04/26/2019 ??? Unsure of last menstrual period as reason for ultrasound scan 03/21/2020 Dating by 02.25.20 8+2 -> EDC 10.04.20 @ [facility] Past Surgical History: Procedure Laterality Date ??? TONSILLECTOMY ??? WRIST SURGERY Right Cyst removal OB History Para Term AB Living 3 1 1 1 1 SAB TAB Ectopic Multiple Live Births 1 1 # Outcome Date GA Lbr Tavon/2nd Weight Sex Delivery Anes PTL Lv 3 Current 2 SAB 11/2018 1 Term 09/04/13 39w4d 3118 g (110 oz) M Vag-Spont N GAY Comments: NOT parenting. With her grandparent. Social History Tobacco Use ??? Smoking status: Former Smoker Packs/day: 1.00 Types: Cigarettes Quit date: 03/2020 Years since quittin.1 ??? Smokeless tobacco: Never Used Substance Use Topics ??? Alcohol use: Not Currently Comment: Sober since 2014 ??? Drug use: Not Currently Frequency: 7.0 times per week Types: Amphetamines, Heroin, Marijuana, Cocaine, MDMA (ecstacy) Comment: Last used Heroin 03/11/20 (Heroin is drug of choice per Anjali) Genetic and Family History Genetic screen for aneuploidy: declined No history of recurrent stillbirth, structural anomaly, [...] shortness of breath 18 g 1 ??? buprenorphine (SUBUTEX) 2 MG Take one tablet in the morning (with 8 mg tablet) and one tablet inthe evening (with 8 mg tablet). Total daily dose 20 mg. 30 tablet 0 ??? buprenorphine (SUBUTEX) 8 MG Take 1 tablet in the am (with 2 mg tablet) and 1 tablet in the pm (with 2 mg tablet). Total daily dose 20 mg. 30 tablet 0 ??? doxylamine (UNISON) 25 MG tablet Take 25 mg by mouth Take 1 tablet at bedtime as needed for nausea. ??? nicotine polacrilex (Nicorette) 4 MG gum Chew 1 each (4 mg total) if needed for smoking cessation 100 each 0 ??? Prenat w/o Q-SmFrj-Xdms-FA-DHA (WestGel DHA) 31-0.6-0.4-200 MG capsule Take 1 capsule by mouth 1(one) time each day ??? MV-Min-Fe Fum-FA-DHA ( 1) 30-0.975-200 MG capsule Take 1 tablet by mouth 1 (one) time each day 90 capsule 3 ??? Vit-Fe Fumarate-FA ( MULTIVITAMINS PO) Take by mouth ??? pyridoxine (VITAMIN B-6) 25 MG tablet Take 1 tablet (25 mg total) by mouth every 8 (eight) hours90 tablet 1 No current facility-administered medications on file prior to visit. Allergies Sulfa antibiotics Blood pressure 134/68, weight 82.9 kg (182 lb 12.8 oz). Ultrasound: Single live intrauterine . 292 g. 37th percentile. Posterior placenta. Normal anatomy. Low lying plac Assessment: Intrauterine at 19w4d Problem List Items Addressed This Visit Nervous Migraine headache Combined drug dependence, continuous abuse (HCC) - Primary Relevant Orders Rapid drug screen, urine (Completed) OB US, detailed anatomy RESOLVED: Opioid dependence in remission ([facility]) Respiratory Mild intermittent asthma Digestive History of hepatitis C virus infection Relevant Orders Miscellaneous [facility] Irritable bowel syndrome with constipation Other Anxiety Supervision of high risk , antepartum Relevant Medications Prenat w/o I-IzGja-Rtir-FA-DHA (WestGel DHA) 31-0.6-0.4-200 MG capsule doxylamine (UNISON) 25 MG tablet Opioid use disorder, moderate, in early remission, on maintenance therapy (HCC) Relevant Medications doxylamine (UNISON) 25 MG tablet Other Visit Diagnoses FH: congenital heart problem Relevant Orders Ambulatory External Referral Plan I reviewed with the patient and her partner that today's ultrasound shows normal anatomy and appropriate growth that matches her stated HAZEL. We reviewed the difference between a comprehensive anatomic survey and a routine anatomic survey, discussed all the structures we examined today and provided herwith pictures. We saw on ultrasound today a low-lying placenta, posterior. Low-lying placenta is defined as a placenta whose edge comes within 2 cm of the internal os but does not cover the os as with a previa. Posterior low-lying placentae are not at increased risk for accreta. Generally low-lying placenta found inthe second trimester will resolve by term in over 90% of cases. Typically, we recommend a repeat ultrasound at 30-32 weeks to confirm resolution of low-lying placenta. If the placenta is between 10 and20 mm from the internal os at the time of delivery, a trial of vaginal delivery can be offered although the risk of bleeding in labor is increased at 3%, however, 70% we will still deliver vaginally. If the edge of the placenta is less than 10 mm, the risk of bleeding in labor is 30% and 75% will require section so we recommend planned section. Medication assisted treatment of an opioid substance [...] drug out of the OB clinic at [facility], and she will need to continue getting it from her mental health provider. It is not associated with any structural defects. Use is not an indication for antepartum testing on its own. If the patient has a relapse then third trimester antepartum testing would be indicated. I recommend a growth ultrasound between 30 and 32 weeks gestation. Recommend anesthesia consultation in the third trimester as pain control can be an issue. We did discuss abstinence syndrome. This occurs more often with opioid-containing medications. It is hard to predict how many days to weeks this might require hospitalization. We reviewed the limitations of [place] at [facility] and if the baby requires ongoing treatment it may require transfer to [facility]. She will have drug testing at delivery as well as meconium screening for the baby. is a high risk [...] a previously affected child is approximately 2-3%. She was offered a echocardiogram referral to [facility] and accepted. Heart views on today's exam look entirely within normal limits. She has likely had infection with hepatitis C in the past and has cleared the virus. Her antibody test will always be positive. We should check for PCR evidence of viral load. I ordered this today. Tobacco abuse is associated with delivery and growth problems in the fetus. Growth problems are particularly significant when patients are smoking more than 7 cigarettes a day. We discussed decreasing her tobacco use and ideally cessation. She is not interested in further information on tobacco cessation at this time. She has a history of headaches prior to . There is the possibility of an increase in frequency and severity with the changes in hormones of , but most women actually experience eitherstability or improvement with . Recurrence during the period is common, and is less frequent in women who breastfeed. Women with menstrual migraine are most likely to experience headaches. There is no effect on outcomes. There are limited treatment options in but briefly we reviewed pharmacologic strategies of Tylenol, caffeine and hydration. She should contact us if they are interfering with her daily activities. She reports they are actually improved.. Asthma occurs in 8% of pregnancies and is associated with increased risk for preeclampsia, , growth restriction, miscarriage and stillbirth depending on severity, although the risks of these are much less with mild, intermittent disease. The management is unchanged in with spirometry or peak flow to guide the action plan. If she requires a rescue inhaler more than 3-4 times a week, I would suggest adding or increasing inhaled steroid use. I recommend optimizing environmental factors like controlling rhinitis/sinusitis and GERD, avoiding smoking and other irritants. We consider antepartum testing starting at 32 weeks only if the disease is poorly controlled. If the patient istaking daily systemic steroids for a prolonged period of time ( > 20 mgs daily for > 3 weeks) consider stress dose steroids at delivery (hydrocortisone 100 mg q 8h until 24 hours post delivery). During asthma exacerbations, the goal is to maintain saturations > 95% and pO2 > 70. She has laxative dependent constipation which is really unchanged in . We requested renewal of her medications of Unisom and vitamin to [facility] pharmacy. In summary I recommend the following. --We will refer her for echo for indication of family history of congenital heart defect --She did a drug urine screen today and we will do this frequently throughout care --Patient is aware that all of her maintenance therapy will be prescribed through clinic other than [facility] OB clinic --Recommend anesthesia consult in third trimester as pain management can be difficult --Patient is aware that risk of abstinence is present and may require transfer of care to [facility] --We will check hepatitis C viral load which is likely negative --We will follow symptoms of constipation, asthma --We will rescan the patient at 28 to 32 weeks for resolution of the low-lying placenta and to follow growth --New prescription for Unisom and vitamin was sent to pharmacy of choice This visit lasted 80 minutes which was spent preparing to see the patient by reviewing clinical notes and test results, reviewing ultrasound images, reviewing past medical history obtained by ancillarystaff, counseling extensively about the issues addressed above and documentation of the visit. This consult required 45 minutes of isjr-kz-rbgb counseling about the above. HEALTH TRAVEL OT documented in this encounter Plan of Treatment Scheduled Referrals Name Type Priority Associated Order Schedule Diagnoses Ambulatory External Outpatient Referral Routine FH: congenital Ordered: Referral heart problem 05/14/2020 documented as of this encounter Goals Goal Patient Goal Associated Recent Patient-Stated? Author Type Problems Progress secure housing General Yes Melissa Coronado, DNP, [employer] POLISHER, SUPERVISOR ASSEMBLY Note: Formatting of this note might be d ifferent from the original. - has applied for several housing lists; waiting to hear back, wants to be near family documented as of this encounter Procedures Procedure [...] for growth TECHNIQUE: IMAGING: Transabdominal QUALITY: Satisfactory COLOR PRINTER OPERATOR: Sandy Procedure Note Molly Shea MD - 08/11/2020Formattin g of this note might be different from the original. INDICATION: drug dependence EXAM DESCRIPTION: Follow-up ultrasound for growth TECHNIQUE: IMAGING: Transabdominal QUALITY: Satisfactory COLOR PRINTER OPERATOR: Sandy IMPRESSION: Single viable intrauterine at 30 [...] Molly Shea MD IMG OB US PROCEDURES (ABNORMAL) Rapid drug screen, urine (05/14/2020 10:58 AM HOME HEALTH TRAVEL OT) athologist Signature Rapid Urine ----- 05/14/2020 [facility] Drug Screen 10:58 AM HOME HEALTH TRAVEL OT CENTER LABORATORY Comment: This is a screening test. ??Positive res ults should be considered presumptive and are sent to [facility]tox for confirmation. This test is not for legal purposes - on medical. Tetrahydrocannabinol NOT DETECTED Not Detected 05/14/2020 12:11 [facility] HE[facility] TRAVEL OT [facility] Phencyclidine, Mec NOT DETECTED Not Detected 05/14/2020 12:1 1 [facility] Cocaine NOT DETECTED Not Detected 05/14/2020 12:11 [facility] Methamphetamine NOT DETECTED Not Detected 05/14/2020 12:11 [facility] HEALTH TRAVEL OT [facility] Opiates NOT DETECTED Not Detected 05/14/2020 12:11 [facility] Amphetamines NOT DETECTED Not Detected 05/14/2020 12:11 [facility] HEALTH TRAVEL OT [facility] Benzodiazepines NOT DETECTED Not Detected 05/14/2020 12:11 [facility] HEALTH TRAVEL OT [facility] TCA, Urine NOT DETECTED Not Detected 05/14/2020 12:11 [facility] HOME HEALTH TRAVEL OT [facility] Methadone NOT DETECTED Not Detected 05/14/2020 12:11 [facility] Barbiturates NOT DETECTED Not Detected 05/14/2020 12:11 [facility] Oxycodone NOT DETECTED Not Detected 05/14/2020 12:11 [facility] Propoxyphene NOT DETECTED Not Detected 05/14/2020 12:11 [facility] Buprenorphine DETECTED (A) Not Detected 05/14/2020 12:11 [facility] HOME HEALTH TRAVEL OT [facility] Comment: Sent to [employer] for GC/MS confirmation. Detectable Levels ----- 05/14/2020 10:58 AM CS T [facility] Comment: Amphetamines ?500 ng/ mL [...] Location / / Volume Laterality Urine (Urine, 05/14/2020 10:58 05/14/2020 Clean Catch) AM HOME HEALTH TRAVEL OT 11:30 AM HOME HEALTH TRAVEL OT Molly Shea MD LAB URINE ORDERABLES Performing Organization Address City/State/ZIP Code Phon e Number [facility] [address] [place] [address] documented in this encounter Visit Diagnoses Diagnosis Combined drug dependence, continuous abu se (HCC) - Primary History of hepatitis C virus infection FH: congenital heart problem Family history of congenital anomalies Supervision of high risk , ante Opioid dependence in remission (HCC) Opioid type dependence, in remission Opioid use disorder, moderate, in early remission, on maintenance therapy (HCC) Anxiety Anxiety state, unspecified Irritable bowel syndrome with constipati on Irritable bowel syndrome Mild intermittent asthma without complic ation Migraine without aura and without status migrainosus, not intractable documented in this encounter Care Teams Pediatric Social Worker Relationship Specialty Start Date End Date None, Pcp PCP - General Criminal Investigative Agent 02/06/19 [address] [place] [address] documented as of this encounter
--- OUTSIDE RECORDS SUMMARY | 2022-01-14 01:46 | XMS_ITS | Encounter Summary ---
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 How often do you attend yazidism or temple Not asked 03/21/2020 services? Do you belong to any clubs or organizations such as Argelia schilling 03/21/2020 yazidism groups, unions, fraternal or athletic groups, or [...] with No / Unsure 04/01/2020 8:38 PM HELICOPTER OFFICER someone who was confirmed or suspected to have Coronavirus / COVID-19? documented as of this encounter Miscellaneous Notes Telephone Encounter - Melissa Coronado DNP, APRN, MIK - 04/24/2020 4:02 PM HELICOPTER OFFICER Okay, will do. Please help me remember Grey! COPTER OFFICER Telephone Encounter - RUSSELL Whitehead, [place] - 04/24/2020 1:50 PM CST Received referral re: hx of drug use and currently . [facility] [place] meet with pt after [facility]01[facility]2020 to discuss SS referral. COPTER OFFICER documented in this encounter Plan of Treatment Not on filedocumented as of this encounter Goals Goal Patient Goal Associated Recent Patient-Stated? Author Type Problems Progress secure housing General Yes Melissa Coronado DNP, SUEDE BRUSHER, TIN RECOVERY WORKER Note: Formatting of this note might be d ifferent from the original. - has applied for several housing lists; waiting to hear back, wants to be near family Quit using tobacco (cigarettes, Tobacco Use No Melissa Coronado DNP, NICHOLAS, smokeless, etc) TIN RECOVERY WORKER Note: Formatting of this note might be d ifferent from the original. Will use nicorette gum in case of breakt hrough craving. Will find some candy or suckers to use d uring group to occupy her hands/oral fixation documented as of this encounter Visit Diagnoses Not on filedocumented in this encounter Care Teams Equity Structurer Relationship Specialty Start Date End Date None, Pcp PCP - General Sweeping Compound Blender 02/06/19 [address] [place] [phone] documented as of this encounter
--- OUTSIDE RECORDS SUMMARY | 2022-01-14 01:46 | XMS_ITS | Encounter Summary ---
:1990 Author Organization [facility] Address [address] [place] [address] Care Team Providers Name Role Phone None, Pcp Primary Care Provider Unavailable Encounter Details Date Type Department Care Team Description 05/01/2020 Lab SE Lab Opioid use disorder, moderat e, [address] in early remission, [place] [address] maintenance therapy ([facility]) [phone] Social History Tobacco Use Types Packs/Day Years [...] How often do you attend buddhism or anglican Not asked 03/21/2020 services? Do you belong to any clubs or organizations such as Not askbreanne schilling 03/21/2020 buddhism groups, unions, fraternal or [...] with No / Unsure 04/01/2020 8:38 PM DRILL SETUP OPERATOR someone who was confirmed or suspected to have Coronavirus / COVID-19? documented as of this encounter Progress Notes Melissa Coronado DNP, NICHOLAS, MIK - 05/01/2020 1:00 PM CST Results as expected, no illicit use L SETUP OPERATOR documented in this encounter Plan of Treatment Not on filedocumented as of this encounter Goals Goal Patient Goal Associated Recent Patient-Stated? Author Type Problems Progress secure housing General Yes Melissa Coronado, JUAN DIEGO, LOAN MANAGER, CUSTOMS INSPECTOR Note: Formatting of this note might be d ifferent from the original. - has applied for several housing lists; waiting to hear back, wants to be near family documented as of this encounter Procedures Procedure Name Priority Date/Time Associated Diagnosis Comme nts CONTROLLED Routine 05/01/2020 3:33 PM Opioid use disorder, R esults for this SUBSTANCES DRILL SETUP OPERATOR moderate, in early procedure are in MONITORING PANEL, remission, on the [facility] URINE maintenance therapy section. (HCC) documented in this encounter Results (ABNORMAL) Controlled Substance Monitoring Panel, Urine (05/01/2020 3:33 PM DRILL SETUP OPERATOR) Component Value Ref Test Analysis Performed At [facility] Range Method Time Signature Amphetamines Negative Cutoff: 05/03/2020 [facility] 500 10:22 AM LABORATORIES ng/mL DRILL SETUP OPERATOR Barbiturates Negative Cutoff: 05/03/2020 [facility] 200 10:22 AM LABORATORIES ng/mL DRILL SETUP OPERATOR Cocaine Negative Cutoff: 05/03/2020 [facility] 150 10:22 AM LABORATORIES ng/mL DRILL SETUP OPERATOR Phencyclidine, Mec Negative Cutoff: 05/03/2020 [facility] 25 ng/mL 10:22 AM LABORATORIES DRILL SETUP OPERATOR Tetrahydrocannabinol Negative Cutoff: 05/03/2020 [facility] 50 ng/mL 10:22 AM LABORATORIES DRILL SETUP OPERATOR Comment: ADDITIONAL INFORMATIO N This report is intended for use in clini wilfred monitoring or management of patients. ??It is not inte nded for use in employment-related testing. Codeine Not Detected Cutoff: 25 ng/mL 05/03/2020 10:22 AM [facility] DRILL SETUP OPERATOR LABORATORIES Comment: Tylenol 3 Devuird-6-febp-glucuronide Not Detected Cutoff: 100 05/03/19 21 [facility] ng/mL 10:22 AM DRILL SETUP OPERATOR LABORATORIES Comment: Metabolite of codeine Morphine Urine Not Detected Cutoff: 25 05/03/2020 10:22 [facility] ng/mL AM DRILL SETUP OPERATOR LABORATORIES Comment: Emilia Perry, MS Contin; Also a minor metabolite (10%) of codeine and can be seen in low concentra tions (<2,000 ng/mL) with poppy seed ingestion. Bhidqssu-1-iufc-glucuronide Not Detected Cutoff: 100 021 [facility] ng/mL 10:22 AM DRILL SETUP OPERATOR LABORATORIES Comment: Metabolite of morphine 6-monoacetylmorphine Not Detected Cutoff: 25 05/03/2020 10:2 2 [facility] ng/mL AM DRILL SETUP OPERATOR LABORATORIES Comment: Metabolite of heroin Hydrocodone Not Detected Cutoff: 25 ng/mL 05/03/2020 10:22 A [facility] Comment: Lortab, Garibaldi, Vicodin; Also a very phoenix r metabolite of codeine and impurity (<1%) of oxycodone. Norhydrocodone Not Detected Cutoff: 25 05/03/2020 10:22 [facility] ng/mL AM DRILL SETUP OPERATOR LABORATORIES Comment: Metabolite of hydrocodone Dihydrocodeine Not Detected Cutoff: 25 05/03/2020 10:22 [facility] ng/mL AM DRILL SETUP OPERATOR [facility]ATORIES Comment: Metabolite of hydrocodone Hydromorphone Not Detected Cutoff: 25 ng/mL 05/03/2020 10:22 [facility] DRILL SETUP OPERATOR LABORATORIES Comment: Dilaudid, Exalgo; Also a metabolite of h ydrocodone and a minor (<5%) metabolite of morphine. Tbluwgxslntdx-2-vbpj-glucuronide Not Cutoff: 021 [facility] Detected 100 ng/mL 10:22 AM DRILL SETUP OPERATOR LABORATORIES Comment: Metabolite of hydromorphone Oxycodone Not Detected Cutoff: 25 ng/mL 05/03/2020 10:22 AM [facility] DRILL SETUP OPERATOR LABORATORIES Comment: Endocet, Percocet, Oxycontin Noroxycodone Not Detected Cutoff: 25 ng/mL 05/03/2020 10:22 AM [facility] DRILL SETUP OPERATOR LABORATORIES Comment: Metabolite of oxycodone Oxymorphone Not Detected Cutoff: 25 ng/mL 05/03/2020 10:22 A M [facility] DRILL SETUP OPERATOR LABORATORIES Comment: Numorphan, Opana; Also a metabolite of o xycodone. Tqofuaxvmxs-7-jsla-glucuronide Not Detected Cutoff: 2020 [facility] 100 ng/mL 10:22 AM DRILL SETUP OPERATOR LABORATORIES Comment: Metabolite of oxymorphone and/or naloxon e (nornaloxone) Noroxymorphone Not Detected Cutoff: 25 05/03/2020 10:22 [facility] ng/mL AM DRILL SETUP OPERATOR LABORATORIES Comment: Metabolite of oxymorphone and/or naloxon e (nornaloxone) Fentanyl Not Detected Cutoff: 2 ng/mL 05/03/2020 10:22 AM [facility] DRILL SETUP OPERATOR LABORATORIES Comment: Actiq, Duragesic, Fentora Norfentanyl Not Detected Cutoff: 2 ng/mL 05/03/2020 10:22 AM [facility] DRILL SETUP OPERATOR LABORATORIES Comment: Metabolite of fentanyl Meperidine Not Detected Cutoff: 25 ng/mL 05/03/2020 10:22 AM [facility] DRILL SETUP OPERATOR LABORATORIES Comment: Demerol Normeperidine Not Detected Cutoff: 25 ng/mL 05/03/2020 10:22 [facility] DRILL SETUP OPERATOR LABORATORIES Comment: Metabolite of meperidine Naloxone Not Detected Cutoff: 25 ng/mL 05/03/2020 10:22 AM [facility] DRILL SETUP OPERATOR LABORATORIES Comment: Narcan Citqzmkv-9-opua-glucuronide Not Detected Cutoff: 100 021 [facility] ng/mL 10:22 AM DRILL SETUP OPERATOR LABORATORIES Comment: Metabolite of naloxone Methadone Not Detected Cutoff: 25 ng/mL 05/03/2020 10:22 AM [facility] DRILL SETUP OPERATOR LABORATORIES Comment: Dolophine EDDP Not Detected Cutoff: 25 ng/mL 05/03/2020 10:22 AM [facility] DRILL SETUP OPERATOR LABORATORIES Comment: Metabolite of methadone Propoxyphene Not Detected Cutoff: 25 ng/mL 05/03/2020 10:22 AM [facility] Comment: Darvon, Darvocet Norpropoxyphene Not Detected Cutoff: 25 05/03/2020 10:22 [facility] ng/mL AM DRILL SETUP OPERATOR LABORATORIES Comment: Metabolite of propoxyphene Tramadol Not Detected Cutoff: 25 ng/mL 05/03/2020 10:22 AM [facility] DRILL SETUP OPERATOR LABORATORIES Comment: Tradol, Ultram, Ultracet O-desmethyltramadol Not Detected Cutoff: 25 05/03/2020 10:22 [facility] ng/mL AM DRILL SETUP OPERATOR LABORATORIES Comment: Metabolite of tramadol Tapentadol Not Detected Cutoff: 25 ng/mL 05/03/2020 10:22 AM [facility] Comment: Nucynta N-desmethyltapentadol Not Detected Cutoff: 50 05/03/2020 10: 22 [facility] ng/mL AM DRILL SETUP OPERATOR LABORATORIES Comment: Metabolite of tapentadol Cyckmtytda-mgon-htrlnyeyxmu Not Detected Cutoff: 100 021 [facility] ng/mL 10:22 AM DRILL SETUP OPERATOR LABORATORIES Comment: Metabolite of tapentadol Buprenorphine Present (A) Cutoff: 5 ng/mL 05/03/2020 10:22 A [facility] Comment: Buprenex, Suboxone Norbuprenorphine Present (A) Cutoff: 5 ng/mL 05/03/2020 10:2 2 [facility] Comment: Metabolite of buprenorphine Norbuprenorphine Present (A) Cutoff: 20 05/03/2020 10:22 [facility] glucuronide ng/mL AM DRILL SETUP OPERATOR LABORATORIES Comment: Metabolite of buprenorphine Opioid Interpretation - 05/03/2020 10:22 A M [facility] Comment: Test detected the presence of buprenorph ine and its metabolites (norbuprenorphine, norbupren orphine glucuronide). Suspect use of buprenorphi ne within the past three days. ADDITIONAL INFORMATIO N This test was developed and its performa nce characteristics determined by [facility] in a manner co nsistent with CLIA requirements. This test has not been madeleine ared or approved by the U.S. Food and Drug Administration. Creatinine, Urine 107.9 mg/dL 05/03/2020 10:22 [facility] AM DRILL SETUP OPERATOR LABORATORIES Specific Warners, 1.018 05/03/2020 10:22 [facility] Urine AM DRILL SETUP OPERATOR LABORATORIES pH, Urine 5.7 05/03/2020 10:22 [facility] DRILL SETUP OPERATOR LABORATORIES Oxidants Negative Cutoff: 200 05/03/2020 10:22 [facility] mg/L AM DRILL SETUP OPERATOR LAB[facility]ATORIES Comment Normal 05/03/2020 10:22 [facility] DRILL SETUP OPERATOR LABORATORIES Alprazolam Not Detected Cutoff: 10 05/03/2020 10:22 [facility] ng/mL AM DRILL SETUP OPERATOR LABORATORIES Comment: Xanax Alpha-Hydroxyalprazolam UR Not Detected Cutoff: 10 [facility] ng/mL 10:22 AM DRILL SETUP OPERATOR LAB[facility]ATORIES Comment: Metabolite of Alprazolam Alpha-Hydroxyalprazolam Not Detected Cutoff: 50 05/03/2020 [facility] Glucuronide ng/mL 10:22 AM DRILL SETUP OPERATOR LABORATORIES Comment: Metabolite of Alprazolam Chlordiazepoxide Not Detected Cutoff: 10 05/03/2020 10:22 [facility] ng/mL AM DRILL SETUP OPERATOR [facility]IES Comment: Librium Clobazam Not Detected Cutoff: 10 ng/mL 05/03/2020 10:22 AM [facility] DRILL SETUP OPERATOR LABORATORIES Comment: Frisium, Onfi N-Desmethylclobazam Not Detected Cutoff: 200 05/03/2020 10:2 2 [facility] ng/mL AM DRILL SETUP OPERATOR LABORATORIES Comment: Metabolite of Clobazam Clonazepam Lvl Not Detected Cutoff: 10 05/03/2020 10:22 [facility] ng/mL AM DRILL SETUP OPERATOR LAB[facility] Comment: Klonopin, Rivotril 7-Aminoclonazepam Not Detected Cutoff: 10 05/03/2020 10:22 [facility] ng/mL AM DRILL SETUP OPERATOR LAB[facility]IES Comment: Metabolite of Clonazepam Diazepam UR Not Detected Cutoff: 10 05/03/2020 10:22 [facility] Quant ng/mL AM DRILL SETUP OPERATOR LABORATORIES Comment: Valium Nordiazepam Not Detected Cutoff: 10 ng/mL 05/03/2020 10:22 A M [facility] DRILL SETUP OPERATOR LABORATORIES Comment: Metabolite of Chlordiazepoxide, Diazepam , or Prazepam. Flunitrazepam Not Detected Cutoff: 10 ng/mL 05/03/2020 10:22 [facility] AM DRILL SETUP OPERATOR LABORATORIES Comment: Rohypnol 7-Aminoflunitrazepam Not Detected Cutoff: 10 05/03/2020 10:2 2 [facility] ng/mL AM DRILL SETUP OPERATOR [facility] Comment: Metabolite of Flunitrazepam Flurazepam Not Detected Cutoff: 10 ng/mL 05/03/2020 10:22 AM [facility] DRILL SETUP OPERATOR LABORATORIES Comment: Dalmane 2- hydroxy ethyl Not Detected Cutoff: 10 05/03/2020 10:22 [facility] flurazepam ng/mL AM DRILL SETUP OPERATOR LABORATORIES Comment: Metabolite of Flurazepam Lorazepam Not Detected Cutoff: 10 ng/mL 05/03/2020 10:22 AM [facility] DRILL SETUP OPERATOR LABORATORIES Comment: Ativan Lorazepam Not Detected Cutoff: 50 05/03/2020 10:22 [facility] Glucuronide ng/mL AM DRILL SETUP OPERATOR LABORATORIES Comment: Metabolite of Lorazepam Midazolam Not Detected Cutoff: 10 ng/mL 05/03/2020 10:22 AM [facility] DRILL SETUP OPERATOR LABORATORIES Comment: Versed Alpha-Hydroxy Not Detected Cutoff: 10 05/03/2020 10:22 [facility] Midazolam ng/mL AM DRILL SETUP OPERATOR LABORATORIES Comment: Metabolite of Midazolam Oxazepam Not Detected Cutoff: 10 ng/mL 05/03/2020 10:22 AM [facility] DRILL SETUP OPERATOR LABORATORIES Comment: Serax; Also a metabolite of Chlordiazepo xide, Diazepam, or Temazepam. Oxazepam Not Detected Cutoff: 50 05/03/2020 10:22 [facility] Glucuronide ng/mL AM DRILL SETUP OPERATOR LABORATORIES Comment: Metabolite of Oxazepam Prazepam, urine Not Detected Cutoff: 10 05/03/2020 10:22 [facility] ng/mL AM DRILL SETUP OPERATOR LABORATORIES Comment: Centrax Temazepam Not Detected Cutoff: 10 ng/mL 05/03/2020 10:22 AM [facility] DRILL SETUP OPERATOR LABORATORIES Comment: Restoril; Also a metabolite of Diazepam. Temazepam Not Detected Cutoff: 50 05/03/2020 10:22 [facility] Glucuronide ng/mL AM DRILL SETUP OPERATOR LAB[facility]IES Comment: Metabolite of Temazepam Triazolam Not Detected Cutoff: 10 ng/mL 05/03/2020 10:22 AM [facility] DRILL SETUP OPERATOR LABORATORIES Comment: Halcion Alpha-Hydroxy Not Detected Cutoff: 10 05/03/2020 10:22 [facility] Triazolam ng/mL AM DRILL SETUP OPERATOR LABORATORIES Comment: Metabolite of Triazolam Zolpidem Not Detected Cutoff: 10 ng/mL 05/03/2020 10:22 AM [facility] Comment: Ambien Zolpidem Not Detected Cutoff: 10 05/03/2020 [facility] Ainpha-7-Kfmizumcmu acid ng/mL 10:22 AM DRILL SETUP OPERATOR [facility] Comment: Metabolite of Zolpidem Benzodiazepine, Interp - 05/03/2020 10:22 AM DRILL SETUP OPERATOR [facility] Comment: No benzodiazepines were detected. The ab sence of expected drug(s) and/or drug metabolite(s) may in dicate non-compliance, altered pharmacokinetics , inappropriate timing of specimen collection relative t o drug administration, diluted/adulterated urin e, or limitations of testing. ADDITIONAL INFORMATIO N This test was developed and its performa nce characteristics determined by [facility] in a manner co nsistent with CLIA requirements. This test has not been madeleine ared or approved by the U.S. Food and Drug Administration. Test Performed by: [facility] [address] [place] [address] Helicopter Pilot Instructor: Benigno Selby M.D. Ph. D.; CLIA# [id number] List patient's Not provided 05/03/2020 10:22 AM [facility]ENC[facility] Comment: ADDITIONAL INFORMATIO N Accuracy and completeness of declared me dications on reports solely dependent on information submitted by client. Specimen Anatomical Collection Method Collection Time Receive d Time (Source) Location / / Volume Laterality Urine 05/01/2020 3:33 PM 3:34 DRILL SETUP OPERATOR PM DRILL SETUP OPERATOR Melissa Coronado DNP, LOAN MANAGER, CUSTOMS INSPECTOR LAB URINE ORDERABLES Performing Organization Address City/State/ZIP Code Phon e Number [facility] see result attachment for specific address documented in this encounter Visit Diagnoses Diagnosis Opioid use disorder, moderate, in early remission, on maintenance therapy (HCC) documented in this encounter Care Teams Recessing Machine Operator Relationship Specialty Start Date End Date None, Pcp PCP - General Music Publisher 02/06/19 [address] [place] [phone] documented as of this encounter
--- OUTSIDE RECORDS SUMMARY | 2022-01-14 01:46 | XMS_ITS | Encounter Summary ---
:1990 Author Organization [facility] Address [address] [place] [address] Care Team Providers Name Role Phone None, Pcp Primary Care Provider Unavailable Encounter Details Date Type Department Care Team Description 04/24/2020 Lab SE Lab Opioid use disorder, moderat e, [address] in early remission, [place] [address] maintenance therapy ([facility]) [phone] Social History Tobacco Use Types Packs/Day Years [...] often do you attend oriental orthodox or mu-ism Not asked 03/21/2020 services? Do you belong to any clubs or organizations such as Not askbreanne schilling 03/21/2020 oriental orthodox groups, unions, fraternal [...] with No / Unsure 04/01/2020 8:38 PM ORTHOPEDIC TECHNICIAN someone who was confirmed or suspected to have Coronavirus / COVID-19? documented as of this encounter Progress Notes Melissa Coronado DNP, STEEL SAMPLER, GRANTS DIRECTOR - 04/24/2020 10:00 AM CST Results indicate no illicit substance use, compliant with Suboxone therapy OPEDIC TECHNICIAN documented in this encounter Plan of Treatment Not on filedocumented as of this encounter Goals Goal Patient Goal Associated Recent Patient-Stated? Author Type Problems Progress secure housing General Yes Melissa Coronado, JUAN DIEGO, STEEL SAMPLER, GRANTS DIRECTOR Note: Formatting of this note might be d ifferent from the original. - has applied for several housing lists; waiting to hear back, wants to be near family documented as of this encounter Procedures Procedure Name Priority Date/Time Associated Diagnosis Comme nts CONTROLLED Routine 04/24/2020 10:20 Opioid use disorder, Res ults for this SUBSTANCES AM ORTHOPEDIC TECHNICIAN moderate, in early procedure are in MONITORING PANEL, remission, on the [facility] URINE maintenance therapy section. (HCC) documented in this encounter Results (ABNORMAL) Controlled Substance Monitoring Panel, Urine (04/24/2020 10:20 AM ORTHOPEDIC TECHNICIAN) Component Value Ref Test Analysis Performed At [facility] Range Method Time Signature Amphetamines Negative Cutoff: 04/27/2020 [facility] 500 1:39 PM ORTHOPEDIC TECHNICIAN LAB[facility]IES ng/mL Barbiturates Negative Cutoff: 04/27/2020 [facility] 200 1:39 PM ORTHOPEDIC TECHNICIAN LABORATORIES ng/mL Cocaine Negative Cutoff: 04/27/2020 [facility] 150 1:39 PM ORTHOPEDIC TECHNICIAN [facility]IES ng/mL Phencyclidine, Mec Negative Cutoff: 04/27/2020 [facility] 25 ng/mL 1:39 PM ORTHOPEDIC TECHNICIAN LAB[facility]IES Tetrahydrocannabinol Negative Cutoff: 04/27/2020 [facility] 50 ng/mL 1:39 PM ORTHOPEDIC TECHNICIAN [facility] Comment: ADDITIONAL INFORMATIO N This report is intended for use in clini wilfred monitoring or management of patients. ??It is not inte nded for use in employment-related testing. Codeine Not Detected Cutoff: 25 ng/mL 04/27/2020 1:39 PM M [facility] ORTHOPEDIC TECHNICIAN [facility] Comment: Tylenol 3 Lcxxvla-9-hhay-glucuronide Not Detected Cutoff: 100 04/27/19 21 [facility] ng/mL 1:39 PM ORTHOPEDIC TECHNICIAN [facility] Comment: Metabolite of codeine Morphine Urine Not Detected Cutoff: 25 04/27/2020 1:39 PM [facility] ng/mL ORTHOPEDIC TECHNICIAN [facility] Comment: Emilia Perry, MS Contin; Also a minor metabolite (10%) of codeine and can be seen in low concentra tions (<2,000 ng/mL) with poppy seed ingestion. Enyvzytx-5-qiok-glucuronide Not Detected Cutoff: 100 021 [facility] ng/mL 1:39 PM ORTHOPEDIC TECHNICIAN [facility] Comment: Metabolite of morphine 6-monoacetylmorphine Not Detected Cutoff: 25 04/27/2020 1:39 [facility] ng/mL PM ORTHOPEDIC TECHNICIAN [facility] Comment: Metabolite of heroin Hydrocodone Not Detected Cutoff: 25 ng/mL 04/27/2020 1:39 PM [facility] ORTHOPEDIC TECHNICIAN LABORATORIES Comment: Lortab, [place], Vicodin; Also a very [place] r metabolite of codeine and impurity (<1%) of oxycodone. Norhydrocodone Not Detected Cutoff: 04/27/2020 1:39 PM [facility] ng/mL ORTHOPEDIC TECHNICIAN [facility] Comment: Metabolite of hydrocodone Dihydrocodeine Not Detected Cutoff: 04/27/2020 1:39 PM [facility] ng/mL ORTHOPEDIC TECHNICIAN [facility] Comment: Metabolite of hydrocodone Hydromorphone Not Detected Cutoff: 25 ng/mL 04/27/2020 1:39 PM [facility] ORTHOPEDIC TECHNICIAN [facility] Comment: Dilaudid, Exalgo; Also a metabolite of h ydrocodone and a minor (<5%) metabolite of morphine. Cleffjftjyylf-7-hmje-glucuronide Not Cutoff: 021 [facility] Detected 100 ng/mL 1:39 PM ORTHOPEDIC TECHNICIAN [facility] Comment: Metabolite of hydromorphone Oxycodone Not Detected Cutoff: 25 ng/mL 04/27/2020 1:39 PM [facility] ORTHOPEDIC TECHNICIAN LABORATOR[facility] Comment: Endocet, Percocet, Oxycontin Noroxycodone Not Detected Cutoff: 25 ng/mL 04/27/2020 1:39 P [facility] ORTHOPEDIC TECHNICIAN [facility]ATOR[facility] Comment: Metabolite of oxycodone Oxymorphone Not Detected Cutoff: 25 ng/mL 04/27/2020 1:39 PM [facility] ORTHOPEDIC TECHNICIAN [facility] Comment: Numorphan, Opana; Also a metabolite of o xycodone. Mzphcfpwded-2-guhj-glucuronide Not Detected Cutoff: 2020 [facility] 100 ng/mL 1:39 PM ORTHOPEDIC TECHNICIAN [facility] Comment: Metabolite of oxymorphone and/or naloxon e (nornaloxone) Noroxymorphone Not Detected Cutoff: 25 04/27/2020 1:39 PM [facility] ng/mL ORTHOPEDIC TECHNICIAN [facility] Comment: Metabolite of oxymorphone and/or naloxon e (nornaloxone) Fentanyl Not Detected Cutoff: 2 ng/mL 04/27/2020 1:39 PM [facility] ORTHOPEDIC TECHNICIAN [facility] Comment: Actiq, Duragesic, Fentora Norfentanyl Not Detected Cutoff: 2 ng/mL 04/27/2020 1:39 PM [facility] ORTHOPEDIC TECHNICIAN [facility] Comment: Metabolite of fentanyl Meperidine Not Detected Cutoff: 25 ng/mL 04/27/2020 1:39 PM [facility] ORTHOPEDIC TECHNICIAN [facility] Comment: Demerol Normeperidine Not Detected Cutoff: 25 ng/mL 04/27/2020 1:39 PM [facility] ORTHOPEDIC TECHNICIAN [facility] Comment: Metabolite of meperidine Naloxone Not Detected Cutoff: 25 ng/mL 04/27/2020 1:39 PM [facility] ORTHOPEDIC TECHNICIAN [facility] Comment: Narcan Oiglghfr-1-fqkq-glucuronide Not Detected Cutoff: 100 021 [facility] ng/mL 1:39 PM ORTHOPEDIC TECHNICIAN [facility] Comment: Metabolite of naloxone Methadone Not Detected Cutoff: 25 ng/mL 04/27/2020 1:39 PM [facility] ORTHOPEDIC TECHNICIAN [facility] Comment: Dolophine EDDP Not Detected Cutoff: 25 ng/mL 04/27/2020 1:[address] [facility] Comment: Metabolite of methadone Propoxyphene Not Detected Cutoff: 25 ng/mL 04/27/2020 1:39 P [facility] Comment: Darvon, Darvocet Norpropoxyphene Not Detected Cutoff: 25 04/27/2020 1:39 PM [facility] ng/mL ORTHOPEDIC TECHNICIAN [facility] Comment: Metabolite of propoxyphene Tramadol Not Detected Cutoff: 25 ng/mL 04/27/2020 1:39 PM [facility] ORTHOPEDIC TECHNICIAN [facility] Comment: Tradol, Ultram, Ultracet O-desmethyltramadol Not Detected Cutoff: 25 04/27/2020 1:39 [facility] ng/mL PM ORTHOPEDIC TECHNICIAN [facility]IES Comment: Metabolite of tramadol Tapentadol Not Detected Cutoff: 25 ng/mL 04/27/2020 1:[address] [facility] Comment: Nucynta N-desmethyltapentadol Not Detected Cutoff: 50 04/27/2020 1:3 9 [facility] ng/mL PM ORTHOPEDIC TECHNICIAN [facility] Comment: Metabolite of tapentadol Uctwjrnizz-qmti-thlzycarmiw Not Detected Cutoff: 100 021 [facility] ng/mL 1:39 PM ORTHOPEDIC TECHNICIAN [facility] Comment: Metabolite of tapentadol Buprenorphine Present (A) Cutoff: 5 ng/mL 04/27/2020 1:[address] [facility] Comment: Buprenex, Suboxone Norbuprenorphine Present (A) Cutoff: 5 ng/mL 04/27/2020 1:[address] [facility] Comment: Metabolite of buprenorphine Norbuprenorphine Present (A) Cutoff: 20 04/27/2020 1:39 [facility] glucuronide ng/mL PM ORTHOPEDIC TECHNICIAN LAB[facility]IES Comment: Metabolite of buprenorphine Opioid Interpretation - 04/27/2020 1:39 PM ORTHOPEDIC TECHNICIAN [facility] Comment: Test detected the presence of buprenorph ine and its metabolites (norbuprenorphine, norbupren orphine glucuronide). Suspect use of buprenorphi ne within the past three days. ADDITIONAL INFORMATIO N This test was developed and its performa nce characteristics determined by [facility] in a manner co nsistent with CLIA requirements. This test has not been madeleine ared or approved by the U.S. Food and Drug Administration. Creatinine, Urine 227.8 mg/dL 04/27/2020 1:39 [facility] PM ORTHOPEDIC TECHNICIAN LABORATORIES Specific [place], 1.025 04/27/2020 1:39 [facility] Urine PM ORTHOPEDIC TECHNICIAN LABOR[facility]IES pH, Urine 5.6 04/27/2020 1:39 [facility] PM ORTHOPEDIC TECHNICIAN LAB[facility]IES Oxidants Negative Cutoff: 200 04/27/2020 1:39 [facility] mg/L PM ORTHOPEDIC TECHNICIAN [facility] Comment Normal 04/27/2020 1:39 [facility] PM ORTHOPEDIC TECHNICIAN LAB[facility]IES Alprazolam Not Detected Cutoff: 10 04/27/2020 1:39 [facility] ng/mL PM ORTHOPEDIC TECHNICIAN LAB[facility] Comment: Xanax Alpha-Hydroxyalprazolam UR Not Detected Cutoff: [facility] ng/mL 1:39 PM ORTHOPEDIC TECHNICIAN [facility] Comment: Metabolite of Alprazolam Alpha-Hydroxyalprazolam Not Detected Cutoff: 50 04/27/2020 [facility] Glucuron[facility] ng/mL 1:39 PM ORTHOPEDIC TECHNICIAN [facility] Comment: Metabolite of Alprazolam Chlordiazepoxide Not Detected Cutoff: 10 04/27/2020 1:39 [facility] ng/mL PM ORTHOPEDIC TECHNICIAN [facility] Comment: Librium Clobazam Not Detected Cutoff: 10 ng/mL 04/27/2020 1:39 PM [facility]THOPEDIC TECHNICIAN [facility] Comment: Frisium, Onfi N-Desmethylclobazam Not Detected Cutoff: 200 04/27/2020 1:39 [facility] ng/mL PM ORTHOPEDIC TECHNICIAN [facility] Comment: Metabolite of Clobazam Clonazepam Lvl Not Detected Cutoff: 04/27/2020 1:39 PM [facility] ng/mL ORTHOPEDIC TECHNICIAN [facility] Comment: Klonopin, Rivotril 7-Aminoclonazepam Not Detected Cutoff: 10 04/27/2020 1:39 [facility] ng/mL PM ORTHOPEDIC TECHNICIAN [facility] Comment: Metabolite of Clonazepam Diazepam UR Not Detected Cutoff: 04/27/2020 1:39 PM [facility] Quant ng/mL ORTHOPEDIC TECHNICIAN [facility] Comment: Valium Nordiazepam Not Detected Cutoff: 10 ng/mL 04/27/2020 1:39 PM [facility] ORTHOPEDIC TECHNICIAN LAB[facility] Comment: Metabolite of Chlordiazepoxide, Diazepam , or Prazepam. Flunitrazepam Not Detected Cutoff: 10 ng/mL 04/27/2020 1:39 PM [facility] ORTHOPEDIC TECHNICIAN [facility] Comment: Rohypnol 7-Aminoflunitrazepam Not Detected Cutoff: 10 04/27/2020 1:39 [facility] ng/mL PM ORTHOPEDIC TECHNICIAN [facility] Comment: Metabolite of Flunitrazepam Flurazepam Not Detected Cutoff: 10 ng/mL 04/27/2020 1:39 PM [facility] ORTHOPEDIC TECHNICIAN [facility] Comment: Dalmane 2- hydroxy ethyl Not Detected Cutoff: 10 04/27/2020 1:39 [facility] flurazepam ng/mL PM ORTHOPEDIC TECHNICIAN [facility] Comment: Metabolite of Flurazepam Lorazepam Not Detected Cutoff: 10 ng/mL 04/27/2020 1:39 PM [facility] ORTHOPEDIC TECHNICIAN [facility] Comment: Ativan Lorazepam Not Detected Cutoff: 50 04/27/2020 1:39 [facility] Glucuronide ng/mL PM ORTHOPEDIC TECHNICIAN LABOR[facility] Comment: Metabolite of Lorazepam Midazolam Not Detected Cutoff: 10 ng/mL 04/27/2020 1:39 PM [facility] ORTHOPEDIC TECHNICIAN [facility] Comment: Versed Alpha-Hydroxy Not Detected Cutoff: 10 04/27/2020 1:39 [facility] Midazolam ng/mL PM ORTHOPEDIC TECHNICIAN [facility] Comment: Metabolite of Midazolam Oxazepam Not Detected Cutoff: 10 ng/mL 04/27/2020 1:39 PM [facility] ORTHOPEDIC TECHNICIAN LAB[facility] Comment: Serax; Also a metabolite of Chlordiazepo xide, Diazepam, or Temazepam. Oxazepam Not Detected Cutoff: 50 04/27/2020 1:39 [facility] Glucuronide ng/mL PM ORTHOPEDIC TECHNICIAN LABORATORIES Comment: Metabolite of Oxazepam Prazepam, urine Not Detected Cutoff: 10 04/27/2020 1:39 PM [facility] ng/mL ORTHOPEDIC TECHNICIAN LAB[facility] Comment: Centrax Temazepam Not Detected Cutoff: 10 ng/mL 04/27/2020 1:39 PM [facility] ORTHOPEDIC TECHNICIAN [facility] Comment: Restoril; Also a metabolite of Diazepam. Temazepam Not Detected Cutoff: 50 04/27/2020 1:39 [facility] Glucuronide ng/mL PM ORTHOPEDIC TECHNICIAN LAB[facility] Comment: Metabolite of Temazepam Triazolam Not Detected Cutoff: 10 ng/mL 04/27/2020 1:39 PM [facility] ORTHOPEDIC TECHNICIAN [facility] Comment: Halcion Alpha-Hydroxy Not Detected Cutoff: 10 04/27/2020 1:39 [facility] Triazolam ng/mL PM ORTHOPEDIC TECHNICIAN LAB[facility] Comment: Metabolite of Triazolam Zolpidem Not Detected Cutoff: 10 ng/mL 04/27/2020 1:39 PM M [facility] Comment: Ambien Zolpidem Not Detected Cutoff: 04/27/2020 1:39 [facility] Kbxcvr-6-Flzlfgqtmu acid ng/mL PM ORTHOPEDIC TECHNICIAN LABOR ATOR[facility] Comment: Metabolite of Zolpidem Benzodiazepine, Interp - 04/27/2020 1:39 P M ORTHOPEDIC TECHNICIAN [facility] Comment: No benzodiazepines were detected. The ab sence of expected drug(s) and/or drug metabolite(s) may in dicate non-compliance, altered pharmacokinetics , inappropriate timing of specimen collection relative t o drug administration, diluted/adulterated urin e, or limitations of testing. ADDITIONAL INFORMATIO N This test was developed and its performa nce characteristics determined by [facility] in a manner co nsistent with CLIA requirements. This test has not been madeleine ared or approved by the U.S. Food and Drug Administration. Test Performed by: [place] [id number] [employer] Machine Tender: Benigno Selby M.D. Ph. D.; CLIA# [id number] List patient's Not provided 04/27/2020 1:39 PM ORTHOPEDIC TECHNICIAN [facility]IES Comment: ADDITIONAL INFORMATIO N Accuracy and completeness of declared me dications on reports solely dependent on information submitted by client. Specimen Anatomical Collection Method Collection Time Receive d Time (Source) Location / / Volume Laterality Urine 04/24/2020 10:20 04/24/2020 AM ORTHOPEDIC TECHNICIAN 12:58 PM ORTHOPEDIC TECHNICIAN Melissa Coronado DNP, STEEL SAMPLER, GRANTS DIRECTOR LAB URINE ORDERABLES Performing Organization Address City/State/ZIP Code Phon e Number [facility] see result attachment for specific address documented in this encounter Visit Diagnoses Diagnosis Opioid use disorder, moderate, in early remission, on maintenance therapy (HCC) documented in this encounter Care Teams Airline Customer Service Agent Relationship Specialty Start Date End Date None, Pcp PCP - General Packager And Strapper 02/06/19 [address] [place] [address] documented as of this encounter
--- OUTSIDE RECORDS SUMMARY | 2022-01-14 01:46 | XMS_ITS | Encounter Summary ---
:[address] [facility] Address [address] [place] [address] Care Team Providers Name Role Phone None, Pcp Primary Care Provider Unavailable Reason for Visit Reason Comments MAT Clinic Follow Up Last visit 04/24/2020 Encounter Details Date Type Department Care Team Description 05/01/2020 Office Visit SE MEDICATION Ivonne Melissa Opioid use disorder, ASSISTED TREATMENT K., DNP, BUSINESS ANALYST INTERN, ORNAMENT STAPLER moderate, in early [address] [place] remission, [place] [address] [place] maintenance therapy [phone] ([facility]) Social History Tobacco Use Types Packs/Day Years [...] 03/21/2020 relatives? How often do you attend sabianist or druze Not asked 03/21/2020 services? Do you belong to any clubs or organizations such as Not chinmay schilling 03/21/2020 sabianist groups, unions, fraternal or athletic groups, or [...] with No / Unsure 04/01/2020 8:38 PM VAULT TELLER someone who was confirmed or suspected to have Coronavirus / COVID-19? documented as of this encounter Last Filed Vital Signs Vital Sign Reading Time Taken Comments Blood Pressure 117/97 05/01/2020 1:28 PM VAULT TELLER Pulse 85 05/01/2020 1:28 PM VAULT TELLER Temperature 36.6 ??C (97.8 ??F) 05/01/2020 1:28 PM VAULT TELLER Respiratory Rate - - Oxygen Saturation 98% 05/01/2020 1:28 PM VAULT TELLER Inhaled Oxygen Concentration - - Weight - - Height - - Body Mass Index - - documented in this encounter Patient Instructions Patient InstructionsMelissa Coronado DNP, APRN, MIK - 05/01/2020 1:30 PM VAULT TELLER Continue Subutex 8 mg and 2 mg twice daily. Follow up with Melissa on , 05/08/2020, with lab prior. T TELLER documented in this encounter Progress Notes Melissa Coronado DNP, APRN, MIK - 05/01/2020 1:30 PM CST MAT Clinic Follow Up Note Discussion Date: 05/01/2020 2:43 PM CHIEF COMPLAINT: Anjali presents for MAT Clinic follow up visit for management of opioid use disorder. Last visit: 04/24/2020, Increased to 20 gm daily She has been taking Suboxone as prescribed: Yes Current total daily dose is 20 mg Suboxone film/tab count is within range: Yes Stores Suboxone securely: Yes Used any mood altering drugs since last visit: No Cravings for narcotics: No Suboxone side effects: No Urine Toxicology: awaiting results Ms. Anjali Hoang is a 30-year-old female who presents to the MAT clinic for Subutex follow-up. She is currently 17 weeks, 5 days ; last OB appointment was 04/23, no concerns noted other than weight gain little more than normal. Patient has been taking 10 mg twice a day which has been goingwell. She denies any illicit drug use but has been vaping nicotine quite heavily. States other girlsin the house smoke and vape inside the house and this is very difficult for her. Discussed the effects of nicotine in . She will attempt to decrease her nicotine use. She is currently residing at [facility]. She has her own car and is free to come and go. She is allowed visitation with her 6-year-old son who currently resides with her grandmother. Patient is aware she must continue to comply with urine drug screens at weekly follow-upvisits. FUNCTIONAL HEALTH Pain: mild cramping Mood: Hopeful and excited to move into sober living, looking forward to spending the weekend with her son Sleep: fair Appetite: normal, no concerns Employment status changes: not working now, in residential treatment Housing: lives at [facility]; leaves tomorrow to [address] [place], [place] [address]e [facility]. Current life stressors: Conflict with treatment staff Daily Functioning/ADLs: no concerns or changes Relationships/Social Support: friends, family Recovery Activities: in residential treatment currently ASSESSMENT AND FOLLOW UP PLAN: Opioid use disorder, moderate, in early remission, on maintenance therapy (HCC) It was a pleasure to visit with Ms. Hoang. She is maintained at stable dose of 20 mg Subutex daily. Cravings have subsided with the dose increase. Patient is currently 18 weeks , experiencing heartburn, feeling baby movements regularly, has OB appointments every month. Concerns: nicotine dependence; emotional health Last UDS results: as expected Today's Plan: Continue Subutex 20 mg daily with follow-up in 1 week Continue with MAT Clinic Treatment Program and plan of care. Patient Instructions Continue Subutex 8 mg and 2 mg twice daily. Follow up with Melissa on , 05/08/2020, with lab prior. Patient goals: Goals ??? secure housing (pt-stated) - work on securing housing at recovery is happening - this is on hold temporarily due to Covid outbreak - would like to apply for [facility] in the future to secure permament housing for her and romna Total time spent with patient was 28 minutes, greater than 50% of which was counseling/coordination of care, which included review of symptoms, education on medications and side effects, and treatment planning. Melissa Coronado DNP, NICHOLAS, MIK T TELLER documented in this encounter Miscellaneous Notes Assessment & Plan Note - Melissa Coronado DNP, APRN, CNP - 05/01/2020 2:40 PM CSTAssociated Problem(s): Opioid use disorder, moderate, in early remission, on maintenance therapy (HCC) It was a pleasure to visit with Ms. Hoang. She is maintained at stable dose of 20 mg Subutex daily. Cravings have subsided with the dose increase. Patient is currently 18 weeks , experiencing heartburn, feeling baby movements regularly, has OB appointments every month. Concerns: nicotine dependence; emotional health Last UDS results: as expected Today's Plan: Continue Subutex 20 mg daily with follow-up in 1 week T TELLER documented in this encounter Plan of Treatment Not on filedocumented as of this encounter Goals Goal Patient Goal Associated Recent Patient-Stated? Author Type Problems Progress secure housing General Yes Melissa Coronado DNP, NICHOLAS, ORNAMENT STAPLER Note: Formatting of this note might be d ifferent from the original. - has applied for several housing lists; waiting to hear back, wants to be near family documented as of this encounter Results (ABNORMAL) Controlled Substance Monitoring Panel, Urine (05/08/2020 9:31 AM VAULT TELLER) Component Value Ref Test Analysis Performed At Patholo gist Range Method Time Signature Amphetamines Negative Cutoff: 05/10/2020 [facility] 500 10:23 AM LABORATORIES ng/mL VAULT TELLER Barbiturates Negative Cutoff: 05/10/2020 [facility] 200 10:23 AM LABORATORIES ng/mL VAULT TELLER Cocaine Negative Cutoff: 05/10/2020 [facility] 150 10:23 AM LABORATORIES ng/mL VAULT TELLER Phencyclidine, Mec Negative Cutoff: 05/10/2020 [facility] 25 ng/mL 10:23 AM LABORATORIES VAULT TELLER Tetrahydrocannabinol Negative Cutoff: 05/10/2020 [facility] 50 ng/mL 10:23 AM LABORATORIES VAULT TELLER Comment: ADDITIONAL INFORMATIO N This report is intended for use in clini wilfred monitoring or management of patients. ??It is not inte nded for use in employment-related testing. Codeine Not Detected Cutoff: 25 ng/mL 05/10/2020 10:23 AM [facility] VA[facility] TELLER LABORATORIES Comment: Tylenol 3 Dznmnhg-7-gnmc-glucuronide Not Detected Cutoff: 100 05/10/19 21 [facility] ng/mL 10:23 AM [facility] LAB[facility]IES Comment: Metabolite of codeine Morphine Urine Not Detected Cutoff: 25 05/10/2020 10:23 [facility] ng/mL AM [facility] TELLER LABORATORIES Comment: Emilia Perry, MS Contin; Also a minor metabolite (10%) of codeine and can be seen in low concentra tions (<2,000 ng/mL) with poppy seed ingestion. Rftmrjiy-6-cwgq-glucuronide Not Detected Cutoff: 100 021 [facility] ng/mL 10:23 AM [facility] LAB[facility]IES Comment: Metabolite of morphine 6-monoacetylmorphine Not Detected Cutoff: 25 05/10/2020 10:2 3 [facility] ng/mL AM [facility]ER LAB[facility]ATORIES Comment: Metabolite of heroin Hydrocodone Not Detected Cutoff: 25 ng/mL 05/10/2020 10:23 [facility] Comment: Lortab, [place], Vicodin; Also a very phoenix r metabolite of codeine and impurity (<1%) of oxycodone. Norhydrocodone Not Detected Cutoff: 25 05/10/2020 10:23 [facility] ng/mL AM [facility] LAB[facility]ATORIES Comment: Metabolite of hydrocodone Dihydrocodeine Not Detected Cutoff: 25 05/10/2020 10:23 [facility] ng/mL AM [facility] Comment: Metabolite of hydrocodone Hydromorphone Not Detected Cutoff: 25 ng/mL 05/10/2020 10:23 [facility] Comment: Dilaudid, Exalgo; Also a metabolite of h ydrocodone and a minor (<5%) metabolite of morphine. Cniybmxskwftv-4-njod-glucuronide Not Cutoff: [facility] Detected 100 ng/mL 10:23 AM [facility] LAB[facility]ATORIES Comment: Metabolite of hydromorphone Oxycodone Not Detected Cutoff: 25 ng/mL 05/10/2020 10:23 AM [facility] Comment: Endocet, Percocet, Oxycontin Noroxycodone Not Detected Cutoff: 25 ng/mL 05/10/2020 10:23 AM [facility] Comment: Metabolite of oxycodone Oxymorphone Not Detected Cutoff: 25 ng/mL 05/10/2020 10:23 A [facility] TELLER LABORATORIES Comment: Numorphan, Opana; Also a metabolite of o xycodone. Gzppsxrxthe-1-hlvl-glucuronide Not Detected Cutoff: 2020 [facility] 100 ng/mL 10:23 AM [facility] LAB[facility]IES Comment: Metabolite of oxymorphone and/or naloxon e (nornaloxone) Noroxymorphone Not Detected Cutoff: 25 05/10/2020 10:23 [facility] ng/mL AM [facility] LAB[facility] Comment: Metabolite of oxymorphone and/or naloxon e (nornaloxone) Fentanyl Not Detected Cutoff: 2 ng/mL 05/10/2020 10:23 AM [facility] LAB[facility] Comment: Actiq, Duragesic, Fentora Norfentanyl Not Detected Cutoff: 2 ng/mL 05/10/2020 10:23 AM [facility] Comment: Metabolite of fentanyl Meperidine Not Detected Cutoff: 25 ng/mL 05/10/2020 10:23 AM [facility] Comment: Demerol Normeperidine Not Detected Cutoff: 25 ng/mL 05/10/2020 10:23 [facility] Comment: Metabolite of meperidine Naloxone Not Detected Cutoff: 25 ng/mL 05/10/2020 10:23 AM [facility] Comment: Narcan Vvmomajp-3-bebd-glucuronide Not Detected Cutoff: 100 021 [facility] ng/mL 10:23 AM [facility] Comment: Metabolite of naloxone Methadone Not Detected Cutoff: 25 ng/mL 05/10/2020 10:23 [facility] Comment: Dolophine EDDP Not Detected Cutoff: 25 ng/mL 05/10/2020 10:23 AM [facility] Comment: Metabolite of methadone Propoxyphene Not Detected Cutoff: 25 ng/mL 05/10/2020 10:23 AM [facility] Comment: Darvon, Darvocet Norpropoxyphene Not Detected Cutoff: 25 05/10/2020 10:23 [facility] ng/mL AM [facility] Comment: Metabolite of propoxyphene Tramadol Not Detected Cutoff: 25 ng/mL 05/10/2020 10:23 [facility] Comment: Tradol, Ultram, Ultracet O-desmethyltramadol Not Detected Cutoff: 25 05/10/2020 10:23 [facility] ng/mL AM [facility] LAB[facility] Comment: Metabolite of tramadol Tapentadol Not Detected Cutoff: 25 ng/mL 05/10/2020 10:23 [facility] Comment: Nucynta N-desmethyltapentadol Not Detected Cutoff: 50 05/10/2020 10: 23 [facility] ng/mL AM [facility] Comment: Metabolite of tapentadol Jnpusraxhk-wohs-maibejyfgre Not Detected Cutoff: 100 021 [facility] ng/mL 10:23 AM [facility] Comment: Metabolite of tapentadol Buprenorphine Present (A) Cutoff: 5 ng/mL 05/10/2020 10:23 [facility] Comment: Buprenex, Suboxone Norbuprenorphine Present (A) Cutoff: 5 ng/mL 05/10/2020 10:2 3 [facility] AM [facility] Comment: Metabolite of buprenorphine Norbuprenorphine Present (A) Cutoff: 20 05/10/2020 10:23 [facility] glucuronide ng/mL AM [facility] Comment: Metabolite of buprenorphine Opioid Interpretation - 05/10/2020 10:23 A M VAULT TELLER [facility] Comment: Test detected the presence of buprenorph ine and its metabolites (norbuprenorphine, norbupren orphine glucuronide). Suspect use of buprenorphi ne within the past three days. ADDITIONAL INFORMATIO N This test was developed and its performa nce characteristics determined by [facility] in a manner co nsistent with CLIA requirements. This test has not been madeleine ared or approved by the U.S. Food and Drug Administration. Creatinine, Urine 152.8 mg/dL 05/10/2020 10:23 [facility] Specific [place], 1.018 05/10/2020 10:23 [facility] Urine [facility] pH, Urine 6.7 05/10/2020 10:23 [facility] Oxidants Negative Cutoff: 200 05/10/2020 10:23 [facility] mg/L AM [facility] Comment Normal 05/10/2020 10:23 [facility] Alprazolam Not Detected Cutoff: 10 05/10/2020 10:23 [facility] ng/mL AM [facility] Comment: Xanax Alpha-Hydroxyalprazolam UR Not Detected Cutoff: 10 [facility] ng/mL 10:23 AM [facility] Comment: Metabolite of Alprazolam Alpha-Hydroxyalprazolam Not Detected Cutoff: 50 05/10/2020 [facility] Glucuronide ng/mL 10:23 AM [facility] Comment: Metabolite of Alprazolam Chlordiazepoxide Not Detected Cutoff: 10 05/10/2020 10:23 [facility] ng/mL AM [facility] Comment: Librium Clobazam Not Detected Cutoff: 10 ng/mL 05/10/2020 10:23 AM [facility] Comment: Frisium, Onfi N-Desmethylclobazam Not Detected Cutoff: 200 05/10/2020 10:2 3 [facility] ng/mL AM [facility] Comment: Metabolite of Clobazam Clonazepam Lvl Not Detected Cutoff: 10 05/10/2020 10:23 [facility] ng/mL AM [facility] Comment: Klonopin, Rivotril 7-Aminoclonazepam Not Detected Cutoff: 10 05/10/2020 10:23 [facility] ng/mL AM [facility] Comment: Metabolite of Clonazepam Diazepam UR Not Detected Cutoff: 10 05/10/2020 10:23 [facility] Quant ng/mL AM [facility] LAB[facility] Comment: Valium Nordiazepam Not Detected Cutoff: 10 ng/mL 05/10/2020 10:23 A M [facility] Comment: Metabolite of Chlordiazepoxide, Diazepam , or Prazepam. Flunitrazepam Not Detected Cutoff: 10 ng/mL 05/10/2020 10:23 [facility] AM [facility] LAB[facility] Comment: Rohypnol 7-Aminoflunitrazepam Not Detected Cutoff: 10 05/10/2020 10:2 3 [facility] ng/mL AM [facility] Comment: Metabolite of Flunitrazepam Flurazepam Not Detected Cutoff: 10 ng/mL 05/10/2020 10:23 AM [facility] Comment: Dalmane 2- hydroxy ethyl Not Detected Cutoff: 10 05/10/2020 10:23 [facility] flurazepam ng/mL AM [facility] Comment: Metabolite of Flurazepam Lorazepam Not Detected Cutoff: 10 ng/mL 05/10/2020 10:23 AM [facility] Comment: Ativan Lorazepam Not Detected Cutoff: 50 05/10/2020 10:23 [facility] Glucuronide ng/mL AM [facility] Comment: Metabolite of Lorazepam Midazolam Not Detected Cutoff: 10 ng/mL 05/10/2020 10:23 AM [facility] Comment: Versed Alpha-Hydroxy Not Detected Cutoff: 10 05/10/2020 10:23 [facility] Midazolam ng/mL AM [facility] Comment: Metabolite of Midazolam Oxazepam Not Detected Cutoff: 10 ng/mL 05/10/2020 10:23 AM [facility] Comment: Serax; Also a metabolite of Chlordiazepo xide, Diazepam, or Temazepam. Oxazepam Not Detected Cutoff: 50 05/10/2020 10:23 [facility] Glucuronide ng/mL AM [facility] Comment: Metabolite of Oxazepam Prazepam, urine Not Detected Cutoff: 10 05/10/2020 10:23 [facility] ng/mL AM [facility] Comment: Centrax Temazepam Not Detected Cutoff: 10 ng/mL 05/10/2020 10:23 AM [facility] Comment: Restoril; Also a metabolite of Diazepam. Temazepam Not Detected Cutoff: 50 05/10/2020 10:23 [facility] Glucuronide ng/mL AM [facility] Comment: Metabolite of Temazepam Triazolam Not Detected Cutoff: 10 ng/mL 05/10/2020 10:23 [facility] Comment: Halcion Alpha-Hydroxy Not Detected Cutoff: 10 05/10/2020 10:23 [facility] Triazolam ng/mL AM [facility] Comment: Metabolite of Triazolam Zolpidem Not Detected Cutoff: 10 ng/mL 05/10/2020 10:23 AM [facility] Comment: Ambien Zolpidem Not Detected Cutoff: 10 05/10/2020 [facility] Fughkw-9-Fnzhkdyaex acid ng/mL 10:23 AM [facility] Comment: Metabolite of Zolpidem Benzodiazepine, Interp - 05/10/2020 10:23 AM VAULT TELLER [facility] Comment: No benzodiazepines were detected. The ab sence of expected drug(s) and/or drug metabolite(s) may in dicate non-compliance, altered pharmacokinetics , inappropriate timing of specimen collection relative t o drug administration, diluted/adulterated urin e, or limitations of testing. ADDITIONAL INFORMATIO N This test was developed and its performa nce characteristics determined by [facility] in a manner co nsistent with CLIA requirements. This test has not been madeleine ared or approved by the U.S. Food and Drug Administration. Test Performed by: [place] [id number] [employer] Cablemaking Machine Operator: Benigno Selby M.D. Ph. D.; CLIA# [id number] List patient's Not provided 05/10/2020 10:23 AM [facility] Comment: ADDITIONAL INFORMATIO N Accuracy and completeness of declared me dications on reports solely dependent on information submitted by client. Specimen Anatomical Collection Method Collection Time Receive d Time (Source) Location / / Volume Laterality Urine 05/08/2020 9:31 AM VAULT TELLER 12:51 PM VAULT TELLER Melissa Coronado DNP, BUSINESS ANALYST INTERN, ORNAMENT STAPLER LAB URINE ORDERABLES Performing Organization Address City/State/ZIP Code Phon e Number [facility] see result attachment for specific address documented in this encounter Visit Diagnoses Diagnosis Opioid use disorder, moderate, in early remission, on maintenance therapy (HCC) documented in this encounter Care Teams Signal Supervisor Relationship Specialty Start Date End Date None, Pcp PCP - General Freight Handler 02/06/19 [address] [place] [address] documented as of this encounter
--- OUTSIDE RECORDS SUMMARY | 2022-01-14 01:46 | XMS_ITS | Encounter Summary ---
:1990 Author Organization [facility] Address [address] [place] [id number] Care Team Providers Name Role Phone None, Pcp Primary Care Provider Unavailable Encounter Details Date Type Department Care Team Description 05/08/2020 Orders Only [facility]'s Health Jenn [place] rvision of high risk , antepartum (Primary Dx); [facility] Nausea and vomiting in prior t o 22 weeks gestation Natural Developer [address] [facility] [address] [place] [address] [place], [place] [phone] Social History Tobacco Use Types Packs/Day Years [...] 03/21/2020 relatives? How often do you attend mandaeism or yarsanism Not asked 03/21/2020 services? Do you belong to any clubs or organizations such as Argelia schilling 03/21/2020 mandaeism groups, unions, fraternal or athletic groups, or [...] secure housing General Yes Melissa Coronado, DNP, PROFESSOR OF CHEMICAL ENGINEERING, FLUID JET CUTTER OPERATOR Note: Formatting of this note might be d ifferent from the original. - has applied for several housing lists; waiting to hear back, wants to be near family documented as of this encounter Visit Diagnoses Diagnosis Supervision of high risk , ante - Primary Nausea and vomiting in prior t o 22 weeks gestation documented in this encounter Care Teams Benzene Washer Operator Relationship Specialty Start Date End Date None, Pcp PCP - General Manager Of School 02/06/[address] [place] [phone] documented as of this encounter
--- OUTSIDE RECORDS SUMMARY | 2022-01-14 01:46 | XMS_ITS | Encounter Summary ---
:1990 Author Organization [facility] Address [address] [place] [address] Care Team Providers Name Role Phone None, Pcp Primary Care Provider Unavailable Reason for Visit Reason Comments MAT Clinic Follow Up Encounter Details Date Type Department Care Team Description 05/08/2020 Office Visit SE MEDICATION Ivonne, Ion Opioid use disorder, ASSISTED TREATMENT KVanessa, DNP, HIGH SCHOOL FOREIGN LANGUAGE TUTOR, DIE CAST PATTERNMAKER moderate, in early [address], [place] [address] [place] maintenance therapy [phone] ([facility]) Social History Tobacco Use Types Packs/Day [...] 03/21/2020 relatives? How often do you attend amish or restorationism Not asked 03/21/2020 services? Do you belong to any clubs or organizations such as Not chinmay schilling 03/21/2020 amish groups, unions, fraternal or athletic groups, or [...] Reading Time Taken Comments Blood Pressure 126/75 05/08/2020 9:36 AM MACHINE ATTENDANT Pulse 101 05/08/2020 9:36 AM MACHINE ATTENDANT Temperature 36.8 ??C (98.3 ??F) 05/08/2020 9:36 AM MACHINE ATTENDANT Respiratory Rate - - Oxygen Saturation 100% 05/08/2020 9:36 AM MACHINE ATTENDANT Inhaled Oxygen Concentration - - Weight - - Height - - Body Mass Index - - documented in this encounter Patient Instructions Patient InstructionsIon Coronado DNP, HIGH SCHOOL FOREIGN LANGUAGE TUTOR, DIE CAST PATTERNMAKER - 05/08/2020 9:30 AM MACHINE ATTENDANT Continue Subutex 8 mg and 2 mg twice daily. Start nicotine gum and stop vaping. Follow up with Ion on , 05/22/2020, with lab prior. INE ATTENDANT documented in this encounter Progress Notes Ion Coronado DNP, NICHOLAS, DIE CAST PATTERNMAKER - 05/08/2020 9:30 AM CST MAT Clinic Follow Up Note Discussion Date: 05/08/2020 9:56 AM CHIEF COMPLAINT: Anjali presents for MAT Clinic follow up visit for management of opioid use disorder. Last visit: 05/01/2020, 20 gm daily going well She has been taking Suboxone as prescribed: Yes Current total daily dose is 20 mg Suboxone film/tab count is within range: Yes Stores Suboxone securely: Yes, recently bought a lock box because someone in the house took one of her tablets Used any mood altering drugs since last visit: No Cravings for narcotics: No Suboxone side effects: No Urine Toxicology: awaiting results Ms. Anjali Hoang is a 30-year-old female who presents to the MAT clinic for Subutex follow-up. She is currently 18+ weeks . Last OB appointment was 04/23, no concerns noted other than weight gain little more than normal. Patient has been taking 10 mg Subutex twice a day which has been going well. She denies any illicit drug use. Last week we discussed cutting down on nicotine vaping. Today she reports she continues to struggle with vaping and thinks this is making her heartburn worse. She requests nicotine gum. She is aware this might continue to cause heartburn, but she is motivated todecrease nicotine intake for the sake of her child, and I applauded these efforts. She is currently residing at [facility]. She has her own car and is [...] she feels would be best for her. [facility] Pain: mild cramping Mood: Hopeful and excited to move into sober living, looking forward to spending the weekend with her son Sleep: fair Appetite: normal, no concerns Employment status changes: not working now, in residential treatment Housing: lives [facility]; leaves tomorrow to [address] [place], [place] [id number] [facility]. Current life stressors: Considering breaking it [...] mg and 2 mg twice daily. Start nicotine gum and stop vaping. Follow up with Ion on , 05/22/2020, with lab prior. Patient goals: Goals ??? secure housing (pt-stated) - work on securing housing at recovery is happening - this is on hold temporarily due to Covid outbreak - would like to apply for [facility] in the future to secure permament housing for her and herckatarinald Total time spent with patient was 28 minutes, greater than 50% of which was counseling/coordination of care, which included review of symptoms, education on medications and side effects, and treatment planning. Ion Coronado DNP, APRN, CNP INE ATTENDANT documented in this encounter Miscellaneous Notes Assessment & Plan Note - Ion Coronado DNP, APRN, CNP - 05/08/2020 9:54 AM CSTAssociated Problem(s): Opioid use disorder, moderate, in [...] mg daily with follow-up in 2 weeks INE ATTENDANT Addendum Note - Ion Coronado DNP, APRN, CNP - 05/08/2020 9:30 AM MACHINE ATTENDANT Addended by: ION CORONADO on: 05/22/2020 01:30 PM Modules accepted: Orders INE ATTENDANT documented in this encounter Plan of Treatment Not on filedocumented as of this encounter Goals Goal Patient Goal Associated Recent Patient-Stated? Author Type Problems Progress secure housing General Yes Ion Coronado, DNP, HIGH SCHOOL FOREIGN LANGUAGE TUTOR, DIE CAST PATTERNMAKER Note: Formatting of this note might be d ifferent from the original. - has applied for several housing lists; waiting to hear back, wants to be near family Quit using tobacco (cigarettes, Tobacco Use No Ion Coronado, JUAN DIEGO, HIGH SCHOOL FOREIGN LANGUAGE TUTOR, smokeless, etc) DIE CAST PATTERNMAKER Note: Formatting of this note might be d ifferent from the original. Will use nicorette gum in case of breakt hrough craving. Will find some candy or suckers to use d uring group to occupy her hands/oral fixation documented as of this encounter Results (ABNORMAL) Controlled Substance Monitoring Panel, Urine (05/22/2020 1:39 PM MACHINE ATTENDANT) Component Value Ref Test Analysis Performed At [facility] Range Method Time Signature Amphetamines Negative Cutoff: 05/24/2020 [facility] 500 1:22 PM MACHINE ATTENDANT LABORATORIES ng/mL Barbiturates Negative Cutoff: 05/24/2020 [facility] 200 1:22 PM MACHINE ATTENDANT LAB[facility]IES ng/mL Cocaine Negative Cutoff: 05/24/2020 [facility] 150 1:22 PM MACHINE ATTENDANT LABORATORIES ng/mL Phencyclidine, Mec Negative Cutoff: 05/24/2020 [facility] 25 ng/mL 1:22 PM MACHINE ATTENDANT LAB[facility]ATORIES Tetrahydrocannabinol Negative Cutoff: 05/24/2020 [facility] 50 ng/mL 1:22 PM MACHINE ATTENDANT LAB[facility]IES Comment: ADDITIONAL INFORMATIO N This report is intended for use in clini wilfred monitoring or management of patients. ??It is not inte nded for use in employment-related testing. Codeine Not Detected Cutoff: 25 ng/mL 05/24/2020 1:22 PM [facility] MACHINE ATTENDANT LABORATORIES Comment: Tylenol 3 Rbglkwb-8-qhvt-glucuronide Not Detected Cutoff: 100 05/24/19 21 [facility] ng/mL 1:22 PM MACHINE ATTENDANT [facility]IES Comment: Metabolite of codeine Morphine Urine Not Detected Cutoff: 25 05/24/2020 1:22 PM [facility] ng/mL MACHINE ATTENDANT LABOR[facility]IES Comment: Emilia Perry, MS Contin; Also a minor metabolite (10%) of codeine and can be seen in low concentra tions (<2,000 ng/mL) with poppy seed ingestion. Nlnbrbdl-7-hyfa-glucuronide Not Detected Cutoff: 100 021 [facility] ng/mL 1:22 PM MACHINE ATTENDANT LABORATORIES Comment: Metabolite of morphine 6-monoacetylmorphine Not Detected Cutoff: 25 05/24/2020 1:22 [facility] ng/mL PM MACHINE ATTENDANT LABORATORIES Comment: Metabolite of heroin Hydrocodone Not Detected Cutoff: 25 ng/mL 05/24/2020 1:22 PM [facility] MACHINE ATTENDANT [facility]ATORIES Comment: Lortab, Olivia, Vicodin; Also a very phoenix r metabolite of codeine and impurity (<1%) of oxycodone. Norhydrocodone Not Detected Cutoff: 05/24/2020 1:22 PM [facility] ng/mL MACHINE ATTENDANT [facility] Comment: Metabolite of hydrocodone Dihydrocodeine Not Detected Cutoff: 25 05/24/2020 1:22 PM [facility] ng/mL MACH[facility] ATTEND[facility] Comment: Metabolite of hydrocodone Hydromorphone Not Detected Cutoff: 25 ng/mL 05/24/2020 1:22 PM [facility] MACHINE ATTENDANT [facility]ATORIES Comment: Dilaudid, Exalgo; Also a metabolite of h ydrocodone and a minor (<5%) metabolite of morphine. Iqinegepnvsvm-3-dyhn-glucuronide Not Cutoff: [facility] Detected 100 ng/mL 1:22 PM MACHINE ATTENDANT [facility] Comment: Metabolite of hydromorphone Oxycodone Not Detected Cutoff: 25 ng/mL 05/24/2020 1:22 PM [facility] MACHINE ATTENDANT LABORATORIES Comment: Endocet, Percocet, Oxycontin Noroxycodone Not Detected Cutoff: 25 ng/mL 05/24/2020 1:22 P M [facility] MACHINE ATTENDANT [facility] Comment: Metabolite of oxycodone Oxymorphone Not Detected Cutoff: 25 ng/mL 05/24/2020 1:22 PM [facility] MACHINE ATTENDANT [facility] Comment: Numorphan, Opana; Also a metabolite of o xycodone. Tbqpvddpomv-7-ddiq-glucuronide Not Detected Cutoff: 2020 [facility] 100 ng/mL 1:22 PM MACHINE ATTENDANT LABOR[facility]IES Comment: Metabolite of oxymorphone and/or naloxon e (nornaloxone) Noroxymorphone Not Detected Cutoff: 25 05/24/2020 1:22 PM [facility] ng/mL MACHINE ATTENDANT LABORATORIES Comment: Metabolite of oxymorphone and/or naloxon e (nornaloxone) Fentanyl Not Detected Cutoff: 2 ng/mL 05/24/2020 1:22 PM [facility] MACHINE ATTENDANT LABORATORIES Comment: Actiq, Duragesic, Fentora Norfentanyl Not Detected Cutoff: 2 ng/mL 05/24/2020 1:22 PM [facility] MACHINE ATTENDANT [facility] Comment: Metabolite of fentanyl Meperidine Not Detected Cutoff: 25 ng/mL 05/24/2020 1:22 PM [facility] MACHINE ATTENDANT [facility] Comment: Demerol Normeperidine Not Detected Cutoff: 25 ng/mL 05/24/2020 1:22 PM [facility] MACHINE ATTENDANT [facility] Comment: Metabolite of meperidine Naloxone Not Detected Cutoff: 25 ng/mL 05/24/2020 1:22 PM [facility] MACHINE ATTENDANT LABORATORIES Comment: Narcan Wewaudlr-1-nznt-glucuronide Not Detected Cutoff: 100 021 [facility] ng/mL 1:22 PM MACHINE ATTENDANT LABOR[facility] Comment: Metabolite of naloxone Methadone Not Detected Cutoff: 25 ng/mL 05/24/2020 1:22 PM [facility] MACHINE ATTENDANT LABORATORIES Comment: Dolophine EDDP Not Detected Cutoff: 25 ng/mL 05/24/2020 1:22 PM [facility] Comment: Metabolite of methadone Propoxyphene Not Detected Cutoff: 25 ng/mL 05/24/2020 1:22 P [facility] MACHINE ATTENDANT LABORATORIES Comment: Darvon, Darvocet Norpropoxyphene Not Detected Cutoff: 25 05/24/2020 1:22 PM [facility] ng/mL MACHINE ATTENDANT LABORATORIES Comment: Metabolite of propoxyphene Tramadol Not Detected Cutoff: 25 ng/mL 05/24/2020 1:22 PM [facility] MACHINE ATTENDANT LABORATORIES Comment: Tradol, Ultram, Ultracet O-desmethyltramadol Not Detected Cutoff: 25 05/24/2020 1:22 [facility] ng/mL PM MACHINE ATTENDANT LABORATORIES Comment: Metabolite of tramadol Tapentadol Not Detected Cutoff: 25 ng/mL 05/24/2020 1:22 PM [facility] MACHINE ATTENDANT LABORATORIES Comment: Nucynta N-desmethyltapentadol Not Detected Cutoff: 50 05/24/2020 1:2 2 [facility] ng/mL PM MACHINE ATTENDANT LABORATORIES Comment: Metabolite of tapentadol Jmeqbzudov-vzlc-wsqapdpfgej Not Detected Cutoff: 100 021 [facility] ng/mL 1:22 PM MACHINE ATTENDANT [facility] Comment: Metabolite of tapentadol Buprenorphine Not Detected Cutoff: 5 ng/mL 05/24/2020 1:22 P M [facility] MACHINE ATTENDANT LABOR[facility]IES Comment: Buprenex, Suboxone Norbuprenorphine Present (A) Cutoff: 5 ng/mL 05/24/2020 1:22 PM [facility] MACHINE ATTENDANT LABOR[facility]IES Comment: Metabolite of buprenorphine Norbuprenorphine Present (A) Cutoff: 20 05/24/2020 1:22 [facility] glucuronide ng/mL PM MACHINE ATTENDANT LABORATORIES Comment: Metabolite of buprenorphine Opioid Interpretation - 05/24/2020 1:22 PM MACHINE ATTENDANT [facility] Comment: Test detected the presence of norbupreno rphine and norbuprenorphine glucuronide which are m etabolites of buprenorphine. Suspect use of buprenorph ine within the past three days. ADDITIONAL INFORMATIO N This test was developed and its performa nce characteristics determined by [facility] in a manner co nsistent with CLIA requirements. This test has not been madeleine ared or approved by the U.S. Food and Drug Administration. Creatinine, Urine 84.1 mg/dL 05/24/2020 1:22 [facility] PM MACHINE ATTENDANT LABORATORIES Specific Mcgraw, 1.013 05/24/2020 1:22 [facility] Urine PM MACHINE ATTENDANT LABORATORIES pH, Urine 7.0 05/24/2020 1:22 [facility] MACHINE ATTENDANT LABORATORIES Oxidants Negative Cutoff: 200 05/24/2020 1:22 [facility] mg/L PM MACHINE ATTENDANT LAB[facility] Comment Normal 05/24/2020 1:22 [facility] MACHINE ATTENDANT LABORATORIES Alprazolam Not Detected Cutoff: 10 05/24/2020 1:22 [facility] ng/mL PM MACHINE ATTENDANT LABOR[facility] Comment: Xanax Alpha-Hydroxyalprazolam UR Not Detected Cutoff: 10 [facility] ng/mL 1:22 PM MACHINE ATTENDANT LABOR[facility] Comment: Metabolite of Alprazolam Alpha-Hydroxyalprazolam Not Detected Cutoff: 50 05/24/2020 [facility] Glucuron[facility] ng/mL 1:22 PM MACHINE ATTENDANT [facility]OR[facility] Comment: Metabolite of Alprazolam Chlordiazepoxide Not Detected Cutoff: 10 05/24/2020 1:22 [facility] ng/mL PM MACHINE ATTENDANT [facility] Comment: Librium Clobazam Not Detected Cutoff: 10 ng/mL 05/24/2020 1:22 PM [facility] MACHINE ATTENDANT [facility] Comment: Frisium, Onfi N-Desmethylclobazam Not Detected Cutoff: 200 05/24/2020 1:22 [facility] ng/mL PM MACHINE ATTENDANT [facility] Comment: Metabolite of Clobazam Clonazepam Lvl Not Detected Cutoff: 10 05/24/2020 1:22 PM [facility] ng/mL MACHINE ATTENDANT [facility] Comment: Klonopin, Rivotril 7-Aminoclonazepam Not Detected Cutoff: 10 05/24/2020 1:22 [facility] ng/mL PM MACHINE ATTENDANT [facility] Comment: Metabolite of Clonazepam Diazepam UR Not Detected Cutoff: 05/24/2020 1:22 PM [facility] Quant ng/mL MACHINE ATTENDANT LAB[facility] Comment: Valium Nordiazepam Not Detected Cutoff: 10 ng/mL 05/24/2020 1:22 PM [facility] MACHINE ATTENDANT [facility]OR[facility] Comment: Metabolite of Chlordiazepoxide, Diazepam , or Prazepam. Flunitrazepam Not Detected Cutoff: 10 ng/mL 05/24/2020 1:22 PM [facility] MACHINE ATTENDANT LABORATOR[facility] Comment: Rohypnol 7-Aminoflunitrazepam Not Detected Cutoff: 10 05/24/2020 1:22 [facility] ng/mL PM MACHINE ATTENDANT [facility] Comment: Metabolite of Flunitrazepam Flurazepam Not Detected Cutoff: 10 ng/mL 05/24/2020 1:22 PM [facility] MACHINE ATTENDANT [facility]OR[facility] Comment: Dalmane 2- hydroxy ethyl Not Detected Cutoff: 10 05/24/2020 1:22 [facility] flurazepam ng/mL PM MACHINE ATTENDANT [facility] Comment: Metabolite of Flurazepam Lorazepam Not Detected Cutoff: 10 ng/mL 05/24/2020 1:22 PM [facility] MACHINE ATTENDANT [facility] Comment: Ativan Lorazepam Not Detected Cutoff: 50 05/24/2020 1:22 [facility] Glucuronide ng/mL PM MACHINE ATTENDANT LABOR[facility] Comment: Metabolite of Lorazepam Midazolam Not Detected Cutoff: 10 ng/mL 05/24/2020 1:22 PM [facility] MACHINE ATTENDANT LABORATOR[facility] Comment: Versed Alpha-Hydroxy Not Detected Cutoff: 10 05/24/2020 1:22 [facility] Midazolam ng/mL PM MACHINE ATTENDANT [facility]OR[facility] Comment: Metabolite of Midazolam Oxazepam Not Detected Cutoff: 10 ng/mL 05/24/2020 1:22 PM [facility] Comment: Serax; Also a metabolite of Chlordiazepo xide, Diazepam, or Temazepam. Oxazepam Not Detected Cutoff: 50 05/24/2020 1:22 [facility] Glucuronide ng/mL PM MACHINE ATTENDANT LABORATORIES Comment: Metabolite of Oxazepam Prazepam, urine Not Detected Cutoff: 10 05/24/2020 1:22 PM [facility] ng/mL MACHINE ATTENDANT LABORATORIES Comment: Centrax Temazepam Not Detected Cutoff: 10 ng/mL 05/24/2020 1:22 PM [facility] Comment: Restoril; Also a metabolite of Diazepam. Temazepam Not Detected Cutoff: 50 05/24/2020 1:22 [facility] Glucuronide ng/mL PM MACHINE ATTENDANT [facility]OR[facility] Comment: Metabolite of Temazepam Triazolam Not Detected Cutoff: 10 ng/mL 05/24/2020 1:22 PM [facility] Comment: Halcion Alpha-Hydroxy Not Detected Cutoff: 05/24/2020 1:22 [facility] Triazolam ng/mL PM MACHINE ATTENDANT [facility] Comment: Metabolite of Triazolam Zolpidem Not Detected Cutoff: 10 ng/mL 05/24/2020 1:22 PM [facility] Comment: Ambien Zolpidem Not Detected Cutoff: 05/24/2020 1:22 [facility] Mlxpgj-3-Ambljdneqk acid ng/mL PM MACHINE ATTENDANT LABOR ATORIES Comment: Metabolite of Zolpidem Benzodiazepine, Interp - 05/24/2020 1:22 P M MACHINE ATTENDANT [facility] Comment: No benzodiazepines were detected. The ab sence of expected drug(s) and/or drug metabolite(s) may in dicate non-compliance, altered pharmacokinetics , inappropriate timing of specimen collection relative t o drug administration, diluted/adulterated urin e, or limitations of testing. ADDITIONAL INFORMATIO N This test was developed and its performa nce characteristics determined by [facility] in a manner co nsistent with CLIA requirements. This test has not been madeleine ared or approved by the U.S. Food and Drug Administration. Test Performed by: [facility] [address] [place], [place] [address] Doctor Podiatric Medicine: Benigno Selby M.D. Ph. D.; CLIA# [id number] List patient's Not provided 05/24/2020 1:22 PM MACHINE ATTENDANT [facility] Comment: ADDITIONAL INFORMATIO N Accuracy and completeness of declared me dications on reports solely dependent on information submitted by client. Specimen Anatomical Collection Method Collection Time Receive d Time (Source) Location / / Volume Laterality Urine 05/22/2020 1:39 PM 1:50 MACHINE ATTENDANT PM MACHINE ATTENDANT Ion Coronado DNP, HIGH SCHOOL FOREIGN LANGUAGE TUTOR, DIE CAST PATTERNMAKER LAB URINE ORDERABLES Performing Organization Address City/State/ZIP Code Phon e Number [facility] see result attachment for specific address documented in this encounter Visit Diagnoses Diagnosis Opioid use disorder, moderate, in early remission, on maintenance therapy (HCC) documented in this encounter Care Teams Mine Expert Relationship Specialty Start Date End Date None, Pcp PCP - General Large Animal Veterinarian 02/06/19 [address] [place] [address] documented as of this encounter
--- OUTSIDE RECORDS SUMMARY | 2022-01-14 01:46 | XMS_ITS | Encounter Summary ---
:1990 Author Organization [facility] Address [address] [place] [address] Care Team Providers Name Role Phone None, Pcp Primary Care Provider Unavailable Encounter Details Date Type Department Care Team Description 05/08/2020 Lab SE Lab History of hepatitis C virus infection; [address] Opioid use disorder, moderat e, in early remission, on maintenance therapy (HCC) [place] [address] Social History Tobacco Use Types [...] How often do you attend advent or uatsdin Not asked 03/21/2020 services? Do you belong [...] secure housing General Yes Melissa Coronado, DNP, PLASTERER ROUGH, OVERLOCK OPERATOR Note: Formatting of this note might be d ifferent from the original. - has applied for several housing lists; waiting to hear back, wants to be near family documented as of this encounter Procedures Procedure Name Priority Date/Time Associated Diagnosis Comme nts CONTROLLED Routine 05/08/2020 9:31 AM Opioid use disorder, R esults for this SUBSTANCES TOBACCO CLASSER moderate, in early procedure are in MONITORING PANEL, remission, on the resul ts URINE maintenance therapy section. (HCC) HEPATITIS C VIRUS, Routine 05/08/2020 9:31 AM History of hepat itis Results for this RIBA TOBACCO CLASSER C virus infection procedure are in the results section. documented in this encounter Results (ABNORMAL) Controlled Substance Monitoring Panel, Urine (05/08/2020 9:31 AM TOBACCO CLASSER) Component Value Ref Test Analysis Performed At [facility] Range Method Time Signature Amphetamines Negative Cutoff: 05/10/2020 [facility] 500 10:23 AM LABORATORIES ng/mL TOBACCO CLASSER Barbiturates Negative Cutoff: 05/10/2020 [facility] 200 10:23 AM LABORATORIES ng/mL TOBACCO CLASSER Cocaine Negative Cutoff: 05/10/2020 [facility] 150 10:23 AM LABORATORIES ng/mL TOBACCO CLASSER Phencyclidine, Mec Negative Cutoff: 05/10/2020 [facility] 25 ng/mL 10:23 AM LABORATORIES TOBACCO CLASSER Tetrahydrocannabinol Negative Cutoff: 05/10/2020 [facility] 50 ng/mL 10:23 AM LABORATORIES TOBACCO CLASSER Comment: ADDITIONAL INFORMATIO N This report is intended for use in clini wilfred monitoring or management of patients. ??It is not inte nded for use in employment-related testing. Codeine Not Detected Cutoff: 25 ng/mL 05/10/2020 10:[address] [facility] TOBACCO CLASSER LABORATORIES Comment: Tylenol 3 Llijezg-5-rkwo-glucuronide Not Detected Cutoff: 100 05/10/[address] [facility] ng/mL 10:23 AM TOBACCO CLASSER LABORATORIES Comment: Metabolite of codeine Morphine Urine Not Detected Cutoff: 25 05/10/2020 10:23 [facility] ng/mL AM TOBACCO CLASSER LABORATORIES Comment: Emilia Perry, MS Contin; Also a minor metabolite (10%) of codeine and can be seen in low concentra tions (<2,000 ng/mL) with poppy seed ingestion. Zboodtrg-6-mewc-glucuronide Not Detected Cutoff: [address] [facility] ng/mL 10:23 AM TOBACCO CLASSER LABORATORIES Comment: Metabolite of morphine 6-monoacetylmorphine Not Detected Cutoff: 25 05/10/2020 10:[address] [facility] ng/mL AM TOBACCO CLASSER LABORATORIES Comment: Metabolite of heroin Hydrocodone Not Detected Cutoff: 25 ng/mL 05/10/2020 10:23 A M [facility] Comment: Lortab, [place], Vicodin; Also a very pho[place] r metabolite of codeine and impurity (<1%) of oxycodone. Norhydrocodone Not Detected Cutoff: 25 05/10/2020 10:23 [facility] ng/mL AM TOBACCO CLASSER LABORATORIES Comment: Metabolite of hydrocodone Dihydrocodeine Not Detected Cutoff: 25 05/10/2020 10:23 [facility] ng/mL AM TOBACCO CLASSER LABORATORIES Comment: Metabolite of hydrocodone Hydromorphone Not Detected Cutoff: 25 ng/mL 05/10/2020 10:23 [facility] AM TOBACCO CLASSER LABORATORIES Comment: Dilaudid, Exalgo; Also a metabolite of h ydrocodone and a minor (<5%) metabolite of morphine. Totrqdkjesrel-3-xfvc-glucuronide Not Cutoff: 021 [facility] Detected 100 ng/mL 10:23 AM TOBACCO CLASSER LABORATORIES Comment: Metabolite of hydromorphone Oxycodone Not Detected Cutoff: 25 ng/mL 05/10/2020 10:[address] [facility] TOBACCO CLASSER LABORATORIES Comment: Endocet, Percocet, Oxycontin Noroxycodone Not Detected Cutoff: 25 ng/mL 05/10/2020 10:[address] [facility] TOBACCO CLASSER LABORATORIES Comment: Metabolite of oxycodone Oxymorphone Not Detected Cutoff: 25 ng/mL 05/10/2020 10:[address] [facility] TOBACCO CLASSER LABORATORIES Comment: Numorphan, Opana; Also a metabolite of o xycodone. Kuagnbbgreu-9-ixdn-glucuronide Not Detected Cutoff: 2020 [facility] 100 ng/mL 10:23 AM TOBACCO CLASSER LABORATORIES Comment: Metabolite of oxymorphone and/or naloxon e (nornaloxone) Noroxymorphone Not Detected Cutoff: 25 05/10/2020 10:23 [facility] ng/mL AM TOBACCO CLASSER LABORATORIES Comment: Metabolite of oxymorphone and/or naloxon e (nornaloxone) Fentanyl Not Detected Cutoff: 2 ng/mL 05/10/2020 10:23 AM [facility] TOBACCO CLASSER LABORATORIES Comment: Actiq, Duragesic, Fentora Norfentanyl Not Detected Cutoff: 2 ng/mL 05/10/2020 10:[address] [facility] TO[facility]ACCO CLASS[facility]IES Comment: Metabolite of fentanyl Meperidine Not Detected Cutoff: 25 ng/mL 05/10/2020 10:[address] [facility]CO [facility] Comment: Demerol Normeperidine Not Detected Cutoff: 25 ng/mL 05/10/2020 10:23 [facility] TO[facility]ACCO CLASS[facility] Comment: Metabolite of meperidine Naloxone Not Detected Cutoff: 25 ng/mL 05/10/2020 10:[address] [facility] TO[facility]ACCO CLASS[facility] LAB[facility]IES Comment: Narcan Aciiuwjq-7-ehan-glucuronide Not Detected Cutoff: [address] [facility] ng/mL 10:23 AM TOBACCO CLASSER LAB[facility]IES Comment: Metabolite of naloxone Methadone Not Detected Cutoff: 25 ng/mL 05/10/2020 10:[address] [facility]CO [facility] Comment: Dolophine EDDP Not Detected Cutoff: 25 ng/mL 05/10/2020 10:[address] [facility]CO [facility] Comment: Metabolite of methadone Propoxyphene Not Detected Cutoff: 25 ng/mL 05/10/2020 10:[address] [facility] TO[facility]ACCO [facility] Comment: Darvon, Darvocet Norpropoxyphene Not Detected Cutoff: 25 05/10/2020 10:23 [facility] ng/mL AM TOBACCO CLASSER LAB[facility] Comment: Metabolite of propoxyphene Tramadol Not Detected Cutoff: 25 ng/mL 05/10/2020 10:23 AM [facility] Comment: Tradol, Ultram, Ultracet O-desmethyltramadol Not Detected Cutoff: 25 05/10/2020 10:23 [facility] ng/mL AM TOBACCO CLASSER LABORATORIES Comment: Metabolite of tramadol Tapentadol Not Detected Cutoff: 25 ng/mL 05/10/2020 10:23 AM [facility] Comment: Nucynta N-desmethyltapentadol Not Detected Cutoff: 50 05/10/2020 10: 23 [facility] ng/mL AM TOBACCO CLASSER LABORATORIES Comment: Metabolite of tapentadol Mhfrpuuabl-qgkt-dzuuppxndxe Not Detected Cutoff: [address] [facility] ng/mL 10:23 AM TOBACCO CLASSER LABOR[facility]IES Comment: Metabolite of tapentadol Buprenorphine Present (A) Cutoff: 5 ng/mL 05/10/2020 10:23 A M [facility] Comment: Buprenex, Suboxone Norbuprenorphine Present (A) Cutoff: 5 ng/mL 05/10/2020 10:2 3 [facility] Comment: Metabolite of buprenorphine Norbuprenorphine Present (A) Cutoff: 20 05/10/2020 10:23 [facility] glucuronide ng/mL AM TOBACCO CLASSER LAB[facility]IES Comment: Metabolite of buprenorphine Opioid Interpretation - 05/10/2020 10:23 A M [facility] Comment: Test detected the presence of buprenorph ine and its metabolites (norbuprenorphine, norbupren orphine glucuronide). Suspect use of buprenorphi ne within the past three days. ADDITIONAL INFORMATIO N This test was developed and its performa nce characteristics determined by [facility] in a manner co nsistent with CLIA requirements. This test has not been madeleine ared or approved by the U.S. Food and Drug Administration. Creatinine, Urine 152.8 mg/dL 05/10/2020 10:23 [facility] Specific [place], 1.018 05/10/2020 10:23 [facility] Urine AM [facility] pH, Urine 6.7 05/10/2020 10:23 [facility] TOBACCO [facility]ER LAB[facility]IES Oxidants Negative Cutoff: 200 05/10/2020 10:23 [facility] mg/L AM TOBACCO CLASSER LAB[facility] Comment Normal 05/10/2020 10:23 [facility] AM TOBACCO [facility]ER LAB[facility]IES Alprazolam Not Detected Cutoff: 10 05/10/2020 10:23 [facility] ng/mL AM TOBACCO CLASSER LAB[facility] Comment: Xanax Alpha-Hydroxyalprazolam UR Not Detected Cutoff: 10 [facility] ng/mL 10:23 AM TOBACCO [facility] Comment: Metabolite of Alprazolam Alpha-Hydroxyalprazolam Not Detected Cutoff: 50 05/10/2020 [facility] Glucuron[facility] ng/mL 10:23 AM TO[facility]ACCO [facility] Comment: Metabolite of Alprazolam Chlordiazepoxide Not Detected Cutoff: 10 05/10/2020 10:23 [facility] ng/mL AM [facility] Comment: Librium Clobazam Not Detected Cutoff: 10 ng/mL 05/10/2020 10:[address] [facility] TO[facility]ACCO CLASS[facility] LAB[facility] Comment: Frisium, Onfi N-Desmethylclobazam Not Detected Cutoff: 200 05/10/2020 10:2 3 [facility] ng/mL AM TO[facility]ACCO CLASS[facility] Comment: Metabolite of Clobazam Clonazepam Lvl Not Detected Cutoff: 10 05/10/2020 10:23 [facility] ng/mL AM TO[facility]CO [facility] Comment: Klonopin, Rivotril 7-Aminoclonazepam Not Detected Cutoff: 10 05/10/2020 10:23 [facility] ng/mL AM [facility]CO [facility] Comment: Metabolite of Clonazepam Diazepam UR Not Detected Cutoff: 10 05/10/2020 10:23 [facility] Quant ng/mL AM TOBACCO CLASSER LAB[facility] Comment: Valium Nordiazepam Not Detected Cutoff: 10 ng/mL 05/10/2020 10:[address] [facility]CO [facility] Comment: Metabolite of Chlordiazepoxide, Diazepam , or Prazepam. Flunitrazepam Not Detected Cutoff: 10 ng/mL 05/10/2020 10:23 [facility] AM [facility]ACCO [facility] Comment: Rohypnol 7-Aminoflunitrazepam Not Detected Cutoff: 10 05/10/2020 10:2 3 [facility] ng/mL AM [facility] Comment: Metabolite of Flunitrazepam Flurazepam Not Detected Cutoff: 10 ng/mL 05/10/2020 10:[address] [facility] Comment: Dalmane 2- hydroxy ethyl Not Detected Cutoff: 10 05/10/2020 10:23 [facility] flurazepam ng/mL AM TOBACCO [facility] Comment: Metabolite of Flurazepam Lorazepam Not Detected Cutoff: 10 ng/mL 05/10/2020 10:[address] [facility] Comment: Ativan Lorazepam Not Detected Cutoff: 50 05/10/2020 10:23 [facility] Glucuronide ng/mL AM [facility]CO [facility] Comment: Metabolite of Lorazepam Midazolam Not Detected Cutoff: 10 ng/mL 05/10/2020 10:[address] [facility] Comment: Versed Alpha-Hydroxy Not Detected Cutoff: 10 05/10/2020 10:23 [facility] Midazolam ng/mL AM [facility] Comment: Metabolite of Midazolam Oxazepam Not Detected Cutoff: 10 ng/mL 05/10/2020 10:[address] [facility] Comment: Serax; Also a metabolite of Chlordiazepo xide, Diazepam, or Temazepam. Oxazepam Not Detected Cutoff: 50 05/10/2020 10:23 [facility] Glucuronide ng/mL AM [facility]CO [facility] Comment: Metabolite of Oxazepam Prazepam, urine Not Detected Cutoff: 10 05/10/2020 10:23 [facility] ng/mL AM [facility] Comment: Centrax Temazepam Not Detected Cutoff: 10 ng/mL 05/10/2020 10:23 AM [facility] Comment: Restoril; Also a metabolite of Diazepam. Temazepam Not Detected Cutoff: 50 05/10/2020 10:23 [facility] Glucuronide ng/mL AM [facility] Comment: Metabolite of Temazepam Triazolam Not Detected Cutoff: 10 ng/mL 05/10/2020 10:[address] [facility] Comment: Halcion Alpha-Hydroxy Not Detected Cutoff: 10 05/10/2020 10:23 [facility] Triazolam ng/mL AM [facility] Comment: Metabolite of Triazolam Zolpidem Not Detected Cutoff: 10 ng/mL 05/10/2020 10:23 AM [facility] Comment: Ambien Zolpidem Not Detected Cutoff: 10 05/10/2020 [facility] Jkecmd-0-Upwyixrnqv acid ng/mL 10:23 AM TOBACCO CLASSER [facility] Comment: Metabolite of Zolpidem Benzodiazepine, Interp - 05/10/2020 10:23 AM TOBACCO CLASSER [facility] Comment: No benzodiazepines were detected. The ab sence of expected drug(s) and/or drug metabolite(s) may in dicate non-compliance, altered pharmacokinetics , inappropriate timing of specimen collection relative t o drug administration, diluted/adulterated urin e, or limitations of testing. ADDITIONAL INFORMATIO N This test was developed and its performa nce characteristics determined by [facility] in a manner co nsistent with CLIA requirements. This test has not been madeleine ared or approved by the U.S. Food and Drug Administration. Test Performed by: [place] [id number] Asbestos Siding Mechanic: Benigno Selby M.D. Ph. D.; CLIA# [id number] List patient's Not provided 05/10/2020 10:23 AM [facility] medicaton [facility] Comment: ADDITIONAL INFORMATIO N Accuracy and completeness of declared me dications on reports solely dependent on information submitted by client. Specimen Anatomical Collection Method Collection Time Receive d Time (Source) Location / / Volume Laterality Urine 05/08/2020 9:31 AM TOBACCO CLASSER 12:51 PM TOBACCO CLASSER Melissa Coronado DNP, PLASTERER ROUGH, OVERLOCK OPERATOR LAB URINE ORDERABLES Performing Organization Address City/State/ZIP Code Phon e Number [facility] see result attachment for specific address Hepatitis C virus, RIBA (05/08/2020 9:31 AM TOBACCO CLASSER) [facility] Method Time Signature HCV Ab Indeterminate Negative 05/14/2020 [facility] 3:30 PM [facility] , S Comment: Bands detected: NS3-1. Band pattern present did not meet criter ia for positive test result. Repeat confirmatory serolog ic testing in 1 to 2 months or HCV RNA testing (HCVQN) is r ecommended for at-risk patients. ADDITIONAL INFORMATIO N This test was developed and its performa nce characteristics determined by [facility] in a manner co nsistent with CLIA requirements. This test has not been madeleine ared or approved by the U.S. Food and Drug Administration. Test Performed by: [facility] [address] [place] [id number] Asbestos Siding Mechanic: Benigno Selby M.D. Ph. D.; CLIA# [id number] Specimen Anatomical Collection Method Collection Time Receive d Time (Source) Location / / Volume Laterality Blood (Blood, 05/08/2020 9:31 AM 05/08/19 21 Venous) TOBACCO CLASSER 12:51 PM TOBACCO CLASSER Monica Delgado MD LAB BLOOD ORDERABLES Performing Organization Address City/State/ZIP Code Phon e Number [facility] see result attachment for specific address documented in this encounter Visit Diagnoses Diagnosis History of hepatitis C virus infection Opioid use disorder, moderate, in early remission, on maintenance therapy (HCC) documented in this encounter Care Teams Apprentice Embalmer Relationship Specialty Start Date End Date None, Pcp PCP - General Forensic Science Examiner 02/06/19 [address] [place] [phone] documented as of this encounter
--- OUTSIDE RECORDS SUMMARY | 2022-01-14 01:46 | XMS_ITS | Encounter Summary ---
:[address] [facility] Address [address] [place] [address] Care Team Providers Name Role Phone None, Pcp Primary Care Provider Unavailable Encounter Details Date Type Department Care Team Description 05/14/2020 [facility] Combined drug dependence, co ntinuous abuse (HCC); [address] [facility] History of hepatitis C virus infection [place], [place] [id number] Social History Tobacco Use Types Packs/Day Years [...] 03/21/2020 relatives? How often do you attend jainism or jainism Not asked 03/21/2020 services? Do you belong to any clubs or organizations such as Argelia schilling 03/21/2020 jainism groups, unions, fraternal or athletic groups, or [...] documented as of this encounter Progress Notes Molly Shea MD - 05/14/2020 11:00 AM CST Let Anjali know the hep C test was negative as we thought it would be. GER SAFE documented in this encounter Plan of Treatment Not on filedocumented as of this encounter Goals Goal Patient Goal Associated Recent Patient-Stated? Author Type Problems Progress secure housing General Yes Melissa Coronado, DNP, WIRELINE OPERATOR, SHOE SPRAYER Note: Formatting of this note might be d ifferent from the original. - has applied for several housing lists; waiting to hear back, wants to be near family documented as of this encounter Procedures Procedure Name Priority Date/Time Associated Comments Diagnosis BUPRENORPHINE Routine 05/14/2020 10:58 Combined drug Results f or this CONFIRMATION AM MANAGER SAFE dependence, procedure are i n continuous abuse the results (HCC) section. RAPID DRUG SCREEN, Routine 05/14/2020 10:58 Combined drug Resu lts for this URINE AM MANAGER SAFE dependence, procedure are i n continuous abuse the results (HCC) section. HCV RNA DETECT/QUANT, Routine 05/14/2020 10:57 Re sults for this S AM MANAGER SAFE procedure are i n the results section. documented in this encounter Results Buprenorphine conf. (05/14/2020 10:58 AM MANAGER SAFE) [facility] Method Time Signature Buprenorphine see below 05/21/2020 [facility] 9:48 PM [facility] LAB[facility]ATORIES Comment: See scanned [facility] Report. Specimen Anatomical Collection Method Collection Time Receive d Time (Source) Location / / Volume Laterality 05/14/2020 10:58 05/14/2020 AM MANAGER SAFE 11:30 AM MANAGER SAFE Molly Shea MD LAB URINE ORDERABLES Performing Organization Address City/State/ZIP Code Phon e Number [facility] [address] [place] [address] (ABNORMAL) Rapid drug screen, urine (05/14/2020 10:58 AM MANAGER SAFE) athologist Signature Rapid Urine ----- 05/14/2020 [facility] Drug Screen 10:58 AM [facility] Comment: This is a screening test. ??Positive res ults should be considered presumptive and are sent to [facility] for confirmation. This test is not for legal purposes - on medical. Tetrahydrocannabinol NOT DETECTED Not Detected 05/14/2020 12:11 [facility] Phencyclidine, Mec NOT DETECTED Not Detected 05/14/2020 12:1 1 [facility] Cocaine NOT DETECTED Not Detected 05/14/2020 12:11 [facility] Methamphetamine NOT DETECTED Not Detected 05/14/2020 12:11 [facility] Opiates NOT DETECTED Not Detected 05/14/2020 12:11 [facility] Amphetamines NOT DETECTED Not Detected 05/14/2020 12:11 [facility] Benzodiazepines NOT DETECTED Not Detected 05/14/2020 12:11 [facility] TCA, Urine NOT DETECTED Not Detected 05/14/2020 12:11 [facility] Methadone NOT DETECTED Not Detected 05/14/2020 12:11 [facility] Barbiturates NOT DETECTED Not Detected 05/14/2020 12:11 [facility] Oxycodone NOT DETECTED Not Detected 05/14/2020 12:11 [facility] Propoxyphene NOT DETECTED Not Detected 05/14/2020 12:11 [facility] Buprenorphine DETECTED (A) Not Detected 05/14/2020 12:11 [facility] Comment: Sent to [facility] for GC/MS confirmation. Detectable Levels ----- 05/14/2020 10:58 AM T [facility] Comment: Amphetamines ?500 ng/ mL Barbiturates [...] (Urine, 05/14/2020 10:58 05/14/2020 [facility]) AM MANAGER SAFE 11:30 AM MANAGER SAFE Molly Shea MD LAB URINE ORDERABLES Performing Organization Address City/State/ZIP Code Phon e Number [facility] [address] [place] [address] HCV RNA detect/quant, serum (05/14/2020 10:57 AM MANAGER SAFE) [facility] Method Time Signature HCV RNA Undetected Undetected 05/16/2020 [facility] Detect/Quant IU/mL 12:03 AM LABORATORIES , S MANAGER SAFE Comment: Result in log IU/mL is Undetected. ADDITIONAL INFORMATIO N The quantification range of this assay i s 15 to 100,000,000 IU/mL (1.18 log to 8.00 log IU/mL). Test ing was performed using the seth HCV test ([employer], [employer] [employer] with the seth 6800 System. Test [facility]: [facility] [address] [place], [place] [address] Retail Service Specialist: Benigno Selby M.D. Ph. D.; CLIA# [id number] Specimen Anatomical Collection Method Collection Time Receive d Time (Source) Location / / Volume Laterality 05/14/2020 10:57 05/14/2020 2:13 AM MANAGER SAFE PM MANAGER SAFE Molly Shea MD LAB BLOOD ORDERABLES Performing Organization Address City/State/ZIP Code Phon e Number [facility] see result attachment for specific address documented in this encounter Visit Diagnoses Diagnosis Combined drug dependence, continuous abu se (HCC) History of hepatitis C virus infection documented in this encounter Care Teams Sander Machine Relationship Specialty Start Date End Date None, Pcp PCP - General Bean Picker 02/06/19 [address] [place] [phone] documented as of this encounter
--- OUTSIDE RECORDS SUMMARY | 2022-01-14 01:46 | XMS_ITS | Encounter Summary ---
:1990 Author Organization [facility] Address [address] [place] [address] Care Team Providers Name Role Phone None, Pcp Primary Care Provider Unavailable Encounter Details Date Type Department Care Team Description 05/14/2020 Hospital Encounter [facility] [address] [place] [address] Social History Tobacco Use Types Packs/Day Years [...] 03/21/2020 relatives? How often do you attend quaker or mosque Not asked 03/21/2020 services? Do you belong to any clubs or organizations such as Not chinmay schilling 03/21/2020 quaker groups, unions, fraternal or athletic groups, or [...] (six) hours if needed for mild pain Prenat w/o Take 1 capsule by 30 capsule 3 05/14/2020 021 A-NnGsh-Nqms-FA-DHA mouth 1 (one) time ([facility] DHA) each day for 60 31-0.6-0.4-200 MG doses capsuleIndications: Supervision of high risk , antepartum albuterol HFA (Ventolin Inhale 2 puffs every 18 g 1 05/06/2021 HFA) 108 (90 Base) 4 (four) hours if MCG/ACT needed for wheezing inhalerIndications: Mild or shortness of intermittent asthma breath without complication buprenorphine (SUBUTEX) Take one tablet in 30 tablet 0 04/1205/22/2020 2 MGIndications: Opioid the morning (with 8 use disorder, moderate, mg tablet) and one in early remission, on tablet in the maintenance therapy evening (with 8 mg (HCC) tablet). Total daily dose 20 mg. buprenorphine (SUBUTEX) Take 1 tablet in the 30 tablet 0 05/22/2020 8 MGIndications: Opioid am (with 2 mg use disorder, moderate, tablet) and 1 tablet in early remission, on in the pm (with 2 mg maintenance therapy tablet). Total daily (HCC) dose 20 mg. doxylamine (UNISON) 25 Take 1 tablet (25 mg 30 tablet 1 06/202006/11/2020 MG tabletIndications: total) by mouth at Supervision of high risk night if needed for , antepartum sleep Take 1 tablet at bedtime as needed for nausea. nicotine polacrilex Chew 1 each (4 mg 100 each 0 08/29/2020 (Nicorette) 4 MG total) if needed for gumIndications: Opioid smoking cessation use disorder, moderate, in early remission, on maintenance therapy ([facility]) MV-Min-Fe Take 1 tablet by 90 capsule 3 04/22/2020 10/27/2020 Fum-FA-DHA ( 1) mouth 1 (one) time 30-0.975-200 MG each day capsuleIndications: test positive Vit-Fe Take by mouth 0 2020 Fumarate-FA ( MULTIVITAMINS PO) pyridoxine (B-6) 50 MG Take 50 mg by mouth 0 02/0910/27/2020 tablet 2 times daily pyridoxine (VITAMIN B-6) Take 1 tablet (25 mg 90 tablet 1 0 05/08/2020 05/22/2020 25 MG tabletIndications: total) by mouth Supervision of high risk every 8 (eight) , antepartum, hours Nausea and vomiting in prior to 22 weeks gestation documented as of this encounter Plan of Treatment Not on filedocumented as of this encounter Goals Goal Patient Goal Associated Recent Patient-Stated? Author Type Problems Progress secure housing General Yes Melissa Coronado, DNP, TURNING MACHINE OPERATOR, NURSES' ASSOCIATION EXECUTIVE DIRECTOR Note: Formatting of this note might be d ifferent from the original. - has applied for several housing lists; waiting to hear back, wants to be near family documented as of this encounter Procedures Procedure Name Priority Date/Time Associated Diagnosis Comme nts US OB DETAIL Routine 05/14/2020 10:36 AM Combined drug R esults for this ANATOMY SINGLE OR HVAC DESIGNER dependence, procedure are in FIRST GESTATION continuous abuse the resu lts ([facility]) section. documented in this encounter Results OB US, detailed anatomy (05/14/2020 10:36 AM HVAC DESIGNER) Anatomical Region Laterality Modality Body Ultrasound Specimen (Source) Anatomical Collection Method Collection Time Re ceived Time Location / / Volume Laterality 05/14/2020 10:36 AM HVAC DESIGNER Impressions 05/23/2020 1:55 PM HVAC DESIGNER IMPRESSION: Single viable intrauterine at 19 weeks and 4 days with best HAZEL October 04, 2020.. ??No apparent abnormalit ies on comprehensive anatomic survey though inadequate views of aortic arch and ductal arch. ??Size equals dates. ??292 g. ??37th percentile . ??Amniotic fluid is normal. ?? Placenta is low lying posterior.. FINDINGS: Best HAZEL: 10/04/2020 Gestational age: 19w4d BIOMETRY FETUS 1 Position: Cephalic EFW: 292 grams ? EFW percentile by b est HAZEL: ??37 Amniotic fluid: Normal Heart Rate: 142 bpm BPD: 4.70 cm ?? 20w2d ?? 76 percent HC: 17.50 cm ?? 20w1d ?? 64 percent AC: 14.70 cm ?? 20w0d ?? 59 Percent FL: 2.80 cm ?? 18w4d ?? 12 Percent Cerebellum: 2.00 cm Cisterna Magna: 4.00 mm Nuchal Fold: 4.00 mm Lateral ventricle: 0.6 cm IOD: 1.12 cm OOD: 3.07 cm ??19w6d Humerus: 2.80 cm ?? 19w0d ?? 35 Radius: 2.23 cm ?? , Ulna: 2.6 7 19w3d ?? 29 Percent Tibia: 2.40 cm ?24 Percent Fibula: 2.50 cm Overall composite biometry: 19w6d The following structures were seen and w ere within normal limits: Cerebellum, choroid plexus, lateral vent ricle, falx, profile, cisterna magna, nuchal fold, upper lip, CSP, orbi ts/lens, 4 chamber heart, apex left, RVOT, LVOT, 3VV, 3VTV, stomach, ki dneys, bladder, umbilical cord insertion, 3 vessel cord, diaphragm, dominique al arteries, cervical spine, thoracic spine, lumbar spine, sacrum, le gs, arms, hands, feet, cervix, left adnexa, and right adnexa. ??Inadequ ate views of aortic arch and ductal arch. ??Placenta is low lying posterior. Gender: Male Narrative 05/23/2020 1:55 PM HVAC DESIGNER INDICATION: Drug dependence EXAM DESCRIPTION: US OB ANATOMY COMPLETE TECHNIQUE: IMAGING: Transabdominal QUALITY: Satisfactory ADMINISTRATIVE RESIDENT: Sandy Procedure Note Molly Shea MD - 05/23/2020Formattin g of this note might be different from the original. INDICATION: Drug dependence EXAM DESCRIPTION: US OB ANATOMY COMPLETE TECHNIQUE: IMAGING: Transabdominal QUALITY: Satisfactory ADMINISTRATIVE RESIDENT: Sandy IMPRESSION: Single viable intrauterine at 19 weeks and 4 days with best HAZEL October 04, 2020.. No apparent abnormalitie s on comprehensive anatomic survey though inadequate views of aortic arch and ductal arch. Size equals dates. 292 g. 37th percentile. Am niotic fluid is normal. Placenta is low lying posterior.. FINDINGS: Best HAZEL: 10/04/2020 Gestational age: 19w4d BIOMETRY FETUS 1 Position: Cephalic EFW: 292 grams EFW percentile by best ED D: 37 Amniotic fluid: Normal Heart Rate: 142 bpm BPD: 4.70 cm 20w2d 76 percent HC: 17.50 cm 20w1d 64 percent AC: 14.70 cm 20w0d 59 Percent FL: 2.80 cm 18w4d 12 Percent Cerebellum: 2.00 cm Cisterna Magna: 4.00 mm Nuchal Fold: 4.00 mm Lateral ventricle: 0.6 cm IOD: 1.12 cm OOD: 3.07 cm 19w6d Humerus: 2.80 cm 19w0d 35 Radius: 2.23 cm , Ulna: 2.6 7 19w3d 29 Percent Tibia: 2.40 cm 24 Percent Fibula: 2.50 cm Overall composite biometry: 19w6d The following structures were seen and w ere within normal limits: Cerebellum, choroid plexus, lateral vent ricle, falx, profile, cisterna magna, nuchal fold, upper lip, CSP, orbi ts/lens, 4 chamber heart, apex left, RVOT, LVOT, 3VV, 3VTV, stomach, ki dneys, bladder, umbilical cord insertion, 3 vessel cord, diaphragm, dominique al arteries, cervical spine, thoracic spine, lumbar spine, sacrum, le gs, arms, hands, feet, cervix, left adnexa, and right adnexa. Inadequat e views of aortic arch and ductal arch. Placenta is low lying posterior. Gender: Male Molly Shea MD IMG OB US PROCEDURES documented in this encounter Visit Diagnoses Not on filedocumented in this encounter Care Teams Student Officer Relationship Specialty Start Date End Date None, Pcp PCP - General Corporate Giving Manager 02/06/[address] [place] [phone] documented as of this encounter
--- OUTSIDE RECORDS SUMMARY | 2022-01-14 01:47 | XMS_ITS | Encounter Summary ---
:1990 Author Organization [facility] Address [address] [place] [address] Care Team Providers Name Role Phone None, Pcp Primary Care Provider Unavailable Reason for Referral Consultation (Routine) - Closed Specialty Diagnoses / Procedures Referred By Contact Refer red To Contact Sports Medicine Diagnoses Chronic pain of left knee Boby Byrne MD [facility] Sports Medicine [address] [facility] [address] [place], [place] [phone] Referral ID Status Reason Start Date Expiration Date Visits V isits Requested Authorized [id number] Closed Specialty 04/10/2020 10/07/2020 1 1 Services Required ORARY ADMINISTRATIVE ASSISTANT Reason for Visit Reason Comments Knee Pain Encounter Details Date Type Department Care Team Description 04/10/2020 Office Visit [facility] Boby Byrne MD Chronic pain of left knee (Primary Dx); [address] [facility] [address] [facility] Chemical dependency (HCC) [place] [address] [facility] [phone] [place] [address] Social History Tobacco Use Types [...] How often do you attend rastafarian or bahai Not asked 03/21/2020 services? Do you belong [...] with No / Unsure 04/01/2020 8:38 PM TEMPORARY ADMINISTRATIVE ASSISTANT someone who was confirmed or suspected to have Coronavirus / COVID-19? documented as of this encounter Last Filed Vital Signs Vital Sign Reading Time Taken Comments Blood Pressure 115/71 04/10/2020 3:24 PM TEMPORARY ADMINISTRATIVE ASSISTANT Pulse 92 04/10/2020 3:24 PM TEMPORARY ADMINISTRATIVE ASSISTANT Temperature 36.8 ??C (98.3 ??F) 04/10/2020 3:24 PM TEMPORARY ADMINISTRATIVE ASSISTANT Respiratory Rate 16 04/10/2020 3:24 PM TEMPORARY ADMINISTRATIVE ASSISTANT Oxygen Saturation 100% 04/10/2020 3:24 PM TEMPORARY ADMINISTRATIVE ASSISTANT Inhaled Oxygen Concentration - - Weight 79.6 kg (175 lb 7.8 oz) 04/10/2020 3:24 PM TEMPORARY ADMINISTRATIVE ASSISTANT Height 164 cm (5' 4.57) 04/10/2020 3:24 PM TEMPORARY ADMINISTRATIVE ASSISTANT Body Mass Index 29.6 04/10/2020 3:24 PM TEMPORARY ADMINISTRATIVE ASSISTANT documented in this encounter Patient Instructions Patient InstructionsBoby Byrne MD - 04/10/2020 3:30 PM CST Okay to wear knee brace. ORARY ADMINISTRATIVE ASSISTANT documented in this encounter Progress Notes Boby Byrne MD - 04/10/2020 3:30 PM CST Estab Patient Visit Subjective Patient ID: Anjali Hoang is a 30 y.o. female. Chief Complaint Patient presents with ??? Knee Pain History of Present Illness HPI Resident [place] [facility] [place]. Patient has been having problems left knee pain. Injured this summer. Sometimes feels like there is something that gets caught in the knee. Possible meniscal injury. The patient is . Patient at least hoping to get some type of knee brace. Review of Systems Review of Systems Per the history of present illness. The patient denied any other active medical problems or concerns. Allergies Sulfa antibiotics Medications Current Outpatient Medications: ??? acetaminophen (TYLENOL) 500 MG tablet, Take 1,000 mg by mouth every 6 (six) hours if needed for mild pain, Disp: , Rfl: ??? albuterol HFA (Ventolin HFA) 108 (90 Base) MCG/ACT inhaler, Inhale 2 puffs every 4 (four) hours if needed for wheezing or shortness of breath, Disp: 18 g, Rfl: 1 ??? bisacodyl (DULCOLAX) 10 MG suppository, Insert 1 suppository (10 mg total) into the rectum 1 (one) time if needed for constipation for up to 28 days, Disp: 28 suppository, Rfl: 0 ??? buprenorphine (SUBUTEX) 8 MG, Place under the tongue 1 (one) time each day 8 mg in am and 4 mg in pm to start, Disp: , Rfl: ??? doxylamine (UNISON) 25 MG tablet, Take 25 mg by mouth at night if needed Take 2 tablets by mouthat bedtime as needed., Disp: , Rfl: ??? doxylamine (UNISON) 25 MG tablet, Take 25 mg by mouth Take 1 tablet at bedtime as needed for nausea., Disp: , Rfl: ??? Vit-Fe Fumarate-FA (KP MULTIVITAMINS PO), Take by mouth, Disp: , Rfl: ??? Vit-Fe Fumarate-FA (PNV Plus Multivitamin) 27-1 MG tablet, Take 1 tablet by mouth daily, Disp: , Rfl: ??? pyridoxine (VITAMIN B-6) 100 MG tablet, Take 1 tablet (100 mg total) by mouth 1 (one) time each day, Disp: 30 tablet, Rfl: 1 The following portions of the patient's chart were reviewed in this encounter and updated as appropriate: Tobacco Allergies Meds Problems Med Hx Surg Hx Fam Hx Objective Physical Exam Vital signs are as per the chart Physical examination in general patient pleasant no apparent distress Extremities some mild left knee swelling Assessment/Plan Diagnoses and all orders for this visit: Chronic pain of left knee - Ambulatory referral to Sports Medicine Chemical dependency (HCC) Patient given a knee brace. I have requested sports medicine consultation. Holding x-rays due to patient being . ORARY ADMINISTRATIVE ASSISTANT documented in this encounter Plan of Treatment Scheduled Referrals Name Type Priority Associated Order Schedule Diagnoses Ambulatory referral Outpatient Referral Routine Chronic pain o f Ordered: to Sports Medicine left knee 0 documented as of this encounter Visit Diagnoses Diagnosis Chronic pain of left knee - Primary Chemical dependency (HCC) Unspecified drug dependence, unspecified abuse documented in this encounter Care Teams On Site Wastewater Systems Technician Relationship Specialty Start Date End Date None, Pcp PCP - General System Support Technician 02/06/[address] [place] [phone] documented as of this encounter
--- OUTSIDE RECORDS SUMMARY | 2022-01-14 01:47 | XMS_ITS | Encounter Summary ---
:[address] [facility] Address [address] [place] [id number] Care Team Providers Name Role Phone None, Pcp Primary Care Provider Unavailable Encounter Details Date Type Department Care Team Description 04/22/2020 Orders Only [facility] Zainab Rm test [facility] MD Vincent positive ( Primary Dx) Compensation Business Partner [address] [place] [id number] Social History Tobacco Use Types Packs/Day [...] How often do you attend orthodoxy or hoahaoism Not asked 03/21/2020 services? Do you belong to any clubs or organizations such as Not chinmay schilling 03/21/2020 orthodoxy groups, unions, fraternal or [...] with No / Unsure 04/01/2020 8:38 PM REPAIRER PUMP someone who was confirmed or suspected to have Coronavirus / COVID-19? documented as of this encounter Progress Notes Zainab Rm MD - 04/22/2020 11:51 AM CST vitamins sent to pharmacy Zainab Rm MD 04/22/20 IRER PUMP documented in this encounter Plan of Treatment Not on filedocumented as of this encounter Goals Goal Patient Goal Associated Recent Patient-Stated? Author Type Problems Progress secure housing General Yes Melissa Coronado, DNP, CYTOGENETIC TECHNOLOGIST, INPATIENT NURSING AIDE Note: Formatting of this note might be d ifferent from the original. - has applied for several housing lists; waiting to hear back, wants to be near family documented as of this encounter Visit Diagnoses Diagnosis test positive - Primary examination or test, positive result documented in this encounter Care Teams Java Development Manager Relationship Specialty Start Date End Date None, Pcp PCP - General Visual Arts Teacher 02/06/19 [address] [place] [phone] documented as of this encounter
--- OUTSIDE RECORDS SUMMARY | 2022-01-14 01:47 | XMS_ITS | Encounter Summary ---
:1990 Author Organization [facility] Address [address] [place] [address] Care Team Providers Name Role Phone None, Pcp Primary Care Provider Unavailable Reason for Visit Reason Comments MAT Clinic Follow Up Encounter Details Date Type Department Care Team Description 04/24/2020 Office Visit SE MEDICATION Ivonne, Melissa Opioid use disorder, ASSISTED TREATMENT K., DNP, HYDRAULIC SPECIALIST, BELT REPAIRER moderate, in early [address], [place] [address] [place] maintenance therapy [phone] (HCC) (Primary Dx) Social History Tobacco [...] 03/21/2020 relatives? How often do you attend yarsani or tenriism Not asked 03/21/2020 services? Do you belong to any clubs or organizations such as Argelia schilling 03/21/2020 yarsani groups, unions, fraternal or athletic groups, or [...] with No / Unsure 04/01/2020 8:38 PM LOAD BUILDER someone who was confirmed or suspected to have Coronavirus / COVID-19? documented as of this encounter Last Filed Vital Signs Vital Sign Reading Time Taken Comments Blood Pressure 115/65 04/24/2020 10:28 AM LOAD BUILDER Pulse 94 04/24/2020 10:28 AM LOAD BUILDER Temperature 36.8 ??C (98.3 ??F) 04/24/2020 10:28 AM LOAD BUILDER Respiratory Rate - - Oxygen Saturation 99% 04/24/2020 10:28 AM LOAD BUILDER Inhaled Oxygen Concentration - - Weight - - Height - - Body Mass Index - - documented in this encounter Patient Instructions Patient InstructionsMelissa Coronado DNP, APRN, MIK - 04/24/2020 10:30 AM LOAD BUILDER Continue Subutex 8 mg and 2 mg twice daily. Follow up with Melissa on , 05/01/2020, with lab prior. BUILDER documented in this encounter Progress Notes Melissa Coronado DNP, APRN, MIK - 04/24/2020 10:30 AM CST MAT Clinic Follow Up Note Discussion Date: 04/24/2020 10:50 AM CHIEF COMPLAINT: Anjali presents for MAT Clinic follow up visit for management of opioid use disorder. Last visit: 04/17/2020, 16 gm daily She has been taking Suboxone as prescribed: Yes Current total daily dose is 16 mg Suboxone film/tab count is within range: Yes Stores Suboxone securely: Yes, stored at [place] [id number] Used any mood altering drugs since last visit: No Cravings for narcotics: No Suboxone side effects: No Urine Toxicology: awaiting results Ms. Anjali Hoang is a 30-year-old female who presents to the MAT clinic for Subutex follow-up. She is currently 16 weeks, 5 days ; last OB appointment was yesterday, no concerns noted other than weight gain little more than normal. Patient has been taking 8 mg Subutex twice daily, however, she reports experiencing increasing cravings and withdrawal symptoms in the mornings before her first dose including sweating, hot flashes, anxiety. Patient request increased dose to 10 mg twice a day. Given rapid expansion and blood volume, increasing dose is quite often necessary. She also plans todismiss from [facility] tomorrow and transition to a women's sober house with recovery is happening. At the sober house she will have her own car, be free to come and go, and will be allowed visitation with her 6-year-old son who currently resides with her grandmother. Patient is aware she must continue to comply with urine drug screens at weekly follow-up visits. [facility] Pain: mild cramping Mood: Hopeful and excited to move into sober living, looking forward to spending the weekend with her son Sleep: fair Appetite: normal, no concerns Employment status changes: not working now, in residential treatment Housing: lives at [facility] [employer]; leaves tomorrow to [address] [place] [address] with [facility]. Current life stressors: Conflict with treatment staff Daily Functioning/ADLs: no concerns or changes Relationships/Social Support: friends, family Recovery Activities: in residential treatment currently ASSESSMENT AND FOLLOW UP PLAN: Opioid use disorder, moderate, in early remission, on maintenance therapy (HCC) It was a pleasure to visit with Ms. Hoang. She maintained at stable dose of 16 mg Subutex daily. Patient is currently 16 weeks , experiencing mild cramping, withdrawal symptoms in the morings before first dose. Feeling baby movements regularly. Concerns: Anger management and emotional health Last UDS results: as expected Today's Plan: Increase Subutex to 20 mg daily with follow-up in 1 week Continue with MAT Clinic Treatment Program and plan of care. Patient Instructions Continue Subutex 8 mg and 2 mg twice daily. Follow up with Melissa on , 05/01/2020, with lab prior. Patient goals: Goals ??? secure housing (pt-stated) - work on securing housing at recovery is happening - this is on hold temporarily due to Covid outbreak - would like to apply for [facility] in the future to secure permament housing for her and roman Total time spent with patient was 28 minutes, greater than 50% of which was counseling/coordination of care, which included review of symptoms, education on medications and side effects, and treatment planning. Melissa Coronado DNP, NICHOLAS, MIK BUILDER documented in this encounter Miscellaneous Notes Assessment & Plan Note - Melissa Coronado DNP, APRN, MIK - 04/24/2020 10:29 AM CSTAssociated Problem(s): Opioid use disorder, moderate, in early remission, on maintenance therapy (HCC) It was a pleasure to visit with Ms. Hoang. She maintained at stable dose of 16 mg Subutex daily. Patient is currently 16 weeks , experiencing mild cramping, withdrawal symptoms in the morings before first dose. Feeling baby movements regularly. Concerns: Anger management and emotional health Last UDS results: as expected Today's Plan: Increase Subutex to 20 mg daily with follow-up in 1 week BUILDER documented in this encounter Plan of Treatment Not on filedocumented as of this encounter Goals Goal Patient Goal Associated Recent Patient-Stated? Author Type Problems Progress secure housing General Yes Melissa Coronado DNP, NICHOLAS, BELT REPAIRER Note: Formatting of this note might be d ifferent from the original. - has applied for several housing lists; waiting to hear back, wants to be near family documented as of this encounter Results (ABNORMAL) Controlled Substance Monitoring Panel, Urine (05/01/2020 3:33 PM LOAD BUILDER) Component Value Ref Test Analysis Performed At [facility] Range Method Time Signature Amphetamines Negative Cutoff: 05/03/2020 [facility] 500 10:22 AM LABORATORIES ng/mL LOAD BUILDER Barbiturates Negative Cutoff: 05/03/2020 [facility] 200 10:22 AM LABORATORIES ng/mL LOAD BUILDER Cocaine Negative Cutoff: 05/03/2020 [facility] 150 10:22 AM LABORATORIES ng/mL LOAD BUILDER Phencyclidine, Mec Negative Cutoff: 05/03/2020 [facility] 25 ng/mL 10:22 AM LABORATORIES LOAD BUILDER Tetrahydrocannabinol Negative Cutoff: 05/03/2020 [facility] 50 ng/mL 10:22 AM LABORATORIES LOAD BUILDER Comment: ADDITIONAL INFORMATIO N This report is intended for use in clini wilfred monitoring or management of patients. ??It is not inte nded for use in employment-related testing. Codeine Not Detected Cutoff: 25 ng/mL 05/03/2020 10:22 AM [facility] Comment: Tylenol 3 Btmqldy-4-cxtt-glucuronide Not Detected Cutoff: 100 05/03/19 21 [facility] ng/mL 10:22 AM LOAD BUILDER LABORATORIES Comment: Metabolite of codeine Morphine Urine Not Detected Cutoff: 25 05/03/2020 10:22 [facility] ng/mL AM LOAD BUILDER LABORATORIES Comment: Emilia Perry, MS Contin; Also a minor metabolite (10%) of codeine and can be seen in low concentra tions (<2,000 ng/mL) with poppy seed ingestion. Jqehmkzc-6-zjyk-glucuronide Not Detected Cutoff: 100 021 [facility] ng/mL 10:22 AM LOAD BUILDER LABORATORIES Comment: Metabolite of morphine 6-monoacetylmorphine Not Detected Cutoff: 25 05/03/2020 10:2 2 [facility] ng/mL AM LOAD BUILDER LABORATORIES Comment: Metabolite of heroin Hydrocodone Not Detected Cutoff: 25 ng/mL 05/03/2020 10:22 A M [facility] Comment: Lortab, Leonard, Vicodin; Also a very phoenix r metabolite of codeine and impurity (<1%) of oxycodone. Norhydrocodone Not Detected Cutoff: 25 05/03/2020 10:22 [facility] ng/mL AM LOAD BUILDER LABORATORIES Comment: Metabolite of hydrocodone Dihydrocodeine Not Detected Cutoff: 25 05/03/2020 10:22 [facility] ng/mL AM LOAD BUILDER LABORATORIES Comment: Metabolite of hydrocodone Hydromorphone Not Detected Cutoff: 25 ng/mL 05/03/2020 10:22 [facility] AM LOAD BUILDER LABORATORIES Comment: Dilaudid, Exalgo; Also a metabolite of h ydrocodone and a minor (<5%) metabolite of morphine. Rzvgovgylxtua-4-nnqx-glucuronide Not Cutoff: 021 [facility] Detected 100 ng/mL 10:22 AM LOAD BUILDER LABORATORIES Comment: Metabolite of hydromorphone Oxycodone Not Detected Cutoff: 25 ng/mL 05/03/2020 10:22 AM [facility] LOAD BUILDER LABORATORIES Comment: Endocet, Percocet, Oxycontin Noroxycodone Not Detected Cutoff: 25 ng/mL 05/03/2020 10:22 AM [facility] LOAD BUILDER LABORATORIES Comment: Metabolite of oxycodone Oxymorphone Not Detected Cutoff: 25 ng/mL 05/03/2020 10:22 A M [facility] LOAD BUILDER LABORATORIES Comment: Numorphan, Opana; Also a metabolite of o xycodone. Nmjafabvwss-6-arhc-glucuronide Not Detected Cutoff: 2020 [facility] 100 ng/mL 10:22 AM LOAD BUILDER LABORATORIES Comment: Metabolite of oxymorphone and/or naloxon e (nornaloxone) Noroxymorphone Not Detected Cutoff: 25 05/03/2020 10:22 [facility] ng/mL AM LOAD BUILDER LABORATORIES Comment: Metabolite of oxymorphone and/or naloxon e (nornaloxone) Fentanyl Not Detected Cutoff: 2 ng/mL 05/03/2020 10:22 AM [facility] LOAD BUILDER LABORATORIES Comment: Actiq, Duragesic, Fentora Norfentanyl Not Detected Cutoff: 2 ng/mL 05/03/2020 10:22 AM [facility] LOAD BUILDER LABORATORIES Comment: Metabolite of fentanyl Meperidine Not Detected Cutoff: 25 ng/mL 05/03/2020 10:22 AM [facility] LOAD BUILDER LABORATORIES Comment: Demerol Normeperidine Not Detected Cutoff: 25 ng/mL 05/03/2020 10:22 [facility] AM LOAD BUILDER LABORATORIES Comment: Metabolite of meperidine Naloxone Not Detected Cutoff: 25 ng/mL 05/03/2020 10:22 AM [facility] LOAD BUILDER LABORATORIES Comment: Narcan Wtnfkkst-4-psgf-glucuronide Not Detected Cutoff: 100 021 [facility] ng/mL 10:22 AM LOAD BUILDER LABORATORIES Comment: Metabolite of naloxone Methadone Not Detected Cutoff: 25 ng/mL 05/03/2020 10:22 AM [facility] LOAD BUILDER LAB[facility]ATORIES Comment: Dolophine EDDP Not Detected Cutoff: 25 ng/mL 05/03/2020 10:22 AM [facility] LOAD BUILDER LABORATORIES Comment: Metabolite of methadone Propoxyphene Not Detected Cutoff: 25 ng/mL 05/03/2020 10:22 AM [facility] LOAD BUILDER LAB[facility]ATORIES Comment: Darvon, Darvocet Norpropoxyphene Not Detected Cutoff: 25 05/03/2020 10:22 [facility] ng/mL AM LOAD BUILDER LAB[facility]IES Comment: Metabolite of propoxyphene Tramadol Not Detected Cutoff: 25 ng/mL 05/03/2020 10:22 AM [facility] LOAD BUILDER LABORATORIES Comment: Tradol, Ultram, Ultracet O-desmethyltramadol Not Detected Cutoff: 25 05/03/2020 10:22 [facility] ng/mL AM LOAD BUILDER LABORATORIES Comment: Metabolite of tramadol Tapentadol Not Detected Cutoff: 25 ng/mL 05/03/2020 10:22 AM [facility] Comment: Nucynta N-desmethyltapentadol Not Detected Cutoff: 50 05/03/2020 10: 22 [facility] ng/mL AM LOAD BUILDER LABORATORIES Comment: Metabolite of tapentadol Knewipkgsi-ycbs-vswxoalxopm Not Detected Cutoff: 100 021 [facility] ng/mL 10:22 AM LOAD BUILDER LABORATORIES Comment: Metabolite of tapentadol Buprenorphine Present (A) Cutoff: 5 ng/mL 05/03/2020 10:22 A M [facility] Comment: Buprenex, Suboxone Norbuprenorphine Present (A) Cutoff: 5 ng/mL 05/03/2020 10:2 2 [facility] AM LOAD BUILDER LABORATORIES Comment: Metabolite of buprenorphine Norbuprenorphine Present (A) Cutoff: 20 05/03/2020 10:22 [facility] glucuronide ng/mL AM LOAD BUILDER LABORATORIES Comment: Metabolite of buprenorphine Opioid Interpretation - 05/03/2020 10:22 A M [facility] Comment: Test detected the presence of buprenorph ine and its metabolites (norbuprenorphine, norbupren orphine glucuronide). Suspect use of buprenorphi ne within the past three days. ADDITIONAL INFORMATIO N This test was developed and its performa nce characteristics determined by [facility] in a manner co nsistent with CLIA requirements. This test has not been madeleine ared or approved by the U.S. Food and Drug Administration. Creatinine, Urine 107.9 mg/dL 05/03/2020 10:22 [facility] LOAD BUILDER LABORATORIES Specific [place], 1.018 05/03/2020 10:22 [facility] Urine LOAD BUILDER LABORATORIES pH, Urine 5.7 05/03/2020 10:22 [facility] LOAD BUILDER LABORATORIES Oxidants Negative Cutoff: 200 05/03/2020 10:22 [facility] mg/L AM LOAD BUILDER LABORATORIES Comment Normal 05/03/2020 10:22 [facility] Alprazolam Not Detected Cutoff: 10 05/03/2020 10:22 [facility] ng/mL AM LOAD BUILDER LAB[facility]IES Comment: Xanax Alpha-Hydroxyalprazolam UR Not Detected Cutoff: 10 [facility] ng/mL 10:22 AM LOAD BUILDER LAB[facility]IES Comment: Metabolite of Alprazolam Alpha-Hydroxyalprazolam Not Detected Cutoff: 50 05/03/2020 [facility] Glucuronide ng/mL 10:22 AM LOAD BUILDER LABORATORIES Comment: Metabolite of Alprazolam Chlordiazepoxide Not Detected Cutoff: 10 05/03/2020 10:22 [facility] ng/mL AM LOAD BUILDER [facility] Comment: Librium Clobazam Not Detected Cutoff: 10 ng/mL 05/03/2020 10:22 AM [facility] LOAD BUILDER LABORATORIES Comment: Frisium, Onfi N-Desmethylclobazam Not Detected Cutoff: 200 05/03/2020 10:2 2 [facility] ng/mL AM LOAD BUILDER LAB[facility]IES Comment: Metabolite of Clobazam Clonazepam Lvl Not Detected Cutoff: 10 05/03/2020 10:22 [facility] ng/mL AM LOAD BUILDER LAB[facility]IES Comment: Klonopin, Rivotril 7-Aminoclonazepam Not Detected Cutoff: 10 05/03/2020 10:22 [facility] ng/mL AM LOAD BUILDER LAB[facility] Comment: Metabolite of Clonazepam Diazepam UR Not Detected Cutoff: 10 05/03/2020 10:22 [facility] Quant ng/mL AM LOAD BUILDER LABORATORIES Comment: Valium Nordiazepam Not Detected Cutoff: 10 ng/mL 05/03/2020 10:22 A M [facility] LOAD BUILDER LABORATORIES Comment: Metabolite of Chlordiazepoxide, Diazepam , or Prazepam. Flunitrazepam Not Detected Cutoff: 10 ng/mL 05/03/2020 10:22 [facility] AM LOAD BUILDER LABORATORIES Comment: Rohypnol 7-Aminoflunitrazepam Not Detected Cutoff: 10 05/03/2020 10:2 2 [facility] ng/mL AM LOAD BUILDER [facility] Comment: Metabolite of Flunitrazepam Flurazepam Not Detected Cutoff: 10 ng/mL 05/03/2020 10:22 AM [facility] LOAD BUILDER LABORATORIES Comment: Dalmane 2- hydroxy ethyl Not Detected Cutoff: 10 05/03/2020 10:22 [facility] flurazepam ng/mL AM LOAD BUILDER LABORATORIES Comment: Metabolite of Flurazepam Lorazepam Not Detected Cutoff: 10 ng/mL 05/03/2020 10:22 AM [facility] LOAD BUILDER LAB[facility] Comment: Ativan Lorazepam Not Detected Cutoff: 50 05/03/2020 10:22 [facility] Glucuronide ng/mL AM LOAD BUILDER LABORATORIES Comment: Metabolite of Lorazepam Midazolam Not Detected Cutoff: 10 ng/mL 05/03/2020 10:22 AM [facility] LOAD BUILDER [facility] Comment: Versed Alpha-Hydroxy Not Detected Cutoff: 10 05/03/2020 10:22 [facility] Midazolam ng/mL AM LOAD BUILDER LAB[facility]IES Comment: Metabolite of Midazolam Oxazepam Not Detected Cutoff: 10 ng/mL 05/03/2020 10:22 AM [facility] LOAD [facility]ILDER LAB[facility] Comment: Serax; Also a metabolite of Chlordiazepo xide, Diazepam, or Temazepam. Oxazepam Not Detected Cutoff: 50 05/03/2020 10:22 [facility] Glucuronide ng/mL AM LOAD BUILDER LABORATORIES Comment: Metabolite of Oxazepam Prazepam, urine Not Detected Cutoff: 10 05/03/2020 10:22 [facility] ng/mL AM [facility]DER [facility] Comment: Centrax Temazepam Not Detected Cutoff: 10 ng/mL 05/03/2020 10:22 AM [facility] LOAD BUILDER LABORATORIES Comment: Restoril; Also a metabolite of Diazepam. Temazepam Not Detected Cutoff: 50 05/03/2020 10:22 [facility] Glucuronide ng/mL AM LOAD BUILDER LABORATORIES Comment: Metabolite of Temazepam Triazolam Not Detected Cutoff: 10 ng/mL 05/03/2020 10:22 AM [facility] Comment: Halcion Alpha-Hydroxy Not Detected Cutoff: 10 05/03/2020 10:22 [facility] Triazolam ng/mL AM LOAD BUILDER LABORATORIES Comment: Metabolite of Triazolam Zolpidem Not Detected Cutoff: 10 ng/mL 05/03/2020 10:22 AM [facility] Comment: Ambien Zolpidem Not Detected Cutoff: 10 05/03/2020 [facility] Oprfkh-2-Cgfpkfapym acid ng/mL 10:22 AM LOAD BUILDER [facility] Comment: Metabolite of Zolpidem Benzodiazepine, Interp - 05/03/2020 10:22 AM LOAD BUILDER [facility] Comment: No benzodiazepines were detected. The ab sence of expected drug(s) and/or drug metabolite(s) may in dicate non-compliance, altered pharmacokinetics , inappropriate timing of specimen collection relative t o drug administration, diluted/adulterated urin e, or limitations of testing. ADDITIONAL INFORMATIO N This test was developed and its performa nce characteristics determined by [facility] in a manner co nsistent with CLIA requirements. This test has not been madeleine ared or approved by the U.S. Food and Drug Administration. Test Performed by: [place] [id number] Virtual Reality Specialist: Benigno Selby M.D. Ph. D.; CLIA# [id number] List patient's Not provided 05/03/2020 10:22 AM [facility] Comment: ADDITIONAL INFORMATIO N Accuracy and completeness of declared me dications on reports solely dependent on information submitted by client. Specimen Anatomical Collection Method Collection Time Receive d Time (Source) Location / / Volume Laterality Urine 05/01/2020 3:33 PM 3:34 LOAD BUILDER PM LOAD BUILDER Melissa Coronado DNP, HYDRAULIC SPECIALIST, BELT REPAIRER LAB URINE ORDERABLES Performing Organization Address City/State/ZIP Code Phon e Number [facility] see result attachment for specific address documented in this encounter Visit Diagnoses Diagnosis Opioid use disorder, moderate, in early remission, on maintenance therapy (HCC) - Primary documented in this encounter Care Teams Heating Unit Installer Relationship Specialty Start Date End Date None, Pcp PCP - General Machine Adjuster Leader 02/06/[address] [place] [phone] documented as of this encounter
--- OUTSIDE RECORDS SUMMARY | 2022-01-14 01:47 | XMS_ITS | Encounter Summary ---
:1990 Author Organization [facility] Address [address] [place] [address] Care Team Providers Name Role Phone None, Pcp Primary Care Provider Unavailable Reason for Visit Reason Comments Abdominal Pain - Encounter Details Date Type Department Care Team Description 04/01/2020 Emergency [facility] Emergency Uday Donald Cr amping affecting Room , antepartum [address] (Primary Dx) [place] [address] [place], [place] [phone] [id number] Social History Tobacco Use Types Packs/Day Years [...] often do you attend roman catholic or mormon Not asked 03/21/2020 services? Do you belong to any clubs or organizations such as Argelia schilling 03/21/2020 roman catholic groups, unions, fraternal [...] with No / Unsure 04/01/2020 8:38 PM CANTEEN MANAGER someone who was confirmed or suspected to have Coronavirus / COVID-19? documented as of this encounter Last Filed Vital Signs Vital Sign Reading Time Taken Comments Blood Pressure 133/78 04/01/2020 10:20 PM CANTEEN MANAGER Pulse 77 04/01/2020 10:20 PM CANTEEN MANAGER Temperature 36.8 ??C (98.2 ??F) 04/01/2020 8:57 PM CANTEEN MANAGER Respiratory Rate 16 04/01/2020 10:20 PM CANTEEN MANAGER Oxygen Saturation 99% 04/01/2020 8:57 PM CANTEEN MANAGER Inhaled Oxygen Concentration - - Weight 78.9 kg (173 lb 15.1 oz) 04/01/2020 8:57 PM CANTEEN MANAGER Height 166 cm (5' 5.35) 04/01/2020 8:57 PM CANTEEN MANAGER Body Mass Index 28.63 04/01/2020 8:57 PM CANTEEN MANAGER documented in this encounter Discharge Instructions AttachmentsThe following attachments cannot be sent through Care Everywhere. Abdominal Pain During Pmzk-je-Jzae (Yakut)documented in this encounter Medications at Time of Discharge Medication Sig Dispensed Refills Start Date End Date acetaminophen Take 1,000 mg by 0 (TYLENOL) 500 MG mouth every 6 (six) tablet hours if needed for mild pain pyridoxine (VITAMIN Take 1 tablet (100 30 tablet 1 04/01/20 20 05/01/2020 B-6) 100 MG mg total) by mouth tabletIndications: 1 (one) time each care, day subsequent , first trimester albuterol HFA Inhale 2 puffs 18 g 1 04/01/2020 022 (Ventolin HFA) 108 every 4 (four) (90 Base) MCG/ACT hours if needed for inhalerIndications: wheezing or Mild intermittent shortness of breath asthma without complication bisacodyl (DULCOLAX) Insert 1 28 suppository 0 04/01/2020 04/29/2020 10 MG suppository (10 mg suppositoryIndication total) into the s: care, rectum 1 (one) time subsequent , if needed for first trimester constipation for up to [address] under the 0 2020 (SUBUTEX) 8 MG tongue 1 (one) time each day 8 mg in am and 4 mg in pm to start doxylamine (UNISON) Take 25 mg by mouth 0 04/14/2020 25 MG tablet at night if needed Take 2 tablets by mouth at bedtime as needed. doxylamine (UNISON) Take 25 mg by mouth 0 020 05/14/2020 25 MG tablet Take 1 tablet at bedtime as needed for nausea. Vit-Fe Take by mouth 0 2020 Fumarate-FA (KP MULTIVITAMINS PO) Vit-Fe Take 1 tablet by 0 01/31/202007/2020 Fumarate-FA (PNV mouth daily Plus Multivitamin) 27-1 MG tablet pyridoxine (B-6) 50 Take 50 mg by mouth 0 020 10/27/2020 MG tablet 2 times daily documented as of this encounter ED Notes Nasima Mejia RN - 04/01/2020 8:58 PM CST Patient presents to the ED with abdominal cramping and pressure along with nausea and back pain. Currently 13 weeks . Denies any vaginal bleeding. EEN MANAGER Uday Donald MD - 04/01/2020 8:38 PM CST HPI Chief Complaint Patient presents with ??? Abdominal Pain - Patient is currently at 13-3/7 weeks gestation based on ultrasound performed on February 24in which she was 8 weeks and 2/7 weeks gestation. She presents today because she is having abdominalcramping in the suprapubic region. She has had a little bit of increase in vaginal discharge but denies any vaginal bleeding. She denies dysuria or increased urinary frequency. No fevers or chills. Pain does her and her lower back. She has had some nausea with this but no vomiting. The symptoms started in the last 1 to 2 days. Nothing seems make it better or worse. Patient History Patient History Allergies Allergen Reactions ??? Sulfa Antibiotics Other (see comments) Past Medical History: Diagnosis Date ??? Anxiety 12/27/2014 ??? Chronic pain syndrome 05/31/2016 ??? Combined drug dependence, continuous abuse (HCC) 02/25/2020 As of 04.23.19 [place] [facility] Per 02.25.20 NOB @[facility]: ??? Drug use: Yes Types: Methamphetamines, Heroin, Cocaine Comment: Last use yesterday 01/30/2020 heroin, methamphetamin (Tuesday01/29/2020) 02.25.20 RUDS - Buprenorphine, U+ only #2 Dependence Polysubstance Continuous (HCC) Thepatient is followed by her addiction physician, Dr. Anthony Rebolledo ([phone]) and has an ??? Disorder of arteries and arterioles (HCC) 02/01/2019 04.23.19 entry Patient also was admitted to [facility] with strokelike symptoms February 01 and . 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 Has been maintained on aspirin. No further symptoms. 02.01.19 [facility] Result Impression 1. No acute intracranial findings. 2. 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 Other Result Information Result ??? History of hepatitis C virus infection 06/24/2017 ??? Migraine headache 05/18/2017 ??? Mild intermittent asthma 07/01/2014 ??? Nicotine dependence 04/02/2011 ??? Peripheral vascular disease (HCC) 04/26/2019 Past Surgical History: Procedure Laterality Date ??? TONSILLECTOMY ??? WRIST SURGERY Right Cyst removal Family History Problem Relation Age of Onset ??? Alcohol abuse Mother ??? Drug abuse Mother ??? Alcohol abuse Father ??? Drug abuse Father ??? Alcohol abuse Sister ??? Drug abuse Sister ??? Migraines Sister ??? Alcohol abuse Brother ??? Heart defect Son ??? Heart disease Maternal Grandmother ??? Drug abuse Maternal Grandmother ??? Alcohol abuse Maternal Grandmother ??? Alcohol abuse Maternal Grandfather ??? Drug abuse Maternal Grandfather ??? Cancer Maternal Grandfather ??? Arthritis Paternal Grandmother ??? Diabetes Paternal Grandfather ??? Alcohol abuse Paternal Grandfather ??? Heart disease Paternal Grandfather Social History Tobacco Use ??? Smoking status: Former Smoker Packs/day: 1.00 Types: Cigarettes Quit date: 03/2020 Years since quittin.0 ??? Smokeless tobacco: Never Used Substance Use Topics ??? Alcohol use: Not Currently Comment: Sober since 2014 ??? Drug use: Not Currently Frequency: 7.0 times per week Types: Amphetamines, Heroin, Marijuana, Cocaine, MDMA (ecstacy) Comment: Last used Heroin 03/11/20 (Heroin is drug of choice per Anjali) Review of Systems Review of Systems Constitutional: Negative for chills, diaphoresis, fatigue and fever. HENT: Negative for nosebleeds, rhinorrhea and trouble swallowing. Respiratory: Negative for cough and shortness of breath. Cardiovascular: Negative for chest pain. Gastrointestinal: Negative for abdominal pain, constipation, diarrhea, nausea and vomiting. Genitourinary: Positive for pelvic pain and vaginal discharge. Negative for dysuria, flank pain, frequency, vaginal bleeding and vaginal pain. Musculoskeletal: Negative for back pain, myalgias and neck pain. Skin: Negative for rash. Neurological: Negative. Physical Exam ED Triage Vitals [04/01/202056] Temp Heart Rate Resp BP 36.8 ??C (98.2 ??F) 84 16 126/72 SpO2 Temp Source Heart Rate Source Patient Position 99 % Temporal Monitor Sitting BP Location FiO2 (%) Weight Left arm -- 78.9 kg (173 lb 15.1 oz) Physical Exam Vitals signs and nursing note reviewed. Constitutional: General: She is not in acute distress. Appearance: Normal appearance. She is normal weight. She is not ill-appearing, toxic-appearing or diaphoretic. HENT: Head: Normocephalic and atraumatic. Right Ear: External ear normal. There is no impacted cerumen. Left Ear: There is no impacted cerumen. Eyes: General: Right eye: No discharge. Left eye: No discharge. Conjunctiva/sclera: Conjunctivae normal. Pupils: Pupils are equal, round, and reactive to light. Neck: Musculoskeletal: Normal range of motion and neck supple. Cardiovascular: Rate and Rhythm: Normal rate and regular rhythm. Heart sounds: Normal heart sounds. Pulmonary: Effort: Pulmonary effort is normal. Breath sounds: Normal breath sounds. No wheezing. Abdominal: General: Abdomen is flat. Bowel sounds are normal. Tenderness: There is no abdominal tenderness. There is no guarding. Musculoskeletal: Normal range of motion. General: No deformity. Lymphadenopathy: Cervical: No cervical adenopathy. Skin: General: Skin is warm and dry. Findings: No erythema or rash. Neurological: General: No focal deficit present. Mental Status: She is alert and oriented to person, place, and time. Psychiatric: Mood and Affect: Mood normal. Stratham Coma Scale Score: 15 Procedures No results found. Labs Reviewed URINALYSIS WITH REFLEX MICROSCOPIC - Abnormal Result Value Type CLEAN CATCH Color, Urine YELLOW Clarity, Urine CLEAR Glucose, Urine NEGATIVE Bilirubin, Urine NEGATIVE Ketones, Urine NEGATIVE Specific Warren, Urine 1.020 Blood, Urine NEGATIVE pH, Urine 7.0 Protein, Urine NEGATIVE Urobilinogen, Urine 0.2 Nitrite, Urine NEGATIVE Leukocytes, Urine TRACE (*) URINALYSIS-MICROSCOPIC EXAM (REFLEXED) - Abnormal Casts, urine NONE SEEN Significant casts, urine NONE SEEN RBC, Urine NONE SEEN WBC, Urine 0-3 Squamous Epithelial, Urine 2+ (*) Trans Epithelial, Urine NONE SEEN Renal Tubular Cells, Urine NONE SEEN Bacteria, Urine 1+ (*) Miscellaneous, urine SEE BELOW URINE CULTURE ADD-ON TEST REQUEST Add-on Testing SEE BELOW ED Course & MDM MDM Number of Diagnoses or Management Options Cramping affecting , antepartum: new and requires workup Amount and/or Complexity of Data Reviewed Clinical lab tests: reviewed and ordered Tests in the radiology section of CPT??: reviewed and ordered Risk of Complications, Morbidity, and/or Mortality Presenting problems: moderate Diagnostic procedures: low Management options: low Patient Progress Patient progress: stable Follow Up Follow-up with your QUAIL FARMER provider within the next 1 to 2 weeks. Current Discharge Medication List CONTINUE these medications which have NOT CHANGED Details acetaminophen (TYLENOL) 500 MG tablet Take 1,000 mg by mouth every 6 (six) hours if needed for mild pain albuterol HFA (Ventolin HFA) 108 (90 Base) MCG/ACT inhaler Inhale 2 puffs every 4 (four) hours if needed for wheezing or shortness of breath Qty: 18 g, Refills: 1 Comments: May substitute ProAir, Proventil, or Ventolin Associated Diagnoses: Mild intermittent asthma without complication bisacodyl (DULCOLAX) 10 MG suppository Insert 1 suppository (10 mg total) into the rectum 1 (one) time if needed for constipation for up to 28 days Qty: 28 suppository, Refills: 0 Associated Diagnoses: care, subsequent , first trimester buprenorphine (SUBUTEX) [address] under the tongue 1 (one) time each day 8 mg in am and 4 mg in pm to start !! doxylamine (UNISON) 25 MG tablet Take 25 mg by mouth at night if needed !! doxylamine (UNISON) 25 MG tablet Take 25 mg by mouth Vit-Fe Fumarate-FA (KP MULTIVITAMINS PO) Take by mouth Vit-Fe Fumarate-FA (PNV Plus Multivitamin) 27-1 MG tablet Take 1 tablet by mouth daily pyridoxine (VITAMIN B-6) 100 MG tablet Take 1 tablet (100 mg total) by mouth 1 (one) time each day Qty: 30 tablet, Refills: 1 Associated Diagnoses: care, subsequent , first trimester !! - Potential duplicate medications found. Please discuss with provider. Discharge Instructions Attached Instructions ABDOMINAL PAIN DURING [id number] (MOHAWK) [[id number]] Discharge Instructions None ED COURSE and CLINICAL IMPRESSION ED Course as of Apr 01 2220 Tue Apr 01, 20202216 We are not able to hear heart tones with Doppler and I tried using the abdominal ultrasound from the point of care but she had emptied her bladder and I cannot visualize [place] or heartbeat so weobtained a ultrasound which after some difficulty they were able to locate the intrauterine and heart rate was in the 150s. Her urinalysis is unremarkable she has 2+ squamous cells 1+ bacteria I added a urine culture and will hold off treating unless it comes back positive. We will have her follow-up with her QUAIL FARMER provider. [JR] ED Course User Index [JR] Uday Donald MD Clinical Impressions as of Apr 01 2220 Cramping affecting , antepartum Disposition: Discharge Uday Donald MD 04/01/202219 EEN MANAGER documented in this encounter Plan of Treatment Not on filedocumented as of this encounter Procedures Procedure Name Priority Date/Time Associated Comments Diagnosis US OB LIMITED 1+ STAT 04/01/2020 10:46 Results for this FETUSES PM CANTEEN MANAGER procedure are i n the results section. ADD-ON TEST REQUEST STAT 04/01/2020 9:27 PM Re sults for this CANTEEN MANAGER procedure are i n the results section. URINALYSIS-MICROSCOPI STAT 04/01/2020 9:02 PM Results for this C EXAM (REFLEXED) CANTEEN MANAGER procedure are in the results section. URINALYSIS WITH STAT 04/01/2020 9:02 PM Result s for this REFLEX MICROSCOPIC CANTEEN MANAGER procedure are in the results section. URINE CULTURE STAT 04/01/2020 9:02 PM Results for this CANTEEN MANAGER procedure are i n the results section. documented in this encounter Results Ultrasound OB limited (04/01/2020 10:46 PM CANTEEN MANAGER) Anatomical Region Laterality Modality Body Ultrasound Specimen (Source) Anatomical Collection Method Collection Time Re ceived Time Location / / Volume Laterality 04/01/2020 10:46 PM CANTEEN MANAGER Impressions 04/01/2020 11:12 PM CANTEEN MANAGER IMPRESSION: ??Single, live, intrauterine gestation with estimated menstrual age of 13 weeks 4 days and HAZEL of 2020. No acute abnormalities are identified. MYLA CALL MD [employer] Dictated by Isauro Call MD @ 04/01/2020 1 1:09:45 PM Dictated by: Isauro Call MD @ 04/01/2020 23:12:00 (Electronically Signed) Narrative 04/01/2020 11:12 PM CANTEEN MANAGER INDICATION: pain, ramping, no heart tones LIMITED OBSTETRICAL ULTRASOUND Technique: ??Multiple transabdominal son ographic images of the gravid uterus were performed. Comparison: ??No previous comparison suresh dies are currently available. Findings: ??There is a single, live, int rauterine gestation. cardiac activity is present with a heart rate of 156 BPM. The placenta is posterior in position and there is no ev idence of previa or abruption. ?? The cervix measures 3.2 cm in length and appears closed. ??Amniotic fluid volume appears subjectively normal. Inupiat n-rump length of 7.3 centimeters corresponds to a menstrual age of 13 wee ks 4 days and an HAZEL of 10/03/2020. Maternal ovaries appear norm al bilaterally. Procedure Note Myla Call MD - 04/01/2020Formattin g of this note might be different from the original. INDICATION: pain, ramping, no hear t tones LIMITED OBSTETRICAL ULTRASOUND Technique: Multiple transabdominal sonog raphic images of the gravid uterus were performed. Comparison: No previous comparison studi es are currently available. Findings: There is a single, live, intra uterine gestation. cardiac activity is present with a heart rate of 156 BPM. The placenta is posterior in position and there is no ev idence of previa or abruption. The cervix measures 3.2 cm in length and appears closed. Amniotic fluid volume appears subjectively normal. Inupiat n-rump length of 7.3 centimeters corresponds to a menstrual age of 13 wee ks 4 days and an HAZEL of 10/03/2020. Maternal ovaries appear norm al bilaterally. IMPRESSION: Single, live, intrauterine g estation with estimated menstrual age of 13 weeks 4 days and HAZEL of 2020. No acute abnormalities are identified. MYLA CALL MD [employer] Dictated by Isauro Call MD @ 04/01/2020 1 1:09:45 PM Dictated by: Isauro Call MD @ 04/01/2020 23:12:00 (Electronically Signed) Uday Donald MD IMG OB US PROCEDURES Add-On Test Request urine culture (04/01/2020 9:27 PM CANTEEN MANAGER) [facility] Method Time Signature Add-on Testing SEE BELOW 04/01/2020 YAKIMA 10:06 PM CANTEEN MANAGER [facility] Comment: Urine Culture added Specimen Anatomical Collection Method Collection Time Receive d Time (Source) Location / / Volume Laterality 04/01/2020 9:27 PM 0 9:27 CANTEEN MANAGER PM CANTEEN MANAGER Uday Donald MD LAB BLOOD ORDERABLES Performing Organization Address City/State/ZIP Code Phon e Number [facility] [address] [place] [address] Urine culture (04/01/2020 9:02 PM CANTEEN MANAGER) [facility] Method Time Signature Urine Culture No Growth 04/03/2020 YAKIMA 7:39 AM [facility] Specimen Anatomical Collection Method Collection Time Receive d Time (Source) Location / / Volume Laterality Urine (Urine, 04/01/2020 9:02 PM 04/01/20 20 9:06 Clean Catch) CANTEEN MANAGER PM CANTEEN MANAGER Comment: URINE Uday Donald MD LAB MICROBIOLOGY - GENERAL O RDERABLES Performing Organization Address City/[facility] Phon e Number [facility] [address] [place] [address] (ABNORMAL) Urinalysis-Microscopic Exam (04/01/2020 9:02 PM CANTEEN MANAGER) [facility] Signature Casts, urine NONE SEEN 0-2 Hyaline 04/01/2020 MICHAEL /lpf 9:23 PM [facility] Significant NONE SEEN None Seen 04/01/2020 YAKIMA casts, urine /lpf 9:23 PM [facility] RBC, Urine NONE SEEN 0 - 3 /hpf 04/01/2020 YAKIMA 9:23 PM [facility] WBC, Urine 0-3 /hpf 04/01/2020 YAKIMA 9:23 PM [facility] Comment: Male Ref Range ? 0-3/hpf Female Ref Range ?? 0-10/hpf Squamous Epithelial, 2+ (A) Few /lpf 04/01/2020 9:23 PM [facility] Trans Epithelial, NONE SEEN 0 - 3 /hpf 04/01/2020 9:23 PM [facility] Urine [facility] Renal Tubular Cells, NONE SEEN 0 - 1 /hpf 04/01/2020 9:23 PM [facility] Bacteria, Urine 1+ (A) None Seen 04/01/2020 9:23 PM [facility] ED MEDICAL /hpf [facility] Miscellaneous, urine SEE BELOW 04/01/2020 9:23 PM [facility] Comment: 1+ Amorphous Phosphates Present. Specimen Anatomical Collection Method Collection Time Receive d Time (Source) Location / / Volume Laterality 04/01/2020 9:02 PM 0 9:06 CANTEEN MANAGER PM CANTEEN MANAGER Uday Donald MD LAB URINE ORDERABLES Performing Organization Address City/[facility] Phon e Number [facility] [address] [place] [address] (ABNORMAL) Urinalysis with reflex microscopic (04/01/2020 9:02 PM [facility]) [facility] Method Time Signature Type CLEAN CATCH 04/01/2020 MICHAEL 9:06 PM [facility] Color, Urine YELLOW YELLOW 04/01/2020 MICHAEL 9:23 PM [facility] Clarity, CLEAR CLEAR 04/01/2020 MICHAEL Urine 9:23 PM [facility] Glucose, NEGATIVE NEGATIVE 04/01/2020 MICHAEL Urine mg/dL 9:23 PM [facility] Bilirubin, NEGATIVE NEGATIVE 04/01/2020 MICHAEL Urine 9:23 PM [facility] Ketones, NEGATIVE NEGATIVE 04/01/2020 MICHAEL Urine mg/dL 9:23 PM [facility] Specific 1.020 1.000 04/01/2020 MICHAEL Warren, ->=1.030 9:23 PM [facility] Blood, Urine NEGATIVE NEGATIVE 04/01/2020 MICHAEL 9:23 PM [facility] pH, Urine 7.0 5.0 - 7.0 04/01/2020 MICHAEL 9:23 PM [facility] Protein, NEGATIVE NEGATIVE-TRA 04/01/2020 MICHAEL Urine CE mg/dL 9:23 PM [facility] Urobilinogen, 0.2 0.2 - 1.0 04/01/2020 MICHAEL Urine E.U./dL 9:23 PM [facility] Nitrite, NEGATIVE NEGATIVE 04/01/2020 MICHAEL Urine 9:23 PM [facility] Leukocytes, TRACE (A) NEGATIVE 04/01/2020 MICHAEL Urine 9:23 PM [facility] Specimen Anatomical Collection Method Collection Time Receive d Time (Source) Location / / Volume Laterality Urine (Urine, 04/01/2020 9:02 PM 04/01/20 9:06 Clean Catch) CANTEEN MANAGER PM [facility] Uday Donald MD LAB URINE ORDERABLES Performing Organization Address City/State/ZIP Code Phon e Number [facility] [address] [place] [address] documented in this encounter Visit Diagnoses Diagnosis Cramping affecting , antepartum - Primary documented in this encounter Care Teams Ore Fielder Relationship Specialty Start Date End Date None, Pcp PCP - General Chemical Dependency Therapist 02/06/19 [address] [place] [phone] documented as of this encounter
--- OUTSIDE RECORDS SUMMARY | 2022-01-14 01:47 | XMS_ITS | Encounter Summary ---
:1990 Author Organization [facility] Address [address] [place] [address] Care Team Providers Name Role Phone None, Pcp Primary Care Provider Unavailable Encounter Details Date Type Department Care Team Description 04/15/2020 Telephone Sports Medicine Polo Riggs MD [address] [address] [place] [address] [place] [address] (Wo rk) Social History Tobacco Use Types [...] 03/21/2020 relatives? How often do you attend confucianism or nondenominational Not asked 03/21/2020 services? Do you belong to any clubs or organizations such as Not aske d 03/21/2020 confucianism groups, unions, fraternal or athletic groups, or [...] with No / Unsure 04/01/2020 8:38 PM PULP ROLLER someone who was confirmed or suspected to have Coronavirus / COVID-19? documented as of this encounter Miscellaneous Notes Telephone Encounter - Radha Wiley MA - 04/15/2020 10:42 AM CST Noted, left knee x-rays have been ordered ROLLER Telephone Encounter - Soto Pritchard - 04/15/2020 10:30 AM CST PLEASE ORDER XRAYS TO 04/15 SEEING GENNY 04/17 FOR LEFT KNEE ROLLER documented in this encounter Plan of Treatment Not on filedocumented as of this encounter Visit Diagnoses Not on filedocumented in this encounter Care Teams Sail Finisher Hand Relationship Specialty Start Date End Date None, Pcp PCP - General Technician'S Helper 02/06/[address] [place] [phone] documented as of this encounter
--- OUTSIDE RECORDS SUMMARY | 2022-01-14 01:47 | XMS_ITS | Encounter Summary ---
:[address] [facility] Address [address] [place] [address] Care Team Providers Name Role Phone None, Pcp Primary Care Provider Unavailable Encounter Details Date Type Department Care Team Description 04/01/2020 Travel Social History Tobacco Use Types Packs/Day [...] How often do you attend buddhist or mu-ism Not asked 03/21/2020 services? Do you belong to any clubs or organizations such as Argelia schilling 03/21/2020 buddhist groups, unions, fraternal or [...] with No / Unsure 04/01/2020 8:38 PM ATMOSPHERIC PHYSICIST someone who was confirmed or suspected to have Coronavirus / COVID-19? documented as of this encounter Plan of Treatment Not on filedocumented as of this encounter Visit Diagnoses Not on filedocumented in this encounter Care Teams Groutman Relationship Specialty Start Date End Date None, Pcp PCP - General Tank Car Cleaner 02/06/19 [address] [place] [address] documented as of this encounter
--- OUTSIDE RECORDS SUMMARY | 2022-01-14 01:47 | XMS_ITS | Encounter Summary ---
:1990 Author Organization [facility] Address [address] [place] [id number] Care Team Providers Name Role Phone None, Pcp Primary Care Provider Unavailable Encounter Details Date Type Department Care Team Description 04/18/2020 Telephone [facility] Women's Health Pooja Diaz MD [facility] Undertaker Helper [address] [facility] [address] [place] [phone] [place], [place] [address] [phone] Social History Tobacco Use Types Packs/Day Years [...] How often do you attend lutheran or tenriism Not asked 03/21/2020 services? Do [...] with No / Unsure 04/01/2020 8:38 PM RN FIRST ASSISTANT someone who was confirmed or suspected to have Coronavirus / COVID-19? documented as of this encounter Miscellaneous Notes Telephone Encounter - Vanessa Issa RN - 04/23/2020 8:28 AM CST Advised and stated understanding. FIRST ASSISTANT Telephone Encounter - Farheen Liu RN - 04/22/2020 1:31 PM RN FIRST ASSISTANT [facility] with [facility] FIRST ASSISTANT Telephone Encounter - Zainab Rm MD - 04/22/2020 11:52 AM CST Prenatals sent. It appears there was another Rx in there as well -- I sent a second. Zianab Rm MD FIRST ASSISTANT Telephone Encounter - Farheen Liu RN - 04/22/2020 8:15 AM RN FIRST ASSISTANT Patient states she has still not received her prescription for her vitamins. Patient is staying at [facility] so prescription needs to be sent to [place] [facility]. [facility] phone number is [phone]. Patient would like a phone call when this has been done. FIRST ASSISTANT Telephone Encounter - Vanessa Issa RN - 04/18/2020 4:23 PM CST [facility] at [facility], cell phone number on chart not working. FIRST ASSISTANT Telephone Encounter - Debbie Staufferon - 04/18/2020 3:40 PM CST Pt called and she is out of her Perineal vitamins . She said non was sent to her pharmacy . Please advise thank you FIRST ASSISTANT documented in this encounter Plan of Treatment Not on filedocumented as of this encounter Goals Goal Patient Goal Associated Recent Patient-Stated? Author Type Problems Progress secure housing General Yes Melissa Coronado, DNP, METAL SPRAYER [employer]ODUCTION, STEEL PICKLER Note: Formatting of this note might be d ifferent from the original. - has applied for several housing lists; waiting to hear back, wants to be near family documented as of this encounter Visit Diagnoses Not on filedocumented in this encounter Care Teams Director Of Investigations Relationship Specialty Start Date End Date None, Pcp PCP - General Riprap Placer 02/[birth year]/[address] [place] [phone] documented as of this encounter
--- OUTSIDE RECORDS SUMMARY | 2022-01-14 01:47 | XMS_ITS | Encounter Summary ---
:1990 Author Organization [facility] Address [address] [place] [address] Care Team Providers Name Role Phone None, Pcp Primary Care Provider Unavailable Encounter Details Date Type Department Care Team Description 04/17/2020 Lab SE Lab Opioid use disorder, moderat e, [address] in early remission, [place] [address] maintenance therapy ([facility]) [phone] Social History Tobacco Use Types Packs/Day Years [...] How often do you attend zoroastrian or islam Not asked 03/21/2020 services? Do you belong to any clubs or organizations such as Not askbreanne schilling 03/21/2020 zoroastrian groups, unions, fraternal or [...] with No / Unsure 04/01/2020 8:38 PM WET PRIMER POWDER BLENDER someone who was confirmed or suspected to have Coronavirus / COVID-19? documented as of this encounter Progress Notes Melissa Coronado, JUAN DIEGO, INSULATION AND FLOORING ASSEMBLER, ABSORPTION OPERATOR - 04/17/2020 10:15 AM CST No illicit use Electronically signed by Melissa Coronado DNP, INSULATION AND FLOORING ASSEMBLER, ABSORPTION OPERATOR at 04/21/2020 3:53 PM WET PRIMER POWDER BLENDER documented in this encounter Plan of Treatment Not on filedocumented as of this encounter Goals Goal Patient Goal Associated Recent Patient-Stated? Author Type Problems Progress secure housing General Yes Melissa Coronado, JUAN DIEGO, INSULATION AND FLOORING ASSEMBLER, ABSORPTION OPERATOR Note: Formatting of this note might be d ifferent from the original. - has applied for several housing lists; waiting to hear back, wants to be near family documented as of this encounter Procedures Procedure Name Priority Date/Time Associated Diagnosis Comme nts CONTROLLED Routine 04/17/2020 10:29 Opioid use disorder, Res ults for this SUBSTANCES AM WET PRIMER POWDER BLENDER moderate, in early procedure are in MONITORING PANEL, remission, on the [facility] URINE maintenance therapy section. (HCC) documented in this encounter Results (ABNORMAL) Controlled Substance Monitoring Panel, Urine (04/17/2020 10:29 AM WET PRIMER POWDER BLENDER) Component Value Ref Test Analysis Performed At [facility] Method Time Signature Amphetamines Negative Cutoff: 04/19/2020 [facility] 500 3:11 PM WET PRIMER POWDER BLENDER [facility] ng/mL Barbiturates Negative Cutoff: 04/19/2020 [facility] 200 3:11 PM WET PRIMER POWDER BLENDER [facility] ng/mL Cocaine Negative Cutoff: 04/19/2020 [facility] 150 3:11 PM WET PRIMER POWDER BLENDER [facility] ng/mL Phencyclidine, Mec Negative Cutoff: 04/19/2020 [facility] 25 ng/mL 3:11 PM WET PRIMER POWDER BLENDER [facility] Tetrahydrocannabinol Negative Cutoff: 04/19/2020 [facility] 50 ng/mL 3:11 PM WET PRIMER POWDER BLENDER [facility] Comment: ADDITIONAL INFORMATIO N This report is intended for use in clini wilfred monitoring or management of patients. ??It is not inte nded for use in employment-related testing. Codeine Not Detected Cutoff: 25 ng/mL 04/19/2020 3:11 PM [facility] PRIM[facility] POWDER BLENDER [facility] Comment: Tylenol 3 Krrqgau-5-mvpn-glucuronide Not Detected Cutoff: 100 04/19/19 21 [facility] ng/mL 3:11 PM W[facility] PRIMER POWDER BLENDER [facility] Comment: Metabolite of codeine Morphine Urine Not Detected Cutoff: 04/19/2020 3:11 PM [facility] ng/mL [facility] PRIM[facility] POWDER BLEND[facility] Comment: Emilia Perry, MS Contin; Also a minor metabolite (10%) of codeine and can be seen in low concentra tions (<2,000 ng/mL) with poppy seed ingestion. Vplidqli-7-scci-glucuronide Not Detected Cutoff: 100 021 [facility] ng/mL 3:11 PM [facility] PRIM[facility] POWDER BL[facility] Comment: Metabolite of morphine 6-monoacetylmorphine Not Detected Cutoff: 04/19/2020 3:11 [facility] ng/mL PM W[facility] PRIM[facility] POWDER [facility] Comment: Metabolite of heroin Hydrocodone Not Detected Cutoff: 25 ng/mL 04/19/2020 3:11 PM [facility] WET PRIMER POWDER BLENDER [facility] Comment: Lortab, [place]rie, Vicodin; Also a very phoenix r metabolite of codeine and impurity (<1%) of oxycodone. Norhydrocodone Not Detected Cutoff: 04/19/2020 3:11 PM [facility] ng/mL [facility] Comment: Metabolite of hydrocodone Dihydrocodeine Not Detected Cutoff: 04/19/2020 3:11 PM [facility] ng/mL [facility] Comment: Metabolite of hydrocodone Hydromorphone Not Detected Cutoff: 25 ng/mL 04/19/2020 3:11 PM [facility] WET PRIMER POWDER BLENDER [facility] Comment: Dilaudid, Exalgo; Also a metabolite of h ydrocodone and a minor (<5%) metabolite of morphine. Nggwzynwgrsbu-5-tvym-glucuronide Not Cutoff: 021 [facility] Detected 100 ng/mL 3:11 PM [facility] Comment: Metabolite of hydromorphone Oxycodone Not Detected Cutoff: 25 ng/mL 04/19/2020 3:11 PM [facility] WET PRIMER POWDER BLENDER [facility] Comment: Endocet, Percocet, Oxycontin Noroxycodone Not Detected Cutoff: 25 ng/mL 04/19/2020 3:11 P [facility] WET PRIMER POWDER BLEND[facility] Comment: Metabolite of oxycodone Oxymorphone Not Detected Cutoff: 25 ng/mL 04/19/2020 3:11 PM [facility] WET PRIMER POWDER BL[facility] Comment: Numorphan, Opana; Also a metabolite of o xycodone. Glfruerjonf-1-cwuh-glucuronide Not Detected Cutoff: 2020 [facility] 100 ng/mL 3:11 PM [facility] Comment: Metabolite of oxymorphone and/or naloxon e (nornaloxone) Noroxymorphone Not Detected Cutoff: 25 04/19/2020 3:[address] [facility] ng/mL WET PRIMER POWDER BLENDER [facility] Comment: Metabolite of oxymorphone and/or naloxon e (nornaloxone) Fentanyl Not Detected Cutoff: 2 ng/mL 04/19/2020 3:[address] [facility] WET PRIMER POWDER BLENDER [facility] Comment: Actiq, Duragesic, Fentora Norfentanyl Not Detected Cutoff: 2 ng/mL 04/19/2020 3:11 PM [facility] WET PRIMER POWDER BLEND[facility] Comment: Metabolite of fentanyl Meperidine Not Detected Cutoff: 25 ng/mL 04/19/2020 3:11 PM [facility] WET PRIM[facility] POWDER BL[facility] Comment: Demerol Normeperidine Not Detected Cutoff: 25 ng/mL 04/19/2020 3:11 PM [facility] WET PRIMER POWDER BLEND[facility] Comment: Metabolite of meperidine Naloxone Not Detected Cutoff: 25 ng/mL 04/19/2020 3:11 PM [facility] WET PRIMER POWDER BLENDER [facility] Comment: Narcan Rxxjsljf-0-vmjf-glucuronide Not Detected Cutoff: 100 021 [facility] ng/mL 3:11 PM [facility] PR[facility] POW[facility] Comment: Metabolite of naloxone Methadone Not Detected Cutoff: 25 ng/mL 04/19/2020 3:11 PM [facility] WET PRIMER POWDER BLENDER [facility] Comment: Dolophine EDDP Not Detected Cutoff: 25 ng/mL 04/19/2020 3:[address] [facility] Comment: Metabolite of methadone Propoxyphene Not Detected Cutoff: 25 ng/mL 04/19/2020 3:11 P [facility] Comment: Darvon, Darvocet Norpropoxyphene Not Detected Cutoff: 25 04/19/2020 3:11 PM [facility] ng/mL W[facility] PRIM[facility] POWDER BL[facility] Comment: Metabolite of propoxyphene Tramadol Not Detected Cutoff: 25 ng/mL 04/19/2020 3:11 PM [facility] WET PRIMER POWDER BL[facility] Comment: Tradol, Ultram, Ultracet O-desmethyltramadol Not Detected Cutoff: 25 04/19/2020 3:11 [facility] ng/mL PM WET PRIMER POWDER BLENDER [facility] Comment: Metabolite of tramadol Tapentadol Not Detected Cutoff: 25 ng/mL 04/19/2020 3:11 PM [facility] Comment: Nucynta N-desmethyltapentadol Not Detected Cutoff: 50 04/19/2020 3:1 1 [facility] ng/mL PM WET PRIMER POWDER BLENDER [facility] Comment: Metabolite of tapentadol Wikhhnbakv-zxdm-ydiwqhwesnf Not Detected Cutoff: 100 021 [facility] ng/mL 3:11 PM [facility]OW[facility] Comment: Metabolite of tapentadol Buprenorphine Present (A) Cutoff: 5 ng/mL 04/19/2020 3:11 PM [facility] Comment: Buprenex, Suboxone Norbuprenorphine Present (A) Cutoff: 5 ng/mL 04/19/2020 3:11 PM [facility] Comment: Metabolite of buprenorphine Norbuprenorphine Present (A) Cutoff: 20 04/19/2020 3:11 [facility] glucuronide ng/mL PM WET PRIMER POWDER BLENDER [facility] Comment: Metabolite of buprenorphine Opioid Interpretation - 04/19/2020 3:11 PM WET PRIMER POWDER BLENDER [facility] Comment: Test detected the presence of buprenorph ine and its metabolites (norbuprenorphine, norbupren orphine glucuronide). Suspect use of buprenorphi ne within the past three days. ADDITIONAL INFORMATIO N This test was developed and its performa nce characteristics determined by [facility] in a manner co nsistent with CLIA requirements. This test has not been madeleine ared or approved by the U.S. Food and Drug Administration. Creatinine, Urine 193.6 mg/dL 04/19/2020 3:11 [facility] PM WET PRIMER POWDER BLENDER [facility] Specific [place], 1.024 04/19/2020 3:11 [facility] Urine PM WET PRIMER POWDER BLEND[facility] pH, Urine 5.8 04/19/2020 3:11 [facility] WET PRIMER POWDER BLEND[facility] Oxidants Negative Cutoff: 200 04/19/2020 3:11 [facility] mg/L PM WET PRIMER POWDER BLENDER [facility] Comment Normal 04/19/2020 3:11 [facility] PM WET PRIMER POWDER BLENDER [facility] Alprazolam Not Detected Cutoff: 04/19/2020 3:11 [facility] ng/mL PM W[facility] PRIM[facility] POWDER BLEND[facility] Comment: Xanax Alpha-Hydroxyalprazolam UR Not Detected Cutoff: [facility] ng/mL 3:11 PM [facility]OW[facility] Comment: Metabolite of Alprazolam Alpha-Hydroxyalprazolam Not Detected Cutoff: 50 04/19/2020 [facility] Glucuronide ng/mL 3:11 PM W[facility] PRIM[facility] POWDER BLEND[facility] Comment: Metabolite of Alprazolam Chlordiazepoxide Not Detected Cutoff: 04/19/2020 3:11 [facility] ng/mL PM WET PRIMER POWDER BLEND[facility] Comment: Librium Clobazam Not Detected Cutoff: 10 ng/mL 04/19/2020 3:11 PM [facility] PRIM[facility] POWDER BLEND[facility] Comment: Frisium, Onfi N-Desmethylclobazam Not Detected Cutoff: 200 04/19/2020 3:11 [facility] ng/mL PM [facility]OW[facility] Comment: Metabolite of Clobazam Clonazepam Lvl Not Detected Cutoff: 04/19/2020 3:11 PM [facility] ng/mL [facility] POWDER [facility] Comment: Klonopin, Rivotril 7-Aminoclonazepam Not Detected Cutoff: 04/19/2020 3:11 [facility] ng/mL PM WET PRIM[facility] POWDER BLEND[facility] Comment: Metabolite of Clonazepam Diazepam UR Not Detected Cutoff: 04/19/2020 3:11 PM [facility] Quant ng/mL WET PRIMER POWDER BLEND[facility] Comment: Valium Nordiazepam Not Detected Cutoff: 10 ng/mL 04/19/2020 3:11 PM [facility] WET PRIMER POWDER BLENDER [facility] Comment: Metabolite of Chlordiazepoxide, Diazepam , or Prazepam. Flunitrazepam Not Detected Cutoff: 10 ng/mL 04/19/2020 3:11 PM [facility] WET PRIMER POWDER BLENDER [facility] Comment: Rohypnol 7-Aminoflunitrazepam Not Detected Cutoff: 10 04/19/2020 3:11 [facility] ng/mL PM WET PRIMER POWDER BLEND[facility] Comment: Metabolite of Flunitrazepam Flurazepam Not Detected Cutoff: 10 ng/mL 04/19/2020 3:11 PM [facility] WET PRIMER POWDER BLENDER [facility] Comment: Dalmane 2- hydroxy ethyl Not Detected Cutoff: 10 04/19/2020 3:11 [facility] flurazepam ng/mL PM WET PRIMER POWDER BLENDER [facility] Comment: Metabolite of Flurazepam Lorazepam Not Detected Cutoff: 10 ng/mL 04/19/2020 3:11 PM [facility] WET PRIMER POWDER BLEND[facility] Comment: Ativan Lorazepam Not Detected Cutoff: 50 04/19/2020 3:11 [facility] Glucuronide ng/mL PM WET PRIMER POWDER BLENDER [facility] Comment: Metabolite of Lorazepam Midazolam Not Detected Cutoff: 10 ng/mL 04/19/2020 3:11 PM [facility] WET PRIMER POWDER BLENDER [facility] Comment: Versed Alpha-Hydroxy Not Detected Cutoff: 10 04/19/2020 3:11 [facility] Midazolam ng/mL PM WET PRIMER POWDER BLEND[facility] Comment: Metabolite of Midazolam Oxazepam Not Detected Cutoff: 10 ng/mL 04/19/2020 3:11 PM [facility] WET PRIMER POWDER BLENDER [facility] Comment: Serax; Also a metabolite of Chlordiazepo xide, Diazepam, or Temazepam. Oxazepam Not Detected Cutoff: 50 04/19/2020 3:11 [facility] Glucuronide ng/mL PM WET PRIMER POWDER BLENDER [facility] Comment: Metabolite of Oxazepam Prazepam, urine Not Detected Cutoff: 10 04/19/2020 3:11 PM [facility] ng/mL WET PRIMER POWDER BLENDER [facility] Comment: Centrax Temazepam Not Detected Cutoff: 10 ng/mL 04/19/2020 3:11 PM [facility] WET PRIMER POWDER BLENDER [facility] Comment: Restoril; Also a metabolite of Diazepam. Temazepam Not Detected Cutoff: 50 04/19/2020 3:11 [facility] Glucuronide ng/mL PM WET PRIM[facility] POWDER BL[facility] Comment: Metabolite of Temazepam Triazolam Not Detected Cutoff: 10 ng/mL 04/19/2020 3:11 PM [facility] WET PRIM[facility] POWDER [facility] Comment: Halcion Alpha-Hydroxy Not Detected Cutoff: 10 04/19/2020 3:11 [facility] Triazolam ng/mL PM WET PRIMER POWDER BLEND[facility] Comment: Metabolite of Triazolam Zolpidem Not Detected Cutoff: 10 ng/mL 04/19/2020 3:11 PM [facility] Comment: Ambien Zolpidem Not Detected Cutoff: 10 04/19/2020 3:11 [facility] Bqqwju-8-Wouwhjonmw acid ng/mL PM WET PRIMER POWDER BLENDER [facility]OR ATORIES Comment: Metabolite of Zolpidem Benzodiazepine, Interp - 04/19/2020 3:11 P M WET PRIMER POWDER BLENDER [facility] Comment: No benzodiazepines were detected. The ab sence of expected drug(s) and/or drug metabolite(s) may in dicate non-compliance, altered pharmacokinetics , inappropriate timing of specimen collection relative t o drug administration, diluted/adulterated urin e, or limitations of testing. ADDITIONAL INFORMATIO N This test was developed and its performa nce characteristics determined by [facility] in a manner co nsistent with CLIA requirements. This test has not been madeleine ared or approved by the U.S. Food and Drug Administration. Test Performed by: [place] [address] Severity Of Illness Coordinator: Benigno Selby M.D. Ph. D.; CLIA# [id number] List patient's Not provided 04/19/2020 3:11 PM WET PRIMER POWDER BLENDER [facility] Comment: ADDITIONAL INFORMATIO N Accuracy and completeness of declared me dications on reports solely dependent on information submitted by client. Specimen Anatomical Collection Method Collection Time Receive d Time (Source) Location / / Volume Laterality Urine 04/17/2020 10:29 04/17/2020 AM WET PRIMER POWDER BLENDER 11:23 AM WET PRIMER POWDER BLENDER Melissa Coronado DNP, INSULATION AND FLOORING ASSEMBLER, ABSORPTION OPERATOR LAB URINE ORDERABLES Performing Organization Address City/State/ZIP Code Phon e Number [facility] see result attachment for specific address documented in this encounter Visit Diagnoses Diagnosis Opioid use disorder, moderate, in early remission, on maintenance therapy (HCC) documented in this encounter Care Teams Reporting Manager Relationship Specialty Start Date End Date None, Pcp PCP - General Rn Case Management 02/06/19 [address] [place] [phone] documented as of this encounter
--- OUTSIDE RECORDS SUMMARY | 2022-01-14 01:47 | XMS_ITS | Encounter Summary ---
:1990 Author Organization [facility] Address [address] [place] [address] Care Team Providers Name Role Phone None, Pcp Primary Care Provider Unavailable Encounter Details Date Type Department Care Team Description 04/07/2020 Telephone [facility] Emergen cy Room Uday Donald MD [address] [place] [address] [place] [address] (Wo rk) Social History Tobacco Use Types [...] 03/21/2020 relatives? How often do you attend adventism or protestant Not asked 03/21/2020 services? Do you belong to any clubs or organizations such as Argelia schilling 03/21/2020 adventism groups, unions, fraternal or athletic groups, or [...] place to sleep or slept in a chcf (including now)? Education Answer Date Recorded What is the highest level of school you have High school gra [employer] 03/21/2020 completed or the highest degree you have received? Sex Assigned at Date Recorded Not on file COVID-19 Exposure Response Date Recorded In the last month, have you been in contact with No / Unsure 04/01/2020 8:38 PM PSYCHIATRIC NURSING ASSISTANT someone who was confirmed or suspected to have Coronavirus / COVID-19? documented as of this encounter ED Notes Evelin Tran RN - 04/07/2020 9:50 AM CST Pt called ED for results of her urine culture. Informed pt that there was no growth on urine culture. Pt verbalized understanding and will follow up with new or worsening symptoms. Evelin Tran RN 04/07/20 0954 HIATRIC NURSING ASSISTANT documented in this encounter Plan of Treatment Not on filedocumented as of this encounter Visit Diagnoses Not on filedocumented in this encounter Care Teams Licensed Weigher Relationship Specialty Start Date End Date None, Pcp PCP - General Nursing Consultant 02/06/[address] [place] [phone] documented as of this encounter
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
--- OUTSIDE RECORDS SUMMARY | 2022-01-14 01:47 | XMS_ITS | Encounter Summary ---
:1990 Author Organization [facility] Address [address] [place] [address] Care Team Providers Name Role Phone None, Pcp Primary Care Provider Unavailable Encounter Details Date Type Department Care Team Description 04/15/2020 Orders Only Sports Medicine Polo Riggs Left knee pain, [address] [place] [address] [address] [facility] (Primary Dx) [phone] [place], [place] [id number] Social History Tobacco Use Types Packs/Day Years [...] 03/21/2020 relatives? How often do you attend protestant or episcopalian Not asked 03/21/2020 services? Do you belong to any clubs or organizations such as Not chinmay schilling 03/21/2020 protestant groups, unions, fraternal or athletic groups, or [...] with No / Unsure 04/01/2020 8:38 PM THEATER EDUCATION TEACHER someone who was confirmed or suspected to have Coronavirus / COVID-19? documented as of this encounter Plan of Treatment Scheduled Orders Name Type Priority Associated Diagnoses Order S chedule X-ray Knee 3 Views Imaging Routine Left knee pain, Expect ed: 04/15/2020, Left unspecified chronicity Expir es: 04/15/2021 documented as of this encounter Visit Diagnoses Diagnosis Left knee pain, unspecified chronicity - Primary documented in this encounter Care Teams Optical Systems Engineer Relationship Specialty Start Date End Date None, Pcp PCP - General Vocational Placement Specialist 02/06/[address] [place] [phone] documented as of this encounter
--- OUTSIDE RECORDS SUMMARY | 2022-01-14 01:47 | XMS_ITS | Encounter Summary ---
:1990 Author Organization [facility] Address [address] [place] [address] Care Team Providers Name Role Phone None, Pcp Primary Care Provider Unavailable Encounter Details Date Type Department Care Team Description 04/17/2020 Office Visit SE MEDICATION Ivonne, Melissa Opioid use disorder, ASSISTED TREATMENT K., DNP, HOOD MAKER, ENAMEL BUFFER moderate, in early [address], [place] [address] [place] maintenance therapy [phone] (HCC) (Primary Dx) Social History Tobacco [...] How often do you attend anabaptism or spiritism Not asked 03/21/2020 services? Do you belong [...] with No / Unsure 04/01/2020 8:38 PM [facility] someone who was confirmed or suspected to have Coronavirus / COVID-19? documented as of this encounter Last Filed Vital Signs Vital Sign Reading Time Taken Comments Blood Pressure 135/81 04/17/2020 9:24 AM [facility] Pulse 115 04/17/2020 9:24 AM [facility] Temperature 36.8 ??C (98.3 ??F) 04/17/2020 9:24 AM [facility] Respiratory Rate - - Oxygen Saturation 99% 04/17/2020 9:24 AM [facility] Inhaled Oxygen Concentration - - Weight - - Height - - Body Mass Index - - documented in this encounter Patient Instructions Patient InstructionsMelissa Coronado DNP, APRN, CNP - 04/17/2020 9:30 AM [facility] Continue Subutex 8 mg twice daily. Follow up with Melissa on , 04/24/2020, with lab prior. [employer] documented in this encounter Progress Notes Melissa Coronado DNP, APRN, MIK - 04/17/2020 9:30 AM CST [facility] Clinic Follow Up Note Discussion Date: 04/17/2020 11:30 AM CHIEF COMPLAINT: Anjali presents for [facility] Clinic follow up visit for management of opioid use disorder. Last visit: 04/14/2020, had initial consult She has been taking Suboxone as prescribed: Yes Current total daily dose is 16 mg Suboxone film/tab count is within range: Yes Stores Suboxone securely: Yes, stored at [facility] Used any mood altering drugs since last visit: No Cravings for narcotics: No Suboxone side effects: No Urine Toxicology: awaiting results [facility] Pain: mild cramping Mood: Depressed and Anxious Sleep: fair Appetite: normal, no concerns Employment status changes: not working now, in residential treatment Housing: lives at [facility] Current life stressors: Conflict with treatment staff Daily Functioning/ADLs: no concerns or changes Relationships/Social Support: friends, family Recovery Activities: in residential treatment currently ASSESSMENT AND FOLLOW UP PLAN: Opioid use disorder, moderate, in early remission, on maintenance therapy (HCC) It was a pleasure to visit with Ms. Hoang. She maintained at stable dose of 16 mg Subutex daily. Patient is currently 14 weeks , experiencing mild cramping. Feeling baby movements regularly.Minimal cravings related to stressful situations in her residential treatment center. Concerns: Anger management and emotional health Last UDS results: as expected Today's Plan: Continue Subutex 16 mg daily with follow-up in 1 week Continue with MAT Clinic Treatment Program and plan of care. Patient Instructions Continue Subutex 8 mg twice daily. Follow up with Melissa on , 04/24/2020, with lab prior. Patient goals: Goals ??? secure housing (pt-stated) - work on securing housing at recovery is happening - this is on hold temporarily due to Covid outbreak - would like to apply for [place] program in the future to secure permament housing for her and rajankyld Total time spent with patient was 35 minutes, greater than 50% of which was counseling/coordination of care, which included review of symptoms, education on medications and side effects, and treatment planning. Melissa Coronado DNP, NICHOLAS, ENAMEL BUFFER [employer] documented in this encounter Miscellaneous Notes Assessment & Plan Note - Melissa Coronado DNP, APRN, MIK - 04/17/2020 11:26 AM CSTAssociated Problem(s): Opioid use disorder, moderate, in early remission, on maintenance therapy (HCC) It was a pleasure to visit with Ms. Hoang. She maintained at stable dose of 16 mg Subutex daily. Patient is currently 14 weeks , experiencing mild cramping. Feeling baby movements regularly.Minimal cravings related to stressful situations in her residential treatment center. Concerns: Anger management and emotional health Last UDS results: as expected Today's Plan: Continue Subutex 16 mg daily with follow-up in 1 week [employer] documented in this encounter Plan of Treatment Not on filedocumented as of this encounter Goals Goal Patient Goal Associated Recent Patient-Stated? Author Type Problems Progress secure housing General Yes Melissa Coronado, JUAN DIEGO, HOOD MAKER, ENAMEL BUFFER Note: Formatting of this note might be d ifferent from the original. - has applied for several housing lists; waiting to hear back, wants to be near family documented as of this encounter Results (ABNORMAL) Controlled Substance Monitoring Panel, Urine (04/24/2020 10:20 AM [facility] [facility]) Component Value Ref Test Analysis Performed At [facility] Range Method Time Signature Amphetamines Negative Cutoff: 04/27/2020 [facility] 500 1:39 PM [facility] ng/mL Barbiturates Negative Cutoff: 04/27/2020 [facility] 200 1:39 PM [facility] ng/mL Cocaine Negative Cutoff: 04/27/2020 [facility] 150 1:39 PM [facility] ng/mL Phencyclidine, Mec Negative Cutoff: 04/27/2020 [facility] 25 ng/mL 1:39 PM [facility] Tetrahydrocannabinol Negative Cutoff: 04/27/2020 [facility] 50 ng/mL 1:39 PM [facility] Comment: ADDITIONAL INFORMATIO N This report is intended for use in clini wilfred monitoring or management of patients. ??It is not inte nded for use in employment-related testing. Codeine Not Detected Cutoff: 25 ng/mL 04/27/2020 1:39 PM [facility] Comment: Tylenol 3 Ltrciko-2-uzfx-glucuronide Not Detected Cutoff: 100 04/27/19 21 [facility] ng/mL 1:39 PM [facility] Comment: Metabolite of codeine Morphine Urine Not Detected Cutoff: 25 04/27/2020 1:39 PM [facility] ng/mL [facility] Comment: Emilia Perry, MS Contin; Also a minor metabolite (10%) of codeine and can be seen in low concentra tions (<2,000 ng/mL) with poppy seed ingestion. Elsualdg-5-ysio-glucuronide Not Detected Cutoff: 100 021 [facility] ng/mL 1:39 PM [facility] Comment: Metabolite of morphine 6-monoacetylmorphine Not Detected Cutoff: 25 04/27/2020 1:39 [facility] ng/mL PM [facility] Comment: Metabolite of heroin Hydrocodone Not Detected Cutoff: 25 ng/mL 04/27/2020 1:39 PM [facility] Comment: Lortab, [place], Vicodin; Also a very phoenix r metabolite of codeine and impurity (<1%) of oxycodone. Norhydrocodone Not Detected Cutoff: 25 04/27/2020 1:39 PM [facility] ng/mL [facility] Comment: Metabolite of hydrocodone Dihydrocodeine Not Detected Cutoff: 25 04/27/2020 1:39 PM [facility] ng/mL [facility] Comment: Metabolite of hydrocodone Hydromorphone Not Detected Cutoff: 25 ng/mL 04/27/2020 1:39 PM [facility] Comment: Dilaudid, Exalgo; Also a metabolite of h ydrocodone and a minor (<5%) metabolite of morphine. Hahfwgpeyvped-7-zaji-glucuronide Not Cutoff: 021 [facility] Detected 100 ng/mL 1:39 PM [facility] Comment: Metabolite of hydromorphone Oxycodone Not Detected Cutoff: 25 ng/mL 04/27/2020 1:39 PM [facility] Comment: Endocet, Percocet, Oxycontin Noroxycodone Not Detected Cutoff: 25 ng/mL 04/27/2020 1:39 P M [facility] Comment: Metabolite of oxycodone Oxymorphone Not Detected Cutoff: 25 ng/mL 04/27/2020 1:39 PM [facility] Comment: Numorphan, Opana; Also a metabolite of o xycodone. Uuqthyjsjax-0-igmu-glucuronide Not Detected Cutoff: 2020 [facility] 100 ng/mL 1:39 PM [facility] Comment: Metabolite of oxymorphone and/or naloxon e (nornaloxone) Noroxymorphone Not Detected Cutoff: 25 04/27/2020 1:39 PM [facility] ng/mL [facility] Comment: Metabolite of oxymorphone and/or naloxon e (nornaloxone) Fentanyl Not Detected Cutoff: 2 ng/mL 04/27/2020 1:39 PM [facility] Comment: Actiq, Duragesic, Fentora Norfentanyl Not Detected Cutoff: 2 ng/mL 04/27/2020 1:39 PM [facility] Comment: Metabolite of fentanyl Meperidine Not Detected Cutoff: 25 ng/mL 04/27/2020 1:39 PM [facility] Comment: Demerol Normeperidine Not Detected Cutoff: 25 ng/mL 04/27/2020 1:39 PM [facility] Comment: Metabolite of meperidine Naloxone Not Detected Cutoff: 25 ng/mL 04/27/2020 1:39 PM [facility] Comment: Narcan Xxrohzpi-2-ptca-glucuronide Not Detected Cutoff: 100 021 [facility] ng/mL 1:39 PM [facility] Comment: Metabolite of naloxone Methadone Not Detected Cutoff: 25 ng/mL 04/27/2020 1:39 PM [facility] Comment: Dolophine EDDP Not Detected Cutoff: 25 ng/mL 04/27/2020 1:39 PM C [facility] Comment: Metabolite of methadone Propoxyphene Not Detected Cutoff: 25 ng/mL 04/27/2020 1:39 P [facility] Comment: Darvon, Darvocet Norpropoxyphene Not Detected Cutoff: 25 04/27/2020 1:39 PM [facility] ng/mL [facility] Comment: Metabolite of propoxyphene Tramadol Not Detected Cutoff: 25 ng/mL 04/27/2020 1:39 PM [facility] Comment: Tradol, Ultram, Ultracet O-desmethyltramadol Not Detected Cutoff: 25 04/27/2020 1:39 [facility] ng/mL PM [facility] Comment: Metabolite of tramadol Tapentadol Not Detected Cutoff: 25 ng/mL 04/27/2020 1:39 PM [facility] Comment: Nucynta N-desmethyltapentadol Not Detected Cutoff: 50 04/27/2020 1:3 9 [facility] ng/mL PM [facility] Comment: Metabolite of tapentadol Sceotvsjnv-yaxt-zfokcgriewk Not Detected Cutoff: 100 021 [facility] ng/mL 1:39 PM [facility] Comment: Metabolite of tapentadol Buprenorphine Present (A) Cutoff: 5 ng/mL 04/27/2020 1:39 PM [facility] Comment: Buprenex, Suboxone Norbuprenorphine Present (A) Cutoff: 5 ng/mL 04/27/2020 1:39 PM [facility] Comment: Metabolite of buprenorphine Norbuprenorphine Present (A) Cutoff: 20 04/27/2020 1:39 [facility] glucuronide ng/mL PM [facility] Comment: Metabolite of buprenorphine Opioid Interpretation - 04/27/2020 1:39 PM [facility] [facility] Comment: Test detected the presence of [...] Administration. Creatinine, Urine 227.8 mg/dL 04/27/2020 1:39 [facility] Specific Justin, 1.025 04/27/2020 1:39 [facility] Urine [facility] pH, Urine 5.6 04/27/2020 1:39 [facility] Oxidants Negative Cutoff: 200 04/27/2020 1:39 [facility] mg/L PM [facility] Comment Normal 04/27/2020 1:39 [facility] Alprazolam Not Detected Cutoff: 10 04/27/2020 1:39 [facility] ng/mL PM [facility] Comment: Xanax Alpha-Hydroxyalprazolam UR Not Detected Cutoff: 10 [facility] ng/mL 1:39 PM [facility] Comment: Metabolite of Alprazolam Alpha-Hydroxyalprazolam Not Detected Cutoff: 50 04/27/2020 [facility] Glucuronide ng/mL 1:39 PM [facility] Comment: Metabolite of Alprazolam Chlordiazepoxide Not Detected Cutoff: 10 04/27/2020 1:39 [facility] ng/mL PM [facility] Comment: Librium Clobazam Not Detected Cutoff: 10 ng/mL 04/27/2020 1:39 PM [facility] Comment: Frisium, Onfi N-Desmethylclobazam Not Detected Cutoff: 200 04/27/2020 1:39 [facility] ng/mL PM [facility] Comment: Metabolite of Clobazam Clonazepam Lvl Not Detected Cutoff: 04/27/2020 1:39 PM [facility] ng/mL [facility] Comment: Klonopin, Rivotril 7-Aminoclonazepam Not Detected Cutoff: 04/27/2020 1:39 [facility] ng/mL PM [facility] Comment: Metabolite of Clonazepam Diazepam UR Not Detected Cutoff: 04/27/2020 1:39 PM [facility] ng/mL [facility] Comment: Valium Nordiazepam Not Detected Cutoff: 10 ng/mL 04/27/2020 1:39 PM [facility] Comment: Metabolite of Chlordiazepoxide, Diazepam , or Prazepam. Flunitrazepam Not Detected Cutoff: 10 ng/mL 04/27/2020 1:39 PM [facility] Comment: Rohypnol 7-Aminoflunitrazepam Not Detected Cutoff: 04/27/2020 1:39 [facility] ng/mL PM [facility] Comment: Metabolite of Flunitrazepam Flurazepam Not Detected Cutoff: 10 ng/mL 04/27/2020 1:39 PM [facility] Comment: Dalmane 2- hydroxy ethyl Not Detected Cutoff: 04/27/2020 1:39 [facility] flurazepam ng/mL PM [facility] Comment: Metabolite of Flurazepam Lorazepam Not Detected Cutoff: 10 ng/mL 04/27/2020 1:39 PM M [facility] Comment: Ativan Lorazepam Not Detected Cutoff: 50 04/27/2020 1:39 [facility] Glucuronide ng/mL PM [facility] Comment: Metabolite of Lorazepam Midazolam Not Detected Cutoff: 10 ng/mL 04/27/2020 1:39 PM [facility] Comment: Versed Alpha-Hydroxy Not Detected Cutoff: 10 04/27/2020 1:39 [facility] Midazolam ng/mL PM [facility] Comment: Metabolite of Midazolam Oxazepam Not Detected Cutoff: 10 ng/mL 04/27/2020 1:39 PM [facility] Comment: Serax; Also a metabolite of Chlordiazepo xide, Diazepam, or Temazepam. Oxazepam Not Detected Cutoff: 50 04/27/2020 1:39 [facility] Glucuronide ng/mL PM [facility] Comment: Metabolite of Oxazepam Prazepam, urine Not Detected Cutoff: 10 04/27/2020 1:39 PM [facility] ng/mL [facility] Comment: Centrax Temazepam Not Detected Cutoff: 10 ng/mL 04/27/2020 1:39 PM [facility] Comment: Restoril; Also a metabolite of Diazepam. Temazepam Not Detected Cutoff: 50 04/27/2020 1:39 [facility] Glucuronide ng/mL PM [facility] Comment: Metabolite of Temazepam Triazolam Not Detected Cutoff: 10 ng/mL 04/27/2020 1:39 PM [facility] Comment: Halcion Alpha-Hydroxy Not Detected Cutoff: 10 04/27/2020 1:39 [facility] Triazolam ng/mL PM [facility] Comment: Metabolite of Triazolam Zolpidem Not Detected Cutoff: 10 ng/mL 04/27/2020 1:39 PM [facility] Comment: Ambien Zolpidem Not Detected Cutoff: 10 04/27/2020 1:39 [facility] Mdkawp-1-Yvsxpewqls acid ng/mL PM [facility] LABOR ATORIES Comment: Metabolite of Zolpidem Benzodiazepine, Interp - 04/27/2020 1:39 P M [facility] [facility] Comment: [...] Food and Drug Administration. Test Performed by: [facility] [address] [address] Location Manager: Benigno Selby M.D. Ph. D.; CLIA# [id number] List patient's Not provided 04/27/2020 1:39 PM [facility] [facility] LABORATORIES Comment: ADDITIONAL INFORMATIO N Accuracy and completeness of declared me dications on reports solely dependent on information submitted by client. Specimen Anatomical Collection Method Collection Time Receive d Time (Source) Location / / Volume Laterality Urine 04/24/2020 10:20 04/24/2020 AM [facility] [facility] 12:58 PM [facility] Melissa Coronado DNP, HOOD MAKER, ENAMEL BUFFER LAB URINE ORDERABLES Performing Organization Address City/State/ZIP Code Phon e Number [facility] see result attachment for specific address (ABNORMAL) Controlled Substance Monitoring Panel, Urine (04/17/2020 10:29 AM [facility] [facility]) Component Value Ref Test Analysis Performed At [facility] Range Method Time Signature Amphetamines Negative Cutoff: 04/19/2020 [facility] 500 3:11 PM [facility] ng/mL Barbiturates Negative Cutoff: 04/19/2020 [facility] 200 3:11 PM [facility] ng/mL Cocaine Negative Cutoff: 04/19/2020 [facility] 150 3:11 PM [facility] ng/mL Phencyclidine, Mec Negative Cutoff: 04/19/2020 [facility] 25 ng/mL 3:11 PM [facility] Tetrahydrocannabinol Negative Cutoff: 04/19/2020 [facility] 50 ng/mL 3:11 PM [facility] Comment: ADDITIONAL INFORMATIO N This report is intended for use in clini wilfred monitoring or management of patients. ??It is not inte nded for use in employment-related testing. Codeine Not Detected Cutoff: 25 ng/mL 04/19/2020 3:11 PM M [facility] Comment: Tylenol 3 Qiratfg-9-edzo-glucuronide Not Detected Cutoff: 100 04/19/19 21 [facility] ng/mL 3:11 PM [facility] Comment: Metabolite of codeine Morphine Urine Not Detected Cutoff: 25 04/19/2020 3:11 PM [facility] ng/mL [facility] Comment: Emilia Perry, MS Contin; Also a minor metabolite (10%) of codeine and can be seen in low concentra tions (<2,000 ng/mL) with poppy seed ingestion. Xjyexyqn-7-dorm-glucuronide Not Detected Cutoff: 100 021 [facility] ng/mL 3:11 PM [facility] Comment: Metabolite of morphine 6-monoacetylmorphine Not Detected Cutoff: 25 04/19/2020 3:11 [facility] ng/mL PM [facility] Comment: Metabolite of heroin Hydrocodone Not Detected Cutoff: 25 ng/mL 04/19/2020 3:11 PM [facility] Comment: Lortab, [place], Vicodin; Also a very [place] r metabolite of codeine and impurity (<1%) of oxycodone. Norhydrocodone Not Detected Cutoff: 25 04/19/2020 3:11 PM [facility] ng/mL [facility] Comment: Metabolite of hydrocodone Dihydrocodeine Not Detected Cutoff: 25 04/19/2020 3:11 PM [facility] ng/mL [facility] Comment: Metabolite of hydrocodone Hydromorphone Not Detected Cutoff: 25 ng/mL 04/19/2020 3:11 PM [facility] Comment: Dilaudid, Exalgo; Also a metabolite of h ydrocodone and a minor (<5%) metabolite of morphine. Zxdnuntdytnkc-0-dxig-glucuronide Not Cutoff: 021 [facility] Detected 100 ng/mL 3:11 PM [facility] Comment: Metabolite of hydromorphone Oxycodone Not Detected Cutoff: 25 ng/mL 04/19/2020 3:11 PM [facility] Comment: Endocet, Percocet, Oxycontin Noroxycodone Not Detected Cutoff: 25 ng/mL 04/19/2020 3:11 P [facility] Comment: Metabolite of oxycodone Oxymorphone Not Detected Cutoff: 25 ng/mL 04/19/2020 3:11 PM [facility] Comment: Numorphan, Opana; Also a metabolite of o xycodone. Ntjwymiytjs-6-qwkj-glucuronide Not Detected Cutoff: 2020 [facility] 100 ng/mL 3:11 PM [facility] Comment: Metabolite of oxymorphone and/or naloxon e (nornaloxone) Noroxymorphone Not Detected Cutoff: 25 04/19/2020 3:11 PM [facility] ng/mL [facility] Comment: Metabolite of oxymorphone and/or naloxon e (nornaloxone) Fentanyl Not Detected Cutoff: 2 ng/mL 04/19/2020 3:11 PM [facility] Comment: Actiq, Duragesic, [place]ent[place] Norfentanyl Not Detected Cutoff: 2 ng/mL 04/19/2020 3:11 PM [facility] Comment: Metabolite of fentanyl Meperidine Not Detected Cutoff: 25 ng/mL 04/19/2020 3:11 PM [facility] Comment: Demerol Normeperidine Not Detected Cutoff: 25 ng/mL 04/19/2020 3:11 PM [facility] Comment: Metabolite of meperidine Naloxone Not Detected Cutoff: 25 ng/mL 04/19/2020 3:11 PM [facility] Comment: Narcan Rijssnmh-4-ftpr-glucuronide Not Detected Cutoff: 100 021 [facility] ng/mL 3:11 PM [facility] Comment: Metabolite of naloxone Methadone Not Detected Cutoff: 25 ng/mL 04/19/2020 3:11 PM [facility] Comment: Dolophine EDDP Not Detected Cutoff: 25 ng/mL 04/19/2020 3:11 PM C [facility] Comment: Metabolite of methadone Propoxyphene Not Detected Cutoff: 25 ng/mL 04/19/2020 3:11 P M [facility] Comment: Darvon, Darvocet Norpropoxyphene Not Detected Cutoff: 25 04/19/2020 3:11 PM [facility] ng/mL [facility] Comment: Metabolite of propoxyphene Tramadol Not Detected Cutoff: 25 ng/mL 04/19/2020 3:11 PM [facility] Comment: Tradol, Ultram, Ultracet O-desmethyltramadol Not Detected Cutoff: 25 04/19/2020 3:11 [facility] ng/mL PM [facility] Comment: Metabolite of tramadol Tapentadol Not Detected Cutoff: 25 ng/mL 04/19/2020 3:11 PM [facility] Comment: Nucynta N-desmethyltapentadol Not Detected Cutoff: 50 04/19/2020 3:1 1 [facility] ng/mL [facility] Comment: Metabolite of tapentadol Crzzlkpyvl-oayc-khfjfzycyku Not Detected Cutoff: 100 021 [facility] ng/mL 3:11 PM [facility] Comment: Metabolite of tapentadol Buprenorphine Present (A) Cutoff: 5 ng/mL 04/19/2020 3:11 PM [facility] Comment: Buprenex, Suboxone Norbuprenorphine Present (A) Cutoff: 5 ng/mL 04/19/2020 3:11 PM [facility] Comment: Metabolite of buprenorphine Norbuprenorphine Present (A) Cutoff: 20 04/19/2020 3:11 [facility] glucuronide ng/mL PM [facility] Comment: Metabolite of buprenorphine Opioid Interpretation - 04/19/2020 3:11 PM [facility] Comment: Test detected the presence of [...] Administration. Creatinine, Urine 193.6 mg/dL 04/19/2020 3:11 [facility] PM [facility] Specific Justin, 1.024 04/19/2020 3:11 [facility] Urine PM [facility] pH, Urine 5.8 04/19/2020 3:11 [facility] PM [facility] Oxidants Negative Cutoff: 200 04/19/2020 3:11 [facility] mg/L PM [facility] Comment Normal 04/19/2020 3:11 [facility] PM [facility] Alprazolam Not Detected Cutoff: 04/19/2020 3:11 [facility] ng/mL PM [facility] Comment: Xanax Alpha-Hydroxyalprazolam UR Not Detected Cutoff: [facility] ng/mL 3:11 PM [facility] Comment: Metabolite of Alprazolam Alpha-Hydroxyalprazolam Not Detected Cutoff: 50 04/19/2020 [facility] Glucuronide ng/mL 3:11 PM [facility] Comment: Metabolite of Alprazolam Chlordiazepoxide Not Detected Cutoff: 04/19/2020 3:11 [facility] ng/mL PM [facility] Comment: Librium Clobazam Not Detected Cutoff: 10 ng/mL 04/19/2020 3:11 PM [facility] Comment: Frisium, Onfi N-Desmethylclobazam Not Detected Cutoff: 200 04/19/2020 3:11 [facility] ng/mL PM [facility] Comment: Metabolite of Clobazam Clonazepam Lvl Not Detected Cutoff: 04/19/2020 3:11 PM [facility] ng/mL [facility] Comment: Klonopin, Rivotril 7-Aminoclonazepam Not Detected Cutoff: 04/19/2020 3:11 [facility] ng/mL [facility] Comment: Metabolite of Clonazepam Diazepam UR Not Detected Cutoff: 04/19/2020 3:11 PM [facility] Quant ng/mL [facility] Comment: Valium Nordiazepam Not Detected Cutoff: 10 ng/mL 04/19/2020 3:11 PM [facility] Comment: Metabolite of Chlordiazepoxide, Diazepam , or Prazepam. Flunitrazepam Not Detected Cutoff: 10 ng/mL 04/19/2020 3:11 PM [facility] Comment: Rohypnol 7-Aminoflunitrazepam Not Detected Cutoff: 04/19/2020 3:11 [facility] ng/mL PM [facility] Comment: Metabolite of Flunitrazepam Flurazepam Not Detected Cutoff: 10 ng/mL 04/19/2020 3:11 PM [facility] Comment: Dalmane 2- hydroxy ethyl Not Detected Cutoff: 10 04/19/2020 3:11 [facility] flurazepam ng/mL PM [facility] Comment: Metabolite of Flurazepam Lorazepam Not Detected Cutoff: 10 ng/mL 04/19/2020 3:11 PM [facility] Comment: Ativan Lorazepam Not Detected Cutoff: 50 04/19/2020 3:11 [facility] Glucuronide ng/mL PM [facility] Comment: Metabolite of Lorazepam Midazolam Not Detected Cutoff: 10 ng/mL 04/19/2020 3:11 PM [facility] Comment: Versed Alpha-Hydroxy Not Detected Cutoff: 10 04/19/2020 3:11 [facility] Midazolam ng/mL PM [facility] Comment: Metabolite of Midazolam Oxazepam Not Detected Cutoff: 10 ng/mL 04/19/2020 3:11 PM [facility] Comment: Serax; Also a metabolite of Chlordiazepo xide, Diazepam, or Temazepam. Oxazepam Not Detected Cutoff: 50 04/19/2020 3:11 [facility] Glucuronide ng/mL PM [facility] Comment: Metabolite of Oxazepam Prazepam, urine Not Detected Cutoff: 10 04/19/2020 3:11 PM [facility] ng/mL [facility] Comment: Centrax Temazepam Not Detected Cutoff: 10 ng/mL 04/19/2020 3:11 PM [facility] Comment: Restoril; Also a metabolite of Diazepam. Temazepam Not Detected Cutoff: 50 04/19/2020 3:11 [facility] Glucuronide ng/mL PM [facility] Comment: Metabolite of Temazepam Triazolam Not Detected Cutoff: 10 ng/mL 04/19/2020 3:11 PM [facility] Comment: Halcion Alpha-Hydroxy Not Detected Cutoff: 10 04/19/2020 3:11 [facility] Triazolam ng/mL PM [facility] Comment: Metabolite of Triazolam Zolpidem Not Detected Cutoff: 10 ng/mL 04/19/2020 3:11 PM [facility] Comment: Ambien Zolpidem Not Detected Cutoff: 10 04/19/2020 3:11 [facility] Kkwhwb-1-Yifdzcczll acid ng/mL PM [facility] Comment: Metabolite of Zolpidem Benzodiazepine, Interp - 04/19/2020 3:11 P M [facility] Comment: No benzodiazepines were detected. The [...] Food and Drug Administration. Test Performed by: [place] [id number] Location Manager: Benigno Selby M.D. Ph. D.; CLIA# [id number] List patient's Not provided 04/19/2020 3:11 PM [facility] Comment: ADDITIONAL INFORMATIO N Accuracy and completeness of declared me dications on reports solely dependent on information submitted by client. Specimen Anatomical Collection Method Collection Time Receive d Time (Source) Location / / Volume Laterality Urine 04/17/2020 10:29 04/17/2020 AM [facility] 11:23 AM [facility] Melissa Coronado DNP, HOOD MAKER, ENAMEL BUFFER LAB URINE ORDERABLES Performing Organization Address City/State/ZIP Code Phon e Number [facility] see result attachment for specific address documented in this encounter Visit Diagnoses Diagnosis Opioid use disorder, moderate, in early remission, on maintenance therapy (HCC) - Primary documented in this encounter Care Teams Van 

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
--- OUTSIDE RECORDS SUMMARY | 2022-01-14 01:47 | XMS_ITS | Encounter Summary ---
:1990 Author Organization [facility] Address [address] [place] [address] Care Team Providers Name Role Phone None, Pcp Primary Care Provider Unavailable Reason for Referral Consultation (Routine) - Closed Specialty Diagnoses / Procedures Referred By Contact Refer red To Contact Conversion Man Diagnoses Opioid use disorder, moderate, in early remission, on maintenance therapy (HCC) Pooja Astorga, [facility] Conversion Man [address] [place] [address] [place] [address] [place] [address] Phone: [phone] Referral ID Status Reason Start Date Expiration Date Visits Requ ested Visits Authorized [id number] Closed 04/23/2020 04/23/2021 1 1 Scheduling Instructions In teen challenge. Highly motivated to s chiki clean. ACTION WORKER Reason for Visit Reason Comments Routine Visit Encounter Details Date Type Department Care Team Description 04/23/2020 Routine [facility] Gauri, Neeta constipation (Primary Dx); [facility] Pooja Baez MD Supervision of high risk , ante ; Nursing Attendant 0 Fourth Opioid use disorder, moderat e, in early remission, on maintenance therapy (HCC) [address] [place] [address] [phone] Social History Tobacco Use Types Packs/Day [...] 03/21/2020 relatives? How often do you attend presybeterian or bahai Not asked 03/21/2020 services? Do you belong to any clubs or organizations such as Argelia schilling 03/21/2020 presybeterian groups, unions, fraternal or athletic groups, or [...] with No / Unsure 04/01/2020 8:38 PM ATTRACTION WORKER someone who was confirmed or suspected to have Coronavirus / COVID-19? documented as of this encounter Last Filed Vital Signs Vital Sign Reading Time Taken Comments Blood Pressure 102/60 04/23/2020 1:03 PM ATTRACTION WORKER Pulse - - Temperature - - Respiratory Rate - - Oxygen Saturation - - Inhaled Oxygen Concentration - - Weight 81 kg (178 lb 9.6 oz) 04/23/2020 1:03 PM ATTRACTION WORKER Height - - Body Mass Index 30.12 04/10/2020 3:24 PM ATTRACTION WORKER documented in this encounter Patient Instructions Patient Jose Flowers, NURSING CARE PARTNER - 04/23/2020 1:20 PM CST OB16 Who to Call Please contact the OBGYN department at [phone] if you experience vaginal bleeding, vaginal spotting, abnormal vaginal discharge,, or have any questions/concerns. Ultrasound Your ultrasound will be performed in the Department of Radiology. Please make sure to come to this appointment 15 minutes before your scheduled time, and to have a full bladder when you come. You may have one adult come with you to your appointment. No children are allowed in the ultrasound room. Results IF you had lab tests today, or an ultrasound, the results will be reviewed with you at your next routine OB visit and/or will be sent to you via [employer] We will get in touch with you directly if any of the results are abnormal, or more testing is needed. Classes Group Classes and Center Tours ARE NOT BEING OFFERED CURRENTLY due to the Coronaviruspandemic. Here is a link to a short [employer] video tour of our beautiful Center: [email or web address] [facility] has a brand new digital education platform just for you! [place] [employer]?? offers anytime, anywhere, parent education designed to give you convenient access to valuable, research-based information on care, labor and , care, , and care, including lots of videos! [employer]?? can also provide you with unique tools like a kick counter, contraction timer, personal journal, and more. How to get access to Act[employer]??: 1. [place] for the program by going to: [email or web address] _[email or web address] and filling out the form. ??? After you have completed the registration, [employer] will send you an email from [email or web address] providing you with your login and password information. ??? Please note: the email will come from [place] [employer] and not [facility]. If you do not receive a confirmation, be sure to check your email's TripleLift folder. 2. After you have created your account, you can access [employer] in two ways: 1. Download the free mobile talia from your talia store. Search ???Act[employer].?? 2. Login on the Act[employer] website: [email or web address]. COVID-19 (Coronavirus) We understand your concern about COVID-19 (Coronavirus). PLEASE READ. You are responsible for this information. To keep you and your family safe, we have the following recommendations: ??? Wash your hands often with soap and water for at least 20 seconds. ??? If you can't use soap and water, please use alcohol-based hand under presser, like Purell. ??? Cough into your elbow, NOT your hands. ??? Avoid touching your eyes, nose, and mouth. ??? Try to avoid being around people who are sick. ??? If you are sick, please stay home from school, work, and other activities. ??? If you are sick or have had contact with a person who has COVID-19: ??? Call the [facility] Nurse Triage line at [phone] during normal clinic hours. ??? After clinic hours, use the [facility] Emergency Room if you are ill and [...] As of November 03 2019, everyone in [place] must wear a face covering in stores and indoor gathering places. ??? Using even a simple cloth face covering can slow the spread of the virus and help people who mayhave the virus and do not know it from giving it to others. As of March 05, 2020, [facility] has implemented a ???No Visitor?? policy for the most part. These restrictions are in place to protect everyone - patients, visitors and staff - from COVID-19. [facility] patients may have another person with them ONLY for the following situations: ?? ONE other adult may come with you for your ???OB?? or anatomy ultrasound at around 20 weeks of . ?? ONE support person may stay with you during your whole stay on the Center when you deliver. ?? A Certified Roller Repairer may also be with you when you [...] an appointment. o Call us first at [phone]. ??? You must wear a mask while inside the [facility]. ??? Do NOT bring anyone [...] the Center without calling us first - [phone]. ??? Come in the [facility] doors, like you do for [...] more information about COVID-19 in and ? https://www.acog.org/patient-resources/faqs//ttluyiseqsp-dkhfzjxfh-pwa- ACTION WORKER documented in this encounter Progress Notes Pooja Astorga MD - 04/23/2020 1:20 PM CST Patient overall doing well. Negative OB review of systems. No COVID-19 symptoms. Reviewed problem list. Awaiting [facility] recs. Reviewed COVID-19 precautions. Recommended mask at any in clinic visit or admission to center. Discussed weight. Weight gain likely secondary to recovery. Will continue to watch. Encourage patient to make sure to read after visit summary. Rods today. Planning on rods at allclinic visits. Patient highly motivated to avoid use of opioids or other medications. Moving to recovery house in the next week. We did discuss patient's weight gain. She notes that she gained a significant amount of weight at the beginning of secondary to stopping drugs. Plan to continue to monitor closely. ACTION WORKER documented in this encounter Plan of Treatment Not on filedocumented as of this encounter Goals Goal Patient Goal Associated Recent Patient-Stated? Author Type Problems Progress secure housing General Yes Melissa Coronado, DNP, ELASTIC ATTACHER CHAINSTITCH, STORM WINDOW INSTALLER Note: Formatting of this note might be d ifferent from the original. - has applied for several housing lists; waiting to hear back, wants to be near family documented as of this encounter Results (ABNORMAL) Rapid drug screen, urine (04/23/2020 1:57 PM ATTRACTION WORKER) athologist Signature Rapid Urine ----- 04/23/2020 [facility] Drug Screen 1:57 PM [facility] Comment: This is a screening test. ??Positive res ults should be considered presumptive and are sent to [facility] for confirmation. This test is not for legal purposes - on medical. Tetrahydrocannabinol NOT DETECTED Not Detected 04/23/2020 4: 18 [facility] Phencyclidine, Mec NOT DETECTED Not Detected 04/23/2020 4:18 [facility] Cocaine NOT DETECTED Not Detected 04/23/2020 4:18 [facility] Methamphetamine NOT DETECTED Not Detected 04/23/2020 4:18 [facility] Opiates NOT DETECTED Not Detected 04/23/2020 4:18 [facility] Amphetamines NOT DETECTED Not Detected 04/23/2020 4:18 [facility] Benzodiazepines NOT DETECTED Not Detected 04/23/2020 4:18 [facility] TCA, Urine NOT DETECTED Not Detected 04/23/2020 4:18 [facility] Methadone NOT DETECTED Not Detected 04/23/2020 4:18 [facility] Barbiturates NOT DETECTED Not Detected 04/23/2020 4:18 [facility] Oxycodone NOT DETECTED Not Detected 04/23/2020 4:18 [facility] Propoxyphene NOT DETECTED Not Detected 04/23/2020 4:18 [facility] Buprenorphine DETECTED (A) Not Detected 04/23/2020 4:18 [facility] AT[facility] Comment: Sent to [facility] for GC/MS confirmation. Detectable Levels ----- 04/23/2020 1:57 PM ATTRACTION WORKER [facility] Comment: Amphetamines ?500 ng/ mL [...] Location / / Volume Laterality Urine (Urine, 04/23/2020 1:57 PM 04/23/19 21 3:47 Clean Catch) ATTRACTION WORKER PM ATTRACTION WORKER Pooja Astorga MD LAB URINE ORDERABLES Performing Organization Address City/State/ZIP Code Phon e Number [facility] [address] [place] [address] documented in this encounter Visit Diagnoses Diagnosis Other constipation - Primary Supervision of high risk , ante Opioid use disorder, moderate, in early remission, on maintenance therapy (HCC) documented in this encounter Care Teams Clinical Data Specialist Relationship Specialty Start Date End Date None, Pcp PCP - General Furniture Salesperson 02/06/[address] [place] [address] documented as of this encounter
--- OUTSIDE RECORDS SUMMARY | 2022-01-14 01:47 | XMS_ITS | Encounter Summary ---
:1990 Author Organization [facility] Address [address] [place] [address] Care Team Providers Name Role Phone None, Pcp Primary Care Provider Unavailable Encounter Details Date Type Department Care Team Description 04/23/2020 Lab [facility] Lab Opioid use disorder, moderat e, [address] [facility] in early remission[place] [address] maintenance therapy ([facility]) [phone] Social History Tobacco Use Types Packs/Day Years [...] How often do you attend hindu or mormonism Not asked 03/21/2020 services? Do [...] with No / Unsure 04/01/2020 8:38 PM MANAGER AIR someone who was confirmed or suspected to have Coronavirus / COVID-19? documented as of this encounter Plan of Treatment Not on filedocumented as of this encounter Goals Goal Patient Goal Associated Recent Patient-Stated? Author Type Problems Progress secure housing General Yes Melissa Coronado, DNP, MAT PACKER, AIRPLANE PATROL PILOT Note: Formatting of this note might be d ifferent from the original. - has applied for several housing lists; waiting to hear back, wants to be near family documented as of this encounter Procedures Procedure Name Priority Date/Time Associated Comments Diagnosis BUPRENORPHINE Routine 04/23/2020 1:57 PM Opioid use Results for this CONFIRMATION MANAGER AIR disorder, moderate, procedur e are in in early remission, the resu lts on maintenance section. therapy (HCC) RAPID DRUG SCREEN, Routine 04/23/2020 1:57 PM Opioid use Res ults for this URINE MANAGER AIR disorder, moderate, procedur e are in in early remission, the resu lts on maintenance section. therapy (HCC) documented in this encounter Results Buprenorphine conf. (04/23/2020 1:57 PM MANAGER AIR) [facility] gist Method Time Signature Buprenorphine see below 04/28/2020 [facility] 7:03 PM MANAGER AIR LAB[facility] Comment: See scanned [facility] Report. Specimen Anatomical Collection Method Collection Time Receive d Time (Source) Location / / Volume Laterality 04/23/2020 1:57 PM 3:47 MANAGER AIR PM MANAGER AIR Pooja Astorga MD LAB URINE ORDERABLES Performing Organization Address City/State/ZIP Code Phon e Number [facility] [address] [place] [address] (ABNORMAL) Rapid drug screen, urine (04/23/2020 1:57 PM [facility]) athologist Signature Rapid Urine ----- 04/23/2020 [facility] Drug Screen 1:57 PM [facility] Comment: This is a screening test. ??Positive res ults should be considered presumptive and are sent to [facility] for confirmation. This test is not for legal purposes - on medical. Tetrahydrocannabinol NOT DETECTED Not Detected 04/23/2020 4: 18 [facility] Phencyclidine, Mec NOT DETECTED Not Detected 04/23/2020 4:18 [facility] Cocaine NOT DETECTED Not Detected 04/23/2020 4:18 [facility] Methamphetamine NOT DETECTED Not Detected 04/23/2020 4:18 [facility] Opiates NOT DETECTED Not Detected 04/23/2020 4:18 [facility] Amphetamines NOT DETECTED Not Detected 04/23/2020 4:18 [facility] Benzodiazepines NOT DETECTED Not Detected 04/23/2020 4:18 [facility] TCA, Urine NOT DETECTED Not Detected 04/23/2020 4:18 [facility] Methadone NOT DETECTED Not Detected 04/23/2020 4:18 [facility] Barbiturates NOT DETECTED Not Detected 04/23/2020 4:18 [facility] Oxycodone NOT DETECTED Not Detected 04/23/2020 4:18 [facility] Propoxyphene NOT DETECTED Not Detected 04/23/2020 4:18 [facility] Buprenorphine DETECTED (A) Not Detected 04/23/2020 4:18 [facility] Comment: Sent to [facility] for GC/MS confirmation. Detectable Levels ----- 04/23/2020 1:57 PM [facility] Comment: Amphetamines ?500 [...] Laterality Urine (Urine, 04/23/2020 1:57 PM 04/23/19 3:47 Clean Catch) MANAGER AIR PM MANAGER AIR Pooja Astorga MD LAB URINE ORDERABLES Performing Organization Address City/State/ZIP Code Phon e Number [facility] [address] [place] [address] documented in this encounter Visit Diagnoses Diagnosis Opioid use disorder, moderate, in early remission, on maintenance therapy (HCC) documented in this encounter Care Teams Unit Trust Manager Relationship Specialty Start Date End Date None, Pcp PCP - General Metal Window Frame Maker 02/06/[address] [place] [address] documented as of this encounter
--- OUTSIDE RECORDS SUMMARY | 2022-01-14 01:48 | XMS_ITS | Encounter Summary ---
:1990 Author Organization Address [address] [place] [address] Care Team Providers Name Role Phone None, Pcp Primary Care Provider Unavailable Reason for Visit Reason Onset Date Comments CRITICAL LAB 03/26/2019 Encounter Details Date Type Department Care Team Description 03/26/2019 Telephone Asthma & Allergy Boby Byrne MD CRITICAL LAB [address] [facility] [address] [place] [address] [place], [place] [phone] (Wo rk) Social History Tobacco Use Types Packs/Day Years Used Date Former Smoker Cigarettes Smokeless Tobacco: Never Used Alcohol Habits Answer Date Recorded How often do you have a drink containing alcohol? Monthly or less 05/26/2021 How many drinks containing alcohol do you have on a 1 or 2 05/26/2021 typical day when you are drinking? How often do you have six or more drinks on one Never 05/26/2021 occasion? Comment: Not asked Social Isolation Answer Date Recorded In a typical week, how many times do you talk on Not asked 03/21/2020 the phone with family, friends, or neighbors? How often do you get together with friends or Not asked 03/21/2020 relatives? How often do you attend sabianist or jewish Not asked 03/21/2020 services? Do you belong to any clubs or organizations such as Not askbreanne schilling 03/21/2020 sabianist groups, unions, fraternal or [...] or slept in a longterm (including now)? Sex Assigned at Date Recorded Not on file documented as of this encounter Miscellaneous Notes Telephone Encounter - Lilian Galindo PA-C - 03/26/2019 6:02 PM CST I have ordered Hepatitis C viral load to determine if patient has active disease or not. OFFICER ASSISTANT Telephone Encounter - Ahmet Lamar RN - 03/26/2019 4:28 PM CST Lab calls to report positive Hepatitis C. Patient is a Resident at [employer]. [facility] form completed and faxed. Please advise if any recommendations in Dr. Byrne's absence, thank you. OFFICER ASSISTANT documented in this encounter Plan of Treatment Not on filedocumented as of this encounter Visit Diagnoses Not on filedocumented in this encounter Care Teams Separator Operator Shellfish Meats Relationship Specialty Start Date End Date None, Pcp PCP - General Professor Of Vegetable Science 02/06/[address] [place] [phone] documented as of this encounter
--- OUTSIDE RECORDS SUMMARY | 2022-01-14 01:48 | XMS_ITS | Encounter Summary ---
:1990 Author Organization [facility] Address [address] [place] [address] Care Team Providers Name Role Phone None, Pcp Primary Care Provider Unavailable Encounter Details Date Type Department Care Team Description 05/14/2019 Orders Only SE Asthma & Allergy Boby Byrne MD Screening examination [address] [facility] [address] [facility] [place] [address] SE (Primary Dx) [phone] [place] [address] Social History Tobacco Use Types Packs/Day Years Used Date Former Smoker Cigarettes Smokeless Tobacco: Never Used Alcohol Use Standard Drinks/Week Comments Not Currently 0 (1 standard drink = 0.6 oz pure alcoho l) Alcohol Habits Answer Date Recorded How often [...] 03/21/2020 relatives? How often do you attend moravian or amish Not asked 03/21/2020 services? Do you belong to any clubs or organizations such as Argelia schilling 03/21/2020 moravian groups, unions, fraternal or athletic groups, or [...] or slept in a residential (including now)? Sex Assigned at Date Recorded Not on file documented as of this encounter Plan of Treatment Not on filedocumented as of this encounter Visit Diagnoses Diagnosis Screening examination for infectious dis ease - Primary Screening examination for unspecified in fectious disease documented in this encounter Care Teams Visual C Developer Relationship Specialty Start Date End Date None, Pcp PCP - General Activities Therapist 02/06/19 [address] [place] [address] documented as of this encounter
--- OUTSIDE RECORDS SUMMARY | 2022-01-14 01:48 | XMS_ITS | Encounter Summary ---
:1990 Author Organization [facility] Address [address] [place] [address] Care Team Providers Name Role Phone None, Pcp Primary Care Provider Unavailable Encounter Details Date Type Department Care Team Description 03/26/2019 Orders Only SE Internal Medicine Lilian Galindo, Positive hepatitis C [address] PA-C antibody test ([place] [address] Dx) [phone] [place] [address] Social History Tobacco Use Types [...] 03/21/2020 relatives? How often do you attend yarsanism or scientology Not asked 03/21/2020 services? Do you belong to any clubs or organizations such as Not chinmay schilling 03/21/2020 yarsanism groups, unions, fraternal or athletic groups, or [...] or slept in a fdc (including now)? Sex Assigned at Date Recorded Not on file documented as of this encounter Plan of Treatment Not on filedocumented as of this encounter Procedures Procedure Name Priority Date/Time Associated Diagnosis Comme nts ADD-ON TEST REQUEST STAT 03/26/2019 6:01 PM Positive hepati tis C Results for this CRYPTOGRAPHER antibody test procedure are in the results section. documented in this encounter Results Add-On Test Request (03/26/2019 6:01 PM CRYPTOGRAPHER) [facility] gist Method Time Signature Add-on Testing SEE BELOW 03/26/2019 [place] 6:44 PM [facility] Comment: HCVQU added to previous order. Specimen Anatomical Collection Method Collection Time Receive d Time (Source) Location / / Volume Laterality 03/26/2019 6:01 PM 9 6:01 CRYPTOGRAPHER PM CRYPTOGRAPHER Lilian Galindo PA-C LAB BLOOD ORDERABLES Performing Organization Address City/State/ZIP Code Phon e Number [facility] [address] [place] [address] documented in this encounter Visit Diagnoses Diagnosis Positive hepatitis C antibody test - [place] person documented in this encounter Care Teams Life Agent Relationship Specialty Start Date End Date None, Pcp PCP - General Porcelain Technician 02/06/[address] [place] [address] documented as of this encounter
--- OUTSIDE RECORDS SUMMARY | 2022-01-14 01:48 | XMS_ITS | Encounter Summary ---
:1990 Author Organization [facility] Address [address] [place] [address] Care Team Providers Name Role Phone None, Pcp Primary Care Provider Unavailable Reason for Referral Consultation (Routine) - Closed Specialty Diagnoses / Procedures Referred By Contact Refer red To Contact Neurology Diagnoses Carotid artery disorder (HCC) Boby Byrne MD [address] [place] [phone] Referral ID Status Reason Start Date Expiration Date Visits V isits Requested Authorized [id number] Closed Specialty 04/23/2019 10/20/2019 1 1 Services Required Scheduling Instructions Please call the Neurology Cloth Examiner desk at [phone] to schedule an appointment. onsultation (Routine) - Closed Specialty Diagnoses / Procedures Referred By Contact Refer red To Contact Gastroenterology Diagnoses Irritable bowel syndrome with constipation Boby Byrne MD [address] [place] [phone] Referral ID Status Reason Start Date Expiration Date Visits V isits Requested Authorized [id number] Closed Specialty 04/23/2019 04/23/2020 1 1 Services Required SCALE WORKER Reason for Visit Reason Comments Med Management Consultation (Routine) - Closed Specialty Diagnoses / Procedures Referred By Contact Refer red To Contact Family Medicine Diagnoses Constipation, unspecified constipation type Anjali Gan PA [address] [place] [address] Referral ID Status Reason Start Date Expiration Date Visits V isits Requested Authorized [id number] Closed Specialty 04/18/2019 04/18/2020 1 1 Services Required Encounter Details Date Type Department Care Team Description 04/23/2019 Office Visit SE Asthma & Allergy Boby Byrne MD Chemical dependency (HCC) (Primary Dx); [address] Irritable bowel syndrome wit h constipation; [place] [address] Carotid artery disorder (HCC) [phone] [place] [address] Social History Tobacco Use Types [...] How often do you attend restorationism or yazidism Not asked 03/21/2020 services? Do you belong [...] or slept in a chcf (including now)? Sex Assigned at Date Recorded Not on file documented as of this encounter Last Filed Vital Signs Vital Sign Reading Time Taken Comments Blood Pressure 115/82 04/23/2019 10:46 AM ROLL SCALE WORKER Pulse 87 04/23/2019 10:46 AM ROLL SCALE WORKER Temperature 36.8 ??C (98.3 ??F) 04/23/2019 10:46 AM ROLL SCALE WORKER Respiratory Rate 16 04/23/2019 10:46 AM ROLL SCALE WORKER Oxygen Saturation - - Inhaled Oxygen Concentration - - Weight 73.1 kg (161 lb 2.5 oz) 04/23/2019 10:46 AM ROLL SCALE WORKER Height 166 cm (5' 5.35) 04/23/2019 10:46 AM ROLL SCALE WORKER Body Mass Index 26.53 04/23/2019 10:46 AM ROLL SCALE WORKER documented in this encounter Progress Notes Boby Byrne MD - 04/23/2019 10:50 AM CST Estab Patient Visit Subjective Patient ID: Anjali Hoang is a 29 y.o. female. Chief Complaint Patient presents with ??? Med Management History of Present Illness HPI The patient is a resident at [facility]. Long-term care program. Patient does have a history of irritable bowel syndrome. Irritable bowel syndrome with constipation.At one time the patient was on Amitiza. This actually helped. However her insurance is no longer covering this medication. Has struggled with constipation. Has been seen in acute care. Emergency room. P atient open to seeing gastroenterology. Patient states that she never did recommendeded gastroscopy or colonoscopy. Patient also was admitted to [facility] with strokelike symptoms February 01 and . 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 Has been maintained on aspirin. No further symptoms. Reviewed care everywhere. Recommend follow-up from January was 3 months. Neurology. Possible furtherimaging. That will be set up for the patient. Review of Systems Review of Systems Per the history of present illness. The patient denied any other active medical problems or concerns. Allergies Sulfa antibiotics Medications Current Outpatient Medications: ??? acetaminophen (TYLENOL) 500 MG tablet, Take 1,000 mg by mouth every 6 (six) hours if needed for mild pain, Disp: , Rfl: ??? albuterol HFA (VENTOLIN HFA) 108 (90 Base) MCG/ACT inhaler, Inhale 2 puffs every 4 (four) hours if needed for wheezing or shortness of breath, Disp: 18 g, Rfl: 1 ??? aspirin 325 MG tablet, Take 325 mg by mouth 1 (one) time each day, Disp: , Rfl: ??? atomoxetine (STRATTERA) 80 MG capsule, Take 1 capsule (80 mg total) by mouth 1 (one) time each day, Disp: 30 capsule, Rfl: 2 ??? docusate sodium (COLACE) 100 MG capsule, Take 100 mg by mouth 1 (one) time each day, Disp: , Rfl: ??? DULoxetine (CYMBALTA) [address] capsule, Take 1 capsule (30 mg total) by mouth 1 (one) time each day Do not crush or chew., Disp: 30 capsule, Rfl: 2 ??? gabapentin (NEURONTIN) 300 MG capsule, Take one capsule (300mg) at 8 a.m. and 1 p.m. and 2 capsules (600mg) every QHS., Disp: 120 capsule, Rfl: 1 ??? ibuprofen (ADVIL,MOTRIN) 200 MG tablet, Take 600 mg by mouth every 6 (six) hours if needed for mild pain Take 600 mg q6h PRN, Disp: , Rfl: ??? nicotine (NICODERM CQ) 21 MG/24HR, Place 1 patch on the skin 1 (one) time each day at the same time (Patient not taking: Reported on 04/18/2019), Disp: 30 patch, Rfl: 1 ??? nicotine (NICODERM CQ) 7 MG/24HR, Place 1 patch on the skin 1 (one) time each day at the same time, Disp: 30 patch, Rfl: 1 Current Facility-Administered Medications: ??? Naltrexone (VIVITROL) injectible suspension reconstituted suspension 380 mg, 380 mg, Intramuscular, q28 days, Boby Byrne MD, 380 mg at 03/13/19 1105 The following portions of the patient's chart were reviewed in this encounter and updated as appropriate: Tobacco Allergies Meds Problems Med Hx Surg Hx Fam Hx Objective Physical Exam Vital signs are as per the chart Physical examination in general patient pleasant no apparent distress Assessment/Plan Diagnoses and all orders for this visit: Chemical dependency (HCC) Irritable bowel syndrome with constipation - Ambulatory referral to Gastroenterology Carotid artery disorder (HCC) - Ambulatory referral to Neurology Plans as noted above. SCALE WORKER documented in this encounter Plan of Treatment Scheduled Referrals Name Type Priority Associated Order Schedule Diagnoses Ambulatory referral to Outpatient Routine Irritable bowel Or dered: Gastroenterology Referral syndrome with 04/23/2019 constipation Ambulatory referral to Outpatient Routine Carotid artery Ord ered: Neurology Referral disorder (HCC) 04/23/2019 documented as of this encounter Visit Diagnoses Diagnosis Chemical dependency (HCC) - Primary Unspecified drug dependence, unspecified abuse Irritable bowel syndrome with constipati on Irritable bowel syndrome Carotid artery disorder (HCC) documented in this encounter Care Teams Acute Care Registered Nurse Relationship Specialty Start Date End Date None, Pcp PCP - General Line Staker 02/06/[address] [place] [phone] documented as of this encounter
--- OUTSIDE RECORDS SUMMARY | 2022-01-14 01:48 | XMS_ITS | Encounter Summary ---
:1990 Author Organization [facility] Address [address] [place] [address] Care Team Providers Name Role Phone None, Pcp Primary Care Provider Unavailable Encounter Details Date Type Department Care Team Description 03/26/2019 Lab SE Lab Screening examination for [address] [facility] [place] [address] Social History Tobacco Use Types Packs/Day Years [...] How often do you attend episcopalian or uatsdin Not asked 03/21/2020 services? Do you belong to any clubs or organizations such as Not askbreanne schilling 03/21/2020 episcopalian groups, unions, fraternal or [...] or slept in a detention (including now)? Sex Assigned at Date Recorded Not on file documented as of this encounter Progress Notes Boby Byrne MD - 03/26/2019 11:00 AM CST Quantitative hepatitis C testing is negative. This indicates that she had hepatitis C but that it has resolved. Her body was able to fight it off naturally. All other test negative or normal. ATION NURSE documented in this encounter Plan of Treatment Not on filedocumented as of this encounter Procedures Procedure Name Priority Date/Time Associated Diagnosis Comme nts HEPAT. PROF., Routine 03/26/2019 11:03 Screening Results fo r this CHRONIC, TYPE AM LACTATION NURSE examination for procedure a re in UNKNOWN infectious disease the resul ts section. M.TUBERCULOSIS BY Routine 03/26/2019 11:03 Screening Result s for this QUANTIFERON, B AM LACTATION NURSE examination for procedure are in infectious disease the resul ts section. HCV RNA Routine 03/26/2019 11:03 Results for this DETECT/QUANT, S AM LACTATION NURSE procedure ar e in the results section. HEPATITIS A Routine 03/26/2019 11:03 Screening Results for this ANTIBODY, TOTAL AM LACTATION NURSE examination for procedure are in infectious disease the resul ts section. HIV-1 AND HIV-2 Routine 03/26/2019 11:03 Screening Results for this ANTIBODIES AM LACTATION NURSE examination for procedure ar e in infectious disease the resul ts section. documented in this encounter Results HCV RNA detect/quant, serum (03/26/2019 11:03 AM LACTATION NURSE) [facility] Method Time Signature HCV RNA Undetected Undetected 03/28/2019 [facility] Detect/Quant IU/mL 1:12 PM LACTATION NURSE LABORATORIES , S Comment: Result in log IU/mL is Undetected. ADDITIONAL INFORMATIO N The quantification range of this assay i s 15 to 100,000,000 IU/mL (1.18 log to 8.00 log IU/mL). Test ing was performed using the seth HCV test ([employer] with the seth [employer] System. Test Performed by: [facility] [address] [place] [address] Particle Board Supervisor: Benigno Selby M.D. Ph. D.; CLIA# [id number] Specimen Anatomical Collection Method Collection Time Receive d Time (Source) Location / / Volume Laterality 03/26/2019 11:03 03/26/2019 6:55 AM LACTATION NURSE PM LACTATION NURSE Boby Byrne MD LAB BLOOD ORDERABLES Performing Organization Address City/State/ZIP Code Phon e Number [facility] see result attachment for specific address M.tuberculosis by QuantiFERON, B (03/26/2019 11:03 AM LACTATION NURSE) [facility] Method Time Signature M.tuberculosi Negative Negative 03/28/2019 [facility] by 12:27 PM [facility] QuantiFERON, B Comment: No interferon-gamma response to M. tuber culosis antigens was detected. Infection with M. tubercul osis is unlikely. A single negative result does not exclud e infection with M. tuberculosis. In patients at high ris k for M.tuberculosis infection, a second test should be consi dered in accordance with the 2017 ATS/IDSA/CDC Clinical Prac indigo Guidelines for Diagnosis of Tuberculosis in Adults and Children [Lewinsohn DM et. al. Clin. Infect. Dis. 2017;64(2):111-115]. The reference range for the 'TB1 Ag shelly s Nil Result' and 'TB2 Ag minus Nil Result' is an Inte rferon-gamma level <0.35 IU/mL. TB1 Ag minus Nil 0.01 IU/mL 03/28/2019 12:27 PM LACTATION NURSE [facility] Result TB2 Ag minus Nil 0.01 IU/mL 03/28/2019 12:27 PM LACTATION NURSE [facility] Result Mitogen minus Nil 9.13 IU/mL 03/28/2019 12:27 PM CS T [facility] [address] Result Nil Result 0.02 IU/mL 03/28/2019 12:27 PM LACTATION NURSE [facility] Comment: Test Performed by: [facility] [address] [facility] [place] [address] Particle Board Supervisor: Benigno Selby M.D. Ph. D.; CLIA# [id number] Specimen Anatomical Collection Method Collection Time Receive d Time (Source) Location / / Volume Laterality Blood 03/26/2019 11:03 03/27/2019 2:45 AM LACTATION NURSE PM LACTATION NURSE Boby Byrne MD LAB BLOOD ORDERABLES Performing Organization Address City/State/ZIP Code Phon e Number [facility] see result attachment for specific address HIV-1 and HIV-2 antibodies (03/26/2019 11:03 AM LACTATION NURSE) P athologist Signature HIV-1/HIV-2 NON-REACTI Non-Reacti 03/26/2019 MICHAEL VE ve 4:20 PM [facility] Comment: The results from [...] (Source) Location / / Volume Laterality Blood 03/26/2019 11:03 03/26/2019 1:39 AM LACTATION NURSE PM LACTATION NURSE Narrative [facility] - 03/11 4:20 PM LACTATION NURSE Called to Ahmet Willard with pos HCVO, rb a , , 16:20 03/26/2019 RAR01 Boby Byrne MD LAB BLOOD ORDERABLES Performing Organization Address City/State/ZIP Code Phon e Number [facility] [address] [place] [address] (ABNORMAL) Hepat. Prof., Chronic, Type Unknown (03/26/2019 11:03 AM LACTATION NURSE) Patholo gist Method Time Signature Hep. Bs NON-REACTI 03/26/2019 MICHAEL Antigen VE 3:01 PM [facility] (HBsAg) LABORATORY Comment: The results from [...] observations indicate the need for additional testing. HBs Antibody REACTIVE SEE BELOW 03/26/2019 4:[address] [facility] Comment: A reactive result indicates that the pat ient is immune to HBV infection. Hep B Core Total see below Non-Reactive 03/26/2019 4:[address] [facility] Comment: NON-REACTIVE All results should be used in conjunctio n with other hepatitis B serological markers to deter mine patient's disease state. The results from this or any other [...] observations indicate the need for additional testing. Hepatitis C REACTIVE (AA) Non-Reactive 03/26/2019 4:20 PM [facility] Antibody [facility] Comment: REPORTABLE DISEASE Agent. Must be report ed to [facility] within 1 working day. ??(Department rece iving report is responsible for filling out [facility]-Disease Report Card). It is recommended by the CDC that reacti ve screening results be followed by supplemental testing with a more specific assay, such as recombinant immunoblot assay [RI BA] or RNA testing by PCR. The results from this or any other [...] (Source) Location / / Volume Laterality Blood 03/26/2019 11:03 03/26/2019 1:39 AM LACTATION NURSE PM LACTATION NURSE Narrative [facility] - 03/11 4:20 PM LACTATION NURSE Called to Ahmet Lamar with pos TANOO rb a , , 16:20 03/26/2019 RAR01 Boby Byrne MD LAB BLOOD ORDERABLES Performing Organization Address [facility]/ZIP Code Phon e Number [facility] [address] [place] [address] Hepatitis A antibody, total (03/26/2019 11:03 AM LACTATION NURSE) [facility] Method Time Signature Hep A Total Ab see below SEE BELOW 03/26/2019 KIRON 4:20 PM [facility] Comment: NON-REACTIVE Biotin levels in serum remain elevated f or up to 24 hours after oral or intravenous biotin administration and ma y interfere with this assay to produce unreliable results. A reactive result indicates current or p revious infection or immunity to HAV from vaccination. To determine if current infection is pre sent, testing for HAV IgM antibodies should be requested. Specimen Anatomical Collection Method Collection Time Receive d Time (Source) Location / / Volume Laterality Blood 03/26/2019 11:03 03/26/2019 1:39 AM LACTATION NURSE PM LACTATION NURSE Narrative [facility] - 03/11 4:20 PM LACTATION NURSE Called to Ahmet Lamar with pos TANOO rb a , , 16:20 03/26/2019 RAR01 Boby Byrne MD LAB BLOOD ORDERABLES Performing Organization Address [facility] Phon e Number [facility] [address] [place] [address] documented in this encounter Visit Diagnoses Diagnosis Screening examination for infectious dis ease Screening examination for unspecified in fectious disease documented in this encounter Care Teams Manager Field Service Relationship Specialty Start Date End Date None, Pcp PCP - General Lifeline Representatives 02/06/19 [address] [facility] [place] [address] documented as of this encounter
--- OUTSIDE RECORDS SUMMARY | 2022-01-14 01:48 | XMS_ITS | Encounter Summary ---
:1990 Author Organization [facility] Address [address] [place] [address] Care Team Providers Name Role Phone None, Pcp Primary Care Provider Unavailable Reason for Visit Reason Onset Date Comments nausea medication 03/28/2020 Encounter Details Date Type Department Care Team Description 03/28/2020 Telephone [facility] Women's Health Pooja Astorga n ausea medication [facility] Ob /Photography Coordinator MD [address] [place] [address] [address] [place] [address] [place], [place] [phone] ( rk) Social History Tobacco Use Types [...] 03/21/2020 relatives? How often do you attend rastafari or latter-day Not asked 03/21/2020 services? Do you belong to any clubs or organizations such as Argelia schilling 03/21/2020 rastafari groups, unions, fraternal or athletic groups, or [...] been in contact with No / Unsure 03/21/2020 1:12 PM FRUIT GROWER someone who was confirmed or suspected to have Coronavirus / COVID-19? documented as of this encounter Miscellaneous Notes Telephone Encounter - Lisa Alcantara RN - 03/28/2020 3:34 PM CST nurse Pari from [facility] (RUDOLPH on file) calls stating, The patient cannot take unisom here while in our facility. Is there something else she can take instead? I was going to check with our food stand manager to see why she can't take Unisom. She said it was helping her with sleep also.Reviewed OTC medications patient can take for sleep as well as OTC measures patient can try for nausea. Reviewed with nurse that we really need to speak with the patient to triage her symptoms to see what recommendations would be best. Nurse states she will have patient call back to discuss symptoms. No other questions or concerns at this time. T GROWER Telephone Encounter - Vanessa Issa RN - 03/28/2020 3:14 PM CST Anabella from [facility] called to report that Anjali is not permitted to take Unisomwhile she is staying at their facility. They asked that something else be prescribed for her to take. RN asked to speak to Anjali to discuss her nausea, Anabella stated that she is in another building, she had just been asked to call via an e-mail. RN asked to have Anjali call STEAM BO[employer]ER [employer]REMAN and for the nurse at their facility to advise [facility] or what prescriptions would be permitted for nausea, if needed. Will await call back from Anjali. T GROWER documented in this encounter Plan of Treatment Not on filedocumented as of this encounter Visit Diagnoses Not on filedocumented in this encounter Care Teams Tapper Hand Relationship Specialty Start Date End Date None, Pcp PCP - General Foreign Broadcast Specialist 02/06/19 [address] [place] [address] documented as of this encounter
--- OUTSIDE RECORDS SUMMARY | 2022-01-14 01:48 | XMS_ITS | Encounter Summary ---
:1990 Author Organization [facility] Address [address] [place] [address] Care Team Providers Name Role Phone None, Pcp Primary Care Provider Unavailable Reason for Visit Reason Comments Constipation last BM one week ago Encounter Details Date Type Department Care Team Description 03/20/2019 Office Visit [facility] Acute [facility] GabeVaughn, Other constipation [address] PA-C (Primary Dx) [address] [phone] [place] [address] Social History Tobacco Use Types [...] How often do you attend anglican or confucianism Not asked 03/21/2020 services? Do you belong [...] [place] ([place] now)? Sex Assigned at Date Recorded Not on file documented as of this encounter Last Filed Vital Signs Vital Sign Reading Time Taken Comments Blood Pressure 119/79 03/20/2019 11:53 AM ELECTRIC RELAY TESTER Pulse 105 03/20/2019 11:53 AM ELECTRIC RELAY TESTER Temperature 36.3 ??C (97.3 ??F) 03/20/2019 11:53 AM ELECTRIC RELAY TESTER Respiratory Rate 18 03/20/2019 11:53 AM ELECTRIC RELAY TESTER Oxygen Saturation 97% 03/20/2019 11:53 AM ELECTRIC RELAY TESTER Inhaled Oxygen Concentration - - Weight 71.2 kg (157 lb) 03/20/2019 11:53 AM ELECTRIC RELAY TESTER Height - - Body Mass Index 26.16 02/06/2019 10:08 AM CDT documented in this encounter Patient Instructions Patient InstructionsVaughn Bernal PA-C - 03/20/2019 11:45 AM CST 1) Dump whole bottle of MiraLax in juice or water 2) Drink 8 ounces every 20 minutes until substantial bowel movement 3) Re-evaluation if no improvement in 24 hours TRIC RELAY TESTER documented in this encounter Progress Notes Vaughn Bernal PA-C - 03/20/2019 11:45 AM CST Chief Complaint: Constipation HPI: Very pleasant 28-year-old female presents for the aforementioned issue in the setting of chemical dependency, currently resident at [facility]. She states that she has not had a bowel movement in 1 week. Apparently she carries diagnosis of chronic constipation and irritable bowel syndrome, without the patient completing work-up up at [facility]. She denies dysuria, significant perianal pain, vomiting, rectal bleeding, signifi cant abdominal pain, abdominal surgery history. She states that she takes 17 g of MiraLAX daily, andtries to have high-fiber diet and plenty of fluid intake. Vital Signs: Reviewed. Medications: Reviewed. Allergies: Reviewed. PMH and PSH: Reviewed. Physical Exam: General: An alert, well-appearing, pleasant, nondiaphoretic, calm 28-year-old female in no observed distress. Her: Regular rhythm and heart rate 105. Lungs: Nonlabored breathing. Assessment/Plan: 1. Constipation I elected not to do digital rectal exam today, since patient did not sense that there was a significant amount of stool in the rectal vault, and she had no perineal discomfort. I gave patient aggressive bowel regimen with MiraLAX, and wrote instructions down for the patient. Favor emergency evaluationif symptoms are refractory. Did not do KUB x-ray, since management would not change. TRIC RELAY TESTER documented in this encounter Plan of Treatment Not on filedocumented as of this encounter Visit Diagnoses Diagnosis Other constipation - Primary documented in this encounter Care Teams Electronics Recycler Relationship Specialty Start Date End Date None, Pcp PCP - General Regional Sales Representative 02/06/19 [address] [place] [address] documented as of this encounter
--- OUTSIDE RECORDS SUMMARY | 2022-01-14 01:48 | XMS_ITS | Encounter Summary ---
:1990 Author Organization [facility] Address [address] [place] [address] Care Team Providers Name Role Phone None, Pcp Primary Care Provider Unavailable Encounter Details Date Type Department Care Team Description 03/26/2020 Lab [facility] History of hepatitis C virus infection; [address] [facility] Supervision of high risk pre gnancy, antepartum; [place] [address] Combined drug dependence, co ntinuous abuse (HCC) [phone] Social History Tobacco Use Types Packs/Day Years [...] 03/21/2020 relatives? How often do you attend christian or buddhist Not asked 03/21/2020 services? Do you belong to any clubs or organizations such as Argelia schilling 03/21/2020 christian groups, unions, fraternal or athletic groups, or [...] with No / Unsure 03/21/2020 1:12 PM TRAINING PROFESSIONAL someone who was confirmed or suspected to have Coronavirus / COVID-19? documented as of this encounter Plan of Treatment Not on filedocumented as of this encounter Procedures Procedure Name Priority Date/Time Associated Comments Diagnosis BUPRENORPHINE Routine 03/26/2020 9:45 AM Combined drug Results for this CONFIRMATION TRAINING PROFESSIONAL dependence, procedure are i n continuous abuse the results (HCC) section. URINE SCREEN Routine 03/26/2020 9:45 AM Supervision of high Re sults for this TRAINING PROFESSIONAL risk , procedure ar e in antepartum the results section. RAPID DRUG SCREEN, Routine 03/26/2020 9:45 AM Combined drug Re sults for this URINE TRAINING PROFESSIONAL dependence, procedure are i n continuous abuse the results (HCC) section. ANTIBODY SCREEN (GEL) Routine 03/26/2020 9:42 AM Supervision o f high Results for this TRAINING PROFESSIONAL risk , procedure ar e in antepartum the results section. ABO/RH (GEL) Routine 03/26/2020 9:42 AM Supervision of high Re sults for this TRAINING PROFESSIONAL risk , procedure ar e in antepartum the results section. HEPATITIS C ANTIBODY Routine 03/26/2020 9:42 AM Supervision of high Results for this TRAINING PROFESSIONAL risk , procedure ar e in antepartum the results section. RPR Routine 03/26/2020 9:42 AM Supervision of high Re sults for this TRAINING PROFESSIONAL risk , procedure ar e in antepartum the results section. HIV-1 AND HIV-2 Routine 03/26/2020 9:42 AM Supervision of high Results for this ANTIBODIES TRAINING PROFESSIONAL risk , procedure ar e in antepartum the results section. HEPATITIS B SURFACE Routine 03/26/2020 9:42 AM Supervision of high Results for this ANTIGEN TRAINING PROFESSIONAL risk , procedure ar e in antepartum the results section. ALT Routine 03/26/2020 9:42 AM History of Results f or this TRAINING PROFESSIONAL hepatitis C virus procedure are in infection the results section. AST Routine 03/26/2020 9:42 AM History of Results f or this TRAINING PROFESSIONAL hepatitis C virus procedure are in infection the results section. documented in this encounter Results Buprenorphine conf. (03/26/2020 9:45 AM TRAINING PROFESSIONAL) [facility] Method Time Signature Buprenorphine see below 03/31/2020 [facility] 9:08 AM TRAINING PROFESSIONAL [facility] Comment: See scanned [facility] Report. Specimen Anatomical Collection Method Collection Time Receive d Time (Source) Location / / Volume Laterality 03/26/2020 9:45 AM 0 TRAINING PROFESSIONAL 10:08 AM TRAINING PROFESSIONAL Monica Delgado MD LAB URINE ORDERABLES Performing Organization Address City/State/ZIP Code Phon e Number [facility] [address] [facility] [place] [address] Urine Screen (03/26/2020 9:45 AM TRAINING PROFESSIONAL) [facility] Method Time [facility] Urine Screen <10,000 03/27/2020 [place] cfu/ml No 6:53 AM [facility] further ID. LABORATORY Specimen Anatomical Collection Method Collection Time Receive d Time (Source) Location / / Volume Laterality Urine (Urine, 03/26/2020 9:45 AM 03/26/20 20 Clean Catch) TRAINING PROFESSIONAL 10:08 AM TRAINING PROFESSIONAL Comment: URINE SCREEN Narrative [facility] - 03/11 6:53 AM TRAINING PROFESSIONAL Patient does not have an Amoxicillin or PCN allergy Monica Delgado MD LAB MICROBIOLOGY - GENERAL O RDERABLES Performing Organization Address City/State/ZIP Code Phon e Number [facility] [address] [place] [address] (ABNORMAL) Rapid drug screen, urine (03/26/2020 9:45 AM TRAINING PROFESSIONAL) athologist Signature Rapid Urine ----- 03/26/2020 [facility] Screen 9:47 AM [facility] Comment: This is a screening test. ??Positive res ults should be considered presumptive and are sent to [facility] for confirmation. This test is not for legal purposes - on medical. Tetrahydrocannabinol NOT DETECTED Not Detected 03/26/2020 10:43 [facility] Phencyclidine, Mec NOT DETECTED Not Detected 03/26/2020 10:4 3 [facility] Cocaine NOT DETECTED Not Detected 03/26/2020 10:43 [facility] Methamphetamine NOT DETECTED Not Detected 03/26/2020 10:43 [facility] Opiates NOT DETECTED Not Detected 03/26/2020 10:43 [facility] Amphetamines NOT DETECTED Not Detected 03/26/2020 10:43 [facility] Benzodiazepines NOT DETECTED Not Detected 03/26/2020 10:43 [facility] TCA, Urine NOT DETECTED Not Detected 03/26/2020 10:43 [facility] Methadone NOT DETECTED Not Detected 03/26/2020 10:43 [facility] Barbiturates NOT DETECTED Not Detected 03/26/2020 10:43 [facility] Oxycodone NOT DETECTED Not Detected 03/26/2020 10:43 [facility] Propoxyphene NOT DETECTED Not Detected 03/26/2020 10:43 [facility] Buprenorphine DETECTED (A) Not Detected 03/26/2020 10:43 [facility] Comment: Sent to [facility] for GC/MS confirmation. Detectable Levels ----- 03/26/2020 9:47 [facility] Comment: Amphetamines ?500 ng/ mL [...] Location / / Volume Laterality Urine (Urine, 03/26/2020 9:45 AM 03/26/20 20 Clean Catch) TRAINING PROFESSIONAL 10:08 AM TRAINING PROFESSIONAL Monica Delgado MD LAB URINE ORDERABLES Performing Organization Address City/[facility]/ZIP Code Phon e Number [facility] [address] [place] [phone] ABO/Rh (Gel) (03/26/2020 9:42 AM TRAINING PROFESSIONAL) athologist Signature ABO/Rh B POS 03/26/2020 [facility] 11:09 AM TRAINING PROFESSIONAL [facility] Specimen Anatomical Collection Method Collection Time Receive d Time (Source) Location / / Volume Laterality Blood (Blood, 03/26/2020 9:42 AM 03/26/20 20 Venous) TRAINING PROFESSIONAL 10:08 AM TRAINING PROFESSIONAL Monica Delgado MD LAB BLOOD BANK TEST ORDERABL ES Performing Organization Address City/[facility]/ZIP Code Phon e Number [facility] [address] [place] [phone] Antibody Screen (Gel) (03/26/2020 9:42 AM TRAINING PROFESSIONAL) P athologist Signature Antibody NEG 03/26/2020 [facility] Screen 11:09 AM TRAINING PROFESSIONAL [facility] Specimen Anatomical Collection Method Collection Time Receive d Time (Source) Location / / Volume Laterality Blood (Blood, 03/26/2020 9:42 AM 03/26/20 20 Venous) TRAINING PROFESSIONAL 10:08 AM TRAINING PROFESSIONAL Authorizing Provider Result Katherine Delgado MD LAB BLOOD BANK TEST ORDERABL ES Performing Organization Address City/[facility]/ZIP Code Phon e Number [facility] [address] [place] [phone] (ABNORMAL) Hepatitis C antibody (03/26/2020 9:42 AM TRAINING PROFESSIONAL) [facility] gist Method Time Signature Hepatitis C REACTIVE Non-React 03/26/2020 [facility] Antibody (AA) nadia 2:47 PM [facility] Comment: REPORTABLE DISEASE Agent. Must be report ed to [facility] within 1 working day. ??(Department rece iving report is responsible for filling out [facility]-Disease Report Card). It is recommended by the [facility] that reacti ve screening results be followed [...] (Source) Location / / Volume Laterality Blood 03/26/2020 9:42 AM 0 TRAINING PROFESSIONAL 10:08 AM TRAINING PROFESSIONAL Narrative [facility] - 03/11 2:47 PM TRAINING PROFESSIONAL Called to Celeste Pettit with REACTIVE HCV .RBA , , 14:47 03/26/2020 [facility] Monica Delgado MD LAB BLOOD ORDERABLES Performing Organization Address City/State/ZIP Code Phon e Number [facility] [address] [place] [phone] Hepatitis B surface antigen (03/26/2020 9:42 AM TRAINING PROFESSIONAL) [facility] Method Time Signature Hep. Bs NON-REACTI 03/26/2020 [facility] Antigen VE 12:54 PM [facility] (HBsAg) LABORATORY Comment: The results from [...] (Source) Location / / Volume Laterality Blood 03/26/2020 9:42 AM 0 TRAINING PROFESSIONAL 10:08 AM TRAINING PROFESSIONAL Monica Delgado MD LAB BLOOD ORDERABLES Performing Organization Address City/[facility] Code Phon e Number [facility] [address] [place], [place] [id number] HIV-1 and HIV-2 antibodies (03/26/2020 9:42 AM TRAINING PROFESSIONAL) athologist Signature HIV-1/HIV-2 NON-REACTI Non-Reacti 03/26/2020 [facility] ve 2:50 PM [facility] Comment: The results from [...] Location / / Volume Laterality Blood (Blood, 03/26/2020 9:42 AM 03/26/20 20 Venous) TRAINING PROFESSIONAL 10:08 AM TRAINING PROFESSIONAL [facility] - 03/11 2:50 PM TRAINING PROFESSIONAL Called to Celeste Pettit with REACTIVE HCV .RBA , , 14:47 03/26/2020 [facility] Monica Delgado MD LAB BLOOD ORDERABLES Performing Organization Address City/[facility]/ZIP Code Phon e Number [facility] [address] [place] [phone] RPR (03/26/2020 9:42 AM TRAINING PROFESSIONAL) athologist Signature RPR NON-REACTI Non-reacti 03/27/2020 [facility] ve 7:18 PM [facility] Specimen Anatomical Collection Method Collection Time Receive d Time (Source) Location / / Volume Laterality Blood (Blood, 03/26/2020 9:42 AM 03/26/20 20 Venous) TRAINING PROFESSIONAL 10:08 AM TRAINING PROFESSIONAL Monica Delgado MD LAB BLOOD ORDERABLES Performing Organization Address City/[facility]/ZIP Code Phon e Number [facility] [address] [place] [phone] AST (03/26/2020 9:42 AM TRAINING PROFESSIONAL) P athologist Signature AST 36 8 - 43 U/L 03/26/2020 [facility] 10:29 AM [facility] Specimen Anatomical Collection Method Collection Time Receive d Time (Source) Location / / Volume Laterality Blood (Blood, 03/26/2020 9:42 AM 03/26/20 20 Venous) TRAINING PROFESSIONAL 10:08 AM TRAINING PROFESSIONAL Monica Delgado MD LAB BLOOD ORDERABLES Performing Organization Address [facility] Phon e Number [facility] [address] [place] [phone] ALT (03/26/2020 9:42 AM TRAINING PROFESSIONAL) athologist Signature ALT (SGPT) 19 0 - 34 U/L 03/26/2020 [facility] 10:29 AM [facility] Specimen Anatomical Collection Method Collection Time Receive d Time (Source) Location / / Volume Laterality Blood (Blood, 03/26/2020 9:42 AM 03/26/20 20 Venous) TRAINING PROFESSIONAL 10:08 AM TRAINING PROFESSIONAL Monica Delgado MD LAB BLOOD ORDERABLES Performing Organization Address City/[facility] Phon e Number [facility] [address] [place] [phone] documented in this encounter Visit Diagnoses Diagnosis History of hepatitis C virus infection Supervision of high risk , ante Combined drug dependence, continuous abu se (HCC) documented in this encounter Care Teams Chief Nurse Anesthetist Relationship Specialty Start Date End Date None, Pcp PCP - General Dukey Rider 02[birth year] [address] [place] [address] documented as of this encounter
--- OUTSIDE RECORDS SUMMARY | 2022-01-14 01:48 | XMS_ITS | Encounter Summary ---
:1990 Author Organization [facility] Address [address] [place] [address] Care Team Providers Name Role Phone None, Pcp Primary Care Provider Unavailable Reason for Visit Reason Comments NOB Phone Call Encounter Details Date Type Department Care Team Description 03/21/2020 Office Visit [facility], [facility] Ob /Translator And Interpreter , first trimester [address] [facility] (Primary Dx) [place] [address] Social History Tobacco Use Types [...] How often do you attend denominational or scientology Not asked 03/21/2020 services? Do you belong to any clubs or organizations such as Not chinmay schilling 03/21/2020 denominational groups, unions, fraternal or [...] with No / Unsure 03/21/2020 1:12 PM PHOTOGRAPHY MANAGER someone who was confirmed or suspected to have Coronavirus / COVID-19? documented as of this encounter Last Filed Vital Signs Vital Sign Reading Time Taken Comments Blood Pressure - - Pulse - - Temperature - - Respiratory Rate - - Oxygen Saturation - - Inhaled Oxygen Concentration - - Weight 73 kg (160 lb 15 oz) 03/21/2020 12:59 PM PHOTOGRAPHY MANAGER Height - - Body Mass Index 26.49 04/26/2019 1:41 PM PHOTOGRAPHY MANAGER documented in this encounter Patient Instructions Patient InstructionsAme Hoyt RN - 03/21/2020 1:00 PM CST RN completed NOB phone call. MODERATE-HIGH RISK: (Pt answered 'yes' to Past, 'yes' to , and/or 'yes' to > 2 Ps): The patient was given the 4 Ps screening tool and the score placed the patient into the moderate-high risk zone of use. The positive screening result was forwarded to the provider. Patient reports heroin use up until 03/01/20. Currently on Subutex. Anjali is currently in treatment at [facility] and plans to be there for another 45 days. She has been sober for about three weeks for now. LOPEZ is currently in residential and they are both working on themselves right now and not together. He has a history of drug and alcohol use as well. Both of Anjali's parents and grandparents also have had drug and alcohol abuse issues. She hopes to be accepted into [facility] upon release from her current inpatient program. OB10 Results IF you had lab tests today, or an ultrasound, the results will be reviewed with you at your next routine OB visit and/or will be sent to you via [employer]. We will get in touch with you directly if any of the results are abnormal, or more testing is needed. Who to Call Please contact the OBGYN department at [phone] if you experience vaginal bleeding, vaginal spotting, abnormal vaginal discharge, or have any questions/concerns. Classes Group Classes and Center Tours ARE NOT BEING OFFERED CURRENTLY due to the Coronaviruspandemic. Here is a link to a short YouTube video tour of our beautiful Center: [email or web address] [facility] has a brand new digital education platform just for you! [employer]?? offers anytime, anywhere, parent education designed to give you convenient access to valuable, research-based information on care, labor and , care, , and care, including lots of videos! [employer] can also provide you with unique tools like a kick counter, contraction timer, personal journal, and more. How to get access to [employer]??: 1. Hamel for the program by going to: [email or web address] [email or web address] and filling out the form. ??? After you have completed the registration, [employer] will send you an email from [email or web address] providing you with your login and password information. ??? Please note: the email will come from [facility] and not [facility]. If you do not receive a confirmation, be sure to check your email's spaInfantium folder. 2. After you have created your account, you can access [employer] in two ways: 1. Download the free mobile talia from your talia store. Search ???[employer].?? 2. Login on the [employer] website: [email or web address]. COVID-19 (Coronavirus) We understand your concern about COVID-19 (Coronavirus). PLEASE READ. You are responsible for this information. To keep you and your family safe, we have the following recommendations: ??? Wash your hands often with soap and water for at least 20 seconds. ??? If you can't use soap and water, please use alcohol-based hand brine tank separator operator, like Purell. ??? Cough into your elbow, NOT your hands. ??? Avoid touching your eyes, nose, and mouth. ??? Try to avoid being around people who are sick. ??? If you are sick, please stay home from school, work, and other activities. ??? If you are sick or have had contact with a person who has COVID-19: ??? Call the SOCIAL MEDIA MANAGER Nurse Triage line at [phone] during normal clinic hours. ??? After clinic hours, use the [facility] Emergency Room if you are ill and [...] to others. As of March 05, 2020, [facility] has implemented a ???No Visitor?? policy for the most part. These restrictions are in place to protect everyone - patients, visitors and staff - from COVID-19. SOCIAL MEDIA MANAGER patients may have another person with them ONLY for the following situations: ?? ONE other adult may come with you for your ???OB?? or anatomy ultrasound at around 20 weeks of . ?? ONE support person may stay with you during your whole stay on the Center when you deliver. ?? A Certified Assembler Dry Cell And Battery may also be with you when you [...] an appointment. o Call us first at [phone]. ??? You must wear a mask while inside the [facility]. ??? Do NOT bring anyone with [...] the Center without calling us first - [phone]. ??? Come in the [facility] doors, like you do for appointments. ??? [...] more information about COVID-19 in and ? [email or web address].org/patient-resources/faqs//fehvckpffba-[email or web address]-rke- OGRAPHY MANAGER documented in this encounter Progress Notes Ame Hoyt RN - 03/21/2020 1:00 PM CST RN completed NOB phone call. MODERATE-HIGH RISK: (Pt answered 'yes' to Past, 'yes' to , and/or 'yes' to > 2 Ps): The patient was given the 4 Ps screening tool and the score placed the patient into the moderate-high risk zone of use. The positive screening result was forwarded to the provider. Patient reports heroin use up until 03/01/20. Currently on Subutex. Anjali is currently in treatment at [facility] and plans to be there for another 45 days. She has been sober for about three weeks for now. LOPEZ is currently in residential and they are both working on themselves right now and not together. He has a history of drug and alcohol use as well. Both of Anjali's parents and grandparents also have had drug and alcohol abuse issues. She hopes to be accepted into [facility] upon release from her current inpatient program. She is scheduled for her initial prenatalappointment with Dr. Delgado on 03/26/20 OGRAPHY MANAGER documented in this encounter Plan of Treatment Not on filedocumented as of this encounter Visit Diagnoses Diagnosis care, subsequent , fir st trimester - Primary documented in this encounter Care Teams Disc Inspector Relationship Specialty Start Date End Date None, Pcp PCP - General Ibm Bpm Architect 10/29/19 [address] [place] [address] documented as of this encounter
--- OUTSIDE RECORDS SUMMARY | 2022-01-14 01:48 | XMS_ITS | Encounter Summary ---
:1990 Author Organization [facility] Address [address] [place] [address] Care Team Providers Name Role Phone None, Pcp Primary Care Provider Unavailable Encounter Details Date Type Department Care Team Description 03/15/2019 Orders Only SE Asthma & Allergy Boby Byrne MD Screening examination [address] [facility] [address] [facility] [place] [address] SE (Primary Dx) [phone] [place] [address] Social History Tobacco Use Types [...] How often do you attend voodoo or pentecostalism Not asked 03/21/2020 services? Do you belong to any clubs or organizations such as Not askbreanne schilling 03/21/2020 voodoo groups, unions, fraternal or [...] or slept in a mcc (including now)? Sex Assigned at Date Recorded Not on file documented as of this encounter Plan of Treatment Not on filedocumented as of this encounter Results M.tuberculosis by QuantiFERON, B (03/26/2019 11:03 AM CONTENT ENGINEER) [facility] Method Time Signature M.tuberculosi Negative Negative 03/28/2019 [facility] by 12:27 PM CONTENT ENGINEER LABORATORIES QuantiFERON, B Comment: No interferon-gamma response [...] Diagnosis of Tuberculosis in Adults and Children [Kusumn DM et. al. Clin. Infect. Dis. 2017;64(2):111-115]. The reference range for the 'TB1 Ag shelly s Nil Result' and 'TB2 Ag minus Nil Result' is an Inte rferon-gamma level <0.35 IU/mL. TB1 Ag minus Nil 0.01 IU/mL 03/28/2019 12:27 PM CONTENT ENGINEER [facility] Result TB2 Ag minus Nil 0.01 IU/mL 03/28/2019 12:27 PM CONTENT ENGINEER [facility] Result Mitogen minus Nil 9.13 IU/mL 03/28/2019 12:27 PM CS T [facility] Result Nil Result 0.02 IU/mL 03/28/2019 12:27 PM CONTENT ENGINEER [facility] Comment: Test Performed by: [facility] [address] [address] Hot Stone Setter: Benigno Selby M.D. Ph. D.; CLIA# [id number] Specimen Anatomical Collection Method Collection Time Receive d Time (Source) Location / / Volume Laterality Blood 03/26/2019 11:03 03/27/2019 2:45 AM CONTENT ENGINEER PM CONTENT ENGINEER Boby Byrne MD LAB BLOOD ORDERABLES Performing Organization Address City/State/ZIP Code Phon e Number [facility] see result attachment for specific address Hepatitis A antibody, total (03/26/2019 11:03 AM CONTENT ENGINEER) [facility] Method Time [facility] Hep A Total Ab see below SEE BELOW 03/26/2019 [place] 4:20 PM [facility] Comment: NON-REACTIVE Biotin levels in [...] Laterality Blood 03/26/2019 11:03 03/26/2019 1:39 AM CONTENT ENGINEER PM CONTENT ENGINEER Narrative [facility] - 03/11 4:20 PM CONTENT ENGINEER Called to Ahmet Lamar with pos HCVO, rb a , , 16:20 03/26/2019 RAR01 Boby Byrne MD LAB BLOOD ORDERABLES Performing Organization Address City/State/ZIP Code Phon e Number [facility] [address] [place] [address] (ABNORMAL) Hepat. Prof., Chronic, Type Unknown (03/26/2019 11:03 AM CONTENT ENGINEER) [facility] Method Time Signature Hep. Bs NON-REACTI 03/26/2019 [place] Antigen VE 3:01 PM [facility] (HBsAg) LABORATORY Comment: The results from [...] Antibody REACTIVE SEE BELOW 03/26/2019 4:20 PM [facility] Comment: A reactive result indicates that the pat ient is immune to HBV infection. Hep B Core Total see below Non-Reactive 03/26/2019 4:20 PM [facility] Comment: NON-REACTIVE All results should be [...] C REACTIVE (AA) Non-Reactive 03/26/2019 4:20 PM [facility] Comment: REPORTABLE DISEASE Agent. Must be report ed to [facility] within 1 working day. ??(Department rece iving report is responsible for filling out [facility]-Disease Report Card). It is recommended by the [...] Laterality Blood 03/26/2019 11:03 03/26/2019 1:39 AM CONTENT ENGINEER PM CONTENT ENGINEER Narrative [facility] - 03/11 4:20 PM CONTENT ENGINEER Called to Ahmet Lamar with pos HCVO, andria singh , , 16:20 03/26/2019 RAR01 Boby Byrne MD LAB BLOOD ORDERABLES Performing Organization Address City/State/ZIP Code Phon e Number [facility] [address] [place] [phone] HIV-1 and HIV-2 antibodies (03/26/2019 11:03 AM CONTENT ENGINEER) P athologist Signature HIV-1/HIV-2 NON-REACTI Non-Reacti 03/26/2019 [place] VE ve 4:20 PM [facility] Comment: The results from this [...] Laterality Blood 03/26/2019 11:03 03/26/2019 1:39 AM CONTENT ENGINEER PM CONTENT ENGINEER Narrative [facility] - 03/11 4:20 PM CONTENT ENGINEER Called to Ahmet Lamar with pos HCVO, rb a , , 16:20 03/26/2019 RAR01 Boby Byrne MD LAB BLOOD ORDERABLES Performing Organization Address City/State/ZIP Code Phon e Number [facility] [address] [place] [phone] documented in this encounter Visit Diagnoses Diagnosis Screening examination for infectious dis ease - Primary Screening examination for unspecified in fectious disease Screening examination for infectious dis ease Screening examination for unspecified in fectious disease documented in this encounter Care Teams Payroll Associate Relationship Specialty Start Date End Date None, Pcp PCP - General Gaming Manager 02/06/[address] [place] [address] documented as of this encounter
--- OUTSIDE RECORDS SUMMARY | 2022-01-14 01:48 | XMS_ITS | Encounter Summary ---
:1990 Author Organization [facility] Address [address] [place] [address] Care Team Providers Name Role Phone None, Pcp Primary Care Provider Unavailable Reason for Visit Reason Onset Date Comments +UPT 03/20/2020 Encounter Details Date Type Department Care Team Description 03/20/2020 Telephone [facility] Noe Rivas MD +UPT [facility] [address] [place], [place] [address] Social History Tobacco Use Types Packs/Day Years [...] 03/21/2020 relatives? How often do you attend bahai or jewish Not asked 03/21/2020 services? Do you belong to any clubs or organizations such as Argelia schilling 03/21/2020 bahai groups, unions, fraternal or athletic groups, or [...] or slept in a retirement (including now)? Sex Assigned at Date Recorded Not on file documented as of this encounter Miscellaneous Notes Telephone Encounter - Vanessa Issa RN - 03/20/2020 8:24 AM CST New OB Intake Phone Call Last menstrual period: no idea, I have very irregular periods. I had an ultrasound at [facility] - unknown Positive test date: 02/09/2020 Does the patient have nausea or vomiting? Yes Nutrition consult offered? 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 Had been smoking cigarettes Current medications: Current Outpatient Medications on File Prior to Visit Medication Sig ??? buprenorphine (SUBUTEX) [address] the tongue 1 (one) time each day 8 mg in am and 4 mg inpm to start ??? doxylamine (UNISON) 25 MG tablet Take 25 mg by mouth at night if needed ??? Vit-Fe Fumarate-FA ( MULTIVITAMINS PO) Take by mouth ??? pyridoxine (VITAMIN B-6) 100 MG tablet Take 100 mg by mouth 1 (one) time each day ??? acetaminophen (TYLENOL) 500 MG tablet Take 1,000 mg by mouth every 6 (six) hours if needed for mild pain ??? albuterol HFA (VENTOLIN HFA) 108 (90 Base) MCG/ACT inhaler Inhale 2 puffs every 4 (four) hours if needed for wheezing or shortness of breath No current facility-administered medications on file prior to visit. Vitamins: Yes Allergies Allergies Allergen Reactions ??? Sulfa Antibiotics Anticipates delivery at [facility]: unknown Established [facility] care in the past: No Preferred Provider: OB Services New OB Intake recommended in 1 weeks with exam one week later. New OB transfer from another organization: Yes- [facility] in [place], see Care Everywhere HAZEL per records- 10/04/20 EDORING SUPERINTENDENT documented in this encounter Plan of Treatment Not on filedocumented as of this encounter Visit Diagnoses Not on filedocumented in this encounter Care Teams Manager Harbor Relationship Specialty Start Date End Date None, Pcp PCP - General Fleet Manager 02/06/[address] [place] [phone] documented as of this encounter
--- OUTSIDE RECORDS SUMMARY | 2022-01-14 01:48 | XMS_ITS | Encounter Summary ---
:1990 Author Organization [facility] Address [address] [place] [address] Care Team Providers Name Role Phone None, Pcp Primary Care Provider Unavailable Encounter Details Date Type Department Care Team Description 03/24/2020 Lab [facility] Screening examination for [address] inf ectious disease [address] [place] [address] Social History Tobacco Use Types Packs/Day Years [...] 03/21/2020 relatives? How often do you attend hinduism or latter day Not asked 03/21/2020 services? Do you belong to any clubs or organizations such as Not chinmay schilling 03/21/2020 hinduism groups, unions, fraternal or athletic groups, or [...] with No / Unsure 03/21/2020 1:12 PM ADVERTISING DISPATCH CLERKS SUPERVISOR someone who was confirmed or suspected to have Coronavirus / COVID-19? documented as of this encounter Plan of Treatment Not on filedocumented as of this encounter Procedures Procedure Name Priority Date/Time Associated Diagnosis Comme nts SARS CORONAVIRUS 2 Routine 03/24/2020 8:36 AM Screening Res ults for this RNA DETECTION, V ADVERTISING DISPATCH CLERKS SUPERVISOR examination for procedur e are in infectious disease the resul ts section. documented in this encounter Results SARS Coronavirus 2 RNA detection, v (03/24/2020 8:36 AM ADVERTISING DISPATCH CLERKS SUPERVISOR) [facility] Method Time Signature SARS Covid Nasopharyngeal 03/25/2020 [facility] specimen 1:53 PM ADVERTISING DISPATCH CLERKS SUPERVISOR LABORATORIES source Patient Race White 03/25/2020 [facility] 1:53 PM ADVERTISING DISPATCH CLERKS SUPERVISOR LABORATORIES Patient OTHER 03/25/2020 [facility] Ethnicity 1:53 PM ADVERTISING DISPATCH CLERKS SUPERVISOR LABORATORIES SARS CoV2 Undetected Undetected 03/25/2020 [facility] RNA 1:53 PM ADVERTISING DISPATCH CLERKS SUPERVISOR LABORATORIES Comment: SARS-CoV-2 RNA absent. This result does not rule out COVID-19 in the patient, as the sensitiv ity of the test depends on the timing of the specimen co llection and the quality of the specimen. Result should b e correlated with patient's history and clinical presentat ion. Method - 03/25/2020 1:53 PM ADVERTISING DISPATCH CLERKS SUPERVISOR [facility] Comment: PKELM- This test uses the Innovaci w Coronavirus Nucleic Acid Detection Kit (Teach Me To Be, Inc.), and is performed on the StadiumPark App instrument and Applied Access Media 3 7500 Fast Real-Time PCR Syste m. It has received Emergency Use Authorization (EUA) by the U.S. Food and Drug Administration, and is modified from the school age lead teacher's instructions with a bridging study. Perf ormance characteristics were verified by [facility] in a manner consistent with CLIA requirements. Fact sheets for this Emergency Use Autho rization (EUA) can be found at the following links: https://www.fda.gov/media/259757/downloa d for Healthcare Providers https://www.fda.gov/media/579700/downloa d for Patients Test Performed by: [facility] [address] [address] 83 Telephone Services Sales Representative: Benigno Selby M.D. Ph. D.; CLIA# [id number] Specimen Anatomical Collection Method Collection Time Receive d Time (Source) Location / / Volume Laterality Swab 03/24/2020 8:36 AM 0 (Nasopharyngeal) ADVERTISING DISPATCH CLERKS SUPERVISOR 10:26 AM CS T Kaley Harris APRN, TOOL DIE MAKER LAB MOLECULAR DIAGNOSTICS OR DERABLES Performing Organization Address City/State/ZIP Code Phon e Number [facility] see result attachment for specific address documented in this encounter Visit Diagnoses Diagnosis Screening examination for infectious dis ease Screening examination for unspecified in fectious disease documented in this encounter Additional Health Concerns Infection Onset Date Last Indicated Resolved Time COVID-19 Rule Out 03/24/2020 03/24/2020 03/25/2020 1:5 3 PM ADVERTISING DISPATCH CLERKS SUPERVISOR documented as of this encounter Care Teams Quarry Boss Relationship Specialty Start Date End Date None, Pcp PCP - [employer] Ax Consultant 02/06/[address] [place] [phone] documented as of this encounter
--- OUTSIDE RECORDS SUMMARY | 2022-01-14 01:48 | XMS_ITS | Encounter Summary ---
:1990 Author Organization [facility] Address [address] [place] [address] Care Team Providers Name Role Phone None, Pcp Primary Care Provider Unavailable Reason for Visit Reason Onset Date Comments Covid Triage 03/24/2020 Encounter Details Date Type Department Care Team Description 03/24/2020 Telephone [facility] Kaley Carroll, Covid Triage [address] [facility], [facility] [address] [place] [address] Social History Tobacco Use Types Packs/Day Years [...] 03/21/2020 relatives? How often do you attend restoration or uatsdin Not asked 03/21/2020 services? Do you belong to any clubs or organizations such as Argelia schilling 03/21/2020 restoration groups, unions, fraternal or athletic groups, or [...] place to sleep or slept in a half-way (including now)? Education Answer Date Recorded What is the highest level of school you have High school gra duate 03/21/2020 completed or the highest degree you have received? Sex Assigned at Date Recorded Not on file COVID-19 Exposure Response Date Recorded In the last month, have you been in contact with No / Unsure 03/21/2020 1:12 PM WOOD CUTTER someone who was confirmed or suspected to have Coronavirus / COVID-19? documented as of this encounter Progress Notes Marvel Alcaraz RN - 03/24/2020 8:33 AM CST 03/24/20 0800 COVID Algorithm Question A - Patient has the following symptoms: Headache;Nasal congestion;Nausea Date of onset of symptoms 03/22/20 Question B - Patient belongs to a high risk group: Congregate living resident;None Question C - Patient has the following special indications None Question D - Patient has close contact with confirmed COVID case: Yes Any positive indication in any question? Yes - proceed with COVID screening and education CUTTER documented in this encounter Miscellaneous Notes Telephone Encounter - Marvel Alcaraz RN - 03/24/2020 8:29 AM CST Patient instructed to report to the screening station for testing and then home. Patient instructed to remain home until: ??? Notified of results AND If symptomatic: ??? No fever for at least 24 hours (one full day without fever without the use of fever reducers AND ??? Other symptoms have improved Patient instructed that if they want to be seen by a provider for their symptoms, they can request atelehealth visit when calling to schedule. CUTTER documented in this encounter Plan of Treatment Not on filedocumented as of this encounter Results SARS Coronavirus 2 RNA detection, v (03/24/2020 8:36 AM WOOD CUTTER) [facility] Method Time Signature SARS Covid Nasopharyngeal 03/25/2020 [facility] specimen 1:53 PM WOOD CUTTER LABORATORIES source Patient Race White 03/25/2020 [facility] 1:53 PM WOOD CUTTER LABORATORIES Patient OTHER 03/25/2020 [facility] Ethnicity 1:53 PM WOOD CUTTER LABORATORIES SARS CoV2 Undetected Undetected 03/25/2020 [facility] RNA 1:53 PM WOOD CUTTER LABORATORIES Comment: SARS-CoV-2 RNA absent. This result does not rule out COVID-19 in the patient, as the sensitiv ity of the test depends on the timing of the specimen co llection and the quality of the specimen. Result should b e correlated with patient's history and clinical presentat ion. Method - 03/25/2020 1:53 PM WOOD CUTTER [facility] Comment: PKELM- This test uses the Effcon MXR Ne w Coronavirus Nucleic Acid Detection Kit (Effcon MXR, Inc.), and is performed on the Tru-Friends instrument and Applied Code Climate 7500 Fast Real-Time PCR Danielae m. It has received Emergency Use Authorization (EUA) by the U.S. Food and Drug Administration, and is modified from the glove operator's instructions with a bridging study. Perf ormance characteristics were verified by [facility] in a manner consistent with CLIA requirements. Fact sheets for this Emergency Use Autho rization (EUA) can be found at the following links: https://www.fda.gov/media/749083/downloa d for Healthcare Providers https://www.fda.gov/media/087708/downloa d for Patients Test Performed by: [address] [id number] Looper Operator: Benigno Selby M.D. Ph. D.; CLIA# [id number] Specimen Anatomical Collection Method Collection Time Receive d Time (Source) Location / / Volume Laterality Swab 03/24/2020 8:36 AM 0 (Nasopharyngeal) WOOD CUTTER 10:26 AM CS T Kaley Harris LANCE CREWMEMBER/MLRS SERGEANT, LOSS PREVENTION LEADER LAB MOLECULAR DIAGNOSTICS OR DERABLES Performing Organization Address City/State/ZIP Code Phon e Number [facility] see result attachment for specific address documented in this encounter Visit Diagnoses Diagnosis Screening examination for infectious dis ease - Primary Screening examination for unspecified in fectious disease documented in this encounter Care Teams Propulsion Motor And Generator Repairer Relationship Specialty Start Date End Date None, Pcp PCP - General Group Fitness Manager 02/06/19 [address] [place] [phone] documented as of this encounter
--- OUTSIDE RECORDS SUMMARY | 2022-01-14 01:48 | XMS_ITS | Encounter Summary ---
:1990 Author Organization [facility] Address [address] [place] [address] Care Team Providers Name Role Phone None, Pcp Primary Care Provider Unavailable Encounter Details Date Type Department Care Team Description 03/27/2020 Lab [facility] 12 weeks gestation of [address] [place] [address] Social History Tobacco Use Types Packs/Day Years [...] How often do you attend mandaeism or mormon Not asked 03/21/2020 services? Do you belong to any clubs or organizations such as Not chinmay schilling 03/21/2020 mandaeism groups, unions, fraternal or [...] with No / Unsure 04/01/2020 8:38 PM PRODUCT DESIGNER someone who was confirmed or suspected to have Coronavirus / COVID-19? documented as of this encounter Plan of Treatment Not on filedocumented as of this encounter Procedures Procedure Name Priority Date/Time Associated Diagnosis Comme nts [id number] Routine 03/27/2020 3:45 PM 12 weeks gestation of Results for this PRODUCT DESIGNER procedure are i n the results section . documented in this encounter Results [id number] (03/27/2020 3:45 PM PRODUCT DESIGNER) P athologist Signature [id number] see below 03/31/2020 [facility] 11:56 AM PRODUCT DESIGNER CENTER LABORATORY Comment: ? See scanned report Specimen Anatomical Collection Method Collection Time Receive d Time (Source) Location / / Volume Laterality Blood 03/27/2020 3:45 PM 0 4:25 PRODUCT DESIGNER PM PRODUCT DESIGNER Monica Delgado MD LAB BLOOD ORDERABLES Performing Organization Address City/State/ZIP Code Phon e Number [facility] [address] [place] [address] documented in this encounter Visit Diagnoses Diagnosis 12 weeks gestation of documented in this encounter Care Teams Road Patcher Relationship Specialty Start Date End Date None, Pcp PCP - General Development Eng 02/06/[address] [place] [phone] documented as of this encounter
--- OUTSIDE RECORDS SUMMARY | 2022-01-14 01:48 | XMS_ITS | Encounter Summary ---
:1990 Author Organization [facility] Address [address] [place] [address] Care Team Providers Name Role Phone None, Pcp Primary Care Provider Unavailable Reason for Referral Consultation (Routine) - Closed Specialty Diagnoses / Procedures Referred By Contact Refer red To Contact Perinatology Diagnoses Combined drug dependence, continuous abuse (HCC) Monica Delgado MD [facility] Perinatology [address] [place], [place] [phone] Referral ID Status Reason Start Date Expiration Date Visits V isits Requested Authorized [id number] Closed Specialty 03/21/2020 03/21/2021 1 1 Services Required Scheduling Instructions Please call the Perinatology Department at [phone] to obtain an appointment. 29 y.o. at 11w6d by US, heroin u se in , last use 3 weeks ago. On Subutex. First with OB [id number]. CY WRITER SALES Encounter Details Date Type Department Care Team Description 03/21/2020 Orders Only [facility] Women's Health Monica Delgado, Comb ined drug [facility] dependence, continuous Teacher Of The Sight Impaired [address] abuse (HCC) (Primary [address] Dx) [place] [address] [place] [phone] Social History Tobacco Use Types Packs/Day [...] 03/21/2020 relatives? How often do you attend evangelical or latter day Not asked 03/21/2020 services? Do you belong to any clubs or organizations such as Argelia schilling 03/21/2020 evangelical groups, unions, fraternal or athletic groups, or [...] with No / Unsure 03/21/2020 1:12 PM POLICY WRITER SALES someone who was confirmed or suspected to have Coronavirus / COVID-19? documented as of this encounter Progress Notes Monica Delgado MD - 03/21/2020 4:45 PM CST Amb Ref [facility] 29 y.o. at 11w6d by US, heroin use in , last use 3 weeks ago. On Subutex. First with OB 12.16.20. Monica Delgado MD FACOG CY WRITER SALES documented in this encounter Plan of Treatment Scheduled Referrals Name Type Priority Associated Order Schedule Diagnoses Ambulatory referral Outpatient Referral Routine Combined drug Ordered: to Perinatology dependence, 03/21/2020 continuous abuse (HCC) documented as of this encounter Visit Diagnoses Diagnosis Combined drug dependence, continuous abu se (HCC) - Primary documented in this encounter Care Teams Strategic Planner Relationship Specialty Start Date End Date None, Pcp PCP - General Customer Complaint Service Supervisor 02/06/[address] [place] [phone] documented as of this encounter
--- OUTSIDE RECORDS SUMMARY | 2022-01-14 01:48 | XMS_ITS | Encounter Summary ---
:1990 Author Organization [facility] Address [address] [place] [address] Care Team Providers Name Role Phone None, Pcp Primary Care Provider Unavailable Reason for Visit Reason Comments Consult Carotid Artery Disorder Consultation (Routine) - Closed Specialty Diagnoses / Procedures Referred By Contact Refer red To Contact Neurology Diagnoses Carotid artery disorder (HCC) Boby Byrne MD [address] [place] [phone] Referral ID Status Reason Start Date Expiration Date Visits V isits Requested Authorized [id number] Closed Specialty 04/23/2019 10/20/2019 1 1 Services Required Encounter Details Date Type Department Care Team Description 04/26/2019 Consult Neurology Boby Byrne MD [address] [place] [phone] Carotid artery disorder 210 9[facility] Qian Beltran MD [address] [place] [phone] (HCC) (Primary Dx) [place] [address] Social History Tobacco Use Types [...] How often do you attend mandaeism or nondenominational Not asked 03/21/2020 services? Do [...] Reading Time Taken Comments Blood Pressure 115/82 04/26/2019 1:41 PM PUBLIC HEALTH DIETITIAN Pulse 87 04/26/2019 1:41 PM PUBLIC HEALTH DIETITIAN Temperature 36.8 ??C (98.3 ??F) 04/26/2019 1:41 PM PUBLIC HEALTH DIETITIAN Respiratory Rate 16 04/26/2019 1:41 PM PUBLIC HEALTH DIETITIAN Oxygen Saturation 100% 04/26/2019 1:41 PM PUBLIC HEALTH DIETITIAN Inhaled Oxygen Concentration - - Weight 73 kg (160 lb 15 oz) 04/26/2019 1:41 PM PUBLIC HEALTH DIETITIAN Height 166 cm (5' 5.35) 04/26/2019 1:41 PM PUBLIC HEALTH DIETITIAN Body Mass Index 26.49 04/26/2019 1:41 PM PUBLIC HEALTH DIETITIAN documented in this encounter Progress Notes Qian Beltran MD - 04/26/2019 1:40 PM CST Consultation Subjective Patient ID: Anjali Hoang is a 29 y.o. female referred by Dr. 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 In January 2019, the patient began to experience left face/jaw pain. 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 An MRI brain and MRA head/neck did not find any abnormalities. It was determined that her painwas likely due to poor dentition, and it was recommended that she see a dentist for the pain. For completeness' sake, the [facility] recommended repeat CTA imaging of the neck after 3 months to confirm the diagnosis of carotid web. The patient reports that her pain in the face is significantly improved. She has not yet gone to thedentis. HPI A provider reviewed the following portions of the patient's chart in this encounter and updated as appropriate: Tobacco Allergies Meds Problems Med Hx Surg Hx Fam Hx Review of Systems All other systems reviewed and are negative. Objective Neurological Exam Mental Status Awake, alert and oriented to person, place and time.Alert. Speech is normal. Language is fluent withno aphasia. Cranial Nerves CN II: Visual acuity is normal. Visual mccain full to confrontation. CN III, IV, : Extraocular movements intact bilaterally. Normal lids and orbits bilaterally. Pupilsequal round and reactive to light bilaterally. CN V: Facial sensation is normal. CN VII: Full and symmetric facial movement. CN VIII: Hearing is normal. CN IX, X: Palate elevates symmetrically. Normal gag reflex. CN XI: Shoulder shrug strength is normal. CN XII: Tongue midline without atrophy or fasciculations. Motor Strength is 5/5 throughout all four extremities. Sensory Light touch is normal in upper and lower extremities. Reflexes Deep tendon reflexes are 2+ and symmetric in all four extremities with downgoing toes bilaterally. Coordination Bttfts-vp-pzyn, rapid alternating movements and zhfy-[id number]-aljl normal bilaterally without dysmetria. Gait Normal casual, toe, heel and tandem gait. Romberg is absent. Physical Exam Vitals signs and nursing note reviewed. Constitutional: Appearance: Normal appearance. HENT: Head: Normocephalic and atraumatic. Eyes: General: Lids are normal. Extraocular Movements: Extraocular movements intact. Pupils: Pupils are equal, round, and reactive to light. Neck: Musculoskeletal: Normal range of motion. Cardiovascular: Rate and Rhythm: Normal rate. Pulmonary: Effort: Pulmonary effort is normal. Musculoskeletal: Normal range of motion. Skin: General: Skin is warm and dry. Neurological: General: No focal deficit present. Mental Status: She is alert and oriented to person, place, and time. Coordination: Coordination is intact. Romberg sign negative. Deep Tendon Reflexes: Strength normal and reflexes are normal and symmetric. Psychiatric: Mood and Affect: Mood normal. Speech: Speech normal. Behavior: Behavior normal. Assessment/Plan Problem List Items Addressed This Visit Circulatory Carotid artery disorder (HCC) - Primary Relevant Orders CT neck angio CTA of the neck has been ordered, per [facility]'s recommendations. If this shows continued evidence of carotid web, her aspirin can be discontinued. No follow-up will be scheduled at this time; I will contact her with the results by telephone. She has a copy of my business card if needed. She has no further questions or concerns, and is pleased with this plan. IC HEALTH DIETITIAN Boby Byrne MD - 04/26/2019 1:40 PM CST Reviewed IC HEALTH DIETITIAN documented in this encounter Plan of Treatment Not on filedocumented as of this encounter Visit Diagnoses Diagnosis Carotid artery disorder (HCC) - Primary documented in this encounter Care Teams Fur Stylist Relationship Specialty Start Date End Date None, Pcp PCP - General Numerical Control Machine Operator 02/06/[address] [place] [phone] documented as of this encounter
--- OUTSIDE RECORDS SUMMARY | 2022-01-14 01:48 | XMS_ITS | Encounter Summary ---
:1990 Author Organization [facility] Address [address] [place] [address] Care Team Providers Name Role Phone None, Pcp Primary Care Provider Unavailable Reason for Visit Reason Onset Date Comments clarify medications needed 04/01/2020 Encounter Details Date Type Department Care Team Description 04/01/2020 Telephone [facility] Women's Health Pooja Astorga medications [facility] MD Sasha needed Stem Cleaning Machine Feeder [address] [facility] [address] [place] [address] [place], [place] [phone] (Wo rk) Social History Tobacco Use Types [...] How often do you attend jain or latter day Not asked 03/21/2020 services? [...] with No / Unsure 03/21/2020 1:12 PM SLAG MOTOR OPERATOR someone who was confirmed or suspected to have Coronavirus / COVID-19? documented as of this encounter Miscellaneous Notes Telephone Encounter - Farheen Liu RN - 04/01/2020 12:05 PM SLAG MOTOR OPERATOR Patient notified MOTOR OPERATOR Telephone Encounter - Zainab Rm MD - 04/01/2020 11:46 AM CST Medications signed to listed pharmacy. Thanks - CM MOTOR OPERATOR Telephone Encounter - Vanessa Issa RN - 04/01/2020 11:20 AM CST RN spoke with Anjali (, EGA: 13.3, OB Service) to clarify what medications she was requesting. There was a previous note found, on chart review, that discussed the unisom. Anjali stated she is now able to take the unisom while at [facility] and no longer requests a prescription for anausea medication. She stated she does need a refill of the vitamin B6, bisacodyl suppositories and her albuterol inhaler (this was discussed at her initial and documented in note but does notappear to have been sent. Moderate asthma, unspecified whether complicated, unspecified whether persistent ->Alb MDI to [facility] Medications pended and forwarded to manager digital ad operations MD to review. MOTOR OPERATOR Telephone Encounter - Maria Del Carmen Branden Ellis - 04/01/2020 10:33 AM CST Pt is requesting refill of suppositories and Vitamin B6 MOTOR OPERATOR documented in this encounter Plan of Treatment Not on filedocumented as of this encounter Visit Diagnoses Diagnosis care, subsequent , fir st trimester - Primary Mild intermittent asthma without complic ation documented in this encounter Care Teams Roulette Dealer Relationship Specialty Start Date End Date None, Pcp PCP - General Wood Science Professor 02/06/19 [address] [place] [phone] documented as of this encounter
--- OUTSIDE RECORDS SUMMARY | 2022-01-14 01:48 | XMS_ITS | Encounter Summary ---
:1990 Author Organization [facility] Address [address] [place] [address] Care Team Providers Name Role Phone None, Pcp Primary Care Provider Unavailable Encounter Details Date Type Department Care Team Description 03/21/2020 Travel Social History Tobacco Use Types Packs/Day [...] 03/21/2020 relatives? How often do you attend sikhism or yazidism Not asked 03/21/2020 services? Do you belong to any clubs or organizations such as Argelia schilling 03/21/2020 sikhism groups, unions, fraternal or athletic groups, or [...] with No / Unsure 03/21/2020 1:12 PM PUPPY WALKER someone who was confirmed or suspected to have Coronavirus / COVID-19? documented as of this encounter Plan of Treatment Not on filedocumented as of this encounter Visit Diagnoses Not on filedocumented in this encounter Care Teams Process Operator Relationship Specialty Start Date End Date None, Pcp PCP - General Charge Operator 02/06/19 [address] [place] [phone] documented as of this encounter
--- OUTSIDE RECORDS SUMMARY | 2022-01-14 01:48 | XMS_ITS | Encounter Summary ---
:1990 Author Organization [facility] Address [address] [place] [address] Care Team Providers Name Role Phone None, Pcp Primary Care Provider Unavailable Encounter Details Date Type Department Care Team Description 03/26/2020 Orders Only [facility] Molly Shea MD [facility] drug [facility] [address] [place] [address] depe ndence, continuous Sack Lifter SE abuse (HCC) (Primary [address] [place], [place] Dx) [place] [phone] Social History Tobacco Use Types Packs/Day Years [...] How often do you attend anglican or anabaptism Not asked 03/21/2020 services? Do you belong to any clubs or organizations such as Not chinmay schilling 03/21/2020 anglican groups, unions, fraternal or [...] with No / Unsure 03/21/2020 1:12 PM INSTRUMENT PANEL ASSEMBLER someone who was confirmed or suspected to have Coronavirus / COVID-19? documented as of this encounter Plan of Treatment Not on filedocumented as of this encounter Procedures Procedure Name Priority Date/Time Associated Diagnosis Comme nts US OB DETAIL Routine 05/14/2020 10:36 AM Combined drug R esults for this ANATOMY SINGLE OR INSTRUMENT PANEL ASSEMBLER dependence, procedure are in FIRST GESTATION continuous abuse the resu lts (HCC) section. documented in this encounter Results OB US, detailed anatomy (05/14/2020 10:36 AM INSTRUMENT PANEL ASSEMBLER) Anatomical Region Laterality Modality Body Ultrasound Specimen (Source) Anatomical Collection Method Collection Time Re ceived Time Location / / Volume Laterality 05/14/2020 10:36 AM INSTRUMENT PANEL ASSEMBLER Impressions 05/23/2020 1:55 PM INSTRUMENT PANEL ASSEMBLER IMPRESSION: Single viable intrauterine at 19 weeks [...] posterior. Gender: Male Narrative 05/23/2020 1:55 PM INSTRUMENT PANEL ASSEMBLER INDICATION: Drug dependence EXAM DESCRIPTION: US OB ANATOMY COMPLETE TECHNIQUE: IMAGING: Transabdominal QUALITY: Satisfactory VICE PRESIDENT GLOBAL DIGITAL MARKETING: Sandy Procedure Note Molly Shea MD - 05/23/2020Formattin g of this note might be different from the original. INDICATION: Drug dependence EXAM DESCRIPTION: US OB ANATOMY COMPLETE TECHNIQUE: IMAGING: Transabdominal QUALITY: Satisfactory VICE PRESIDENT [employer]LOBAL D[employer] MARKETING: Sandy IMPRESSION: Single viable intrauterine at 19 [...] Primary documented in this encounter Care Teams Loading Dock Helper Relationship Specialty Start Date End Date None, Pcp PCP - General Photo Cartographer 02/06/19 [address] [place] [phone] documented as of this encounter
--- OUTSIDE RECORDS SUMMARY | 2022-01-14 01:48 | XMS_ITS | Encounter Summary ---
:1990 Author Organization [facility] Address [address] [place] [address] Care Team Providers Name Role Phone None, Pcp Primary Care Provider Unavailable Encounter Details Date Type Department Care Team Description 03/26/2020 Telephone [facility] [place] Jenn Mcnally MD [facility] Wireless Sales Expert [address] [facility] [address] [place] [phone] [place], [place] [address] [phone] Social History Tobacco Use Types Packs/Day Years [...] 03/21/2020 relatives? How often do you attend alevism or hindu Not asked 03/21/2020 services? Do you belong to any clubs or organizations such as Argelia schilling 03/21/2020 alevism groups, unions, fraternal or athletic groups, or [...] with No / Unsure 04/01/2020 8:38 PM TAPE WEAVER someone who was confirmed or suspected to have Coronavirus / COVID-19? documented as of this encounter Miscellaneous Notes Telephone Encounter - Jenn Little MD - 03/26/2020 4:07 PM CST Patient aware of previous Hepatitis C infection. Viral load and LFT's already ordered by Dr. Delgado. Thanks, Jenn Little MD WEAVER Telephone Encounter - Farheen Liu RN - 03/26/2020 2:47 PM TAPE WEAVER Received phone call from lab that patient's Hepatitis C antibody was reactive. Will send to provider. WEAVER documented in this encounter Plan of Treatment Not on filedocumented as of this encounter Goals Goal Patient Goal Associated Recent Patient-Stated? Author Type Problems Progress secure housing General Yes Melissa Coronado, DNP, HIDE DROPPER, BLOW UP OPERATOR Note: Formatting of this note might be d ifferent from the original. - has applied for several housing lists; waiting to hear back, wants to be near family documented as of this encounter Visit Diagnoses Not on filedocumented in this encounter Care Teams Car Examiner Relationship Specialty Start Date End Date None, Pcp PCP - General Band Instrument Maker 02/06/[address] [place] [phone] documented as of this encounter
--- OUTSIDE RECORDS SUMMARY | 2022-01-14 01:48 | XMS_ITS | Encounter Summary ---
:1990 Author Organization [facility] Address [address] [place] [address] Care Team Providers Name Role Phone None, Pcp Primary Care Provider Unavailable Reason for Referral Consultation (Routine) - Closed Specialty Diagnoses / Procedures Referred By Contact Refer red To Contact Family Medicine Diagnoses Constipation, unspecified constipation type Anjali Gan PA [address] [place] [address] Referral ID Status Reason Start Date Expiration Date Visits V isits Requested Authorized [id number] Closed Specialty 04/18/2019 04/18/2020 1 1 Services Required Scheduling Instructions ED follow up, establish care HYSICAL LABORATORY SUPERVISOR Reason for Visit Reason Comments Constipation Encounter Details Date Type Department Care Team Description 04/18/2019 Emergency [facility] Emergency Const ipation, unspecified Room constipation type (Primary [address] [facility] Dx) [place] [address] Social History Tobacco Use Types [...] How often do you attend jainism or methodist Not asked 03/21/2020 services? Do [...] or slept in a penitentiary (including now)? Sex Assigned at Date Recorded Not on file documented as of this encounter Last Filed Vital Signs Vital Sign Reading Time Taken Comments Blood Pressure 136/80 04/18/2019 11:32 AM GEOPHYSICAL LABORATORY SUPERVISOR Pulse 101 04/18/2019 11:32 AM GEOPHYSICAL LABORATORY SUPERVISOR Temperature 36.5 ??C (97.7 ??F) 04/18/2019 10:06 AM GEOPHYSICAL LABORATORY SUPERVISOR Respiratory Rate 18 04/18/2019 10:06 AM GEOPHYSICAL LABORATORY SUPERVISOR Oxygen Saturation 100% 04/18/2019 10:06 AM GEOPHYSICAL LABORATORY SUPERVISOR Inhaled Oxygen Concentration - - Weight 73.1 kg (161 lb 0.7 oz) 04/18/2019 10:06 AM GEOPHYSICAL LABORATORY SUPERVISOR Height 166 cm (5' 5.35) 04/18/2019 10:06 AM GEOPHYSICAL LABORATORY SUPERVISOR Body Mass Index 26.51 04/18/2019 10:06 AM GEOPHYSICAL LABORATORY SUPERVISOR documented in this encounter Discharge Instructions Discharge InstructionsNISHA Lopez - 04/18/2019 12:15 PM CST You will be contacted for follow up with family practice for further management. Continue the miralax as recommended. If you continue to have symptoms you can repeat a bottle of magnesium citrate tomorrow. Suppositories are also available over the counter. Return with new or worsening symptoms. HYSICAL LABORATORY SUPERVISOR AttachmentsThe following attachments cannot be sent through Care Everywhere. Constipation Adult (Belarusian)documented in this encounter Medications at Time of Discharge Medication Sig Dispensed Refills Start Date End Date acetaminophen (TYLENOL) Take 1,000 mg by 0 500 MG tablet mouth every 6 (six) hours if needed for mild pain albuterol HFA (VENTOLIN Inhale 2 puffs 18 g 1 01/23/20 19 04/01/2020 HFA) 108 (90 Base) every 4 (four) MCG/ACT hours if needed for inhalerIndications: Mild wheezing or intermittent asthma shortness of breath without complication aspirin 325 MG tablet Take 325 mg by 0 03/20/2020 mouth 1 (one) time each day atomoxetine (STRATTERA) Take 1 capsule (80 30 capsule 2 01/1003/20/2020 80 MG mg total) by mouth capsuleIndications: 1 (one) time each Attention deficit day disorder, unspecified hyperactivity presence docusate sodium (COLACE) Take 100 mg by 0 03/20/2020 100 MG capsule mouth 1 (one) time each day DULoxetine (CYMBALTA) 30 Take 1 capsule (30 30 capsule 2 03/20/[address] mg total) by mouth capsuleIndications: 1 (one) time each Chronic midline low back day Do not crush or pain with bilateral chew. sciatica, Neck pain, Anxiety, Depression, unspecified depression type gabapentin (NEURONTIN) Take one capsule 120 capsule 1 201803/20/2020 300 MG (300mg) at 8 a.m. capsuleIndications: and 1 p.m. and 2 Chronic midline low back capsules (600mg) pain with bilateral every QHS. sciatica, Neck pain ibuprofen (ADVIL,MOTRIN) Take 600 mg by 0 03/20/2020 200 MG tablet mouth every 6 (six) hours if needed for mild pain Take 600 mg q6h PRN nicotine (NICODERM CQ) Place 1 patch on 30 patch 1 019 03/20/2020 21 MG/24HRIndications: the skin 1 (one) Tobacco dependence time each day at the same time nicotine (NICODERM CQ) 7 Place 1 patch on 30 patch 1 03/1203/20/2020 MG/24HRIndications: the skin 1 (one) Tobacco dependence time each day at the same time documented as of this encounter ED Notes Nicole Pratt RN - 04/18/2019 10:06 AM CST Pt states she deals with constipation, pt last regular bm was 5 days ago. Pt state she drank a bottle of mag citrate yesterday without results. Pt states she feels the stool is sitting up high and complains of abd pain. HYSICAL LABORATORY SUPERVISOR NISHA Lopez - 04/18/2019 9:58 AM CST HPI Chief Complaint Patient presents with ??? Constipation Patient is a 29 year old female with a past medical history significant for constipation and IBS whopresents to the ED today for evaluation of constipation. She reports it has been 5 days since her last bowel movement. She states that she is on a regimen of miralax and colace daily. She also drank a bottle of magnesium citrate yesterday with no results. She is having more pain and abdominal distension so she came to the ED. She states the pain is new for her. She denies history of previous abdominal surgeries. She states that most of her previous workup was through [facility] and was told she has IBS and constipation but she has not yet had a colonoscopy. She presents from [facility] adult [facility]. History provided by: Patient Abdominal Pain Pain location: Generalized Pain quality: bloating Pain radiates to: Does not radiate Pain severity: Moderate Onset quality: Gradual Timing: Constant Chronicity: Chronic Relieved by: Nothing Worsened by: Nothing Ineffective treatments: OTC medications Associated symptoms: constipation and nausea Associated symptoms: no anorexia, no chest pain, no cough, no diarrhea, no dysuria, no fever, no hematochezia, no melena, no shortness of breath, no vaginal bleeding and no vomiting Patient History Patient History Allergies Allergen Reactions ??? Sulfa Antibiotics History reviewed. No pertinent past medical history. History reviewed. No pertinent surgical history. No family history on file. Social History Tobacco Use ??? Smoking status: Former Smoker Types: Cigarettes ??? Smokeless tobacco: Never Used Substance Use Topics ??? Alcohol use: Not Currently ??? Drug use: Not Currently Review of Systems Review of Systems Constitutional: Negative for fever. HENT: Negative. Eyes: Negative for visual disturbance. Respiratory: Negative for cough and shortness of breath. Cardiovascular: Negative for chest pain. Gastrointestinal: Positive for abdominal pain, constipation and nausea. Negative for anorexia, bloodin stool, diarrhea, hematochezia, melena and vomiting. Genitourinary: Negative for dysuria and vaginal bleeding. Musculoskeletal: Negative for back pain and myalgias. Skin: Negative for rash. Neurological: Negative for dizziness and headaches. Physical Exam ED Triage Vitals [04/18/19 1006] Temp Heart Rate Resp BP 36.5 ??C (97.7 ??F) (!) 131 18 121/90 SpO2 Temp Source Heart Rate Source Patient Position 100 % Temporal Monitor Sitting BP Location FiO2 (%) Left arm -- Vitals: 04/18/19 1006 04/18/19 1132 BP: 121/90 136/80 BP Location: Left arm Patient Position: Sitting Pulse: (!) 131 101 Resp: 18 Temp: 36.5 ??C (97.7 ??F) TempSrc: Temporal SpO2: 100% Weight: 73.1 kg (161 lb 0.7 oz) Height: 1.66 m (5' 5.35) Physical Exam Vitals signs and nursing note reviewed. Constitutional: General: She is not in acute distress. Appearance: She is well-developed. She is not ill-appearing. HENT: Head: Normocephalic and atraumatic. Right Ear: Tympanic membrane normal. Left Ear: Tympanic membrane normal. Nose: Nose normal. Mouth/Throat: Mouth: Mucous membranes are moist. Eyes: Conjunctiva/sclera: Conjunctivae normal. Pupils: Pupils are equal, round, and reactive to light. Neck: Musculoskeletal: Neck supple. Cardiovascular: Rate and Rhythm: Normal rate and regular rhythm. Heart sounds: No murmur. Pulmonary: Effort: Pulmonary effort is normal. No respiratory distress. Breath sounds: Normal breath sounds. Abdominal: General: Bowel sounds are normal. There is distension. Palpations: Abdomen is soft. Tenderness: There is abdominal tenderness (Diffuse). There is no guarding or rebound. Genitourinary: Comments: Declined Skin: General: Skin is warm and dry. Capillary Refill: Capillary refill takes less than 2 seconds. Neurological: Mental Status: She is alert. Psychiatric: Mood and Affect: Mood normal. Maribeth Coma Scale Score: 15 Procedures No results found. Labs Reviewed CBC WITH AUTO DIFFERENTIAL - Abnormal Result Value WBC 6.9 RBC 4.75 Hemoglobin 14.4 Hematocrit 44.3 (*) Platelets 301 MCV 93.3 MCH 30.4 MCHC 32.6 RDW 11.7 (*) Neutrophils 58.6 Absolute Neutrophils 4.0 Lymphocytes % 33.5 Absolute Lymphocytes 2.3 Monocytes % 6.8 Monocytes Absolute 0.5 Eosinophils 0.7 Absolute Eosinophils 0.0 (*) Basophils 0.5 Absolute Basophils 0.0 COMPREHENSIVE METABOLIC PANEL - Abnormal Total Protein 8.3 (*) Albumin, Serum 4.6 Total Bilirubin <0.7 AST 27 Alkaline Phosphatase 85 ALT (SGPT) 15 Sodium 140 Potassium 4.6 Chloride 100 CO2 33 (*) BUN 13 Creatinine 0.9 Glucose 106 (*) Calcium, Total,S 10.1 Fasting? Unknown URINALYSIS WITH REFLEX MICROSCOPIC - Abnormal Type CLEAN CATCH Color, Urine YELLOW Clarity, Urine CLEAR Glucose, Urine NEGATIVE Bilirubin, Urine NEGATIVE Ketones, Urine NEGATIVE Specific [place], Urine <=1.005 Blood, Urine NEGATIVE pH, Urine 7.5 (*) Protein, Urine NEGATIVE Urobilinogen, Urine 0.2 Nitrite, Urine NEGATIVE Leukocytes, Urine NEGATIVE LIPASE Lipase 59 AMYLASE Amylase 69 , URINE Test, Urine NEGATIVE GLOMERULAR FILTRATION RATE GFR >60 GFR >60 ED Course & MDM MDM Follow Up Pcp None [address] [place] [phone] Discharge Medication List as of 04/18/2019 12:17 PM CONTINUE these medications which have NOT CHANGED Details acetaminophen (TYLENOL) 500 MG tablet Take 1,000 mg by mouth every 6 (six) hours if needed for mild pain, Historical Med aspirin 325 MG tablet Take 325 mg by mouth 1 (one) time each day, Historical Med atomoxetine (STRATTERA) 80 MG capsule Take 1 capsule (80 mg total) by mouth 1 (one) time each day, Starting Tue02/06/2019, Until Tue02/06/2020, Normal docusate sodium (COLACE) 100 MG capsule Take 100 mg by mouth 1 (one) time each day, Historical Med DULoxetine (CYMBALTA) [address] capsule Take 1 capsule (30 mg total) by mouth 1 (one) time each day Do not crush or chew., Starting Tue01/22/2019, Until Tue01/22/2020, Normal gabapentin (NEURONTIN) 300 MG capsule Take one capsule (300mg) at 8 a.m. and 1 p.m. and 2 capsules (600mg) every QHS., Normal albuterol HFA (VENTOLIN HFA) 108 (90 Base) MCG/ACT inhaler Inhale 2 puffs every 4 (four) hours if needed for wheezing or shortness of breath, Starting Tue01/22/2019, Until Tue02/21/2019, Normal ibuprofen (ADVIL,MOTRIN) 200 MG tablet Take 600 mg by mouth every 6 (six) hours if needed for mild pain Take 600 mg q6h PRN, Historical Med nicotine (NICODERM CQ) 21 MG/24HR Place 1 patch on the skin 1 (one) time each day at the same time, Starting Tue01/22/2019, Normal nicotine (NICODERM CQ) 7 MG/24HR Place 1 patch on the skin 1 (one) time each day at the same time, Starting Tue03/12/2019, Until Tue04/11/2019, Normal Discharge Instructions Attached Instructions CONSTIPATION ADULT (PORTUGUESE) [[id number]] Discharge Instructions You will be contacted for follow up with family practice for further management. Continue the miralax as recommended. If you continue to have symptoms you can repeat a bottle of magnesium citrate tomorrow. Suppositories are also available over the counter. Return with new or worsening symptoms. ED COURSE and CLINICAL IMPRESSION ED Course as of Apr 18 1613TueApr 18, 2019 1036 Patient was seen and evaluated. Given the fact her pain is new I will check labs and xray. Suppository given. [AG] 1122 Labs are unremarkable, xray is pending. [AG] 1133 Updated patient, she had a large BM and is feeling much better. Xray is pending. [AG] 1209 Other than indeterminate calcification and bowel gas no acute abnormality on xray. She is feeling much better and is agreeable with discharge. X-ray abdomen 2 views [AG] ED Course User Index [AG] NISHA Lopez Clinical Impressions as of Apr 18 1613 Constipation, unspecified constipation type Disposition: Discharge NISHA Lopez 04/18/191613 HYSICAL LABORATORY SUPERVISOR documented in this encounter Plan of Treatment Scheduled Referrals Name Type Priority Associated Diagnoses Order S [facility] Ambulatory referral Outpatient Referral Routine Constipation, Ordered: to Family Practice unspecified 0 constipation type documented as of this encounter Procedures Procedure Name Priority Date/Time Associated Comments Diagnosis XR ABDOMEN 2 VIEWS STAT 04/18/2019 11:54 Resul ts for this AM GEOPHYSICAL LABORATORY SUPERVISOR procedure are i n the results section. GLOMERULAR FILTRATION STAT 04/18/2019 11:02 Re sults for this RATE AM GEOPHYSICAL LABORATORY SUPERVISOR procedure are i n the results section. CBC WITH AUTO STAT 04/18/2019 11:02 Results fo r this DIFFERENTIAL AM GEOPHYSICAL LABORATORY SUPERVISOR procedure are i n the results section. LIPASE STAT 04/18/2019 11:02 Results for this AM GEOPHYSICAL LABORATORY SUPERVISOR procedure are i n the results section. AMYLASE STAT 04/18/2019 11:02 Results for this AM GEOPHYSICAL LABORATORY SUPERVISOR procedure are i n the results section. COMPREHENSIVE STAT 04/18/2019 11:02 Results fo r this METABOLIC PANEL AM GEOPHYSICAL LABORATORY SUPERVISOR procedure ar e in the results section. , URINE STAT 04/18/2019 10:56 Results for this AM GEOPHYSICAL LABORATORY SUPERVISOR procedure are i n the results section. URINALYSIS WITH REFLEX STAT 04/18/2019 10:56 R esults for this MICROSCOPIC AM GEOPHYSICAL LABORATORY SUPERVISOR procedure are i n the results section. documented in this encounter Results X-ray abdomen 2 views (04/18/2019 11:54 AM GEOPHYSICAL LABORATORY SUPERVISOR) Anatomical Region Laterality Modality Body Radiographic Imaging Specimen (Source) Anatomical Collection Method Collection Time Re ceived Time Location / / Volume Laterality 04/18/2019 11:54 AM GEOPHYSICAL LABORATORY SUPERVISOR Impressions 04/18/2019 12:03 PM GEOPHYSICAL LABORATORY SUPERVISOR IMPRESSION: Normal bowel gas pattern. ??Indeterminat e calcification right lower quadrant overlying the right ilium. Narrative 04/18/2019 12:03 PM GEOPHYSICAL LABORATORY SUPERVISOR INDICATION: Abd pain, constipation COMPARISON: None FINDINGS: Normal bowel gas pattern. ??No evidence of obstruction. ??Indeterminate calcification overlying the right ilium measures 4 mm. ??This could be within the fecal stream, cannot complete ly exclude appendicolith. ?No other abnormal calcifications. ??Visible lung bases are unremarkable. ??No osseous abnormality. Procedure Note Mehran Vaughn MD - 04/18/2019 INDICATION: Abd pain, constipation COMPARISON: None FINDINGS: Normal bowel gas pattern. No evidence of obstruction. Indeterminate calcification overlying the right ilium measures 4 mm. This could be within the fecal stream, cannot complete ly exclude appendicolith. No other abnormal calcifications. Visible l eugenia bases are unremarkable. No osseous abnormality. IMPRESSION: Normal bowel gas pattern. Indeterminate calcification right lower quadrant overlying the right ilium. Anjali CAMERON IMG XR PROCEDURES Glomerular filtration rate (GFR) (04/18/2019 11:02 AM GEOPHYSICAL LABORATORY SUPERVISOR) athologist Signature GFR >60 04/18/2019 [facility] 11:17 AM [facility] >60 04/18/2019 [facility] [place] GFR 11:17 AM [facility] Comment: GFR calculated from serum creatinine v alue Chronic Kidney Disease less than 60 mL/m in/1.73 m2 Kidney Failure less than 15 mL/min/1.73 m2 Note: effective 08/24/06 IDMS-Traceable MDRD Study Equation used. Specimen Anatomical Collection Method Collection Time Receive d Time (Source) Location / / Volume Laterality 04/18/2019 11:02 04/18/2019 AM GEOPHYSICAL LABORATORY SUPERVISOR 11:02 AM GEOPHYSICAL LABORATORY SUPERVISOR Anjali CAMERON LAB BLOOD ORDERABLES Performing Organization Address City/State/ZIP Code Phon e Number [facility] [address] [place] [address] Amylase (04/18/2019 11:02 AM GEOPHYSICAL LABORATORY SUPERVISOR) athologist Signature Amylase 69 0 - 91 U/L 04/18/2019 [facility] 11:17 AM GEOPHYSICAL LABORATORY SUPERVISOR CENTER LABORATORY Specimen Anatomical Collection Method Collection Time Receive d Time (Source) Location / / Volume Laterality Blood (Blood, 04/18/2019 11:02 04/18/2019 Venous) AM GEOPHYSICAL LABORATORY SUPERVISOR 11:02 AM GEOPHYSICAL LABORATORY SUPERVISOR Anjali CAMERON LAB BLOOD ORDERABLES Performing Organization Address City/State/ZIP Code Phon e Number [facility] [address] [place] [address] Lipase (04/18/2019 11:02 AM GEOPHYSICAL LABORATORY SUPERVISOR) athologist Signature Lipase 59 23 - 300 04/18/2019 [facility] U/L 11:17 AM GEOPHYSICAL LABORATORY SUPERVISOR CENTER LAB[facility]ATORY Specimen Anatomical Collection Method Collection Time Receive d Time (Source) Location / / Volume Laterality Blood (Blood, 04/18/2019 11:02 04/18/2019 Venous) AM GEOPHYSICAL LABORATORY SUPERVISOR 11:02 AM GEOPHYSICAL LABORATORY SUPERVISOR Anjali CAMERON LAB BLOOD ORDERABLES Performing Organization Address City/State/ZIP Code Phon e Number [facility] [address] [place] [id number] (ABNORMAL) Comprehensive metabolic panel (04/18/2019 11:02 AM [facility]) [facility] Method Time Signature Total Protein 8.3 (H) 6.3 - 8.2 04/18/2019 MICHAEL g/dL 11:17 AM [facility] Albumin, Serum 4.6 3.5 - 5.0 04/18/2019 MICHAEL g/dL 11:17 AM [facility] Total Bilirubin <0.7 0.1 - 1.0 04/18/2019 MICHAEL mg/dL 11:17 AM [facility] AST 27 8 - 43 U/L 04/18/2019 MICHAEL 11:17 AM [facility] Alkaline 85 38 - 128 04/18/2019 MIC[facility]EL Phosphatase U/L 11:17 AM [facility] ALT (SGPT) 15 0 - 34 U/L 04/18/2019 MICHAEL 11:17 AM [facility] Sodium 140 135 - 145 04/18/2019 MICHAEL mEq/L 11:17 AM [facility] Potassium 4.6 3.5 - 5.1 04/18/2019 MICHAEL mEq/L 11:17 AM [facility] Chloride 100 98 - 107 04/18/2019 MICHAEL mEq/L 11:17 AM [facility] CO2 33 (H) 22 - 29 04/18/2019 MICHAEL mmol/L 11:17 AM [facility] BUN 13 5 - 25 04/18/2019 MIC[facility]EL mg/dL 11:17 AM [facility] Creatinine 0.9 0.4 - 1.2 04/18/2019 MICHAEL mg/dL 11:17 AM [facility] Glucose 106 (H) 70 - 100 04/18/2019 MICHAEL mg/dL 11:17 AM [facility] Calcium, Total,S 10.1 8.4 - 10.2 04/18/2019 MICHAEL mg/dL 11:17 AM [facility] Fasting? Unknown 04/18/2019 MICHAEL 11:02 AM GEOPHYSICAL LABORATORY SUPERVISOR [facility] Specimen Anatomical Collection Method Collection Time Receive d Time (Source) Location / / Volume Laterality Blood (Blood, 04/18/2019 11:02 04/18/2019 Venous) AM GEOPHYSICAL LABORATORY SUPERVISOR 11:02 AM GEOPHYSICAL LABORATORY SUPERVISOR Anjali CAMERON LAB BLOOD ORDERABLES Performing Organization Address City/State/ZIP Code Phon e Number [facility] [address] [place] [address] (ABNORMAL) CBC auto differential (04/18/2019 11:02 AM GEOPHYSICAL LABORATORY SUPERVISOR) [facility] gist Method Time Signature WBC 6.9 3.5 - 04/18/2019 MICHAEL 10.5 K/uL 11:04 AM [facility] RBC 4.75 3.90 - 04/18/2019 MICHAEL 5.00 M/uL 11:04 AM [facility] Hemoglobin 14.4 12.0 - 04/18/2019 MICHAEL 15.5 g/dL 11:04 AM [facility] Hematocrit 44.3 (H) 35.0 - 04/18/2019 MICHAEL 44.0 % 11:04 AM [facility] Platelets 301 150 - 450 04/18/2019 MICHAEL K/uL 11:04 AM [facility] MCV 93.3 81.6 - 04/18/2019 MICHAEL 98.3 fL 11:04 AM [facility] MCH 30.4 26.0 - 04/18/2019 MICHAEL 32.0 pg 11:04 AM [facility] MCHC 32.6 32.0 - 04/18/2019 MICHAEL 36.0 g/dL 11:04 AM [facility] RDW 11.7 (L) 11.9 - 04/18/2019 MICHAEL 15.5 % 11:04 AM [facility] Neutrophils 58.6 % 04/18/2019 MICHAEL 11:04 AM [facility] Absolute 4.0 1.7 - 7.0 04/18/2019 MIC[facility]EL Neutrophils K/uL 11:04 AM [facility] Lymphocytes % 33.5 % 04/18/2019 MICHAEL 11:04 AM [facility] Absolute 2.3 0.9 - 2.9 04/18/2019 MICHAEL Lymphocytes K/uL 11:04 AM [facility] Monocytes % 6.8 % 04/18/2019 MICHAEL 11:04 AM [facility] Monocytes 0.5 0.3 - 0.9 04/18/2019 MIC[facility]EL Absolute K/uL 11:04 AM [facility] Eosinophils 0.7 % 04/18/2019 MIC[facility]EL 11:04 AM [facility] Absolute 0.0 (L) 0.1 - 0.5 04/18/2019 MICHAEL Eosinophils K/uL 11:04 AM [facility] Basophils 0.5 % 04/18/2019 MICHAEL 11:04 AM [facility] Absolute 0.0 0.0 - 0.1 04/18/2019 MICHAEL Basophils K/uL 11:04 AM [facility] Specimen Anatomical Collection Method Collection Time Receive d Time (Source) Location / / Volume Laterality Blood (Blood, 04/18/2019 11:02 04/18/2019 Venous) AM GEOPHYSICAL LABORATORY SUPERVISOR 11:02 AM GEOPHYSICAL LABORATORY SUPERVISOR Anjali CAMERON LAB BLOOD ORDERABLES Performing Organization Address City/[facility] Phon e Number [facility] [address] [place], [place] [id number] , urine (04/18/2019 10:56 AM GEOPHYSICAL LABORATORY SUPERVISOR) Analysis Performed At Patho logist Time Signature NEGATIVE Negative 04/18/2019 [facility] Test, Urine 11:11 AM [facility] Specimen Anatomical Collection Method Collection Time Receive d Time (Source) Location / / Volume Laterality Urine (Urine, 04/18/2019 10:56 04/18/2019 Clean Catch) AM GEOPHYSICAL LABORATORY SUPERVISOR 11:05 AM GEOPHYSICAL LABORATORY SUPERVISOR Anjali CAMERON LAB URINE ORDERABLES Performing Organization Address City/[facility] Phon e Number [facility] [address] [place] [id number] (ABNORMAL) Urinalysis with reflex microscopic (04/18/2019 10:56 AM GEOPHYSICAL LABORATORY SUPERVISOR) Patholo gist Method Time Signature Type CLEAN CATCH 04/18/2019 MICHAEL 11:05 AM [facility] Color, Urine YELLOW YELLOW 04/18/2019 MICHAEL 11:14 AM [facility] Clarity, CLEAR CLEAR 04/18/2019 MICHAEL Urine 11:14 AM [facility] Glucose, NEGATIVE NEGATIVE 04/18/2019 MICHAEL Urine mg/dL 11:14 AM MEDICAL GEOPHYSICAL LABORATORY SUPERVISOR [facility] Bilirubin, NEGATIVE NEGATIVE 04/18/2019 MICHAEL Urine 11:14 AM [facility] Ketones, NEGATIVE NEGATIVE 04/18/2019 MICHAEL Urine mg/dL 11:14 AM [facility] Specific <=1.005 1.000 04/18/2019 MICHAEL [place], ->=1.030 11:14 AM [facility] [facility] Blood, Urine NEGATIVE NEGATIVE 04/18/2019 MICHAEL 11:14 AM [facility] pH, Urine 7.5 (A) 5.0 - 7.0 04/18/2019 MICHAEL 11:14 AM [facility] Protein, NEGATIVE NEGATIVE-TRA 04/18/2019 MICHAEL Urine CE mg/dL 11:14 AM [facility] Urobilinogen, 0.2 0.2 - 1.0 04/18/2019 MICHAEL Urine E.U./dL 11:14 AM [facility] Nitrite, NEGATIVE NEGATIVE 04/18/2019 MICHAEL Urine 11:14 AM [facility] Leukocytes, NEGATIVE NEGATIVE 04/18/2019 MICHAEL Urine 11:14 AM [facility] Specimen Anatomical Collection Method Collection Time Receive d Time (Source) Location / / Volume Laterality Urine (Urine, 04/18/2019 10:56 04/18/2019 Clean Catch) AM [facility] SUPERVISOR 11:05 AM [facility] SUPERVISOR Anjali CAMERON [facility] URINE ORDERABLES Performing Organization Address City/State/ZIP Code Phon e Number [facility] [address] [place] [address] documented in this encounter Visit Diagnoses Diagnosis Constipation, unspecified constipation t ype - Primary documented in this encounter Administered Medications Inactive Administered Medications - up to 3 most recent administrations Medication Order MAR Action Action Date Dose Rate Site bisacodyl (DULCOLAX) suppository Given 04/18/2019 10:50 AM [facility] SUPERVISOR 1 0 mg 10 mg 10 mg, Rectal, Once, On Tue04/18/19 at 1045, For 1 dose documented in this encounter Active and Recently Administered Medications Times are shown in [facility] SUPERVIS[facility]. Scheduled Medication Order 04/16/2019 04/17/2019 04/18/2019 bisacodyl (DULCOLAX) suppository 10 mg (COMPLETED) 1050 (Given - Provider: Nicole Pratt RN) 10 mg, Rectal, Once, Tue04/18/19 at 1045, For 1 dose documented in this encounter Care Teams Manager Demand Relationship Specialty Start Date End Date None, Pcp PCP - General Operations Clerk 02/06/19 [address] [place] [address] documented as of this encounter
--- OUTSIDE RECORDS SUMMARY | 2022-01-14 01:48 | XMS_ITS | Encounter Summary ---
:1990 Author Organization [facility] Address [address] [place] [address] Care Team Providers Name Role Phone None, Pcp Primary Care Provider Unavailable Encounter Details Date Type Department Care Team Description 04/18/2019 Travel Social History Tobacco Use Types Packs/Day [...] How often do you attend sabianist or sabianist Not asked 03/21/2020 services? Do you belong to any clubs or organizations such as Argelia schilling 03/21/2020 sabianist groups, unions, fraternal or [...] slept in a long term (including now)? Sex Assigned at Date Recorded Not on file documented as of this encounter Plan of Treatment Not on filedocumented as of this encounter Visit Diagnoses Not on filedocumented in this encounter Care Teams Crisis Therapist Relationship Specialty Start Date End Date None, Pcp PCP - General Supervisor [facility] [employer] 02/06/19 [address] [place] [address] documented as of this encounter
--- OUTSIDE RECORDS SUMMARY | 2022-01-14 01:48 | XMS_ITS | Encounter Summary ---
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 (SGPT) 19 0 - 34 U/L 03/26/2020 [facility] 10:29 AM [facility] Specimen Anatomical Collection Method Collection Time Receive d Time (Source) Location / / Volume Laterality Blood (Blood, 03/26/2020 9:42 AM 03/26/20 Venous) BUTCHER HELPER 10:08 AM BUTCHER HELPER Monica Delgado MD LAB BLOOD ORDERABLES Performing Organization Address City/[facility]/ZIP Code Phon e Number [facility] [address] [place] [address] AST (03/26/2020 9:42 AM BUTCHER HELPER) P athologist Signature AST 36 8 - 43 U/L 03/26/2020 [facility] 10:29 AM [facility] Specimen Anatomical Collection Method Collection Time Receive d Time (Source) Location / / Volume Laterality Blood (Blood, 03/26/2020 9:42 AM 03/26/20 20 Venous) BUTCHER HELPER 10:08 AM BUTCHER HELPER Monica Delgado MD LAB BLOOD ORDERABLES Performing Organization Address City/State/ZIP Code Phon e Number [facility] [address] [place] [phone] RPR (03/26/2020 9:42 AM BUTCHER HELPER) athologist Signature RPR NON-REACTI Non-reacti 03/27/2020 [facility] VE ve 7:18 PM BUTCHER HELPER [place] [facility] Specimen Anatomical Collection Method Collection Time Receive d Time (Source) Location / / Volume Laterality Blood (Blood, 03/26/2020 9:42 AM 03/26/20 20 Venous) BUTCHER HELPER 10:08 AM BUTCHER HELPER Monica Delgado MD LAB BLOOD ORDERABLES Performing Organization Address [facility] e Number [facility] [address] [place] [phone] HIV-1 and HIV-2 antibodies (03/26/2020 9:42 AM BUTCHER HELPER) athologist Signature HIV-1/HIV-2 NON-REACTI Non-Reacti 03/26/2020 [place] VE ve 2:50 PM [facility] Comment: The results from [...] (Blood, 03/26/2020 9:42 AM 03/26/20 20 Venous) BUTCHER HELPER 10:08 AM BUTCHER HELPER Narrative [facility] - 03/11 2:50 PM BUTCHER HELPER Called to Celeste Pettit with REACTIVE HCV .RBA , , 14:47 03/26/2020 TMM Monica Delgado MD LAB BLOOD ORDERABLES Performing Organization Address City/[facility] Code Phon e Number [facility] [address] [place] [phone] Hepatitis B surface antigen (03/26/2020 9:42 AM BUTCHER HELPER) [facility] [place] Method Time Signature Hep. Bs NON-REACTI 03/26/2020 [place] Antigen VE 12:54 PM [facility] (HBsAg) LABORATORY Comment: The results [...] Volume Laterality Blood 03/26/2020 9:42 AM 0 BUTCHER HELPER 10:08 AM BUTCHER HELPER Monica Delgado MD LAB BLOOD ORDERABLES Performing Organization Address City/State/ZIP Code Phon e Number [facility] [address] [place] [phone] (ABNORMAL) Hepatitis C antibody (03/26/2020 9:42 AM BUTCHER HELPER) [facility] [place] Method Time Signature Hepatitis C REACTIVE Non-React 03/26/2020 [place] Antibody (AA) nadia 2:47 PM [facility] Comment: REPORTABLE DISEASE Agent. Must be report ed to [facility] within 1 working day. ??(Department rece iving report is responsible for filling out [facility]-Disease Report Card). It is recommended [...] Volume Laterality Blood 03/26/2020 9:42 AM 0 BUTCHER HELPER 10:08 AM BUTCHER HELPER [facility] - 03/11 2:47 PM BUTCHER HELPER Called to Celeste Pettit with REACTIVE HCV .RBA , , 14:47 03/26/2020 TMM Monica Delgado MD LAB BLOOD ORDERABLES Performing Organization Address City/[facility]/ZIP [facility] e [facility] [address] [place] [phone] Antibody Screen (Gel) (03/26/2020 9:42 AM BUTCHER HELPER) P athologist Signature Antibody NEG 03/26/2020 [facility] 11:09 AM BUTCHER HELPER [place] [facility] Specimen Anatomical Collection Method Collection Time Receive d Time (Source) Location / / Volume Laterality Blood (Blood, 03/26/2020 9:42 AM 03/26/20 20 Venous) BUTCHER HELPER 10:08 AM BUTCHER HELPER Monica Delgado MD LAB BLOOD BANK TEST ORDERABL ES Performing Organization Address City/[facility] Phon e Number [facility] [address] [place] [phone] ABO/Rh (Gel) (03/26/2020 9:42 AM BUTCHER HELPER) P athologist Signature ABO/Rh B POS 03/26/2020 [facility] 11:09 AM BUTCHER HELPER [place] [facility] Specimen Anatomical Collection Method Collection Time Receive d Time (Source) Location / / Volume Laterality Blood (Blood, 03/26/2020 9:42 AM 03/26/20 20 Venous) BUTCHER HELPER 10:08 AM BUTCHER HELPER Monica Delgado MD LAB BLOOD BANK TEST ORDERABL ES Performing Organization Address City/[facility] Phon e Number [facility] [address] [place] [phone] (ABNORMAL) Wet prep, genital (03/26/2020 9:35 AM BUTCHER HELPER) Patholo gist Method Time Signature Yeast, Wet Prep NEGATIVE Negative 03/26/2020 [place] 10:35 AM [facility] Trichomonas NEGATIVE Negative 03/26/2020 [place] 10:35 AM [facility] Clue Cells, Wet NONE SEEN None Seen 03/26/2020 [place] Prep /hpf 10:35 AM [facility] WBC, Wet Prep MANY (A) None Seen 03/26/2020 [place] /hpf 10:35 AM [facility] Specimen Anatomical Collection Method Collection Time Receive d Time (Source) Location / / Volume Laterality Swab 03/26/2020 9:35 AM 0 BUTCHER HELPER 10:08 AM BUTCHER HELPER Monica Delgado MD LAB BODY FLUIDS AND STOOLS O RDERABLES Performing Organization Address City/State/ZIP Code Phon e Number [facility] [address] [place] [phone] documented in this encounter Visit Diagnoses Diagnosis Combined drug dependence, continuous abu se (HCC) - Primary Supervision of high risk , ante 12 weeks gestation of History of hepatitis C virus infection Moderate asthma, unspecified whether com plicated, unspecified whether persistent Skin lesions History of hepatitis C virus infection Supervision of high risk , ante Combined drug dependence, continuous abu se (HCC) documented in this encounter Care Teams Residential Tech Relationship Specialty Start Date End Date None, Pcp PCP - General Land Surveyor 02/06/19 [address] [place] [address] documented as of this encounter
--- OUTSIDE RECORDS SUMMARY | 2022-01-14 01:48 | XMS_ITS | Encounter Summary ---
:1990 Author Organization [facility] Address [address] [place] [address] Care Team Providers Name Role Phone None, Pcp Primary Care Provider Unavailable Reason for Visit Reason Onset Date Comments [id number] Results 03/31/2020 Encounter Details Date Type Department Care Team Description 03/31/2020 Telephone [facility] [place] Nj Prasad MD [id number] Results [facility] Ob /Hoist Cylinder Loader 1650 [facility] [address] [place] [address] [place], [place] [phone] ( rk) Social History Tobacco Use Types [...] 03/21/2020 relatives? How often do you attend latter-day or alevism Not asked 03/21/2020 services? Do you belong to any clubs or organizations such as Argelia schilling 03/21/2020 latter-day groups, unions, fraternal or athletic groups, or [...] with No / Unsure 03/21/2020 1:12 PM BOILER RIVETER someone who was confirmed or suspected to have Coronavirus / COVID-19? documented as of this encounter Miscellaneous Notes Telephone Encounter - Vanessa Yeager RN - 03/31/2020 3:27 PM CST Patient notified of normal [id number] results and male gender per her request. No questions or concerns at this time. ER RIVETER documented in this encounter Plan of Treatment Not on filedocumented as of this encounter Visit Diagnoses Not on filedocumented in this encounter Care Teams Account Executive Metalworking Relationship Specialty Start Date End Date None, Pcp PCP - General Lighting Adviser 02/06/[address] [place] [phone] documented as of this encounter
--- OUTSIDE RECORDS SUMMARY | 2022-01-14 01:49 | XMS_ITS | Encounter Summary ---
:1990 Author Organization [facility] Address [address] [place] [address] Care Team Providers Name Role Phone None, Pcp Primary Care Provider Unavailable Encounter Details Date Type Department Care Team Description 03/13/2019 Immunization SE Asthma & Allergy Chemical dependency (HCC) [address] [place] [address] Social History Tobacco Use Types Packs/Day Years [...] How often do you attend quaker or anglican Not asked 03/21/2020 services? Do [...] place to sleep or slept in a group home (including now)? Sex Assigned at Date Recorded Not on file documented as of this encounter Plan of Treatment Not on filedocumented as of this encounter Visit Diagnoses Diagnosis Chemical dependency (HCC) Unspecified drug dependence, unspecified abuse documented in this encounter Administered Medications Inactive Administered Medications - up to 3 most recent administrations Medication Order MAR Action Action Date Dose Rate Site Naltrexone (VIVITROL) Given 03/13/2019 11:05 380 mg Left Ventrogluteal injectible suspension AM CLEANER AND PRESSER reconstituted suspension 380 mg 380 mg, Intramuscular, Every 28 days, First dose on Tue02/06/19 at 1100, For 3 doses, Administer IM into the upper outer quadrant of the gluteal area; must inject dose using one of the provided needles for administration. Use either the 1.5-inch needle (for very lean patients) or the 2-inch needle (for patients with a larger amount of subcutaneous tissue overlying the gluteal muscle). Either needle may be used for patients with average body habitus. Injection should alternate between the 2 buttocks. Given 02/06/2019 10:25 AM CDT 380 mg Righ t Ventrogluteal documented in this encounter Care Teams Automotive Heavy Mechanic Relationship Specialty Start Date End Date None, Pcp PCP - General Tearoom Hostess 02/06/19 [address] [place] [address] documented as of this encounter
--- OUTSIDE RECORDS SUMMARY | 2022-01-14 01:49 | XMS_ITS | Encounter Summary ---
:1990 Author Organization [facility] Address [address] [place] [address] Care Team Providers Name Role Phone None, Pcp Primary Care Provider Unavailable Reason for Visit Reason Comments Med Management Addiction Problem Encounter Details Date Type Department Care Team Description 02/06/2019 Office Visit SE Asthma & Allergy Boby Byrne MD Chemical dependency (HCC) (Primary Dx); [address] Attention deficit disorder, unspecified hyperactivity presence; [place] [address] Irritable bowel syndrome with constipati on [phone] [place] [address] Social History Tobacco Use Types [...] How often do you attend moravian or confucianism Not asked 03/21/2020 services? Do you belong to any clubs or organizations such as Not chinmay schilling 03/21/2020 moravian groups, unions, fraternal or [...] Sign Reading Time Taken Comments Blood Pressure 142/83 02/06/2019 10:08 AM CDT Pulse 89 02/06/2019 10:08 AM CDT Temperature 36.8 ??C (98.3 ??F) 02/06/2019 10:08 AM CDT Respiratory Rate 16 02/06/2019 10:08 AM CDT Oxygen Saturation - - Inhaled Oxygen Concentration - - Weight 67.2 kg (148 lb 2.4 oz) 02/06/2019 10:08 AM CDT Height 165 cm (5' 4.96) 02/06/2019 10:08 AM CDT Body Mass Index 24.68 02/06/2019 10:08 AM CDT documented in this encounter Progress Notes Boby Byrne MD - 02/06/2019 10:00 AM CDT Estab Patient Visit Subjective Patient ID: Anjali Hoang is a 28 y.o. female. Chief Complaint Patient presents with ??? Med Management ??? Addiction Problem History of Present Illness HPI [facility]. The patient has been having chemical cravings. Would like to get the Vivitrol. Has been tolerating oral naltrexone without any problems. The patient does have a history of irritable bowel syndrome with constipation. In the past was on Amitiza Is wondering if that can be restarted. I will write prescription however not sure that will be covered. Review of Systems Review of Systems Per the history of present illness. The patient denied any other active medical problems or concerns. Allergies Sulfa antibiotics Medications Current Outpatient Medications: ??? acetaminophen (TYLENOL) 500 MG tablet, Take 1,000 mg by mouth every 6 (six) hours if needed for mild pain, Disp: , Rfl: ??? aspirin 325 MG tablet, Take 325 mg by mouth 1 (one) time each day, Disp: , Rfl: ??? ibuprofen (ADVIL,MOTRIN) 200 MG tablet, Take 600 mg by mouth every 6 (six) hours if needed for mild pain Take 600 mg q6h PRN, Disp: , Rfl: ??? albuterol HFA (VENTOLIN HFA) 108 (90 Base) MCG/ACT inhaler, Inhale 2 puffs every 4 (four) hours if needed for wheezing or shortness of breath, Disp: 18 g, Rfl: 1 ??? atomoxetine (STRATTERA) 80 MG capsule, Take 1 capsule (80 mg total) by mouth 1 (one) time each day, Disp: 30 capsule, Rfl: 2 ??? DULoxetine (CYMBALTA) [address] capsule, Take 1 capsule (30 mg total) by mouth 1 (one) time each day Do not crush or chew., Disp: 30 capsule, Rfl: 2 ??? gabapentin (NEURONTIN) 300 MG capsule, Take 1 capsule (300 mg total) by mouth 3 (three) times a day (Patient taking differently: Take 300-600 mg by mouth 3 (three) times a day Take 300 mg QAM and Qafternoon, take 600 mg QPM), Disp: 90 capsule, Rfl: 2 ??? lubiprostone (AMITIZA) 8 MCG capsule, Take 1 capsule (8 mcg total) by mouth 2 (two) times a day with meals, Disp: 60 capsule, Rfl: 0 ??? lubiprostone (AMITIZA) 8 MCG capsule, Take 1 capsule (8 mcg total) by mouth 2 (two) times a day with meals, Disp: 60 capsule, Rfl: 2 ??? naltrexone (DEPADE) 50 MG tablet, Take 1 tablet (50 mg total) by mouth 1 (one) time each day, Disp: 10 tablet, Rfl: 0 ??? nicotine (NICODERM CQ) 21 MG/24HR, Place 1 patch on the skin 1 (one) time each day at the same time, Disp: 30 patch, Rfl: 1 Current Facility-Administered Medications: ??? Naltrexone (VIVITROL) injectible suspension reconstituted suspension 380 mg, 380 mg, Intramuscular, q28 days, Boby Byrne MD The following portions of the patient's chart were reviewed in this encounter and updated as appropriate: Tobacco Allergies Meds Problems Med Hx Surg Hx Fam Hx Objective Physical Exam Vital signs are as per the chart Physical examination in general patient pleasant no apparent distress Heart regular rhythm without murmurs gallops or rubs Lungs clear to auscultation bilaterally Assessment/Plan Diagnoses and all orders for this visit: Chemical dependency (HCC) - Naltrexone (VIVITROL) injectible suspension reconstituted suspension 380 mg Attention deficit disorder, unspecified hyperactivity presence - atomoxetine (STRATTERA) 80 MG capsule; Take 1 capsule (80 mg total) by mouth 1 (one) time each day Irritable bowel syndrome with constipation - lubiprostone (AMITIZA) 8 MCG capsule; Take 1 capsule (8 mcg total) by mouth 2 (two) times a day with meals Plans as noted above. AVS was printed and reviewed with the patient. documented in this encounter Plan of Treatment Not on filedocumented as of this encounter Visit Diagnoses Diagnosis Chemical dependency (HCC) - Primary Unspecified drug dependence, unspecified abuse Attention deficit disorder, unspecified hyperactivity presence Irritable bowel syndrome with constipati on Irritable bowel syndrome documented in this encounter Administered Medications Inactive Administered Medications - up to 3 most recent administrations Medication Order MAR Action Action Date Dose Rate Site Naltrexone (VIVITROL) Given 03/13/2019 11:05 380 mg Left Ventrogluteal injectible suspension AM SPECIAL INVESTIGATION UNIT INVESTIGATOR reconstituted suspension 380 mg 380 mg, Intramuscular, [...] Ventrogluteal documented in this encounter Care Teams Primary Teaching Assistant Relationship Specialty Start Date End Date None, Pcp PCP - General Information Security Analyst 02/06/[address] [place] [phone] documented as of this encounter
--- OUTSIDE RECORDS SUMMARY | 2022-01-14 01:49 | XMS_ITS | Encounter Summary ---
:1990 Author Organization [facility] Address [address] [place] [address] Care Team Providers Name Role Phone None, Pcp Primary Care Provider Unavailable Reason for Visit Reason Onset Date Comments Med Refill 03/12/2019 Encounter Details Date Type Department Care Team Description 03/12/2019 Telephone SE Asthma & Allergy Boby Byrne MD Med Refill [address] [facility] [address] [place] [address] [place] [address] [phone] (Wo rk) Social History Tobacco Use Types [...] How often do you attend anglican or gnosticism Not asked 03/21/2020 services? Do you belong to any clubs or organizations such as Not askbreanne schilling 03/21/2020 anglican groups, unions, fraternal or [...] or slept in a alf (including now)? Sex Assigned at Date Recorded Not on file documented as of this encounter Miscellaneous Notes Telephone Encounter - Kellee Reveles RN - 03/12/2019 6:02 PM CST Sent to [facility] RRAL NURSE Telephone Encounter - Boby Byrne MD - 03/12/2019 5:42 PM CST Okay. RRAL NURSE documented in this encounter Plan of Treatment Not on filedocumented as of this encounter Visit Diagnoses Diagnosis Tobacco dependence - Primary Tobacco use disorder documented in this encounter Care Teams Pension Fund Manager Relationship Specialty Start Date End Date None, Pcp PCP - General Neuropsychiatrist 02/06/19 [address] [place] [address] documented as of this encounter
--- OUTSIDE RECORDS SUMMARY | 2022-01-14 01:49 | XMS_ITS | Encounter Summary ---
:1990 Author Organization [facility] Address [address] [place] [address] Care Team Providers Name Role Phone Unavailable Primary Care Provider Unavailable Encounter Details Date Type Department Care Team Description 01/22/2019 Lab SE Lab Chemical dependency (HCC) [address] [place] [address] Social History Tobacco Use Types Packs/Day Years [...] How often do you attend bahai or buddhist Not asked 03/21/2020 services? Do you belong to any clubs or organizations such as Not chinmay schilling 03/21/2020 bahai groups, unions, fraternal or [...] encounter Progress Notes Boby Byrne MD - 01/22/2019 11:30 AM CDT Liver function testing normal. Okay to start Vivitrol next week. documented in this encounter Plan of Treatment Not on filedocumented as of this encounter Procedures Procedure Name Priority Date/Time Associated Comments Diagnosis GLOMERULAR FILTRATION Routine 01/22/2019 11:36 Chemical depend ency Results for this RATE AM CDT (HCC) procedure are i n the results section. COMPREHENSIVE Routine 01/22/2019 11:36 Chemical dependency Res ults for this METABOLIC PANEL AM CDT (HCC) procedure ar e in the results section. documented in this encounter Results Glomerular filtration rate (GFR) (01/22/2019 11:36 AM CDT) athologist Signature GFR >60 01/22/2019 [facility] 2:21 PM CDT [facility]ENTER [facility] >60 01/22/2019 [facility] [place] GFR 2:21 PM CDT CENTER [facility] Comment: GFR calculated from serum creatinine v alue Chronic Kidney Disease less than 60 mL/m in/1.73 m2 Kidney Failure less than 15 mL/min/1.73 m2 Note: effective 08/24/06 IDRI-Traceable MDRD Study Equation used. Specimen Anatomical Collection Method Collection Time Receive d Time (Source) Location / / Volume Laterality 01/22/2019 11:36 01/22/2019 AM CDT 11:36 AM CDT Boby Byrne MD LAB BLOOD ORDERABLES Performing Organization Address City/State/ZIP Code Phon e Number [facility] [address] [place] [address] (ABNORMAL) Comprehensive metabolic panel (01/22/2019 11:36 AM CDT) [facility] gist Method Time Signature Total Protein 7.8 6.3 - 8.2 01/22/2019 [facility] g/dL 2:21 PM CDT [facility] Albumin, Serum 4.5 3.5 - 5.0 01/22/2019 [place] g/dL 2:21 PM T [facility] Total Bilirubin <0.7 0.1 - 1.0 01/22/2019 [place] mg/dL 2:21 PM [facility] AST 22 8 - 43 U/L 01/22/2019 [place] 2:21 PM [facility] Alkaline 81 38 - 128 01/22/2019 [place] Phosphatase U/L 2:21 PM [facility] ALT (SGPT) 14 0 - 34 U/L 01/22/2019 [place] 2:21 PM [facility] Sodium 142 135 - 145 01/22/2019 [place] mEq/L 2:21 PM [facility] Potassium 5.2 (H) 3.5 - 5.1 01/22/2019 [place] mEq/L 2:21 PM [facility] Chloride 104 98 - 107 01/22/2019 [place] mEq/L 2:21 PM [facility] CO2 28 22 - 29 01/22/2019 [place] mmol/L 2:21 PM [facility] BUN 13 5 - 25 01/22/2019 [place] mg/dL 2:21 PM [facility] Creatinine 0.7 0.4 - 1.2 01/22/2019 [place] mg/dL 2:21 PM [facility] Glucose 102 (H) 70 - 100 01/22/2019 [facility] mg/dL 2:21 PM [facility] Calcium, Total,S 9.7 8.4 - 10.2 01/22/2019 [place] mg/dL 2:21 PM [facility] Fasting? No 01/22/2019 [place] 11:36 AM [facility] Specimen Anatomical Collection Method Collection Time Receive d Time (Source) Location / / Volume Laterality Blood 01/22/2019 11:36 01/22/2019 1:48 AM [facility] PM T Boby Byrne MD LAB BLOOD ORDERABLES Performing Organization Address City/State/ZIP Code Phon e Number [facility] [address] [place] [address] documented in this encounter Visit Diagnoses Diagnosis Chemical dependency (HCC) Unspecified drug dependence, unspecified abuse documented in this encounter
--- OUTSIDE RECORDS SUMMARY | 2022-01-14 01:49 | XMS_ITS | Encounter Summary ---
:1990 Author Organization [facility] Address [address] [place] [address] Care Team Providers Name Role Phone Unavailable Primary Care Provider Unavailable Reason for Visit Reason Onset Date Comments Med Refill 01/29/2019 Encounter Details Date Type Department Care Team Description 01/29/2019 Telephone Asthma & Allergy Boby Byrne MD Med Refill [address] [facility] [address] [place] [address] [place] [phone] (Wo rk) Social History Tobacco Use Types [...] 03/21/2020 relatives? How often do you attend catholic or alevism Not asked 03/21/2020 services? Do you belong to any clubs or organizations such as Not aske shakir 03/21/2020 catholic groups, unions, fraternal or athletic groups, [...] or slept in a usp (including now)? Sex Assigned at Date Recorded Not on file documented as of this encounter Miscellaneous Notes Telephone Encounter - Feng Bah RN - 01/29/2019 5:14 PM CDT rx submitted. Telephone Encounter - Boby Byrne MD - 01/29/2019 3:46 PM CDT Amitiza 8 mcg twice daily Telephone Encounter - Kellee Reveles RN - 01/29/2019 12:41 PM CDT [facility] calling. Pt is asking if you would be able to prescribe pt Amitiza for her IBS issues . Been on this medication previously which helped. documented in this encounter Plan of Treatment Not on filedocumented as of this encounter Visit Diagnoses Diagnosis Irritable bowel syndrome, unspecified ty pe - Primary documented in this encounter
--- OUTSIDE RECORDS SUMMARY | 2022-01-14 01:49 | XMS_ITS | Encounter Summary ---
:1990 Author Organization [facility] Address [address] [place] [address] Care Team Providers Name Role Phone None, Pcp Primary Care Provider Unavailable Reason for Visit Reason Onset Date Comments Med Prior Auth 01/30/2019 Amitiza 8MCG capsule s Encounter Details Date Type Department Care Team Description 01/30/2019 Telephone SE Asthma & Allergy Boby Byrne MD Med Prior Auth (Amitiza [address] 8MCG capsules) [place] [address] SE [phone] [place] [phone] Social History Tobacco Use Types Packs/Day Years [...] How often do you attend mandaen or yazidism Not asked 03/21/2020 services? Do [...] or slept in a assisted (including now)? Sex Assigned at Date Recorded Not on file documented as of this encounter Miscellaneous Notes Telephone Encounter - Feng Bah RN - 02/07/2019 9:28 AM CDT rx's submitted. Telephone Encounter - Boby Byrne MD - 02/07/2019 8:40 AM CDT Miralax okay. Telephone Encounter - Jael Baer MA - 02/07/2019 7:20 AM CDT This is denied, patient must have tried and failed at least 2 standard laxative drug classes. -Osm otic laxatives (lactulose and polyethylene glycol. -stool softener (docusate) -fiber agents (psyllium) -Stimulant laxatives (senna and bisacodyl) -enemas (saline) BCBS Denial Please advise if you would like to appeal as BCBS has changed their appeal format. Please include inthis message any pertinent information pertaining to this drug for the appeal. Telephone Encounter - Feng Bah RN - 01/30/2019 9:00 AM CDT Faxed and called [facility] to ask patient what she has used in the past. Telephone Encounter - Rupinder Carrillo LPN - 01/30/2019 8:50 AM CDT Jon 8MCG capsules Dispatch Officer started NISHA for this drug. Per [employer] they aer asking some clincal questions we will need answered before we can proceed as there is no documentations stating what she has tried and failed in the past. -Has the patient tried and had an inadequate response to at least 2 standard laxative therapy classes? -Does the patient have a documented intolerance, FDA-labeled contraindication, or hypersensitivity to at least 2 standard laxative therapy classes? Cover My Meds: Neely: [id number] - Rx #: [id number] [place] documented in this encounter Plan of Treatment Not on filedocumented as of this encounter Visit Diagnoses Diagnosis Irritable bowel syndrome, unspecified ty pe - Primary documented in this encounter Care Teams Orthopedic Designer Relationship Specialty Start Date End Date None, Pcp PCP - General Senior Laboratory Technician 02/06/[address] [place] [phone] documented as of this encounter
--- OUTSIDE RECORDS SUMMARY | 2022-01-14 01:49 | XMS_ITS | Encounter Summary ---
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 Do you belong to any clubs or organizations such as Not askbreanne d 03/21/2020 restoration groups, unions, fraternal or athletic [...] slept in a skilled nursing (including now)? 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
--- OUTSIDE RECORDS SUMMARY | 2022-01-14 01:49 | XMS_ITS | Encounter Summary ---
:1990 Author Organization [facility] Address [address] [place] [address] Care Team Providers Name Role Phone Unavailable Primary Care Provider Unavailable Encounter Details Date Type Department Care Team Description 01/23/2019 Orders Only SE Asthma & Allergy Boby Byrne MD Attention deficit [address] disorder, [place] [address] SE hyperactivity presence [phone] [place] [phone] Social History Tobacco Use Types [...] How often do you attend faith or confucianist Not asked 03/21/2020 services? Do you belong to any clubs or organizations such as Not aske d 03/21/2020 faith groups, unions, fraternal or athletic [...] this encounter Visit Diagnoses Diagnosis Attention deficit disorder, unspecified hyperactivity presence documented in this encounter
--- OUTSIDE RECORDS SUMMARY | 2022-01-14 01:49 | XMS_ITS | Encounter Summary ---
:1990 Author Organization [facility] Address [address] [place] [address] Care Team Providers Name Role Phone Unavailable Primary Care Provider Unavailable Reason for Visit Reason Comments Med Management Addiction Problem Encounter Details Date Type Department Care Team Description 01/22/2019 Office Visit SE Asthma & Allergy Boby Byrne MD Chemical dependency (HCC) (Primary Dx); [address] Chronic midline low back moises n with bilateral sciatica; [place] [address] Neck pain; [phone] [place], [place] Anxiety; [phone] Depression, unspecified depression type; [phone] Mild intermitte nt asthma without complication; (Work) Attention deficit disorder, unspecified hyperactivity presence; [phone] Tobacco depende nce; (Fax) Abnormal edith sims Social History Tobacco Use Types Packs/Day Years [...] How often do you attend presybeterian or advent Not asked 03/21/2020 services? Do [...] or slept in a long-term (including now)? Sex Assigned at Date Recorded Not on file documented as of this encounter Last Filed Vital Signs Vital Sign Reading Time Taken Comments Blood Pressure 146/85 01/22/2019 10:41 AM CDT Pulse 98 01/22/2019 10:41 AM CDT Temperature 37 ??C (98.6 ??F) 01/22/2019 10:41 AM CDT Respiratory Rate 12 01/22/2019 10:41 AM CDT Oxygen Saturation - - Inhaled Oxygen Concentration - - Weight 67.2 kg (148 lb 2.4 oz) 01/22/2019 10:41 AM CDT Height 165 cm (5' 4.96) 01/22/2019 10:41 AM CDT Body Mass Index 24.68 01/22/2019 10:41 AM CDT documented in this encounter Progress Notes Boby Byrne MD - 01/22/2019 10:30 AM CDT New Patient Visit Subjective Patient ID: Anjali Hoang is a 28 y.o. female. Chief Complaint Patient presents with ??? Med Management ??? Addiction Problem History of Present Illness HPI New resident [place] [facility]. Multiple medical concerns. The patient does have underlying asthma. In general asthma well controlled. Asthma control test score today of 21. Primarily exercise-induced. Currently does not have an albuterol inhaler. The patient would like to start exercising. Therefore would like to get an albuterol inhaler. Patient says that she has chronic pain. No neck pain. Back pain. Back pain with sciatica pain. At the present time the patient does not have any medications. Wondering about different options for pain.To me given that she also has underlying anxiety and depression Cymbalta would be a natural choice for the pain. Also consider gabapentin. Gabapentin in part also for anxiety. The patient says that she has a history of attention deficit disorder. Long- standing problem. Knows that she cannot be on stimulants product. Is willing to try Strattera. The patient had multiple questions regarding the possible use of the Vivitrol. Drug of choice is heroin. The patient would like to try something to cut down on her cravings. Explained the use of oral naltrexone. Checking LFTs. The use of Vivitol. Patient would like to proceed. Patient does need nicotine patch. Family history notable for father and sister who have both been through long- term care program at [facility]. Review of Systems Review of Systems Per the history of present illness. The patient denied any other active medical problems or concerns. The remainder of the review of systems was negative. Allergies Sulfa antibiotics Medications Current Outpatient Medications: ??? ibuprofen (ADVIL,MOTRIN) 200 MG tablet, Take 200-400 mg by mouth every 6 (six) hours if needed for mild pain Take with food., Disp: , Rfl: ??? nicotine (NICODERM CQ) 21 MG/24HR, Place 1 patch on the skin 1 (one) time each day at the same time, Disp: 30 patch, Rfl: 1 ??? albuterol HFA (VENTOLIN HFA) 108 (90 Base) MCG/ACT inhaler, Inhale 2 puffs every 4 (four) hours if needed for wheezing or shortness of breath, Disp: 18 g, Rfl: 1 ??? atomoxetine (STRATTERA) 40 MG capsule, Take 1 capsule (40 mg total) by mouth 1 (one) time each day Swallow capsule whole; do not open. If opened accidentally, do not touch eyes; wash hands immediately (product is an eye irritant)., Disp: 30 capsule, Rfl: 2 ??? DULoxetine (CYMBALTA) [address] capsule, Take 1 capsule (30 mg total) by mouth 1 (one) time each day Do not crush or chew., Disp: 30 capsule, Rfl: 2 ??? gabapentin (NEURONTIN) 300 MG capsule, Take 1 capsule (300 mg total) by mouth 3 (three) times a day, Disp: 90 capsule, Rfl: 2 ??? meloxicam (MOBIC) 15 MG tablet, Take 1 tablet (15 mg total) by mouth 1 (one) time each day, Disp: 30 tablet, Rfl: 2 ??? naltrexone (DEPADE) 50 MG tablet, Take 1 tablet (50 mg total) by mouth 1 (one) time each day, Disp: 10 tablet, Rfl: 0 The following portions of the patient's chart were reviewed in this encounter and updated as appropriate: Tobacco Allergies Meds Problems Med Hx Surg Hx Fam Hx Objective Physical Exam Vital signs are as per the chart Physical examination in general patient pleasant no apparent distress Skin clear Head is normcephalic, atraumatic Eyes conjunctivae clear ENT tympanic membranes translucent, good landmarks bilaterally. Oropharnyx without lesions Neck supple Lymph no significant cervical or supraclavicular adenopathy Heart regular rhythm without murmurs gallops or rubs Lungs clear to auscultation bilaterally Assessment/Plan Diagnoses and all orders for this visit: Chemical dependency (HCC) - Comprehensive metabolic panel; Future Chronic midline low back pain with bilateral sciatica - DULoxetine (CYMBALTA) [address] capsule; Take 1 capsule (30 mg total) by mouth 1 (one) time each day Do not crush or chew. - gabapentin (NEURONTIN) 300 MG capsule; Take 1 capsule (300 mg total) by mouth 3 (three) times a day - meloxicam (MOBIC) 15 MG tablet; Take 1 tablet (15 mg total) by mouth 1 (one) time each day Neck pain - DULoxetine (CYMBALTA) [address] capsule; Take 1 capsule (30 mg total) by mouth 1 (one) time each day Do not crush or chew. - gabapentin (NEURONTIN) 300 MG capsule; Take 1 capsule (300 mg total) by mouth 3 (three) times a day - meloxicam (MOBIC) 15 MG tablet; Take 1 tablet (15 mg total) by mouth 1 (one) time each day Anxiety - DULoxetine (CYMBALTA) [address] capsule; Take 1 capsule (30 mg total) by mouth 1 (one) time each day Do not crush or chew. Depression, unspecified depression type - DULoxetine (CYMBALTA) [address] capsule; Take 1 capsule (30 mg total) by mouth 1 (one) time each day Do not crush or chew. Mild intermittent asthma without complication - albuterol HFA (VENTOLIN HFA) 108 (90 Base) MCG/ACT inhaler; Inhale 2 puffs every 4 (four) hours ifneeded for wheezing or shortness of breath Attention deficit disorder, unspecified hyperactivity presence - atomoxetine (STRATTERA) 40 MG capsule; Take 1 capsule (40 mg total) by mouth 1 (one) time each daySwallow capsule whole; do not open. If opened accidentally, do not touch eyes; wash hands immediately (product is an eye irritant). Tobacco dependence - nicotine (NICODERM CQ) 21 MG/24HR; Place 1 patch on the skin 1 (one) time each day at the same time Abnormal craving - naltrexone (DEPADE) 50 MG tablet; Take 1 tablet (50 mg total) by mouth 1 (one) time each day Nine new problems were addressed as noted above. Prescriptions written as noted above. Lengthy discussion regarding her neck pain and back pain. Talk with her about different options for attention deficit disorder. Also explanation regarding Vivitrol. TOTAL TIME with patient was 45 minutes greater than 50% of time was spent in counseling and coordination of care. Discussing the topics as outlined above. The neck and back pain treatment options. Vivitrol. documented in this encounter Plan of Treatment Not on filedocumented as of this encounter Results (ABNORMAL) Comprehensive metabolic panel (01/22/2019 11:36 AM CDT) [facility] Time Signature Total Protein 7.8 6.3 - 8.2 01/22/2019 MICHAEL g/dL 2:21 PM [facility] Albumin, Serum 4.5 3.5 - 5.0 01/22/2019 MICHAEL g/dL 2:21 PM [facility] Total Bilirubin <0.7 0.1 - 1.0 01/22/2019 MICHAEL mg/dL 2:21 PM [facility] AST 22 8 - 43 U/L 01/22/2019 MICHAEL 2:21 PM [facility] Alkaline 81 38 - 128 01/22/2019 MICHAEL Phosphatase U/L 2:21 PM [facility] ALT (SGPT) 14 0 - 34 U/L 01/22/2019 MICHAEL 2:21 PM [facility] Sodium 142 135 - 145 01/22/2019 MICHAEL mEq/L 2:21 PM [facility] Potassium 5.2 (H) 3.5 - 5.1 01/22/2019 MICHAEL mEq/L 2:21 PM [facility] Chloride 104 98 - 107 01/22/2019 MICHAEL mEq/L 2:21 PM [facility] CO2 28 22 - 29 01/22/2019 MICHAEL mmol/L 2:21 PM [facility] BUN 13 5 - 25 01/22/2019 MICHAEL mg/dL 2:21 PM [facility] Creatinine 0.7 0.4 - 1.2 01/22/2019 MICHAEL mg/dL 2:21 PM [facility] Glucose 102 (H) 70 - 100 01/22/2019 [place] mg/dL 2:21 PM [facility] Calcium, Total,S 9.7 8.4 - 10.2 01/22/2019 MICHAEL mg/dL 2:21 PM [facility] Fasting? 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
== END 2022-01-14 01:49 | disposition home or self-care (01) ==
LOC: ED 01:39
PROVIDERS: Emergency Provider Emergency Medicine
DX: Z48.01 Encounter for change or removal of surgical wound dressing (principal); L01.00 Impetigo, unspecified
CPT/HCPCS: 99282; 99283

== ENCOUNTER 2023-09-29 11:21 | Outpatient (CLI) | payer OTHER, SELFPAY ==
--- OUTSIDE RECORDS SUMMARY | 2023-10-16 21:47 | XMS_ITS | Encounter Summary ---
Author Organization [facility] Address [address] [place] [address] Care Team Providers Care Drilling Superintendent Name Role Phone None, Pcp Primary Care Provider Unavailabl e Encounter Details Date Type Department Care Team (Late st Contact Info) Description 10/06/2022 Patient Outreach [place] [address] [place] [address] Emmanuel Damon MD [address] [place] [phone] Social History Tobacco Use Types Packs/Day Years Used Date Smoking Tobacco: Former Cigarettes Q uit: 03/2020 Smokeless Tobacco: Never Alcohol Use Standard Drinks/Week Comments Not Currently 0 (1 standard drink = 0.6 oz pur e alcohol) Sober since 2014 Humiliation, Afraid, Rape, and Kick questionnair e Answer Date Recorded Within the last year, have y ou been afraid of your partner or ex-partner? No 05/26/2021 Within the last year, have y ou been humiliated or emotionally abused in other ways by your partner or ex-partner? No Within the last year, have y ou been kicked, hit, slapped, or otherwise physically hurt by your partner or ex-partner? No 05/26/2021 Within the last year, have y ou been raped or forced to have any kind of sexual activity by your partner or ex-partner? No 05/26/2021 Social Connection and Isolation Panel [NHANES] A nswer Date Recorded Frequency of Communication with Friends and Fami ly Not on file 05/26/2021 Frequency of Social Gatherin gs with Friends and Family Not on file 05/26/2021 Attends Gnosticist Services Not on file 05/26 Active Member of Clubs or Organizations Not on f ile 05/26/2021 Attends Club or Organization Meetings Not on ivette e 05/26/2021 Are you , , di vorced, , never , or living with a partner? Living with partner 05/26/2021 AUDIT-C Answer Date Recorded Q1: How often do you have a drink containing alc ohol? Monthly or less 05/26/2021 Q2: How many drinks containi ng alcohol do you have on a typical day when you are drinking? 1 or 2 05/26/2021 Q3: How often do you have si x or more drinks on one occasion? Never 05/26/2021 Overall Financial Resource Strain (CARDIA) Answe r Date Recorded How hard is it for you to pa y for the very basics like food, housing, medical care, and heating? Not very hard 05/26/2021 PHQ-2 Answer Date Recorded PHQ-9 Total Score 4 03/15/2022 [facility] - Occupational Stress Questionnaire Answer Date Recorded Do you feel stress - tense, restless, nervous, or anxious, or unable to sleep at night because your mind is troubled all the time - these days? Not at all 05/26/2021 Exercise Vital Sign Answer Date Recorde d On average, how many days pe r week do you engage in moderate to strenuous exercise (like a brisk walk)? 4 days 05/26/2021 On average, how many minutes do you engage in exercise at this level? 20 min 05/26/2021 Hunger Vital Sign Answer Date Recorded Within the past 12 months, y ou worried that your food would run out before you got the money to buy more. Never true 07/11/19 21 Within the past 12 months, t he food you bought just didn't last and you didn't have money to get more. Never true 07/10/2020 [facility] - Transportation Answer Date Re corded In the past 12 months, has l ack of transportation kept you from medical appointments or from getting medications? No 05/12 In the past 12 months, has l ack of transportation kept you from meetings, work, or from getting things needed for daily living? No 05/26/2021 Housing Stability Vital Sign Answer Jack e Recorded In the last 12 months, was t here a time when you were not able to pay the mortgage or rent on time? No 05/26/2021 In the last 12 months, how many places have you lived? 3 05/26/2021 In the last 12 months, was t here a time when you did not have a steady place to sleep or slept in a group home (including now)? No 05/26/2021 Education Answer Date Recorded What is the highest level of school you have completed or the highest degree you have received? High school graduate 03/21/2020 Sex and Gender Information Value Date Recorded Sex Assigned at Not on file Gender Identity Not on file Sexual Orientation Not on file documented as of this encounter Plan of Treatment Not on file documented as of this encounter Goals Goal Patient Goal Type Associated Problems Recent Progress Patient-Stated? Author secure housing General Yes Melissa Coronado, JUAN DIEGO, CHIEF GROWTH OFFICER, PATTERN REPAIR PERSON Note: - has applied for several housing lists; waiting to hear back, wants to be near family Quit using tobacco (cigarettes, smokeless, etc) Tobacco Use No Melissa Coronado, DNP, CHIEF GROWTH OFFICER, PATTERN REPAIR PERSON Note: Will use nicorette gum in case of breakthrough craving. Will find some candy or suckers to use during group to occupy her hands/oral fixation documented as of this encounter Visit Diagnoses Not on filedocumented in this encounter Care Teams Drilling Superintendent Relationship Specialty Start Date End Date None, Pcp [address] [place] [phone] PCP - General Etcher Apprentice 10/27/22 documented as of this encounter
--- OUTSIDE RECORDS SUMMARY | 2023-10-16 21:47 | XMS_ITS | Clinical Summary ---
Author Organization [facility] er Address [address] [place] [address] Care Team Providers Care Quality Review Specialist Name Role Phone None, Pcp Primary Care Provider Unavailabl e Allergies Active Allergy Reactions Criticality Noted Date Comments Dog Epithelium (Canis Lupus Familiaris) Other (see comments) 12/13/2015 Watering eyes Dust Mite Extract Other (see comments) 12/29/19 12 Watering eyes, sneezing Ragweed Other (see comments) 12/13/2015 Water eyes, sneezing Sulfa Antibiotics Unknown 04/12/2013 Reaction as a baby Medications Medication Sig Dispensed Refills Start Date End Date Status bisacodyl (DULCOLAX) 10 MG suppositoryIndicat ions:Other constipation INSERT ONE SUPPOSITORY INTO THE RECTUM ONCE DAILY PRN 30 suppository 3 05/06/2021 Active buprenorphine (SUBUTEX) [address] 1 tablet (8 mg total) under the tongue 2 (two) times a day 05/20/2021 Active buPROPion XL (WELLBUTRIN XL) 150 MG 24 hr tablet Take 150 mg by mouth 1 (one) time each day 07/20/2021 Active busPIRone (BUSPAR) 10 MG tablet Take 1 tablet (10 mg total) by mouth 2 (two) times a day 07/20/2021 Active gabapentin (NEURONTIN) 300 MG capsule Take 300 mg by mouth 2 (two) times a day 02/18/2022 Active nicotine (NICODERM CQ) 14 MG/24HR Place 1 patch on the skin 1 (one) time each day at the same time 02/18/2022 Active ondansetron ODT (ZOFRAN-ODT) 4 MG dispersible tablet Take 1 tablet (4 mg total) by mouth every 8 (eight) hours if needed 02/04/2022 Active menthol (Misenheimer Cough Drops) 7.6 MG lozenge Dissolve 1 lozenge (7.6 mg total) in the mouth every 2 (two) hours if needed for sore throat Active omeprazole (PriLOSEC) [address] capsule Take 1 capsule (20 mg total) by mouth if needed 03/16/2022 Active chlorhexidine (PERIDEX) 0.12 % solution 04/23/2022 Active Vyvanse 30 MG capsule Take 1 capsule (30 mg total) by mouth 1 (one) time each day in the morning 08/18/2022 Active Active Problems Problem Noted Date Diagnosed Date History of poor growth 08/24/2021 Overview: @ end of 2nd growth plateau --> but not SGA Plan 30 and 36 week growth. Unwanted fertility 08/24/2021 Overview: Desires sterilization Episode of recurrent major depressive disorder 0 07/29/2021 Overview: 07-27-2021: Currently on multiple medications. Currently stable and under the care of an outside psychiatrist (records requested). [facility] Attention deficit hyperactiv ity disorder (ADHD), combined type 07/29/2021 Overview: 07-27-2021: Currently under medical treatment. [facility] History of section, classical Overview: 09/08/2021 MFM I reviewed with the [...] to help guide her in this window. 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 2nd child was fine. [ ] 24 week echo Patient TORRES ([facility]) 06/19/2020: Final Impressions 1. Normal cardiac valves. ??Trileaflet aortic valve. 2. Normal left ventricular chamber size. ??Calculated ejection fraction 62%. 3. No regional wall motion abnormalities. 4. Normal left ventricular diastolic function. 5. Normal right ventricular chamber size and systolic function. 6. Estimated right ventricular systolic pressure 28 mmHg (systolic blood pressure 120 mmHg). 7. Normal ascending aorta diameter. 8. No pericardial effusion. History of gestational hypertension 06/20/2020 Overview: @ end of first Opioid use disorder, moderat e, in early remission, on maintenance therapy 04/17/2020 Overview: Sober since fall, last use 01/2021. Relapse with depression prescriber - Tone Carroll - [facility]. subutex - 8 in Am, 8 in evening, has a 2 for if needed. 09.08.21 MFM 09.08.21 [facility] Drug dependence, opioid use disorder in early [...] mg daily with follow-up in 4 weeks , supervision, high-risk, third trimest er 03/21/2020 Overview: 03.20.20 triage intake Last menstrual period: no idea, I have very irregular periods. I had an ultrasound at [facility] - unknown Positive test date: 02/09/2020 Does the patient have nausea or vomiting? 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 Biliary tract dysfunction. Acute abdomen. 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 Moderate and severe hepatic impairment. Drug abusers. Reevaluate periodically. Avoid abrupt cessation. Elderly. Labor & delivery: may need additional analgesia. /: may need dose adjustments; monitor closely for withdrawal. Potential opioid withdrawal syndrome during prolonged use. 1.16.20 [facility] RPR- Rubella i HIV ?? -/- HepB sAg- Hgb 12.6 g/dL Plt 282K B+ Ab- RUDS Buprenorphine, U+ UCx mixed lisa Pap HPV- wnl GC/Chlam -/- 12.17.20 [id number] wnl XX 28 Week Labs Lab Results Component Value Date HGB 11.6 (L) 07/10/2020 PLT 300 07/10/2020 GLUT1 112 07/10/2020 RPR NON-REACTIVE 07/10/2020 09/08/2021 MFM ?? Weight gain should be determined by prepregnancy BMI (usually up to 15 lbs). ?? Perform an early assessment for GDM and repeat glucola at 28 weeks. ?? US for growth at 30-32 weeks ?? No need for antepartum surveillance for the indication of opioid dependence on maintenance therapy unless currently using ?? Ongoing drug screening per protocol and maternal drug screening and meconium screening at delivery ?? Patient may continue ADD medicines if she feels the benefits outweigh the risks ?? echo for history of CHD prior baby ?? 09/30/2021 Patient was supposed to have a echo today and no showed her appointment. ?? Plan section at 37 and 0 through 38 and 0 ?? with tubal ligation ?? sign tubal papers later in ?? Follow for peripartum mood disorder ?? At risk for relapse after delivery given history ?? Follow asthma, headaches though these are not current issues ?? Patient is made aware of increased risk. ?? If is needed, consider increased doses (cefazolin 3 grams for women ?120 kg) and/or broad spectrum antibiotics (addition of azithromycin 500 mg if in labor) ?? Recommend SCDs and consider prophylactic heparin until discharge --Consider anesthesia consult in third trimester as pain management can be difficult --Patient is aware that risk of abstinence is present and may require transfer of care to [facility] Alteration in parenting 03/21/2020 Overview: 20 NOB @[facility] Patient is engaged and has a 5yo son who resides with his paternal grandmother. She feels he is safe. Patient resides with grandparents, father, sister, and sister's girlfriend. Thursday March 26, 2020 12w4d States she and her son's FOB have frequent contact with him. Irritable bowel syndrome with constipation 07/31 Overview: Long-standing Has taken amitiza No stool unless uses a suppository or an enema. 09/08/2021 [facility] IBS symptoms Constipation predominant and dependent upon Dulcolax suppositories for bowel movements since childhood; not been seen yet by GI medicine due to Covid -->still ongoing; her eval was cancelled due to covid; will pursue pp Disorder of arteries and arterioles 02/01/2019 Overview: 04.23.19 entry Patient also was admitted to [facility] with strokelike symptoms February 01. 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 Has been maintained on aspirin. No further symptoms. 02.01.19 [facility] Result Impression 1. No acute intracranial findings. [...] or dissection. Conventional anatomy of the patent lummi of Rocha and vertebrobasilar system without hemodynamically significant stenosis, occlusion, or aneurysm. Major dural venous sinuses are patent. Findings discussed with Dr. Mirza (pager [phone]) at 4:30 AM on 02/01/2019. .. Neuro Anjali Hoang is a 29 y.o. [...] for the pain. For completeness' sake, the [facility] recommended repeat CTA imaging of [...] of the neck has been ordered, per [facility]'s recommendations. If this shows continued evidence of carotid web, her aspirin can be discontinued. No follow-up will be scheduled at this time; I will contact her with the results by telephone. She has a copy of my business card if needed. She has no further questions or concerns, and is pleased with this plan. ?? History of hepatitis C virus infection 8 Overview: Spontaneously resolved Lab Results Component Value Date [...] h/o hospitalization Nicotine dependence 04/02/2011 Overview: vaping Resolved Problems Problem Noted Date Diagnosed Date Resolved Date Encounter for care and exami nation of lactating mother 10/03/2020 08/24/2021 Drug dependence affecting pr egnancy, childbirth, or puerperium 06/20/2020 11/21/2020 Weight gain 04/25/2020 08/24/2021 Overview: 04/25/20 Pain at 16-week visit. Patient noted an increase in weight gain when she became and also quit using drugs. We will continue to monitor closely to see if this is an ongoing trend.-MSR Other constipation 04/23/2020 Overview: 04/23/20 Chronic issue. Was supposed to have scopes prior to cancelled due to COVID-19. Daily suppositories-MSR Unsure of last menstrual per iod as reason for ultrasound scan 03/21/2020 04/14/2020 Overview: Dating by 02.25.20 8+2 -> EDC 10.04.20 @ [facility] Combined drug dependence, continuous abuse 02/25/2020 11/21/2020 Overview: As of 04.23.19 [facility] Per 02.25.20 NOB @[facility]: ? ? Drug use: Yes Types: Methamphetamines, Heroin, Cocaine Comment: Last use yesterday 01/30/2020 heroin, methamphetamin (Tuesday01/29/2020) 11. RUDS - Buprenorphine, U+ only #2 Dependence Polysubstance Continuous (HCC) The patient is followed by her addiction physician, Dr. Anthony Rebolledo ([phone]) and has an appointment with him scheduled on Tuesday. Of note, she would like to enroll in inpatient rehabilitation through [facility] ([phone]) and we will address this later this week. A urine drug screen will be obtained today, and the patient has been counseled regarding the risks associated with drug use during the . 03.21.20 [facility] [place] [place] Phone Call RN [...] Subutex. Anjali is currently in treatment at [facility] and plans to be there for another 45 days. She has been sober for about three weeks for now. LOPEZ is currently in detention and they are both working on themselves right now and not together. He has a history of drug and alcohol use as well. Both of Anjali's parents and grandparents also have had drug and alcohol abuse issues. She hopes [facility] be accepted into [facility] upon release from her current inpatient program. [place] , amphetamines and heroin, the latter her DOC. 2.3.21 [facility] Drug dependence, opioid use disorder in early remission On maintenance therapy HPI: Longstanding drug use since age 20. Drugs of choice- methamphetamines heroin and cocaine. Positive history of IV drug use. last use February 2020. Now on buprenorphine/Subutex 20 mg daily, prescribed by addiction physician at [facility] clinic. In treatment at [facility] --> recent discharge to an outpatient rehab facility [facility] is happening [facility] [place]. In intensive therapy 5 days a week. Father of the baby incarcerated/history of drug and alcohol use but plans to reunite under 1 roof. No involuntary termination of parental rights. 07/07/20 Referred to [facility] given use of Suboxone and possibility of ERIS in [facility] consult with Ultrasound at [facility] on 06/20/2020 - Delivery planned at [facility], but would like to continue care at [facility] until 36 weeks, then transfer over. Opioid dependence in remission 08/01/2019 03/21/2020 Peripheral vascular disease 04/26/2019 03/21/2020 Migraine headache 05/18/2017 11/21/2020 Overview: WITH aura, Vision starts going, tunnel vision. Unspecified viral hepatitis C without hepatic coma 05/18/2017 08/29/2020 Chronic pain syndrome 05/31/20162019 Other long-term (current) drug therapy 04/05/2016 08/24/2021 Overview: Buprenorphine for history of opioid use disorder. Immunizations Name Administration Dates Next Due Influenza 6mo-64yrs Quad Pre servative Free IM 04/27/2021,06/17/2018 Influenza TIV (IM) 05/26/2012,01/17/2012 Pneumococcal Polysaccharide 05/27/2012 TD Preservative Free 07/22/2019 Tdap 11/29/2021, 1,06/26/2013,12/01 Family History Medical History Relation Comments Alcohol [...] Cigarettes Q uit: 03/2020 Smokeless Tobacco: Never Tobacco Cessation:Counseling Given: Not Answered Alcohol Use Standard Drinks/Week Comments Not Currently [...] and Family Not on file 05/26/2021 Attends [employer] Not on file 05/26 Active Member [...] Date Recorded PHQ-9 Total Score 4 03/15/2022 [facility] [place] [facility] - Occupational Stress Questionnaire Answer Date Recorded [...] or slept in a half-way (including now)? No 05/26/2021 Education Answer Date Recorded What is the highest level of school you have completed or the highest degree you have received? High school graduate 03/21/2020 Sex and Gender Information Value Date Recorded Sex Assigned at Not on file Gender Identity Not on file Sexual Orientation Not on file Last Filed Vital Signs Vital Sign Reading Time Taken Comments Blood Pressure 103/69 08/27/2022 7:45 PM CDT Pulse 82 08/27/2022 7:45 PM CDT Temperature 36.4 ??C (97.5 ??F) 08/27/2022 7:45 PM CD T Respiratory Rate 16 08/27/2022 7:45 PM CDT Oxygen Saturation 99% 08/27/2022 7:45 PM CDT Inhaled Oxygen Concentration - - Weight 81.1 kg (178 lb 14.5 oz) 08/27/2022 7:45 PM CDT Height 166.1 cm (5' 5.4) 08/27/2022 7:45 PM CDT Body Mass Index 29.41 08/27/2022 7:45 PM CDT Plan of Treatment Health Maintenance Due Date Last Done Comments Pap Smear 1989 COVID-19 Vaccine (2022-24 season) 2022 Influenza Vaccine (#1) 2023 2, 06/17/2018, 05/26/2012, Additional history exists DTaP,Tdap,and Td Vaccines (6 - Td or Tdap) 11/30/2031 11/29/2021, 07/10/2020, 07/22/2019, Additional history exists Pneumococcal Vaccine: Pediatrics (0 to 5 Years) and At-Risk Patients (6 to 64 Years) Aged Out 05/27/2012 No longer eligible based on patient's age to complete this topic HPV Vaccines Aged Out No longer eligi ble based on patient's age to complete this topic Goals Goal Patient Goal Type Associated Problems Recent Progress Patient-Stated? Author secure housing General Yes Melissa Coronado, DNP, ENERGY ATTORNEY, TAPPER HELPER Note: - has applied for several housing lists; waiting to hear back, wants to be near family Quit using tobacco (cigarettes, smokeless, etc) Tobacco Use No Melissa Coronado, DNP, ENERGY ATTORNEY, TAPPER HELPER Note: Will use nicorette gum in case of breakthrough craving. Will find some candy or suckers to use during group to occupy her hands/oral fixation Care Teams Quality Review Specialist Relationship Specialty Start Date End Date None, Pcp [address] [place] [phone] PCP - General Hyperion Analyst 10/27/22
== END 2023-09-29 11:22 | disposition home or self-care (01) ==
LOC: AMB 10-16 21:45
PROVIDERS: Visit Provider Family Medicine
DX: S59.909A Unspecified injury of unspecified elbow, initial encounter (principal); Y08.89XA Assault by other specified means, initial encounter; Y92.818 Other transport vehicle as the place of occurrence of the external cause
CPT/HCPCS: A0998